=== PATIENT | female | born 1960 | race Caucasian/White ===

== ENCOUNTER → 2025-07-26 | Outpatient (CLI) | payer OTHER, SELFPAY ==
[2025-07-26 16:46] LABS: PTHIN 145 pg/mL (11-61)
[2025-07-26 17:03] LABS: Calcium 10.3 mg/dL (7.6-11.0); Vitamin D,25 Hydroxy 19.1 ng/mL (30-100)
== END | disposition home or self-care (01) ==
LOC: LAB 15:34
PROVIDERS: PCP Family Medicine; Referring Provider Surgery; Visit Provider Surgery
DX: D35.1 Benign neoplasm of parathyroid gland (principal); R79.89 Other specified abnormal findings of blood chemistry; E83.52 Hypercalcemia
CPT/HCPCS: 36415; 82306; 82310; 83970

== ENCOUNTER → 2025-08-02 | Outpatient (CLI) | payer OTHER, SELFPAY ==
[2025-08-02 12:29] LABS: (24 HR) Urine Calcium 390.4 mg/24 HR (100.0-300.0); Calcium Urine pH Range 2
== END | disposition home or self-care (01) ==
LOC: LABSPEC 09:56
PROVIDERS: PCP Family Medicine; Referring Provider Surgery; Visit Provider Surgery
DX: D35.1 Benign neoplasm of parathyroid gland (principal); R79.89 Other specified abnormal findings of blood chemistry; E83.52 Hypercalcemia
CPT/HCPCS: 81050; 82340

== ENCOUNTER → 2025-09-12 | Outpatient (CLI) | payer OTHER, SELFPAY ==
[2025-09-12 17:07] LABS: PTHIN 114 pg/mL (11-61)
[2025-09-12 17:30] LABS: Calcium 11.0 mg/dL (7.6-11.0); Vitamin D,25 Hydroxy 36.7 ng/mL (30-100)
== END | disposition home or self-care (01) ==
LOC: LAB 15:27
PROVIDERS: PCP Family Medicine; Referring Provider Surgery; Visit Provider Surgery
DX: D35.1 Benign neoplasm of parathyroid gland (principal)
CPT/HCPCS: 36415; 82306; 82310; 83970

== ENCOUNTER 2025-10-14 05:51 | Day surgery (SDC) | payer OTHER, SELFPAY ==
--- NOTE | 2025-10-01 10:48 | EKG12_ITS ---
Test Reason : PREOP Blood Pressure : */* mmHG Vent. Rate : 68 BPM Atrial Rate : 68 BPM P-R Int : 162 ms QRS Dur : 80 ms QT Int : 376 ms P-R-T Axes : 62 68 0 degrees QTcB Int : 399 ms Normal sinus rhythm Low voltage QRS Nonspecific ST and T wave abnormality Abnormal ECG Confirmed by Krishna Diaz ([id number]), assignment editor KAMINI WEBER ([id number]) on 10/02/2025 7:16:35 AM Referred By: Krishna Caraballo Confirmed By: Krishna Diaz
[2025-10-01 13:21] LABS: Anion Gap 8 (5-15); BUN 12 mg/dL (4-19); BUN/Creat Ratio 13.8 RATIO (10-20); Calcium,Total 10.5 mg/dL (7.6-11.0); Carbon Dioxide 26.5 mmol/L (21.0-32.0); Chloride 105 mmol/L (98-108); Glucose 212 mg/dL (70-99); Potassium 4.2 mmol/L (3.3-5.1)
--- NOTE | 2025-10-02 10:17 | PAT.ANE_ITS ---
Pre-Assessment Diagnosis/Proposed Procedure Planned Operative Procedure(s): (N/A) Parathyroidectomy w/IONM Anesthesia History Anesthesia History - nurse sane: Anesthesia History - nurse sane Hx Hospitalization No 09/30/25 11:04 Any Problems With Anesthesia Yes 09/30/25 11:04 Cholinesterase deficiency No 09/30/25 11:04 You/Your Family Experience No 09/30/25 11:04 fever (hyperthermia) with Relationship Recent Exposure to Contagious Disease Does patient have nerve No 09/30/25 11:04 stimulator Patient instructed to have device shut off --Does patient have Pacemaker or ICD? When Was Last Pacemaker Check QUESTION #4 FULL TEXT: You/Your Family Experience fever (hyperthermia) with Anesthesia Last Oral Intake Last Oral intake: Last Oral Intake NPO since Meds taken in AM with sips of water? Meds patient instructed to take am of surgery PONV PONV - nurse sane: PONV - nurse sane Female Yes 09/30/25 11:04 HX of Motion Sickness Yes 09/30/25 11:04 HX of N/V After Surgery Yes 09/30/25 11:04 Non-Smoker Yes 09/30/25 11:04 Duration of Surgery greater Yes 09/30/25 11:04 than 60 minutes Number of Risk Factors 5 09/30/25 11:04 PONV Score Severe Risk 09/30/25 11:04 Height & Weight Height & Weight: Anesthesia: Height & Weight Height 5 ft 4 in 09/12/25 14:25 Respiratory Assessment Respiratory Assessment - nurse sane: Respiratory Tract Infection Hx - nurse sane Hx Respiratory Tract Infection No 09/30/25 11:04 STOP Sleep Apnea STOP Sleep Apnea - nurse sane: STOP Sleep Apnea - nurse sane Hx Hypertension Yes: controlled with med 09/30/25 11:04 Hx Sleep Apnea No 09/30/25 11:04 CPAP BIPAP Do you snore loudly (louder Yes 09/30/25 11:04 than talking or can be heard Do you often feel tired/ No 09/30/25 11:04 fatigued/ sleepy during daytime? Has anyone observed you stop No 09/30/25 11:04 breathing during sleep? STOP Results Positive 09/30/25 11:04 QUESTION #5 FULL TEXT : Do you snore loudly (louder than talking or can be heard through closed doors)? Tobacco Use History Tobacco Use History - nurse sane: Tobacco Use History - nurse sane Tobacco Use Smoking Status Never smoker 09/30/25 11:04 Hx Tobacco Use No 09/30/25 11:04 Years Smoking Packs Smoked per Day Smoking Cessation Date was within the last 15 years Hx Smoking Cessation Date Hx Smoking Cessation Counseling Hematologic Medial History Hematologic Hx - nurse sane: Hematologic Medical Hx - psychiatric lpn Hx of Blood Transfusion No 09/30/25 11:04 Hx of Transfusion in last 3 No 09/30/25 11:04 Months Date of Last Transfusion (if within last 3 months) Ever experience any problems No 09/30/25 11:04 with transfusion(s)? Specify any problems Hx of Preganancy in last 3 N/A 09/30/25 11:04 Months Nurse Filling Out Transfusion NBUCHER 09/30/25 11:04 & Questions: Date: 09/30/25 09/30/25 11:04 Time: 11:06 09/30/25 11:04 Patient unable to answer at this time (ie. confused, unrespo /Reproduction History /Reproductive History - nurse sane: /Reproductive Hx- nurse sane Hx Now No 09/30/25 11:04 Gestational Age (in weeks): EDC: Hx Hx Para Hx Section SAB No 09/30/25 11:04 [facility] Medical History (Updated 09/30/25 @ 11:17 by Sharmin Doe) Wears glasses Cancer High cholesterol PONV (postoperative nausea and vomiting) History of IBS Non-smoker Leg cramps Parathyroid adenoma Low vitamin D level Serum calcium elevated Elevated parathyroid hormone Fatigue Acid reflux HTN (hypertension) Diabetes Breast cancer Home Medications Medication Instructions Recorded Last Taken Type atorvastatin 40 mg tablet (Lipitor) 40 mg PO QDAY 06/29 08/22 Unknown History famotidine 20 mg tablet 20 mg PO BID 07/26/25 Unknow n History lisinopril 10 mg tablet 10 mg PO QDAY 07/26/25 Unkno wn History metformin 500 mg tablet,extended 500 mg PO BID 5 Unknown History release 24 hr cetirizine 10 mg tablet (24Hour 10 mg PO DAILY PRN all ergy symptoms 09/30/25 Unknown History Allergy) cholecalciferol (vitamin D3) 1,250 1,250 mcg PO QWEEK 09/30/25 Unknown History mcg (50,000 unit) capsule Allergy/AdvReac Type Severity Reaction Status Date / Time Penicillins (PCN) Allergy Mild Hives Verified 09/30/25 11:02 Surgical History S/P lumpectomy, right breast S/P tubal ligation Hx of exploratory laparotomy S/P D&C (status post dilation and curettage) S/P section S/P laparoscopic cholecystectomy S/P appendectomy Social History Smoking Status: Never smoker alcohol intake: never Audit: Pertinent Findings Pertinent Findings EKG Perinent findings: 09/2025: Normal sinus rhythm Low voltage QRS Nonspecific ST and T wave abnormality Recommendation Anesthesia Recommendation Anesthesia recommendation: OPTIMIZED for anesthesia
[2025-10-14] VITALS (11 sets, daily range): BP systolic 139–170; BP diastolic 85–98; PULSE 79–116; RESP 16–18; TEMP 36.1–37.2; O2SAT 93–100; BMI 34.8
--- OUTSIDE RECORDS SUMMARY | 2025-10-14 05:56 | XMS RPT_ITS | CCD ---
Author Organization [facility] Inform ion [facility] Care Team Providers Care Aerospace Project Engineer Name Role Phone KarloJair tavaresvadim Ulloa Unavailable Unavailable KarlojasJair bossvadim Ulloa Unavailable Unavailable Hawk Zavala Unavailable Unavailable Amirneni, Kartikee Vlad Primary Care Provider Braden Gee Admitting Unavailable Respiratory Medicine PhysicianBraden bennett Attending Unavailable Amirneni, Vamsee K. Admitting Unavailable Amirneni, Vamsee K. Attending Unavailable Amirneni, Vamsee K. Admitting Unavailable Amirneni, Vamsee K. Attending Unavailable Izabella Lopez Unavailable Unavailable Amirneni, Dereje Jcishna Primary Care Provider Izabella Lopez Unavailable Unavailable Amirneni, Luciaaktano JcVlad Primary Care Provider Amirnadya, Vamsee Vlad Unavailable Amirnadya, Vamsee Vlad Unavailable Maya MORALES, Luciaaktano Chu Primary Care Provide r Izabella Lopez RN Unavailable Unavailab Dereje Gomez MD Unavailable Lucia Trejo MDaktano Chu Primary Care Provide r Maya MORALES, Dereje Chu Unavailable LYN JAMISON Admitting Unavail able LYN JAMISON Attending Unavail able DEREJE TREJO Primary Care Unavail able [facility] John BROWNLEE, Izabella S Unavailable Unavailab mohsen Trejo [facility] Maya MORALES, [facility] Provider Maya MORALES, [facility] Provide r John BROWNLEE, Izabella S Unavailable Unavailab mohsen Trejo MD, [facility] Unavailable Maya MORALES, [facility] Provide r Maya MORALES, [facility] Unavailable Maya MORALES, [facility] Provide r John BROWNLEE, Izabella S Unavailable Unavailab mohsen Trejo MD, [facility] Un[facility] Maya MORALES, [facility] Primary [facility] Provide r John BROWNLEE, Izabella S Unavailable Unavailab mohsen Trejo MD, [facility] Unavailable Maya [facility]ORALES, [facility] Un[facility] DAMON COE Attending Unava ilable MAYA, [facility] Primary Care Unavail able SEBAS LEE Attending Unavailabl e SALINARNADYA, [facility] Primary Care Unavail able Melvi MORALES, Elo Camejo Primary Care Pro vider John BROWNLEE, Izabella S Unavailable Unavailab mohsen Trejo MD, [facility] Un[facility] Melvi MORALES, Elo Camejo Primary Care Pro vider Meliv MORALES, Elo Camejo Unavailable Maya MORALES, [facility] Primary [facility] Provider SELF, SELF Referring Un[facility] Unavailable OH PRICE Attending Unavailable Melvi, Elo Primary Care Provider [phone] [employer] BEAUTY SALES ADVISOR, Shannan L Unavailable BAN, SHANNAN Attending Unavailable MELVI, ELO Primary Care Unavailable BAN, SHANNAN Attending Unavailable MELVI, ELO Primary Care Unavailable BAN, SHANNAN Attending Unavailable MELVI, ELO Primary Care Unavailable HANSA, ROBBIE N. Referring Unavailable HANSA, ROBBIE N. Attending Unavailable MELVI, ELO ROLANDO MOUNIR Primary Care Blanca vailable HANSA, ROBBIE N. Attending Unavailable MELVI, ELO ROLANDO MOUNIR Primary Care Blanca vailable HANSA, ROBBIE N. Referring Unavailable HANSA, ROBBIE N. Attending Unavailable MELVI, ELO ROLANDO MOUNIR Primary Care Blanca vailable HANSA, ROBBIE N. Referring Unavailable ELO OGDEN MD Primary Care Provider ELO OGDEN MD Referring Provider Dr. Krishna Caraballo MD Attending Provider Dr. Krishna Caraballo MD Referring Provider [phone] [employer] BEAUTY SALES ADVISOR, Shannan L Unavailable HANSA, ROBBIE N. Attending Unavailable HANSA, ROBBIE N. Referring Unavailable MELVI, ELO ROLANDO MOUNIR Primary Care Blanca vailable MELVI, ELO ROLANDO MOUNIR Primary Care Blanca vailable MELVI, ELO ROLANDO MOUNIR Attending Blanca vailable MELVI, ELO ROLANDO MOUNIR Referring Blanca vailable ZHENG, SHANNAN L Attending Unavailable ZHENG, SHANNAN L Referring Unavailable MELVI, ELO ROLANDO MOUNIR Primary Care Blanca vailable ZHENG, SHANNAN L Referring Unavailable STEPHEN SOLOMON Attending Unavailable MELVI, ELO ROLANDO MOUNIR Primary Care Blanca vailable ZHENG, SHANNAN L Admitting Unavailable HANSA, ROBBIE N. Admitting Unavailable HANSA, ROBBIE N. Attending Unavailable MELVI, ELO ROLANDO MOUNIR Primary Care Blanca vailable ELO OGDEN MD Primary Care Physician Dr. Krishna Caraballo MD Attending Physician SHANNAN CALZADA Attending Unavailable MELVI, ELO ROLANDO MOUNIR Primary Care Blanca vailable MELVI, ELO ROLANDO MOUNIR Primary Care Blanca vailable MELVI, ELO ROLANDO MOUNIR Attending Blanca vailable MELVI, ELO ROLANDO MOUNIR Primary Care Blanca vailable MELVI, ELO ROLANDO MOUNIR Attending Blanca vailable MELVI, ELO ROLANDO MOUNIR Referring Blanca vailable MELVI, ELO ROLANDO MOUNIR Admitting Blanca vailable MELVI, ELO ROLANDO MOUNIR Primary Care Blanca vailable SEBAS LEE Attending Unavailab GWEN Wilson Attending Unavail able MELVI, ELO ROLANDO MOUNIR Primary Care Blanca vailable SEBAS LEE Referring Unavailab SHANNAN Victor Attending Unavailable MELVI, ELO ROLANDO MOUNIR Primary Care Blanca vailable MELVI, ELO ROLANDO MOUNIR Primary Care Blanca vailable MELVI, ELO ROLANDO MOUNIR Attending Blanca vailable MELVI, ELO ROLANDO MOUNIR Referring Blanca vailable MELVI, ELO ROLANDO MOUNIR Admitting Blanca vailable ROBBIE SANTO Attending Unavailable MELVI, ELO ROLANDO MOUNIR Primary Care Blanca vailable ROBBIE SANTO Attending Unavailable MELVI, ELO ROLANDO MOUNIR Primary Care Blanca vailable MELVI, ELO ROLANDO MOUNIR Primary Care Blanca vailable MELVI, ELO ROLANDO MOUNIR Attending Blanca vailable MELVI, ELO ROLANDO MOUNIR Primary Care Blanca vailable MELVI, ELO ROLANDO MOUNIR Attending Blanca vailable Krishna Caraballo Attending Unavailable MELVI, ELO Primary Care Unavailable MELVI, ELO Referring Unavailable MELVI, ELO Primary Care Unavailable MELVI, ELO Referring Unavailable Krishna Caraballo Attending Unavailable Krishna Caraballo Attending Unavailable [employer] Unavailable MELVI, ELO Primary Care Unavailable Krishna Caraballo Referring Unavailable Krishna Caraballo Referring Unavailable ELO OGDEN Primary Care Unavailable Krishna Caraballo Attending Unavailable Krishna Caraballo Referring Unavailable ELO OGDEN Primary Care Unavailable Krishna Caraballo Attending Unavailable Krishna Caraballo Referring Unavailable ELO OGDEN Primary Care Unavailable Krishna Caraballo Attending Unavailable Allergies Allergy Classification Reported Allergen(s) Allergy Type Date of Onset Reaction(s) Facility NSAIDs (1 source) NSAIDs Drug Allergy 7 [facility] Work Phone: Penicillins (antibiotic) (9 sources) Penicillins; 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: [PENICILLINS] Drug Allergy 7 Swelling [facility] (20 sources) Penicillins; 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: [penicillins] Propensity to adverse reactions to drug (disorder) 7 Swelling [facility] Repository Comment on above: swelling (20 sources) NSAIDs Propensity to adverse reactions to drug 7 [facility] Medications Current Medications Medication Drug Class(es) Dates Sig (Normalized) Sig (Original) anastrozole 1 mg oral tablet (18 sources) Aromatase Inhibitor Start: 06-19-2019 End: 09-10-2020 take 1 tablet by mouth once daily anastrozole (ARIMIDEX) 1 mg tablet Indications: Invasive ductal carcinoma of breast, female, right (HCC) Take 1 (one) tablet (1 mg total) by mouth daily . 30 tablet 5 03/14/2020 09/10/2020 Active atorvastatin 40 mg oral tablet (20 sources) HMG-CoA Reductase Inhibitor Start: 07-26-2025 take 1 tablet by mouth once daily Start: 05-19-2018 End: 10-24-2024 take 1 tablet by mouth once daily atorvastatin (LIPITOR) 40 MG tablet Indications: Type 2 diabetes mellitus without complication, without long-term current use of insulin (HCC) Take 1 (one) tablet (40 mg total) by mouth daily . 100 tablet 3 10/24/2024 Active azithromycin 250 mg oral tablet (8 sources) Macrolide Antimicrobial Start: 08-18-2023 End: 08-23-2023 Azithromycin (Zithromax Z-Davin) 250 MG tablet Indications: Acute non-recurrent sinusitis, unspecified location Take 2 tablets (500 mg) on Day 1, then 1 tablet (250 mg) daily on Days 2-5 6 tablet 0 08/18/2023 08/23/2023 Active Start: 04-12-2021 End: 06-25-2021 azithromycin (Zithromax Z-Pa k) 250 MG tablet Take 2 tabs today, then one tab daily x 4 days . 6 tablet 0 04/12/2021 06/25/2021 Discontinued Start: 01-12-2020 azithromycin ( Zithromax Z-Davin) 250 MG tablet Indications: Bilateral otitis media, unspecified otitis media type Take 2 tablets on day one and 1 tablet on days 2 through 5. . 6 tablet 0 01/12/2020 Active benzonatate 200 mg oral capsule (5 sources) Non-narcotic Antitussive Start: 08-18-2023 take 1 capsule by mouth three times daily as needed for cough benzonatate 200 MG capsule Indications: Acute cough Take 1 capsule by mouth 3 times daily as needed for Cough. 21 capsule 0 08/18/2023 Active Start: 01-12-2020 benzonatate (T essalon Perles) 100 MG capsule Indications: Upper respiratory tract infection, unspecified type Take one or two capsules every 8 hours as needed for cough. Do not chew. . 60 capsule 1 01/12/2020 Active calcium carbonate 1500 mg / cholecalciferol 0.01 mg oral tablet (20 sources) Vitamin D End: 06-25-2021 calcium carbonate-vitamin D 600mg-400units 600-400 MG-UNIT tablet Take by mouth Twice daily. 0 Active calcium carbonat e-vitamin D 600mg-400units 600-400 MG-UNIT tablet Take by mouth Twice daily. 0 Active cefdinir 300 mg oral capsule (1 source) Cephalosporin Antibacterial Start: 06-08-2022 End: 06-18-2022 take 1 capsule by mouth twice daily cefdinir (OMNICEF) 300 MG capsule Take 1 (one) capsule (300 mg total) by mouth 2 (two) times a day for 10 days . 20 capsule 0 06/08/2022 06/18/2022 Active cetirizine hydrochloride 10 mg oral tablet (11 sources) Histamine-1 Receptor Antagonist take 1 tablet by mouth once daily cetirizine (ZYRTEC) 10 MG tablet Take 1 (one) tablet (10 mg total) by mouth daily . Active dextromethorphan hydrobromide 15 mg / guaiFENesin 400 mg / pseudoephedrine hydrochloride 60 mg oral tablet (2 sources) alpha-Adrenergic Agonist, Uncompetitive H-ipxcgn-B-asparta te Receptor Antagonist, Sigma-1 Agonist Start: 07-26-2021 End: 08-05-2021 take 1 tablet by mouth twice daily as needed pseudoephedrine-DM- guaiFENesin (Capmist DM) 60-15-400 mg Tab Indications: Exposure to 2019 novel coronavirus Take 1 (one) tablet by mouth 2 (two) times a day as needed . 20 tablet 0 07/26/2021 08/05/2021 Active docusate sodium 100 mg oral capsule (2 sources) Start: 08-12-2022 End: 09-11-2022 take 1 capsule by mouth twice daily docusate sodium (COLACE) 100 MG capsule Take 1 (one) capsule (100 mg total) by mouth 2 (two) times a day . 60 capsule 0 08/12/2022 09/11/2022 Active ergocalciferol 1.25 mg oral capsule (20 sources) Provitamin D2 Compound Start: 06-25-2021 take 1 capsule by mouth once ergocalciferol (ERGOCALCIFEROL) 1,250 mcg (50,000 unit) capsule Take 1 (one) capsule (50,000 Units total) by mouth every 14 (fourteen) days . 6 capsule 3 06/25/2021 Active Start: 03-05-2021 End: 06-25-2021 take 1 capsule by mouth every week ergocalciferol (ERGOCALCIFEROL) 1,250 mcg (50,000 unit) capsule Take 1 (one) capsule (50,000 Units total) by mouth once a week . 4 capsule 3 03/05/2021 06/25/2021 Discontinued (Reorder) exemestane 25 mg oral tablet (20 sources) Aromatase Inhibitor Start: 09-02-2020 End: 10-24-2024 exemestane (Aromasin) 25 MG tablet famotidine 20 mg oral tablet (20 sources) Histamine-2 Receptor Antagonist Start: 12-21-2022 End: 10-24-2025 take 1 tablet by mouth twice daily fexofenadine hydrochloride 180 mg oral tablet (20 sources) Histamine-1 Receptor Antagonist Start: 02-15-2018 End: 02-17-2021 take 1 tablet by mouth once daily fexofenadine (LAVERNE ALLERGY) 180 MG Tab tablet Take 1 tablet by mouth daily. 0 02/15/2018 Active fluticasone propionate 0.05 mg/actuat metered dose nasal spray (9 sources) Corticosteroid Start: 06-08-2022 End: 06-08-2023 take 2 spray(s) nasal route once daily fluticasone propionate (FLONASE) 50 mcg/actuation nasal spray Instill 2 (two) sprays into each nostril daily . 16 g 12 06/08/2022 06/08/2023 Active Start: 01-12-2020 End: 02-11-2020 take 2 spray(s) nasal route once daily fluticasone propionate (FLONASE) 50 mcg/actuation nasal spray Indications: Bilateral otitis media, unspecified otitis media type Instill 2 (two) sprays into each nostril daily . 16 g 0 01/12/2020 Active 12 hr guaiFENesin 600 mg extended release oral tablet (1 source) Start: 04-12-2021 End: 04-22-2021 take 1 tablet by mouth twice daily guaiFENesin (Mucinex) 600 mg 12 hr tablet Take 1 (one) tablet (600 mg total) by mouth 2 (two) times a day for 10 days . 20 tablet 0 04/12/2021 04/22/2021 Active imiquimod 50 mg/ml topical cream (1 source) Start: 05-03-2024 imiquimod (Ald timothy) 5 % cream Indications: Superficial basal cell carcinoma Apply to both sites on left lower leg once daily for 6 weeks 24 packet 1 05/03/2024 Active lisinopril 10 mg oral tablet (20 sources) Angiotensin Converting Enzyme Inhibitor Start: 07-26-2025 take 1 tablet by mouth once daily Start: 09-24-2022 End: 12-13-2024 take 1 tablet by mouth at bedtime lisinopriL (PRINIVIL,ZESTRIL) 10 MG tablet Indications: Essential hypertension Take 1 (one) tablet (10 mg total) by mouth at bedtime . 100 tablet 3 10/24/2024 Active Start: 09-24-2022 End: 09-24-2022 take 2 tablets by mouth at bedtime lisinopriL (PRINIVIL,ZESTRIL) 5 MG tablet Indications: Essential hypertension Take 2 (two) tablets (10 mg total) by mouth at bedtime . 180 tablet 2 09/24/2022 09/24/2022 Discontinued Start: 04-27-2022 End: 09-24-2022 take 1 tablet by mouth once daily lisinopriL (PRINIVIL,ZESTRIL) 5 MG tablet Take 1 (one) tablet (5 mg total) by mouth daily . 90 tablet 1 04/27/2022 09/24/2022 Discontinued (Reorder) Start: 04-04-2019 End: 04-25-2022 take 1 tablet by mouth once daily lisinopriL (PRINIVIL,ZESTRIL) 5 MG tablet Take 1 (one) tablet (5 mg total) by mouth daily . 90 tablet 1 11/02/2021 04/25/2022 Discontinued (Reorder) Start: 05-19-2018 End: 04-04-2019 take 1 tablet by mouth once daily lisinopril 2.5 MG Tab tablet Take 1 tablet by mouth daily. 30 tablet 2 05/19/2018 Active meloxicam 15 mg oral tablet (18 sources) Nonsteroidal Anti-inflammatory Drug Start: 10-03-2023 End: 10-02-2024 meloxicam (Mobic) 15 MG tablet 10/03/2023 Active Start: 03-24-2023 End: 04-23-2023 take 1 tablet by mouth once daily meloxicam (MOBIC) 7.5 MG tablet Indications: Right elbow pain Take 1 (one) tablet (7.5 mg total) by mouth daily . 30 tablet 0 03/24/2023 04/23/2023 24 hr metFORMIN hydrochlorid e 500 mg extended release oral tablet (20 sources) Biguanide Start: 07-26-2025 take 1 tablet by charlotte th twice daily Start: 12-19-2023 End: 10-24-2024 take 1 tablet by mouth twice daily at breakfast metFORMIN (Glucophage XR) 500 MG 24 hr tablet Indications: Type 2 diabetes mellitus without complication, without long-term current use of insulin (HCC) Take 1 (one) tablet (500 mg total) by mouth 2 (two) times a day with breakfast and lunch . 180 tablet 3 10/24/2024 Active Start: 03-24-2023 take 1 tablet by charlotte th every twenty-four hours metFORMIN XR (Glucophage-XR) 500 MG 24 hr tablet Take 500 mg by mouth. 03/24/2023 Active Start: 09-24-2022 End: 12-17-2023 take 1 tablet by mouth twice daily at breakfast metFORMIN (Glucophage XR) 500 MG 24 hr tablet Indications: Type 2 diabetes mellitus without complication, without long-term current use of insulin (HCC) Take 1 (one) tablet (500 mg total) by mouth 2 (two) times a day with breakfast and lunch . 90 tablet 1 03/24/2023 12/17/2023 Discontinued (Reorder (Suppress CancelRx Message to Pharmacy)) Start: 05-19-2018 End: 09-24-2022 take 1 tablet by mouth once daily at breakfast metFORMIN (Glucophage XR) 500 MG 24 hr tablet Take 1 (one) tablet (500 mg total) by mouth daily with breakfast . 90 tablet 1 02/03/2022 09/24/2022 Discontinued (Reorder) metoclopramide 5 mg oral tablet (4 sources) Dopamine-2 Receptor Antagonist Start: 07-19-2022 take 1 tablet by mouth every eight hours as needed metoclopramide (REGLAN) 5 MG tablet Take 1 (one) tablet (5 mg total) by mouth every 8 (eight) hours as needed (for nausea/vomiting) . 30 tablet 0 07/19/2022 Active Start: 07-12-2022 End: 07-19-2022 take 1 tablet by mouth four times daily at mealtime metoclopramide (REGLAN) 5 MG tablet Take 1 (one) tablet (5 mg total) by mouth 4 (four) times a day with meals and nightly for 5 days . 20 tablet 0 07/12/2022 07/19/2022 Discontinued (Reorder) 24 hr oxybutynin chloride 5 mg extended release oral tablet (4 sources) Cholinergic Muscarinic Antagonist Start: 06-27-2020 End: 06-27-2021 take 1 tablet by mouth once daily oxybutynin (DITROPAN-XL) 5 MG 24 hr tablet Take 1 (one) tablet (5 mg total) by mouth daily . 30 tablet 5 06/27/2020 06/27/2021 Active predniSONE 20 mg oral tablet (5 sources) Start: 04-12-2021 End: 04-15-2021 predniSONE (DELTASONE) 20 MG tablet Take 2 tablets once daily x 3 days with food . 6 tablet 0 04/12/2021 04/15/2021 Active Start: 01-12-2020 predniSONE (DE LTASONE) 20 MG tablet Indications: Upper respiratory tract infection, unspecified type Take 2 tablets daily for 5 days. . 10 tablet 0 01/12/2020 Active Completed/Discontinued Medications Medication Drug Class(es) Dates Sig (Normalized) Sig (Original) acetaminophen 325 mg oral tablet (11 sources) Start: 07-26-2021 End: 11-02-2021 take 1 tablet by mouth every six hours as needed for headache and fever and fever acetaminophen (TYLENOL) tablet 650 mg acetaminophen 325 mg / HYDROcodone bitartrate 5 mg oral tablet (3 sources) Opioid Agonist Start: 06-04-2021 End: 08-18-2023 take 1-2 tablets by mouth every four hours as needed hydroCODone-acetami nophen 5-325 MG tablet Indications: Post-op pain Take 1-2 tablets by mouth every 4 hours as needed for up to 7 days. 25 tablet 0 06/04/2021 08/18/2023 Discontinued acetaminophen 325 mg / oxyCODONE hydrochloride 5 mg oral tablet (8 sources) Opioid Agonist Start: 02-27-2019 End: 04-04-2019 take 1 tablet by mouth every six hours as needed for pain, then take 3 tablets by mouth as needed for pain oxyCODONE-acetamino phen (PERCOCET) 5-325 mg per tablet Indications: Postoperative pain , Malignant neoplasm of right female breast, unspecified estrogen receptor status, unspecified site of breast (HCC) , Invasive ductal carcinoma of breast, female, right (HCC) Take 1 (one) tablet by mouth every 6 (six) hours as needed for pain (Days supply per fill: 3) . 12 tablet 0 02/27/2019 04/04/2019 Discontinued aspirin 81 mg delayed release oral tablet (11 sources) Platelet Aggregation Inhibitor, Nonsteroidal Anti-inflammatory Drug Start: 08-09-2018 End: 08-09-2019 take 1 tablet by mouth once daily aspirin 81 MG EC tablet Take 1 (one) tablet (81 mg total) by mouth daily. 30 tablet 11 08/09/2018 02/27/2019 Discontinued B cmplx 4/vit D3/C/folic/zinc (VITAL-D RX ORAL) (6 sources) End: 11-02-2021 take 15300 [IU] by mouth every other week B cmplx 4/vit D3/C/folic/zinc (VITAL-D RX ORAL) Take 50,000 Units by mouth Every two weeks . 0 11/02/2021 Discontinued take 01653 [IU] by m outh every other week B cmplx 4/vit D3/C/folic/zinc (VITAL-D R X ORAL) Take 50,000 Units by mouth Every two weeks . 0 Active 5 ml bupivacaine hydrochloride 5 mg/ml injection (1 source) Amide Local Anesthetic Start: 06-04-2021 End: 06-04-2021 bupivacaine (PF) (MARCAINE) 0.5 % injection Calcium Carbonate (1 source) End: 07-09-2019 take 1 tablet by mouth twice daily calcium carbonate (CALCIUM 500 ORAL) Take 1 tablet by mouth 2 (two) times a day . 0 07/09/2019 Discontinued cholecalciferol 1.25 mg oral capsule (20 sources) Vitamin D Start: 07-31-2025 End: 08-28-2025 take 1 capsule by mouth every week Cholecalciferol (Vitamin D3) 1,250 mcg (50,000 unit) capsule Discontinued 1250 ug PO EVERY WEEK 4 0 July 31, 2025 12:00am August 27, 2025 12:00am August 28, 2025 12:11am take one capsule by mouth once weekly Start: 07-31-2025 End: 08-28-2025 take 1 capsule by mouth once daily Cholecalciferol (Vitamin D3) 50 mcg (2,000 unit) capsule Discontinued 50 ug PO daily 28 0 July 31, 2025 12:00am August 27, 2025 12:00am August 28, 2025 12:11am take one capsule by mouth daily Start: 07-26-2025 End: 07-31-2025 take 1 capsule by mouth once daily Cholecalciferol (Vitamin D3) 25 mcg (1,000 unit) capsule Discontinued 25 ug PO daily July 26, 2025 12:00am July 31, 2025 6:58am Start: 11-30-2017 End: 08-18-2023 take 3 capsules by mouth once daily Cholecalciferol (VITAMIN D) 2000 units Cap Take 3 capsules by mouth daily. 0 11/30/2017 08/18/2023 Discontinued Start: 11-30-2017 End: 04-04-2019 cholecalciferol, vitamin D3, 2,000 unit cap Take 6,000 Units by mouth . 0 11/30/2017 04/04/2019 Discontinued take 1 tablet by charlotte th once daily cholecalciferol, vitamin D3, (cholecalciferol) 1,000 unit tablet Take 1 (one) tablet (1,000 Units total) by mouth daily . Active 1 ml denosumab 60 mg/ml prefilled syringe (13 sources) RANK Ligand Inhibitor Start: 09-07-2023 End: 09-07-2023 denosumab (PROLIA) injection 60 mg Start: 03-09-2023 End: 03-09-2023 denosumab (PROLIA) injection 60 mg Start: 03-10-2022 End: 03-10-2022 denosumab (PROLIA) injection 60 mg denosumab (Proli a) 60 MG/ML solution prefilled syringe Inject 60 mg under the skin. Active inject 1 mL by subcu taneous injection once denosumab (PROLIA) 60 MG/ML SOSY injection Inject 1 mL under the skin once. 0 Active ergocalciferol, vitamin D2, (VITAMIN D2 ORAL) (1 source) End: 07-09-2019 take 1 tablet by mouth twice daily ergocalciferol, vitamin D2, (VITAMIN D2 ORAL) Take 1 tablet by mouth 2 (two) times a day . 0 07/09/2019 Discontinued gentamicin (GARAMYCIN) 80 mg in sodium chloride 0.9 % 500 mL irrigation solution (1 source) Start: 06-04-2021 End: 06-04-2021 gentamicin (GARAMYCIN) 80 mg in sodium chloride 0.9 % 500 mL irrigation solution ibuprofen 100 mg oral tablet (2 sources) Nonsteroidal Anti-inflammatory Drug Start: 04-02-2019 End: 04-01-2020 take 8 tablets by mouth every six hours as needed for pain ibuprofen (ADVIL,MOTRIN) 100 MG tablet Indications: Post-operative pain Take 8 (eight) tablets (800 mg total) by mouth every 6 (six) hours as needed for pain . 30 tablet 0 04/02/2019 04/04/2019 Discontinued 10 ml lidocaine hydrochloride 10 mg/ml injection (1 source) Antiarrhythmic, Amide Local Anesthetic Start: 06-04-2021 End: 06-04-2021 lidocaine (XYLOCAINE) 10 mg/mL injection omeprazole 40 mg delayed release oral capsule (20 sources) Proton Pump Inhibitor Start: 02-03-2022 End: 07-19-2022 take 1 capsule by mouth every other day omeprazole (PRILOSEC) 20 MG capsule Take 1 (one) capsule (20 mg total) by mouth every other day . 45 capsule 1 02/03/2022 07/19/2022 Discontinued Start: 05-19-2018 End: 08-18-2023 take 1 capsule by mouth once daily before breakfast omeprazole (PRILOSEC) 40 MG capsule Take 1 (one) capsule (40 mg total) by mouth every morning before breakfast . 90 capsule 0 07/19/2022 12/21/2022 Discontinued 0.25 mg, 0.5 mg dose 1.5 ml semaglutide 1.34 mg/ml pen injector (8 sources) Start: 12-21-2022 End: 12-21-2022 semaglutide (Ozempic) 0.25 m g or 0.5 mg(2 mg/1.5 mL) Pen Indications: Type 2 diabetes mellitus without complication, without long-term current use of insulin (HCC) Inject 0.25 (one-quarter) mg under the skin every 7 days . 2.25 mL 0 12/21/2022 12/21/2022 Discontinued Start: 09-24-2022 End: 02-28-2023 semaglutide (Ozempic) 0.25 m g or 0.5 mg(2 mg/1.5 mL) Pen Indications: Type 2 diabetes mellitus without complication, without long-term current use of insulin (HCC) Inject 0.5 (one-half) mg under the skin every 7 days . 4.5 mL 0 11/30/2022 12/21/2022 Discontinued 1000 ml sodium chloride 9 mg/ml injection (1 source) Start: 06-04-2021 End: 06-04-2021 sodium chloride 0.9% IV solution technetium (Tc-99m) tilmanocept (TC LYMPHOSEEK) injection 0.44-0.66 millicurie (1 source) Start: 02-27-2019 End: 02-27-2019 technetium (Tc-99m) tilmanocept (TC LYMPHOSEEK) injection 0.44-0.66 millicurie 1 ml triamcinolone acetonide 40 mg/ml injection (2 sources) Corticosteroid Start: 03-24-2021 End: 03-24-2021 triamcinolone acetonide (KENALOG-40) injection 40 mg Start: 04-17-2020 End: 04-17-2020 triamcinolone acetonide (LAITH ALOG-40) injection 40 mg vitamin b12 1 mg oral tablet (20 sources) Vitamin B12 Start: 10-31-2017 End: 08-18-2023 take 1 tablet by mouth once daily cyanocobalamin 1000 MCG Tab Take 1 tablet by mouth daily. 0 10/31/2017 08/18/2023 Discontinued End: 04-04-2019 take 1 tablet by mouth once daily cyanocobalamin (vitamin B-12) 500 MCG tablet Take 500 mcg by mouth daily . 0 04/04/2019 Discontinued Problems Active Problems Problem Classification Problem Date Documented Date Episodic/Chronic Administrative/social admission (6 sources) Patient encounter status; 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: [Persons encountering health services in other specified circumstances] Onset: 05-01-2024 05-01-2024 Episodic Anxiety disorders (4 sources) Mixed anxiety and depressive disorder; 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: [Anxiety disorder, unspecified] Onset: 10-31-2017 10-31-2017 Chronic Cancer of breast (20 sources) Malignant neoplasm of unspecified site of right female breast; 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: [Malignant neoplasm of female breast] Onset: 02-05-2019 02-15-2019 Chronic Cancer of breast (20 sources) 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; 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: [Invasive ductal carcinoma of breast, female, right (HCC)] Onset: 02-15-2019 02-15-2019 Chronic kidney disease (4 sources) Chronic kidney disease stage 2; 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: [Chronic kidney disease, stage 2 (mild)] Onset: 11-04-2017 11-04-2017 Chronic Diabetes mellitus with complications (4 sources) Type 2 diabetes mellitus; 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: [Type 2 diabetes mellitus with diabetic chronic kidney disease] Onset: 11-30-2017 11-30-2017 Chronic Diabetes mellitus without complication (20 sources) Type 2 diabetes mellitus without complication; 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: [Type 2 diabetes mellitus] Onset: 11-04-2017 Resolved: 11-30-2017 08-09-2018 Chronic Diabetes mellitus without complication (2 sources) Diabetes mellitus without complication Onset: 08-12-2025 Disorders of lipid metabolism (20 sources) Mixed hyperlipidemia; 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: [Hypertriglyceridemia ] Onset: 10-31-2017 Resolved: 11-04-2017 08-09-2018 Chronic Esophageal disorders (20 sources) Gastro-esophageal reflux disease without esophagitis; 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: [Gastroesophageal reflux disease without esophagitis] Onset: 10-31-2017 08-09-2018 Chronic Essential hypertension (20 sources) Essential hypertension; 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: [Essential (primary) hypertension] Onset: 04-04-2019 04-04-2019 Chronic Fever of unknown origin (2 sources) Fever; 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: [Fever, unspecified] Episodic Glaucoma (4 sources) Ocular hypertension; 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: [Ocular hypertension, bilateral] Onset: 05-15-2018 05-15-2018 Chronic Gout and other crystal arthropathies (4 sources) Chronic gouty arthritis; 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: [Idiopathic chronic gout, unspecified site, without tophus (tophi)] Onset: 11-04-2017 11-04-2017 Chronic Headache; including migraine (4 sources) Tension-type headache; 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: [Tension-type headache, unspecified, not intractable] Onset: 10-31-2017 10-31-2017 Chronic Immunizations and screening for infectious disease (4 sources) Suspected disease caused by 2019-nCoV; 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: [Suspected COVID-19 virus infection] Episodic Nutritional deficiencies (20 sources) Vitamin D deficiency; 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: [Vitamin D deficiency, unspecified] Onset: 10-31-2017 08-09-2018 Chronic Osteoarthritis (4 sources) Osteoarthritis of joint of bilateral hands; 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: [Primary osteoarthritis, right hand] Onset: 10-31-2017 10-31-2017 Chronic Other aftercare (1 source) Prophylactic aromatase inhibitors given; 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] 05-20-2025 Episodic Other and unspecified benign neoplasm (2 sources) Multiple benign melanocytic nevi ; 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: [Melanocytic nevi, unspecified] 10-27-2023 Episodic Other and unspecified benign neoplasm (1 source) Hemangioma of skin; 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: [Hemangioma of skin and subcutaneous tissue] 05-01-2024 Episodic Other and unspecified benign neoplasm (1 source) Dermatofibroma; 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: [Other benign neoplasm of skin, unspecified] 05-01-2024 Episodic Other and unspecified benign neoplasm (2 sources) Melanocytic nevi of right upper limb, including shoulder; 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: [Melanocytic nevi of right upper limb, including shoulder] Onset: 05-01-2024 Episodic Other and unspecified benign neoplasm (2 sources) Melanocytic nevi of trunk; 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: [Melanocytic nevi of trunk] Onset: 05-01-2024 Episodic Other and unspecified benign neoplasm (2 sources) Melanocytic nevi of left upper limb, including shoulder; 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: [Melanocytic nevi of left upper limb, including shoulder] Onset: 05-01-2024 Episodic Other and unspecified benign neoplasm (2 sources) Melanocytic nevi of right lower limb, including hip; 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: [Melanocytic nevi of right lower limb, including hip] Onset: 05-01-2024 Episodic Other and unspecified benign neoplasm (2 sources) Melanocytic nevi of left lower limb, including hip; 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: [Melanocytic nevi of left lower limb, including hip] Onset: 05-01-2024 Episodic Other and unspecified benign neoplasm (2 sources) Hemangioma of skin and subcutaneous tissue; 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: [Hemangioma of skin and subcutaneous tissue] Onset: 05-01-2024 Episodic Other and unspecified benign neoplasm (2 sources) Other benign neoplasm of skin, unspecified; 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: [Other benign neoplasm of skin, unspecified] Onset: 05-01-2024 Episodic Other and unspecified benign neoplasm (4 sources) Parathyroid adenoma; 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: [Benign neoplasm of parathyroid gland] 07-26-2025 Episodic Other and unspecified benign neoplasm (1 source) Benign neoplasm of parathyroid gland; 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: [Benign neoplasm of parathyroid gland] Onset: 09-20-2025 Episodic Other connective tissue disease (1 source) Trigger thumb of left hand; 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: [Trigger thumb, left thumb] Episodic Other connective tissue disease (1 source) Pain in right thumb; 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: [Pain in right finger(s)] Episodic Other connective tissue disease (1 source) Trigger thumb of right hand; 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: [Trigger thumb of right hand] Other connective tissue disease (1 source) Trigger thumb of left hand; 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: [Trigger finger of left thumb] Other connective tissue disease (13 sources) Trigger finger; 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: [Trigger finger] Onset: 08-19-2020 08-19-2020 Other ear and sense organ disorders (2 sources) Sensorineural hearing loss, bilateral; 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: [Sensorineural hearing loss, bilateral] Onset: 12-05-2024 12-05-2024 Chronic Other ear and sense organ disorders (1 source) Asymmetrical sensorineural hearing loss; 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: [Sensorineural hearing loss, bilateral] 12-05-2024 Chronic Other ear and sense organ disorders (1 source) Sensorineural hearing loss, bilateral; 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: [Sensorineural hearing loss, bilateral] Onset: 12-05-2024 Chronic Other ear and sense organ disorders (5 sources) Tinnitus of right ear; 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: [Tinnitus, right ear] 10-24-2024 Episodic Other ear and sense organ disorders (1 source) Bilateral tinnitus; 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: [Tinnitus, bilateral] 12-05-2024 Episodic Other ear and sense organ disorders (1 source) Excessive cerumen in ear canal ; 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: [Impacted cerumen, right ear] 12-05-2024 Episodic Other endocrine disorders (20 sources) Polycystic ovaries; 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: [Polycystic ovarian syndrome] Onset: 08-09-2018 08-09-2018 Chronic Other endocrine disorders (20 sources) Polycystic ovarian syndrome; 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: [PCOS (polycystic ovarian syndrome)] Onset: 10-31-2017 08-09-2018 Chronic Other endocrine disorders (20 sources) Polycystic ovary; 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: [Polycystic ovarian syndrome] Onset: 10-31-2017 08-19-2020 Chronic Other endocrine disorders (10 sources) Hyperparathyroidism; 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: [Hyperparathyroidism, unspecified] Onset: 07-01-2025 05-29-2025 Chronic Other endocrine disorders (6 sources) Hyperparathyroidism, unspecified; 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: [Hyperparathyroidism, unspecified] Onset: 05-27-2025 Chronic Other eye disorders (4 sources) Vitreous degeneration of right eye; 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: [Vitreous degeneration, right eye] Onset: 05-15-2018 05-15-2018 Chronic Other liver diseases (20 sources) Non-alcoholic fatty liver; 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: [Fatty (change of) liver, not elsewhere classified] Onset: 11-30-2017 01-02-2019 Chronic Other liver diseases (20 sources) Steatosis of liver; 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: [Fatty (change of) liver, not elsewhere classified] Onset: 11-30-2017 08-19-2020 Chronic Other liver diseases (20 sources) Fatty (change of) liver, not elsewhere classified; 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: [Other chronic nonalcoholic liver disease] Onset: 11-30-2017 06-25-2021 Chronic Other lower respiratory disease (2 sources) Cough; 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: [Cough] Episodic Other nervous system disorders (2 sources) Postoperative pain ; 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: [Other acute postprocedural pain] Episodic Other non-epithelial cancer of skin (17 sources) Basal cell carcinoma of cheek; 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: [Basal cell carcinoma of skin of other parts of face] Onset: 10-31-2017 Resolved: 02-15-2018 02-15-2018 Episodic Other non-traumatic joint disorders (1 source) Joint pain; 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: [Pain in unspecified joint] Episodic Other nutritional; endocrine; and metabolic disorders (20 sources) Hypercalcemia; 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: [Hypercalcemia] Onset: 06-25-2021 Chronic Other nutritional; endocrine; and metabolic disorders (4 sources) Body mass index 30+ - obesity; 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: [Obesity, unspecified] Onset: 10-31-2017 10-31-2017 Chronic Other nutritional; endocrine; and metabolic disorders (4 sources) Cholesterol level - finding; 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: [Lipoprotein deficiency] Onset: 11-10-2017 11-10-2017 Chronic Other nutritional; endocrine; and metabolic disorders (20 sources) Obese class I; 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: [Obesity, unspecified] Onset: 08-09-2022 08-09-2022 Chronic Other skin disorders (2 sources) Neck swelling; 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: [Neck swelling] Episodic Other skin disorders (1 source) Multiple actinic keratoses; 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: [Actinic keratosis] 10-27-2023 Episodic Other skin disorders (2 sources) Solar lentigo; 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: [Other melanin hyperpigmentation] 10-27-2023 Episodic Other skin disorders (2 sources) Seborrheic keratosis; 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: [Other seborrheic keratosis] 10-27-2023 Episodic Other upper respiratory disease (20 sources) Seasonal allergy; 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: [Other seasonal allergic rhinitis] Onset: 08-09-2018 08-09-2018 Chronic Other upper respiratory disease (8 sources) Allergic rhinitis; 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: [Allergic rhinitis, unspecified] Onset: 10-31-2017 Resolved: 05-15-2018 05-15-2018 Chronic Other upper respiratory infections (4 sources) Chronic sinusitis; 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: [Chronic sinusitis, unspecified] Onset: 10-31-2017 10-31-2017 Chronic Other upper respiratory infections (7 sources) Upper respiratory infection; 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: [Acute upper respiratory infection, unspecified] Onset: 08-18-2023 Episodic Otitis media and related conditions (1 source) Acute suppurative otitis media without spontaneous rupture of ear drum; 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: [Acute suppurative otitis media without spontaneous rupture of ear drum, left ear] Episodic Otitis media and related conditions (1 source) Otitis media of bilateral ears; 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: [Bilateral otitis media, unspecified otitis media type] Residual codes; unclassified (1 source) Influenza-like symptoms; 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: [Flu-like symptoms] Episodic Residual codes; unclassified (1 source) Reduced libido; 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: [Low libido] Episodic Residual codes; unclassified (3 sources) Family history of malignant neoplasm of pancreas; 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: [Family history of malignant neoplasm of digestive organs] 05-20-2025 Episodic Residual codes; unclassified (2 sources) Menopause present; 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: [Asymptomatic menopausal state] 05-20-2025 Episodic Residual codes; unclassified (2 sources) Family history of malignant neoplasm of digestive organs; 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: [Family history of malignant neoplasm of digestive organs] Onset: 08-28-2025 Episodic Spondylosis; intervertebral disc disorders; other back problems (4 sources) Lumbar spondylosis; 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: [Spondylosis without myelopathy or radiculopathy, lumbar region] Onset: 11-30-2017 11-30-2017 Chronic Substance-related disorders (8 sources) Caffeine-related disorder; 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: [Other stimulant abuse, uncomplicated] Onset: 10-31-2017 Resolved: 05-19-2018 05-19-2018 Chronic Thyroid disorders (5 sources) Hypothyroidism; 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: [Hypothyroidism, unspecified] Onset: 05-21-2025 05-22-2025 Chronic Unclassified (2 sources) Finding of axilla; 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: [Axillary fullness] Unclassified (1 source) Acute cough; 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: [Acute cough] Onset: 08-18-2023 Unclassified (3 sources) Invasive ductal carcinoma of breast, female, right (HCC) 05-20-2025 Unclassified (1 source) Prophylactic aromatase inhibitors given 05-20-2025 Viral infection (1 source) COVID-19; 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: [Other specified viral infection] Episodic Past or Other Problems Problem Classification Problem Date Documented Date Episodic/Chronic Abdominal hernia (4 sources) Umbilical hernia; 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: [Umbilical hernia without obstruction or gangrene] Onset: 8 11-30-2017 Episodic Biliary tract disease (20 sources) Cholelithiasis without obstruction; 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: [Calculus of gallbladder without cholecystitis without obstruction] Onset: 2 Episodic Blindness and vision defects (12 sources) Bilateral myopia of eyes; 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: [Myopia, bilateral] Onset: 8 05-15-2018 Episodic Cancer of breast (6 sources) History of malignant neoplasm of breast; 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: [Personal history of malignant neoplasm of breast] Onset: 5 05-20-2025 Episodic Malaise and fatigue (7 sources) Fatigue; 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: [Other fatigue] Onset: 5 05-20-2025 Episodic Mood disorders (20 sources) Mood disorders Onset: 2 Resolved: 5 08-10-2022 Nausea and vomiting (20 sources) Nausea and vomiting; 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: [Nausea with vomiting, unspecified] Onset: 2 Episodic Neoplasms of unspecified nature or uncertain behavior (4 sources) Neoplasm of uncertain behavior of skin; 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: [Neoplasm of uncertain behavior of skin] Onset: 3 10-28-2023 Episodic Noninfectious gastroenteritis (1 source) Gastroenteritis; 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: [Noninfective gastroenteritis and colitis, unspecified] Episodic Nonmalignant breast conditions (5 sources) Red breast; 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: [Lump in left breast] Onset: 8 12-13-2017 Episodic Nutritional deficiencies (20 sources) Cobalamin deficiency; 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: [Deficiency of other specified B group vitamins] Onset: 7 08-09-2018 Episodic Other aftercare (4 sources) 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; 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: [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] Onset: 5 Episodic Other and unspecified benign neoplasm (4 sources) Hemangioma of liver; 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: [Hemangioma of intra-abdominal structures] Onset: 8 11-30-2017 Episodic Other and unspecified benign neoplasm (2 sources) Melanocytic nevi, unspecified; 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: [Melanocytic nevi, unspecified] Onset: 3 Episodic Other circulatory disease (20 sources) Elevated blood-pressure reading without diagnosis of hypertension; 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: [Elevated blood-pressure reading, without diagnosis of hypertension] Onset: 9 Resolved: 9 01-02-2019 Episodic Other circulatory disease (5 sources) Elevated blood pressure; 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: [Elevated blood-pressure reading, without diagnosis of hypertension] Onset: 7 Resolved: 8 11-30-2017 Episodic Other connective tissue disease (20 sources) Trigger thumb of right hand; 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: [Trigger thumb, right thumb] Onset: 1 Resolved: 1 Episodic Other connective tissue disease (4 sources) Trigger finger; 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: [Trigger finger, unspecified finger] Onset: 0 08-19-2020 Episodic Other connective tissue disease (4 sources) Pain in both feet; 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: [Pain in right foot] Onset: 7 Resolved: 8 11-30-2017 Episodic Other connective tissue disease (20 sources) Plantar fasciitis; 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: [Plantar fascial fibromatosis] Onset: 3 10-03-2023 Episodic Other ear and sense organ disorders (2 sources) Tinnitus, bilateral; 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: [Tinnitus, bilateral] Onset: 5 Episodic Other ear and sense organ disorders (2 sources) Tinnitus, right ear; 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: [Tinnitus, right ear] Onset: 5 Episodic Other gastrointestinal disorders (20 sources) Diarrhea; 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: [Diarrhea, unspecified] Onset: 2 Episodic Other infections; including parasitic (4 sources) History of herpes zoster; 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: [Personal history of other infectious and parasitic diseases] Onset: 7 10-31-2017 Episodic Other liver diseases (4 sources) Liver mass; 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: [Hepatomegaly, not elsewhere classified] Onset: 7 11-22-2017 Episodic Other lower respiratory disease (2 sources) Rib pain; 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: [Pleurodynia] Episodic Other lower respiratory disease (4 sources) Snoring; 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: [Snoring] Onset: 7 10-31-2017 Episodic Other lower respiratory disease (12 sources) Nodule of lung; 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: [Solitary pulmonary nodule] Onset: 8 Resolved: 8 11-30-2017 Episodic Other non-traumatic joint disorders (20 sources) Pain in elbow; 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: [Pain in right elbow] Onset: 3 03-24-2023 Episodic Other screening for suspected conditions (not mental disorders or infectious disease) (20 sources) Viral screening status; 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: [Mammography abnormal] Onset: 7 11-04-2017 Episodic Comment on above: Patient is 65-year-o ld female who is referred for second opinion related to concern for primary hyperparathyroidism. She has had extensive workup and was even pending parathyroidectomy with another surgeon when she sought second opinion. In my review of her history and workup I have several concerns related to her diagnosis as it presently stands. Unfortunately her vitamin D has been chronically low and this was the case when her calcium and parathyroid hormone were drawn. I shared with her that diagnosis of primary hyperparathyroidism is made at the biochemical level and relies on and interpretation of her PTH and calcium only once the vitamin D level is confirmed as normal. Thus I discussed my interested in repeating her laboratories now that she has been supplemented on vitamin D, but remain concerned she may still be low and require further supplementation. I then went on to describe the NIH guidelines for asymptomatic hyperparathyroidism and shared that she does not meet this criteria based on her workup to date, but I would like to revisit her bone densitometry as she suggests there may have been some indication of demineralization and believe she should be assessed for hypercalciuria with a 24-hour urine study. I stated it was my preference to understand whether or not she meets criteria for surgical parathyroidectomy based on these answers. I also shared my belief that she may still stand to derive some benefit from parathyroidectomy even if she falls out from these criteria particularly with her reporting fatigue and her history of hypertension with the risk for hastened atherosclerosis with hyperparathyroidism. I stated that there would be no way to prognosticate preoperatively and this must be counterbalanced with the risks of surgery. Patient and her confirmed understanding of the conversation and expressed their appreciation. They will present now for updated lab testing and we will await the results of her DEXA scan planned for just over a month from now. I will plan to follow-up with her to review all of these results at a subsequent visit. Status post retestin g with persistently low level. Patient has undergone supplementation. Will retest to determine if her vitamin D level is now repleted. Stressed that this needs to be normal before proceeding with surgical intervention. Patient is 65-year-o ld female who is referred for second opinion related to concern for primary hyperparathyroidism. She has had extensive workup and was even pending parathyroidectomy with another surgeon when she sought second opinion. In my review of her history and workup I have several concerns related to her diagnosis as it presently stands. Unfortunately her vitamin D has been chronically low and this was the case when her calcium and parathyroid hormone were drawn. I shared with her that diagnosis of primary hyperparathyroidism is made at the biochemical level and relies on and interpretation of her PTH and calcium only once the vitamin D level is confirmed as normal. Thus I discussed my interested in repeating her laboratories now that she has been supplemented on vitamin D, but remain concerned she may still be low and require further supplementation. I then went on to describe the NIH guidelines for asymptomatic hyperparathyroidism and shared that she does not meet this criteria based on her workup to date, but I would like to revisit her bone densitometry as she suggests there may have been some indication of demineralization and believe she should be assessed for hypercalciuria with a 24-hour urine study. I stated it was my preference to understand whether or not she meets criteria for surgical parathyroidectomy based on these answers. I also shared my belief that she may still stand to derive some benefit from parathyroidectomy even if she falls out from these criteria particularly with her reporting fatigue and her history of hypertension with the risk for hastened atherosclerosis with hyperparathyroidism. I stated that there would be no way to prognosticate preoperatively and this must be counterbalanced with the risks of surgery. Patient and her confirmed understanding of the conversation and expressed their appreciation. They will present now for updated lab testing and we will await the results of her DEXA scan planned for just over a month from now. I will plan to follow-up with her to review all of these results at a subsequent visit.Update 09/12/2025:Reviewed results with patient today in clinic. Repeat laboratory testing showed persistent vitamin D deficiency but she has supplemented as directed and is pending a recheck. I stressed that vitamin D levels would need to be within normal range before proceeding with any operation. Additionally, I discussed her DEXA imaging which showed normal bone mineral density and her 24-hour urine calcium which was abnormal and high at 390.4 mg per 24 hours. I explained that with these results we technically did not reach threshold for surgical indications and therefore offered continued surveillance of the disease process versus proceeding with the information we now have. She shares that her leaning is to proceed with surgery. I suggested that a preemptive approach may be prudent and more reasonable given her co localization with ultrasound and sestamibi. I explained that this co localization and her laboratory values should reflect a probable single adenoma as the causative agent for her primary hyperparathyroidism. I also explained how this means it is reasonable to proceed with a minimally invasive parathyroidectomy with intraoperative PTH monitoring. Hand-drawn schematic's were then used to explain the details of the operation including PTH monitoring with intraoperative draws from the ipsilateral internal jugular vein. I explained the risks of the procedure to include hypoparathyroidism and recurrent laryngeal nerve injury. I expounded upon these risks in light of patient's minimal symptoms/indications to share that I would have a hard time recommending proceeding all the way to a subtotal parathyroidectomy if that is what our intraoperative findings dictated given the risk for hypoparathyroidism as I do not believe the risk for hypoparathyroidism would be justified by the absence of these indications. Patient confirmed understanding. She wishes to proceed with the operation as outlined but understands the importance of normalizing her vitamin D level before proceeding. Lastly I did use bedside ultrasound to localize the hypoechoic lesion in her right neck and believe this could be used to have the operation for incision planning. Other skin disorders (2 sources) Actinic keratosis; 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: [Actinic keratosis] Onset: 3 05-01-2024 Episodic Other skin disorders (1 source) Actinic keratosis; 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: [Actinic keratosis] Onset: 3 Episodic Other skin disorders (2 sources) Other melanin hyperpigmentation; 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: [Other melanin hyperpigmentation] Onset: 3 Episodic Other skin disorders (2 sources) Other seborrheic keratosis; 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: [Other seborrheic keratosis] Onset: 3 Episodic Residual codes; unclassified (4 sources) FH: Cardiovascular disease; 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: [Family history of ischemic heart disease and other diseases of the circulatory system] Onset: 7 10-31-2017 Episodic Residual codes; unclassified (8 sources) Family history of aneurysm of abdominal aorta; 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: [Family history of ischemic heart disease and other diseases of the circulatory system] Onset: 7 Resolved: 7 10-31-2017 Episodic Residual codes; unclassified (4 sources) Insomnia; 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: [Insomnia, unspecified] Onset: 7 Resolved: 8 05-19-2018 Episodic Residual codes; unclassified (4 sources) Family history of cardiac disorder; 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: [Family history of ischemic heart disease and other diseases of the circulatory system] Onset: 7 Resolved: 7 10-31-2017 Episodic Residual codes; unclassified (4 sources) Peripheral edema; 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: [Edema, unspecified] Onset: 8 Resolved: 8 02-15-2018 Episodic Residual codes; unclassified (4 sources) Asymptomatic menopausal state; 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: [Asymptomatic menopausal state] Onset: 5 Episodic Unclassified (7 sources) Patient encounter status; 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: [Breast cancer screening] Onset: 9 09-21-2019 Unclassified (1 source) Acute cough; 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: [Acute cough] Onset: 3 Results Test Name Value Interpretation Reference Range Facility MR/Inocencio 10-02-2025 MR/AMOL [facility] Medical Records Department [address] [place] [address] PAT - Anesthesia 10/02/25 1017 MR#: [id number] Acct: [id number] Name: LYN HARRY Rep #: [id number] : 1960 65 From: Gaudencio Sheridan MD PCP: ELO OGDEN MD Status:PRE [facility] Y Race: C [place] [facility] Pre-Assessment Diagnosis/Proposed Procedure Planned Operative Procedure(s): (N/A) Parathyroidectomy w/IONM Anesthesia History 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 When Was Last Pacemaker Check QUESTION #4 FULL TEXT: You/Your Family Experience fever (hyperthermia) with Anesthesia Last Oral Intake Last Oral intake: Last Oral Intake NPO since Meds taken in AM with sips of water? Meds patient instructed to take am of surgery PONV PONV - double bottom driver: PONV - double bottom driver Female Yes 09/30/25 11:04 HX of Motion Sickness Yes 09/30/25 11:04 HX of N/V After Surgery Yes 09/30/25 11:04 Non-Smoker Yes 09/30/25 11:04 Duration of Surgery greater Yes 09/30/25 11:04 than 60 minutes Number of Risk Factors 5 09/30/25 11:04 PONV Score Severe Risk 09/30/25 11:04 Height Weight Height Weight: Anesthesia: Height Weight Height 5 ft 4 in 09/12/25 14:25 Respiratory Assessment Respiratory Assessment - double bottom driver: Respiratory Tract Infection Hx - double bottom driver Hx Respiratory Tract Infection No 09/30/25 11:04 STOP Sleep Apnea STOP Sleep Apnea - double bottom driver: STOP Sleep Apnea - double bottom driver Hx Hypertension Yes: controlled with med 09/30/25 11:04 Hx Sleep Apnea No 09/30/25 11:04 CPAP BIPAP Do you snore loudly (louder Yes 09/30/25 11:04 than talking or can be heard Do you often feel tired/ No 09/30/25 11:04 fatigued/ sleepy during daytime? Has anyone observed you stop No 09/30/25 11:04 breathing during sleep? STOP Results Positive 09/30/25 11:04 QUESTION #5 FULL TEXT : Do you snore loudly (louder than talking or can be heard through closed doors)? 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 Specify any problems Hx of Preganancy in last 3 N/A 09/30/25 11:04 Months Nurse Filling Out Transfusion NBUCHER 09/30/25 11:04 Questions: Date: 09/30/25 09/30/25 11:04 Time: 11:09/30/25 11:04 Patient unable to answer at this time (ie. confused, unrespo /Reproduction History /Reproductive History - double bottom driver: /Reproductive Hx- double bottom driver Hx Now No 09/30/25 11:04 Gestational Age (in weeks): EDC: Hx Hx Para Hx Section SAB No 09/30/25 11:04 [facility] Medical History (Updated 09/30/25 @ 11:17 by Sharmin Doe) Wears glasses Cancer High cholesterol PONV (postoperative nausea and vomiting) History of IBS Non-smoker Leg cramps Parathyroid adenoma Low vitamin D level Serum calcium elevated Elevated parathyroid hormone Fatigue Acid reflux HTN (hypertension) Diabetes Breast cancer Home Medications ???Medication ???Instructions ???Recorded ???Last Taken ???Type atorvastatin 40 mg tablet (Lipitor) 40 mg PO QDAY 07/26/25 Unknown History famotidine 20 mg tablet 20 mg PO BID 07/26/25 Unknown Hist ory lisinopril 10 mg tablet 10 mg PO QDAY 07/26/25 Unknown His tory metformin 500 mg tablet,extended 500 mg PO BID 07/26/25 Unknown His tory release 24 hr cetirizine 10 mg tablet (24Hour 10 mg PO DAILY PRN allergy symptom s 09/30/25 Unknown History Allergy) cholecalciferol (vitamin D3) 1,250 1,250 mcg PO QWEEK 09/30/25 Unkn own History mcg (50,000 un (more content not included)... Normal [facility] 12 Lead EKGon 10-01-2025 12 Lead EKG [facility] Cardiovascular Services [address] [place] [address] 12 Lead EKG 10/01/25 1051 MR#: [id number] Acct: [id number] Name: LYN HARRY Rep #: [id number] : 1960 65 From: Krishna Diaz MD Attending Dr: Dr. Krishna Caraballo MD Status: PRE [facility] [place] Ordering Dr: Krishna Caraballo MD Date: 10/01/25 Location: [facility] Sex: F C Admitted: Test Reason : PREOP Blood Pressure : */* mmHG Vent. Rate : 68 BPM Atrial Rate : 68 BPM P-R Int : 162 ms QRS Dur : 80 ms QT Int : 376 ms P-R-T Axes : 62 68 0 degrees QTcB Int : 399 ms Normal sinus rhythm Low voltage QRS Nonspecific ST and T wave abnormality Abnormal ECG Confirmed by Krishna Diaz ([id number]), staff editor KAMINI WEBER ([id number]) on 10/02/2025 7:16:35 AM Referred By: Krishna Caraballo Confirmed By: Krishna Diaz 10/02/25 0716 Date Krishna Diaz MD CC: ELO OGDEN MD; Dr. Krishna Caraballo MD Signed Normal [facility] Basic Metabolic Profile (BMP )on 10-01-2025 BUN/CRE 13.8 RATIO Normal 10-20 [facility] Comment on above: Performed By: #### L 500.2500, L575.9932 #### [facility] [address] [place], [address] Calcium [Mass/Vol] 10.5 mg/dL Normal 7.6-11.0 [facility] Comment on above: Performed By: #### L 500.2500, L501.9985 #### [facility] [address] [place], [address] Chloride [Moles/Vol] 105 mmol/L Normal 98-108 [facility] Comment on above: Performed By: #### L 500.2500, L501.9985 #### [facility] [address] [place], [address] CO2 [Moles/Vol] 26.5 mmol/L Normal 21.0-32.0 [facility] Comment on above: Performed By: #### L 500.2500, L501.9985 #### [facility] [address] [place], [address] Creatinine [Mass/Vol] 0.85 mg/dL Normal 0.70-1.20 [facility] Comment on above: Performed By: #### L 500.2500, L501.9985 #### [facility] [address] [place], [address] GAP 8 Normal 5-15 [facility] Comment on above: Performed By: #### L 500.2500, L501.9985 #### [facility] [address] [place], [address] GFR/1.73 sq M.predicted among non-blacks MDRD (S/P/Bld) [Vol rate/Area] 77 mL/min/{1.73_m2} Normal >60 [facility] Comment on above: Result Comment: mL/m in/1.73m2 CKD-EPI Creatinine Equation (2020) Performed By: #### L 500.2500, L501.9985 #### [facility] [address] [place], [address] Glucose [Mass/Vol] 212 mg/dL High 70-99 [facility] Comment on above: Performed By: #### L 500.2500, L501.9985 #### [facility] [address] [place], [address] Potassium [Moles/Vol] 4.2 mmol/L Normal 3.3-5.1 [facility] Comment on above: Performed By: #### L 500.2500, L501.9985 #### [facility] [address] [place], [address] Sodium [Moles/Vol] 139 mmol/L Normal 133-145 [facility] Comment on above: Performed By: #### L 500.2500, L501.9985 #### [facility] [address] [place], [address] Urea nitrogen [Mass/Vol] 12 mg/dL Normal 4-19 [facility] Comment on above: Performed By: #### L 500.2500, L501.9985 #### [facility] [address] [place], [address] Hemoglobin A1con 10-01-2025 HbA1c (Bld) [Mass fraction] 7.4 % High <=5.6 [facility] Comment on above: Result Comment: Norm al < 5.7 % Prediabetic 5.7 - 6.4 % Diabetic >or= 6.5 % Please note range changes. Performed By: #### L 500.2500, L501.9985 #### [facility] [address] [place], [address] L501.0895on 09-12-2025 Calcium [Mass/Vol] 11.0 mg/dL Normal 7.6-11.0 [facility] Comment on above: Performed By: #### L 509.1000, L501.0895, L506.1001 #### [facility] [address] [place], [address] PTHINon 09-12-2025 PTH 114 pg/mL High 11-61 [facility] Comment on above: Performed By: #### L 509.1000, L501.0895, L506.1001 #### [facility] [address] [place], [address] Serum or plasma calcium lala urement (mass/volume)Ordered By: Krishna Caraballo on 09-12-2025 Calcium [Mass/Vol] 11.0 mg/dL 7.6-11.0 [facility] Surgery Visit Reporton 09-12 Surgery Visit Report [facility] [address] [place] [address] OFFICE VISIT Date of Service: 09/12/25 MR#: [id number] Acct: [id number] Name: LYN HARRY Rep #: [id number] : 1960 Provider: Dr. Krishna marx MD Age/Sex: 65/F Location: [facility] Status: Signed Intake Vital Signs 07/26/25 14:41 09/12/25 14:25 Height 5 ft 4 in 5 ft 4 in Weight: 206 lb 206 lb BMI 35.3 35.3 BP 124/80 H 161/90 H Blood Pressure Location Rt brachial Rt brachial Position Sitting Sitting Respiration 16 16 Intake Visit Reasons: LAB RESULTS, DISCUSS FURTHER STEPS Chief Complaint: Discuss testing Coating Manager Required: No Is patient in pain?: No Allergies Penicillins (PCN) Allergy (Mild, Verified 09/12/25 14:26) Hives Medications ???Medication ???Instructions ???Recorded ???Confirmed ???Type atorvastatin 40 mg tablet (Lipitor) 40 mg PO QDAY 07/26/25 09/12/25 History famotidine 20 mg tablet 20 mg PO BID 07/26/25 09/12/25 His tory lisinopril 10 mg tablet 10 mg PO QDAY 07/26/25 09/12/25 Hi story metformin 500 mg tablet,extended 500 mg PO BID 07/26/25 09/12/25 Hi story release 24 hr Have you fallen in the past year?: No PFSH Medical History Parathyroid adenoma Low vitamin D level Serum calcium elevated Elevated parathyroid hormone Fatigue Acid reflux HTN (hypertension) Diabetes Breast cancer Surgical History S/P lumpectomy, right breast S/P tubal ligation Hx of exploratory laparotomy S/P D C (status post dilation and curettage) S/P section S/P laparoscopic cholecystectomy S/P appendectomy Social History Smoking Status: Never smoker alcohol intake: never HPI HPI HPI: Patient is a 65-year old female who presents for a second opinion related to a diagnosis of hyperparathyroidism. They are referred from Dr. Hinton. This represents her second visit after initial consultation visit 07/26/2025. In the interim she completed 24-hour urine calcium assay as well as repeat DEXA imaging. Labs were also repeated and she was found to be vitamin D deficient so she was started on more aggressive supplementation. Outside of the above she denies any significant health changes. Below is recapitulated from patient's initial consultation visit for ease review: Patient is a 65-year old female who presents for a second opinion related to a diagnosis of hyperparathyroidism. They are referred from Dr. Hinton. Patient states she presented to a survivorship clinic after a diagnosis of breast cancer earlier this summer and answered that she was feeling some fatigue. It was then her laboratories were tested and she was found to have some hypercalcemia and some vitamin D deficiency. Parathyroid hormone also was tested and found to be elevated. Since that time she completed parathyroid ultrasound, sestamibi imaging and even met with a surgeon. She shares that she was scheduled for surgery yesterday, however, was unconvinced of her need for the operation and did not completely mesh with the surgeon she met with. Patient has a history of 2 prior bone density tests. She shares the first test showed some bone loss and between the this result and her use of Arimidex for her breast cancer she was placed on Prolia. She notes that the second DEXA scan obtained 2 years ago showed some improvement in this bone loss but she has since been discontinued of a Prolia and is pending a follow-up DEXA scan in August. Unfortunately none of these results are immediately available. Patient has no history of pathologic fractures or bony fractures otherwise. Patient has no history of kidney stones, but does relate an experience over period of about a week where she felt self-limited flank pain on bilateral flanks. Patient has no history of frequent dental caries or chipped teeth. Patient has no history of brittle fingernails. Patient does have a history of GERD for which she takes famotidine, but notes it has been somewhat worse of late despite rather consistent dietary modification. Patient also has a history of hypertension, but her blood pressure control has been stable/adequate. Additional symptoms include: Pertinent positives: Fatigue (as noted above), pertinent negatives: Denial of difficulty concentrating, denial of depression. Patient has a history of prior radiation exposure. Patient has no family history of other endocrinopathies Patient [does/does not] have a diet high in dairy. Patient's current labs are calcium: 10.3 mg/dL 05/20/2025 (range of 8.4-10.2), Vitamin D: 16 ng/mL 05/20/2025 , Ionized calcium: [Value]mg/dL [date], PTH: 125 pg/mL 05/20/2025 (range 12-65) (more content not included)... Normal [facility] Vitamin D,25 Hydroxyon 09-12 Vitamin D 25-OH 36.7 ng/mL Normal 30-100 [facility] Comment on above: Result Comment: Gin min D Status Deficiency: <20 ng/mL (50nmol/L) Insufficiency: 20-30 ng/mL (50-75 nmol/L) Sufficiency: 30-100 ng/mL (75-250 nmol/L) Toxicity: >100 ng/mL (>250 nmol/L) Performed By: #### L 509.1000, L501.0895, L506.1001 #### [facility] [address] [place], [address] Oncology Geneticson 09-04-20 25 NEGATIVE: Genetic testing for hereditary cancer risk did not identify any pathogenic or likely pathogenic variants that are associated with a hereditary increased risk for cancer. [facility] XR BONE DENSITY DXAon 2024 XR BONE DENSITY DXA EXAMINATION: XR BONE DENSITY DXA 09/03/2025 11:49 am HISTORY: ORDERING SYSTEM PROVIDED HISTORY: Asymptomatic menopause, TECHNOLOGIST PROVIDED HISTORY: Illness/Other Reason for exam: osteoporosis Encounter Type: Unknown Additional signs and symptoms: postmenopausal ORDERING SYSTEM PROVIDED DIAGNOSIS CODES: Z78.0 Asymptomatic menopause Z79.811 Aromatase inhibitor use Z85.3 History of breast cancer COMPARISON: 09/01/2023. TECHNIQUE: Standard DEXA scanning was performed of the lumbar spine, left forearm and the left hip. Classification based on WHO criteria. FINDINGS: The bone mineral density of the lumbar spine from L1 to L4 is 1.006 g/cm2 corresponding to a T-score of -0.4. This represents normal bone mineral density. This suggests a decrease in density compared to prior. The bone mineral density of the femoral neck is 0.768 g/cm2 corresponding to a T-score of -0.7. This represents normal bone mineral density. The bone mineral density of the total hip is 1.121 g/cm2 corresponding to a T-score of 1.5. This represents normal bone mineral density. This suggests an increase in density compared to prior. The bone mineral density of the one-third forearm is 0.755 g/cm2 corresponding to a T-score of 1.0. This represents normal bone mineral density. This suggests no significant change from prior. IMPRESSION: Normal bone mineral density. Pharmacologic treatment recommendations: No uniform recommendation applies to all patients. Management plans must be individualized. Consider initiating pharmacologic treatment in postmenopausal women and men > or equal to 50 years of age who have the following: Primary fracture prevention: - T-score < or equal to - 2.5 at the femoral neck, total hip, lumbar spine, 33% radius (some uncertainty with existing data) by DXA. - low bone mass (osteopenia: T-score between - 1.0 and - 2.5) at the femoral neck or total hip by DXA with a 10-year hip fracture risk > or equal to 3% or a 10-year major osteoporosis-related fracture risk > or equal to 20% (i.e., clinical vertebral, hip, forearm, or proximal humerus) based on the US-adapted FRAX?? model. Secondary fracture prevention: - fracture of the hip or vertebra regardless of BMD. - fracture of proximal humerus, pelvis, or distal forearm in persons with low bone mass (osteopenia: T-score between - 1.0 and - 2.5). The decision to treat should be individualized in persons with a fracture of the proximal humerus, pelvis, or distal forearm who do not have osteopenia or low BMD. Jeremiah Malone, Ricky Humphrey, Maikel Nunez. et al. The clinician's guide to prevention and treatment of osteoporosis. Osteoporos Int 33, 6806-2274 (2021). Erratum in: Osteoporos Int 33, 5133 (2021) [facility] Workstation ID: [id number] Dictated by: JAYLIN PLUNKETT on TueSep 04, 2025 7:54:39 AM EDT Transcribed by: ELIZABETH RODRIGEZ on TueSep 04, 2025 8:10:11 AM EDT Finalized by: JAYLIN PLUNKETT on Wed Sep 04, 2025 9:01:55 AM EDT Normal [facility] Comment on above: Order Comment: Injur y/Trauma or Illness?:Illness/Other How long have you had these symptoms (acute/chronic)?:Unknown Reason for exam?:osteoporosis Type of Exam?:Unknown Additional signs and symptoms?:postmenapausal 24 hour urine calcium measur ement (mass/time)Ordered By: Krishna Caraballo on 08-02-2025 Calcium (24H U) [Mass/Time] 390.4 mg/24 HR High 100.0-300.0 [facility] Calcium, Urine 24HRon 2024 24HR UR Calcium 390.4 mg/24 HR High 100.0-300.0 [facility] Comment on above: Performed By: #### L 500.7000 #### [facility] [address] [place], [place], [address] Calcium UR pH 2 Normal [facility] Comment on above: Performed By: #### L 500.7000 #### [facility] [address] [place], [place], [address] RANDOM UR TV 1600.0 ML Normal [facility] Comment on above: Performed By: #### L 500.7000 #### [facility] [address] [facility] [place], [place], [address] Laboratory - Chemistry and C hemistry - challengeOrdered By: Krishna Caraballo on 08-02-2025 pH (U) 2 [pH] [facility] Total urine volume measureme ntOrdered By: Krishna Caraballo on 08-02-2025 Specimen volume (U) 1600.0 ML [facility] Urine calcium measurement (m ass/volume)Ordered By: Krishna Caraballo on 08-02-2025 Calcium (U) [Mass/Vol] 24.4 mg/dL Not Estab. [facility] L501.0895on 07-26-2025 Calcium [Mass/Vol] 10.3 mg/dL Normal 7.6-11.0 [facility] Comment on above: Performed By: #### L 501.0895, L509.1000, L506.1001 ####[facility] [address] [place], [address] PTHINon 07-26-2025 PTH 145 pg/mL High 11-61 [facility] Comment on above: Performed By: #### L 501.0895, L509.1000, L506.1001 #### [facility] [address] [place], [address] Serum or plasma calcium lala urement (mass/volume)Ordered By: Krishna Caraballo on 07-26-2025 Calcium [Mass/Vol] 10.3 mg/dL 7.6-11.0 [facility] Surgery Visit Reporton 07-26 Surgery Visit Report [facility] [address] [place] [address] OFFICE VISIT Date of Service: 07/26/25 MR#: [id number] Acct: [id number] Name: LYN HARRY Rep #: [id number] : 1960 Provider: Dr. Krishna marx MD Age/Sex: 65/F Location: [facility] Status: Signed Intake Vital Signs 07/26/25 14:41 Height 5 ft 4 in Weight: 206 lb BMI 35.3 BP 124/80 H Blood Pressure Location Rt brachial Position Sitting Respiration 16 Intake Visit Reasons: PARATHYROID 2ND OPINION Chief Complaint: parathyroid Coating Manager Required: No Is patient in pain?: No Allergies Penicillins (PCN) Allergy (Mild, Verified 07/26/25 14:42) Hives Medications ???Medication ???Instructions ???Recorded ???Confirmed ???Type atorvastatin 40 mg tablet (Lipitor) 40 mg PO QDAY 07/26/25 07/26/25 History cholecalciferol (vitamin D3) 25 25 mcg PO QDAY 07/26/25 07/26/25 H istory mcg (1,000 unit) capsule famotidine 20 mg tablet 20 mg PO BID 07/26/25 07/26/25 His tory lisinopril 10 mg tablet 10 mg PO QDAY 07/26/25 07/26/25 Hi story metformin 500 mg tablet,extended 500 mg PO BID 07/26/25 07/26/25 Hi story release 24 hr PFSH Medical History (Updated 07/26/25 @ 15:[address] Krishna Caraballo MD) Parathyroid adenoma Low vitamin D level Serum calcium elevated Elevated parathyroid hormone Fatigue Acid reflux HTN (hypertension) Diabetes Breast cancer Surgical History (Updated 07/26/25 @ 15:17 by Valery Bello) S/P lumpectomy, right breast S/P tubal ligation Hx of exploratory laparotomy S/P D C (status post dilation and curettage) S/P section S/P laparoscopic cholecystectomy S/P appendectomy Social History (Updated 07/26/25 @ 14:41 by Valery Bello) Smoking Status: Never smoker alcohol intake: never HPI HPI HPI: Patient is a 65-year old female who presents for a second opinion related to a diagnosis of hyperparathyroidism. They are referred from Dr. Hinton. Patient states she presented to a [facility] after a diagnosis of breast cancer earlier this summer and answered that she was feeling some fatigue. It was then her laboratories were tested and she was found to have some hypercalcemia and some vitamin D deficiency. Parathyroid hormone also was tested and found to be elevated. Since that time she completed parathyroid ultrasound, sestamibi imaging and even met with a surgeon. She shares that she was scheduled for surgery yesterday, however, was unconvinced of her need for the operation and did not completely mesh with the surgeon she met with. Patient has a history of 2 prior bone density tests. She shares the first test showed some bone loss and between the this result and her use of Arimidex for her breast cancer she was placed on Prolia. She notes that the second DEXA scan obtained 2 years ago showed some improvement in this bone loss but she has since been discontinued of a Prolia and is pending a follow-up DEXA scan in August. Unfortunately none of these results are immediately available. Patient has no history of pathologic fractures or bony fractures otherwise. Patient has no history of kidney stones, but does relate an experience over period of about a week where she felt self-limited flank pain on bilateral flanks. Patient has no history of frequent dental caries or chipped teeth. Patient has no history of brittle fingernails. Patient does have a history of GERD for which she takes famotidine, but notes it has been somewhat worse of late despite rather consistent dietary modification. Patient also has a history of hypertension, but her blood pressure control has been stable/adequate. Additional symptoms include: Pertinent positives: Fatigue (as noted above), pertinent negatives: Denial of difficulty concentrating, denial of depression. Patient has a history of prior radiation exposure. Patient has no family history of other endocrinopathies Patient [does/does not] have a diet high in dairy. Patient's current labs are calcium: 10.3 mg/dL 05/20/2025 (range of 8.4-10.2), Vitamin D: 16 ng/mL 05/20/2025 , Ionized calcium: [Value]mg/dL [date], PTH: 125 pg/mL 05/20/2025 (range 12-65) Current medications include: Vitamin D3 25 mcg daily. Imaging has been done parathyroid ultrasound on 05/30/2025 and showed a "1.7 cm hypoechoic nodule identified in the right parathyroid bed, suspicious for parathyroid adenoma". Additionally sestamibi scan was performed with SPECT-CT showing parathyroid adenoma in the right thyroid bed posterior to the mid right thyroid lobe where a nodule is present measuring 7.4 mm" Patient has had DEXA imaging (as above 2 years ago and is pending repeat study 09/03/2025). Patient has not had renal imaging. ROS General General: Yes fatigue and br (more content not included)... Normal [facility] Vitamin D,25 Hydroxyon 07-26 Vitamin D 25-OH 19.1 ng/mL Low 30-100 [facility] Comment on above: Result Comment: Gin min D Status Deficiency: <20 ng/mL (50nmol/L) Insufficiency: 20-30 ng/mL (50-75 nmol/L) Sufficiency: 30-100 ng/mL (75-250 nmol/L) Toxicity: >100 ng/mL (>250 nmol/L) Performed By: #### L 501.0895, L509.1000, L506.1001 ####[facility] [id number] [place], [address] NM PARATHYROID PLANAR SPECT CTon 06-06-2025 NM PAR[address]ROID PLANAR SPECT CT EXAMINATION: NUCLEAR MEDICINE PARATHYROID SCINTIGRAPHY WITH SPECT/CT. 06/06/2025 TECHNIQUE: After 19 Tc99m sestamibi was administered intravenously, immediate planar images are obtained of the neck. Delayed images of the neck are obtained in the same positions at 90 mins. SPECT images are obtained following the immediate images. SPECT/CT images of the neck were obtained following the delayed images. CT images were obtained for attenuation and localization purposes only. Multiplanar reformatted fused images were used for interpretation. COMPARISION: None. HISTORY: ORDERING SYSTEM PROVIDED HISTORY: E21.3; Hyperparathyroidism (HCC); I10; TECHNOLOGIST PROVIDED HISTORY: Illness/Other Acuity: Unknown Reason for Exam: Hyperparathyroidism, Hyperparathyroidism Type of Encounter: Subsequent/Follow-up Additional signs and symptoms: N ORDERING SYSTEM PROVIDED DIAGNOSIS CODES: E21.3 Hyperparathyroidism (HCC) FINDINGS: Immediate images: Decreased radiotracer uptake is seen in the upper pole the left thyroid lobe with homogeneous radiotracer uptake in the remainder of the thyroid gland. Delayed images: Radiotracer retention is seen in the region of the right mid thyroid bed with significant partial washout of the remainder of the thyroid gland. Physiologic activity is present in the salivary glands and heart. SPECT/CT: Focal area of radiotracer uptake is seen in nodule posterior to the mid right thyroid lobe seen on the axial slice [address] images and corroborated on the SPECT CT study. INCIDENTAL CT FINDINGS: No abnormal radiotracer uptake is seen in the mediastinum. IMPRESSION: Parathyroid adenoma in the right thyroid bed posterior to the mid right thyroid lobe where a nodule is present measuring 7.4 mm.. Workstation ID: [id number] Dictated by: MARGIE RUSS on TueJun 07, 2025 10:45:57 AM EDT Transcribed by: MARGIE RUSS on TueJun 07, 2025 10:45:57 AM EDT Finalized by: MARGIE RUSS on TueJun 07, 2025 10:45:57 AM EDT [facility] Comment on above: Order Comment: Injur y/Trauma or Illness?:Illness/Other How long have you had these symptoms (acute/chronic)?:Unknown Reason for exam?:Hyperparathyroidism, Hyperparathyroidism Type of Exam?:Subsequent/Follow-up Additional signs and symptoms?:N US PARATHYROID ONLYon 2024 US PARATHYROID ONLY EXAMINATION: US PARATHYROID ONLY HISTORY: ORDERING SYSTEM PROVIDED HISTORY: Hyperparathyroidism, TECHNOLOGIST PROVIDED HISTORY: Illness/Other Reason for exam: Hyperparathyroid nd hypercalcemia Cancer History: rt breast Surgery, RadiationHistory: surgery on rt breast Encounter Type: Initial Additional signs and symptoms: None ORDERING SYSTEM PROVIDED DIAGNOSIS CODES: E21.3 Hyperparathyroidism (HCC) COMPARISON: None. FINDINGS: Targeted ultrasound of the parathyroid bed. 1.7 x 0.9 x 1.5 cm hypoechoic nodule identified in the right mid parathyroid bed. Increased vascularity noted on color Doppler interrogation. No additional lesions identified in the parathyroid bed. Visualized thyroid gland appears homogeneous. IMPRESSION: 1.7 cm hypoechoic nodule identified in the right parathyroid bed, suspicious for parathyroid adenoma. HistoryFile Workstation ID: [id number] Dictated by: SHARRON LOVING on TueMay 30, 2025 4:21:57 PM EDT Transcribed by: LLOYD SARMIENTO on TueMay 30, 2025 4:58:40 PM EDT Finalized by: SHARRON LOVING on TueMay 30, 2025 9:18:19 PM EDT [facility] Comment on above: Order Comment: Injur y/Trauma or Illness?:Illness/Other How long have you had these symptoms (acute/chronic)?:Acute Reason for exam?:Hyperparathyroid nd hypercalcemia History of cancer?:rt breast Surgeries, chemotherapy, or radiation?:surgery on rt breast Type of Exam?:Initial Additional signs and symptoms?:None Parathyrin.intact and Calciu m panelon 05-21-2025 Calcium [Mass/Vol] 10.3 mg/dL High 8.4 - 10. 2 mg/dL [facility] Interpretation and review of laboratory results Abnormal [facility] Parathyrin.intact [Mass/Vol] 125 pg/mL High 12.0 - 65.0 pg/mL [facility] B12/FOLATEon 05-20-2025 Cobalamin (Vitamin B12) [Mass/Vol] 353 pg/mL Normal 232-1245 [facility] Comment on above: Performed By: #### 4 [id number] #### LAB [address] [place], [place] [address] Rolan Parisi M.D. [id number] FOLATE 9.7 ng/mL Normal 3.1-17.5 [facility] Comment on above: Result Comment: Defi cient <2.2 Borderline 2.2 - 3.0 Excessive >17.5 Performed By: #### 4 [id number] #### LAB [address] [place] [address] Rolan Parisi M.D. [id number] B12/Folateon 05-20-2025 Cobalamin (Vitamin B12) [Mass/Vol] 353 pg/mL 232 - 1245 pg/mL [facility] Folate [Mass/Vol] 9.7 ng/mL 3.1 - 17.5 ng/mL [facility] Comment on above: Deficient <2.2 Borderline 2.2 - 3.0 Excessive >17.5 Interpretation and review of laboratory results Normal [facility] CBC WITH AUTO DIFFERENTIALon 05-20-2025 AUTO NRBC 0.0 % Normal [facility] Comment on above: Performed By: #### L [id number] #### LAB [address] [place] [address] Rolan Parisi M.D. [id number] AUTO NRBC ABS COUNT 0.00 K/mcL Normal 0.00-0.00 [facility] Comment on above: Performed By: #### L [id number] #### LAB [address] [place] [address] Rolan Parisi M.D. [id number] BASOPHILS ABSOLUTE COUNT 0.04 K/mcL Normal 0.00-0.30 [facility] Comment on above: Performed By: #### L [id number] #### LAB [address] [place] [address] Rolan Parisi M.D. [id number] Basophils/100 WBC (Bld) 0.8 % Normal [facility] Comment on above: Performed By: #### L [id number] #### LAB [address] [place] [address] Rolan Parisi M.D. [id number] Eosinophils (Bld) [#/Vol] 0.17 10*3/uL Normal 0.00-0.50 [facility] Comment on above: Performed By: #### L [id number] #### LAB [address] [place] [address] Rolan Parisi M.D. [id number] Eosinophils/100 WBC (Bld) 3.5 % Normal [facility] Comment on above: Performed By: #### L [id number] #### LAB [address] [place] [address] Rolan Parisi M.D. [id number] Erythrocyte distribution width (RBC) [Ratio] 12.7 % Normal 11.6-14.8 [facility] Comment on above: Performed By: #### L [id number] #### LAB [address] [place] [address] Rolan Parisi M.D. [id number] Hematocrit (Bld) [Volume fraction] 41.2 % Normal 36.0-46.0 [facility] Comment on above: Performed By: #### L [id number] #### LAB [address] [place] [address] Rolan Parisi M.D. [id number] Hemoglobin (Bld) [Mass/Vol] 14.0 g/dL Normal 12.0-16.0 [facility] Comment on above: Performed By: #### L [id number] #### LAB [address] [place] [address] Rolan Parisi M.D. [id number] IG ABSOLUTE 0.01 K/mcL Normal 0.00-0.30 [facility] Comment on above: Performed By: #### L [id number] #### LAB [address] [place] [address] Rolan Parisi M.D. [id number] IG PERCENT 0.20 % Normal [facility] Comment on above: Result Comment: The IG parameter is the percentage of metamyelocytes, myelocytes and promyelocytes. An immature granulocyte count (IG) of 1% or more suggests the possibility of infection, an IG count of 3% is very likely related to an infection. Performed By: #### L [id number] #### LAB [address] [place] [address] Rolan Parisi M.D. [id number] Lymphocytes (Bld) [#/Vol] 1.60 10*3/uL Normal 0.90-4.00 [facility] Comment on above: Performed By: #### L [id number] #### LAB [address] [place] [address] Rolan Parisi M.D. [id number] Lymphocytes/100 WBC (Bld) 33.1 % Normal [facility] Comment on above: Performed By: #### L [id number] #### LAB [address] [place] [address] Rolan Parisi M.D. [id number] MCH (RBC) [Entitic mass] 31.1 pg Normal 26.0-34.0 [facility] Comment on above: Performed By: #### L [id number] #### LAB [address] [place] [address] Rolan Parisi M.D. [id number] MCV (RBC) [Entitic vol] 91.6 fL Normal 80.0-100.0 [facility] Comment on above: Performed By: #### L [id number] #### LAB [address] [place] [address] Rolan Parisi M.D. [id number] MEAN CORPUSCULAR HEMOGLOBIN CONC 34.0 g/dL Normal 31.0-37.0 [facility] Comment on above: Performed By: #### L [id number] #### LAB [address] [place] [address] Rolan Parisi M.D. [id number] Monocytes (Bld) [#/Vol] 0.41 10*3/uL Normal 0.30-0.90 [facility] Comment on above: Performed By: #### L [id number] #### LAB [address] [place] [address] Rolan Parisi M.D. [id number] Monocytes/100 WBC (Bld) 8.5 % Normal [facility] Comment on above: Performed By: #### L [id number] #### LAB [address] [place] [address] Rolan Parisi M.D. [id number] NEUTROPHILS ABSOLUTE COUNT 2.61 K/mcL Normal 1.70-7.00 [facility] Comment on above: Performed By: #### L [id number] #### LAB [address] [place] [address] Rolan Parisi M.D. [id number] Neutrophils/100 WBC (Bld) 53.9 % Normal [facility] Comment on above: Performed By: #### L [id number] #### LAB [address] [place] [address] Rolan Parisi M.D. [id number] Platelet mean volume (Bld) [Entitic vol] 11.3 fL Normal 9.4-12.4 [facility] Comment on above: Performed By: #### L [id number] #### [facility] [address] [place] [address] Rolan Parisi M.D. [id number] Platelets (Bld) [#/Vol] 190 10*3/uL Normal 150-400 [facility] Comment on above: Performed By: #### L [id number] #### LAB [address] [place] [address] Rolan Parisi M.D. [id number] RBC (Bld) [#/Vol] 4.50 10*6/uL Normal 4.00-5.20 [facility] Comment on above: Performed By: #### L [id number] #### [facility] LAB [address] [place] [address] Rolan Praisi M.D. [id number] WBC (Bld) [#/Vol] 4.84 10*3/uL Normal 4.50-11.00 [facility] Comment on above: Performed By: #### L [id number] #### LAB [address] [place] [address] Rolan Parisi M.D. [id number] COMPREHENSIVE METABOLIC PANE Patrick 05-20-2025 Albumin [Mass/Vol] 4.4 g/dL Normal 3.2-5.2 [facility] Comment on above: Order Comment: [facility] has implemented the eGFR calculation approach that does not have a coefficient for race that conforms to the NKF-ASN Task Force Recommendations. Performed By: #### 4 [id number] #### LAB [address] [place] [address] Rolan Parisi M.D. [id number] ALP [Catalytic activity/Vol] 98 U/L Normal 40-150 [facility] Comment on above: Order Comment: [facility] has implemented the eGFR calculation approach that does not have a coefficient for race that conforms to the NKF-ASN Task Force Recommendations. Performed By: #### 4 [id number] #### LAB [address] [place] [address] Rolan Parisi M.D. [id number] ALT [Catalytic activity/Vol] 37 U/L High 0-35 U/L [facility] Comment on above: Order Comment: [facility] has implemented the eGFR calculation approach that does not have a coefficient for race that conforms to the NKF-ASN Task Force Recommendations. Performed By: #### 4 [id number] #### LAB [address] [place] [address] Rolan Parisi M.D. [id number] Anion gap [Moles/Vol] 13 mmol/L Normal 10-20 [facility] Comment on above: Order Comment: [facility] has implemented the eGFR calculation approach that does not have a coefficient for race that conforms to the NKF-ASN Task Force Recommendations. Performed By: #### 4 [id number] #### LAB [address] [place] [address] Rolan Parisi M.D. [id number] AST [Catalytic activity/Vol] 26 U/L Normal 0-35 U/L [facility] Comment on above: Order Comment: [facility] has implemented the eGFR calculation approach that does not have a coefficient for race that conforms to the NKF-ASN Task Force Recommendations. Performed By: #### 4 [id number] #### LAB [address] [place] [address] Rolan Parisi M.D. [id number] Bilirubin [Mass/Vol] 0.6 mg/dL Normal 0.0-1.3 [facility] Comment on above: Order Comment: [facility] has implemented the eGFR calculation approach that does not have a coefficient for race that conforms to the NKF-ASN Task Force Recommendations. Performed By: #### 4 [id number] #### LAB [address] [place] [address] Rolan Parisi M.D. [id number] Calcium [Mass/Vol] 10.3 mg/dL High 8.4-10.2 [facility] Comment on above: Order Comment: [facility] has implemented the eGFR calculation approach that does not have a coefficient for race that conforms to the NKF-ASN Task Force Recommendations. Performed By: #### 4 [id number] #### LAB [address] [place] [address] Rolan Parisi M.D. [id number] Performed By: #### 4 6413 #### LAB [address] [place] [address] Rolan Parisi M.D. [id number] Chloride [Moles/Vol] 106 mmol/L Normal 98-108 [facility] Comment on above: Order Comment: [facility] has implemented the eGFR calculation approach that does not have a coefficient for race that conforms to the NKF-ASN Task Force Recommendations. Performed By: #### 4 6126 #### LAB [address] [place] [address] Rolan Parisi M.D. [id number] Creatinine [Mass/Vol] 0.91 mg/dL Normal 0.60-1.20 [facility] Comment on above: Order Comment: [facility] has implemented the eGFR calculation approach that does not have a coefficient for race that conforms to the NKF-ASN Task Force Recommendations. Performed By: #### 4 [id number] #### LAB [address] [place] [address] Rolan Parisi M.D. [id number] EGFR 71 mL/min/1.73 m2 Normal >=60 [facility] Comment on above: Order Comment: [facility] has implemented the eGFR calculation approach that does not have a coefficient for race that conforms to the NKF-ASN Task Force Recommendations. Result Comment: Erika mated GFR was calculated using the 2020 CKD-EPI creatinine equation. Performed By: #### 4 6126 #### LAB [address] [place] [address] Rolan Parisi M.D. [id number] Glucose [Mass/Vol] 156 mg/dL High 65-99 [facility] Comment on above: Order Comment: [facility] has implemented the eGFR calculation approach that does not have a coefficient for race that conforms to the NKF-ASN Task Force Recommendations. Performed By: #### 4 6126 #### LAB [address] [place] [address] Rolan Parisi M.D. [id number] HCO3 (Bld) [Moles/Vol] 27 mmol/L Normal 21-32 [facility] Comment on above: Order Comment: [facility] has implemented the eGFR calculation approach that does not have a coefficient for race that conforms to the NKF-ASN Task Force Recommendations. Performed By: #### 4 6126 #### LAB [address] [place] [address] Rolan Parisi M.D. [id number] Potassium [Moles/Vol] 4.6 mmol/L Normal 3.5-5.1 [facility] Comment on above: Order Comment: [facility] has implemented the eGFR calculation approach that does not have a coefficient for race that conforms to the NKF-ASN Task Force Recommendations. Performed By: #### 4 6126 #### LAB [address] [place] [address] Rolan Parisi M.D. [id number] Protein [Mass/Vol] 6.6 g/dL Normal 6.0-8.0 [facility] Comment on above: Order Comment: [facility] has implemented the eGFR calculation approach that does not have a coefficient for race that conforms to the NKF-ASN Task Force Recommendations. Performed By: #### 4 6126 #### LAB [address] [place] [address] Rolan Parisi M.D. [id number] Sodium [Moles/Vol] 141 mmol/L Normal 135-145 [facility] Comment on above: Order Comment: [facility] has implemented the eGFR calculation approach that does not have a coefficient for race that conforms to the NKF-ASN Task Force Recommendations. Performed By: #### 4 6126 #### LAB [address] [place] [address] Rolan Parisi M.D. [id number] Urea nitrogen [Mass/Vol] 9 mg/dL Normal 8-25 [facility] Comment on above: Order Comment: [facility] has implemented the eGFR calculation approach that does not have a coefficient for race that conforms to the NKF-ASN Task Force Recommendations. Performed By: #### 4 6126 #### LAB [address] [place], [place] [address] Rolan Parisi M.D. [id number] Urea nitrogen/Creatinine [Mass ratio] 9.9 mg/mg Low 10.0-20.0 [facility] Comment on above: Order Comment: [facility] has implemented the eGFR calculation approach that does not have a coefficient for race that conforms to the NKF-ASN Task Force Recommendations. Performed By: #### 4 6126 #### LAB [address] [place], [place] [address] Rolan Parisi M.D. [id number] Comprehensive metabolic 2000 panelon 05-20-2025 Albumin [Mass/Vol] 4.4 g/dL 3.2 - 5.2 g/dL [facility] ALP [Catalytic activity/Vol] 98 U/L 40 - 150 U/L [facility] ALT [Catalytic activity/Vol] 37 U/L High 0 - 35 U/L [facility] Anion gap [Moles/Vol] 13 mmol/L 10 - 2 0 mmol/L [facility] AST [Catalytic activity/Vol] 26 U/L 0 - 35 U/L [facility] Bilirubin [Mass/Vol] 0.6 mg/dL 0.0 - 1 .3 mg/dL [facility] Calcium [Mass/Vol] 10.3 mg/dL High 8.4 - 10. 2 mg/dL [facility] Chloride [Moles/Vol] 106 mmol/L 98 - 10 8 mmol/L [facility] Creatinine [Mass/Vol] 0.91 mg/dL 0.60 - 1.20 mg/dL [facility] GFR/1.73 sq M.predicted CKD-EPI (S/P/Bld) [Vol rate/Area] 71 - PINF [facility] Comment on above: Estimated GFR was ca lculated using the 2020 CKD-EPI creatinine equation. Glucose [Mass/Vol] 156 mg/dL High 65 - 99 mg/dL [facility] HCO3 [Moles/Vol] 27 mmol/L 21 - 32 mmol/L [facility] Interpretation and review of laboratory results Abnormal [facility] Potassium [Moles/Vol] 4.6 mmol/L 3.5 - 5.1 mmol/L [facility] Protein [Mass/Vol] 6.6 g/dL 6.0 - 8.0 g/dL [facility] Sodium [Moles/Vol] 141 mmol/L 135 - 145 mmol/L [facility] Urea nitrogen [Mass/Vol] 9 mg/dL 8 - 25 mg/dL [facility] Urea nitrogen/Creatinine [Mass ratio] 9.9 mg/mg Low 10.0 - 20.0 [facility] has implemented the eGFR calculation approach that does not have a coefficient for race that conforms to the NKF-ASN Task Force Recommendations. [facility] No Panel Informationon 05-20 [facility] PTH INTACT (PROCESSED AT [facility] )on 05-20-2025 PTH INTACT 125.0 pg/mL High 12.0-65.0 [facility] Comment on above: Performed By: #### 4 [id number] #### [facility] [address] [place], [place] [address] Rolan Parisi M.D. [id number] TSH DL <= 0.005 mIU/L Qnon 0 05-20-2025 Interpretation and review of laboratory results Normal [facility] TSH Qn 1.34 m[IU]/L [facility] TSH WITH REFLEX FREE T4on TSH Qn 1.34 m[IU]/L Normal 0.27-4.20 [facility] Comment on above: Performed By: #### 4 6612 #### [facility] [address] [place], [place] [address] Rolan Parisi M.D. [id number] VITAMIN D, TOTAL, 25-OHon VITAMIN D 25-HYDROXY 16 ng/mL Low 20-100 [facility] Comment on above: Order Comment: Vitam in D Expected Values Deficiency: 0-10 Insufficiency: 10-20 Sufficient: 20-100 Toxicity: >100 Performed By: #### 4 [id number] #### [facility] [address] [place], [place] [address] Rolan Parisi M.D. [id number] Vitamin D, Total, 25-OHOrder ed By: Norma Bowden on 05-20-2025 25-hydroxyvitamin D [Mass/Vol] 16 ng/mL Low 20 - 100 ng/mL [facility] Interpretation and review of laboratory results Abnormal [facility] Vitamin D Expected Values Deficiency: 0-10 Insufficiency: 10-20 Sufficient: 20-100 Toxicity: >100 [facility] MM SCREENING GEOVANNY BILATERALo n 02-25-2025 MM SCREENING GEOVANNY BILATERAL EXAMINATION: MM SCREENING GEOVANNY BILATERAL CLINICAL INFORMATION: Encounter for screening mammogram for malignant neoplasm of breast. COMPARISON: 01/31/2024. 01/27/2023. 01/17/2022. TECHNIQUE: CC and MLO views of the left and right breast were obtained using tomosynthesis. Computer-aided detection was utilized in the interpretation of this exam. FINDINGS: There are scattered areas of fibroglandular density. Postsurgical/post treatment findings are noted in the right breast, similar to prior. Additional scattered benign-appearing calcifications are present. No dominant mass, suspicious microcalcifications or unexpected architectural distortion. IMPRESSION: Benign findings. BIRADS: BIRADS - CATEGORY 2 Benign, no evidence of malignancy. Normal interval follow-up is recommended in 12 months. OVERALL ASSESSMENT - BENIGN A letter of notification will be sent to the patient regarding the results. [facility], along with the [employer] and the [employer] recommend annual screening mammograms for women age 40 and older. CADEN/nick Workstation ID: [id number] Dictated by: JAYLIN PLUNKETT on TueFeb 25, 2025 10:54:41 AM EDT Transcribed by: TSEVE MARTIN on TueFeb 25, 2025 11:16:42 AM EDT Finalized by: JAYLIN PLUNKETT on TueFeb 25, 2025 12:52:56 PM EDT Normal [facility] ALBUMIN, RANDOM URINE W/CREA [place]lower 10-16-2024 ALBUMIN, URINE 0.4 mg/dL Normal See Note: [facility] Comment on above: Order Comment: FASTI NG:YES FASTING: YES Result Comment: Joe moe Range: Reference Range Not established Performed By: #### 6 [id number] #### [facility] [address], [address] [place] [address] Parts Processor: Rob Byers MD ALBUMIN/CREATININE RATIO, RANDOM URINE 3 mg/g creat Normal <30 [facility] Comment on above: Order Comment: FASTI NG:YES FASTING: YES Result Comment: The ADA defines abnormalities in albumin excretion as follows: Albuminuria Category Result (mg/g creatinine) Normal to Mildly increased <30 Moderately increased 30-299 Severely increased > OR = 300 The ADA recommends that at least two of three specimens collected within a 3-6 month period be abnormal before considering a patient to be within a diagnostic category. Performed By: #### 6 517 #### [facility] [place] [address] Parts Processor: Rob Byers MD Creatinine (U) [Mass/Vol] 122 mg/dL Normal 20-275 [facility] Comment on above: Order Comment: FASTI NG:YES FASTING: YES Performed By: #### 6 517 #### [facility] [place] [address] Parts Processor: Rob Byers MD COMPREHENSIVE METABOLIC BANNERE [facility] 10-16-2024 Albumin [Mass/Vol] 4.6 g/dL Normal 3.6-5.1 [facility] Comment on above: Order Comment: FASTI NG:YES FASTING: YES Performed By: #### 1 0231 #### [facility] [place] [address] Parts Processor: Rob Byers MD Albumin/Globulin [Mass ratio] 2.1 {ratio} Normal 1.0-2.5 [facility] Comment on above: Order Comment: FASTI NG:YES FASTING: YES Performed By: #### 1 0231 #### [facility] [address], [address] [place] [address] Parts Processor: Rob Byers MD ALP [Catalytic activity/Vol] 93 U/L Normal 37-153 [facility] Comment on above: Order Comment: FASTI NG:YES FASTING: YES Performed By: #### 1 0231 #### [facility] [address], [address] [place] [address] Parts Processor: Rob Byers MD ALT [Catalytic activity/Vol] 24 U/L Normal 6-29 [facility] Comment on above: Order Comment: FASTI NG:YES FASTING: YES Performed By: #### 1 0231 #### [facility] [address], [address] [place] [address] Parts Processor: Rob Byers MD AST [Catalytic activity/Vol] 21 U/L Normal 10-35 [facility] Comment on above: Order Comment: FASTI NG:YES FASTING: YES Performed By: #### 1 0231 #### [facility] [address], [address] [place] [address] Parts Processor: Rob Byers MD Bilirubin [Mass/Vol] 1.1 mg/dL Normal 0.2-1.2 [facility] Comment on above: Order Comment: FASTI NG:YES FASTING: YES Performed By: #### 1 0231 #### [facility] [place] [address] Parts Processor: Rob Byers MD BUN/CREATININE RATIO SEE NOTE: Normal 6-22 [facility] Comment on above: Order Comment: FASTI NG:YES FASTING: YES Result Comment: Not Reported: BUN and Creatinine are within reference range. Performed By: #### 1 0231 #### [facility] [address], [address] [place] [address] Parts Processor: Rob Byers MD Calcium [Mass/Vol] 10.3 mg/dL Normal 8.6-10.4 [facility] Comment on above: Order Comment: FASTI NG:YES FASTING: YES Performed By: #### 1 0231 #### [facility] [place] [address] Parts Processor: Rob Byers MD Chloride [Moles/Vol] 105 mmol/L Normal 98-110 [facility] Comment on above: Order Comment: FASTI NG:YES FASTING: YES Performed By: #### 1 0231 #### [facility] [place] [address] Parts Processor: Rob Byers MD CO2 [Moles/Vol] 26 mmol/L Normal 20-32 [facility] Comment on above: Order Comment: FASTI NG:YES FASTING: YES Performed By: #### 1 0231 #### [facility] [place] [address] Parts Processor: Rob Byers MD Creatinine [Mass/Vol] 0.88 mg/dL Normal 0.50-1.[address] [facility] Comment on above: Order Comment: FASTI NG:YES FASTING: YES Performed By: #### 1 0231 #### [facility] [place] [address] Parts Processor: Rob Byers MD GFR/1.73 sq M.predicted among non-blacks MDRD (S/P/Bld) [Vol rate/Area] 74 mL/min/{1.73_m2} Normal > OR = 60 [facility] Comment on above: Order Comment: FASTI NG:YES FASTING: YES Performed By: #### 1 0231 #### [facility] [place] [address] Parts Processor: Rob Byers MD Globulin (S) [Mass/Vol] 2.2 g/dL Normal 1.9-3.7 [facility] Comment on above: Order Comment: FASTI NG:YES FASTING: YES Performed By: #### 1 0231 #### [facility] [place] [address] Parts Processor: Rob Byers MD Glucose [Mass/Vol] 136 mg/dL High 65-99 [facility] Comment on above: Order Comment: FASTI NG:YES FASTING: YES Result Comment: Fasting reference interval For someone without known diabetes, a glucose value >125 mg/dL indicates that they may have diabetes and this should be confirmed with a follow-up test. Performed By: #### 1 0231 #### [facility] [address], [address] [place] [address] Parts Processor: Rob Byers MD Potassium [Moles/Vol] 4.2 mmol/L Normal 3.5-5.[address] [facility] Comment on above: Order Comment: FASTI NG:YES FASTING: YES Performed By: #### 1 0231 #### [facility] [place] [address] Parts Processor: Rob Byers MD Protein [Mass/Vol] 6.8 g/dL Normal 6.1-8.1 [facility] Comment on above: Order Comment: FASTI NG:YES FASTING: YES Performed By: #### 1 0231 #### [facility] [address], [address] [place] [address] Parts Processor: Rob Byers MD Sodium [Moles/Vol] 140 mmol/L Normal 135-146 [facility] Comment on above: Order Comment: FASTI NG:YES FASTING: YES Performed By: #### 1 0231 #### [facility] [place] [address] Parts Processor: Rob Byers MD Urea nitrogen [Mass/Vol] 12 mg/dL Normal 7-25 [facility] Comment on above: Order Comment: FASTI NG:YES FASTING: YES Performed By: #### 1 0231 #### [facility] [place] [address] Parts Processor: Rob Byers MD HEMOGLOBIN A1con 10-16-2024 HEMOGLOBIN A1c 6.9 % of total Hgb High <5.7 [facility] Comment on above: Order Comment: FASTI NG:YES FASTING: YES Result Comment: For someone without known diabetes, a hemoglobin A1c value of 6.5% or greater indicates that they may have diabetes and this should be confirmed with a follow-up test. For someone with known diabetes, a value <7% indicates that their diabetes is well controlled and a value greater than or equal to 7% indicates suboptimal control. A1c targets should be individualized based on duration of diabetes, age, comorbid conditions, and other considerations. Currently, no consensus exists regarding use of hemoglobin A1c for diagnosis of diabetes for children. Performed By: #### 4 96 #### [facility] [address], [address] [place] [address] Parts Processor: Rob Byers MD LIPID PANEL, [facility] - Cholesterol [Mass/Vol] 153 mg/dL Normal <200 [facility] Comment on above: Order Comment: FASTI NG:YES FASTING: YES Performed By: #### 7 600 #### [facility] [address], [address] [place] [address] Parts Processor: Rob Byers MD Cholesterol in HDL [Mass/Vol] 43 mg/dL Low > OR = 50 [facility] Comment on above: Order Comment: FASTI NG:YES FASTING: YES Performed By: #### 7 600 #### [facility] [address], [address] [place] [address] Parts Processor: Rob Byers MD Cholesterol in LDL [Mass/Vol] 81 mg/dL Normal [facility] Comment on above: Order Comment: FASTI NG:YES FASTING: YES Result Comment: Refe rence range: <100 Desirable range <100 mg/dL for primary prevention; <70 mg/dL for patients with CHD or diabetic patients with > or = 2 CHD risk factors. LDL-C is now calculated using the Stefan-Alin calculation, which is a validated novel method providing better accuracy than the Friedewald equation in the estimation of LDL-C. Stefan SS et al. GIL. 2013;310(19): 5012-2954 (http://education.Beezag.ScaleArc/faq/OPN517) Performed By: #### 7 600 #### [facility] [address], [address] [place] [address] Parts Processor: Rob Byers MD Cholesterol.total/Chol esterol in HDL [Mass ratio] 3.6 {ratio} Normal <5.0 [facility] Comment on above: Order Comment: FASTI NG:YES FASTING: YES Performed By: #### 7 600 #### [facility] [address], [address] [place] [address] Parts Processor: Rob Byers MD NON HDL CHOLESTEROL 110 mg/dL (calc) Normal <130 [facility] Comment on above: Order Comment: FASTI NG:YES FASTING: YES Result Comment: For patients with diabetes plus 1 major ASCVD risk factor, treating to a non-HDL-C goal of <100 mg/dL (LDL-C of <70 mg/dL) is considered a therapeutic option. Performed By: #### 7 600 #### [facility] [address], [address] [place] [address] Parts Processor: Rob Byers MD Triglyceride [Mass/Vol] 194 mg/dL High <150 [facility] Comment on above: Order Comment: FASTI NG:YES FASTING: YES Performed By: #### 7 600 #### [facility] [address], [address] [place] [address] Parts Processor: Rob Byers MD TSH W/REFLEX TO FT4on 2023 TSH W/REFLEX TO FT4 1.06 mIU/L Normal 0.40-4.50 [facility] Comment on above: Order Comment: FASTI NG:YES FASTING: YES Performed By: #### 3 6127 #### [facility] [address], [address] [place] [address] Parts Processor: Rob Byers MD Office Visiton 06-14-2024 Follow-up visit [id number] Dahiana Harry 1960 F Date Provider Department Center 06/14/2024 58-SHANNAN CEVALLOS [facility] None No family history on file Level of Service:05345 AL OFFICE/OUTPATIENT ESTABLISHED SF MDM 10 MIN Reason for Visit and Comments: Basal Cell Carcinoma [[id number]] - FERN 05/01/2024 with Shannan Cevallos PA-C (). Normal [facility] Progress Noteon 06-14-2024 Progress Note DATE OF SERVICE: 06/14/2024 PATIENT NAME: Dahiana Harry : 1960 AGE: 64 y.o. CLINIC NUMBER: [id number] Visit type: Established patient Chief Complaint Patient presents with Basal Cell Carcinoma FERN 05/01/2024 with Shannan Cevallos PA-C (BT). Subjective HISTORY OF PRESENT ILLNESS: This is a 64 y.o. female who presents for evaluation of Basal cell carcinoma; last seen 05/01/2024. A. Skin, left ayala: 05/01/2024 Basal cell carcinoma, superficial type. B. Skin, left lower lateral leg: Basal cell carcinoma, superficial type. F/u- superficial basal cell located on the lower left lateral leg, and left ayala; last seen 05/01/2024. At this visit patient was treated with Imiquimod 5% cream once a day for 6 weeks will do 5-6 days in a row then take a break patient has been using it since 05/04/2024. Admits redness, roughness, flaking, itching, bleeding, and tenderness. Patient does believe that the areas have resolved. History of pacemaker/ defibrillator? No History of HIV/ Hep C? No Allergies to Lidocaine, Epinephrine, Latex or Adhesive? No Review of Systems There were no vitals filed for this visit. PHYSICAL EXAM GENERAL APPEARANCE:?Alert & oriented x3, pleasant. Well developed, well nourished. PSYCH: appropriate mood and affect DERMATOLOGY: (all measurements are in cm, unless otherwise noted) 1. Basal cell carcinoma (BCC) of skin of left lower extremity including hip (2) Left Lower Leg - Anterior Annular erythematous healing nodule with central scaling Left Lower Leg - Anterior Increased erythema, tender around edge [x]Chronic []Acute/New []Stable [x]Flaring/Exacerbatio n []Uncertain Prognosis []OTC Management [x]Prescription Management Educated and reassured. Treatment options, risks, benefits, and expectations reviewed. Continue: -Imiquimod 5% cream apply topically once a day for 2 more weeks. Follow up in about 4 months (around 10/15/2024). Shannan Cevallos PA-C 06/14/24 11:07 AM REFERRING MD: [facility] 36on 06-06-2024 36 Patient aware imiquimod cream prescription was sent in and she verbalized understanding of instructions how to use medication. No further questions at this time expressed. Result Communication Resulted Orders Tissue exam Result Value Ref Range Case Report Surgical Pathology Case: [id number] Authorizing Provider: Shannan Cevallos PA-C Collected: 05/01/2024 0937 Ordering Location: [facility] Received: 05/02/2024 1049 Dermatology Pathologist: Brinda Payton MD Specimens: A) - DERM, Skin, Left Ayala B) - DERM, Skin, Left Lower Lateral Leg Final Diagnosis A. Skin, left ayala: Basal cell carcinoma, superficial type. B. Skin, left lower lateral leg: Basal cell carcinoma, superficial type. Clinical Information A. Neoplasm of uncertain behavior of skin left ayala; rule out BCC, D48.5. B. Neoplasm of uncertain behavior of skin left lower lateral leg; rule out BCC, D48.5. Gross Description A. Received in formalin labeled "left ayala" is a skin shave biopsy specimen that measures 0.8 x 0.8 cm. The specimen is trisected and entirely submitted in one cassette. B. Received in formalin labeled "left lower lateral leg" is a skin shave biopsy specimen that measures 1 x 0.9 cm. The skin surface is lightly pigmented and remarkable for a focal hyperpigmented areas throughout the entire skin specimen. The specimen is trisected and entirely submitted in one cassette. Disclaimer Disclaimer: The following statement applies to all immunohistochemistry, in situ hybridization, molecular studies, and immunofluorescence testing, if performed on this case. The use of one or more reagents in the above tests is regulated as an analyte specific reagent (ASR). These tests were developed and their performance characteristics determined by the clinical laboratories of [facility]. They have not been cleared by the US Food and Drug Administration (FDA). The FDA has determined that such clearance or approval is not necessary. All immunostains were performed on paraffin embedded tissue. Appropriate positive and negative controls (where applicable) were run in parallel with the patient's specimen; these controls showed expected staining pattern, with acceptable intensity of staining. Immunohistochemical assays have not been validated on decalcified tissues. Results should be interpreted with caution given the raised possibility of false negativity on decalcified specimens. Pathologist Interpretation Location [facility], [address] [place] [id number], CLIA: [id number]; Joint Commission: [id number]; CAP: [id number] 4:57 PM Results were successfully communicated with the patient and they acknowledged their understanding. [facility] 36 ----- Message from Shannan Cevallos PA-C sent at 05/03/2024 4:42 PM EDT ----- Please call patient and let her know that both areas of the left leg came back as superficial type basal cell carcinoma. Because they are superficial they can be treated with a topical chemotherapy cream called imiquimod 5% cream. It will need to be applied once daily for 6 weeks. The areas will react by getting red, inflamed and sometimes feel sore or tender but this is "peeling" out the abnormal cells. Would like to see her to check on the progress in about 4-6 weeks. Please send in prescription for imiquimod 5% cream 24 packets apply to both sites of left lower leg once daily for 6 weeks 1 refill [facility] Cryotherapy, skin lesionon 0 05-01-2024 [facility] Lesion biopsyon 05-01-2024 Type of biopsy: tangential Informed consent: discussed and consent obtained Timeout: patient name, date of , surgical site, and procedure verified Procedure prep: Patient was prepped and draped in usual sterile fashion Prep type: Isopropyl alcohol Anesthesia: the lesion was anesthetized in a standard fashion Anesthetic: 1% lidocaine w/ epinephrine 1-100,000 buffered w/ 8.4% NaHCO3 Instrument used: DermaBlade Hemostasis achieved with: electrodesiccation Outcome: patient tolerated procedure well Post-procedure details: sterile dressing applied and wound care instructions given Dressing type: pressure dressing and bandage [facility] Type of biopsy: tangential Informed consent: discussed and consent obtained Timeout: patient name, date of , surgical site, and procedure verified Procedure prep: Patient was prepped and draped in usual sterile fashion Prep type: Isopropyl alcohol Anesthesia: the lesion was anesthetized in a standard fashion Anesthetic: 1% lidocaine w/ epinephrine 1-100,000 buffered w/ 8.4% NaHCO3 Instrument used: DermaBlade Hemostasis achieved with: electrodesiccation Outcome: patient tolerated procedure well Post-procedure details: sterile dressing applied and wound care instructions given Dressing type: pressure dressing and bandage [facility] Office Visiton 05-01-2024 Follow-up visit [id number] Dahiana Harry 1960 F Date Provider Department Center 05/01/2024 58-SHANNAN CEVALLOS [facility] None No family history on file Level of Service:75042 AL OFFICE/OUTPATIENT ESTABLISHED MOD MDM 30 MIN (25) Reason for Visit and Comments: Annual Exam [83] - FERN 10/27/2023 (KB) Normal [facility] PATINSon 05-01-2024 PATINS Protecting Your Skin from the Sun The sun?s rays contain ultraviolet (UV) radiation that can damage our skin. There is no ?safe? ultraviolet ray. Even on cloudy days, UV radiation reaches the earth and can cause skin damage. Ultraviolet A (UVA) is primarily responsible for premature aging, wrinkles, and tanning, while ultraviolet B (UVB) causes sunburns. Both types can severely damage the skin and cause skin cancer. Sun exposure is the most preventable risk factor for all skin cancers, including melanoma. You can still have fun in the sun and decrease your risk for skin cancer. Apply water-resistant sunscreen generously with a Sun Protection Factor (SPF) of at least 30 that provides broad-spectrum protection from both ultraviolet A (UVA) and ultraviolet B (UVB) rays to all exposed skin. Re-apply every two hours, even on cloudy days, and after sweating or swimming. Sunscreens are not perfect because some ultraviolet light may still get through sunscreens, so they should not be used as a way of prolonging sun exposure. Seek shade when appropriate, remembering that the sun?s rays are the strongest between 10 AM and 4 PM. Wear sun protective clothing such as a long-sleeved shirt, pants, a wide-brimmed hat, and sunglasses, when possible. Some sunlight will get through your clothing. You can wear sunscreen underneath, or you can buy clothing that has been treated to give additional sun protection. Such clothing will have a UPF rating on the label. (e.g., www.Wir3sr.ScaleArc, www.DreamsCloud.opinions.h om) Protect children from sun exposure by having them play in the shade, dressing them in protective clothing, and applying sunscreen. Use extra precaution when near water, snow, and sand. These surfaces reflect the damaging rays of the sun and can increase your chance of sunburn. Get vitamin D safely through a healthy diet that may include vitamin supplements. Don?t seek the sun for vitamin D. Avoid tanning beds. Ultraviolet light from the sun and tanning beds can cause wrinkling and skin cancer. If you want to look like you?ve been in the sun, consider using a sunless self-tanning product, but continue to use sunscreen with it. Perform a regular self skin exam. If you notice anything changing, growing, or bleeding on your skin, see a service now developer. Skin cancer is very treatable when caught early. Examples of good broad-spectrum sunscreens: Blue Lizard Coppertone Spectra 3 Clinique [place] Block Neutrogena Ultra Sheer Dry Touch Vanzina [facility] Total Block/Keesha Calixto MD What the active ingredients do: UVB blockers: padimate O homosalate, octyl methoxycinnamate, benzophenone octyl salicylate, phenylbenzimadazole sulfonic acid, octocrylene UVA blockers: oxybenzone, avobenzone (Parsol 1789) Physical blockers: titanium dioxide, zinc oxide (These are chemical-free sunscreens that reflect both UVA and UVB. These may be safest if you are allergic to some sunscreens. These may also be better for sensitive skin.) [facility] Progress Noteon 05-01-2024 Progress Note DATE OF SERVICE: 05/01/2024 PATIENT NAME: Dahiana Harry : 1960 AGE: 64 y.o. CLINIC NUMBER: [id number] Visit type: Established patient Chief Complaint Patient presents with Annual Exam FERN 10/27/2023 (KB) Subjective HISTORY OF PRESENT ILLNESS: Dahiana Harry is a 64 y.o. who presents to the office for a check up. Patient has not had a full skin exam done in office. Patient has a history of BCC treated with MOhs in 2022. C/o-skin lesion located on the left lower leg x 6 months. Denies itching, bleeding, pain. Admits changes in size, shape, color. Denies previous treatment. Patient has no?h/o of ATN. Patient has no?h/o of AKs. ? Patient has?personal h/o skin cancer. BCC L cheek, BCC R lower leg Patient has no?family h/o melanoma. History of pacemaker/ defibrillator? No History of HIV/ Hep C? No Allergies to Lidocaine, Epinephrine, Latex or Adhesive? No Social History: Born/raised in [place]. Excessive sun exposure: Yes Used tanning beds: Yes Patient does wear SPF. Patient does use additional sun protection measures. Review of Systems Dermatology: as per HPI, otherwise negative There were no vitals filed for this visit. PHYSICAL EXAM: GENERAL APPEARANCE:?alert and oriented x3, well developed and well nourished. PSYCH: appropriate mood and affect DERMATOLOGY: Please see diagram of patient examination (all noted lesions were examined dermoscopically; all measured lesions are pigmented macules with benign nevus patterns, unless otherwise noted) 1. Encounter for skin care (2) Generalized, Left Abdomen (side) - Lower SKIN TYPE: III Educated on signs of skin cancer, skin cancer causes, prevention, and risk of developing skin cancers in the future. Sun protection measures reviewed, recommended monthly self skin exams and annual full skin exam. 2. History of nonmelanoma skin cancer (3) Generalized, Left Buccal Cheek, Right Lower Leg - Anterior No evidence of recurrence on exam today. Educated on signs of skin cancer, skin cancer causes, prevention, and risk of developing skin cancers in the future. Sun protection measures reviewed, recommended monthly self skin exams and annual full skin exam. 3. Solar lentigo (2) Generalized, Right Forearm - Anterior Light brown well-circumscribed macule(s) Educated and reassured, benign finding secondary to sun exposure. Patient educated on the proper use of sunscreen, SPF, and how often to reapply. Recommend use of OTC mineral sun block, like Neutrogena or La-Tiff Posay. Patient advised to look for zinc or titanium as the active ingredient(s). 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 Patient advised to perform self-skin checks and call for follow up appointment if any new or concerning lesions detected. 4. Seborrheic keratosis (2) Generalized, Right Lower Back Ruiz-brown waxy papule(s) and plaque(s) Reassured that this is a benign lesion and does not require any treatment. Educated that if the lesion changes color, becomes larger, bleeds, becomes bothersome or painful then it should be reevaluated. Patient expresses understanding and is agreeable to plan. 5. Multiple benign melanocytic nevi of both upper extremities, both lower extremities, and trunk (2) Chest - Medial (Center), Generalized Scattered uniform ruiz/brown nevoid macules and papules; showing normal patterns with dermoscopy Reassured that this is a benign lesion and does not require any treatment. Educated that if the lesion changes color, becomes larger, bleeds, becomes bothersome or painful then it should be reevaluated. Patient expresses understanding and is agreeable to plan. 6. Hemangioma of skin (2) Generalized, Right Flank Bright red vascular papule(s) Reassured and educated, benign finding. 7. Dermatofibroma (2) Generalized, Right Lower Leg - Anterior Firm hyperpigmented papule(s) This is a benign growth that may occur secondary to trauma or insect bite, although the exact cause or manner of development is unknown. 8. Neoplasm of uncertain behavior of skin (2) Left Ayala 6 mm pink macule Lesion biopsy Type of biopsy: tangential Informed consent: discussed and consent obtained Timeout: patient name, date of , surgical site, and procedure verified Procedure prep: Patient was prepped and draped in usual sterile fashion Prep type: Isopropyl alcohol Anesthesia: the lesion was anesthetized in a standard fashion Anesthetic: 1% lidocaine w/ epinephrine 1-100,000 buffered w/ 8.4% NaHCO3 Instrument used: DermaBlade Hemostasis achieved with: electrodesiccation Outcome: patient tolerated procedure well Post-procedure details: sterile dressing applied and wound care instructions given Dressing type: pressure dressing and bandage Specimen A - Tissue exam Differential Diagnosis: Rule out BCC Check Margins: No Left Lower Lateral Leg 8 mm pink brown macule Lesion biopsy Type of biopsy: benjamin (more content not included)... Normal [facility] 36on 11-10-2023 36 ----- Message from Shannan Cevallos PA-C sent at 11/09/2023 4:48 PM EST ----- Please call patient and notify her that the skin biopsy on her chest is benign and no further treatment is needed but the biopsy done on the right lower leg is a treatable type of skin cancer called basal cell carcinoma. Her daughter Quita is in [employer] school and did a rotation with us last month. Please let her know that this area on her right lower leg does need additional treatment. This is a tricky area because theres it takes much longer to heal. This is just because we're on our feet and gravity pulls fluid causing swelling and delayed healing. There are a couple treatment options that she can choose from and are listed as follows: -Imiquimod, topical chemotherapy cream that is applied to the area every night for 4-6 weeks. Then follow up for evaluation. This option will minimize scarring. She has a full skin exam on the 21 of December so we could check it at that visit. -surgical excision-we would send a referral to Dr. Flores-this is likely to leave a biger scar but excised tissue is sent to pathology to be sure margins are clear. Can take quite a bit of time to heal and will leave a larger scar. Let her know these options then let me know which she decides. [facility] 36 Pt returning call fo r results and to schedule removal [place] [id number] ----- Message from Shannan Cevallos PA-C sent at 11/09/2023 4:48 PM EST ----- Please call patient and notify her that the skin biopsy on her chest is benign and no further treatment is needed but the biopsy done on the right lower leg is a treatable type of skin cancer called basal cell carcinoma. Her daughter Quita is in [employer] school and did a rotation with us last month. Please let her know that this area on her right lower leg does need additional treatment. This is a tricky area because theres it takes much longer to heal. This is just because we're on our feet and gravity pulls fluid causing swelling and delayed healing. There are a couple treatment options that she can choose from and are listed as follows: -Imiquimod, topical chemotherapy cream that is applied to the area every night for 4-6 weeks. Then follow up for evaluation. This option will minimize scarring. She has a full skin exam on the 21 of December so we could check it at that visit. -surgical excision-we would send a referral to Dr. Flores-this is likely to leave a biger scar but excised tissue is sent to pathology to be sure margins are clear. Can take quite a bit of time to heal and will leave a larger scar. Let her know these options then let me know which she decides. [facility] 36 Called patient back, left message on machine. [facility] 36 LMOVM returning call for biopsy results. Normal [facility] 36 ----- Message from Shannan Cevallos PA-C sent at 11/09/2023 4:48 PM EST ----- Please call patient and notify her that the skin biopsy on her chest is benign and no further treatment is needed but the biopsy done on the right lower leg is a treatable type of skin cancer called basal cell carcinoma. Her daughter Quita is in [employer] school and did a rotation with us last month. Please let her know that this area on her right lower leg does need additional treatment. This is a tricky area because theres it takes much longer to heal. This is just because we're on our feet and gravity pulls fluid causing swelling and delayed healing. There are a couple treatment options that she can choose from and are listed as follows: -Imiquimod, topical chemotherapy cream that is applied to the area every night for 4-6 weeks. Then follow up for evaluation. This option will minimize scarring. She has a full skin exam on the 21 of December so we could check it at that visit. -surgical excision-we would send a referral to Dr. Flores-this is likely to leave a biger scar but excised tissue is sent to pathology to be sure margins are clear. Can take quite a bit of time to heal and will leave a larger scar. Let her know these options then let me know which she decides. 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 If a dressing is in place, please leave it for 24 hours unless given other instructions. 2. After that time, remove the initial bandage, and cleanse the area with a mild, fragrance free soap such as Dove, Cetaphil, or CeraVe. 3. Apply Vaseline to the area and cover with a new bandage. Please do not use Neosporin, Polysporin, or Bacitracin, as these may cause unwanted allergic reactions in some patients, and are not necessary for good healing. 4. Repeat the above steps every day for 7 days unless otherwise directed by physician or nurse. 5. If any bleeding occurs, use a clean cotton or gauze, apply firm, direct pressure to the area for 10 to 15 minutes. If the bleeding does not stop, call our office at [phone]. 6. The wound should improve daily. If you notice any increased redness, swelling, drainage, warmth, or pain in the area, please notify our office. Please be advised that it can take up to 2 weeks for these sites to heal. In some patients it may take even longer depending on location (lower legs / feet) and / or if the patient has history of diabetes. Our office will notify you of the results in about 2 weeks. [facility] Progress Noteon 10-27-2023 Progress Note DATE OF SERVICE: 10/27/2023 PATIENT NAME: Dahiana Harry : 1960 AGE: 63 y.o. 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 female who presents for evaluation of spots of concern. Pt has been to Derm in the past. Pt h/o Breast cancer. Pt h/o BCC L cheek x 5 plus yrs. No f/h Melanoma. Spot under L eye x 2 yrs. Blakely in color and dry at times. Not itchy, tender or bothersome. Spot on R presybeterian x yrs. Pt states she was told this was an age spot but it is itchy at times. Spot on the chest x 1 year. Pt states the lesion is darker. No change in size or color. Not itchy, tender or bothersome. Spot on L forearm x couple yrs. Blakely in color and dry at times. Not itchy, tender or bothersome. Spots on R leg x over 5 yrs. No change in size or color. Not itchy, tender or bothersome. History of pacemaker/ defibrillator? No History of HIV/ Hep C? No Allergies to Lidocaine, Epinephrine, Latex or Adhesive? No Social History: Born/raised in [place]. Excessive sun exposure: Yes Used tanning beds: Yes Patient does wear SPF. Patient does use additional sun protection measures. REVIEW OF SYSTEMS: General/Constitutional Feels well; denies h/o fatigue, weight change, night sweats, fevers or chills. Lymphatic Denies swollen lymph nodes. Dermatologic As per HPI; otherwise negative There were no vitals filed for this visit. GENERAL APPEARANCE:?Alert & oriented x3, pleasant. Well developed, well nourished. PSYCH: appropriate mood and affect DERMATOLOGY: 1. Neoplasm of uncertain behavior of skin (2) Chest - Medial (Center) Skin Biopsy Type of biopsy: tangential Informed consent: discussed and consent obtained Timeout: patient name, date of , surgical site, and procedure verified Anesthesia: the lesion was anesthetized in a standard fashion Anesthetic: 1% lidocaine w/ epinephrine 1-100,000 buffered w/ 8.4% NaHCO3 Instrument used: DermaBlade Hemostasis achieved with: electrodesiccation Outcome: patient tolerated procedure well Post-procedure details: wound care instructions given Specimen A - Tissue exam Differential Diagnosis: SK vs ATN Check Margins: No Right Lower Leg - Anterior Skin Biopsy Type of biopsy: tangential Informed consent: discussed and consent obtained Timeout: patient name, date of , surgical site, and procedure verified Anesthesia: the lesion was anesthetized in a standard fashion Anesthetic: 1% lidocaine w/ epinephrine 1-100,000 buffered w/ 8.4% NaHCO3 Instrument used: DermaBlade Hemostasis achieved with: electrodesiccation Outcome: patient tolerated procedure well Post-procedure details: wound care instructions given Specimen B - Tissue exam Differential Diagnosis: Pigmented BCC vs MM Check Margins: No Biopsy recommended. Patient expresses understanding and is in agreement with the plan. Biopsy (x2) obtained today. Patient educated that we will call with the biopsy results within 2 weeks. Care instructions reviewed and written instructions provided to patient. 2. Actinic keratoses (2) Left Forearm - Posterior, Left Malar Cheek Blakely scaly macule(s) Patient educated on actinic keratosis and the possibility of transformation into SCC. Treatment options are discussed with risks and benefits reviewed. Cryotherapy is agreed upon and performed. Reassured that redness, swelling and the formation of a blister at the site of cryotherapy are possible reactions. After care instructions are given and reviewed. Patient to apply Vaseline to treated sites while healing. Patient to monitor for resolution. If unresolved after 2-3 months, patient to return for further evaluation and management Cryotherapy Actinic Keratosis: Medical Necessity: It was explained to the patient that actinic keratoses are precancerous. Consent: The patient understood all the risks and benefits prior to treatment. The risks explained included scarring, hyper and/or hypopigmentation. Although this treatment is highly effective, recurrences do occur and this was explained to the patient. The patient further understood that these lesions are precancerous and may develop into a malignancy. Method: Liquid nitrogen was used to treat the lesion(s) with two freeze-thaw cycles. Site: 2=L forearm-Posterior x1, L malar cheek x1 Post-op: The patient was instructed to clean the site normally twice a day. Signs of infection were reviewed and patient was instructed to call if he/ she develops increasing pain, purulent drainage, or beefy redness. The patient was informed that a blister may occur at the cryo site and that this is an expected event. Sun protection was reviewed and patient advised to use sunscreen with SPF 30 or greater on exposed skin when outdoors. Post-op instructions were given orally and in writing. Cryotherapy, skin lesion - Left Fore (more content not included)... Normal [facility] Skin Biopsyon 10-27-2023 Type of biopsy: tangential Informed consent: discussed and consent obtained Timeout: patient name, date of , surgical site, and procedure verified Anesthesia: the lesion was anesthetized in a standard fashion Anesthetic: 1% lidocaine w/ epinephrine 1-100,000 buffered w/ 8.4% NaHCO3 Instrument used: DermaBlade Hemostasis achieved with: electrodesiccation Outcome: patient tolerated procedure well Post-procedure details: wound care instructions given [facility] Type of biopsy: tangential Informed consent: discussed and consent obtained Timeout: patient name, date of , surgical site, and procedure verified Anesthesia: the lesion was anesthetized in a standard fashion Anesthetic: 1% lidocaine w/ epinephrine 1-100,000 buffered w/ 8.4% NaHCO3 Instrument used: DermaBlade Hemostasis achieved with: electrodesiccation Outcome: patient tolerated procedure well Post-procedure details: wound care instructions given [facility] Vitamin D, Total, 25-OHon 25-hydroxyvitamin D [Mass/Vol] 30 ng/mL 30 - 100 ng/mL [facility] Comment on above: Vitamin D status: Deficiency: <20 ng/mL Insufficiency: 20-30 ng/mL Sufficiency: 30-100 ng/mL Toxicity: >100 ng/mL Please note that Fluorescein which is used in angiography has been shown to falsely elevate the results of Vitamin D with our current assay. Evidence suggests that patients undergoing fluorescein dye angiography can retain small amounts of fluorescein in the body for up to 48 to 72 hours post-treatment. In the cases of patients with renal insufficiency, retention could be much longer. Samples should be resubmitted post fluorescein clearance to ensure there is no interference with the Vitamin D test result. Interpretation and review of laboratory results Normal [facility] Assay performed florinda Sánchez's chemiluminescence methodology. [facility] COVID-19, MOLECULARon 2020 SARS-CoV-2 (COVID-19) RNA LORENA+probe Ql (Unsp spec) Detected Abnormal Not Detected [facility] Comment on above: Result Comment: This test was performed under the FDA's Emergency Use Authorization (EUA). Testing was performed using the TaqPath? RT-PCR COVID-19 Assay. This test has not been approved for use in asymptomatic patients and its performance in this patient population has not been evaluated. Negative results do not rule out the presence of SARS-CoV-2/COVID-19. Fact sheets for this EUA can be found at the following links: For Healthcare Providers: https://www.fda.gov/media/267458/download For Patients: https://www.fda.gov/media/614338/download Performed By: #### L [id number] #### [facility] [address] [place] [address] Fahad Flores M.D. [id number] GLUCOSE (POC DEVICE)Ordered By: Chiquis Vargas on 06-04-2021 GLUCOSE, POINT OF CARE [address] [facility] Interpretation and review of laboratory results Abnormal [facility] Operator [id number] [facility] COVID-19, MolecularOrdered B y: Deborah Stokes on 05-16-2021 SARS-CoV-2 (COVID-19) RdRp gene LORENA+probe Ql (Resp) Not detected Not Detected [facility] Comment on above: This test was perfor med under the FDA's Emergency Use Authorization (EUA). Testing was performed using the [employer] ID NOW COVID-19 assay on the ID NOW platform. This test has not been approved for use in asymptomatic patients and its performance in this patient population has not been evaluated. Negative results do not rule out the presence of SARS-CoV-2/COVID-19. Fact sheets for the EUA can be found at the following links: For Healthcare Providers: https://www.fda.gov/media/956869/download For Patients: https://www.fda.gov/media/418724/download SARS-CoV-2 (COVID-19) RdRp g richardson LORENA+probe Ql (Resp)Ordered By: Deborah Stokes on 04-12-2021 Interpretation and review of laboratory results Normal [facility] Tendon Sheath Injection: Fle xor Tendon SheathOrdered By: Ronit Sinha on 03-24-2021 Ronit Sinha CNP 03/24/2021 2:19 PM Tendon Sheath Injection: Flexor Tendon Sheath Performed by: Ronit Sinha CNP Authorized by: Ronit Sinha CNP Consent given by: Patient Time out: Immediately prior to the procedure a time out was called Timeout performed at: 03/24/2021 2:18 PM Physician or proceduralist has discussed critical or nonroutine steps, procedure duration and anticipated blood loss: Yes Indications: Pain Location: Thumb Laterality: Left Prep: patient was prepped and draped in usual sterile fashion Needle size: 22 G Approach: Volar Medications: 40 mg triamcinolone acetonide 40 mg/mL Anesthetic used: Ethyl Chloride Patient tolerance: Patient tolerated the procedure well with no immediate complications [facility] Axilla Only Right (Breast Related)on 08-26-2020 Lymphocytes (Bld) [#/Vol] No axillary lymphadenopathy. BIRADS - CATEGORY 2 Benign, no evidence of malignancy. OVERALL ASSESSMENT - BENIGN A letter of notification will be sent to the patient regarding the results. [facility], along with the National Comprehensive Cancer Network, the [employer], and [facility], recommend annual screening mammograms for women age 40 and older. Workstation ID: [id number] [facility] EXAMINATION: US AXIL LA ONLY RIGHT (BREAST RELATED) HISTORY: ORDERING SYSTEM PROVIDED HISTORY: h/o right breast cancer, now with fullness in axilla, TECHNOLOGIST PROVIDED HISTORY: Illness/Other Reason for exam: Right axilla fullness/hx right breast ca/hx right lymphadenectomy Encounter Type: Ongoing Additional signs and symptoms: no ORDERING SYSTEM PROVIDED DIAGNOSIS CODES: R22.2 Axillary fullness COMPARISON: 01/24/2019 TECHNIQUE: Ultrasound of the right axilla FINDINGS: Patient is status post mastectomy. No suspicious mass or architectural distortion identified in the right axilla. No axillary lymphadenopathy. [facility] Interface, Rad In Fu ji Speechq - 08/26/2020 2:02 PM EDT EXAMINATION: US AXILLA ONLY RIGHT (BREAST RELATED) HISTORY: ORDERING SYSTEM PROVIDED HISTORY: h/o right breast cancer, now with fullness in axilla, TECHNOLOGIST PROVIDED HISTORY: Illness/Other Reason for exam: Right axilla fullness/hx right breast ca/hx right lymphadenectomy Encounter Type: Ongoing Additional signs and symptoms: no ORDERING SYSTEM PROVIDED DIAGNOSIS CODES: R22.2 Axillary fullness COMPARISON: 01/24/2019 TECHNIQUE: Ultrasound of the right axilla FINDINGS: Patient is status post mastectomy. No suspicious mass or architectural distortion identified in the right axilla. No axillary lymphadenopathy. IMPRESSION: No axillary lymphadenopathy. BIRADS - CATEGORY 2 Benign, no evidence of malignancy. OVERALL ASSESSMENT - BENIGN A letter of notification will be sent to the patient regarding the results. [facility], along with the National Comprehensive Cancer [facility], the [employer], and [facility], recommend annual screening mammograms for women age 40 and older. Workstation ID: [id number] [facility] Tendon Sheath Injection: Fle xor Tendon Sheathon 04-17-2020 Ronit Sinha CNP 04/17/2020 9:46 AM Tendon Sheath Injection: Flexor Tendon Sheath Performed by: Ronit Sinha CNP Authorized by: Ronit Sinha CNP Consent given by: Patient Time out: Immediately prior to the procedure a time out was called Timeout performed at: 04/17/2020 9:45 AM Physician or proceduralist has discussed critical or nonroutine steps, procedure duration and anticipated blood loss: Yes Indications: Pain Location: Thumb Laterality: Right Prep: patient was prepped and draped in usual sterile fashion Needle size: 22 G Approach: Volar Medications: 40 mg triamcinolone acetonide 40 mg/mL Anesthetic used: Ethyl Chloride Patient tolerance: Patient tolerated the procedure well with no immediate complications [facility] Mammography Diagnostic Geovanny Bilateralon 01-22-2020 No mammographic or sonographic evidence of malignancy. BIRADS: BIRADS - CATEGORY 2 Benign, no evidence of malignancy. Normal interval follow-up is recommended in 12 months. OVERALL ASSESSMENT - BENIGN A letter of notification will be sent to the patient regarding the results. [facility], along with the National Comprehensive Cancer Network, the [employer], and [facility], recommend annual screening mammograms for women age 40 and older. Workstation ID: [id number] [facility] EXAMINATION: MM DIAGNOSTIC GEOVANNY BILATERAL INDICATION: ORDERING SYSTEM PROVIDED HISTORY: h/o right breast cancer with lumpectomy. 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 Computer-aided detection was utilized in the interpretation of this exam. FINDINGS: MAMMOGRAPHY: The breast tissue density is heterogenously dense. There are postsurgical changes of the right breast. No suspicious masses, asymmetries or calcifications identified within the right or left breast. There are benign calcifications within the left breast. [facility] Comprehensive Metabolic Pane patrick 09-25-2019 Albumin [Mass/Vol] 4.1 g/dL 3.2 - 5.2 g/dL [facility] ALP [Catalytic activity/Vol] 67 U/L 40 - 150 U/L [facility] ALT [Catalytic activity/Vol] 36 U/L 14 - 65 U/L [facility] Anion gap [Moles/Vol] 7 mmol/L Low 10 - 2 0 mmol/L [facility] AST [Catalytic activity/Vol] 23 U/L 0 - 45 U/L [facility] Bilirubin [Mass/Vol] 0.8 mg/dL 0 - 1.3 mg/dL [facility] Calcium [Mass/Vol] 9.9 mg/dL 8.4 - 10. 2 mg/dL [facility] Chloride [Moles/Vol] 107 mmol/L 98 - 10 8 mmol/L [facility] Creatinine [Mass/Vol] 1.02 mg/dL 0.4 - 1.1 mg/dL [facility] GFR/1.73 sq M predicted among non-blacks MDRD (S/P/Bld) [Vol rate/Area] The eGFR should be used for monitoring renal function only and not for medication dosing. [facility] GFR/1.73 sq M.predicted CKD-EPI (S/P/Bld) [Vol rate/Area] 61 >=60 mL/min/1.73 m2 [facility] Glucose [Mass/Vol] 119 mg/dL High 65 - 99 mg/dL [facility] HCO3 [Moles/Vol] 30 mmol/L 21 - 32 mmol/L [facility] Interpretation and review of laboratory results Abnormal [facility] Potassium [Moles/Vol] 3.8 mmol/L 3.5 - 5.1 mmol/L [facility] Protein [Mass/Vol] 7.2 g/dL 6 - 8 g/dL [facility] Sodium [Moles/Vol] 140 mmol/L 135 - 145 mmol/L [facility] Urea nitrogen [Mass/Vol] 12 mg/dL 8 - 25 mg/dL [facility] Urea nitrogen/Creatinine [Mass ratio] 11.8 mg/mg [facility] Otheron 06-05-2019 Session Dosage Given (cGy) 200 [facility] Total Dose to Date (cGy) 1000 [facility] RADIATION THERAPY - UNVERIFI [facility] Course End Date 06/05/2019 11:42 AM [facility] Course ID C1 April 2019 [facility] Course Intent Curative [facility] Course Start Date [id number] [facility] Elapsed Days 29 [facility] First Treatment Date 05/07/2019 9:21 AM [facility] Fractions Treated to Date 5 [facility] Fractions Treated to Date 16 [facility] Last Treatment Date 06/05/2019 8:15 AM [facility] Plan ID RBRST [id number] [facility] Plan ID R BRST_FiF [facility] Plan Name RBRST [id number] [facility] Plan Name R BRST_FiF [facility] Plan Primary Reference Point RBRST_ BST [facility] Plan Primary Reference Point Rt Breast [facility] Prescribed Dose per Fraction (cGy) 200 [facility] Prescribed Dose per Fraction (cGy) 266 [facility] Prescription Dose (cGy) 1000 [facility] Prescription Dose (cGy) 4256 [facility] Reference Point cp [facility]BRST_BST [facility] Reference Point RBRST_ BST [facility] h Reference Point cp R BRST [facility] h Reference Point Rt Breast [facility] Total Dose to Date (cGy) 4343 [facility] Total Dose to Date (cGy) 4256 [facility] Total Fractions Prescribed 5 [facility] Total Fractions Prescribed 16 [facility] Otheron 02-27-2019 Successful needle/wi re localization of the right breast. Workstation ID: [id number] [facility] EXAMINATION: BREAST NEEDLE/WIRE LOCALIZATION INDICATION: ORDERING SYSTEM PROVIDED HISTORY: right breast cancer, TECHNOLOGIST PROVIDED HISTORY: ORDERING SYSTEM PROVIDED DIAGNOSIS CODES: C50.911 Malignant neoplasm of right female breast, unspecified estrogen receptor status, unspecified site of breast (HCC) COMPARISON: Ultrasound-guided right breast biopsy dated 01/31/2019, right breast mammogram dated 01/31/2019. TECHNIQUE AND FINDINGS: Risks and benefits were explained to the patient. Written informed consent was obtained. Pause and confirm was performed. A wire localization using mammographic guidance was performed for the right breast mass at 12 o'clock 5 cm from the nipple. The skin was prepped in the usual manner. Local anesthetic was administered to the access site. A 7 cm needle and wire was inserted into the targeted area under mammographic guidance, using an CC approach. The patient tolerated the procedure well. No complications. The patient was sent to surgery, and the surgical specimen was imaged. The specimen contains the localization wire, biopsy marking clip and the mass. [facility], Rad In Fu ji Speechq - 02/27/2019 1:41 PM EDT EXAMINATION: BREAST NEEDLE/WIRE LOCALIZATION INDICATION: ORDERING SYSTEM PROVIDED HISTORY: right breast cancer, TECHNOLOGIST PROVIDED HISTORY: ORDERING SYSTEM PROVIDED DIAGNOSIS CODES: C50.911 Malignant neoplasm of right female breast, unspecified estrogen receptor status, unspecified site of breast (HCC) COMPARISON: Ultrasound-guided right breast biopsy dated 01/31/2019, right breast mammogram dated 01/31/2019. TECHNIQUE AND FINDINGS: Risks and benefits were explained to the patient. Written informed consent was obtained. Pause and confirm was performed. A wire localization using mammographic guidance was performed for the right breast mass at 12 o'clock 5 cm from the nipple. The skin was prepped in the usual manner. Local anesthetic was administered to the access site. A 7 cm needle and wire was inserted into the targeted area under mammographic guidance, using an CC approach. The patient tolerated the procedure well. No complications. The patient was sent to surgery, and the surgical specimen was imaged. The specimen contains the localization wire, biopsy marking clip and the mass. IMPRESSION: Successful needle/wire localization of the right breast. Workstation ID: [id number] [facility] Radionuclide sentine l node injection as detailed above. Workstation ID: [id number] [facility] EXAMINATION: NM LYMPHOSCINTIGRAM INDICATION: ORDERING SYSTEM PROVIDED HISTORY: right breast cancer, TECHNOLOGIST PROVIDED HISTORY: Reason for exam: RT Breast CA, [place] Node Location Illness/Other Encounter Type: Ongoing Additional signs and symptoms: N/A ORDERING SYSTEM PROVIDED DIAGNOSIS CODES: C50.911 Malignant neoplasm of right female breast, unspecified estrogen receptor status, unspecified site of breast (HCC) COMPARISON: Right breast needle localization dated 02/27/2019. TECHNIQUE AND FINDINGS: After obtaining informed verbal and written consent followed by pause and confirm, the patient's skin was prepped using Betadine. The site of injection was the upper-outer quadrant at the skin - areolar junction. A dose of 541 uCi of LYMPHOSEEK was injected in a subcutaneous location using a 27-gauge needle without difficulty. Radionuclide imaging demonstrates a sentinel lymph node within the right axilla. The patient tolerated the procedure well, suffering no immediate complications, and was sent to the operative suite in good condition. [facility], [place] [facility] ji Speechq - 02/27/2019 10:07 AM EDT EXAMINATION: NM LYMPHOSCINTIGRAM INDICATION: ORDERING SYSTEM PROVIDED HISTORY: right breast cancer, TECHNOLOGIST PROVIDED HISTORY: Reason for exam: RT Breast CA, [place] Node Location Illness/Other Encounter Type: Ongoing Additional signs and symptoms: N/A ORDERING SYSTEM PROVIDED DIAGNOSIS CODES: C50.911 Malignant neoplasm of right female breast, unspecified estrogen receptor status, unspecified site of breast (HCC) COMPARISON: Right breast needle localization dated 02/27/2019. TECHNIQUE AND FINDINGS: After obtaining informed verbal and written consent followed by pause and confirm, the patient's skin was prepped using Betadine. The site of injection was the upper-outer quadrant at the skin - areolar junction. A dose of 541 uCi of LYMPHOSEEK was injected in a subcutaneous location using a 27-gauge needle without difficulty. Radionuclide imaging demonstrates a sentinel lymph node within the right axilla. The patient tolerated the procedure well, suffering no immediate complications, and was sent to the operative suite in good condition. IMPRESSION: Radionuclide sentinel node injection as detailed above. Workstation ID: [id number] [facility] Basic metabolic panelon 01-27 Anion gap molar conc 11 mmol/L 10 - 20 mmol/L [facility] Calcium mass conc 9.5 mg/dL 8.4 - 10.2 mg/dL [facility] Chloride molar conc 104 mmol/L 98 - 108 mmol/L [facility] Creatinine mass conc 0.95 mg/dL 0.4 - 1 .1 mg/dL [facility] GFR/1.73 sq M predicted among non-blacks MDRD vol rate/area (S/P/Bld) The eGFR should be used for monitoring renal function only and not for medication dosing. [facility] GFR/1.73 sq M.predicted CKD-EPI vol rate/area (S/P/Bld) 67 >=60 mL/min/1.73 m2 [facility] Glucose mass conc 163 mg/dL High 65 - 99 mg/dL [facility] HCO3 molar conc 29 mmol/L 21 - 32 mmol/L [facility] Interpretation and review of laboratory results Abnormal [facility] Potassium molar conc 4.2 mmol/L 3.5 - 5 .1 mmol/L [facility] Sodium molar conc 140 mmol/L 135 - 145 mmol/L [facility] Urea nitrogen mass conc 13 mg/dL 8 - 25 mg/dL [facility] Urea nitrogen/Creatinine mass ratio 13.7 mg/mg [facility] CBC WITH AUTO DIFFERENTIALon 02-21-2019 Basophils #/vol (Bld) 0.03 10*3/uL [facility] Basophils/100 WBC (Bld) 0.7 % [facility] Eosinophils #/vol (Bld) 0.08 10*3/uL [facility] Eosinophils/100 WBC (Bld) 1.8 % [facility] Erythrocyte distribution width Entitic volume (RBC) 12.8 % 11.6 - 14.8 % [facility] Hematocrit Volume Fraction (Bld) 38.9 % 36 - 46 % [facility] Hemoglobin mass conc (Bld) 13.6 g/dL 12 - 16 g/dL [facility] Immature granulocytes #/vol (Bld) 0.02 10*3/uL [facility] Immature granulocytes/100 WBC (Bld) 0.40 % [facility] Comment on above: The IG parameter is the percentage of metamyelocytes, myelocytes, and promyelocytes. Interpretation and review of laboratory results Abnormal [facility] Lymphocytes #/vol (Bld) 1.81 10*3/uL [facility] Lymphocytes/100 WBC (Bld) 40.4 % [facility] MCH Entitic mass (RBC) 31.0 pg 26 - 34 pg [facility] MCHC mass conc (RBC) 35.0 g/dL 31 - 37 g/dL [facility] MCV Entitic volume (RBC) 88.6 fL 80 - 100 fL [facility] Monocytes #/vol (Bld) 0.31 10*3/uL [facility] Monocytes/100 WBC (Bld) 6.9 % [facility] Neutrophils #/vol (Bld) 2.23 10*3/uL [facility] Neutrophils/100 WBC (Bld) 49.8 % [facility] Nucleated RBC #/vol (Bld) 0.00 10*3/uL [facility] Nucleated RBC/100 WBC Ratio (Bld) 0.0 % [facility] Platelet mean volume Entitic volume (Bld) 10.5 fL 9 - 15.5 fL [facility] Platelets #/vol (Bld) 159 10*3/uL [facility] RBC #/vol (Bld) 4.39 10*6/uL [facility] WBC #/vol (Bld) 4.48 10*3/uL Low [facility] PT/INRon 02-21-2019 INR Coag RelTime (PPP) 1.0 {INR} [facility] Interpretation and review of laboratory results Normal [facility] Prothrombin time (PT) Coag time (PPP) 12.4 s [facility] During the induction phase of oral anticoagulation, the INR may not reflect the anticoagulation status of the patient. Therapeutic ranges for INR's are: Most clinical situations: INR 2.0-3.0 Mechanical Prosthetic Valve: INR 2.5-3.5 Critical: INR >5.0 [facility] MAMMOGRAM UNILAT DIAG, DIGIT Leonard 01-31-2019 MAMMOGRAM UNILAT DIAG, DIGITAL Final Report Accession No. [id number] Performed: Jan 31 2019 11:38AM Examination: RIGHT MAMMOGRAM UNILAT DIAG, DIGITAL EXAM: MAMMOGRAM UNILAT DIAG, DIGITAL RIGHT CLINICAL STATEMENT: Diagnostic postbiopsy mammogram for clip placement.. COMPARISON: Ultrasound guided right breast biopsy dated 01/31/2019, ultrasound of the right breast dated 01/24/2019, mammograms dated 01/24/2019 and 01/19/2019. TECHNIQUE: Digital craniocaudad and mediolateral oblique views of the right breast. FINDINGS: A biopsy marking clip is noted in the right breast at 12:00 middle depth. This biopsy marking clip is at the biopsy site. IMPRESSION: Successful postbiopsy marker clip placement. TECHNOLOGIST: Lacy Metzger Interpreting Radiologist: LIO BARDALES D.O. Trans: n/a : cc: Normal [facility] SURGon 01-31-2019 SURG .1 Patient Name: LYN HARRY Reason for Corrected Report [id number]: Results of ER/AL/HER2 02/05/2019 Source Breast biopsy, Right 12:00 Clinical History Right breast nodule, radial location-12:00, zone-5 cm FN, mass, birads-4 and size- 0.7 cm Diagnosis Invasive ductal carcinoma. COMMENT: The tumor cells are show diffusely membranous expression of E-cadherin, supportive of the diagnosis. ER/AL/HER2 studies performed by image analysis show the following results: ER: Positive (100 percent, intensity 3) AL: Positive (100 percent, intensity 3) HER2: Negative (0). Gross Description Received in formalin are multiple gylihw-nuvgg-gto cores measuring in aggregate 1.9 x 0.8 x 0.4 cm. ET 1 block. Date/Time of fresh tissue collected: 01/31/2019 @ 11:05 a.m. Date/Time tissue placed in formalin: 01/31/2019 @ 11:05 a.m. Date/Time removed from formalin: 01/31/2019 @ 6:45 p.m. CS:lat (ICT/lt) Electronically Signed By Kirby Olvera MD , Pathologist (Case signed 02/05/2019) [facility] US GDE BREAST BIOP CLIP MASS INCon 01-31-2019 GDE BREAST BIOP CLIP MASS INC A D D E N D U M Final Report Accession No: [id number] Performed: Jan 31 2019 11:36AM Examination: RIGHT US GDE BREAST BIOP CLIP MASS INC Begin Addendum #1 Pathology: Prelim: MALIGNANT invasive mammary carcinoma. Pathology results are concordant with imaging findings. Recommendation: Surgical consult. Original Report EXAM: ULTRASOUND-GUIDED BIOPSY BREAST EXAM DATE AND TIME:01/31/2019 11:36 AM EST COMPARISON STUDIES:Right breast ultrasound dated 01/24/2019, mammograms dated 01/24/2019 and 01/19/2019. INDICATION: Irregular right breast mass. DESCRIPTION: The risks and benefits of the procedure were explained to the patient. Written informed consent was obtained. Pause and confirm was performed. SITE 1: The right breast mass at 12:00 5 cm from the nipple was targeted. The skin was cleansed. Local anesthetic was administered. A small skin le was made in the breast. Under ultrasound guidance, a biopsy needle was inserted into the appropriate position through an introducer device. Then, multiple core specimens were obtained. A biopsy marking clip was placed at the biopsy site. Postprocedure mammogram demonstrates the clip in appropriate position. The patient tolerated the procedure well, without any immediate complications. IMPRESSION: Successful ultrasound-guided right breast biopsy. Pathology pending. An addendum will be placed when the pathology results are available. cc: Normal [facility] MAMMOGRAM BILAT DIAGNOS, DIG ITALon 01-24-2019 MAMMOGRAM BILAT DIAGNOS, DIGITAL Final Report Accession No. [id number] Performed: Jan 24 2019 3:01PM Examination: MAMMOGRAM BILAT DIAGNOS, DIGITAL EXAM: MAMMOGRAM BILAT DIAGNOS, DIGITAL, US BREAST, UNILATERAL LIMITED RIGHT, US BREAST, UNILATERAL LIMITED LEFT CLINICAL STATEMENT: Abnormality seen on screening mammogram. COMPARISONS: Mammogram dated 01/19/2019 TECHNIQUE: CC and MLO spot compression views and ML view of the right and left breast. Targeted bilateral breast ultrasound. DENSITY: There are scattered fibroglandular densities. FINDINGS MAMMOGRAM: The previously described architectural distortion identified within the right breast central to the nipple posterior depth seen on the CC view only persists on the spot compression CC view. The architectural distortion is not appreciated on the lateral views of the right breast. The previously described round asymmetry within the medial aspect of the left breast on the CC view only is again identified on the additional mammographic images and is located at 9-10 o'clock. FINDINGS ULTRASOUND: Targeted right breast ultrasound was performed at 12:00. An irregular hypoechoic mass is identified at 12:00 5 cm from the nipple measuring 0.3 x 0.7 x 0.5 cm. No vascularity identified. This mass corresponds with mammography. The right axilla is normal. Targeted left breast ultrasound was performed at 10:00. A complicated appearing cyst is identified at 10:00 4 cm from the nipple measuring 0.9 x 0.3 x 0.9 cm. No vascularity identified. The left axilla is normal. IMPRESSION: 1. Suspicious mass within the right breast at 12:00 5 cm from the nipple. 2. Benign complicated appearing cyst within the left breast at 10:00 4 cm from the nipple. OVERALL BIRADS: 4C-HIGH SUSPICION FOR MALIGNANCY-BIOPSY IS RECOMMENDED. RECOMMENDATION: 1: Ultrasound-guided biopsy of the right breast is recommended. . TECHNOLOGIST: Yessica Price Interpreting Radiologist: LIO BARDALES D.O. Trans: n/a : cc: Normal [facility] US BREAST, UNILATERAL LIMITE Don 01-24-2019 US BREAST, UNILATERAL LIMITED Final Report Accession No: [id number] Performed: Jan 24 2019 4:15PM Examination: LEFT US BREAST, UNILATERAL LIMITED EXAM: MAMMOGRAM BILAT DIAGNOS, DIGITAL, US BREAST, UNILATERAL LIMITED RIGHT, US BREAST, UNILATERAL LIMITED LEFT CLINICAL STATEMENT: Abnormality seen on screening mammogram. COMPARISONS: Mammogram dated 01/19/2019 TECHNIQUE: CC and MLO spot compression views and ML view of the right and left breast. Targeted bilateral breast ultrasound. DENSITY: There are scattered fibroglandular densities. FINDINGS MAMMOGRAM: The previously described architectural distortion identified within the right breast central to the nipple posterior depth seen on the CC view only persists on the spot compression CC view. The architectural distortion is not appreciated on the lateral views of the right breast. The previously described round asymmetry within the medial aspect of the left breast on the CC view only is again identified on the additional mammographic images and is located at 9-10 o'clock. FINDINGS ULTRASOUND: Targeted right breast ultrasound was performed at 12:00. An irregular hypoechoic mass is identified at 12:00 5 cm from the nipple measuring 0.3 x 0.7 x 0.5 cm. No vascularity identified. This mass corresponds with mammography. The right axilla is normal. Targeted left breast ultrasound was performed at 10:00. A complicated appearing cyst is identified at 10:00 4 cm from the nipple measuring 0.9 x 0.3 x 0.9 cm. No vascularity identified. The left axilla is normal. IMPRESSION: 1. Suspicious mass within the right breast at 12:00 5 cm from the nipple. 2. Benign complicated appearing cyst within the left breast at 10:00 4 cm from the nipple. OVERALL BIRADS: 4C-HIGH SUSPICION FOR MALIGNANCY-BIOPSY IS RECOMMENDED. RECOMMENDATION: 1: Ultrasound-guided biopsy of the right breast is recommended. . Interpreting Physician: LIO BARDALES D.O. Trans: n/a : cc: Normal [facility] US BREAST, UNILATERAL LIMITED Final Report Accession No: [id number] Performed: Jan 24 2019 4:15PM Examination: RIGHT US BREAST, UNILATERAL LIMITED EXAM: MAMMOGRAM BILAT DIAGNOS, DIGITAL, US BREAST, UNILATERAL LIMITED RIGHT, US BREAST, UNILATERAL LIMITED LEFT CLINICAL STATEMENT: Abnormality seen on screening mammogram. COMPARISONS: Mammogram dated 01/19/2019 TECHNIQUE: CC and MLO spot compression views and ML view of the right and left breast. Targeted bilateral breast ultrasound. DENSITY: There are scattered fibroglandular densities. FINDINGS MAMMOGRAM: The previously described architectural distortion identified within the right breast central to the nipple posterior depth seen on the CC view only persists on the spot compression CC view. The architectural distortion is not appreciated on the lateral views of the right breast. The previously described round asymmetry within the medial aspect of the left breast on the CC view only is again identified on the additional mammographic images and is located at 9-10 o'clock. FINDINGS ULTRASOUND: Targeted right breast ultrasound was performed at 12:00. An irregular hypoechoic mass is identified at 12:00 5 cm from the nipple measuring 0.3 x 0.7 x 0.5 cm. No vascularity identified. This mass corresponds with mammography. The right axilla is normal. Targeted left breast ultrasound was performed at 10:00. A complicated appearing cyst is identified at 10:00 4 cm from the nipple measuring 0.9 x 0.3 x 0.9 cm. No vascularity identified. The left axilla is normal. IMPRESSION: 1. Suspicious mass within the right breast at 12:00 5 cm from the nipple. 2. Benign complicated appearing cyst within the left breast at 10:00 4 cm from the nipple. OVERALL BIRADS: 4C-HIGH SUSPICION FOR MALIGNANCY-BIOPSY IS RECOMMENDED. RECOMMENDATION: 1: Ultrasound-guided biopsy of the right breast is recommended. . Interpreting Physician: LIO BARDALES D.O. Trans: n/a : cc: Normal [facility] MAMMOGRAM BILAT SCREEN, AC Delatorre 01-19-2019 MAMMOGRAM BILAT SCREEN, DIGITAL Final Report Accession No. [id number] Performed: Jan 19 2019 3:42PM Examination: MAMMOGRAM BILAT SCREEN, DIGITAL EXAM: MAMMOGRAM BILAT SCREEN, DIGITAL CLINICAL STATEMENT: Screening mammogram. COMPARISON: Mammograms dated 12/08/2017 and 07/03/2013. TECHNIQUE: Digital bilateral screening mammography with computer-aided detection. Craniocaudal and mediolateral oblique images obtained of both breasts. TISSUE DENSITY: There are scattered fibroglandular densities. FINDINGS: An area of architectural distortion is identified within the right breast central to the nipple posterior depth seen on the CC view only. A round asymmetry is seen within the medial aspect of the left breast middle depth seen on the CC view only. No additional suspicious masses, asymmetries or clustered microcalcifications identified. There are benign calcifications bilaterally. IMPRESSION: Indeterminate architectural distortion within the right breast. Indeterminate asymmetry within the left breast. BIRADS: 0-ADDITIONAL IMAGING REQUIRED NOTE: A negative x ray report should not delay biopsy if a dominant or clinically suspicious mass is present. A small percentage of cancers cannot be identified by mammography. RECOMMENDATION: 1: Spot compression views and ML view bilaterally. Possible bilateral breast ultrasound. A letter of notification will be sent to the patient regarding the results. TECHNOLOGIST: Alice Sheppard Interpreting Radiologist: LIO BARDALES D.O. Trans: n/a : cc: Normal [facility] Vital Signs Date Time Vital Sign Value Performing Clinician Facility 09-12-2025 14:25-0400 Body height 162.56 cm ELO OGDEN MD Work Phone: [facility] 09-12-2025 14:25-0400 Body mass index (BMI) [Ratio] 35.3 kg/m2 ELO OGDEN MD Work Phone: [facility] 09-12-2025 14:25-0400 Body weight 93.44 kg ELO OGDEN MD Work Phone: 8(012)930-524057 [place] [address] 09-12-2025 14:25-0400 Diastolic blood pressure 90 mm[Hg] ELO OGDEN MD Work Phone: 3(095)698-119857 [place] [address] 09-12-2025 14:25-0400 Respiratory rate 16 /min ELO OGDEN MD Work Phone: 7([phone])185-683357 [place] [address] 09-12-2025 14:25-0400 Systolic blood pressure 161 mm[Hg] ELO OGDEN MD Work Phone: 4([phone] [place] [address] 07-26-2025 14:41-0400 Body height 162.56 cm ELO OGDEN MD Work Phone: 5([phone])103-876757 [place] [address] 07-26-2025 14:41-0400 Body mass index (BMI) [Ratio] 35.3 kg/m2 ELO OGDEN MD Work Phone: 1(024)874-082426 [address] 07-26-2025 14:41-0400 Body weight 93.44 kg ELO OGDEN MD Work Phone: 6(920)933-053226 [address] 07-26-2025 14:41-0400 Diastolic blood pressure 80 mm[Hg] ELO OGDEN MD Work Phone: 8(237)879-791657 [place] [address] 07-26-2025 14:41-0400 Respiratory rate 16 /min ELO OGDEN MD Work Phone: 4(238)735-981026 [address] 07-26-2025 14:41-0400 Systolic blood pressure 124 mm[Hg] ELO OGDEN MD Work Phone: 8(264)080-239526 [address] 07-01-2025 11:07-0400 Body mass index (BMI) [Ratio] 35.19 kg/m2 Robbie Santo MD Work Phone: [facility] 07-01-2025 11:07-0400 Body weight 92.99 kg Robbie Santo MD Work Phone: [facility] 07-01-2025 11:07-0400 Diastolic blood pressure 88 mm[Hg] Robbie Santo MD Work Phone: [facility] 07-01-2025 11:07-0400 Heart rate 68 /min Robbie Santo MD Work Phone: [facility] 07-01-2025 11:07-0400 Systolic blood pressure 154 mm[Hg] Robbie Santo MD Work Phone: [facility] 05-27-2025 11:13-0400 Body height 162.6 cm Robbie Santo MD Work Phone: [facility] 05-27-2025 11:13-0400 Body mass index (BMI) [Ratio] 35.36 kg/m2 Robbie Santo MD Work Phone: [facility] 05-27-2025 11:13-0400 Body weight 93.44 kg Robbie Santo MD Work Phone: [facility] 05-27-2025 11:13-0400 Diastolic blood pressure 87 mm[Hg] Robbie Santo MD Work Phone: [facility] 05-27-2025 11:13-0400 Heart rate 75 /min Robbie Santo MD Work Phone: [facility] 05-27-2025 11:13-0400 Respiratory rate 16 /min Robbie Santo MD Work Phone: [facility] 05-27-2025 11:13-0400 SaO2% (BldA) [Mass fraction] 95 % Robbie Santo MD Work Phone: [facility] 05-27-2025 11:13-0400 Systolic blood pressure 144 mm[Hg] Robbie Santo MD Work Phone: [facility] 05-20-2025 10:00-0400 Body height 165.1 cm Shannan Calzada [facility] Work Phone: [facility] 05-20-2025 10:00-0400 Body mass index (BMI) [Ratio] 34.31 kg/m2 Shannan Calzada CNP Work Phone: [facility] 05-20-2025 10:00-0400 Body temperature 98.1 [degF] Shannan Calzada CNP Work Phone: [facility] 05-20-2025 10:00-0400 Body weight 93.53 kg Shannan Calzada CNP Work Phone: [facility] 05-20-2025 10:00-0400 Diastolic blood pressure 88 mm[Hg] Shannan Calzada CNP Work Phone: [facility] 05-20-2025 10:00-0400 Heart rate 76 /min Shannan Calzada CNP Work Phone: [facility] 05-20-2025 10:00-0400 SaO2% (BldA) [Mass fraction] 95 % Shannan Calzada CNP Work Phone: [facility] 05-20-2025 10:00-0400 Systolic blood pressure 148 mm[Hg] Shannan Calzada CNP Work Phone: [facility] 12-05-2024 08:38-0500 Body mass index (BMI) [Ratio] 33.6 kg/m2 Sebas Lee CNP Work Phone: [facility] 12-05-2024 08:38-0500 Body weight 91.58 kg Sebas Lee CNP Work Phone: [facility] 12-05-2024 08:38-0500 Diastolic blood pressure 89 mm[Hg] Sebas Lee CNP Work Phone: [facility] 12-05-2024 08:38-0500 Heart rate 66 /min Sebas Lee CNP Work Phone: [facility] 12-05-2024 08:38-0500 Respiratory rate 18 /min Sebas Lee CNP Work Phone: [facility] 12-05-2024 08:38-0500 SaO2% (BldA) [Mass fraction] 96 % Sebas Lee CNP Work Phone: [facility] 12-05-2024 08:38-0500 Systolic blood pressure 140 mm[Hg] Sebas Lee [employer] Work Phone: [facility] 10-24-2024 08:22-0500 Body height 165.1 cm Elo Ogden MD Work Phone: [facility] 10-24-2024 08:22-0500 Body mass index (BMI) [Ratio] 33.12 kg/m2 Elo gOden MD Work Phone: [facility] 10-24-2024 08:22-0500 Body temperature 98.01 [degF] Elo Ogden MD Work Phone: [facility] 10-24-2024 08:22-0500 Body weight 90.27 kg Elo Ogden MD Work Phone: [facility] 10-24-2024 08:22-0500 Diastolic blood pressure 83 mm[Hg] Elo Ogden MD Work Phone: [facility] 10-24-2024 08:22-0500 Heart rate 71 /min Elo Ogden MD Work Phone: [facility] 10-24-2024 08:22-0500 Respiratory rate 16 /min Elo Ogden MD Work Phone: [facility] 10-24-2024 08:22-0500 SaO2% (BldA) [Mass fraction] 96 % Elo Ogden MD Work Phone: [facility] 10-24-2024 08:22-0500 Systolic blood pressure 130 mm[Hg] Elo Ogden MD Work Phone: [facility] 05-14-2024 15:08-0400 Body height 165.1 cm Shannan Edmondfield BEAUTY SALES ADVISOR Work Phone: [facility] 05-14-2024 15:08-0400 Body mass index (BMI) [Ratio] 32.77 kg/m2 Shannan Calzada BEAUTY SALES ADVISOR Work Phone: [facility] 05-14-2024 15:08-0400 Body temperature 98.29 [degF] Shannan Zheng BEAUTY SALES ADVISOR Work Phone: [facility] 05-14-2024 15:08-0400 Body weight 89.31 kg Shannan Calzada BEAUTY SALES ADVISOR Work Phone: [facility] 05-14-2024 15:08-0400 Diastolic blood pressure 78 mm[Hg] Shannan Berkshire BEAUTY SALES ADVISOR Work Phone: [facility] 05-14-2024 15:08-0400 Heart rate 80 /min Shannan Calzada BEAUTY SALES ADVISOR Work Phone: [facility] 05-14-2024 15:08-0400 SaO2% (BldA) [Mass fraction] 90 % Shannan Zheng BEAUTY SALES ADVISOR Work Phone: [facility] 05-14-2024 15:08-0400 Systolic blood pressure 122 mm[Hg] Shannan Berkshire BEAUTY SALES ADVISOR Work Phone: [facility] 11-14-2023 15:04-0500 Body mass index (BMI) [Ratio] 31.55 kg/m2 Shannan Calzada BEAUTY SALES ADVISOR Work Phone: [facility] 11-14-2023 15:04-0500 Body temperature 98.29 [degF] Shannan Berkshire BEAUTY SALES ADVISOR Work Phone: [facility] 11-14-2023 15:04-0500 Body weight 86 kg Shannan Calzada BEAUTY SALES ADVISOR Work Phone: [facility] 11-14-2023 15:04-0500 Diastolic blood pressure 81 mm[Hg] Shannan Berkshire BEAUTY SALES ADVISOR Work Phone: [facility] 11-14-2023 15:04-0500 Heart rate 70 /min Shannan Calzada BEAUTY SALES ADVISOR Work Phone: [facility] 11-14-2023 15:04-0500 SaO2% (BldA) [Mass fraction] 97 % Shannan Calzada BEAUTY SALES ADVISOR Work Phone: [facility] 11-14-2023 15:04-0500 Systolic blood pressure 125 mm[Hg] Shannan Berkshire BEAUTY SALES ADVISOR Work Phone: [facility] 10-03-2023 14:35-0500 Body height 165.1 cm Elo Ogden MD Work Phone: [facility] 10-03-2023 14:35-0500 Body mass index (BMI) [Ratio] 31.28 kg/m2 Elo Ogden MD Work Phone: [facility] 10-03-2023 14:35-0500 Body temperature 98.71 [degF] Elo Ogden MD Work Phone: [facility] 10-03-2023 14:35-0500 Body weight 85.28 kg Elo Ogden MD Work Phone: [facility] 10-03-2023 14:35-0500 Diastolic blood pressure 79 mm[Hg] Elo Ogden MD Work Phone: [facility] 10-03-2023 14:35-0500 Heart rate 75 /min Elo Ogden MD Work Phone: [facility] 10-03-2023 14:35-0500 Respiratory rate 16 /min Elo Ogden MD Work Phone: [facility] 10-03-2023 14:35-0500 SaO2% (BldA) [Mass fraction] 97 % Elo Ogden MD Work Phone: [facility] 10-03-2023 14:35-0500 Systolic blood pressure 119 mm[Hg] Elo Ogden MD Work Phone: [facility] 08-18-2023 17:37-0400 Body height 165.1 cm Oh Price APRN-BEAUTY SALES ADVISOR Work Phone: [facility] 08-18-2023 17:37-0400 Body mass index (BMI) [Ratio] 31.62 kg/m2 Oh Price APRN-BEAUTY SALES ADVISOR Work Phone: [facility] 08-18-2023 17:37-0400 Body temperature 98.8 [degF] Oh Price APRN-BEAUTY SALES ADVISOR Work Phone: [facility] 08-18-2023 17:37-0400 Body weight 86.18 kg Oh Price INTERCHANGE AGENT-BEAUTY SALES ADVISOR Work Phone: [facility] 08-18-2023 17:37-0400 Diastolic blood pressure 76 mm[Hg] Oh Price INTERCHANGE AGENT-BEAUTY SALES ADVISOR Work Phone: [facility] 08-18-2023 17:37-0400 Heart rate 69 /min Oh Price INTERCHANGE AGENT-BEAUTY SALES ADVISOR Work Phone: [facility] 08-18-2023 17:37-0400 Respiratory rate 16 /min Oh Price INTERCHANGE AGENT-BEAUTY SALES ADVISOR Work Phone: [facility] 08-18-2023 17:37-0400 SaO2% (BldA) [Mass fraction] 98 % Oh Price INTERCHANGE AGENT-BEAUTY SALES ADVISOR Work Phone: [facility] 08-18-2023 17:37-0400 Systolic blood pressure 131 mm[Hg] Oh Price INTERCHANGE AGENT-BEAUTY SALES ADVISOR Work Phone: [facility] 03-24-2023 14:59-0400 Body height 165.1 cm Elo Ogden MD Work Phone: [facility] 03-24-2023 14:59-0400 Body mass index (BMI) [Ratio] 31.65 kg/m2 Elo Ogden MD Work Phone: [facility] 03-24-2023 14:59-0400 Body temperature 98.4 [degF] Elo Ogden MD Work Phone: [facility] 03-24-2023 14:59-0400 Body weight 86.27 kg Elo Ogden MD Work Phone: [facility] 03-24-2023 14:59-0400 Diastolic blood pressure 74 mm[Hg] Elo Ogden MD Work Phone: [facility] 03-24-2023 14:59-0400 Heart rate 83 /min Elo Ogden MD Work Phone: [facility] 03-24-2023 14:59-0400 Respiratory rate 16 /min Elo Ogden MD Work Phone: [facility] 03-24-2023 14:59-0400 SaO2% (BldA) [Mass fraction] 96 % Elo Ogden MD Work Phone: [facility] 03-24-2023 14:59-0400 Systolic blood pressure 118 mm[Hg] Elo Ogden MD Work Phone: [facility] 12-21-2022 14:40-0500 Body height 165.1 cm Elo Ogden MD Work Phone: [facility] 12-21-2022 14:40-0500 Body mass index (BMI) [Ratio] 31.78 kg/m2 Elo Ogden MD Work Phone: [facility] 12-21-2022 14:40-0500 Body temperature 97 [degF] Elo Ogden MD Work Phone: [facility] 12-21-2022 14:40-0500 Body weight 86.64 kg Elo Ogden MD Work Phone: [facility] 12-21-2022 14:40-0500 Diastolic blood pressure 80 mm[Hg] Elo Ogden MD Work Phone: [facility] 12-21-2022 14:40-0500 Heart rate 76 /min Elo Ogden MD Work Phone: [facility] 12-21-2022 14:40-0500 Respiratory rate 16 /min Elo Ogden MD Work Phone: [facility] 12-21-2022 14:40-0500 SaO2% (BldA) [Mass fraction] 96 % Elo Ogden MD Work Phone: [facility] 12-21-2022 14:40-0500 Systolic blood pressure 127 mm[Hg] Elo Ogden MD Work Phone: [facility] 11-15-2022 15:04-0500 Body height 165.1 cm Marion Garrett MD Work Phone: [facility] 11-15-2022 15:04-0500 Body mass index (BMI) [Ratio] 31.73 kg/m2 Marion Garrett MD Work Phone: [facility] 11-15-2022 15:04-0500 Body temperature 98.2 [degF] Marion Garrett MD Work Phone: [facility] 11-15-2022 15:04-0500 Body weight 86.5 kg Marion Garrett MD Work Phone: [facility] 11-15-2022 15:04-0500 Diastolic blood pressure 86 mm[Hg] Marion Garrett MD Work Phone: [facility] 11-15-2022 15:04-0500 Heart rate 86 /min Marion Garrett MD Work Phone: [facility] 11-15-2022 15:04-0500 SaO2% (BldA) [Mass fraction] 96 % Marion Garrett MD Work Phone: [facility] 11-15-2022 15:04-0500 Systolic blood pressure 138 mm[Hg] Marion Garrett MD Work Phone: [facility] 09-24-2022 07:39-0400 Diastolic blood pressure 85 mm[Hg] Elo Ogden MD Work Phone: [facility] 09-24-2022 07:39-0400 Heart rate 75 /min Elo Ogden MD Work Phone: [facility] 09-24-2022 07:39-0400 Systolic blood pressure 143 mm[Hg] Elo Ogden MD Work Phone: [facility] 09-24-2022 07:38-0400 Body height 165.1 cm Elo Ogden MD Work Phone: [facility] 09-24-2022 07:38-0400 Body mass index (BMI) [Ratio] 33.61 kg/m2 Elo Ogden MD Work Phone: [facility] 09-24-2022 07:38-0400 Body temperature 98.01 [degF] Elo Ogden MD Work Phone: [facility] 09-24-2022 07:38-0400 Body weight 91.63 kg Elo Ogden MD Work Phone: [facility] 09-24-2022 07:38-0400 Respiratory rate 16 /min Elo Ogden MD Work Phone: [facility] 09-24-2022 07:38-0400 SaO2% (BldA) [Mass fraction] 97 % Elo Ogden MD Work Phone: [facility] 08-26-2022 10:27-0400 Body mass index (BMI) [Ratio] 33.78 kg/m2 Braden Gee MD Work Phone: [facility] 08-26-2022 10:27-0400 Body weight 92.08 kg Braden Gee MD Work Phone: [facility] 08-26-2022 10:27-0400 Diastolic blood pressure 84 mm[Hg] Braden Gee MD Work Phone: [facility] 08-26-2022 10:27-0400 Heart rate 84 /min Braden Gee MD Work Phone: [facility] 08-26-2022 10:27-0400 Systolic blood pressure 159 mm[Hg] Braden Gee MD Work Phone: [facility] 08-10-2022 14:17-0400 Body height 165.1 cm Elo Ogden MD Work Phone: [facility] 08-10-2022 14:17-0400 Body mass index (BMI) [Ratio] 33.61 kg/m2 Elo Ogden MD Work Phone: [facility] 08-10-2022 14:17-0400 Body temperature 98.2 [degF] Elo Ogden MD Work Phone: [facility] 08-10-2022 14:17-0400 Body weight 91.63 kg Elo Ogden MD Work Phone: [facility] 08-10-2022 14:17-0400 Diastolic blood pressure 87 mm[Hg] Elo Ogden MD Work Phone: [facility] 08-10-2022 14:17-0400 Heart rate 74 /min Elo Ogden MD Work Phone: [facility] 08-10-2022 14:17-0400 Respiratory rate 16 /min Elo Ogden MD Work Phone: [facility] 08-10-2022 14:17-0400 SaO2% (BldA) [Mass fraction] 97 % Elo Ogden MD Work Phone: [facility] 08-10-2022 14:17-0400 Systolic blood pressure 134 mm[Hg] Elo Ogden MD Work Phone: [facility] 07-30-2022 14:24-0400 Body height 165.1 cm Braden Gee MD Work Phone: [facility] 07-30-2022 14:24-0400 Body mass index (BMI) [Ratio] 33.76 kg/m2 Braden Gee MD Work Phone: [facility] 07-30-2022 14:24-0400 Body weight 92.03 kg Braden Gee MD Work Phone: [facility] 07-30-2022 14:24-0400 Diastolic blood pressure 81 mm[Hg] Braden Gee MD Work Phone: [facility] 07-30-2022 14:24-0400 Heart rate 83 /min Braden Gee MD Work Phone: [facility] 07-30-2022 14:24-0400 SaO2% (BldA) [Mass fraction] 96 % Braden Gee MD Work Phone: [facility] 07-30-2022 14:24-0400 Systolic blood pressure 127 mm[Hg] Braden Gee MD Work Phone: [facility] 07-19-2022 14:36-0400 Body height 165.1 cm Dereje Trejo MD Work Phone: [facility] 07-19-2022 14:36-0400 Body mass index (BMI) [Ratio] 33.81 kg/m2 Dereje Trejo MD Work Phone: [facility] 07-19-2022 14:36-0400 Body temperature 98.6 [degF] Dereje Trejo MD Work Phone: [facility] 07-19-2022 14:36-0400 Body weight 92.17 kg Dereje Trejo MD Work Phone: [facility] 07-19-2022 14:36-0400 Diastolic blood pressure 76 mm[Hg] Dereje Trejo MD Work Phone: [facility] 07-19-2022 14:36-0400 Heart rate 81 /min Dereje Trejo MD Work Phone: [facility] 07-19-2022 14:36-0400 Respiratory rate 14 /min Dereje Trejo MD Work Phone: [facility] 07-19-2022 14:36-0400 SaO2% (BldA) [Mass fraction] 95 % Dereje Trejo MD Work Phone: [facility] 07-19-2022 14:36-0400 Systolic blood pressure 124 mm[Hg] Dereje Trejo MD Work Phone: [facility] 06-08-2022 19:07-0400 Diastolic blood pressure 84 mm[Hg] Sebas Lee BEAUTY SALES ADVISOR Work Phone: [facility] Comment on above: .....recheck als 06-08-2022 19:07-0400 Systolic blood pressure 147 mm[Hg] Sebas Lee BEAUTY SALES ADVISOR Work Phone: [facility] Comment on above: .....recheck als 06-08-2022 19:04-0400 Body mass index (BMI) [Ratio] 33.95 kg/m2 Sebas Lee CNP Work Phone: [facility] 06-08-2022 19:04-0400 Body temperature 98.6 [degF] Sebas Lee CNP Work Phone: [facility] 06-08-2022 19:04-0400 Body weight 92.53 kg Sebas Lee CNP Work Phone: [facility] 06-08-2022 19:04-0400 Heart rate 87 /min Sebas Lee CNP Work Phone: [facility] 06-08-2022 19:04-0400 Respiratory rate 14 /min Sebas Lee CNP Work Phone: [facility] 06-08-2022 19:04-0400 SaO2% (BldA) [Mass fraction] 96 % Sebas Lee CNP Work Phone: [facility] 02-22-2022 15:10-0400 Body height 165.1 cm Marion Garrett MD Work Phone: [facility] 02-22-2022 15:10-0400 Body mass index (BMI) [Ratio] 34.06 kg/m2 Marion Garrett MD Work Phone: [facility] 02-22-2022 15:10-0400 Body temperature 98.2 [degF] Marion Garrett MD Work Phone: [facility] 02-22-2022 15:10-0400 Body weight 92.85 kg Marion Garrett MD Work Phone: [facility] 02-22-2022 15:10-0400 Diastolic blood pressure 80 mm[Hg] Marion Garrett MD Work Phone: [facility] 02-22-2022 15:10-0400 Heart rate 90 /min Marion Garrett MD Work Phone: [facility] 02-22-2022 15:10-0400 SaO2% (BldA) [Mass fraction] 97 % Marion Garrett MD Work Phone: [facility] 02-22-2022 15:10-0400 Systolic blood pressure 148 mm[Hg] Marion Garrett MD Work Phone: [facility] 02-03-2022 15:56-0500 Body height 165.1 cm Dereje Trejo MD Work Phone: [facility] 02-03-2022 15:56-0500 Body mass index (BMI) [Ratio] 34.11 kg/m2 Dereje Trejo MD Work Phone: [facility] 02-03-2022 15:56-0500 Body temperature 98.4 [degF] Dereje Trejo MD Work Phone: [facility] 02-03-2022 15:56-0500 Body weight 92.99 kg Dereje Trejo MD Work Phone: [facility] 02-03-2022 15:56-0500 Diastolic blood pressure 77 mm[Hg] Dereje Trejo MD Work Phone: [facility] 02-03-2022 15:56-0500 Heart rate 69 /min Dereje Trejo MD Work Phone: [facility] 02-03-2022 15:56-0500 Respiratory rate 14 /min Dereje Trejo MD Work Phone: [facility] 02-03-2022 15:56-0500 SaO2% (BldA) [Mass fraction] 95 % Dereje Trejo MD Work Phone: [facility] 02-03-2022 15:56-0500 Systolic blood pressure 123 mm[Hg] Dereje Trejo MD Work Phone: [facility] 11-02-2021 15:22-0500 Diastolic blood pressure 96 mm[Hg] Dereje Trejo MD Work Phone: [facility] 11-02-2021 15:22-0500 Systolic blood pressure 138 mm[Hg] Dereje Trejo MD Work Phone: [facility] 11-02-2021 15:12-0500 Body height 165.1 cm Dereje Trejo MD Work Phone: [facility] 11-02-2021 15:12-0500 Body mass index (BMI) [Ratio] 34.45 kg/m2 Dereje Trejo MD Work Phone: [facility] 11-02-2021 15:12-0500 Body temperature 98.2 [degF] Dereje Trejo MD Work Phone: [facility] 11-02-2021 15:12-0500 Body weight 93.89 kg Dereje Trejo MD Work Phone: [facility] 11-02-2021 15:12-0500 Heart rate 83 /min Dereje Trejo MD Work Phone: [facility] 11-02-2021 15:12-0500 Respiratory rate 14 /min Dereje Trejo MD Work Phone: [facility] 11-02-2021 15:12-0500 SaO2% (BldA) [Mass fraction] 97 % Dereje Trejo MD Work Phone: [facility] 08-26-2021 14:54-0400 Body height 165.1 cm Pratik Riley MD Work Phone: [facility] 08-26-2021 14:54-0400 Body mass index (BMI) [Ratio] 34.05 kg/m2 Pratik Riley MD Work Phone: [facility] 08-26-2021 14:54-0400 Body temperature 98.4 [degF] Pratik Riley MD Work Phone: [facility] 08-26-2021 14:54-0400 Body weight 92.81 kg Pratik Riley MD Work Phone: [facility] 08-26-2021 14:54-0400 Diastolic blood pressure 87 mm[Hg] Pratik Riley MD Work Phone: [facility] 08-26-2021 14:54-0400 Heart rate 89 /min Pratik Riley MD Work Phone: [facility] 08-26-2021 14:54-0400 SaO2% (BldA) [Mass fraction] 95 % Pratik Riley MD Work Phone: [facility] 08-26-2021 14:54-0400 Systolic blood pressure 137 mm[Hg] Pratik Riley MD Work Phone: [facility] 07-26-2021 18:31-0400 Diastolic blood pressure 84 mm[Hg] Tabbitha Gerald BEAUTY SALES ADVISOR Work Phone: [facility] 07-26-2021 18:31-0400 Systolic blood pressure 143 mm[Hg] Tabbitha Gerald BEAUTY SALES ADVISOR Work Phone: [facility] 07-26-2021 17:48-0400 Body height 165.1 cm Tabbitha Gerald BEAUTY SALES ADVISOR Work Phone: [facility] 07-26-2021 17:48-0400 Body mass index (BMI) [Ratio] 33.28 kg/m2 Tabbitha Gerald BEAUTY SALES ADVISOR Work Phone: [facility] 07-26-2021 17:48-0400 Body temperature 100.99 [degF] Tabbitha Gerald BEAUTY SALES ADVISOR Work Phone: [facility] 07-26-2021 17:48-0400 Body weight 90.72 kg Tabbitha Gerald BEAUTY SALES ADVISOR Work Phone: [facility] 07-26-2021 17:48-0400 Heart rate 116 /min Tabbitha Gerald BEAUTY SALES ADVISOR Work Phone: [facility] 07-26-2021 17:48-0400 Respiratory rate 16 /min Tabbitha Gerald BEAUTY SALES ADVISOR Work Phone: [facility] 07-26-2021 17:48-0400 SaO2% (BldA) [Mass fraction] 94 % Tabbitha Gerald BEAUTY SALES ADVISOR Work Phone: [facility] 06-25-2021 11:32-0400 Body height 165.1 cm Dereje Trejo MD Work Phone: [facility] 06-25-2021 11:32-0400 Body mass index (BMI) [Ratio] 33.68 kg/m2 Dereje Trejo MD Work Phone: [facility] 06-25-2021 11:32-0400 Body temperature 98.01 [degF] Dereje Trejo MD Work Phone: [facility] 06-25-2021 11:32-0400 Body weight 91.81 kg Dereje Trejo MD Work Phone: [facility] 06-25-2021 11:32-0400 Diastolic blood pressure 76 mm[Hg] Dereje Trejo MD Work Phone: [facility] 06-25-2021 11:32-0400 Heart rate 76 /min Dereje Trejo MD Work Phone: [facility] 06-25-2021 11:32-0400 Respiratory rate 14 /min Dereje Trejo MD Work Phone: [facility] 06-25-2021 11:32-0400 SaO2% (BldA) [Mass fraction] 94 % Dereje Trejo MD Work Phone: [facility] 06-25-2021 11:32-0400 Systolic blood pressure 115 mm[Hg] Dereje Trejo MD Work Phone: [facility] 06-18-2021 10:48-0400 Body height 165.1 cm Marlyn Nelson PA-C Work Phone: [facility] 06-18-2021 10:48-0400 Body mass index (BMI) [Ratio] 34.11 kg/m2 Marlyn Nelson PA-C Work Phone: [facility] 06-18-2021 10:48-0400 Body temperature 97.59 [degF] Marlyn Nelson PA-C Work Phone: [facility] 06-18-2021 10:48-0400 Body weight 92.99 kg Marlyn Nelson PA-C Work Phone: [facility] 06-04-2021 11:30-0400 Diastolic blood pressure 87 mm[Hg] Chiquis Vargas MD Work Phone: [facility] 06-04-2021 11:30-0400 Heart rate 97 /min Chiquis Vargas MD Work Phone: [facility] 06-04-2021 11:30-0400 Respiratory rate 20 /min Chiquis Vargas MD Work Phone: [facility] 06-04-2021 11:30-0400 SaO2% (BldA) [Mass fraction] 97 % Chiquis Vargas MD Work Phone: [facility] 06-04-2021 11:30-0400 Systolic blood pressure 152 mm[Hg] Chiquis Vargas MD Work Phone: [facility] 06-04-2021 10:59-0400 Body temperature 98.2 [degF] Chiquis Vargas MD Work Phone: [facility] 06-04-2021 10:02-0400 Body height 165.1 cm Chiquis Vargas MD Work Phone: [facility] 06-04-2021 10:02-0400 Body mass index (BMI) [Ratio] 34.12 kg/m2 Chiquis Vargas MD Work Phone: [facility] 06-04-2021 10:02-0400 Body weight 93 kg Chiquis Vargas MD Work Phone: [facility] 05-26-2021 13:02-0400 Body height 165.1 cm Chiquis Vargas MD Work Phone: [facility] 05-26-2021 13:02-0400 Body mass index (BMI) [Ratio] 35.62 kg/m2 Chiquis Vargas MD Work Phone: [facility] 05-26-2021 13:02-0400 Body temperature 98.1 [degF] Chiquis Vargas MD Work Phone: [facility] 05-26-2021 13:02-0400 Body weight 97.1 kg Chiquis Vargas MD Work Phone: [facility] 04-12-2021 11:42-0400 Diastolic blood pressure 95 mm[Hg] Deborah Lamport PA-C Work Phone: [facility] Comment on above: recheck tea/rt 04-12-2021 11:42-0400 Systolic blood pressure 153 mm[Hg] Deborah Lamport PA-C Work Phone: [facility] Comment on above: recheck tea/rt 04-12-2021 11:39-0400 Body height 165.1 cm Deborah Lamport PA-C Work Phone: [facility] 04-12-2021 11:39-0400 Body mass index (BMI) [Ratio] 33.28 kg/m2 Deborah Lamport PA-C Work Phone: [facility] 04-12-2021 11:39-0400 Body temperature 98.01 [degF] Deborah Lamport PA-C Work Phone: [facility] 04-12-2021 11:39-0400 Body weight 90.72 kg Deborah Lamport PA-C Work Phone: [facility] 04-12-2021 11:39-0400 Heart rate 77 /min Deborah Lamport PA-C Work Phone: [facility] 04-12-2021 11:39-0400 Respiratory rate 14 /min Deborah Lamport PA-C Work Phone: [facility] 04-12-2021 11:39-0400 SaO2% (BldA) [Mass fraction] 96 % Deborah Lamport PA-C Work Phone: [facility] 03-03-2021 16:32-0400 BMI (Body Mass Index) 34.08 kg/m2 Dereje Lucianopeggyalberto [facility] 03-03-2021 16:32-0400 Body Temperature 97.3 [degF] [place] [facility] Hogankanu [facility] 03-03-2021 16:32-0400 Body weight 92.9 kg [facility]-03-[facility]21 16:32-0400 BP Diastolic 81 mm[Hg] [facility] 03-03-2021 16:32-0400 BP Systolic 125 mm[Hg] [facility] 16:32-0400 Height 165.1 cm [facility] 03-03-2021 16:32-0400 Pulse (Heart Rate) 80 /min [facility] 03-03-2021 16:32-0400 Pulse Oximetry 96 % [facility] 03-03-2021 16:32-0400 Respiratory Rate 18 /min [facility] 02-17-2021 14:39-0400 BMI (Body Mass Index) 33.78 [facility] 14:39-0400 Body Temperature 97.3 [degF] [facility]-17-[facility]21 14:39-0400 Body weight 92.08 kg [facility] 02-17-2021 14:39-0400 BP Diastolic 84 mm[Hg] [facility] 02-17-2021 14:39-0400 BP Systolic 165 mm[Hg] [facility] 02-17-2021 14:39-0400 Height 165.1 cm [facility] 02-17-2021 14:39-0400 Pulse (Heart Rate) 89 /min [facility] 02-17-2021 14:39-0400 Pulse Oximetry 97 % [facility] [employer] [facility] 08-19-2020 14:47-0400 BMI (Body Mass Index) 33.8 kg/m2 Marion [employer] [facility] 08-19-2020 14:47-0400 Body Temperature 98.49 [degF] Marion [employer] [facility] 08-19-2020 14:47-0400 Body weight 92.13 kg Marion [employer] [facility] 08-19-2020 14:47-0400 BP Diastolic 85 mm[Hg] Marion [employer] [facility] 08-19-2020 14:47-0400 BP Systolic 137 mm[Hg] Marion [employer] [facility] 08-19-2020 14:47-0400 Height 165.1 cm Marion [employer] [facility] 08-19-2020 14:47-0400 Pulse (Heart Rate) 91 /min Marion [employer] [facility] 08-19-2020 14:47-0400 Pulse Oximetry 97 % [facility] [employer] [facility] 08-19-2020 14:33-0400 BMI (Body Mass Index) 33.78 kg/m2 Braden Chaseer [facility] 08-19-2020 14:33-0400 Body Temperature 98.49 [degF] [facility]-19-2020 14:33-0400 Body weight 92.08 kg [facility] [facility] 14:33-0400 BP Diastolic 85 mm[Hg] Elliotnamarie [facility] 08-19-2020 14:33-0400 BP Systolic 137 mm[Hg] [facility] 08-19-2020 14:33-0400 Height 165.1 cm [facility] 08-19-2020 14:33-0400 Pulse (Heart Rate) 91 /min [facility] 08-19-2020 14:33-0400 Pulse Oximetry 97 % [facility] 08-19-2020 14:33-0400 Respiratory Rate 16 /min Braden [facility] 07-22-2020 15:22-0400 BMI (Body Mass Index) 34.51 kg/m2 [facility] Lucianonealberto [facility] 07-22-2020 15:22-0400 Body Temperature 97.9 [degF] [facility] Mustaphamdalberto [facility] 07-22-2020 15:22-0400 Body weight 92.63 kg [facility] Salinarnealberto [facility] 07-22-2020 15:22-0400 BP Diastolic 75 mm[Hg] [facility] Amirnealberto [facility] 07-22-2020 15:22-0400 BP Systolic 111 mm[Hg] [facility] Salinarnealberto [facility] 07-22-2020 15:22-0400 Height 163.8 cm [facility] 07-22-2020 15:22-0400 Pulse (Heart Rate) 86 /min [facility] 07-22-2020 15:22-0400 Pulse Oximetry 96 % Dereje Trejo [facility] 07-22-2020 15:22-0400 Respiratory Rate 15 /min Dereje Trejo [facility] 06-10-2020 08:59-0400 BMI (Body Mass Index) 34.31 kg/m2 Ronit Sinha [facility] 06-10-2020 08:59-0400 Body weight 92.08 kg Ronit Sinha [facility] 06-10-2020 08:59-0400 Height 163.8 cm Ronit [facility] 06-10-2020 08:59-0400 Pulse (Heart Rate) 99 /min [facility] 04-17-2020 09:20-0400 BMI (Body Mass Index) 34.31 kg/m2 Ronit [facility] 04-17-2020 09:20-0400 Body weight 92.08 kg Ronit [facility] 04-17-2020 09:20-0400 Height 163.8 cm Ronit [facility] 01-28-2020 14:05-0500 BMI (Body Mass Index) 34.43 kg/m2 Marion Garrett [facility] 01-28-2020 14:05-0500 Body Temperature 98.8 [degF] Marion Tami [facility] 01-28-2020 14:05-0500 [facility] 01-28-[facility] 14:05-0500 BP Diastolic 83 mm[Hg] Marion Tami [facility] 01-28-2020 14:05-0500 BP Systolic 129 mm[Hg] Marion Tami [facility] 01-28-2020 14:05-0500 [facility] 01-28-2020 14:05-0500 Pulse (Heart Rate) 92 /min Marion Tami [facility] 01-28-2020 14:05-0500 Pulse Oximetry 95 % Marion Garrett [facility] 01-25-2020 13:56-0500 BMI (Body Mass Index) 33.97 kg/m2 [facility] 01-25-2020 13:56-0500 Body Temperature 98.49 [degF] Braden [facility] 01-25-2020 13:56-0500 Body weight 91.17 kg [facility] 01-25-2020 13:56-0500 BP Diastolic 77 mm[Hg] Braden [facility] 01-25-2020 13:56-0500 BP Systolic 122 mm[Hg] Braden [facility] 01-25-2020 13:56-0500 Height 163.8 cm Braden [facility] 01-25-2020 13:56-0500 Pulse (Heart Rate) 99 /[facility] 01-25-2020 13:56-0500 Respiratory Rate 16 /min [facility] 01-12-2020 11:31-0500 BP Diastolic 90 mm[Hg] [facility] Comment on above: [facility] 01-12-2020 11:31-0500 BP Systolic 130 mm[Hg] Shayna [facility] Comment on above: [facility] 01-12-2020 11:06-0500 BMI (Body Mass Index) 33.12 kg/m2 Shayna [facility] 01-12-2020 11:06-0500 Body Temperature 98.4 [degF] Shayna [facility] 01-12-2020 11:06-0500 Body weight 90.27 kg Shayna [facility] 01-12-2020 11:06-0500 Height 165.1 cm Shayna [facility] 01-12-2020 11:06-0500 Pulse (Heart Rate) 84 /min Shayna [facility] 01-12-2020 11:06-0500 Pulse Oximetry 97 % Shayna [facility] 01-12-2020 11:06-0500 Respiratory Rate 16 /min Shayna [facility] 10-12-2019 14:40-0500 BMI (Body Mass Index) 33.61 kg/m2 [place] [facility] Trejo [facility] 10-12-2019 14:40-0500 Body Temperature 98.71 [degF] Luciaaktano Lucianomdalberto [facility] 10-12-2019 14:40-0500 Body weight 91.63 kg [place] [facility] Trejo [facility] 10-12-2019 14:40-0500 BP Diastolic 82 mm[Hg] [facility] Mustaphamdalberto [facility] 10-12-2019 14:40-0500 BP Systolic 123 mm[Hg] [facility] 10-12-2019 14:40-0500 Height 165.1 cm [facility] 10-12-2019 14:40-0500 Pulse (Heart Rate) 73 /min [facility] 10-12-2019 14:40-0500 Pulse Oximetry 95 % [facility] 10-12-2019 14:40-0500 Respiratory Rate 16 /min [facility] 09-25-2019 13:26-0400 Body Temperature 98.8 [degF] [facility] 09-25-2019 13:26-0400 BP Diastolic 88 mm[Hg] [facility] 09-25-2019 13:26-0400 BP Systolic 149 mm[Hg] [facility] 09-25-2019 13:26-0400 Pulse (Heart Rate) 86 /min [facility] 09-25-2019 13:26-0400 Pulse Oximetry 94 % [facility] 09-25-2019 13:24-0400 BMI (Body Mass Index) 33.41 kg/m2 [facility] 09-25-2019 13:24-0400 Body weight 91.08 kg [facility] 09-25-2019 13:24-0400 Height 165.1 cm [facility] 09-20-2019 14:58-0400 BMI (Body Mass Index) 33.48 kg/m2 [facility] 09-20-2019 14:58-0400 Body Temperature 98.8 [degF] [facility] 09-20-2019 14:58-0400 Body weight 91.26 kg [facility] 09-20-2019 14:58-0400 BP Diastolic 84 mm[Hg] [facility] 09-20-2019 14:58-0400 BP Systolic 134 mm[Hg] [facility] 09-20-2019 14:58-0400 Height 165.1 cm [facility] 09-20-2019 14:58-0400 Pulse (Heart Rate) 83 /min [facility] 09-20-2019 14:58-0400 Pulse Oximetry 94 % [facility] 07-09-2019 13:260400 BMI (Body Mass Index) 33.78 kg/m2 [facility] Mustaphamdalberto [facility] 07-09-2019 13:26-0400 Body Temperature 98.6 [degF] [facility] 07-09-2019 13:0400 Body weight 92.08 kg [facility] 07-09-2019 13:26-0400 BP Diastolic 82 mm[Hg] [facility] 07-09-2019 13:26-0400 BP Systolic 117 mm[Hg] [facility] 07-09-2019 13:26-0400 Pulse (Heart Rate) 67 /min [facility] 07-09-2019 13:0400 Pulse Oximetry 95 % [facility] 07-09-2019 13:0400 Respiratory Rate 14 /min [facility] 07-05-2019 10:-0400 BMI (Body Mass Index) 34.11 kg/m2 [facility] 07-05-2019 10:-0400 Body weight 92.99 kg [facility] 07-05-2019 10:01-0400 BP Diastolic 98 mm[Hg] [facility] 07-05-2019 10:01-0400 BP Systolic 159 mm[Hg] [facility] 07-05-2019 10:01-0400 Pulse (Heart Rate) 74 /min [facility] 06-19-2019 13:09-0400 Body Temperature 98.71 [degF] Marion Exten [facility] 06-19-2019 13:09-0400 BP Diastolic 83 mm[Hg] Marion Exten [facility] 06-19-2019 13:09-0400 BP Systolic 133 mm[Hg] Marion Exten [facility] 06-19-2019 13:09-0400 Pulse (Heart Rate) 73 /min Marion Exten [facility] 06-19-2019 13:09-0400 Pulse Oximetry 94 % Marion Exten [facility] 06-19-2019 13:08-0400 BMI (Body Mass Index) 34.01 kg/m2 Marion Exten [facility] 06-19-2019 13:08-0400 Body weight 92.72 kg Marion Garrett [facility] 06-19-2019 13:08-0400 Height 165.1 cm Marion Garrett [facility] 06-11-2019 09:29-0400 BMI (Body Mass Index) 33.61 kg/m2 Braden Gee [facility] 06-11-2019 09:29-0400 Body Temperature 98.6 [degF] Braden Gee [facility] 06-11-2019 09:29-0400 Body weight 91.63 kg Braden Gee [facility] 06-11-2019 09:29-0400 BP Diastolic 94 mm[Hg] [facility] 06-11-2019 09:29-0400 BP Systolic 163 mm[Hg] [facility] 06-11-2019 09:29-0400 Pulse (Heart Rate) 86 /min [facility] 06-11-2019 09:29-0400 Pulse Oximetry 96 % [facility] 06-05-2019 08:22-0400 BMI (Body Mass Index) 34.21 kg/m2 [facility] 06-05-2019 08:22-0400 Body weight 93.26 kg [facility] 06-05-2019 08:22-0400 BP Diastolic 95 mm[Hg] [facility] 06-05-2019 08:22-0400 BP Systolic 154 mm[Hg] [facility] 06-05-2019 08:22-0400 Pulse (Heart Rate) 73 /min [facility] 05-29-2019 08:34-0400 BMI (Body Mass Index) 33.85 kg/m2 [facility] 05-29-2019 08:34-0400 Body weight 92.26 kg [facility] 05-29-2019 08:34-0400 BP Diastolic 98 mm[Hg] [facility] 05-29-2019 08:34-0400 BP Systolic 155 mm[Hg] [facility] 05-29-2019 08:34-0400 Pulse (Heart Rate) 79 /min [facility] 05-16-2019 08:34-0400 BP Diastolic 92 mm[Hg] [facility] 05-16-2019 08:34-0400 BP Systolic 150 mm[Hg] [facility] 05-16-2019 08:34-0400 Pulse (Heart Rate) 67 /min [facility] 05-16-2019 08:31-0400 BMI (Body Mass Index) 34.11 kg/m2 [facility] 05-16-2019 08:31-0400 Weight 92.99 kg [facility] 05-08-2019 08:22-0400 BMI (Body Mass Index) 34.25 kg/m2 [facility] 05-08-2019 08:22-0400 BP Diastolic 101 mm[Hg] [facility] 05-08-2019 08:22-0400 BP Systolic 165 mm[Hg] [facility] 05-08-2019 08:22-0400 Pulse (Heart Rate) 76 /min [facility] 05-08-2019 08:22-0400 Weight 93.35 kg [facility] 04-25-2019 13:19-0400 BMI (Body Mass Index) 33.95 kg/m2 [facility] 04-25-2019 13:19-0400 BP Diastolic 87 mm[Hg] [facility] 04-25-2019 13:19-0400 BP Systolic 147 mm[Hg] [facility] 04-25-2019 13:19-0400 Pulse (Heart Rate) 87 /min [facility] 04-25-2019 13:19-0400 Weight 92.53 kg [facility] 04-17-2019 13:20-0400 BMI (Body Mass Index) 34.23 kg/m2 Marion Exten [facility] 04-17-2019 13:20-0400 Body Temperature 98.6 [degF] Marion Exten [facility] 04-17-2019 13:20-0400 BP Diastolic 85 mm[Hg] Marion Exten [facility] 04-17-2019 13:20-0400 BP Systolic 134 mm[Hg] Marion Exten [facility] 04-17-2019 13:20-0400 Height 165.1 cm Marion Exten [facility] 04-17-2019 13:20-0400 Pulse (Heart Rate) 88 /min Marion Exten [facility] 04-17-2019 13:20-0400 Pulse Oximetry 96 % Marion Exten [facility] 04-17-2019 13:20-0400 Weight 93.31 kg Marion Exten [facility] 04-02-2019 14:47-0400 BMI (Body Mass Index) 34.61 kg/m2 Braden [facility] 04-02-2019 14:47-0400 Body Temperature 99.3 [degF] Joearie [facility] 04-02-2019 14:47-0400 Body weight 94.35 kg Braden [facility] 04-02-2019 14:47-0400 BP Diastolic 85 mm[Hg] [facility] 04-02-2019 14:47-0400 BP Systolic 141 mm[Hg] [facility] 04-02-2019 14:47-0400 Pulse (Heart Rate) 88 /min [facility] 03-16-2019 10:03-0400 BMI (Body Mass Index) 35.33 kg/m2 [facility] 03-16-2019 10:03-0400 Body Temperature 98.2 [degF] Michellee [facility] 03-16-2019 10:03-0400 BP Diastolic 103 mm[Hg] [facility] 03-16-2019 10:03-0400 BP Systolic 158 mm[Hg] [facility] 03-16-2019 10:03-0400 Height 165.1 cm [facility] 03-16-2019 10:03-0400 Pulse (Heart Rate) 71 /min [facility] 03-16-2019 10:03-0400 Pulse Oximetry 96 % [facility] 03-16-2019 10:03-0400 Weight 96.3 kg [facility] 03-14-2019 10:16-0400 BMI (Body Mass Index) 35.43 kg/m2 Marion Garrett [facility] 03-14-2019 10:16-0400 Body Temperature 98.91 [degF] Marion Garrett [facility] 03-14-2019 10:16-0400 BP Diastolic 95 mm[Hg] Marion Garrett [facility] 03-14-2019 10:16-0400 BP Systolic 154 mm[Hg] Marion Garrett [facility] 03-14-2019 10:16-0400 Height 165.1 cm Marion Garrett [facility] 03-14-2019 10:16-0400 Pulse (Heart Rate) 94 /min Marion Garrett [facility] 03-14-2019 10:16-0400 Pulse Oximetry 95 % Marion Garrett [facility] 03-14-2019 10:16-0400 Weight 96.57 kg Marion Garrett [facility] 03-08-2019 15:26-0400 BMI (Body Mass Index) 35.3 kg/m2 [facility] 03-08-2019 15:26-0400 Body Temperature 99 [degF] Braden [facility] 03-08-2019 15:26-0400 Body [facility] 96.21 [facility] 03-08-2019 15:26-0400 BP Diastolic 85 mm[Hg] [facility] 03-08-2019 15:26-0400 BP Systolic 142 mm[Hg] [facility] 03-08-2019 15:26-0400 Height 165.1 cm [facility] 03-08-2019 15:26-0400 Pulse (Heart Rate) 92 /min [facility] 03-08-2019 15:26-0400 Pulse Oximetry 94 % [facility] 02-21-2019 13:50-0400 BMI (Body Mass Index) 36.96 kg/m2 [facility] 02-21-2019 13:50-0400 BP Diastolic 81 mm[Hg] [facility] 02-21-2019 13:50-0400 BP Systolic 128 mm[Hg] [facility] 02-21-2019 13:50-0400 Height 163.8 cm [facility] 02-21-2019 13:50-0400 Pulse (Heart Rate) 83 /min [facility] 02-21-2019 13:50-0400 Pulse Oximetry 99 % [facility] 02-21-2019 13:50-0400 Weight 99.2 kg [facility] 02-15-2019 14:10-0400 BMI (Body Mass Index) 36.33 kg/m2 [facility] 02-15-2019 14:10-0400 Body Temperature 98.4 [degF] [facility] 02-15-2019 14:10-0400 BP Diastolic 83 mm[Hg] [facility] 02-15-2019 14:10-0400 BP Systolic 141 mm[Hg] [facility] 02-15-2019 14:10-0400 Pulse (Heart Rate) 98 /min [facility] 02-15-2019 14:10-0400 Weight 97.52 kg [facility] 02-05-2019 13:44-0400 BMI (Body Mass Index) 36.84 kg/m2 [facility] 02-05-2019 13:44-0400 Body Temperature 98.4 [degF] [facility] 02-05-2019 13:44-0400 Body weight 98.88 kg [facility] 02-05-2019 13:44-0400 BP Diastolic 92 mm[Hg] [facility] 02-05-2019 13:44-0400 BP Systolic 142 mm[Hg] [facility] 02-05-2019 13:44-0400 Pulse (Heart Rate) 101 /min [facility] 01-30-2019 13:32-0500 BMI (Body Mass Index) 37.18 kg/m2 [facility] 01-30-2019 13:32-0500 Body Temperature 98.6 [degF] [facility] 01-30-2019 13:32-0500 BP Diastolic 84 mm[Hg] [facility] 01-30-2019 13:32-0500 BP Systolic 160 mm[Hg] [facility] 01-30-2019 13:32-0500 Height 163.8 cm [facility] 03-05-2019 13:32-0500 Pulse (Heart Rate) 101 /min Braden Gee [facility] 01-30-2019 13:32-0500 Respiratory Rate 16 /min Braden Gee [facility] 01-30-2019 13:32-0500 Weight 99.79 kg Braden Gee [facility] 01-02-2019 16:43-0500 BP Diastolic 98 mm[Hg] [place] [facility] Trejo [facility] 01-02-2019 16:43-0500 BP Systolic 146 mm[Hg] [facility] 01-02-2019 16:18-0500 BMI (Body Mass Index) 36.86 kg/m2 [facility] 01-02-2019 16:18-0500 Body Temperature 98.49 [degF] [facility] 01-02-2019 16:18-0500 Height 164.5 cm [facility] 01-02-2019 16:18-0500 Pulse (Heart Rate) 72 /min [facility] 01-02-2019 16:18-0500 Pulse Oximetry 96 % [facility] 01-02-2019 16:18-0500 Respiratory Rate 16 /min [place] [facility] Lucianomdalberto [facility] 01-02-2019 16:18-0500 Weight 99.7 kg [facility] Encounters Encounter Date Encounter Type Care Provider Facility Start: 10-14-2025 ambulatory Krishna Caraballo Facility: [facility] Start: 10-01-2025 Encounter for other preprocedural examination Krishna Caraballo [facility] Start: 09-12-2025 End: 09-12-[address] Krishna Caraballo MD -Laboratory Work Phone: Start: 09-12-2025 End: 09-12-[address] Krishna Caraballo MD -[facility] Work Phone: Start: 09-12-2025 End: 09-12-2025 ambulatory ELO OGDEN MD Work Phone: -[facility] Start: 09-12-2025 End: 09-12-2025 ambulatory Krihsna Caraballo Facility:[facility] Start: 09-05-2025 End: 09-05-2025 Documentation procedure Stephen Solomon MS, [facility] Comment on above: Results (Genetic Victorina t Results) Start: 09-04-2025 End: 09-04-2025 Follow-up encounter Shannan Calzada [employer] Work Phone: [facility] Comment on above: XR Bone Density DXA Start: 09-03-2025 End: 09-03-2025 ambulatory [facility] Start: 08-30-2025 ambulatory [facility] Start: 08-28-2025 End: 09-01-2025 Clinical Support Shannan Calzada [employer] Work Phone: [facility] Comment on above: Invasive ductal carc inoma of breast, female, right (HCC) (Primary Dx); Family history of pancreatic cancer; Encounter for nonprocreative genetic counseling Start: 08-12-20[facility] Start: 08-02-2025 End: 08-02-2025 ambulatory ELO OGDEN MD Work Phone: -Laboratory Specimen Start: 08-02-2025 End: 08-02-[address] Krishna Caraballo MD -Laboratory Specimen Work Phone: Start: 08-02-2025 End: 08-02-2025 ambulatory Krishna Caraballo Facility:[facility] Start: 07-31-2025 [facility] Start: 07-26-2025 End: 07-26-2025 ambulatory ELO OGDEN MD Work Phone: -Laboratory Start: 07-26-2025 End: 07-26-[address] Krishna Caraballo MD -Laboratory Work Phone: Start: 07-26-2025 End: 07-26-[address] Krishna Caraballo MD -[facility] Work Phone: Start: 07-26-2025 End: 07-26-2025 ambulatory LEO OGDEN MD Work Phone: -[facility] Start: 07-26-2025 End: 07-26-2025 ambulatory Krishna Caraballo Facility:[facility] Start: 07-01-2025 End: 07-01-2025 Office outpatient visit 40 minutes Robbie Santo MD Work Phone: [facility] Comment on above: Hyperparathyroidism (HCC) (Primary Dx) Start: 07-01-2025 End: 07-01-2025 ambulatory [facility] Ambulatory Start: 07-01-2025 ambulatory [facility] Start: 06-06-2025 End: 06-06-2025 ambulatory [facility] Start: 05-30-2025 End: 05-30-2025 ambulatory [facility] Start: 05-27-2025 End: 05-27-2025 Office outpatient visit 25 minutes Elo Ogden MD Work Phone: [facility] Comment on above: Hyperparathyroidism (HCC) (Primary Dx); Hypothyroidism, unspecified type Start: 05-27-2025 End: 05-27-2025 ambulatory ELO OGDEN [facility] Ambulatory Start: 05-21-2025 End: 05-21-2025 Phys/qhp telephone evaluation 11-20 min Elo Ogden MD Work Phone: [facility] Comment on above: Hypothyroidism, unsp ecified type (Primary Dx) Start: 05-21-2025 End: 05-25-2025 Orders Only Shannan Edmondfield WEINSTEIN Work Phone: [facility] Comment on above: Hypercalcemia (Prima ry Dx) Invasive ductal carc inoma of breast, female, right (HCC) (Primary Dx) Start: 05-20-2025 End: 05-21-2025 Follow-up encounter Elo Ogden MD Work Phone: [facility] Comment on above: Comprehensive Met[employer] lic Panel, B12/Folate, Vitamin D, Total, 25-OH, Additional followed-up results: 2 Start: 05-20-2025 End: 05-20-2025 Office outpatient visit 40 minutes hSannan Calzada [facility] Work Phone: [facility] Comment on above: Fatigue, unspecified type (Primary Dx); Asymptomatic menopause; Aromatase inhibitor use; History of breast cancer; Invasive ductal carcinoma of breast, female, right (HCC); Family history of pancreatic cancer; Screening mammogram for breast cancer Start: 05-20-2025 End: 05-20-2025 ambulatory SHANNAN CALZADA [facility] Ambulatory Start: 02-25-2025 End: 04-27-2025 Follow-up encounter Elo Ogden MD Work Phone: [facility] Comment on above: Mammography Screenin g Geovanny Bilateral Start: 02-25-2025 End: 02-25-2025 ambulatory ELOMISSY CAMEJO [facility] Start: 12-05-2024 End: 12-09-2024 Clinical Support Gwen Chang Work Phone: [facility] Comment on above: Sensorineural hearin g loss, bilateral (Primary Dx); Ear ringing, right Start: 12-05-2024 End: 12-05-2024 Office outpatient new 45 minutes Elo Ogden MD Work Phone: [facility] Comment on above: Tinnitus of both ear s (Primary Dx); SNHL (sensory-neural hearing loss), asymmetrical; Ear ringing, right; Excessive cerumen in right ear canal Start: 12-05-2024 End: 12-05-2024 [facility] Start: 10-24-2024 End: 10-24-2024 Periodic preventive med est patient 40-64yrs Elo Ogden MD Work Phone: [facility] Comment on above: Type 2 diabetes gopi itus without complication, without long- term current use of insulin (HCC) (Primary Dx); Essential hypertension; Gastroesophageal reflux disease without esophagitis; Encounter for screening mammogram for malignant neoplasm of breast; Ear ringing, right Start: 10-24-2024 End: 10-24-2024 ambulatory ELO OGDEN [facility] Ambulatory Start: 09-12-2024 End: 09-12-2024 Orders Only Camelia Rao RN [facility] Start: 06-14-2024 End: 06-14-2024 Office outpatient visit 10 minutes Shannan Cevallos PA-C Work Phone: [facility] Comment on above: Basal cell carcinoma (BCC) of skin of left lower extremity including hip Start: 06-14-2024 End: 06-14-2024 ambulatory [facility] Start: 05-25-2024 End: 05-25-2024 Refill Elo Ogden MD Work Phone: [facility] Comment on above: Type 2 diabetes gopi itus without complication, without long- term current use of insulin (HCC) Start: 05-14-2024 End: 05-14-2024 Office outpatient visit 25 minutes Shannan Calzada [facility] Work Phone: [facility] Comment on above: Invasive ductal carc inoma of breast, female, right (HCC) (Primary Dx); Type 2 diabetes mellitus without complication, without long-term current use of insulin (HCC); Essential hypertension Start: 05-01-2024 End: 05-01-2024 Office outpatient visit 25 minutes Shannan Cevallos PA-C Work Phone: [facility] Comment on above: Encounter for skin c are (Primary Dx); History of nonmelanoma skin cancer; Solar lentigo; Seborrheic keratosis; Multiple benign melanocytic nevi of both upper extremities, both lower extremities, and trunk; Hemangioma of skin; Dermatofibroma; Neoplasm of uncertain behavior of skin; Actinic keratosis Start: 05-01-2024 End: 05-01-2024 ambulatory [facility] Start: 12-17-2023 Refill Elo Ogden MD Work Phone: [facility] Comment on above: Type 2 diabetes gopi itus without complication, without long- term current use of insulin (HCC); Gastroesophageal reflux disease without esophagitis; Essential hypertension Start: 11-14-2023 End: 11-14-2023 Office outpatient visit 25 minutes Shannan Calzada JS Work Phone: [facility] Comment on above: Invasive ductal carc inoma of breast, female, right (HCC) (Primary Dx); Essential hypertension; Type 2 diabetes mellitus without complication, without long-term current use of insulin (HCC) Start: 11-10-2023 Telephone encounter Luna Gustafson MA [facility] Start: 10-27-2023 End: 10-27-2023 Office outpatient new 30 minutes Shannan Cevallos PA-C Work Phone: [facility] Comment on above: Neoplasm of uncertai n behavior of skin (Primary Dx); Actinic keratoses; Multiple benign nevi; Solar lentigo; Seborrheic keratosis; History of nonmelanoma skin cancer Start: 10-27-2023 End: 10-27-2023 ambulatory SHANNAN BAN [facility] Start: 10-03-2023 End: 10-03-2023 Patient encounter status Elo Ogden MD Work Phone: [facility] Start: 10-03-2023 End: 10-03-2023 Periodic preventive med est patient 40-64yrs Elo Ogden MD Work Phone: [facility] Comment on above: Type 2 diabetes gopi itus without complication, without long- term current use of insulin (HCC) (Primary Dx); Plantar fasciitis; Pap smear for cervical cancer screening; Invasive ductal carcinoma of breast, female, right (HCC); Healthcare maintenance Start: 09-07-2023 End: 09-07-2023 ambulatory Chair 1 Oncology Infusion [facility] Start: 09-07-2023 End: 09-07-2023 Patient encounter procedure Pratik Riley MD Work Phone: [facility] Comment on above: Invasive ductal carc inoma of breast, female, right (HCC) (Primary Dx) Start: 08-31-2023 Orders Only Marion estevez MD Work Phone: [facility] Comment on above: Encounter for screen ing for osteoporosis (Primary Dx); Invasive ductal carcinoma of breast, female, right (HCC) Start: 08-18-2023 ambulatory SELF SELF [facility] Start: 08-18-2023 End: 08-18-2023 Office outpatient new 30 minutes Oh Price INTERCHANGE AGENT-BEAUTY SALES ADVISOR Work Phone: [facility] Comment on above: Acute non-recurrent sinusitis, unspecified location (Primary Dx); Acute cough Start: 04-06-2023 Documentation procedure Alden Escobar LPN [facility] Start: 03-24-2023 End: 03-24-2023 Office outpatient visit 25 minutes Elo Ogden MD Work Phone: [facility] Comment on above: Type 2 diabetes gopi itus without complication, without long- term current use of insulin (HCC) (Primary Dx); Right elbow pain; Mixed hyperlipidemia; Gastroesophageal reflux disease without esophagitis; Essential hypertension; Encounter for immunization Start: 03-09-2023 End: 03-09-2023 ambulatory Chair 1 Oncology Infusion [facility] Start: 03-09-2023 End: 03-09-2023 Patient encounter procedure Pratik Riley MD Work Phone: [facility] Comment on above: Invasive ductal carc inoma of breast, female, right (HCC) (Primary Dx) Start: 03-03-2023 Refill Marion estevez MD Work Phone: [facility] Comment on above: Invasive ductal carc inoma of breast, female, right (HCC) Start: 01-24-2023 Refill Elo Ogden MD Work Phone: [facility] Comment on above: Type 2 diabetes gopi itus without complication, without long- term current use of insulin (HCC) Start: 12-21-2022 End: 12-21-2022 Office outpatient visit 25 minutes Elo Ogden MD Work Phone: [facility] Comment on above: Type 2 diabetes gopi itus without complication, without long- term current use of insulin (HCC) (Primary Dx); Gastroesophageal reflux disease without esophagitis Start: 11-30-2022 Orders Only Sung Vaca MD Work Phone: [facility] Comment on above: Type 2 diabetes gopi itus without complication, without long- term current use of insulin (HCC) Start: 11-15-2022 End: 11-15-2022 Office outpatient visit 25 minutes Marion Garrett MD Work Phone: [facility] Comment on above: Invasive ductal carc inoma of breast, female, right (HCC) (Primary Dx); Essential hypertension; Arthralgia, unspecified joint Start: 09-24-2022 Documentation procedure Alden Escobar LPN [facility] Start: 09-24-2022 End: 09-24-2022 Patient encounter status Elo Ogden MD Work Phone: [facility] Start: 09-24-2022 End: 09-24-2022 Periodic preventive med est patient 40-64yrs Elo Ogden MD Work Phone: [facility] Comment on above: Type 2 diabetes gopi itus without complication, without long- term current use of insulin (HCC) (Primary Dx); Essential hypertension; Healthcare maintenance; Invasive ductal carcinoma of breast, female, right (HCC) Start: 09-07-2022 Orders Only Marion estevez MD Work Phone: [facility] Start: 08-26-2022 End: 08-26-2022 Postop follow up visit related to original px Braden Gee MD Work Phone: [facility] Comment on above: S/P laparoscopic cho lecystectomy (Primary Dx) Start: 08-10-2022 End: 08-10-2022 Office outpatient new 45 minutes Elo Ogden MD Work Phone: [facility] Comment on above: Type 2 diabetes gopi itus without complication, without long- term current use of insulin (HCC) (Primary Dx); Essential hypertension; PCO (polycystic ovaries); Invasive ductal carcinoma of breast, female, right (HCC); Calculus of gallbladder without cholecystitis without obstruction Start: 08-09-2022 Preprocedural examin ation done Elo Ogden MD Work Phone: [facility] Start: 07-30-2022 End: 07-30-2022 Office outpatient visit 15 minutes Dereje Trejo MD Work Phone: [facility] Comment on above: Nausea and vomiting, unspecified vomiting type; Diarrhea, unspecified type; Calculus of gallbladder without cholecystitis without obstruction Start: 07-19-2022 End: 07-19-2022 Office outpatient visit 25 minutes Dereje Trejo MD Work Phone: [facility] Comment on above: Nausea and vomiting, unspecified vomiting type (Primary Dx); Diarrhea, unspecified type; Calculus of gallbladder without cholecystitis without obstruction Start: 06-08-2022 End: 06-08-2022 ambulatory [facility] Start: 06-08-2022 End: 06-08-2022 Office outpatient visit 15 minutes [facility] Work Phone: [facility] Comment on above: Non-recurrent acute suppurative otitis media of left ear without spontaneous rupture of tympanic membrane (Primary Dx); Elevated blood pressure reading with diagnosis of hypertension Start: 05-03-2022 Refill Dereje Trejo MD Work Phone: [facility] Start: 04-25-2022 Refill Dereje Trejo MD Work Phone: [facility] Start: 03-10-2022 End: 03-10-2022 ambulatory Chair 1 Oncology Infusion [facility] Start: 03-10-2022 End: 03-10-2022 Patient encounter procedure Pratik Riley MD Work Phone: [facility] Comment on above: Invasive ductal carc inoma of breast, female, right (HCC) (Primary Dx) Start: 02-24-2022 Selenaill Marion estevez MD Work Phone: [facility] Comment on above: Invasive ductal carc inoma of breast, female, right (HCC) Start: 02-22-2022 End: 02-22-2022 Office outpatient visit 25 minutes Marion Garrett MD Work Phone: [facility] Comment on above: Invasive ductal carc inoma of breast, female, right (HCC) (Primary Dx); Type 2 diabetes mellitus without complication, without long-term current use of insulin (HCC); Essential hypertension Start: 02-03-2022 End: 02-03-2022 Office outpatient visit 25 minutes Dereje Trejo MD Work Phone: [facility] Comment on above: Type 2 diabetes gopi itus without complication, without long- term current use of insulin (HCC) (Primary Dx); Essential hypertension; Gastroesophageal reflux disease without esophagitis; Vitamin D deficiency Start: 11-02-2021 End: 11-02-2021 Office outpatient visit 25 minutes Dereje Trejo MD Work Phone: [facility] Comment on above: Type 2 diabetes gopi itus without complication, without long- term current use of insulin (HCC) (Primary Dx); Mixed hyperlipidemia; Essential hypertension Start: 09-03-2021 Coordination of care plan Becca armas RN [facility] Start: 09-01-2021 Orders Only Tiago Pool RPh,PharmD [facility] Start: 08-26-2021 End: 08-26-2021 Office outpatient visit 40 minutes Pratik Riley MD Work Phone: [facility] Comment on above: Invasive ductal carc inoma of breast, female, right (HCC) (Primary Dx) Start: 07-29-2021 Orders Only Mikki Sarmiento BEAUTY SALES ADVISOR Work Phone: [facility] Comment on above: Lab test positive fo r detection of COVID-19 virus (Primary Dx) Start: 07-26-2021 End: 07-26-2021 ambulatory [facility] PRABHAKAR [facility] Start: 07-26-2021 End: 07-26-2021 Office outpatient visit 15 minutes [facility] Prabhakar [facility] BEAUTY SALES ADVISOR Work Phone: [facility] Comment on above: Exposure to 2018 el coronavirus (Primary Dx); Fever, unspecified fever cause Start: 06-25-2021 End: 06-25-2021 Office outpatient visit 25 minutes Dereje Trejo MD Work Phone: [facility] Comment on above: Type 2 diabetes gopi itus without complication, without long- term current use of insulin (HCC) (Primary Dx); Essential hypertension; Vitamin D deficiency; Hypercalcemia Start: 06-19-2021 End: 06-19-2021 Orders Only Dereje Trejo MD Work Phone: [facility] Comment on above: Vitamin D deficiency (Primary Dx); Type 2 diabetes mellitus without complication, without long-term current use of insulin (HCC) Start: 06-18-2021 End: 06-18-2021 Postop follow up visit related to original px Marlyn Nelson PA-C Work Phone: [facility] Comment on above: S/P trigger finger r elease- Rt thumb (Primary Dx) Start: 06-04-2021 End: 06-04-2021 Subsequent hospital visit by physician Chiquis Vargas MD Work Phone: [facility] Comment on above: Trigger thumb of rig ht hand Start: 05-26-2021 End: 05-26-2021 Office outpatient visit 25 minutes Chiquis Vargas MD Work Phone: [facility] Comment on above: Thumb pain, right (P rimary Dx) Start: 04-12-2021 End: 04-12-2021 Office outpatient new 30 minutes Deborah Stokes PA-C Work Phone: [facility] Comment on above: Suspected COVID-19 v irus infection (Primary Dx); Upper respiratory tract infection, unspecified type; Cough; Acute non-recurrent maxillary sinusitis; Sore throat Start: 04-06-2021 ambulatory LYN [facility] Start: 04-06-2021 End: 04-06-2021 Office outpatient visit 10 minutes Lyn Jamison MD Work Phone: [facility] Comment on above: Trigger finger of ri ght thumb (Primary Dx) Start: 03-24-2021 End: 03-24-2021 Office outpatient visit 10 minutes Ronit Sinha CNP Work Phone: [facility] Comment on above: Trigger finger of le ft thumb (Primary Dx); Trigger thumb, right thumb Start: 03-05-2021 End: 03-05-2021 Orders Only Dereje Trejo Work Phone: [facility] Start: 03-03-2021 End: 03-03-2021 Office outpatient visit 25 minutes Dereje Trejo Work Phone: [facility] Comment on above: Type 2 diabetes gopi itus without complication, without long- term current use of insulin (HCC) (Primary Dx); Mixed hyperlipidemia; Hypercalcemia; Vitamin D deficiency Start: 02-26-2021 End: 02-26-2021 Refill Dereje Trejo Work Phone: [facility] Start: 02-23-2021 End: 02-23-2021 Subsequent hospital visit by physician Marion Garrett Work Phone: [facility] Comment on above: Arrived Start: 02-17-2021 End: 02-17-2021 Office outpatient visit 15 minutes Braden Gee Work Phone: [facility] Comment on above: Invasive ductal carc inoma of breast, female, right (HCC) (Primary Dx) Start: 02-17-2021 End: 02-17-2021 Office outpatient visit 25 minutes Marion Garrett Work Phone: [facility] Comment on above: Invasive ductal carc inoma of breast, female, right (HCC) (Primary Dx); Erythema of breast; Neck swelling Start: 02-04-2021 End: 02-04-2021 Orders Only Caryn Salascheli Work Phone: [facility] [place] Start: 01-22-2021 End: 01-22-2021 Subsequent hospital visit by physician Marion Garrett Work Phone: [facility] Comment on above: Invasive ductal carc inoma of breast, female, right (HCC) Start: 12-09-2020 End: 12-09-2020 Refill Viri Foreman [facility] Comment on above: Invasive ductal carc inoma of breast, female, right (HCC) Start: 08-26-2020 End: 08-26-2020 Subsequent hospital visit by physician Braden Gee Work Phone: [facility] Comment on above: Axillary fullness Start: 08-19-2020 End: 08-19-2020 Office outpatient visit 25 minutes Marion Garrett Work Phone: [facility] Comment on above: Invasive ductal carc inoma of breast, female, right (HCC) (Primary Dx); Trigger finger, unspecified finger, unspecified laterality; Type 2 diabetes mellitus without complication, without long-term current use of insulin (HCC) Start: 08-19-2020 End: 08-19-2020 Office outpatient visit 15 minutes ElliotKuldatmirna Gee Work Phone: [facility] Comment on above: Axillary fullness (P rimary Dx); Invasive ductal carcinoma of breast, female, right (HCC) Start: 07-22-2020 End: 07-22-2020 Office outpatient visit 25 minutes Dereje Trejo Work Phone: [facility] Comment on above: Type 2 diabetes gopi itus without complication, without long- term current use of insulin (HCC) (Primary Dx); Mixed hyperlipidemia; NAFL (nonalcoholic fatty liver); GERD without esophagitis Start: 06-10-2020 End: 06-10-2020 Office outpatient visit 10 minutes Ronit Santana Bharath Work Phone: [facility] Comment on above: Trigger finger of le ft thumb (Primary Dx) Start: 04-17-2020 End: 04-17-2020 Office outpatient new 20 minutes Ronit Dunnvadim EdwardsBharath Work Phone: [facility] Comment on above: Trigger thumb of rig ht hand (Primary Dx) Start: 01-28-2020 End: 01-28-2020 Office outpatient visit 25 minutes Marion Garrett Work Phone: [facility] Comment on above: Invasive ductal carc inoma of breast, female, right (HCC) (Primary Dx); Low libido; Type 2 diabetes mellitus without complication, without long-term current use of insulin ([facility]) Start: 01-25-2020 End: 01-25-2020 Office outpatient visit 15 minutes Braden Gee Work Phone: [facility] Comment on above: Invasive ductal carc inoma of breast, female, right (HCC) (Primary Dx) Start: 01-22-2020 End: 01-22-2020 Subsequent hospital visit by physician Braden Gee Work Phone: [facility] Comment on above: Invasive ductal carc inoma of breast, female, right (HCC) Start: 01-12-2020 End: 01-12-2020 Office outpatient visit 15 minutes Shayna Alcazar Work Phone: [facility] Comment on above: Bilateral otitis med ia, unspecified otitis media type (Primary Dx); Upper respiratory tract infection, unspecified type; Flu-like symptoms; Elevated blood pressure reading in office with diagnosis of hypertension Start: 10-12-2019 End: 10-12-2019 Office outpatient visit 25 minutes Dereje Trejo Work Phone: [facility] Comment on above: Type 2 diabetes gopi itus without complication, without long- term current use of insulin (HCC) (Primary Dx); Essential hypertension; Invasive ductal carcinoma of breast, female, right (HCC); Vitamin D deficiency Start: 10-10-2019 End: 10-10-2019 Coordination of care plan Camelia Domínguez [facility] Start: 09-25-2019 End: 09-25-2019 Office outpatient visit 25 minutes Marion Garrett Work Phone: [facility] Comment on above: Invasive ductal carc inoma of breast, female, right (HCC) (Primary Dx); Essential hypertension Start: 09-20-2019 End: 09-20-2019 Office outpatient visit 40 minutes Shannan Calzada Work Phone: [facility] Comment on above: Invasive ductal carc inoma of breast, female, right (HCC) (Primary Dx); Counseling on health promotion and disease prevention Start: 08-16-2019 End: 08-16-2019 Subsequent hospital visit by physician Marion Garrett Work Phone: [facility] Comment on above: Invasive ductal carc inoma of breast, female, right (HCC) Start: 07-09-2019 End: 07-09-2019 Office outpatient visit 25 minutes Dereje Trejo Work Phone: [facility] Comment on above: Essential hypertensi on (Primary Dx); Mixed hyperlipidemia; GERD without esophagitis Start: 07-05-2019 End: 07-05-2019 Patient encounter procedure Leroy Ayala Work Phone: [facility] Comment on above: Arrived Start: 06-19-2019 End: 06-19-2019 Office outpatient visit 25 minutes Marion Garrett Work Phone: [facility] Comment on above: Invasive ductal carc inoma of breast, female, right (HCC) (Primary Dx) Start: 06-11-2019 End: 06-11-2019 Office outpatient visit 15 minutes Braden Gee Work Phone: [facility] Comment on above: Invasive ductal carc inoma of breast, female, right (HCC) (Primary Dx) Start: 06-05-2019 End: 06-05-2019 Coordination of care plan Izabella Lopez Patient Naviga tor Start: 06-05-2019 End: 06-05-2019 Patient encounter procedure Leno Pelletier Work Phone: [facility] Start: 05-29-2019 End: 05-29-2019 Patient encounter procedure Leno Pelletier Work Phone: [facility] Comment on above: Invasive ductal carc inoma of breast, female, right (HCC) (Primary Dx) Start: 05-16-2019 End: 05-16-2019 Patient encounter procedure Leno Pelletier Work Phone: [facility] Start: 05-08-2019 End: 05-08-2019 Patient encounter procedure Dereje Trejo Work Phone: [facility] Start: 04-25-2019 End: 04-25-2019 Patient encounter procedure Marion Garrett Work Phone: [facility] Comment on above: Invasive ductal carc inoma of breast, female, right (HCC) Start: 04-17-2019 End: 04-17-2019 Office outpatient visit 25 minutes Marion Garrett Work Phone: [facility] Comment on above: Invasive ductal carc inoma of breast, female, right (HCC) (Primary Dx); Type 2 diabetes mellitus without complication, without long-term current use of insulin (HCC); Essential hypertension Start: 04-10-2019 End: 04-10-2019 Coordination of care plan Izabella Lopez Patient Anitaa tor Start: 04-09-2019 End: 04-09-2019 Subsequent hospital visit by physician Dereje Trejo Work Phone: [facility] Comment on above: Rib pain on right si de Start: 04-06-2019 End: 04-06-2019 Office outpatient visit 25 minutes Dereje Trejo MD Work Phone: [facility] Comment on above: Gastroenteritis (Regina edgar Dx); Rib pain on right side Start: 04-04-2019 End: 04-04-2019 Office outpatient visit 25 minutes Dereje Trejo Work Phone: [facility] Comment on above: Type 2 diabetes gopi itus without complication, without long- term current use of insulin (HCC) (Primary Dx); Essential hypertension; GERD without esophagitis; Invasive ductal carcinoma of breast, female, right (HCC) Start: 04-02-2019 End: 04-02-2019 Postop follow up visit related to original px Braden Gee Work Phone: [facility] Comment on above: Post-operative pain (Primary Dx) Start: 03-27-2019 End: 03-27-2019 Coordination of care plan Izabella Lopez Patient Naviga tor Start: 03-16-2019 End: 03-16-2019 Postop follow up visit related to original px Michellee Respiratory Medicine Physician Work Phone: [facility] Comment on above: Invasive ductal carc inoma of breast, female, right (HCC) (Primary Dx) Start: 03-14-2019 End: 03-14-2019 Coordination of care plan Izabella Lopez Patient Naviga tor Start: 03-14-2019 End: 03-14-2019 Office consultation new/estab patient 60 min Marion Garrett Work Phone: [facility] Comment on above: Invasive ductal carc inoma of breast, female, right (HCC) (Primary Dx); Mixed hyperlipidemia; Elevated blood-pressure reading, without diagnosis of hypertension Start: 03-08-2019 End: 03-08-2019 Postop follow up visit related to original px Braden Gee Work Phone: [facility] Comment on above: Invasive ductal carc inoma of breast, female, right (HCC) (Primary Dx) Start: 02-27-2019 End: 02-27-2019 Patient encounter procedure Braden Respiratory Medicine Physician Work Phone: [facility] Comment on above: Malignant neoplasm o f right female breast, unspecified estrogen receptor status, unspecified site of breast (HCC) Start: 02-27-2019 End: 02-27-2019 Subsequent hospital visit by physician Braden Gee Work Phone: [facility] Comment on above: Malignant neoplasm o f right female breast, unspecified estrogen receptor status, unspecified site of breast (HCC); Breast cancer (HCC) Start: 02-21-2019 End: 02-21-2019 Coordination of care plan Izabella Lopez Patient Navigramses jones Start: 02-21-2019 End: 02-21-2019 Patient encounter procedure Braden Gee Work Phone: [facility] Comment on above: Malignant neoplasm o f right female breast, unspecified estrogen receptor status, unspecified site of breast (HCC) Start: 02-15-2019 End: 02-15-2019 Office outpatient visit 25 minutes Braden Respiratory Medicine Physician Work Phone: [facility] Comment on above: Invasive ductal carc inoma of breast, female, right (HCC) (Primary Dx) Start: 02-05-2019 End: 02-05-2019 Office outpatient visit 25 minutes Braden Respiratory Medicine Physician Work Phone: [facility] Comment on above: Malignant neoplasm o f right female breast, unspecified estrogen receptor status, unspecified site of breast (HCC) (Primary Dx) Start: 01-31-2019 Patient encounter procedure Keyon Gee Facility:[facility] Start: 01-31-2019 End: 01-31-2019 Patient encounter procedure Braden Gee Work Phone: [facility] Start: 01-30-2019 End: 01-30-2019 Office outpatient new 30 minutes Braden Respiratory Medicine Physician Work Phone: [facility] Comment on above: Abnormal mammogram o f right breast (Primary Dx) Start: 01-24-2019 Patient encounter procedure Dereje Trejo [facility] Start: 01-24-2019 End: 01-24-2019 Subsequent hospital visit by physician Dereje Trejo Work Phone: [facility] Start: 01-19-2019 Patient encounter procedure Dereje Trejo [facility] Start: 01-19-2019 End: 01-19-2019 Patient encounter procedure Dereje Trejo Work Phone: [facility] Start: 01-02-2019 End: 01-02-2019 Office outpatient visit 25 minutes Luciabasil Vlad Trejo Work Phone: [facility] Comment on above: Type 2 diabetes gopi itus without complication, without long- term current use of insulin (HCC) (Primary Dx); Mixed hyperlipidemia; NAFL (nonalcoholic fatty liver); Elevated blood-pressure reading, without diagnosis of hypertension; Need for hepatitis C screening test; Breast cancer screening Start: 05-05-2018 End: 05-06-2018 Ambulatory Adin Ulloa [facility] Facility:[facility] Start: 11-30-2017 Patient encounter status Fredi Vargas MD Work Phone: [facility] Procedures Date Procedure Procedure Detail Performing Clinician Start: 09-12-2025 Parathyroid hormone measurement ELO OGDEN MD Work Phone: Start: 09-12-2025 Vitamin D, 25-hydrox y measurement ELO OGDEN MD Work Phone: Comment on above: Vitamin D StatusDefi ciency: <20 ng/mL (50nmol/L)Insufficiency: 20-30 ng/mL (50-75 nmol/L)Sufficiency: 30-100 ng/mL (75-250 nmol/L)Toxicity: >100 ng/mL (>250 nmol/L) Start: 08-28-2025 EXT ONCOLOGY GENETICS J ray Solomon MS, [facility] Start: 07-26-2025 Parathyroid hormone measurement ELO OGDEN MD Work Phone: Start: 07-26-2025 Vitamin D, 25-hydrox y measurement ELO OGDEN MD Work Phone: Comment on above: Vitamin D StatusDefi ciency: <20 ng/mL (50nmol/L)Insufficiency: 20-30 ng/mL (50-75 nmol/L)Sufficiency: 30-100 ng/mL (75-250 nmol/L)Toxicity: >100 ng/mL (>250 nmol/L) Start: 02-25-2025 Mammography Elo nevarez MD Work Phone: Start: 10-15-2024 Lipid 1996 panel - S kevin or Plasma Elo Ogden MD Work Phone: Start: 05-01-2024 CRYOTHERAPY SKIN LESION Shannan Currie Ban PA-C Work Phone: Start: 05-01-2024 End: 05-01-2024 SKIN / NAIL BIOPSY Shannan Currie Ban PA-C Work Phone: Start: 01-31-2024 Mammography Shannan Bello ield [employer] Work Phone: Start: 10-27-2023 CRYOTHERAPY SKIN LESION Shannan Currie Ban PA-C Work Phone: Start: 10-27-2023 End: 10-27-2023 SKIN BIOPSY Shannan Currie Ban PA-C Work Phone: Start: 10-03-2023 3 comp foot exam completed Elo Ogden MD Work Phone: Start: 10-03-2023 Microscopic observat ion [Identifier] in Cervix by Cyto stain Shannan Ban PA-C Work Phone: Start: 09-27-2023 Lipid 1996 panel - S kevin or Plasma Elo Ogden MD Work Phone: Start: 09-27-2023 Microalbumin [Mass/volume] in Urine by Test strip Elo Ogden MD Work Phone: Start: 03-22-2023 Lipid 1996 panel - S kevin or Plasma Elo Ogden MD Work Phone: Start: 03-22-2023 Microalbumin [Mass/volume] in Urine by Test strip Elo Ogden MD Work Phone: Start: 01-27-2023 Mammography Marion Garrett MD Work Phone: Start: 09-24-2022 3 comp foot exam completed Elo Ogden MD Work Phone: Start: 08-26-2022 History of cholecystectomy S/P laparoscopic cholecystectomy Braden Gee MD Work Phone: Start: 08-10-2022 Adult depression screening assessment Elo Ogden MD Work Phone: Start: 06-24-2022 Ophthalmic examinati on and evaluation Dereje Trejo MD Work Phone: Start: 01-27-2022 Lipid 1995 panel - S kevin or Plasma Dereje Trejo MD Work Phone: Start: 01-25-2022 Mammography Dereje bobby MD Work Phone: Start: 09-30-2021 Adult depression screening assessment Dereje Trejo MD Work Phone: Start: 07-06-2021 Ophthalmic examinati on and evaluation Damon Coe CNP Work Phone: Start: 06-24-2021 Ophthalmic examinati on and evaluation Dereje Trejo MD Work Phone: Start: 06-23-2021 Lipid 1996 panel - S kevin or Plasma Dereje Trejo MD Work Phone: Start: 06-04-2021 Gluc bld gluc mntr d ev cleared fda spec home use Chiquis Vargas MD Work Phone: Start: 04-12-2021 COVID-19/INFLUENZA O RDER ALGORITHM Deborah Stokes PA-C Work Phone: Start: 04-12-2021 Sars-cov-2 detection by dna/rna Deborah Stokes PA-C Work Phone: Start: 03-24-2021 Injection 1 tendon sheath/ligament aponeurosis Ronit Sinha [employer] Work Phone: Start: 03-04-2021 Lipid 1996 panel - S kevin or Plasma Dereje Trejo Start: 03-04-2021 Microalbumin [Mass/volume] in Urine by Test strip Dereje Trejo Start: 02-10-2021 Lipid 1996 panel - S kevin or Plasma Dereje Trejo Start: 01-22-2021 Mammography Caryn ruffin Start: 09-26-2020 Microscopic observat ion [Identifier] in Cervix by Cyto stain Viri Foreman Start: 08-26-2020 Us lmtd joint/oth no nvasc xtr strux r-t w/img Donnamarie Respiratory Medicine Physician Work Phone: Start: 07-07-2020 Lipid 1996 panel - S kevin or Plasma Dereje Trejo Start: 06-27-2020 Adult depression screening assessment Dereje Trejo Start: 06-27-2020 Microscopic observat ion [Identifier] in Cervix by Cyto stain Dereje Trejo Start: 05-28-2020 Ophthalmic examinati on and evaluation Dereje Trejo Start: 04-17-2020 Injection 1 tendon sheath/ligament aponeurosis Ronit Sinha Work Phone: Start: 02-06-2020 Lipid 1996 panel - S kevin or Plasma Ronit Sinha Start: 01-22-2020 MG Breast - bilatera l diagnostic Donnamarie Respiratory Medicine Physician Work Phone: Start: 01-22-2020 Mammography Donnamarie Respiratory Medicine Physician Start: 10-12-2019 3 comp foot exam completed Dereje Trejo Start: 06-29-2019 Lipid 1996 panel - S kevin or Plasma Leroy Ayala Start: 06-05-2019 RADIATION THERAPY - UNVERIFIED DATA IMPORTED FROM [facility] Treatment Results Radiation Oncology Start: 05-04-2019 Ophthalmic examinati on and evaluation Leno Pelletier Start: 03-28-2019 Microalbumin [Mass/volume] in Urine by Test strip Dereje Trejo Start: 02-27-2019 Lymphatics & lymph n odes imaging Donnamarie Respiratory Medicine Physician Work Phone: Start: 02-27-2019 Perq device placemen t breast loc 1st les w/gdnce Donnamarie Respiratory Medicine Physician Work Phone: Start: 02-27-2019 Specimen mammography Do nnamarie Respiratory Medicine Physician Work Phone: Start: 02-27-2019 Mammography Donnamarie Respiratory Medicine Physician Start: 02-21-2019 Basic metabolic 2000 panel - Serum or Plasma DonKuldatarie Respiratory Medicine Physician Work Phone: Start: 02-21-2019 Complete blood count with white cell differential, automated [facility]Med[facility]ense Respiratory Medicine Physician Work Phone: Start: 02-21-2019 Complete blood count with white cell differential, manual [facility] Respiratory Medicine Physician Work Phone: Start: 02-21-2019 INR in Platelet poor plasma by Coagulation assay [employer] Work Phone: Start: 02-06-2019 Mammography Donnamarie Respiratory Medicine Physician Start: 01-31-2019 Mammography Donnamarie Respiratory Medicine Physician Start: 01-19-2019 Mammography Donnamarie Respiratory Medicine Physician Start: 12-25-2018 Lipid 1996 panel - S kevin or Plasma Dereje Trejo Start: 01-11-2018 Microscopic observat ion [Identifier] in Cervix by Cyto stain Chiquis Vargas MD Work Phone: Start: 12-14-2017 Microscopic observat ion [Identifier] in Cervix by Cyto stain Dereje Trejo Start: 12-08-2017 Mammography Dereje bobby Start: 05-19-2017 Colonoscopy Dereje Hogan rneni H/O: surgery S/P trigger fing er release- Rt thumb Marlyn Nelson PA-C Work Phone: Plan of Treatment Date Care Activity Detail Author Start: 10-03-2028 Screening for malignant neoplasm of cervix [facility] Start: 10-31-2027 DTaP/Tdap/Td Vaccines (3 - Td or Tdap) DTaP/Tdap/Td Vaccines (3 - Td or Tdap) [facility] Start: 10-31-2027 Tetanus vaccination [facility] Start: 05-19-2027 Colonoscopy COLONOSCOPY [facility] Start: 05-19-2027 Protein mass conc COLONOSCOPY [facility] Start: 05-19-2027 Screening for malignant neoplasm of colon [facility] Start: 10-03-2026 Screening for malignant neoplasm of cervix [facility] Start: 08-08-2026 Glaucoma screening Diabetic Eye Exam [facility] Start: 06-02-2026 End: 06-02-2026 Patient encounter procedure 06/02/2026 10:00 AM EDT Office Visit [facility] [address] [place] [address] Shannan Calzada CNP [address] [place] [address] [facility] Start: 05-20-2026 Depression screening using PHQ-9 (Patient Health Questionnaire 9) score Depression Screening/Follow-Up (PHQ-2/9) [facility] Start: 05-20-2026 eGFR Diabetes eGFR Diabetes [facility] Start: 02-26-2026 End: 07-20-2026 MG Breast - bilateral Screening Mammography Screening Geovanny Bilateral Imaging Routine Invasive ductal carcinoma of breast, female, right (HCC) Screening mammogram for breast cancer Expected: 02/26/2026, Expires: 07/20/2026 [facility] Comment on above: Expected: 02/26/2026, Expires: Start: 02-26-2026 End: 02-26-2026 Patient encounter procedure 02/26/2026 10:30 AM EDT Appointment [facility] [address] [place] [address] [facility] Start: 02-25-2026 Screening for malignant neoplasm of breast Mammogram [facility] Start: 12-09-2025 End: 12-09-2025 Patient encounter procedure 12/09/2025 8:30 AM EST Office Visit [facility] [address] [facility] [place] [address] Sebas Lee CNP [address] [address] [facility] Start: 11-01-2025 End: 11-01-2025 Patient encounter procedure 11/01/2025 9:40 AM EST Office Visit [facility] [place] [address] Elo Ogden MD [address] [address] [facility] Start: 10-24-2025 Diabetic foot examination Diabetic Foot Exam [facility] Start: 10-24-2025 History and physical examination, annual for health maintenance Wellness Visit [facility] Start: 10-15-2025 eGFR Diabetes eGFR Diabetes [facility] Start: 10-15-2025 Lipid panel Lipid Panel [facility] Start: 10-15-2025 Urine screening for protein [facility] Start: 09-03-2025 End: 09-03-2025 Patient encounter procedure 09/03/2025 12:00 PM EDT Appointment [facility] [address] [place] [phone] Shannan Calzada, [employer] [address] [place] [address] [facility] Start: 09-02-2025 End: 05-20-2026 DXA Skeletal system.axial Views for bone density XR Bone Density DEXA Axial Imaging Routine Asymptomatic menopause Aromatase inhibitor use History of breast cancer Expected: 09/02/2025, Expires: 05/20/2026 [facility] Work Phone: Comment on above: Expected: 09/02/2025, Expires: Start: 08-28-2025 End: 08-28-2025 Clinical Support 08/28/2025 10:00 AM EDT Clinical Support [facility] [address] [address] Shannan Calzada, [employer]OR [address] [place] [address] Stephen Solomon, , [facility] Discharge Disposition: Home [facility] Start: 07-29-2025 COVID-19 Vaccine ( season) COVID-19 Vaccine ( season) [facility] Start: 07-29-2025 Influenza vaccination Influenza Vaccine (#1) [facility] Start: 07-25-2025 End: 07-25-2025 Admission to same day surgery center 07/25/2025 8:50 AM EDT - 07/25/2025 11:49 AM EDT Surgery [facility] [address] [place] [phone] Robbie Santo MD [address] [address] PARATHYROIDECTOMY [facility] Comment on above: PARATHYROIDECTOMY Start: 07-25-2025 End: 07-25-2025 Parathyroidectomy/explora tion parathyroids PARATHYROIDECTOMY Hyperparathyroidism (HCC) 07/25/2025 8:50 AM EDT [facility] Start: 07-25-2025 Subsequent hospital visit by physician 07/25/2025 8:50 AM EDT Hospital Encounter [facility] [address] [place] [address] Robbie Santo MD [address] [address] [facility] Start: 07-18-2025 Glaucoma screening Diabetic Eye Exam [facility] Start: 07-15-2025 End: 07-15-2025 Patient encounter procedure 07/15/2025 8:00 AM EDT Office Visit [facility] Preadmission Testing [address] [place] [phone] Discharge Disposition: Home [facility] Start: 07-01-2025 End: 07-01-2025 Patient encounter procedure 07/01/2025 11:15 AM EDT Office Visit [facility] [address] [facility] Building, 5th [place] [address] Robbie Santo MD [address] [address] [facility] Start: 06-06-2025 End: 06-06-2025 Patient encounter procedure 06/06/2025 2:15 PM EDT Appointment [facility] [address] [place] [address] Robbie Santo MD [address] [facility] [address] [place] [address] [facility] Start: 06-06-2025 End: 06-06-2025 Patient encounter procedure [facility] Start: 05-30-2025 End: 05-30-2025 Patient encounter procedure 05/30/2025 2:30 PM EDT Appointment [facility] [address] [place] [address] Robbie Santo MD [address] [facility] [address] [place] [address] [facility] Start: 05-27-2025 End: 05-27-2025 Patient encounter procedure 05/27/2025 11:15 AM EDT Office Visit [facility] [address] Medical Office Building[address] [place] [address] Elo Ogden MD [facility] [address] [address] Robbie Santo MD [address] [address] [facility] Start: 05-24-2025 End: 05-24-2025 Patient encounter procedure 05/24/2025 2:30 PM EDT Office Visit [facility] [address] Medical Office Building, [address] [place] [phone] Elo Ogden MD [address] [address] Braden Gee MD [address] [address] [facility] Start: 05-13-2025 End: 05-13-2025 Patient encounter procedure 05/13/2025 2:30 PM EDT Office Visit [facility] [address] [address] Shannan Calzada, [employer]OR [address] [place] [address] [facility] Start: 05-13-2025 End: 05-13-2025 Patient encounter procedure [facility] Start: 05-01-2025 End: 05-01-2025 Patient encounter procedure 05/01/2025 1:00 PM EDT Office Visit [facility] [address] [facility] [address] [place] [phone] Shannan Cevallos PA-C [address] [place], [place] [id number] [facility] Start: 04-14-2025 Hemoglobin A1c measurement A1C [facility] Start: 02-21-2025 End: 12-24-2025 MG Breast - bilateral Screening Mammography Screening Geovanny Bilateral Imaging Routine Encounter for screening mammogram for malignant neoplasm of breast Expected: 02/21/2025, Expires: 12/24/2025 [facility] Work Phone: Comment on above: Expected: 02/21/2025, Expires: Start: 01-30-2025 Screening for malignant neoplasm of breast Mammogram [facility] Start: 10-24-2024 End: 10-24-2024 Patient encounter procedure 10/24/2024 8:20 AM EST Office Visit [facility] [place] [address] Elo Ogden MD [address] [address] [facility] Start: 10-16-2024 End: 10-16-2024 Patient encounter procedure 10/16/2024 11:20 AM EST Office Visit [facility] [address] [facility] [address] [place] [address] Shannan Cevallos PA-C [address] [facility] [facility] [address] [place] [address] [facility] Start: 10-04-2024 End: 10-04-2024 Patient encounter procedure 10/04/2024 11:00 AM EST Office Visit [facility] [address] [place] [phone] Elo Ogden MD [address] [address] [facility] Start: 10-03-2024 Diabetic foot examination [facility] Start: 10-03-2024 History and physical examination, annual for health maintenance Wellness Visit [facility] Start: 09-27-2024 Lipid panel Lipid Panel [facility] Start: 09-27-2024 Urine screening for protein [facility] Start: 07-29-2024 COVID-19 Vaccine ( season) COVID-19 Vaccine ( season) [facility] Start: 07-29-2024 COVID-19 Vaccine ( season) COVID-19 Vaccine ( season) [facility] Start: 07-29-2024 Influenza vaccination Influenza Vaccine (#1) [facility] Start: 06-23-2024 Glaucoma screening Diabetic Eye Exam [facility] Start: 05-14-2024 End: 05-14-2024 Patient encounter procedure 05/14/2024 3:00 PM EDT Office Visit [facility] [address] [place] [address] Shannan Calzada, [employer]OR [address] [place] [address] [facility] Start: 03-27-2024 Hemoglobin A1c measurement A1C [facility] Start: 03-22-2024 Lipid panel Lipid Panel [facility] Start: 03-22-2024 Urine screening for protein Urine Microalbumin [facility] Start: 03-07-2024 End: 03-07-2024 Patient encounter procedure 03/07/2024 2:30 PM EDT Infusion/Injection [facility] [address] [place] [phone] Pratik Riley MD [address] [place] [address] Discharge Disposition: Home [facility] Start: 01-31-2024 End: 01-31-2024 Patient encounter procedure 01/31/2024 3:30 PM EST Appointment [facility] [address] [place] [phone] [facility] Start: 01-28-2024 Screening for malignant neoplasm of breast Mammogram [facility] Start: 12-21-2023 End: 12-21-2023 Patient encounter procedure 12/21/2023 1:00 PM EST Office Visit [facility] [address] [place] [phone] Shannan Cevallos PA-C [address] [facility] [address] [place] [address] [facility] Start: 11-14-2023 End: 11-14-2023 Patient encounter procedure [facility] Start: 10-03-2023 End: 10-03-2023 Patient encounter procedure 10/03/2023 2:40 PM EST Office Visit [facility] [address] [place] [address] Elo Ogden MD [address] [address] [facility] Start: 09-27-2023 End: 09-27-2023 Patient encounter procedure 09/27/2023 8:00 AM EDT Office Visit [facility] [address] [place] [address] Elo Ogden MD [address] [address] [facility] Start: 09-26-2023 Screening for malignant neoplasm of cervix Pap Smear [facility] Start: 09-24-2023 Diabetic foot examination Foot Exam [facility] Start: 09-24-2023 History and physical examination, annual for health maintenance Wellness Visit [facility] Start: 09-21-2023 Hemoglobin A1c measurement A1C [facility] Start: 09-07-2023 End: 09-07-2023 Patient encounter procedure 09/07/2023 2:30 PM EDT Infusion/Injection [facility] [address] [place] [phone] Pratik Riley MD [address] [place] [address] Discharge Disposition: Home [facility] Start: 09-01-2023 End: 09-01-2023 Patient encounter procedure 09/01/2023 2:30 PM EDT Appointment [facility] [address] [place] [phone] Marion Garrett MD [address] [place] [address] [facility] Start: 09-01-2023 End: 08-31-2024 XR Bone Density DEXA Axial and Appendicular XR Bone Density DEXA Axial and Appendicular Imaging Routine Encounter for screening for osteoporosis Invasive ductal carcinoma of breast, female, right (HCC) Expected: 09/01/2023, Expires: 08/31/2024 [facility] Work Phone: Comment on above: Expected: 09/01/2023, Expires: Start: 08-10-2023 Depression screening using PHQ-9 (Patient Health Questionnaire 9) score [facility] Start: 07-29-2023 COVID-19 Vaccine () COVID-19 Vaccine () [facility] Start: 07-29-2023 Influenza vaccination [facility] Start: 06-27-2023 Screening for malignant neoplasm of cervix Pap Smear [facility] Start: 06-24-2023 Glaucoma screening [facility] Start: 03-24-2023 End: 03-24-2023 Patient encounter procedure [facility] Start: 03-09-2023 End: 03-09-2023 ambulatory 03/09/2023 Infusion/Injection Infusion Therapy Pratik Riley MD [address] [place] [address] [facility] Start: 03-09-2023 End: 03-09-2023 Patient encounter procedure 03/09/2023 2:30 PM EDT Infusion/Injection [facility] [address] [place] [phone] Pratik Riley MD [address] [place] [address] Discharge Disposition: Home [facility] Start: 02-07-2023 Hemoglobin A1c measurement A1C [facility] Start: 01-27-2023 End: 01-27-2023 Patient encounter procedure 01/27/2023 Appointment Radiology [facility] Start: 01-27-2023 Lipid panel Lipid Panel [facility] Start: 01-26-2023 End: 01-26-2023 Patient encounter procedure 01/26/2023 Appointment Radiology [facility] Start: 01-26-2023 End: 04-24-2023 MG Breast - bilateral Screening Mammography Screening Geovanny Bilateral Imaging Routine Invasive ductal carcinoma of breast, female, right (HCC) Expected: 01/26/2023 (Approximate), Expires: 04/24/2023 [facility] Work Phone: Comment on above: Expected: 01/26/2023 (Approximate), Expi res: 04/24/2023 Start: 01-26-2023 End: 01-26-2023 Patient encounter procedure 01/26/2023 Appointment Radiology Marion Garrett MD [address] [place] [address] [facility] Start: 01-25-2023 Screening for malignant neoplasm of breast Mammogram [facility] Start: 12-21-2022 End: 12-21-2022 Patient encounter procedure 12/21/2022 Office Visit Primary Care Elo Ogden MD [address] [address] [facility] Start: 11-30-2022 Pneumococcal Vaccine: Ped or At-Risk (2 of 4 - PPSV23) Pneumococcal Vaccine: Ped or At-Risk (2 of 4 - PPSV23) [facility] Start: 11-15-2022 End: 11-15-2022 Patient encounter procedure 11/15/2022 Office Visit Oncology Marion Garrett MD [address] [place] [address] [facility] Start: 09-30-2022 Depression screening using PHQ-9 (Patient Health Questionnaire 9) score Depression Screening (PHQ-2/9) [facility] Start: 09-30-2022 History and physical examination, annual for health maintenance Wellness Visit [facility] Start: 09-24-2022 End: 09-24-2022 Patient encounter procedure 09/24/2022 Office Visit Primary Care Elo Ogden MD [address] [address] [facility] Start: 09-08-2022 End: 09-08-2022 ambulatory [facility] Start: 08-12-2022 End: 08-12-2022 Admission to same day surgery center 08/12/2022 Surgery Braden Gee MD [address] [place] [address] CHOLECYSTECTOMY ROBOTIC XI [facility] Comment on above: CHOLECYSTECTOMY ROBOTIC XI Start: 08-12-2022 End: 08-12-2022 CHOLECYSTECTOMY ROBOTIC XI CHOLECYSTECTOMY ROBOTIC XI Nausea and vomiting, unspecified vomiting type Diarrhea, unspecified type Calculus of gallbladder without cholecystitis without obstruction 08/12/2022 1:35 PM EDT [facility] [place] Start: 08-12-2022 Subsequent hospital visit by physician 08/12/2022 Hospital Encounter Braden Gee MD [address] [place] [id number] [facility] Start: 08-12-2022 End: 08-12-2022 Admission to same day surgery center 08/12/2022 Surgery Braden Gee MD [address] [place] [id number] CHOLECYSTECTOMY ROBOTIC XI [facility] Comment on above: CHOLECYSTECTOMY ROBOTIC XI Start: 08-12-2022 End: 08-12-2022 CHOLECYSTECTOMY ROBOTIC XI CHOLECYSTECTOMY ROBOTIC XI Nausea and vomiting, unspecified vomiting type Diarrhea, unspecified type Calculus of gallbladder without cholecystitis without obstruction 08/12/2022 11:50 AM EDT [facility] [place] Start: 08-12-2022 Subsequent hospital visit by physician 08/12/2022 Hospital Encounter Braden Gee MD [address] [address] [facility] Start: 08-10-2022 End: 08-10-2022 Admission to [facility] 08/10/2022 Clinical Support Pre-Admission Testing [facility] Preadmission Testing Start: 08-10-2022 End: 08-10-2022 Patient encounter procedure 08/10/2022 Office Visit Primary Care Elo Ogden MD [address] [id number] [facility] Start: 07-30-2022 Hemoglobin A1c measurement A1C [facility] Start: 07-29-2022 Influenza vaccination Sequential Influenza Vaccine (#1) [facility] Start: 07-20-2022 End: 07-19-2023 Gastrointestinal pathogens DNA and RNA panel - Stool by LORENA with non-probe detection Stool/GI PCR Panel Microbiology Routine Diarrhea, unspecified type Expected: 07/20/2022, Expires: 07/19/2023 [facility] Work Phone: Comment on above: Expected: 07/20/2022, Expires: 3 Start: 07-06-2022 Ophthalmic examination and evaluation Ophthalmology Exam [facility] Start: 06-24-2022 Ophthalmic examination and evaluation Ophthalmology Exam [facility] Start: 06-23-2022 Lipid panel Lipid Panel [facility] Start: 06-02-2022 End: 06-02-2022 Patient encounter procedure 06/02/2022 Office Visit Primary Care Dereje Trejo MD [address] [place], [place] [id number] [facility] Start: 05-06-2022 End: 02-03-2023 Hemoglobin A1c/Hemoglobin.total in Blood Hemoglobin A1c Lab Routine Type 2 diabetes mellitus without complication, without long-term current use of insulin (HCC) Expected: 05/06/2022, Expires: 02/03/2023 [facility] Comment on above: Expected: 05/06/2022, Expires: 3 Start: 05-06-2022 End: 02-03-2023 Microalbumin measurement, urine, quantitative Microalbumin/Creatinine Ratio, UR Random Lab Routine Type 2 diabetes mellitus without complication, without long-term current use of insulin (HCC) Expected: 05/06/2022, Expires: 02/03/2023 [facility] Work Phone: Comment on above: Expected: 05/06/2022, Expires: 3 Start: 05-06-2022 End: 02-03-2023 Vitamin D, 25-hydroxy measurement Vitamin D, Total, 25-OH Lab Routine Vitamin D deficiency Expected: 05/06/2022, Expires: 02/03/2023 [facility] Comment on above: Expected: 05/06/2022, Expires: 3 Start: 04-27-2022 COVID-19 Vaccine (4 - Booster) COVID-19 Vaccine (4 - Booster) [facility] Start: 04-20-2022 Hemoglobin A1c measurement A1C [facility] Start: 2022 Hepatitis B Vaccines (1 of 3 - Risk 3-dose series) Hepatitis B Vaccines (1 of 3 - Risk 3-dose series) [facility] Start: 2022 Respiratory Syncytial Virus Immunization: Risk, 60-74 Risk, or 75+ (1 - Risk 60-74 years 1-dose series) Respiratory Syncytial Virus Immunization: Risk, 60-74 Risk, or 75+ (1 - Risk 60-74 years 1-dose series) [facility] Start: 2022 RSV Immunization aged 60 or older (1 - 1-dose 60+ series) RSV Immunization aged 60 or older (1 - 1-dose 60+ series) [facility] Start: 03-10-2022 End: 03-10-2022 ambulatory [facility] Start: 03-04-2022 Albumin DL <= 20 mg/L (U) [Mass/Vol] Urine Microalbumin [facility] Start: 03-04-2022 Fasting lipid profile Lipid Panel [facility] Start: 03-04-2022 Lipid panel Lipid Panel [facility] Start: 03-04-2022 Microalbumin measurement, urine, quantitative Urine Microalbumin [facility] Start: 03-04-2022 Urine screening for protein Urine Microalbumin [facility] Start: 02-25-2022 COVID-19 Vaccine (4 - Booster) COVID-19 Vaccine (4 - Booster) [facility] Start: 02-19-2022 COVID-19 Vaccine (4 - Booster) COVID-19 Vaccine (4 - Booster) [facility] Start: 02-17-2022 End: 02-17-2022 Patient encounter procedure 02/17/2022 Office Visit Oncology Exten, Marion Ramirez MD [address] [place] [id number] [facility] Start: 02-10-2022 Fasting lipid profile Lipid Panel [facility] Start: 02-03-2022 End: 02-03-2022 Patient encounter procedure 02/03/2022 Office Visit Primary Care Dereje Trejo MD [address] [phone] [facility] Start: 01-31-2022 End: 11-02-2022 Complete blood count with white cell differential, manual CBC and Differential Lab Routine Type 2 diabetes mellitus without complication, without long-term current use of insulin (HCC) Expected: 01/31/2022, Expires: 11/02/2022 [facility] Work Phone: Comment on above: Expected: 01/31/2022, Expires: 2 Start: 01-31-2022 End: 11-02-2022 Comprehensive metabolic 2000 panel - Serum or Plasma Comprehensive Metabolic Panel Lab Routine Type 2 diabetes mellitus without complication, without long-term current use of insulin (HCC) Expected: 01/31/2022, Expires: 11/02/2022 [facility] Comment on above: Expected: 01/31/2022, Expires: 2 Start: 01-31-2022 End: 11-02-2022 Hemoglobin A1c/Hemoglobin.total in Blood Hemoglobin A1c Lab Routine Type 2 diabetes mellitus without complication, without long-term current use of insulin (HCC) Expected: 01/31/2022, Expires: 11/02/2022 [facility] Comment on above: Expected: 01/31/2022, Expires: 2 Start: 01-31-2022 End: 11-02-2022 Lipid 1996 panel - Serum or Plasma Lipid Panel Lab Routine Type 2 diabetes mellitus without complication, without long-term current use of insulin (HCC) Expected: 01/31/2022, Expires: 11/02/2022 [facility] Comment on above: Expected: 01/31/2022, Expires: 2 Start: 01-31-2022 End: 11-02-2022 Thyrotropin [Units/volume] in Serum or Plasma TSH with Reflex Free T4 Lab Routine Mixed hyperlipidemia Expected: 01/31/2022, Expires: 11/02/2022 [facility] Comment on above: Expected: 01/31/2022, Expires: 2 Start: 01-25-2022 End: 01-25-2022 [facility] Start: 01-23-2022 End: 04-19-2022 MG Breast - bilateral screening Mammography Screening Ge[facility] Bilateral Imaging Routine Invasive ductal carcinoma of breast, female, right (HCC) Expected: 01/23/2022 (Approximate), Expires: 04/19/2022 [facility] Comment on above: Expected: 01/23/2022 (Approximate), Expi res: 04/19/2022 Start: 01-22-2022 COVID-19 Vaccine (4 - Booster) COVID-19 Vaccine (4 - Booster) [facility] Start: 01-22-2022 COVID-19 Vaccine (4 - Mixed Product risk series) COVID-19 Vaccine (4 - Mixed Product risk series) [facility] Start: 01-22-2022 Screening for malignant neoplasm of breast Mammogram [facility] Start: 01-22-2022 Screening mammography Mammogram [facility] Start: 12-24-2021 Hemoglobin A1c measurement A1C [facility] Start: 10-26-2021 End: 10-26-2021 Patient encounter procedure [facility] Start: 09-30-2021 End: 09-30-2021 Patient encounter procedure 09/30/2021 Office Visit Obstetrics and Gynecology Pebbles Wetzel, BEAUTY SALES ADVISOR [address] [place] [address] [facility] Start: 09-25-2021 End: 06-25-2022 Comprehensive metabolic 2000 panel - Serum or Plasma Comprehensive Metabolic Panel Lab Routine Type 2 diabetes mellitus without complication, without long-term current use of insulin (HCC) Expected: 09/25/2021, Expires: 06/25/2022 [facility] Comment on above: Expected: 09/25/2021, Expires: Start: 09-25-2021 End: 06-25-2022 Hemoglobin A1c/Hemoglobin.total in Blood Hemoglobin A1c Lab Routine Type 2 diabetes mellitus without complication, without long-term current use of insulin (HCC) Expected: 09/25/2021, Expires: 06/25/2022 [facility] Comment on above: Expected: 09/25/2021, Expires: 2 Start: 09-25-2021 End: 06-25-2022 Vitamin D, 25-hydroxy measurement Vitamin D, Total, 25-OH Lab Routine Vitamin D deficiency Expected: 09/25/2021, Expires: 06/25/2022 [facility] Comment on above: Expected: 09/25/2021, Expires: 2 Start: 09-09-2021 End: 09-09-2021 ambulatory 09/09/2021 Infusion/Injection Infusion Therapy Pratik Riley MD [facility] [place] [address] [facility] Start: 09-03-2021 Hemoglobin A1c measurement A1C [facility] Start: 08-24-2021 End: 08-24-2021 Office Visit [facility] Start: 08-18-2021 End: 08-18-2021 Appointment [facility] Start: 08-13-2021 HbA1c (Bld) [Mass fraction] A1C [facility] Start: 07-29-2021 Influenza vaccination [facility] Start: 07-29-2021 End: 02-17-2022 XR Bone Density DEXA Axial and Appendicular XR Bone Density DEXA Axial and Appendicular Imaging Routine Invasive ductal carcinoma of breast, female, right (HCC) Expected: 07/29/2021 (Approximate), Expires: 02/17/2022 [facility] Comment on above: Expected: 07/29/2021 (Approximate), Expi res: 02/17/2022 Start: 07-16-2021 End: 07-16-2021 Patient encounter procedure 07/16/2021 Office Visit Orthopaedics Marlyn Nelson PA-C [address] [place] [address] [phone] [facility] Start: 07-07-2021 Fasting lipid profile Lipid Panel [facility] Start: 06-27-2021 Adolescent depression screening assessment Depression Screening (PHQ9) [facility] Start: 06-27-2021 Depression screening using PHQ-9 (Patient Health Questionnaire 9) score Depression Screening (PHQ9) [facility] Start: 06-27-2021 History and physical examination, annual for health maintenance Wellness Visit [facility] Start: 06-25-2021 End: 06-25-2021 Patient encounter procedure 06/25/2021 Office Visit Primary Care Dereje Trejo MD [address] [place] [address] [phone] [facility] Start: 06-20-2021 End: 06-19-2022 Complete blood count with white cell differential, manual CBC and Differential Lab Routine Type 2 diabetes mellitus without complication, without long-term current use of insulin (HCC) Expected: 06/20/2021, Expires: 06/19/2022 [facility] Comment on above: Expected: 06/20/2021, Expires: Start: 06-20-2021 End: 06-19-2022 Comprehensive metabolic 2000 panel - Serum or Plasma Comprehensive Metabolic Panel Lab Routine Type 2 diabetes mellitus without complication, without long-term current use of insulin (HCC) Expected: 06/20/2021, Expires: 06/19/2022 [facility] Comment on above: Expected: 06/20/2021, Expires: Start: 06-20-2021 End: 06-19-2022 Hemoglobin A1c/Hemoglobin.total in Blood Hemoglobin A1c Lab Routine Type 2 diabetes mellitus without complication, without long-term current use of insulin (HCC) Expected: 06/20/2021, Expires: 06/19/2022 [facility] Comment on above: Expected: 06/20/2021, Expires: 2 Start: 06-20-2021 End: 06-19-2022 Lipid 1996 panel - Serum or Plasma Lipid Panel Lab Routine Type 2 diabetes mellitus without complication, without long-term current use of insulin (HCC) Expected: 06/20/2021, Expires: 06/19/2022 [facility] Comment on above: Expected: 06/20/2021, Expires: 2 Start: 06-20-2021 End: 06-19-2022 Vitamin D, 25-hydroxy measurement Vitamin D, Total, 25-OH Lab Routine Vitamin D deficiency Expected: 06/20/2021, Expires: 06/19/2022 [facility] Comment on above: Expected: 06/20/2021, Expires: Start: 06-18-2021 End: 06-18-2021 Patient encounter procedure 06/18/2021 Office Visit Orthopaedics Marlyn Nelson PA-C [address] [place] [address] [phone] [facility] Start: 06-04-2021 End: 06-04-2021 Office Visit [facility] Comment on above: Trigger thumb of right hand A-1 SANTANA RELEASE - THUMB - RIGHT Start: 05-28-2021 Ophthalmic examination and evaluation Ophthalmology Exam [facility] Start: 05-28-2021 End: 05-28-2021 ambulatory 05/28/2021 Pre-Operative Nurse Assessment Internal Medicine Chiquis Vargas MD [address] [place] [address] [phone] Preop testing (Primary Dx) [facility] Pre Admission Comment on above: Preop testing (Primary Dx) Start: 05-21-2021 End: 06-18-2021 Thumb X-ray XR THUMB RIGHT Imaging Routine Thumb pain, right Expected: 05/21/2021, Expires: 06/18/2021 [facility] Comment on above: Expected: 05/21/2021, Expires: Start: 05-12-2021 End: 05-12-2021 Clinical Support 05/12/2021 Clinical Support Sports Medicine Ronit Sinha, JS [address] [facility] 2 [place] [address] [phone] [facility] Start: 05-05-2021 End: 05-05-2021 Admission to same day surgery center 05/05/2021 Surgery Lyn Jamison MD 24 [facility] [place] [facility] [address] [place] [address] [phone] RELEASE TRIGGER FINGER - RIGHT [facility] Comment on above: RELEASE TRIGGER FINGER - RIGHT Start: 05-05-2021 Subsequent hospital visit by physician 05/05/2021 Hospital Encounter Lyn Jamison MD [address] [place], [place] [phone] [facility] Start: 04-06-2021 End: 04-06-2021 Patient encounter procedure 04/06/2021 Office Visit Sports Medicine Lyn Jamison MD 24 [facility] [place] [facility] [address] [place], [place] [phone] [facility] Start: 03-06-2021 COVID-19 Vaccine (3 - Pfizer risk 3-dose series) COVID-19 Vaccine (3 - Pfizer risk 3-dose series) [facility] Start: 03-06-2021 COVID-19 Vaccine (3 - Pfizer risk 4-dose series) COVID-19 Vaccine (3 - Pfizer risk 4-dose series) [facility] Start: 03-04-2021 End: 03-03-2022 Comprehensive metabolic 2000 panel Comprehensive Metabolic Panel Lab Routine Hypercalcemia Expected: 03/04/2021, Expires: 03/03/2022 [facility] Comment on above: Expected: 03/04/2021, Expires: 2 Start: 03-04-2021 End: 03-03-2022 Microalbumin measurement, urine, quantitative Microalbumin/Creatinine Ratio, UR Random Lab Routine Type 2 diabetes mellitus without complication, without long-term current use of insulin (HCC) Expected: 03/04/2021, Expires: 03/03/2022 [facility] Comment on above: Expected: 03/04/2021, Expires: 2 Start: 03-04-2021 End: 03-03-2022 Vitamin D, 25-hydroxy measurement Vitamin D, Total, 25-OH Lab Routine Vitamin D deficiency Expected: 03/04/2021, Expires: 03/03/2022 [facility] Comment on above: Expected: 03/04/2021, Expires: 2 Start: 03-03-2021 End: 03-03-2021 Office Visit 03/03/2021 Office Visit Primary Care Dereje Trejo MD [address] [address] [phone] [facility] Start: 02-17-2021 End: 02-17-2021 Office Visit [facility] Start: 02-17-2021 End: 02-17-2022 US Soft Tissue Neck and Thyroid US Soft Tissue Neck and Thyroid Imaging Routine Neck swelling Expected: 02/17/2021 (Approximate), Expires: 02/17/2022 [facility] Comment on above: Expected: 02/17/2021 (Approximate), Expi res: 02/17/2022 Start: 02-05-2021 Fasting lipid profile Lipid Panel [facility] Start: 01-22-2021 End: 01-22-2021 Appointment 01/22/2021 Appointment Radiology Exten, Marion Ramirez MD [address] [place], [place] [id number] [phone] [facility] Start: 01-22-2021 End: 10-19-2021 MG Breast - bilateral screening [facility] Comment on above: Expected: 01/22/2021 (Approximate), Expi res: 10/19/2021 Once for 1 Occurrenc es starting 01/22/2021 until 01/22/2021 Start: 01-22-2021 Screening mammography Mammogram [facility] Start: 01-11-2021 Microscopic observation [Identifier] in Cervix by Cyto stain PAP SMEAR [facility] Start: 01-11-2021 Screening for malignant neoplasm of cervix PAP SMEAR [facility] Start: 01-07-2021 HbA1c (Bld) [Mass fraction] A1C [facility] Start: 12-14-2020 Screening for malignant neoplasm of cervix PAP SMEAR [facility] Start: 10-22-2020 End: 07-22-2021 Comprehensive metabolic 2000 panel Comprehensive Metabolic Panel Lab Routine Type 2 diabetes mellitus without complication, without long-term current use of insulin (HCC) Expected: 10/22/2020, Expires: 07/22/2021 [facility] Comment on above: Expected: 10/22/2020, Expires: Start: 10-22-2020 End: 07-22-2021 HbA1c (Bld) [Mass fraction] Hemoglobin A1c Lab Routine Type 2 diabetes mellitus without complication, without long-term current use of insulin (HCC) Expected: 10/22/2020, Expires: 07/22/2021 [facility] Comment on above: Expected: 10/22/2020, Expires: 1 Start: 10-22-2020 End: 07-22-2021 Lipid 1996 panel Lipid Panel Lab Routine Type 2 diabetes mellitus without complication, without long-term current use of insulin (HCC) Expected: 10/22/2020, Expires: 07/22/2021 [facility] Comment on above: Expected: 10/22/2020, Expires: 1 Start: 10-22-2020 End: 07-22-2021 Microalbumin measurement, urine, quantitative Microalbumin/Creatinine Ratio, UR Random Lab Routine Type 2 diabetes mellitus without complication, without long-term current use of insulin (HCC) Expected: 10/22/2020, Expires: 07/22/2021 [facility] Comment on above: Expected: 10/22/2020, Expires: 1 Start: 10-12-2020 Diabetic foot examination FOOT EXAM [facility] Start: 09-26-2020 End: 09-26-2020 Office Visit 09/26/2020 Office Visit Obstetrics and Gynecology Pebbles Wetzel, BEAUTY SALES ADVISOR [address] [address] [phone] [facility] Start: 08-26-2020 End: 08-26-2020 Appointment 08/26/2020 Appointment Radiology Braden Gee MD 335 [facility] [address] [address] [phone] [facility] Start: 08-19-2020 End: 08-19-2020 Office Visit [facility] Start: 08-08-2020 HbA1c (Bld) [Mass fraction] A1C [facility] Start: 07-29-2020 Influenza vaccination given Sequential Influenza Vaccine (#1) [facility] Start: 07-14-2020 End: 07-14-2020 Office Visit 07/14/2020 Office Visit Primary Care Dereje Trejo MD [address] [place] [address] [phone] [facility] Start: 06-29-2020 Fasting lipid profile Lipid Panel [facility] Start: 05-04-2020 Ophthalmic examination and evaluation Ophthalmology Exam [facility] Start: 03-28-2020 Albumin DL <= 20 mg/L mass conc (U) URINE MICROALBUMIN [facility] Start: 03-28-2020 Microalbumin measurement, urine, quantitative URINE MICROALBUMIN [facility] Start: 02-28-2020 Protein mass conc Mammogram [facility] Start: 02-28-2020 Screening mammography Mammogram [facility] Start: 02-12-2020 End: 02-12-2020 Office Visit 02/12/2020 Office Visit Primary Care Dereje Trejo MD [address] [place] [address] [phone] [facility] Start: 02-07-2020 Protein mass conc Mammogram [facility] Start: 02-07-2020 Screening mammography Mammogram [facility] Start: 02-01-2020 Screening mammography Mammogram [facility] Start: 01-28-2020 End: 01-28-2020 Office Visit [facility] Start: 01-25-2020 End: 01-25-2020 Office Visit 01/25/2020 Office Visit General Surgery Braden Gee MD 335 [facility] [address] [address] [phone] [facility] Start: 01-22-2020 End: 01-22-2020 Appointment 01/22/2020 Appointment Radiology Braden Gee MD [address] [place] [address] [phone] [facility] Start: 01-19-2020 Protein mass conc Mammogram [facility] Start: 01-12-2020 End: 10-12-2020 Comprehensive metabolic 2000 panel Comprehensive Metabolic Panel Lab Routine Type 2 diabetes mellitus without complication, without long-term current use of insulin (HCC) Expected: 01/12/2020, Expires: 10/12/2020 [facility] Comment on above: Expected: 01/12/2020, Expires: 0 Start: 01-12-2020 End: 10-12-2020 HbA1c (Bld) [Mass fraction] Hemoglobin A1c Lab Routine Type 2 diabetes mellitus without complication, without long-term current use of insulin (HCC) Expected: 01/12/2020, Expires: 10/12/2020 [facility] Comment on above: Expected: 01/12/2020, Expires: 0 Start: 01-12-2020 End: 10-12-2020 Lipid 1996 panel Lipid Panel Lab Routine Type 2 diabetes mellitus without complication, without long-term current use of insulin (HCC) Expected: 01/12/2020, Expires: 10/12/2020 [facility] Comment on above: Expected: 01/12/2020, Expires: 0 Start: 01-12-2020 End: 10-12-2020 Vitamin D, 25-hydroxy measurement Vitamin D, Total, 25-OH Lab Routine Vitamin D deficiency Expected: 01/12/2020, Expires: 10/12/2020 [facility] Comment on above: Expected: 01/12/2020, Expires: 0 Start: 12-30-2019 HbA1c (Bld) [Mass fraction] A1C [facility] Start: 12-25-2019 Fasting lipid profile Lipid Panel [facility] Start: 12-25-2019 Lipid panel Lipid Panel [facility] Start: 10-12-2019 End: 10-12-2019 Office Visit [facility] Start: 09-28-2019 Hemoglobin A1c measurement A1C [facility] Start: 09-28-2019 Hemoglobin A1c/Hemoglobin.total mass fraction (Bld) A1C [facility] Start: 09-25-2019 End: 09-25-2019 Office Visit 09/25/2019 Office Visit Oncology Marion Garrett MD [address] [place] [address] [facility] Start: 09-18-2019 End: 09-18-2019 Office Visit 09/18/2019 Office Visit Oncology Marion Garrett MD [address] [place] [address] [phone] (Fax) [facility] Start: 08-16-2019 End: 08-16-2019 Appointment 08/16/2019 Appointment Radiology Marion Garrett MD [address] [facility] [place] [address] [facility] Start: 07-29-2019 Influenza vaccination given SEQUENTIAL INFLUENZA VACCINE (#1) [facility] Start: 07-09-2019 End: 07-09-2019 Office Visit 07/09/2019 Office Visit Primary Care Dereje Trejo MD [address] [place] [address] [phone] [facility] Start: 07-05-2019 End: 04-04-2020 Comprehensive metabolic 2000 panel Comprehensive Metabolic Panel Routine Type 2 diabetes mellitus without complication, without long-term current use of insulin (HCC) Expected: 07/05/2019, Expires: 04/04/2020 [facility] Comment on above: Expected: 07/05/2019, Expires: 0 Start: 07-05-2019 End: 04-04-2020 Hemoglobin A1c/Hemoglobin.total mass fraction (Bld) Hemoglobin A1c Routine Type 2 diabetes mellitus without complication, without long-term current use of insulin (HCC) Expected: 07/05/2019, Expires: 04/04/2020 [facility] Comment on above: Expected: 07/05/2019, Expires: 0 Start: 07-05-2019 End: 04-04-2020 Lipid 1996 panel Lipid Panel Routine Type 2 diabetes mellitus without complication, without long-term current use of insulin (HCC) Expected: 07/05/2019, Expires: 04/04/2020 [facility] Comment on above: Expected: 07/05/2019, Expires: 0 Start: 07-05-2019 End: 07-05-2019 Radiation Oncology [facility] Start: 06-25-2019 End: 06-25-2019 Radiation Oncology 06/25/2019 Radiation Oncology Radiation Oncology Leno Pelletier MD [address] [place] [phone] [facility] Start: 06-24-2019 Fasting lipid profile LIPID PANEL [facility] Start: 06-24-2019 Hemoglobin A1c/Hemoglobin.total mass fraction (Bld) [facility] Start: 06-19-2019 End: 06-19-2019 Office Visit [facility] Start: 06-11-2019 End: 06-11-2019 Office Visit 06/11/2019 Office Visit General Surgery Braden Gee MD [address] [place] [address] [address] [facility] Start: 06-05-2019 End: 06-05-2019 Radiation Oncology 06/05/2019 Radiation Oncology Radiation Oncology Leno Pelletier MD [address] [place] [address] [phone] [facility] Start: 06-04-2019 End: 06-04-2019 Radiation Oncology 06/04/2019 Radiation Oncology Radiation Oncology Leno Pelletier MD [address] [place] [address] [phone] [facility] Start: 06-01-2019 End: 06-01-2019 Radiation Oncology 06/01/2019 Radiation Oncology Radiation Oncology Leno Pelletier MD [address] [place] [address] [phone] [facility] Start: 05-30-2019 End: 05-30-2019 Radiation Oncology 05/30/2019 Radiation Oncology Radiation Oncology Leno Pelletier MD [address] [place] [address] [phone] [facility] Start: 05-28-2019 End: 05-28-2019 Radiation Oncology 05/28/2019 Radiation Oncology Radiation Oncology Leno Pelletier MD [address] [place] [address] [phone] [facility] Start: 05-25-2019 End: 05-25-2019 Radiation Oncology 05/25/2019 Radiation Oncology Radiation Oncology Leno Pelletier MD [address] [place] [address] [phone] [facility] Start: 05-24-2019 End: 05-24-2019 Radiation Oncology 05/24/2019 Radiation Oncology Radiation Oncology Leno Pelletier MD [address] [place] [address] [phone] [facility] Start: 05-23-2019 End: 05-23-2019 Radiation Oncology 05/23/2019 Radiation Oncology Radiation Oncology Leno Pelletier MD [address] [place] [address] [phone] [facility] Start: 05-22-2019 End: 05-22-2019 Radiation Oncology [facility] Start: 05-21-2019 End: 05-21-2019 Radiation Oncology 05/21/2019 Radiation Oncology Radiation Oncology Dereje Trejo MD [address] [place] [phone] [facility] Start: 05-18-2019 End: 05-18-2019 Radiation Oncology 05/18/2019 Radiation Oncology Radiation Oncology Dereje Trejo MD [address] [place] [phone] [facility] Start: 05-17-2019 End: 05-17-2019 Radiation Oncology 05/17/2019 Radiation Oncology Radiation Oncology Dereje Trjeo MD [address] [place] [phone] [facility] Start: 05-16-2019 End: 05-16-2019 Radiation Oncology 05/16/2019 Radiation Oncology Radiation Oncology Dereje Trejo MD [address] [place] [phone] [facility] Start: 05-15-2019 End: 05-15-2019 Radiation Oncology [facility] Start: 05-14-2019 End: 05-14-2019 Radiation Oncology 05/14/2019 Radiation Oncology Radiation Oncology Dereje Trejo MD [address] [place] [phone] [facility] Start: 05-11-2019 End: 05-11-2019 Radiation Oncology 05/11/2019 Radiation Oncology Radiation Oncology Dereje Trejo MD [address] [place] [address] [phone] [facility] Start: 05-10-2019 End: 05-10-2019 Radiation Oncology 05/10/2019 Radiation Oncology Radiation Oncology Dereje Trejo MD [address] [place] [address] [phone] [facility] Start: 05-09-2019 End: 05-09-2019 Radiation Oncology 05/09/2019 Radiation Oncology Radiation Oncology Dereje Trejo MD [address] [place] [address] [phone] [facility] Start: 05-03-2019 End: 05-03-2019 Office Visit 05/03/2019 Office Visit General Surgery Braden Gee MD [address] [place] [address] [phone] [facility] Start: 04-26-2019 End: 04-26-2019 Radiation Oncology 04/26/2019 Radiation Oncology Radiation Oncology Leno Pelletier MD [address] [place] [address] [phone] [facility] Start: 04-20-2019 End: 04-20-2019 Office Visit 04/20/2019 Office Visit General Surgery Braden Gee MD [address] [place] [address] [phone] [facility] Start: 04-17-2019 End: 04-17-2019 Office Visit 04/17/2019 Office Visit Oncology Marion Garrett MD [address] [place] [address] [phone] [facility] Start: 04-06-2019 End: 04-06-2020 XR Ribs Right 3+ Views (Standard) XR Ribs Right 3+ Views (Standard) Routine Rib pain on right side Expected: 04/06/2019, Expires: 04/06/2020 [facility] Comment on above: Expected: 04/06/2019, Expires: 0 Start: 04-04-2019 End: 04-04-2019 Office Visit 04/04/2019 Office Visit Primary Care Dereje Trejo MD [address] [place] [address] [phone] [facility] Start: 04-02-2019 End: 04-02-2019 Office Visit [facility] Start: 04-01-2019 End: 01-02-2020 Comprehensive metabolic 2000 panel Comprehensive Metabolic Panel Routine Type 2 diabetes mellitus without complication, without long-term current use of insulin (HCC) Expected: 04/01/2019, Expires: 01/02/2020 [facility] Comment on above: Expected: 04/01/2019, Expires: 0 Start: 04-01-2019 End: 01-02-2020 Hemoglobin A1c/Hemoglobin.total mass fraction (Bld) Hemoglobin A1c Routine Type 2 diabetes mellitus without complication, without long-term current use of insulin (HCC) Expected: 04/01/2019, Expires: 01/02/2020 [facility] Comment on above: Expected: 04/01/2019, Expires: 0 Start: 04-01-2019 End: 01-02-2020 Hepatitis C antibody measurement Hepatitis C Antibody Routine Need for hepatitis C screening test Expected: 04/01/2019, Expires: 01/02/2020 [facility] Comment on above: Expected: 04/01/2019, Expires: 0 Start: 04-01-2019 End: 01-02-2020 Microalbumin measurement, urine, quantitative Microalbumin, Urine, Random Routine Type 2 diabetes mellitus without complication, without long-term current use of insulin (HCC) Expected: 04/01/2019, Expires: 01/02/2020 [facility] Comment on above: Expected: 04/01/2019, Expires: 0 Start: 03-16-2019 End: 03-16-2019 Office Visit 03/16/2019 Office Visit General Surgery Braden Gee MD [address] [place] [address] [phone] [facility] Start: 02-27-2019 End: 02-27-2019 Appointment [facility] Comment on above: BREAST LUMPECTOMY WITH SENTINEL NODE BIO PSY WITH NEEDLE LOCALIZATION AND POSSIBLE AXILLARY DISSECTION Start: 02-21-2019 End: 02-21-2019 Office Visit 02/21/2019 Office Visit Pre-Admission Testing [facility] Preadmission Testing Start: 02-15-2019 End: 02-15-2019 Office Visit 02/15/2019 Office Visit General Surgery Braden Gee MD [address] [facility] [address] [place] [address] [phone] [facility] Start: 02-15-2019 Diabetic foot [facility] Start: 02-15-2019 Diabetic retinal eye exam [facility] Start: 02-15-2019 Glaucoma screening EYE EXAM [facility] [employer] [facility] Start: 02-15-2019 Microalbumin measurement, urine, quantitative URINE MICROALBUMIN TEST [facility] Start: 02-15-2019 Urine screening for protein URINE MICROALBUMIN TEST [facility] Start: 02-10-2019 Lipid panel LIPIDS [facility] Start: 02-10-2019 LIPIDS LIPIDS [facility] Start: 02-02-2019 End: 02-02-2019 Office Visit 02/02/2019 Office Visit General Surgery Braden Gee MD [address] [facility] [address] [place] [address] [phone] [facility] Start: 01-31-2019 Hospital Encounter 01/31/2019 Hospital Encounter Braden Gee MD [address] [facility] [address] [place] [address] [phone] [facility] Start: 01-30-2019 End: 01-30-2019 Office Visit 01/30/2019 Office Visit General Surgery Braden Gee MD [address] [facility] [address] [place] [address] [phone] [facility] Start: 01-09-2019 End: 03-02-2020 MG Breast - bilateral screening Mammography Screening Bilateral Routine Breast cancer screening Expected: 01/09/2019, Expires: 03/02/2020 [facility] Comment on above: Expected: 01/09/2019, Expires: 0 Start: 12-08-2018 Mammography MAMMOGRAM [facility] Start: 12-08-2018 Protein mass conc MAMMOGRAM [facility] Start: 12-08-2018 Screening mammography Mammogram [facility] Start: 11-30-2018 Pneumococcal Vaccine: Ped or At-Risk (2 - PCV) Pneumococcal Vaccine: Ped or At-Risk (2 - PCV) [facility] Start: 11-30-2018 Pneumococcal Vaccine: Ped or At-Risk (2 of 4 - PCV13) Pneumococcal Vaccine: Ped or At-Risk (2 of 4 - PCV13) [facility] Start: 11-30-2018 Pneumococcal Vaccine: Pediatrics (0 to 5 Years) and At-Risk Patients (6 to 64 Years) (2 of 2 - PCV) Pneumococcal Vaccine: Pediatrics (0 to 5 Years) and At-Risk Patients (6 to 64 Years) (2 of 2 - PCV) [facility] Start: 08-13-2018 Hemoglobin A1c measurement HBA1C TEST [facility] Start: 07-20-2018 Administration of herpes zoster vaccine Zoster Vaccines (2 of 2) [facility] Start: 2012 Screening for malignant neoplasm of colon [facility] Start: 2012 Zoster vaccine hzv live for subcutaneous use ZOSTER (SHINGLES) VACCINE (1 of 2) [facility] Start: 2002 Screening for malignant neoplasm of breast Mammogram [facility] Start: 1992 Screening for malignant neoplasm of cervix HPV/Cotest [facility] Start: 1981 Hepatitis A Vaccines (1 of 2 - Risk 2-dose series) Hepatitis A Vaccines (1 of 2 - Risk 2-dose series) [facility] Start: 1980 Diabetes: Estimated Glomerular Filtration Rate for Kidney Health Diabetes: Estimated Glomerular Filtration Rate for Kidney Health [facility] Start: 1980 Diabetes: Urine Albumin-Creatinine Ratio for Kidney Health Diabetes: Urine Albumin-Creatinine Ratio for Kidney Health [facility] Start: 1980 Hepatitis C screening Hepatitis C Screening [facility] Start: 1978 COVID-19 Vaccine (1 of 2) COVID-19 Vaccine (1 of 2) [facility] Start: 1978 COVID-19 Vaccine (1) COVID-19 Vaccine (1) [facility] Start: 1977 HIV screening HIV Screening [facility] Start: 1974 COVID-19 Vaccine (1) COVID-19 Vaccine (1) [facility] Start: 1974 Depression Screening Depression Screening [facility] Start: 1972 Albumin DL <= 20 mg/L mass conc (U) URINE MICROALBUMIN [facility] Start: 1972 Diabetic foot examination [facility] Start: 1972 Glaucoma screening Diabetes: Retinopathy Screening [facility] Start: 1972 Ophthalmic examination and evaluation OPHTHALMOLOGY EXAM [facility] Start: 1972 Preventive dental service Diabetes: Dental Exam [facility] Start: 1968 Pneumococcal Vaccine: Pediatrics (0 to 5 Years) and At-Risk Patients (6 to 64 Years) (1 of 4 - PCV13) Pneumococcal Vaccine: Pediatrics (0 to 5 Years) and At-Risk Patients (6 to 64 Years) (1 of 4 - PCV13) [facility] Start: 1965 History and physical examination, annual for health maintenance Wellness Visit [facility] Start: 1963 MMR Vaccines (1 of 1 - Standard series) MMR Vaccines (1 of 1 - Standard series) [facility] Start: 1962 COVID-19 VACCINE (#1) COVID-19 VACCINE (#1) [facility] Start: 1962 Examination of skin Derm Melanoma Skin Check [facility] Start: 1962 Depression screening using PHQ-9 (Patient Health Questionnaire 9) score DEPRESSION SCREENING (PHQ9) [facility] Start: 1962 Hemoglobin A1c measurement Diabetes: Hemoglobin A1C [facility] Start: 1962 Hepatitis C antibody, confirmatory test HEPATITIS C SCREENING [facility] Start: 1962 HIV screening HIV Screening [facility] Start: 1962 Lipid panel Lipid Panel [facility] Start: 1962 Screening for malignant neoplasm of colon [facility] End: 07-30-2023 12 lead ECG ECG 12 Lead ECG Routine Nausea and vomiting, unspecified vomiting type Diarrhea, unspecified type Calculus of gallbladder without cholecystitis without obstruction 1 Occurrences starting 07/30/2022 until 07/30/2023 [facility] Comment on above: 1 Occurrences starting 07/30/2022 until 07/30/2023 24 hour urine calciu m output measurement [facility] End: 02-06-2020 Basic metabolic 2000 panel Basic metabolic panel Routine Malignant neoplasm of right female breast, unspecified estrogen receptor status, unspecified site of breast (HCC) 1 Occurrences starting 02/05/2019 until 02/06/2020 [facility] Comment on above: 1 Occurrences starting 02/05/2019 until 02/06/2020 End: 07-01-2026 Basic metabolic 2000 panel - Serum or Plasma Basic metabolic panel Lab Routine Hyperparathyroidism (HCC) 1 Occurrences starting 07/01/2025 until 07/01/2026 [facility] Work Phone: Comment on above: 1 Occurrences starting 07/01/2025 until 07/01/2026 End: 07-30-2023 CBC panel - Blood by Automated count CBC Lab Routine Nausea and vomiting, unspecified vomiting type Diarrhea, unspecified type Calculus of gallbladder without cholecystitis without obstruction 1 Occurrences starting 07/30/2022 until 07/30/2023 [facility] Work Phone: Comment on above: 1 Occurrences starting 07/30/2022 until 07/30/2023 End: 07-01-2026 CBC panel - Blood by Automated count CBC Lab Routine Hyperparathyroidism (HCC) 1 Occurrences starting 07/01/2025 until 07/01/2026 [facility] Comment on above: 1 Occurrences starting 07/01/2025 until 07/01/2026 End: 02-06-2020 Complete blood count with white cell differential, manual CBC and differential Routine Malignant neoplasm of right female breast, unspecified estrogen receptor status, unspecified site of breast (HCC) 1 Occurrences starting 02/05/2019 until 02/06/2020 [facility] Comment on above: 1 Occurrences starting 02/05/2019 until 02/06/2020 End: 07-30-2023 Comprehensive metabolic 2000 panel - Serum or Plasma Comprehensive Metabolic Panel Lab Routine Nausea and vomiting, unspecified vomiting type Diarrhea, unspecified type Calculus of gallbladder without cholecystitis without obstruction 1 Occurrences starting 07/30/2022 until 07/30/2023 [facility] Comment on above: 1 Occurrences starting 07/30/2022 until 07/30/2023 End: 12-21-2023 Comprehensive metabolic 2000 panel - Serum or Plasma Comprehensive Metabolic Panel Lab Routine Type 2 diabetes mellitus without complication, without long-term current use of insulin (HCC) 1 Occurrences starting 12/21/2022 until 12/21/2023 [facility] Comment on above: 1 Occurrences starting 12/21/2022 until 12/21/2023 End: 03-24-2024 Comprehensive metabolic 2000 panel - Serum or Plasma Comprehensive Metabolic Panel Lab Routine Type 2 diabetes mellitus without complication, without long-term current use of insulin (HCC) 1 Occurrences starting 03/24/2023 until 03/24/2024 [facility] Comment on above: 1 Occurrences starting 03/24/2023 until 03/24/2024 End: 10-03-2024 Comprehensive metabolic 2000 panel - Serum or Plasma Comprehensive Metabolic Panel Lab Routine Type 2 diabetes mellitus without complication, without long-term current use of insulin (HCC) 1 Occurrences starting 10/03/2023 until 10/03/2024 [facility] Comment on above: 1 Occurrences starting 10/03/2023 until 10/03/2024 End: 10-24-2025 Comprehensive metabolic 2000 panel - Serum or Plasma Comprehensive Metabolic Panel Lab Routine Type 2 diabetes mellitus without complication, without long-term current use of insulin (HCC) 1 Occurrences starting 10/24/2024 until 10/24/2025 [facility] Comment on above: 1 Occurrences starting 10/24/2024 until 10/24/2025 End: 08-10-2023 Hemoglobin A1c/Hemoglobin.total in Blood Hemoglobin A1c Lab Routine Type 2 diabetes mellitus without complication, without long-term current use of insulin ([facility]) 1 Occurrences starting 08/10/2022 until 08/10/2023 [facility] Work Phone: Comment on above: 1 Occurrences starting 08/10/2022 until 08/10/2023 Hemoglobin A1c/Hemoglobin.total in Blood Hemoglobin A1c Lab Routine Type 2 diabetes mellitus without complication, without long-term current use of insulin (HCC) 08/10/2022 3:29 PM EDT [facility] End: 12-21-2023 Hemoglobin A1c/Hemoglobin.total in Blood Hemoglobin A1c Lab Routine Type 2 diabetes mellitus without complication, without long-term current use of insulin ([facility]) 1 Occurrences starting 12/21/2022 until 12/21/2023 [facility] Comment on above: 1 Occurrences starting 12/21/2022 until 12/21/2023 End: 03-24-2024 Hemoglobin A1c/Hemoglobin.total in Blood Hemoglobin A1c Lab Routine Essential hypertension 1 Occurrences starting 03/24/2023 until 03/24/2024 [facility] Comment on above: 1 Occurrences starting 03/24/2023 until 03/24/2024 End: 10-03-2024 Hemoglobin A1c/Hemoglobin.total in Blood Hemoglobin A1c Lab Routine Type 2 diabetes mellitus without complication, without long-term current use of insulin (HCC) 1 Occurrences starting 10/03/2023 until 10/03/2024 [facility] Comment on above: 1 Occurrences starting 10/03/2023 until 10/03/2024 End: 10-24-2025 Hemoglobin A1c/Hemoglobin.total in Blood Hemoglobin A1c Lab Routine Type 2 diabetes mellitus without complication, without long-term current use of insulin (HCC) 1 Occurrences starting 10/24/2024 until 10/24/2025 [facility] Comment on above: 1 Occurrences starting 10/24/2024 until 10/24/2025 End: 02-06-2020 Injection of sentinel lymph node using ultrasound guidance [place] Nodes Injection Only Routine Malignant neoplasm of right female breast, unspecified estrogen receptor status, unspecified site of breast (HCC) 1 Occurrences starting 02/05/2019 until 02/06/2020 [facility] Comment on above: 1 Occurrences starting 02/05/2019 until 02/06/2020 End: 02-06-2020 INR Coag (PPP) [Relative time] PT/INR Routine Malignant neoplasm of right female breast, unspecified estrogen receptor status, unspecified site of breast (HCC) 1 Occurrences starting 02/05/2019 until 02/06/2020 [facility] Comment on above: 1 Occurrences starting 02/05/2019 until 02/06/2020 End: 12-21-2023 Lipid 1996 panel - Serum or Plasma Lipid Panel Lab Routine Type 2 diabetes mellitus without complication, without long-term current use of insulin (HCC) 1 Occurrences starting 12/21/2022 until 12/21/2023 [facility] Comment on above: 1 Occurrences starting 12/21/2022 until 12/21/2023 End: 03-24-2024 Lipid 1996 panel - Serum or Plasma Lipid Panel Lab Routine Type 2 diabetes mellitus without complication, without long-term current use of insulin (HCC) 1 Occurrences starting 03/24/2023 until 03/24/2024 [facility] Comment on above: 1 Occurrences starting 03/24/2023 until 03/24/2024 End: 10-03-2024 Lipid 1996 panel - Serum or Plasma Lipid Panel Lab Routine Type 2 diabetes mellitus without complication, without long-term current use of insulin (HCC) 1 Occurrences starting 10/03/2023 until 10/03/2024 [facility] Comment on above: 1 Occurrences starting 10/03/2023 until 10/03/2024 End: 10-24-2025 Lipid 1996 panel - Serum or Plasma Lipid Panel Lab Routine Type 2 diabetes mellitus without complication, without long-term current use of insulin (HCC) 1 Occurrences starting 10/24/2024 until 10/24/2025 [facility] Comment on above: 1 Occurrences starting 10/24/2024 until 10/24/2025 End: 04-07-2020 Mammography Needle Localization Right Mammography Needle Localization Right Routine Malignant neoplasm of right female breast, unspecified estrogen receptor status, unspecified site of breast (HCC) 1 Occurrences starting 02/05/2019 until 04/07/2020 [facility] Comment on above: 1 Occurrences starting 02/05/2019 until 04/07/2020 MG Breast - bilatera l screening Mammography Screening [facility] Bilateral Imaging Routine Invasive ductal carcinoma of breast, female, right (HCC) 01/22/2021 3:16 PM EST [facility] End: 06-11-2020 MG Breast - left screening Mammography Screening Left Imaging Routine Invasive ductal carcinoma of breast, female, right (HCC) 1 Occurrences starting 06/11/2019 until 06/11/2020 [facility] Comment on above: 1 Occurrences starting 06/11/2019 until 06/11/2020 End: 06-11-2020 MG Breast - right diagnostic Mammography Diagnostic Right Imaging Routine Invasive ductal carcinoma of breast, female, right (HCC) 1 Occurrences starting 06/11/2019 until 06/11/2020 [facility] Comment on above: 1 Occurrences starting 06/11/2019 until 06/11/2020 End: 12-21-2023 Microalbumin measurement, urine, quantitative Microalbumin/Creatinine Ratio, UR Random Lab Routine Type 2 diabetes mellitus without complication, without long-term current use of insulin (HCC) 1 Occurrences starting 12/21/2022 until 12/21/2023 [facility] Comment on above: 1 Occurrences starting 12/21/2022 until 12/21/2023 End: 03-24-2024 Microalbumin measurement, urine, quantitative Microalbumin/Creatinine Ratio, UR Random Lab Routine Type 2 diabetes mellitus without complication, without long-term current use of insulin ([facility]) 1 Occurrences starting 03/24/2023 until 03/24/2024 [facility] Comment on above: 1 Occurrences starting 03/24/2023 until 03/24/2024 End: 10-03-2024 Microalbumin measurement, urine, quantitative Microalbumin/Creatinine Ratio, UR Random Lab Routine Type 2 diabetes mellitus without complication, without long-term current use of insulin ([facility]) 1 Occurrences starting 10/03/2023 until 10/03/2024 [facility] Comment on above: 1 Occurrences starting 10/03/2023 until 10/03/2024 End: 10-24-2025 Microalbumin measurement, urine, quantitative Microalbumin/Creatinine Ratio, UR Random Lab Routine Type 2 diabetes mellitus without complication, without long-term current use of insulin ([facility]) 1 Occurrences starting 10/24/2024 until 10/24/2025 [facility] Comment on above: 1 Occurrences starting 10/24/2024 until 10/24/2025 Microscopic examinat ion of vaginal Papanicolaou smear Thinprep Pap Smear Pathology and Cytology Routine Pap smear for cervical cancer screening Ordered: 10/03/2023 [facility] Work Phone: Comment on above: Ordered: 10/03/2023 SARS-CoV-2 (COVID-19 ) RdRp gene [Presence] in Respiratory specimen by LORENA with probe detection COVID-19, Molecular Microbiology Routine Exposure to 2019 novel coronavirus Ordered: 07/26/2021 [facility] Work Phone: Comment on above: Ordered: 07/26/2021 End: 05-27-2026 SPECT+CT Parathyroid gland NM Parathyroid Planar SPECT CT Imaging Routine Hyperparathyroidism ([facility]) 1 Occurrences starting 05/27/2025 until 05/27/2026 [facility] Work Phone: Comment on above: 1 Occurrences starting 05/27/2025 until 05/27/2026 End: 12-21-2023 Thyrotropin [Units/volume] in Serum or Plasma TSH with Reflex Free T4 Lab Routine Type 2 diabetes mellitus without complication, without long-term current use of insulin ([facility]) 1 Occurrences starting 12/21/2022 until 12/21/2023 [facility] Work Phone: Comment on above: 1 Occurrences starting 12/21/2022 until 12/21/2023 End: 03-24-2024 Thyrotropin [Units/volume] in Serum or Plasma TSH with Reflex Free T4 Lab Routine Type 2 diabetes mellitus without complication, without long-term current use of insulin ([facility]) 1 Occurrences starting 03/24/2023 until 03/24/2024 [facility] Work Phone: Comment on above: 1 Occurrences starting 03/24/2023 until 03/24/2024 End: 10-03-2024 Thyrotropin [Units/volume] in Serum or Plasma TSH with Reflex Free T4 Lab Routine Type 2 diabetes mellitus without complication, without long-term current use of insulin (HCC) 1 Occurrences starting 10/03/2023 until 10/03/2024 [facility] Comment on above: 1 Occurrences starting 10/03/2023 until 10/03/2024 End: 10-24-2025 Thyrotropin [Units/volume] in Serum or Plasma TSH with Reflex Free T4 Lab Routine Type 2 diabetes mellitus without complication, without long-term current use of insulin ([facility]) 1 Occurrences starting 10/24/2024 until 10/24/2025 [facility] Comment on above: 1 Occurrences starting 10/24/2024 until 10/24/2025 Tissue exam [facility] [employer] [facility] Work Phone: Comment on above: Release Upon Ordering for 1 Occurrences starting 10/27/2023 Tissue exam Tissue exam Path ology and Cytology Timed Neoplasm of uncertain behavior of skin Release Upon Ordering for 1 Occurrences starting 05/01/2024 [facility] Work Phone: Comment on above: Release Upon Ordering for 1 Occurrences starting 05/01/2024 End: 01-31-2020 Ultrasonography guided biopsy of right breast US Breast Biopsy Right Routine Abnormal mammogram of right breast 1 Occurrences starting 01/30/2019 until 01/31/2020 [facility] Comment on above: 1 Occurrences starting 01/30/2019 until 01/31/2020 End: 08-19-2021 US Axilla Only Right (Breast Related) US Axilla Only Right (Breast Related) Imaging Routine Axillary fullness 1 Occurrences starting 08/19/2020 until 08/19/2021 [facility] Comment on above: 1 Occurrences starting 08/19/2020 until 08/19/2021 End: 05-27-2026 US Head and neck soft tissue US Soft Tissue Neck Imaging Routine Hyperparathyroidism (HCC) 1 Occurrences starting 05/27/2025 until 05/27/2026 [facility] Comment on above: 1 Occurrences starting 05/27/2025 until 05/27/2026 End: 02-23-2021 US Soft Tissue Neck and Thyroid US Soft Tissue Neck and Thyroid Imaging Routine Neck swelling Once for 1 Occurrences starting 02/23/2021 until 02/23/2021 [facility] Comment on above: Once for 1 Occurrences starting 02/24/20 until 02/23/2021 US Soft Tissue Neck and Thyroid US Soft Tissue Neck and Thyroid Imaging Routine Neck swelling 02/23/2021 1:00 PM EDT [facility] End: 06-19-2020 XR Bone Density DEXA Axial and Appendicular XR Bone Density DEXA Axial and Appendicular Imaging Routine Invasive ductal carcinoma of breast, female, right (HCC) 1 Occurrences starting 06/19/2019 until 06/19/2020 [facility] Comment on above: 1 Occurrences starting 06/19/2019 until 06/19/2020 End: 08-16-2019 XR Bone Density DEXA Axial and Appendicular XR Bone Density DEXA Axial and Appendicular Imaging Routine Invasive ductal carcinoma of breast, female, right (HCC) Once for 1 Occurrences starting 08/16/2019 until 08/16/2019 [facility] Comment on above: Once for 1 Occurrences starting 08/16/20 until 08/16/2019 XR Bone Density DEXA Axial and Appendicular XR Bone Density DEXA Axial and Appendicular Imaging Routine Invasive ductal carcinoma of breast, female, right (HCC) 08/16/2019 12:43 PM EDT [facility] End: 04-09-2019 XR Ribs Right 3+ Views (Standard) XR Ribs Right 3+ Views (Standard) Routine Rib pain on right side Once for 1 Occurrences starting 04/09/2019 until 04/09/2019 [facility] Comment on above: Once for 1 Occurrences starting 04/09/20 until 04/09/2019 XR Ribs Right 3+ Vie ws (Standard) XR Ribs Right 3+ Views (Standard) Routine Rib pain on right side 04/09/2019 2:43 PM EDT [facility] Immunizations Immunization Date Immunization Notes Care Provider Fa john 09-12-2024 influenza virus vacc ine, unspecified formulation Robbie Santo MD Work Phone: [facility] 09-16-2023 influenza virus vacc ine, unspecified formulation Shannan Cevallos PA-C Work Phone: [facility] 03-24-2023 Pneumococcal Conjuga te 20-Valent (Prevnar 20) Elo Ogden MD Work Phone: [facility] 03-24-2023 pneumococcal conj. 20-valent (PREVNAR 20) 0.5 mL vaccine Elo Ogden MD Work Phone: [facility] 08-31-2022 influenza virus vacc ine, unspecified formulation Oh JOHANSEN Work Phone: [facility] 09-22-2021 influenza, injectabl e, quadrivalent, preservative free Dereje Trejo MD Work Phone: [facility] 02-06-2021 Pfizer SARS-CoV-2 Vaccination Dereje Trejo MD Work Phone: [facility] 01-16-2021 Pfizer SARS-CoV-2 Vaccination Dereje Trejo MD Work Phone: [facility] 08-22-2020 influenza, injectabl e, quadrivalent, preservative free Dereje Trejo MD Work Phone: [facility] 08-23-2019 Influenza, injectabl e, Madin Krystyna Canine Kidney, quadrivalent with preservative Dereje Trejo [facility] 12-25-2018 HEMOGLOBIN A1C Dereje Trejo [facility] 08-15-2018 influenza, injectabl e, quadrivalent, preservative free Dereje Trejo [facility] 08-15-2018 zoster vaccine recombinant Dereje Trejo MD Work Phone: [facility] 05-25-2018 zoster vaccine recombinant Dereje Trejo [facility] 11-30-2017 pneumococcal polysaccharide vaccine, 23 valent Dereje Trejo [facility] 10-31-2017 tetanus toxoid, redu sreekanth diphtheria toxoid, and acellular pertussis vaccine, adsorbed [facility] 10-31-2017 influenza virus vacc ine, unspecified formulation Chiquis Vargas MD Work Phone: [facility] 08-12-2017 influenza, live, intranasal, quadrivalent Chiquis Vargas MD Work Phone: [facility] 08-17-2012 influenza virus vacc ine, whole virus [facility] 09-21-2011 influenza virus vacc ine, whole virus [facility] Amirmdni [facility] 10-06-2010 influenza virus vacc ine, whole virus [facility] 07-17-2008 tetanus toxoid, redu sreekanth diphtheria toxoid, and acellular pertussis vaccine, adsorbed [facility] 05-29-1998 TD(adult) unspecifie d formulation [facility] Payers Date Payer Category Payer Self-pay 2024 Miscellaneous or Other FIDEL LAINEZ HMO [id number] 2021 Unknown [id number] 2016 [facility] FIDEL FERGUSON UE/PREF/HMO/PPO [id number] 2016 Unknown 2016 Unknown ANTHEM ANTHEM BLUE/PREF/HMO/PPO xxxxxxxxxxxx 2016-Present [id number] 2016 Unknown [id number] [id number] .[id number] 2016 Blue Cross Blue [facility] [id number] 2016 Unknown [id number] 1960 Unknown [id number] 2.16840.1.145893.3.579.2 .903 1960 Unknown [id number] 2.16.840.1.457433.3.579.2 .903 1962 Unknown [id number] 2.16.840.1.015906.3.579.2 .903 1962 Unknown [id number] 2.16.840.1.019975.3.579.2 .983 1962 Unknown [id number] 2.16.840.1.972234.3.579.2 .902 1962 Unknown [id number] 2.16.840.1.576875.3.579.2 .902 1962 Unknown [id number] 2.16.840.1.676362.3.579.2 .902 1962 Unknown [id number] 2.16.840.1.031872.3.579.2 .903 1962 Unknown [id number] 2.16.840.1.346948.3.579.2 .1962 Unknown [id number] 2.16.840.1.668138.3.579.2 .1962 Unknown [id number] 2.16.840.1.831608.3.579.2 .1962 Unknown [id number] 2.16.840.1.928523.3.579.2 .1962 Unknown [id number] 2..840.1.718761.3.579.2 .1960 Unknown [id number] 2..840.1.042437.3.579.2 1962 Unknown [id number] 2.840.1.371105.3.579.2 1962 Unknown [id number] 2.840.1.793452.3.579.2 1962 Unknown [id number] 2..840.1.488602.3.579.2 1962 Unknown [id number] 2.16.840.1.228830.3.579.2 .1960 Unknown [id number] 2.840.1.447036.3.579.2 1962 Unknown [id number] 2.16.840.1.418087.3.579.2 .1960 Unknown [id number] 2.16.840.1.624938.3.579.2 .1960 Unknown [id number] 2.16.840.1.457171.3.579.2 .1960 Unknown [id number] 2.16.840.1.065876.3.579.2 Unknown [id number] 2.16.840.1.512187.3.579.2 .462 Unknown [id number] 2.16.840.1.025157.3.579.2 .462 Unknown [id number] 2.16.840.1.798983.3.579.2 .462 Unknown [id number] 2.16.840.1.979982.3.579.2 .462 Unknown [id number] 2.840.1.749147.3.579.2 .462 Unknown [id number] 2.16.840.1.658166.3.579.2 .462 Social History Date Type Detail Facility Start: 01-02-2019 End: 07-26-2025 Tobacco smoking status NHIS Never smoker [facility] Start: 08-09-2018 Alcohol Comment SOCIALLY [facility] Start: 1960 Sex Assigned At Not on file [facility] Start: 09-20-2019 End: 09-03-2025 Alcohol intake Ex-drinker (finding) [facility] Start: 01-24-2022 End: 03-24-2023 Exposure to SARS-CoV-2 (event) Not sure [facility] Start: 08-19-2020 End: 06-08-2022 Tobacco use and exposure Never used [facility] Start: 05-26-2021 End: 08-18-2023 Alcohol intake Current drinker of alcohol (finding) [facility] Start: 05-26-2021 End: 09-23-2022 Alcohol intake [facility] Start: 05-28-2021 Alcohol Comment occasional [facility] Start: 07-19-2022 End: 09-23-2022 History SDOH Financial 5 [facility] Start: 07-19-2022 End: 09-23-2022 History SDOH Food Worry 1 [facility] Start: 07-19-2022 End: 09-23-2022 History SDOH Transport Med 2 [facility] Start: 08-05-2022 Alcohol Comment rarely [facility] Start: 09-23-2022 History SDOH Alcohol Std Drinks 0 [facility] Start: 09-23-2022 History SDOH Social Connections Phone 4 [facility] Start: 09-23-2022 History SDOH Social Connections Rastafarian 3 [facility] Start: 09-23-2022 End: 05-20-2025 Humiliation, Afraid, Rape, and Kick questionnaire [HARK] [facility] Within the last year , have you been afraid of your partner or ex-partner? No [facility] Are you now , , , , never or living with a partner? [facility] How often to you hav e a drink containing alcohol? Monthly or less [facility] How many standard dr inks containing alcohol do you have on a typical day? Patient does not drink [facility] How often do you hav e 6 or more drinks on 1 occasion? Never [facility] Do you feel stress - tense, restless, nervous, or anxious, or unable to sleep at night because your mind is troubled all the time - these days [OSQ] Only a little [facility] (I/We) worried wheth er (my/our) food would run out before (I/we) got money to buy more. Never true [facility] Start: 10-07-2017 Gender identity Identifies as female gender (finding) [facility] Start: 03-08-2019 Sexual orientation Heterosexual (finding) [facility] Start: 10-27-2023 [facility] Tobacco smoking consumption unknown [facility] Start: 1960 Sex Assigned At Female [facility] Medical Equipment Procedure Code Equipment Code Equipment Origin al Text Equipment Identifier Dates Hemostat 1gm César sta - [id number] FDA Start: 02-27-2019 Hemostat 4 X 4in Surgicel Snow Sterl - Sna [id number] 21)[id number], [id number] FDA Start: 08-12-2022 Goals Date Patient Goal Desired Activity /State Personal health goal Comment on above: Formatting of this n ote might be different from the original. Get 1200 mg Calcium/ 1000 IU Vit D daily for bone health Comment on above: Get 1200 mg Calcium/ 1000 IU Vit D daily for bone health Formatting of this n ote might be different from the original. Get 1200 mg Calcium/ 1000 IU Vit D daily for bone health Clinical Notes 04-06-2019 to 09-12-2025 Note Date & Type Note Facility 09-12-[address] [facility] 09-12-2025 Progress note Note Date/Time September 12, 2025 3:42pm [facility] [address] [place] [address] OFFICE VISIT Date of Service: 09/12/25 MR#: [id number] Acct: [id number] Name: LYN HARRY Rep #: [id number] : 1960 Provider: Dr. Alejandro Caraballo MD Age/Sex: 65/F Location: [facility] Status: Signed Intake Vital Signs 07/26/25 14:41 09/12/25 14:25 Height 5 ft 4 in 5 ft 4 in Weight: 206 lb 206 lb BMI 35.3 35.3 BP 124/80 H 161/90 H Blood Pressure Location Rt brachial Rt brachial Position Sitting Sitting Respiration 16 16 Intake Visit Reasons: LAB RESULTS, DISCUSS FURTHER STEPS Chief Complaint: Discuss testing Coating Manager Required: No Is patient in pain?: No Allergies Penicillins (PCN) Allergy (Mild, Verified 09/12/25 14:26) Hives Medications ?Medication ?Instructions ?Recorded ?Confirmed ?Type atorvastatin 40 mg tablet (Lipitor) 40 mg PO QDAY 06/2909/12/25 History famotidine 20 mg tablet 20 mg PO BID 07/26/25 History lisinopril 10 mg tablet 10 mg PO QDAY 07/26/2509/12 History metformin 500 mg tablet,extended 500 mg PO BID 5 09/12/25 History release 24 hr Have you fallen in the past year?: No PFSH Medical History Parathyroid adenoma Low vitamin D level Serum calcium elevated Elevated parathyroid hormone Fatigue Acid reflux HTN (hypertension) Diabetes Breast cancer Surgical History S/P lumpectomy, right breast S/P tubal ligation Hx of exploratory laparotomy S/P D&C (status post dilation and curettage) S/P section S/P laparoscopic cholecystectomy S/P appendectomy Social History (Reviewed 10/16/25 @ 14:25 by Valery Garsia Smoking Status: Never smoker alcohol intake: never HPI HPI HPI: Patient is a 65-year old female who presents for a second opinion related to a diagnosis of hyperparathyroidism. They are referred from Dr. Hinton. This represents her second visit after initial consultation visit 07/26/2025. In the interim she completed 24-hour urine calcium assay as well as repeat DEXA imaging. Labs were also repeated and she was found to be vitamin D deficient soshe was started on more aggressive supplementation. Outside of the above she denies any significant health changes. Below is recapitulated from patient's initial consultation visit for ease review: Patient is a 65-year old female who presents for a second opinion related to a diagnosis of hyperparathyroidism. They are referred from Dr. Hinton. Patient states she presented to a survivorship clinic after a diagnosis of breast cancerearlier this summer and answered that she was feeling some fatigue. It was thenher laboratories were tested and she was found to have some hypercalcemia and some vitamin D deficiency. Parathyroid hormone also was tested and found to be elevated. Since that time she completed parathyroid ultrasound, sestamibi imaging and even met with a surgeon. She shares that she was scheduled for surgery yesterday, however, was unconvinced of her need for the operation and did not completely mesh with the surgeon she met with. Patient has a history of 2 prior bone density tests. She shares the first test showed some bone loss and between the this result and her use of Arimidex for her breast cancer she was placed on Prolia. She notes that the second DEXA scanobtained 2 years ago showed some improvement in this bone loss but she has sincebeen discontinued of a Prolia and is pending a follow-up DEXA scan in August. Unfortunately none of these results are immediately available. Patient has no history of pathologic fractures or bony fractures otherwise. Patient has no history of kidney stones, but does relate an experience over period of about a week where she felt self-limited flank pain on bilateral flanks. Patient has nohistory of frequent dental caries or chipped teeth. Patient has no history of brittle fingernails. Patient does have a history of GERD for which she takes famotidine, but notes it has been somewhat worse of late despite rather consistent dietary modification. Patient also has a history of hypertension, but her blood pressure control has been stable/adequate. Additional symptoms include: Pertinent positives: Fatigue (as noted above), pertinent negatives: Denial of difficulty concentrating, denial of depression. Patient has a history of prior radiation exposure. Patient has no family history of other endocrinopathies Patient [does/does not] have a diet high in dairy. Patient's current labs are calcium: 10.3 mg/dL 05/20/2025 (range of 8.4-10.2), Vitamin D: 16 ng/mL 05/20/2025 , Ionized calcium: [Value]mg/dL [date], PTH: 125 pg/mL 05/20/2025 (range 12-65) Current medications include: Vitamin D3 25 mcg daily. Imaging has been done parathyroid ultrasound on 05/30/2025 and showed a "1.7 cm hypoechoic nodule identified in the right parathyroid bed, suspicious for parathyroid adenoma". Additionally sestamibi scan was performed with SPECT-CT showing "parathyroid adenoma in the right thyroid bed posterior to the mid right thyroid lobe where a nodule is present measuring 7.4 mm" Patient has had DEXA imaging (as above 2 years ago and is pending repeat study 09/03/2025). Patient has not had renal imaging. ROS General General: Yes fatigue and breast cancer; No weight change, appetite, colon cancer or weakness HEENT HEENT: No difficulty swallowing, eye injury, eye surgery, swollen glands or hoarseness Endo Endocrine: Yes diabetes mellitus; No thyroid disease, thyroid cancer, Hair loss, heat intolerance or cold intolerance Skin Skin: No rash or changing moles Breast Breast: No left breast lump, right breast lump, nipple discharge, breast pain, abnormal mammogram, abnormal US or breast enlargement Musc Musculoskeletal: No back problems, arthritis, rheumatoid arthritis, gout or joint pain Cardio Cardiovascular: Yes high blood pressure; No murmur, pacemaker, heart disease, atrial fibrillation, heart attack, heart stent, palpitations, shortness of breath with exertion or chest pain Psych Psychiatric: No depression, anxiety or hearing voices Resp Respiratory: No shortness of breath, No sleep apnea, No cough, No COPD, No asthma, No emphysema and No wheezing Gastro Gastrointestinal: No abdominal pain, No nausea or vomiting, No diarrhea, No constipation, No blood in stool, Yes acid reflux, No hemorrhoids, No ulcers, No gallbladder problem and No black,tarry stools Wiliam Hematologic: No blood thinners, No blood disorders, No bleeding, No anemia and No blood clots Neuro Neurologic: No system reviewed and no additional complaints, except as documented, No as per HPI, No abnormal gait, No abnormal hearing, No abnormal movements, No abnormal speech, No behavioral changes, No burning sensations, No confusion, No convulsions, No disequilibrium, No dizziness, No localized weakness, No frequent falls, No headache(s), No lack of coordination, No loss of vision, No memory loss, No numbness, No other visual disturbances, No radicular pain, No restless legs, No sensory deficit, No syncope, No tingling, No tremor(s), No weakness and No other Exam Const General: cooperative and comfortable Orientation: alert, awake and oriented x3 Neck Other: Faint contusion to right side of neck right above clavicular head. Under ultrasound exam identify a hypoechoic lesion that is void of Doppler signal in the right mid polar position posterior to the thyroid gland measuring 1.5 x 0.5 cm Assessment and Plan Assessment and Plan (1) Elevated parathyroid hormone: Status: Acute Comment: Patient is 65-year-old female who is referred for second opinion related to concern for primary hyperparathyroidism. She has had extensive workup and was even pending parathyroidectomy with another surgeon when she sought second opinion. In my review of her history and workup I have several concerns related to her diagnosis as it presently stands. Unfortunately her vitamin D has been chronically low and this was the case when her calcium and parathyroid hormone were drawn. I shared with her that diagnosis of primary hyperparathyroidism is made at the biochemical level and relies on and interpretation of her PTH and calcium only once the vitamin D level is confirmed as normal. Thus I discussed my interested in repeating her laboratories now that she has been supplemented on vitamin D, but remain concerned she may still be low and require further supplementation. I then went on to describe the NIH guidelines for asymptomatic hyperparathyroidism and shared that she does not meet this criteria based on her workup to date, but I would like to revisit her bone densitometry as she suggests there may have been some indication of demineralization and believe she should be assessed for hypercalciuria with a 24-hour urine study. I stated it was my preference to understand whether or not she meets criteria for surgical parathyroidectomy based on these answers. I also shared my belief that she may still stand to derive some benefit from parathyroidectomy even if she falls out from these criteria?particularly with her reporting fatigue and her history of hypertension with the risk for hastened atherosclerosis with hyperparathyroidism. I stated that there would be no way to prognosticate preoperatively and this must be counterbalanced with the risks of surgery. Patient and her confirmed understanding of the conversation and expressed their appreciation. They will present now for updated lab testing and we will await the results of her DEXA scan planned for just over a month from now. I will plan to follow-up with her to review all of these results at a subsequent visit. Update 09/12/2025: Reviewed results with patient today in clinic. Repeat laboratory testing showed persistent vitamin D deficiency but she has supplemented as directed and is pending a recheck. I stressed that vitamin D levels would need to be within normal range before proceeding with any operation. Additionally, I discussed her DEXA imaging which showed normal bone mineral density and her 24-hour urine calcium which was abnormal and high at 390.4 mg per 24 hours. I explained that with these results we technically did not reach threshold for surgical indications and therefore offered continued surveillance of the disease process versus proceeding with the information we now have. She shares that her leaning is to proceed with surgery. I suggested that a preemptive approach may be prudent and more reasonable given her co localization with ultrasound and sestamibi. I explained that this co localization and her laboratory values should reflect a probable single adenoma as the causative agent for her primary hyperparathyroidism. I also explained how this means it is reasonable to proceed with a minimally invasive parathyroidectomy with intraoperative PTH monitoring. Hand-drawn schematic's were then used to explain the details of the operation including PTH monitoring with intraoperative draws from the ipsilateral internal jugular vein. I explained the risks of the procedure to include hypoparathyroidism and recurrent laryngeal nerve injury. I expounded upon these risks in light of patient's minimal symptoms/indications to share that I would have a hard time recommending proceeding all the way to a subtotal parathyroidectomy if that is what our intraoperative findings dictated given the risk for hypoparathyroidism as I do not believe the risk for hypoparathyroidism would be justified by the absence of these indications. Patient confirmed understanding. She wishes to proceed with the operation as outlined but understands the importance of normalizing her vitamin D level before proceeding. Lastly I did use bedside ultrasound to localize the hypoechoic lesion in her right neck and believe this could be used to have the operation for incision planning. Plan: ? Repeat vitamin D hydroxy, PTH, and serum calcium today ? Tentatively plan for minimally invasive parathyroidectomy with intraoperative PTH monitoring pending review of the above labs (2) Serum calcium elevated: Status: Acute (3) Low vitamin D level: Status: Acute Comment: Status post retesting with persistently low level. Patient has undergone supplementation. Will retest to determine if her vitamin D level is now repleted. Stressed that this needs to be normal before proceeding with surgical intervention. Plan: ? Follow-up vitamin D 25-hydroxy Orders: Orders PTHIN Today D35.1 - Benign neoplasm of parathyroid gland Calcium,Total Today D35.1 - Benign neoplasm of parathyroid gland Vitamin D,25 Hydroxy Today D35.1 - Benign neoplasm of parathyroid gland Coding Level of Care Code Off vis,est,level 3 Diagnoses Elevated parathyroid hormone R79.89 Serum calcium elevated E83.52 Low vitamin D level R79.89 Clinical Quality Measures Falls Risk Screening/Assistive Devices Have you fallen in the past year?: No 09/12/25 4605 <Electronically signed by Krishna Caraballo MD> Date _ Krishna Caraballo MD Cosigner Signature: Date (if applicable) CC: ELO OGDEN MD ~ [place] [employer] Work Phone: 1(474) 953-967110-09-2025 History of Present illness Narrative* Stephen Solomon MS, [facility] - 09/05/2025 10:52 AM EDT Images from the original note were not included. [facility] [address] [address] STEPHEN SOLOMON MS, [facility] Visit Type: Documentation Only Location: N/A Patient Name: Lyn Harry Date of : 1960 Date: 09/05/2025 Lyn was seen for genetic counseling on 08/28/2025 Genetic test results disclosed via [employer] Results CancerNext-Expanded + RNAinsight Panel at [facility]: NEGATIVE (NO MUTATIONS DETECTED) The genes analyzed in this panel include (77): AIP, ALK, APC, MECHELLE, AXIN2, BAP1, BARD1, BMPR1A, BRCA1, BRCA2, BRIP1, CDC73, CDH1, CDK4, CDKN1B, CDKN2A, CEBPA, CHEK2, CTNNA1, DDX41, DICER1, EGFR, EPCAM, ETV6, FH, FLCN, GATA2, GREM1, HOXB13, KIT, LZTR1, MAX, MBD4, MEN1, MET, MITF, MLH1, MSH2, MSH3, MSH6, MUTYH, NF1, NF2, NTHL1, PALB2, PDGFRA, PHOX2B, PMS2, POLD1, POLE, POT1, ZYFFT0Z, PTCH1, PTEN, RAD51C, RAD51D, RB1, RET, RPS20, RUNX1, SDHA, SDHAF2, SDHB, SDHC, SDHD, SMAD4, SMARCA4, SMARCB1, SMARCE1, STK11, SUFU, DFUZ918, TP53, TSC1, TSC2, VHL, WT1. A copy of the complete genetic test report from [facility] is viewable in the medical record and has been sent to Lyn directly via [employer]. Interpretation Lyn's genetic testing was negative for any clinically significant identifiable mutations in the genes analyzed above. Lyn's test result does not completely eliminate the chance for a hereditary predisposition. It is possible she has a mutation in a gene that our technology cannot detect or has a mutation in a gene that was not tested or has yet to be discovered. Therefore, we encouraged Lyn to contact us in the future to determine if any new genetic testing or research options are available. Recommendations Due to her history of breast cancer, Lyn should continue cancer screening and surveillance asdirected by her physicians. Lyn should consider screening as directed by national guidelines based on her personal and family history, and discuss these with her healthcare providers. Based on the family history of pancreatic cancer, we encourage Lyn to engage in risk-reducingbehaviors, such as avoiding tobacco and heavy alcohol use, maintaining a healthy body weight, and minimizing risk factors for diabetes to help reduce her risk for pancreatic cancer. There are currently no consensus guidelines to support pancreatic cancer screening based on the reported family history. Information for Relatives We discussed cancer risk and management options for family members based on the family history. The National Comprehensive Cancer Network (NCCN) guidelines recommend breast cancer screening for females based on their family history and personal risk factors. Therefore, we encourage Viviennes female relatives to consult with their providers to determine appropriate breast cancer screening with consideration of all relevant risk factors (i.e., per the Katie and/or Tyrer- Cuzick model). Based on the family history of pancreatic cancer, we encourage Lyn's siblings, mother, other maternal relatives, and other paternal relatives to engage in risk-reducing behaviors, such as avoiding tobacco and heavy alcohol use, maintaining a healthy body weight, and minimizing risk factors for diabetes to help reduce their risk for pancreatic cancer. There are currently no consensus guidelines to support pancreatic cancer screening based on the reported family history. Lyn's other relatives should consult with their healthcare providers to discuss their complete personal risk factors, family histories of cancer, and genetic testing status to determine appropriate cancer screening recommendations. Based on Lyn's genetic test results, her children would not be at risk to inherit any disease-causing mutations in the genes analyzed from her. However, they may benefit from genetic testing iftheir personal medical history or the cancer history on the opposite side of the family is suggestive of a hereditary predisposition syndrome. Based on the reported family history, Lyn's mother, other maternal relatives, and paternal aunt may consider genetic counseling and testing. Relatives can locate a genetic counselor at [email or web address] or, if they are local to [place] and wish to be seen by the [facility], they can contact [phone] to schedule an appointment Summary & Plan Lyn's genetic testing was negative for any clinically significant identifiable mutations in the genes analyzed above. Lyn should recontact us if her personal or family history changes, as this may alter our assessment and/or recommendations. The [facility] would be glad to offer our assistance should you have anyquestions or concerns about this information. Please feel free to contact us at [phone]. STEPHEN SOLOMON MS, [facility] Licensed, Certified Genetic Counselor CC: Lyn Estrada Piero Elo Ogden MD [place], Tammy L, [employer] Encl: Pedigree documented in this [id number] History of Present illness Narrative* Stephen Solomon MS, [facility] - 08/28/2025 11:18 AM EDT [facility]: Hereditary Cancer Risk Assessment [facility] [address] [place] [address] STEPHEN SOLOMON MS, [facility] Visit Type: In-Person Location: [facility] Patient Name: Lyn Harry Date of : 1960 Visit Date: 08/28/2025 Start Time: 10:01 AM End Time: 10:59 AM Accompanied by: N/A Reason for Referral Personal history of breast cancer Family history of pancreatic cancer Relevant Personal History Cancer: R) Breast cancer diagnosed at 59 (Invasive Ductal Carcinoma, ER+/AL+/HER2-) Colorectal polyps: 2017 colonoscopy was negative. This was her first and only colonoscopy. Hereditary Genetic Testing History Self: None Relatives: None Relevant Family History Relationship Diagnosis Age at Diagnosis Maternal Uncle Pancreatic cancer 77 Paternal Grandmother Pancreatic cancer 87 All information in this table is per patient report unless otherwise specified. Assessment & Discussion Lyn meets current National Comprehensive Cancer Network (NCCN) guidelines for genetic testing. Level of suspicion for an inherited condition was reviewed with Lyn based on reported relevant history. Risks, benefits, and limitations of genetic testing were discussed, including the possible results and implications of these results on Lyn and her relatives. Provided Lyn with information about the Genetic Information Non- Discrimination Act (SUSAN), genetic testing costs, and insurance coverage. Reviewed options for payment for genetic testing including self-pay and insurance billing. Providedlab-specific financial assistance program information. Plan Genetic testing was recommended and Lyn chose to proceed with the 77-gene CancerNext-Expanded+ RNAinsight Panel from [facility]. Consent for testing was reviewed and verbal informed consent was obtained. A blood sample was drawn following Lyn's appointment and shipped to the laboratory for analysis. We will send results and recommendations to her via [employer] if the results are normal or do not require more detailed discussion. If the results are abnormal or do require a more detailed discussion with Lyn, we will call her with the results when available and these results will also be added to the medical record immediately and released to her via [employer]. Lyn did not provide consent to share her genetic test results and other relevant records, such as family history/pedigree, with any relatives. We spent 58 minutes in discussion [id number] with more than 50% of time spent educating and counseling. Lyn expressed an understanding of the information we discussed, and all of her questions were answered. She was provided with educational materials and resources and was encouraged to contact us with any additional questions. The [facility] would be glad to offer our assistance should you have anyquestions or concerns about this information. Please feel free to contact us at [phone]. STEPHEN SOLOMON MS, [facility] Licensed, Certified Genetic Counselor CC: Lyn Estrada Piero Elo Ogden MD [place], Tammy L, [employer] SAL[employer] ADVISOR documented in this [id number] Evaluation note* Diagnosis Onset Date Resolution Status Admit Date Elevated parathyroid hormone acute July 26, 2025 2:05pm Low vitamin D level acute Augus t 2024 2:05pm Serum calcium elevated acute Au jannette 2024 2:05pm [facility] Work Phone: 1(691) 351-127508-29-2025 Evaluation note* Diagnosis Onset Date Resolution Status Admit Date Elevated parathyroid hormone acute July 26, 2025 2:05pm Low vitamin D level acute Augus t 2024 2:05pm Serum calcium elevated acute Au jannette 2024 2:05pm Elevated parathyroid hormone acute September 12, 2025 2:14pm Low vitamin D level acute Octob er 2024 2:14pm Serum calcium elevated acute Oc tober 2024 2:14pm [facility] Work Phone: [phone]) 486-925308-04-2025 NotePATIENT: Lyn Harry : 1960 AGE: 65 y.o. SEX: female RACE: [1] PCP: Elo Ogden MD REFERRAL: No ref. provider found Note template [employer] PLACE OF SERVICE [x] OFFICE REVIEWED Chart Yes HISTORIAN Source Patient Quality Good Accompanied by Her CC What did my tests show. HPI Patient was initially seen on 05/27/2025: Patient was diagnosed with hypercalcemia and hyperparathyroidism. HYPERPARATHYROIDISM ANALYSIS H/o Kidney stones / failure No Abdominal moans (ie. constipation, etc.) No Psychiatric overtones No Bone pain No PO Calcium or Vit D supplements Was taking Ca but then found to have hypercalcemia, now on Vit D. Thiazide diuretic or Nectar use No XRT to head / neck No Calcium and PTH levels 05/20/2025 iPTH 125 Ca 10.3 U/S or CT neck U/S neck: parathyroid adenoma R mid retrothyroid. Sestamibi / SPECT scan SPECT scan: parathyroid adenoma R mid retrothyroid 7 mm diameter Today she presents to discuss U/S neck and SPECT scan results. She has no new symptoms. ROS Questionnaire Reviewed: Today [x] Pertinent positives listed below [] No pertinent positives [] Unable to obtain CONST GI NEURO [] fevers [] nausea [] seizures [] chills [] vomiting [] syncope [] Fatigue [] constipation [] stroke [] recent weight loss [] diarrhea [] weakness EYES [] blood in stools PSYCH [] double vision [] abdominal pain [] depression [] cataracts [] appetite changes [] anxiety ENT/MOUTH ENDO [] difficulty swallowing [] blood in urine [] high or low blood sugar [] bloody noses [] painful urination [] thyroid problems CV [] frequent urination HEM / LYMPH [x] high blood pressure [] urine infections [] anemia [] chest pain or angina [] urinary incontinence [] lymph node enlargement [] heart rhythm problem MS [] bleeding problems [] dyspnea on exertion [] arthritis BREAST [] blood clots [] gout [] breast pain [] leg swelling SKIN [] nipple discharge RESP [] rashes [] breast mass [] shortness of breath [] skin cancer [] asthma [] cough [] sleep apnea Other Comments: PMH / PSH Past Medical History: Diagnosis Date Breast cancer (HCC) 01/31/2019 Right-Invasive mammary carcinoma, s/p L+SLNB+XRT Diabetes mellitus, type 2 (HCC) GERD (gastroesophageal reflux disease) Hormone replacement therapy (postmenopausal) Hyperlipidemia Hyperparathyroidism (HCC) Hypertension Motion sickness PONV (postoperative nausea and vomiting) Seasonal allergies Trigger finger of right thumb 04/06/2021 Past Surgical History: Procedure Laterality Date APPENDECTOMY BREAST LUMPECTOMY W/ SENTINEL NODE, NEEDLE LOC, POSS AX DIS Right 02/27/2019 Surgeon: Braden Gee MD SECTION, CLASSIC 1996 CHOLECYSTECTOMY ROBOTIC XI N/A 08/12/2022 Surgeon: Braden Gee MD COLONOSCOPY 05/19/2017 Normal....Dr. Blackmon D & C WITH LEEP 1994 EXPLORATORY LAPAROTOMY for infertility MM WIRE NEEDLE LOCALIZATION RIGHT Right 02/27/2019 RADIATION Right 04/2019 trigger finger surg Right 05/2021 at [facility] US BREAST BIOPSY RIGHT Right 01/31/2019 invasive mammary carcinoma US BREAST BIOPSY RIGHT Right 02/06/2019 OB History 6 Para 4 Term 1 3 AB 2 Living 3 SAB 2 IAB Ectopic Multiple 3 Live Births Obstetric Comments A set of triplets that at , then gave to triplets FAM HX Family History Problem Relation Age of Onset No Known Problems Mother COPD Father Pancreatic cancer Paternal Grandmother Heart attack Paternal Grandfather Pancreatic cancer Maternal Uncle Lung cancer Paternal Aunt Breast cancer Neg Hx SOC HX Social History Occupational History 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, 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[employer], 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 [employer] Tobacco Use Smoking status: Never Smokeless tobacco: Never Vaping Use Vaping status: Never Used Substance and Sexual Activity Alcohol use: Not Currently Comment: rarely Drug use: No Sexual activity: Yes Partners: Male control/protection: Post-menopausal MEDICATIONS Current Outpatient Medications Medication Instructions atorvastatin (LIPITOR) 40 mg, Oral, Daily cetirizine (ZYRTEC) 10 mg, Daily cholecalciferol (vitamin D3) (CHOLECALCIFEROL) 1,000 Units, Daily famotidine (PEPCID) 20 mg, Oral, 2 times daily lisinopriL (PRINIVIL,ZESTRIL) 10 mg, Oral, At bedtime metFORMIN (GLUCOPHAGE XR) 500 mg, Oral, 2 times daily with meals ALLERGIES Allergies[1] EXAM Vitals BP (!) 154/88 Pulse 68 Wt 93 kg (205 lb) BMI 35.19 kg/m Obesity Yes Const Alert, oriented, cooperative, pleasant, NAD HEENT AT/NC, Perr Neck no thyromegaly, no masses, no bruits Cor RRR, no murmurs Lungs clear to auscultation, no wheezes or rales Abd soft, NT, ND, no masses, no HSM, no peritoneal signs Hernia no abdominal wall hernias Musc / Back no (more content not included)...[facility]08-04-2025 History of Present illness Narrative* Robbie Santo MD - 07/01/2025 11:27 AM EDT PATIENT: Lyn Harry : 1960 AGE: 65 y.o. SEX: female RACE: [1] PCP: Elo Ogden MD REFERRAL: No ref. provider found Note template [employer] PLACE OF SERVICE [x] OFFICE REVIEWED Chart Yes HISTORIAN Source Patient Quality Good Accompanied by Her CC What did my tests show. HPI Patient was initially seen on 05/27/2025: Patient was diagnosed with hypercalcemia and hyperparathyroidism. HYPERPARATHYROIDISM ANALYSIS H/o Kidney stones / failure No Abdominal moans (ie. constipation, etc.) No Psychiatric overtones No Bone pain No PO Calcium or Vit D supplements Was taking Ca but then found to have hypercalcemia, now on Vit D. Thiazide diuretic or Nectar use No XRT to head / neck No Calcium and PTH levels 05/20/2025 iPTH 125 Ca 10.3 U/S or CT neck U/S neck: parathyroid adenoma R mid retrothyroid. Sestamibi / SPECT scan SPECT scan: parathyroid adenoma R mid retrothyroid 7 mm diameter Today she presents to discuss U/S neck and SPECT scan results. She has no new symptoms. ROS Questionnaire Reviewed: Today [x] Pertinent positives listed below [] No pertinent positives [] Unable to obtain CONST GI NEURO [] fevers [] nausea [] seizures [] chills [] vomiting [] syncope [] Fatigue [] constipation [] stroke [] recent weight loss [] diarrhea [] weakness EYES [] blood in stools PSYCH [] double vision [] abdominal pain [] depression [] cataracts [] appetite changes [] anxiety ENT/MOUTH ENDO [] difficulty swallowing [] blood in urine [] high or low blood sugar [] bloody noses [] painful urination [] thyroid problems CV [] frequent urination HEM / LYMPH [x] high blood pressure [] urine infections [] anemia [] chest pain or angina [] urinary incontinence [] lymph node enlargement [] heart rhythm problem MS [] bleeding problems [] dyspnea on exertion [] arthritis BREAST [] blood clots [] gout [] breast pain [] leg swelling SKIN [] nipple discharge RESP [] rashes [] breast mass [] shortness of breath [] skin cancer [] asthma [] cough [] sleep apnea Other Comments: PMH / PSH Past Medical History: Diagnosis Date Breast cancer (HCC) 01/31/2019 Right-Invasive mammary carcinoma, s/p L+SLNB+XRT Diabetes mellitus, type 2 (HCC) GERD (gastroesophageal reflux disease) Hormone replacement therapy (postmenopausal) Hyperlipidemia Hyperparathyroidism (HCC) Hypertension Motion sickness PONV (postoperative nausea and vomiting) Seasonal allergies Trigger finger of right thumb 04/06/2021 Past Surgical History: Procedure Laterality Date APPENDECTOMY BREAST LUMPECTOMY W/ SENTINEL NODE, NEEDLE LOC, POSS AX DIS Right 02/27/2019 Surgeon: Braden Gee MD SECTION, CLASSIC 1996 CHOLECYSTECTOMY ROBOTIC XI N/A 08/12/2022 Surgeon: Braden Gee MD COLONOSCOPY 05/19/2017 Normal....Dr. Blackmon D & C WITH LEERonan 1994 EXPLORATORY LAPAROTOMY for infertility MM WIRE NEEDLE LOCALIZATION RIGHT Right 02/27/2019 RADIATION Right 04/2019 trigger finger surg Right 05/2021 at [facility] BREAST BIOPSY RIGHT Right 01/31/2019 invasive mammary carcinoma US BREAST BIOPSY RIGHT Right 02/06/2019 OB History 6 Para 4 Term 1 3 AB 2 Living 3 SAB 2 IAB Ectopic Multiple 3 Live Births Obstetric Comments A set of triplets that at , then gave to triplets FAM HX Family History Problem Relation Age of Onset No Known Problems Mother COPD Father Pancreatic cancer Paternal Grandmother Heart attack Paternal Grandfather Pancreatic cancer Maternal Uncle Lung cancer Paternal Aunt Breast cancer Neg Hx SOC HX Social History Occupational History 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, 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[employer], 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 [employer] Tobacco Use Smoking status: Never Smokeless tobacco: Never Vaping Use Vaping status: Never Used Substance and Sexual Activity Alcohol use: Not Currently Comment: rarely Drug use: No Sexual activity: Yes Partners: Male control/protection: Post-menopausal MEDICATIONS Current Outpatient Medications Medication Instructions atorvastatin (LIPITOR) 40 mg, Oral, Daily cetirizine (ZYRTEC) 10 mg, Daily cholecalciferol (vitamin D3) (CHOLECALCIFEROL) 1,000 Units, Daily famotidine (PEPCID) 20 mg, Oral, 2 times daily lisinopriL (PRINIVIL,ZESTRIL) 10 mg, Oral, At bedtime metFORMIN (GLUCOPHAGE XR) 500 mg, Oral, 2 times daily with meals ALLERGIES Allergies[1] EXAM Vitals BP (!) 154/88 Pulse 68 Wt 93 kg (205 lb) BMI 35.19 kg/m Obesity Yes Const Alert, oriented, cooperative, pleasant, NAD HEENT AT/NC, Perr Neck no thyromegaly, no masses, no bruits Cor RRR, no murmurs Lungs clear to auscultation, no wheezes or rales Abd soft, NT, ND, no masses, no HSM, no peritoneal signs Hernia no abdominal wall hernias Musc / Back no CVA tenderness Ext no LE edema, no UE or LE deformities, normal pulses B LE's Neuro no gross deficits Psych normal affect Lymph no neck LA Skin / Other No obvious rashes LABS / RADIOLOGY Date: 05/20/2025 Wbc 4.84 Hgb 14 Hematocrit 41.2 Plt 190 Na 141 K 4.6 BUN 9 Cr 0.91 Glu 156 AST 26 ALT 37 Alk Phos 98 T. Bili 0.6 Lipase Lactate PTH Calcium [] Images / tracings reviewed personally for the following tests / X-rays: (my interpretation is documented below; Pertinent positives and negatives are listed and have been taken into consideration for the differential diagnosis, medical decision making, and subsequent plan) Other: as per HPI. 05/20/2025: TSH 1.34 ASSESSMENT / PLAN Hypercalcemia and hyperparathyroidism from suspected parathyroid adenoma R mid retrothyroid. Recommend parathyroid exploration and parathyroidectomy. Diff Dx As above. Patient Risks [x] Age [] SH [] Anticoagulation: [x] PMH: DM, GERD, HTN [] Previous procedure same surgical field / organ [] Other: Procedural Risks Bleeding, Infection, Risks of anesthesia, injury to nerves (RLN). Anticipated Anesthesia General Consent [x] Risks / Rationale / Benefits / Alternatives discussed [x] Informed consent obtained Questions Answered [x] Location [x] [facility] OR ORDERS / F/U Schedule OR MDM CODING DOCUMENTATION PROBLEMS ADDRESSED & THEIR COMPLEXITY Hyperparathyroidism Acute / Chronic that poses threat to life / bodily function (OP 5_IP 3_ER/C 5). RISK OF MANAGEMENT / TREATMENT Parathyroidectomy Shared MDM - Major Elective Sx (+) pt / proc risk factors (OP 5_IP 3_ER/C 5) (see above note for patient specific risks). [1] Allergies Allergen Reactions Penicillins Swelling Strong family history of penicillin allergy. documented in this [id number] NotePATIENT: Lyn Harry : 1960 AGE: 65 y.o. SEX: female RACE: [1] PCP: Elo Ogden MD REFERRAL: Elo Ogden* Note template CODING [facility], [facility] PL[facility] OF SERVICE [x] OFFICE REVIEWED Chart Yes HISTORIAN Source Patient Quality Good Accompanied by Her CC I have high calcium HPI Patient was diagnosed with hypercalcemia and hyperparathyroidism. HYPERPARATHYROIDISM ANALYSIS H/o Kidney stones / failure No Abdominal moans (ie. constipation, etc.) No Psychiatric overtones No Bone pain No PO Calcium or Vit D supplements Was taking Ca but then found to have hypercalcemia, now on Vit D. Thiazide diuretic or Nectar use No XRT to head / neck No Calcium and PTH levels 05/20/2025 iPTH 125 Ca 10.3 U/S or CT neck Sestamibi / SPECT scan ROS Questionnaire Reviewed: Today [x] Pertinent positives listed below [] No pertinent positives [] Unable to obtain CONST GI NEURO [] fevers [] nausea [] seizures [] chills [] vomiting [] syncope [x] Fatigue -? [] constipation [] stroke [] recent weight loss [] diarrhea [] weakness EYES [] blood in stools PSYCH [] double vision [] abdominal pain [] depression [] cataracts [] appetite changes [] anxiety ENT/MOUTH ENDO [] difficulty swallowing [] blood in urine [] high or low blood sugar [] bloody noses [] painful urination [x] thyroid problems - ? CV [] frequent urination HEM / LYMPH [x] high blood pressure [] urine infections [] anemia [] chest pain or angina [] urinary incontinence [] lymph node enlargement [] heart rhythm problem MS [] bleeding problems [] dyspnea on exertion [] arthritis BREAST [] blood clots [] gout [] breast pain [] leg swelling SKIN [] nipple discharge RESP [] rashes [] breast mass [] shortness of breath [] skin cancer [] asthma [] cough [] sleep apnea Other Comments: PMH / PSH Past Medical History: Diagnosis Date Breast cancer (HCC) 01/31/2019 Right-Invasive mammary carcinoma, s/p L+SLNB+XRT Diabetes mellitus, type 2 (HCC) GERD (gastroesophageal reflux disease) Hormone replacement therapy (postmenopausal) Hyperlipidemia Hyperparathyroidism (HCC) Hypertension Motion sickness PONV (postoperative nausea and vomiting) Seasonal allergies Trigger finger of right thumb 04/06/2021 Past Surgical History: Procedure Laterality Date APPENDECTOMY BREAST LUMPECTOMY W/ SENTINEL NODE, NEEDLE LOC, POSS AX DIS Right 02/27/2019 Surgeon: Braden Gee MD SECTION, CLASSIC 1996 CHOLECYSTECTOMY ROBOTIC XI N/A 08/12/2022 Surgeon: Braden Gee MD COLONOSCOPY 05/19/2017 Normal....Dr. Blackmon D & C WITH [place] 1994 EXPLORATORY LAPAROTOMY for infertility MM WIRE NEEDLE LOCALIZATION RIGHT Right 02/27/2019 RADIATION Right 04/2019 trigger finger surg Right 05/2021 at [facility] BREAST BIOPSY RIGHT Right 01/31/2019 invasive mammary carcinoma US BREAST BIOPSY RIGHT Right 02/06/2019 OB History 6 Para 4 Term 1 3 AB 2 Living 3 SAB 2 IAB Ectopic Multiple 3 Live Births Obstetric Comments A set of triplets that at , then gave to triplets FAM HX Family History Problem Relation Age of Onset No Known Problems Mother COPD Father Pancreatic cancer Paternal Grandmother Heart attack Paternal Grandfather Pancreatic cancer Maternal Uncle Lung cancer Paternal Aunt Breast cancer Neg Hx SOC HX Social History Occupational History 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, 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[employer], 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 [employer] Tobacco Use Smoking status: Never Smokeless tobacco: Never Vaping Use Vaping status: Never Used Substance and Sexual Activity Alcohol use: Not Currently Comment: rarely Drug use: No Sexual activity: Yes Partners: Male control/protection: Post-menopausal MEDICATIONS Current Outpatient Medications Medication Instructions atorvastatin (LIPITOR) 40 mg, Oral, Daily cetirizine (ZYRTEC) 10 mg, Daily famotidine (PEPCID) 20 mg, Oral, 2 times daily lisinopriL (PRINIVIL,ZESTRIL) 10 mg, Oral, At bedtime metFORMIN (GLUCOPHAGE XR) 500 mg, Oral, 2 times daily with meals ALLERGIES Allergies[1] EXAM Vitals BP (!) 144/87 Pulse 75 Resp 16 Ht 5' 4" Wt 93.4 kg (206 lb) SpO2 95% BMI 35.36 kg/m Obesity Yes Const Alert, oriented, cooperative, pleasant, NAD HEENT AT/NC, Perr Neck no thyromegaly, no masses, no bruits Cor RRR, no murmurs Lungs clear to auscultation, no wheezes or rales Abd soft, NT, ND, no masses, no HSM, no peritoneal signs Hernia no abdominal wall hernias Musc / Back no CVA tenderness Ext no LE edema, no UE or LE deformities, normal pulses B LE's Neuro no gross deficits Psych normal affect Lymph no neck LA Skin / Other No obvious rashes LABS / RADIOLOGY Date: 05/20/2025 Wbc 4.84 Hgb 14 Hematocrit 41.2 Plt 190 Na 141 K 4.6 BU (more content not included)...[facility]06-30-2025 History of Present illness Narrative* Robbie Santo MD - 05/27/2025 11:25 AM EDT PATIENT: Lyn Harry : 1960 AGE: 65 y.o. SEX: female RACE: [1] PCP: Elo Ogden MD REFERRAL: Elo Ogden* Note template CODING Forrst, Dreamise PLACE OF SERVICE [x] OFFICE REVIEWED Chart Yes HISTORIAN Source Patient Quality Good Accompanied by Her CC I have high calcium HPI Patient was diagnosed with hypercalcemia and hyperparathyroidism. HYPERPARATHYROIDISM ANALYSIS H/o Kidney stones / failure No Abdominal moans (ie. constipation, etc.) No Psychiatric overtones No Bone pain No PO Calcium or Vit D supplements Was taking Ca but then found to have hypercalcemia, now on Vit D. Thiazide diuretic or Nectar use No XRT to head / neck No Calcium and PTH levels 05/20/2025 iPTH 125 Ca 10.3 U/S or CT neck Sestamibi / SPECT scan ROS Questionnaire Reviewed: Today [x] Pertinent positives listed below [] No pertinent positives [] Unable to obtain CONST GI NEURO [] fevers [] nausea [] seizures [] chills [] vomiting [] syncope [x] Fatigue -? [] constipation [] stroke [] recent weight loss [] diarrhea [] weakness EYES [] blood in stools PSYCH [] double vision [] abdominal pain [] depression [] cataracts [] appetite changes [] anxiety ENT/MOUTH ENDO [] difficulty swallowing [] blood in urine [] high or low blood sugar [] bloody noses [] painful urination [x] thyroid problems - ? CV [] frequent urination HEM / LYMPH [x] high blood pressure [] urine infections [] anemia [] chest pain or angina [] urinary incontinence [] lymph node enlargement [] heart rhythm problem MS [] bleeding problems [] dyspnea on exertion [] arthritis BREAST [] blood clots [] gout [] breast pain [] leg swelling SKIN [] nipple discharge RESP [] rashes [] breast mass [] shortness of breath [] skin cancer [] asthma [] cough [] sleep apnea Other Comments: PMH / PSH Past Medical History: Diagnosis Date Breast cancer (HCC) 01/31/2019 Right-Invasive mammary carcinoma, s/p L+SLNB+XRT Diabetes mellitus, type 2 (HCC) GERD (gastroesophageal reflux disease) Hormone replacement therapy (postmenopausal) Hyperlipidemia Hyperparathyroidism (HCC) Hypertension Motion sickness PONV (postoperative nausea and vomiting) Seasonal allergies Trigger finger of right thumb 04/06/2021 Past Surgical History: Procedure Laterality Date APPENDECTOMY BREAST LUMPECTOMY W/ SENTINEL NODE, NEEDLE LOC, POSS AX DIS Right 02/27/2019 Surgeon: Braden Gee MD SECTION, CLASSIC 1996 CHOLECYSTECTOMY ROBOTIC XI N/A 08/12/2022 Surgeon: Braden Gee MD COLONOSCOPY 05/19/2017 Normal....Dr. Blackmon D & C WITH [place] 1994 EXPLORATORY LAPAROTOMY for infertility MM WIRE NEEDLE LOCALIZATION RIGHT Right 02/27/2019 RADIATION Right 04/2019 trigger finger surg Right 05/2021 at [facility] US BREAST BIOPSY RIGHT Right 01/31/2019 invasive mammary carcinoma US BREAST BIOPSY RIGHT Right 02/06/2019 OB History 6 Para 4 Term 1 3 AB 2 Living 3 SAB 2 IAB Ectopic Multiple 3 Live Births Obstetric Comments A set of triplets that at , then gave to triplets FAM HX Family History Problem Relation Age of Onset No Known Problems Mother COPD Father Pancreatic cancer Paternal Grandmother Heart attack Paternal Grandfather Pancreatic cancer Maternal Uncle Lung cancer Paternal Aunt Breast cancer Neg Hx SOC HX Social History Occupational History 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, 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[employer], 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 [employer] Tobacco Use Smoking status: Never Smokeless tobacco: Never Vaping Use Vaping status: Never Used Substance and Sexual Activity Alcohol use: Not Currently Comment: rarely Drug use: No Sexual activity: Yes Partners: Male control/protection: Post-menopausal MEDICATIONS Current Outpatient Medications Medication Instructions atorvastatin (LIPITOR) 40 mg, Oral, Daily cetirizine (ZYRTEC) 10 mg, Daily famotidine (PEPCID) 20 mg, Oral, 2 times daily lisinopriL (PRINIVIL,ZESTRIL) 10 mg, Oral, At bedtime metFORMIN (GLUCOPHAGE XR) 500 mg, Oral, 2 times daily with meals ALLERGIES Allergies[1] EXAM Vitals BP (!) 144/87 Pulse 75 Resp 16 Ht 5' 4" Wt 93.4 kg (206 lb) SpO2 95% BMI 35.36 kg/m Obesity Yes Const Alert, oriented, cooperative, pleasant, NAD HEENT AT/NC, Perr Neck no thyromegaly, no masses, no bruits Cor RRR, no murmurs Lungs clear to auscultation, no wheezes or rales Abd soft, NT, ND, no masses, no HSM, no peritoneal signs Hernia no abdominal wall hernias Musc / Back no CVA tenderness Ext no LE edema, no UE or LE deformities, normal pulses B LE's Neuro no gross deficits Psych normal affect Lymph no neck LA Skin / Other No obvious rashes LABS / RADIOLOGY Date: 05/20/2025 Wbc 4.84 Hgb 14 Hematocrit 41.2 Plt 190 Na 141 K 4.6 BUN 9 Cr 0.91 Glu 156 AST 26 ALT 37 Alk Phos 98 T. Bili 0.6 Lipase Lactate PTH Calcium [] Images / tracings reviewed personally for the following tests / X-rays: (my interpretation is documented below; Pertinent positives and negatives are listed and have been taken into consideration for the differential diagnosis, medical decision making, and subsequent plan) Other: as per HPI. 05/20/2025: TSH 1.34 ASSESSMENT / PLAN Hypercalcemia and hyperparathyroidism. Recommend U/S neck and PTH scan, then decide on CT neck or surgical exploration. Diff Dx As above. Patient Risks [x] Age [] SH [] Anticoagulation: [x] PMH: DM, GERD, HTN [] Previous procedure same surgical field / organ [] Other: Procedural Risks Anticipated Anesthesia Consent [] Risks / Rationale / Benefits / Alternatives discussed [] Informed consent obtained Questions Answered [x] Location [] [facility] OR ORDERS / F/U F/u after imaging. PROBLEMS ADDRESSED & THEIR COMPLEXITY Acute / Chronic that poses threat to life / bodily function (OP 5_IP 3_ER/C 5). *For select categories, select higher level if >=2 problems addressed Documentation: Hyperparathyroidism and hypercalcemia DATA REVIEWED & ANALYZED *3 Points from Notes reviewed from each unique source, Each unique test ordered, Each unique test reviewed, Assessment req an independent historian (OP 4,5_IP 2,3_ER/C 4,5). *For select categories, select higher level if 2 of 3 categories satisfied Documentation: Reviewed labs above [1] Allergies Allergen Reactions Penicillins Swelling Strong family history of penicillin allergy. documented in this [id number] History of Present illness Narrative* Elo Ogden MD - 05/21/2025 11:20 AM EDT Telephone Visit Via Phone Call [facility] [address] [facility] [phone] Telephone Visit [facility] 05/21/2025 Elo Ogden MD Provider Location: [address] [place] [address] Patient Location Turn Down Attendant: None Patient Location: Patient's Home Patient: Lyn Harry Date of : 1960 (65 y.o. female) PCP: Elo Ogden MD I discussed risks, benefits and alternatives of a telephone visit telemedicine consultation with the patient (and any accompanying persons) including the risks that the patient's personal health details and medical records will be discussed over real-time, synchronous, interactive audio technology,the visit will not be recorded without the express consent of both the provider and the patient, and that there are inherent diagnostic limitations compared to [id number] evaluations. We elected toproceed with the telephone visit telemedicine consultation. HPI Lyn Harry is a 65 y.o. female presenting today to discuss lab results. Patient was following up with hematology with lab tests showing persistent high calcium, low vit D and high PTH The following portions of the patient's history were reviewed and updated as appropriate: allergies, current medications, past family history, past medical history, past social history, past surgicalhistory, and problem list. Review of Systems Patient's Medications New Prescriptions No medications on file Previous Medications ATORVASTATIN (LIPITOR) 40 MG TABLET Take 1 (one) tablet (40 mg total) by mouth daily . CETIRIZINE (ZYRTEC) 10 MG TABLET Take 1 (one) tablet (10 mg total) by mouth daily . FAMOTIDINE (PEPCID) 20 MG TABLET Take 1 (one) tablet (20 mg total) by mouth 2 (two) times a day . LISINOPRIL (PRINIVIL,ZESTRIL) 10 MG TABLET Take 1 (one) tablet (10 mg total) by mouth at bedtime . METFORMIN (GLUCOPHAGE XR) 500 MG 24 HR TABLET Take 1 (one) tablet (500 mg total) by mouth 2 (two) times a day with breakfast and lunch . Modified Medications No medications on file Discontinued Medications No medications on file Assessment/Plan: Problem List Items Addressed This Visit None Visit Diagnoses Hypothyroidism, unspecified type - Primary Relevant Orders Ambulatory referral to General Surgery Concern for hyperparathyroidism was explained at length to patient and its effects usp on bonehealth Consultation with surgery is warranted and patient was agreeable Referral placed. My ongoing relationship with Lyn Harry requires continued responsibility and cognitive effort of being the focal point for all services related to chronic condition(s). I have spent 15 minutes with the patient reviewing the HPI and Plan of Care. 05/20/2025 3:00 PM PHQ-9 Review Feeling down, depressed, or hopeless 0 PHQ-2 Total Score 0 documented in this [id number] NoteTelephone Visit Via Phone Call [facility] [address] [facility] [address] [facility] [phone] Telephone Visit [facility] 05/21/2025 Elo Ogden MD Provider Location: [address] [place] [address] Patient Location Turn Down Attendant: None Patient Location: Patient's Home Patient: Lyn Harry Date of : 1960 (65 y.o. female) PCP: Elo Ogden MD I discussed risks, benefits and alternatives of a telephone visit telemedicine consultation with the patient (and any accompanying persons) including the risks that the patient's personal health details and medical records will be discussed over real-time, synchronous, interactive audio technology, the visit will not be recorded without the express consent of both the provider and the patient, and that there are inherent diagnostic limitations compared to [id number] evaluations. We elected to proceed with the telephone visit telemedicine consultation. RICCO Harry is a 65 y.o. female presenting today to discuss lab results. Patient was following up with hematology with lab tests showing persistent high calcium, low vit D and high PTH The following portions of the patient's history were reviewed and updated as appropriate: allergies, current medications, past family history, past medical history, past social history, past surgical history, and problem list. Review of Systems Patient's Medications New Prescriptions No medications on file Previous Medications ATORVASTATIN (LIPITOR) 40 MG TABLET Take 1 (one) tablet (40 mg total) by mouth daily . CETIRIZINE (ZYRTEC) 10 MG TABLET Take 1 (one) tablet (10 mg total) by mouth daily . FAMOTIDINE (PEPCID) 20 MG TABLET Take 1 (one) tablet (20 mg total) by mouth 2 (two) times a day . LISINOPRIL (PRINIVIL,ZESTRIL) 10 MG TABLET Take 1 (one) tablet (10 mg total) by mouth at bedtime . METFORMIN (GLUCOPHAGE XR) 500 MG 24 HR TABLET Take 1 (one) tablet (500 mg total) by mouth 2 (two) times a day with breakfast and lunch . Modified Medications No medications on file Discontinued Medications No medications on file Assessment/Plan: Problem List Items Addressed This Visit None Visit Diagnoses Hypothyroidism, unspecified type - Primary Relevant Orders Ambulatory referral to General Surgery Concern for hyperparathyroidism was explained at length to patient and its effects usp on bone health Consultation with surgery is warranted and patient was agreeable Referral placed. My ongoing relationship with Lyn Harry requires continued responsibility and cognitive effort of being the focal point for all services related to chronic condition(s). I have spent 15 minutes with the patient reviewing the HPI and Plan of Care. 05/20/2025 3:00 PM PHQ-9 Review Feeling down, depressed, or hopeless 0 PHQ-2 Total Score 0 AUTHENTICATED BY ELO OGDEN, ON 05/22/2025 11:49:27[facility]06-23-2025 Instructions* Patient Instructions* Shannan Calzada CNP - 05/20/2025 10:46 AM EDT Please stop at the laboratory on the 2nd floor of this building (located to the left as you step off the elevator). Tell the lab staff you have labs ordered in the system from Shannan Calzada CNP. I will call you with results If labs are normal, will send Dr. Ogden a note regarding need for sleep study given your snoring and sleep not restful. I have ordered your bone density for August 2025 I will order your mammogram for February 26, 2026 Referral to Cancer Wellness Program Referral to Genetics due to family history of pancreatic cancer Reviewed importance of monthly self-breast awareness exam. Reviewed signs and symptoms that should be reported to her breast health provider, including: a new lump in the breast a new area of the breast that seems unnaturally firm redness or swelling of the skin in or around the breast area flattening or other changes to the nipple bumps on or under the skin of the chest wall new pulling of skin or swelling at the lumpectomy site a new thickening on or near the mastectomy scar bone pain, chest pain, shortness of breath, abdominal pain, or persistent headaches. documented in this [id number] History of Present illness Narrative* Shannan Calzada CNP - 05/20/2025 10:00 AM EDT Breast Cancer Survivorship Clinic Visit Patient Name: Lyn Harry 65 y.o. Reason for visit: Breast cancer survivorship visit, symptom management, and surveillance Diagnosis: Right breast invasive ductal carcinoma, ER/AL +, HER2/marily negative AJCC stage: pT1c pN0 Mx, Stage IA Date of diagnosis: 01/31/19 Primary Care Provider: Elo Ogden MD Surgeon: Braden Gee MD Medical Oncologist: Rin Garrett MD Radiation Oncologist: Leno Pelletier Treatment History: Right breast lumpectomy with SLND 02/27/2019 Adjuvant radiation from 05/07/2019 to 06/05/2019. Completed 5 years of hormone therapy in May 2024 Interval History: Ms. Harry is her for her initial survivorship visit. She does complain of some fatigue and difficulty sleeping. She retried in March of 2024. She denies any new breast lumps or axillary lymphadenopathy.She denies any hospitalizations or new medications. Survivorship Assessment and Recommendations Assessment: Lyn is a 65 y.o. female who presented for evaluation in the Survivorship Clinic for diagnosisof breast Cancer Recommendations: Right breast invasive ductal carcinoma, ER/AL positive, HER-2/marily negative, pT1c pN0 Mx, Stage IA: The patient presented for her diagnosis of right breast invasive ductal carcinoma, ER AL positive, HER-2/marily negative. This was found on a routine screening mammogram and she did not have any symptoms prior to this. She had a right breast lumpectomy on 02/27/[address] Gee. The final pathology is as above overall stage I a, hormone positive, HER-2/marily negative. -I sent an Oncotype DX test on her tumor specimen and this returned with a score of 17 which is low. Based on this her absolute benefit of adjuvant chemotherapy would be less than 1%. Also, her risk of recurrence at 9 years with either an AI or tamoxifen is 5%. -Given her low Oncotype DX score, I would not recommend adjuvant chemotherapy in addition to adjuvant endocrine therapy. -She received adjuvant radiation from 05/07/2019 to 06/05/2019. -She was then started on Arimidex 1 mg daily in May 2019. She was initially tolerating this well but in fall 2019 she had increased stiffness in the fingers and pain in her collarbone. -She stopped Arimidex at that time and switched to exemestane. She is tolerating this better with no arthralgias. She denies any significant hot flashes. -She should continue endocrine therapy for at least 5 years, through 05/2024. -Her last bone density scan was from 08/18/2021 and noted normal bone density however she had significant bone density loss compared to her prior scan. She was previously on calcium and vitamin D however this resulted in hypercalcemia and she was instructed to stop. -She elected to proceed with Prolia and started this on 09/09/2021 and tolerated it well. Repeat bone density scan in August 2023., which was normal/improved . The patient canceled her Prolia in February, due to financial constraints with out of pocket of $3000. She will complete her aromatase inhibitor therapy in May. We will re-evaluate following her next Dexa Scan in 2024. - She completed 5 years of hormone therapy in May 2024. -Her last mammogram was on 02/25/25 and was normal, she is due for follow-up in 1 year. Ordered today - She completed 5 years of hormone therapy in May 2024. - We will see the patient in one year for survivorship visit. Diabetes: Per patient history. She will continue to follow with her PCP for this. Last HbA1c was 6.9. She is on metformin for this. Hypertension: Per patient history. She will continue follow-up with her PCP for this. Her blood pressure today is BP: (!) 148/88 She did take her medications. Fatigue: patient does note increased fatigue. She is not sleeping well, and her states she does snore. -05/20/25 PHQ-9 with score of 3 indicating minimal depression. Results scanned under media tab in epic - Will check CBC, CMP, TSH, vitamin D level, B-12/folate .Will call patient with results, and if work up negative, will defer sleep study to her PCP. - Referral to Cancer wellness program Family history of pancreatic cancer: Based on her family history of pancreatic cancer genetic counseling/testing is recommended for her. A referral was placed today for genetic counseling. Surveillance Surveillance History of Present Illness: Lyn is a 65 y.o. female who presents for initial evaluation in the Survivorship Clinic for diagnosis of breast cancer and has a past medical history of Breast cancer (HCC) (01/31/2019), Diabetes mellitus, type 2 (HCC), GERD (gastroesophageal reflux disease), Hormone replacement therapy (postme nopausal), Hyperlipidemia, Hypertension, Motion sickness, PONV (postoperative nausea and vomiting),Seasonal allergies, and Trigger finger of right thumb (04/06/2021). Ms. Harry was a 58 year old lady with a history of diabetes, GERD, HLD, PCOS, and seasonal allergieswho was being seen by oncology in February 2019 for a new diagnosis of stage IA right breast invasive ductal carcinoma, ER/AL +, HER2/marily negative. The patient states that she was not having any issues prior to the diagnosis. This was found on a routine screening mammogram. She says she had a mammogram last year that was normal. She had a mammogram at the end of December which noted a right breast lesion that was concerning for malignancy. Given this they proceeded with a biopsy which confirmed right breast invasive ductal carcinoma, ER AL positive, HER-2/marily negative. She was then referred to see Dr. Gee. They discussed surgical options and the patient elected to proceed with a right breast lumpectomy and sentinel lymph node dissection. She tolerated surgery well and is healing well fromher surgery. This was performed in early February. Her final pathology shows a tumor measuring up to 1.9 cm. The sentinel lymph node were negative for malignancy. It was overall grade 1. Her final pathology shows a pT1c pN0 Mx stage I a invasive ductal carcinoma of the right breast, ER/AL positive, HER-2/marily negative. She is healing well from the surgery and she is here today to discuss next steps in her therapy. She denies any family history of breast cancer. No family history of ovarian cancer or endometrial cancer. Reproductive risk factors: Age of menarche at 17 years Age of menopause at 56 years. 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 control pills: yes. Hormone replacement therapy: yes. Caffeine intake yes History of prior breast biopsy no History of prior breast cancer no Family History : Breast cancer no Ovarian Cancer no Endometrial cancer no Family History of breast disease no Past Medical History: Diagnosis Date Breast cancer (HCC) 01/31/2019 Right-Invasive mammary carcinoma Diabetes mellitus, type 2 (HCC) GERD (gastroesophageal reflux disease) Hormone replacement therapy (postmenopausal) Hyperlipidemia Hypertension Motion sickness PONV (postoperative nausea and vomiting) Seasonal allergies Trigger finger of right thumb 04/06/2021 Past Surgical History: Procedure Laterality Date APPENDECTOMY BREAST BIOPSY Right 2019 BREAST LUMPECTOMY Right 02/27/2019 BREAST LUMPECTOMY W/ SENTINEL NODE, NEEDLE LOC, POSS AX DIS Right 02/27/2019 Procedure: RIGHT BREAST LUMPECTOMY WITH SENTINEL NODE BIOPSY WITH NEEDLE LOCALIZATION AND POSSIBLE AXILLARY DISSECTION; Surgeon: Braden Gee MD; Location: Main OR; Service: General Surgery SECTION, CLASSIC 1996 CHOLECYSTECTOMY ROBOTIC XI N/A 08/12/2022 Procedure: CHOLECYSTECTOMY ROBOTIC XI; Surgeon: Braden Gee MD; Location: Main OR; Service: Gen-Robotics COLONOSCOPY 05/19/2017 Normal....Dr. Blackmon D & C WITH [place] 1994 EXPLORATORY LAPAROTOMY for infertility MM WIRE NEEDLE LOCALIZATION RIGHT Right 02/27/2019 MM NEEDLE LOCALIZATION RIGHT 02/27/2019 MAMMOGRAPHY RADIATION Right 04/2019 trigger finger surg Right 05/2021 at [facility] BREAST BIOPSY RIGHT Right 01/31/2019 US BREAST BIOPSY RIGHT 01/31/2019, invasive mammary carcinoma US BREAST BIOPSY RIGHT Right 02/06/2019 US BREAST BIOPSY RIGHT Family History Problem Relation Age of Onset No Known Problems Mother COPD Father Lung cancer Paternal Aunt Pancreatic cancer Paternal Grandmother Heart attack Paternal Grandfather Pancreatic cancer Maternal Uncle Breast cancer Neg Hx Current Medications[1] Allergies: Penicillins Review of Systems General- Denies weakness, fever/chills, weight gain/loss, fatigue, change in appetite, or cold and flu symptoms, sleep disturbance HEENT: Denies hearing changes or tinnitus, vision changes, sinus pain/tenderness, nasal congestion,epistaxis, gingival bleed, sore throat, or mouth sores Cardiac; Denies CP, palpitations, dizziness, claudication, or QUINN Pulmonary- Denies SOB, wheezing, PND, or cough GI- Denies nausea and vomiting, dysphagia, heartburn, abdominal pain, diarrhea or constipation - Denies urgency, frequency, hematuria or incontinence, complains of burning when urinating Endo- Denies excessive sweating, polyuria, or polydypsia MS - Denies joint stiffness swelling, or decreased ROM, Neuro- Denies loss of consciousness, numbness or tingling Skin- Denies jaundice, rashes, or open lesions Heme- Denies night sweats, signs and symptoms of infection, easily bleeding or bruising Psych- Denies signs and symptoms of depression or suicidal thoughts Physical Exam PACU Vitals 05/20/25 1000 BP: (!) 148/88 Pulse: 76 Temp: 98.1 F (36.7 C) SpO2: 95% PainSc: 0-No pain General Appearance: Alert, well developed, and in no acute distress. HEENT: Head - Normocephalic, atraumatic. No temporal wasting . Eyes - JULIA bilaterally and EOMI, anicteric sclerae. Ears - normal external appearance, hearing intact. Nose - normal, no erythema. Throat - mucous membranes moist, pharynx without lesions. Neck: Supple, trachea midline. Cardiovascular: S1, S2 normal. No murmurs, rubs, clicks or gallops appreciated. No pedal edema. Respiratory: Lungs clear to auscultation, no wheezes, rales or rhonchi heard. Lymphatics: No palpable peripheral lymphadenopathy Abdomen: Soft, non-tender, normal bowel sounds, non-distended, no hepatosplenomegaly Neurological: Grossly normal motor and sensory exam. No focal deficits. Musculoskeletal: No joint tenderness, deformity. Skin: Normal coloration and turgor. No rashes. Psych: Alert, oriented x 3. Normal mood and affect. Breast: Right breast with 3 cm horizontal incision that is located about 2 cm above the nipple, well-healed. No masses palpated in right breast. No axillary adenopathy appreciated. Right axilla with what appears to be adipose tissue noted. Left breast with no masses palpated or skin changes or nipple discharge. No axillary adenopathy. Labs: reviewed in EMR Radiology: Screening mammogram 01/31/24 Postsurgical/post treatment findings are noted in the right breast. Additional benign-appearing calcification noted. No developing mass, suspicious microcalcifications or unexpected architectural distortion. IMPRESSION:Benign findings. BIRADS - CATEGORY 2 Benign, no evidence of malignancy. Normal interval follow-up is recommended in 12 months. OVERALL ASSESSMENT - BENIGN DEXA Scan 09/01/2023 Normal bone density Screening mammogram 01/27/2023 Heterogeneously dense fibroglandular tissue is present. There are no suspicious dominant masses or suspicious-appearing clusters of calcification. A linear scar marker is placed on the superior rightbreast. Surgical and/or radiation therapy changes persist here without suspicious change. IMPRESSION: Unchanged mammogram with no radiographic evidence of malignancy. BI-RADS:BIRADS - CATEGORY 2 Benign, no evidence of malignancy. Normal interval follow-up is recommended in 12 months. OVERALL ASSESSMENT - BENIGN DEXA Scan 08/18/2021 Normal bone density. Interval bone loss compared to 2019. Screening mammogram 01/22/2021: Expected post-treatment changes in the right breast. No mammographic evidence for malignancy in either breast. BIRADS: Category 2 - Benign, no evidence of malignancy. Normal interval follow-up is recommended in 12 months. OVERALL ASSESSMENT - BENIGN Mammogram 01/22/20: No mammographic or sonographic evidence of malignancy. BIRADS - CATEGORY 2 Benign, no evidence of malignancy. Normal interval follow-up is recommended in 12 months. DEXA 08/17/19: Normal Mammogram 01/24/19: 1. Suspicious mass within the right breast at 12:00 5 cm from the nipple. 2. Benign complicated appearing cyst within the left breast at 10:00 4 cm from the nipple. OVERALL BIRADS: 4C-HIGH SUSPICION FOR MALIGNANCY-BIOPSY IS RECOMMENDED. RECOMMENDATION: 1: Ultrasound-guided biopsy of the right breast is recommended. Pathology: Right breast Lumpectomy 02/27/19: Histologic type: Invasive ductal carcinoma, not otherwise specified Histologic ([place]) grade: Glandular/Tubular differentiation: Score 3 Nuclear pleomorphism: Score 1 Mitotic rate: Score 1 Overall grade: Grade 1 (scores of 3, 4, or 5) Margins: Invasive carcinoma margins: Uninvolved by invasive carcinoma Distance from closest margin: Inferior margin, 2 mm DCIS margins: Uninvolved by DCIS Distance from closest margin: Inferior margin, 6 mm Pathologic Stage (AJCC 8th Ed.): pT1c pN0(sn) Procedure: Partial mastectomy Specimen laterality: Right Tumor site: 12 o'clock Tumor size: 1.9 cm Tumor focality: Single focus of invasive carcinoma Ductal carcinoma in-situ (DCIS): Present Tumor extension: Skin: Skin is not present Nipple: Nipple is not present Skeletal muscle: No skeletal muscle is present Regional lymph nodes: Uninvolved by tumor cells Number of lymph nodes examined: 4 Number of sentinel lymph nodes examined: 4 Treatment effect: No known presurgical therapy Lymphovascular invasion: Not identified Dermal lymphovascular invasion: No skin present Additional pathologic findings: None Ancillary studies: (performed on prior biopsy [id number]) ER: Positive ( 100%, 3+ intensity, resulted by image analysis) AL: Positive ( 100%, 3+ intensity, resulted by image analysis) HER2: Negative (0, resulted by image analysis) A. Lymph node(s), Axillary, [place], Right, lymphadenectomy: One lymph node, negative for malignancy (0/1). B. Lymph node(s), Axillary, [place], Right, lymphadenectomy: One lymph node, negative for malignancy (0/1). C. Breast, Right, lumpectomy: 1. Invasive ductal carcinoma. See synoptic report. 2. The margins of excision are uninvolved by tumor. D. Lymph node(s), Axillary, [place], Right, lymphadenectomy: Two lymph nodes, negative for malignancy (0/2). Monitoring for Early and Late Effects of Treatment Monitoring for late effects Assess for Cardiac Risk - Left sided radiation no - History of cardiovascular disease no -Hypertension yes -Hyperlipidemia yes -Diabetes yes -Tobacco use no The 10-year ASCVD risk score (Wilmer DK, et al., 2019) is: 14.4% Assess for cognitive dysfunction - Patient denies problems with memory other than age related memory loss. Fatigue assessment: Discussed women recovering from breast cancer experience other things that can add together to increase fatigue, such as surgery, stress and worry, changes in activity level, and changes in blood counts, electrolytes, and hormone levels. Normalized her experience. Education provided that fatigue is due to cancer and its treatment can last for weeks, months, and often continuesafter treatment ends. Advise physical activity, healthy diet and support and coping with multiple life changes related to breast cancer diagnosis and treatment. Bone Health:Her last bone density scan was from 08/18/2021 and noted normal bone density however shehad significant bone density loss compared to her prior scan. She was previously on calcium and vitamin D however this resulted in hypercalcemia and she was instructed to stop. -She elected to proceed with Prolia and started this on 09/09/2021 and tolerated it well. Repeat bone density scan in August 2023., which was normal/improved . The patient canceled her Prolia in February, due to financial constraints with out of pocket of $3000. She will complete her aromatase inhibitor therapy in May. We will re-evaluate following her next Dexa Scan in 2024. Risk Reduction Risk Reduction and Counseling Lifestyle Risk assessment Weight:Weight: 93.5 kg (206 lb 3.2 oz) Height:.Height: 5' 5" (165.1 cm) BMI Body mass index is 34.31 kg/m . Nutrition: Patient declined to meet with direct support staff member Endocrine therapy:She was then started on Arimidex 1 mg daily in May 2019. She was initially tolerating this well but in fall 2019 she had increased stiffness in the fingers and pain in her collarbone. -She stopped Arimidex at that time and switched to exemestane -She completed endocrine therapy 05/2024 Genetics: Lyn has not previously completed genetic counseling/testing. Based on her family history of pancreatic cancer genetic counseling/testing is recommended for her. A referral was placed today for genetic counseling. Exercise: Encouraged patient to continue to engage in dedicated and routine exercise. Evidence supports that exercising 150 minutes/week can decrease the risk of recurrent breast disease and reduce the risk of dying prematurely from other diseases. Referral to Cancer wellness program. Tobacco/Alcohol: Never smoker, rare alcohol use. 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 Reviewed importance of monthly self-breast awareness exam. Reviewed signs and symptoms that should be reported to her breast health provider, including: a new lump in the breast a new area of the breast that seems unnaturally firm redness or swelling of the skin in or around the breast area flattening or other changes to the nipple bumps on or under the skin of the chest wall new pulling of skin or swelling at the lumpectomy site a new thickening on or near the mastectomy scar bone pain, chest pain, shortness of breath, abdominal pain, or persistent headaches. 2. No evidence of recurrence or metastatic disease on exam today. Psychosocial Functioning Distress Screening; She noted distress scale screening of 3 out of 10, indicating may be fatigue. Anxiety/Fear of recurrence: Patient declined to meet with social services analyst. A total of 55 minutes were spent [id number] with the patient during this encounter with greater than 50% spent on counseling and coordination of care.This includes chart review, patient assessment and review of HPI, collaboration with ancillary team members (social work and direct support staff member if applicable). We discussed in depth her diagnosis, surveillance for risk of cancer recurrence or new cancer aswell as recommended screenings and healthy lifestyle for risk reduction and wellness. Shannan Calzada, [facility] [1] Current Outpatient Medications: atorvastatin (LIPITOR) 40 MG tablet, Take 1 (one) tablet (40 mg total) by mouth daily ., Disp: 100 tablet, Rfl: 3 cetirizine (ZYRTEC) 10 MG tablet, Take 1 (one) tablet (10 mg total) by mouth daily ., Disp: , Rfl: famotidine (PEPCID) 20 MG tablet, Take 1 (one) tablet (20 mg total) by mouth 2 (two) times a day .,Disp: 180 tablet, Rfl: 3 lisinopriL (PRINIVIL,ZESTRIL) 10 MG tablet, Take 1 (one) tablet (10 mg total) by mouth at bedtime ., Disp: 100 tablet, Rfl: 3 metFORMIN (Glucophage XR) 500 MG 24 hr tablet, Take 1 (one) tablet (500 mg total) by mouth 2 (two) times a day with breakfast and lunch ., Disp: 180 tablet, Rfl: 3 documented in this [id number] NoteBreast Cancer Survivorship Clinic Visit Patient Name: Lyn Harry 65 y.o. Reason for visit: Breast cancer survivorship visit, symptom management, and surveillance Diagnosis: Right breast invasive ductal carcinoma, ER/AL +, HER2/marily negative AJCC stage: pT1c pN0 Mx, Stage IA Date of diagnosis: 01/31/19 Primary Care Provider: Elo Ogden MD Surgeon: Braden Gee MD Medical Oncologist: Rin Garrett MD Radiation Oncologist: Leno Pelletier Treatment History: Right breast lumpectomy with SLND 02/27/2019 Adjuvant radiation from 05/07/2019 to 06/05/2019. Completed 5 years of hormone therapy in May 2024 Interval History: Ms. Harry is her for her initial survivorship visit. She does complain of some fatigue and difficulty sleeping. She retried in March of 2024. She denies any new breast lumps or axillary lymphadenopathy. She denies any hospitalizations or new medications. Survivorship Assessment and Recommendations Assessment: Lyn is a 65 y.o. female who presented for evaluation in the Survivorship Clinic for diagnosis of breast Cancer Recommendations: Right breast invasive ductal carcinoma, ER/AL positive, HER-2/marily negative, pT1c pN0 Mx, Stage IA: The patient presented for her diagnosis of right breast invasive ductal carcinoma, ER AL positive, HER-2/marily negative. This was found on a routine screening mammogram and she did not have any symptoms prior to this. She had a right breast lumpectomy on 02/27/[address] Gee. The final pathology is as above overall stage I a, hormone positive, HER-2/marily negative. -I sent an Oncotype DX test on her tumor specimen and this returned with a score of 17 which is low. Based on this her absolute benefit of adjuvant chemotherapy would be less than 1%. Also, her risk of recurrence at 9 years with either an AI or tamoxifen is 5%. -Given her low Oncotype DX score, I would not recommend adjuvant chemotherapy in addition to adjuvant endocrine therapy. -She received adjuvant radiation from 05/07/2019 to 06/05/2019. -She was then started on Arimidex 1 mg daily in May 2019. She was initially tolerating this well but in fall 2019 she had increased stiffness in the fingers and pain in her collarbone. -She stopped Arimidex at that time and switched to exemestane. She is tolerating this better with no arthralgias. She denies any significant hot flashes. -She should continue endocrine therapy for at least 5 years, through 05/2024. -Her last bone density scan was from 08/18/2021 and noted normal bone density however she had significant bone density loss compared to her prior scan. She was previously on calcium and vitamin D however this resulted in hypercalcemia and she was instructed to stop. -She elected to proceed with Prolia and started this on 09/09/2021 and tolerated it well. Repeat bone density scan in August 2023., which was normal/improved . The patient canceled her Prolia in February, due to financial constraints with out of pocket of $3000. She will complete her aromatase inhibitor therapy in May. We will re-evaluate following her next Dexa Scan in 2024. - She completed 5 years of hormone therapy in May 2024. -Her last mammogram was on 02/25/25 and was normal, she is due for follow-up in 1 year. Ordered today - She completed 5 years of hormone therapy in May 2024. - We will see the patient in one year for survivorship visit. Diabetes: Per patient history. She will continue to follow with her PCP for this. Last HbA1c was 6.9. She is on metformin for this. Hypertension: Per patient history. She will continue follow-up with her PCP for this. Her blood pressure today is BP: (!) 148/88 She did take her medications. Fatigue: patient does note increased fatigue. She is not sleeping well, and her states she does snore. -05/20/25 PHQ-9 with score of 3 indicating minimal depression. Results scanned under media tab in [facility] - Will check CBC, CMP, TSH, vitamin D level, B-12/folate .Will call patient with results, and if work up negative, will defer sleep study to her PCP. - Referral to Cancer wellness program Family history of pancreatic cancer: Based on her family history of pancreatic cancer genetic counseling/testing is recommended for her. A referral was placed today for genetic counseling. Surveillance Surveillance History of Present Illness: Lyn is a 65 y.o. female who presents for initial evaluation in the Survivorship Clinic for diagnosis of breast cancer and has a past medical history of Breast cancer (HCC) (01/31/2019), Diabetes mellitus, type 2 (HCC), GERD (gastroesophageal reflux disease), Hormone replacement therapy (postmenopausal), Hyperlipidemia, Hypertension, Motion sickness, PONV (postoperative nausea and vomiting), Seasonal allergies, and Trigger finger of right thumb (04/06/2021). Ms. Harry was a 58 year old lady with a history of diabetes, GERD, HLD, PCOS, and season (more content not included)...[facility]01-08-2025 History of Present illness Narrative* Gwen Michele, Bernardo - 12/05/2024 9:24 AM EST Images from the original note were not included. [facility] [address] [place] [address] Name: Lyn Harry : 1960 Date: 12/05/24 History & Purpose of Evaluation: Ms. Harry was seen today for audiologic evaluation at the kind request of James Lee CNP. She reports having tinnitus for years and some concerns about hearing loss. She reports tinnitus is always there but sometimes louder volume, is mostly non-bothersome, and she uses a fan to help with sleep. She reports she hears the same in both ears but is having trouble localizing sound for a while. 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 Please see below for other pertinent case history information as reported by Ms. Harry. 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 Skills Ear Surgery R L Vertigo [] [x] Appropriate [x] [] PE Tubes [] [] Dizziness [] [x] In Therapy [] [x] Mastoidectomy [] [] Imbalance [] [x] Social Acoustic Neuroma [] [] Vestibular Rehab [] [x] Depression [] [x] Tympanoplasty [] [] Other: Results: Otoscopy: Performed by ENT prior to testing. Pure[employer] Air & Bone Conduction Audiometry: Right: Normal hearing through 1kHz sloping to moderately-severe notch at 3kHz rising to moderate sensorineural hearing loss. Left: Borderline normal hearing through 1500Hz sloping to moderate sensorineural hearing loss. Speech Audiometry: Speech recognition threshold is in good agreement with puretone thresholds, bilaterally. Right: Word recognition is good (88%) when assessed at a normal conversational loudness level. Left: Word recognition is excellent (96%) when assessed at a normal conversational loudness level. Immittance Audiometry: Right: Tympanometry revealed reduced tympanic membrane mobility and normal middle ear pressure, Type As. Left: Tympanometry revealed immobile tympanic membrane and normal ear canal volume, Type B. Tympanograms repeated bilaterally. Distortion Product Otoacoustic Emissions (DPOAE; 1500-6k Hz): Did not assess. Impression: Today's results reveal significant, slightly asymmetrical, high frequency sensorineural hearing loss, bilaterally. Middle ear testing is consistent with a stiffened middle ear system, bilaterally. Ms. Castellons hearing loss is expected to interfere with speech understanding in background noise and soft speech. She is an ideal hearing aid candidate bilaterally, however she is not interested at this time. Encouraged her to continue use of hearing protection and tinnitus management and to monitor herhearing. Provided a copy of today's results for patient's records. Recommendations: Follow up with ENT. Further testing at ENT's discretion and pt to return per ENT discretion. Otologic clearance for hearing aids at ENT's discretion. Re- evaluate hearing in one year, or sooner, to monitor hearing and r/o progressive hearing loss. Use of hearing protection is recommended. The above was explained to the patient and/or their guardian and they expressed understanding. Electronically Signed by: Bernardo Zheng, [facility] 12/05/24 9:24 AM documented in this [id number] History of Present illness Narrative* Sebas Lee, BEAUTY SALES ADVISOR - 12/05/2024 8:30 AM EST ENT New Patient Visit Patient Name: Lyn Harry MR #: [id number] : 1960 Physicians: Elo Ogden MD (Family); Elo Ogden* (Referring) Chief Complaint/Reason for Visit: Ear ringing right History of Present Illness: Lyn Harry is a 64 y.o. y/o female presenting from Dr. Melvi MD with c/o Ear ringing right. Patient reports she has been experiencing tinnitus, or ringing in her ears, for the past several years that has worsened over the past 6 to 8 months, which she describes as a fuzzy sound. She has noticed a decrease in her hearing & asks people to repeat themselves. 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 She denies history of frequentear infections, ever having ear tubes, or trauma to the ears. She has history of seasonal allergies& uses laverne, Spring through fall. She denies any recent fevers or known infections. History: Past Medical History: Diagnosis Date Breast cancer (HCC) 01/31/2019 Right-Invasive mammary carcinoma Diabetes mellitus, type 2 (HCC) GERD (gastroesophageal reflux disease) Hormone replacement therapy (postmenopausal) Hyperlipidemia Hypertension Motion sickness PONV (postoperative nausea and vomiting) Seasonal allergies Trigger finger of right thumb 04/06/2021 Past Surgical History: Procedure Laterality Date APPENDECTOMY BREAST BIOPSY Right 2019 BREAST LUMPECTOMY Right 02/27/2019 BREAST LUMPECTOMY W/ SENTINEL NODE, NEEDLE LOC, POSS AX DIS Right 02/27/2019 Procedure: RIGHT BREAST LUMPECTOMY WITH SENTINEL NODE BIOPSY WITH NEEDLE LOCALIZATION AND POSSIBLE AXILLARY DISSECTION; Surgeon: Braden Gee MD; Location: Main OR; Service: General Surgery SECTION, CLASSIC 1996 CHOLECYSTECTOMY ROBOTIC XI N/A 08/12/2022 Procedure: CHOLECYSTECTOMY ROBOTIC XI; Surgeon: Braden Gee MD; Location: Main OR; Service: Gen-Robotics COLONOSCOPY 05/19/2017 Normal....Dr. Blackmon D & C WITH LEEP 1994 EXPLORATORY LAPAROTOMY for infertility MM WIRE NEEDLE LOCALIZATION RIGHT Right 02/27/2019 MM NEEDLE LOCALIZATION RIGHT 02/27/2019 MAMMOGRAPHY RADIATION Right 04/2019 trigger finger surg Right 05/2021 at [facility] US BREAST BIOPSY RIGHT Right 01/31/2019 US BREAST BIOPSY RIGHT 01/31/2019, invasive mammary carcinoma US BREAST BIOPSY RIGHT Right 02/06/2019 US BREAST BIOPSY RIGHT Family History Problem Relation Age of Onset No Known Problems Mother COPD Father Lung cancer Paternal Aunt Pancreatic cancer Paternal Grandmother Heart attack Paternal Grandfather Pancreatic cancer Maternal Uncle Breast cancer Neg Hx Social History Socioeconomic History Marital status: Tobacco Use Smoking status: Never Smokeless tobacco: Never Vaping Use Vaping status: Never Used Substance and Sexual Activity Alcohol use: Not Currently Comment: rarely Drug use: No Sexual activity: Yes Partners: Male control/protection: Post-menopausal Social Drivers of Health Financial Resource Strain: Low Risk (09/23/2022) Overall Financial Resource Strain (CARDIA) Difficulty of Paying Living Expenses: Not hard at all Food Insecurity: No Food Insecurity (09/23/2022) Hunger Vital Sign Worried About Running Out of Food in the Last Year: Never true Ran Out of Food in the Last Year: Never true Transportation Needs: No Transportation Needs (09/23/2022) PRAPARE - Transportation Lack of Transportation (Medical): No Lack of Transportation (Non-Medical): No Physical Activity: Insufficiently Active (09/23/2022) Exercise Vital Sign Days of Exercise per Week: 4 days Minutes of Exercise per Session: 20 min Stress: No Stress Concern Present (09/23/2022) [employer] - Occupational Stress Questionnaire Feeling of Stress : Only a little Social Connections: Socially Integrated (09/23/2022) Social Connection and Isolation Panel [NHANES] Frequency of Communication with Friends and Family: Three times a week Frequency of Social Gatherings with Friends and Family: Three times a week Attends Confucianist Services: More than 4 times per year Active Member of Clubs or Organizations: No Attends Club or Organization Meetings: 1 to 4 times per year Marital Status: Housing Stability: Unknown (09/23/2022) Housing Stability Vital Sign Unable to Pay for Housing in the Last Year: No Unstable Housing in the Last Year: No Allergy Information: I have reviewed the patient's allergies. Penicillins Home Medications: Outpatient Medications as of 12/05/2024 Order #: [id number]: Normal Order #: [id number]: Normal Order #: [id number]: Normal Order #: [id number]: Normal ROS: Review of Systems Constitutional: Negative for chills, fever and malaise/fatigue. HENT: Positive for hearing loss and tinnitus. Negative for congestion, ear discharge, ear pain, nosebleeds and sore throat. Eyes: Negative for discharge, pain, photophobia and redness. Cardiovascular: Negative for chest pain, leg swelling, near-syncope and syncope. Respiratory: Negative for cough, shortness of breath, sleep disturbances due to breathing and snoring. Endocrine: Negative for cold intolerance and heat intolerance. Hematologic/Lymphatic: Negative for adenopathy and bleeding problem. Does not bruise/bleed easily. Skin: Negative for color change, dry skin, itching and rash. Musculoskeletal: Negative for falls, joint swelling, muscle cramps and muscle weakness. Gastrointestinal: Negative for nausea and vomiting. Neurological: Negative for dizziness, headaches, light-headedness, loss of balance, numbness, seizures, tremors, vertigo and weakness. Psychiatric/Behavioral: Negative for altered mental status and substance abuse. The patient is not nervous/anxious. Allergic/Immunologic: Positive for environmental allergies (seasonal, uses Laverne Spring through Fall). Negative for persistent infections. Physical Examination: Vital Signs: BP (!) 140/89 Pulse 66 Resp 18 Wt 91.6 kg (201 lb 14.4 oz) SpO2 96% BMI 33.60 kg/m Physical Exam Constitutional: General: She is not in acute distress. Appearance: Normal appearance. She is well-groomed. She is not diaphoretic. HENT: Head: Normocephalic and atraumatic. Right Ear: Ear canal and external ear normal. Decreased hearing noted. No drainage, swelling or tenderness. No middle ear effusion. There is impacted cerumen (excessive brown cerumen partially blocking ear canal removed with loop & forceps). No foreign body. No mastoid tenderness. Tympanic membrane has decreased mobility. Left Ear: Ear canal and external ear normal. Decreased hearing noted. No drainage, swelling or tenderness. No middle ear effusion. No foreign body. No mastoid tenderness. Tympanic membrane is scarred(tympanosclerosis). Tympanic membrane has decreased mobility. Nose: Nose normal. No nasal deformity, septal deviation, laceration, mucosal edema, congestion or rhinorrhea. Right Sinus: No maxillary sinus tenderness or frontal sinus tenderness. Left Sinus: No maxillary sinus tenderness or frontal sinus tenderness. Mouth/Throat: Lips: Blakely. Mouth: Mucous membranes are moist. Pharynx: Oropharynx is clear. Uvula midline. No pharyngeal swelling, oropharyngeal exudate, posterior oropharyngeal erythema or postnasal drip. Eyes: General: Right eye: No discharge. Left eye: No discharge. Lymphadenopathy: Head: Right side of head: No submental or submandibular adenopathy. Left side of head: No submental or submandibular adenopathy. Cervical: No cervical adenopathy. Skin: General: Skin is warm and dry. Neurological: Mental Status: She is alert. Psychiatric: Mood and Affect: Affect normal. Cognition and Memory: Memory normal. Judgment: Judgment normal. Procedure: With the patient in a sitting position utilizing the microscope excessive cerumen was found partially blocking the right canal causing symptoms noted in physical exam. Excessive cerumen was removed from both ear canals using loop & forceps. The canals and tympanic membranes were then visualizedand found to have scarring & decreased movement to both tympanic membranes consistent with tympa nosclerosis, no signs of acute/chronic pathology. Audiometry: WNL until 1000 hertz then sloping to moderated to severe notched hearing at 3k hertz that rises back to moderate sensory hearing loss in the high frequencies on the right side Mild until 1500 hertz sloping to moderate to to severe notched hearing loss on the left side (suspected noise induced bilaterally) Tympanometry: Right: Type As Left: Type B Laboratory and Additional Data Reviewed: Transcriptions 12/05/24 11:51 AM PCP referral & relevant notes in regards to her tinnitus Assessment and Plan: Lyn Harry is a 64 y.o. y/o female presenting with Ear ringing right. Upon physical exam excessive cerumen was found partially blocking the right canal causing symptoms noted in physical exam. Excessive cerumen was removed from both ear canals using loop & forceps.The canals and tympanic membranes were then visualized and found to have scarring & decreased movement to both tympanic membranes consistent with tympanosclerosis, no signs of acute/chronic pathology. Audiometry was performed which revealed WNL until 1000 hertz then sloping to moderated to severe notched hearing at 3k hertz that rises back to moderate sensory hearing loss in the high frequencies on the right side & Mild until 1500 hertz sloping to moderate to to severe notched hearing loss on the left side (suspected noise induced bilaterally). Asymmetrical SNHL with noise induced notches. She is a hearing aid candidate but she does not feel she is ready for hearing aids at this time. She would like to wait. I suggested repeat hearing evaluation in 1 year or sooner for any sudden change in hearing. She was educated about tinnitus & coping mechanisms since there is no cure. Seasonal allergies continue Laverne seasonally. She may use otc nasal saline spray as needed to help with nasal dryness. Follow up in 1 year for repeat hearing evaluation. Follow up sooner for any related or non related problems or concerns. Patient verbalized understanding & is in agreement with the plan of care. Diagnoses and all orders for this visit: Tinnitus of both ears SNHL (sensory-neural hearing loss), asymmetrical Ear ringing, right - Ambulatory referral to ENT - Ambulatory referral to Audiology; Future Excessive cerumen right ear Sebas Lee CNP documented in this [id number] NoteENT New Patient Visit Patient Name: Lyn Harry MR #: [id number] : 1960 Physicians: Elo Ogden MD (Family); Elo Ogden (Referring) Chief Complaint/Reason for Visit: Ear ringing right History of Present Illness: Lyn Harry is a 64 y.o. y/o female presenting from Dr. Melvi MD with c/o Ear ringing right. Patient reports she has been experiencing tinnitus, or ringing in her ears, for the past several years that has worsened over the past 6 to 8 months, which she describes as a fuzzy sound. She has noticed a decrease in her hearing & asks people to repeat themselves. 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 She denies history of frequent ear infections, ever having ear tubes, or trauma to the ears. She has history of seasonal allergies & uses laverne, Spring through fall. She denies any recent fevers or known infections. History: Past Medical History: Diagnosis Date Breast cancer (HCC) 01/31/2019 Right-Invasive mammary carcinoma Diabetes mellitus, type 2 (HCC) GERD (gastroesophageal reflux disease) Hormone replacement therapy (postmenopausal) Hyperlipidemia Hypertension Motion sickness PONV (postoperative nausea and vomiting) Seasonal allergies Trigger finger of right thumb 04/06/2021 Past Surgical History: Procedure Laterality Date APPENDECTOMY BREAST BIOPSY Right 2019 BREAST LUMPECTOMY Right 02/27/2019 BREAST LUMPECTOMY W/ SENTINEL NODE, NEEDLE LOC, POSS AX DIS Right 02/27/2019 Procedure: RIGHT BREAST LUMPECTOMY WITH SENTINEL NODE BIOPSY WITH NEEDLE LOCALIZATION AND POSSIBLE AXILLARY DISSECTION; Surgeon: Braden Gee MD; Location: [facility]; Service: General Surgery SECTION, CLASSIC 1996 CHOLECYSTECTOMY ROBOTIC XI N/A 08/12/2022 Procedure: CHOLECYSTECTOMY ROBOTIC XI; Surgeon: Braden Gee MD; Location: [facility]; Service: Gen-Robotics COLONOSCOPY 05/19/2017 Normal....Dr. Blackmon D & C WITH LEEP 1994 EXPLORATORY LAPAROTOMY for infertility MM WIRE NEEDLE LOCALIZATION RIGHT Right 02/27/2019 MM NEEDLE LOCALIZATION RIGHT 02/27/2019 MAMMOGRAPHY RADIATION Right 04/2019 trigger finger surg Right 05/2021 at [facility] US BREAST BIOPSY RIGHT Right 01/31/2019 US BREAST BIOPSY RIGHT 01/31/2019, invasive mammary carcinoma US BREAST BIOPSY RIGHT Right 02/06/2019 US BREAST BIOPSY RIGHT Family History Problem Relation Age of Onset No Known Problems Mother COPD Father Lung cancer Paternal Aunt Pancreatic cancer Paternal Grandmother Heart attack Paternal Grandfather Pancreatic cancer Maternal Uncle Breast cancer Neg Hx Social History Socioeconomic History Marital status: Tobacco Use Smoking status: Never Smokeless tobacco: Never Vaping Use Vaping status: Never Used Substance and Sexual Activity Alcohol use: Not Currently Comment: rarely Drug use: No Sexual activity: Yes Partners: Male control/protection: Post-menopausal Social Drivers of Health Financial Resource Strain: Low Risk (09/23/2022) Overall Financial Resource Strain (CARDIA) Difficulty of Paying Living Expenses: Not hard at all Food Insecurity: No Food Insecurity (09/23/2022) Hunger Vital Sign Worried About Running Out of Food in the Last Year: Never true Ran Out of Food in the Last Year: Never true Transportation Needs: No Transportation Needs (09/23/2022) PRAPARE - Transportation Lack of Transportation (Medical): No Lack of Transportation (Non-Medical): No Physical Activity: Insufficiently Active (09/23/2022) Exercise Vital Sign Days of Exercise per Week: 4 days Minutes of Exercise per Session: 20 min Stress: No Stress Concern Present (09/23/2022) [employer] - Occupational Stress Questionnaire Feeling of Stress : Only a little Social Connections: Socially Integrated (09/23/2022) Social Connection and Isolation Panel [NHANES] Frequency of Communication with Friends and Family: Three times a week Frequency of Social Gatherings with Friends and Family: Three times a week Attends Confucianist Services: More than 4 times per year Active Member of Clubs or Organizations: No Attends Club or Organization Meetings: 1 to 4 times per year Marital Status: Housing Stability: Unknown (09/23/2022) Housing Stability Vital Sign Unable to Pay for Housing in the Last Year: No Unstable Housing in the Last Year: No Allergy Information: I have reviewed the patient's allergies. Penicillins Home Medications: Outpatient Medications as of 12/05/2024 Order #: [id number]: Normal Order #: [id number]: Normal Order #: [id number]: Normal Order #: [id number]: Normal ROS: Review of Systems Constitutional: Negative for chills, fever and malaise/fatigue. HENT: Positive for hearing loss and tinnitus. Negative for congestion, ear discharge, ea (more content not included)...[id number] NoteChief Complaint Patient presents with Annual Exam Already got flu shot-No pap HPI: Lyn Harry is a 64 y.o. lady with a history of diabetes, GERD, HLD, PCOS, and seasonal allergies and right breast carcinoma. Former patient of . Hypertension: 11 yrs chronic, has not been checking her blood pressure recently at home. Has lisinopril 5 mg that she takes at bedtime. Denies any headaches, blurry vision, tingling/numbness in extremities Has been recently dealing with plantar fasciitis in her right ankle which has been bothering her and following up with chiropractor and fearing she needs to take a steroid shot . Has not tried meloxicam. DM: 10 yrs or so, she has been cutting back on the pop drinks. Compliant on metformin 500 mg BID , took Ozempic and gave her a lot of nausea and vomiting, was stopped for previous history of choledocholithiasis. Has been trying to lose weight to help with her diabetes control and hopefully taken off metformin. History of Present Illness The patient presents for evaluation of multiple medical concerns. She has reviewed her recent blood work results and reports no specific concerns. She is curious about the impact of statins on cholesterol levels. She has been prescribed metformin, which she takes twice daily, and believes it aids in weight management. She maintains an active lifestyle, walking 3 to 4 times a week, and plans to incorporate treadmill exercises. She requests a refill of her metformin prescription. She also takes lisinopril in the morning, although the instructions suggest taking it before bed. She occasionally experiences loose stools and has noticed what appears to be a pill in her stool. She has a history of irritable bowel syndrome. Breast cancer: She has discontinued Prolia due to its high cost, with her last injection administered in February 2023. She plans to discuss this with her oncologist in the summer. She has also stopped taking exemestane after a 5-year course. She was informed that Prolia is also available in pill form, which may be more affordable. Her next DEXA scan is scheduled for fall 2024. She has not been taking vitamin D and calcium supplements due to past instances of elevated levels. She has no history of kidney stones. She is considering Fosamax as a potential treatment option. She underwent a Pap smear in 2022 and is unsure if she needs another one. Tinnitus: She has been experiencing tinnitus, or ringing in her ears, for the past 6 to 8 months, which she describes as a fuzzy sound. She has noticed a decrease in her hearing ability. She reports no exposure to loud noises or vibrations. She recently had an eye exam. She has found relief from foot pain through chiropractic massage therapy and has switched to different footwear. She is currently retired and spends less time on her feet. Past Medical History: Diagnosis Date Breast cancer (HCC) 01/31/2019 Right-Invasive mammary carcinoma Diabetes mellitus, type 2 (HCC) GERD (gastroesophageal reflux disease) Hormone replacement therapy (postmenopausal) Hyperlipidemia Hypertension Motion sickness PONV (postoperative nausea and vomiting) Seasonal allergies Trigger finger of right thumb 04/06/2021 Past Surgical History: Procedure Laterality Date APPENDECTOMY BREAST BIOPSY Right 2019 BREAST LUMPECTOMY Right 02/27/2019 BREAST LUMPECTOMY W/ SENTINEL NODE, NEEDLE LOC, POSS AX DIS Right 02/27/2019 Procedure: RIGHT BREAST LUMPECTOMY WITH SENTINEL NODE BIOPSY WITH NEEDLE LOCALIZATION AND POSSIBLE AXILLARY DISSECTION; Surgeon: Braden Gee MD; Location: [facility]; Service: General Surgery SECTION, CLASSIC 1996 CHOLECYSTECTOMY ROBOTIC XI N/A 08/12/2022 Procedure: CHOLECYSTECTOMY ROBOTIC XI; Surgeon: Braden Gee MD; Location: [facility]; Service: Gen-Robotics COLONOSCOPY 05/19/2017 Normal....Dr. Blackmon D & C WITH LEEP 1994 EXPLORATORY LAPAROTOMY for infertility MM WIRE NEEDLE LOCALIZATION RIGHT Right 02/27/2019 MM NEEDLE LOCALIZATION RIGHT 02/27/2019 MAMMOGRAPHY RADIATION Right 04/2019 trigger finger surg Right 05/2021 at [facility] US BREAST BIOPSY RIGHT Right 01/31/2019 US BREAST BIOPSY RIGHT 01/31/2019, invasive mammary carcinoma US BREAST BIOPSY RIGHT Right 02/06/2019 US BREAST BIOPSY RIGHT Family History Problem Relation Age of Onset No Known Problems Mother COPD Father Lung cancer Paternal Aunt Pancreatic cancer Paternal Grandmother Heart attack Paternal Grandfather Pancreatic cancer Maternal Uncle Breast cancer Neg Hx Social History Tobacco Use Smoking status: Never Smokeless tobacco: Never Vaping Use Vaping status: Never Used Substance Use Topics Alcohol use: Not Currently Comment: rarely Drug use: No Review of Systems Vitals: 10/24/24 0822 BP: 130/83 BP Location: Right arm Patient Position: Sitting BP Cuff Size: Adult Pulse: 71 Resp: 16 (more content not included)...[facility]11-27-2024 History of Present illness Narrative* Elo Ogden MD - 10/24/2024 9:09 AM EST Chief Complaint Patient presents with Annual Exam Already got flu shot-No pap HPI: Lyn Harry is a 64 y.o. lady with a history of diabetes, GERD, HLD, PCOS, and seasonal allergies and right breast carcinoma. Former patient of . Hypertension: 11 yrs chronic, has not been checking her blood pressure recently at home. Has lisinopril 5 mg thatshe takes at bedtime. Denies any headaches, blurry vision, tingling/numbness in extremities Has been recently dealing with plantar fasciitis in her right ankle which has been bothering her and following up with chiropractor and fearing she needs to take a steroid shot . Has not tried meloxicam. DM: 10 yrs or so, she has been cutting back on the pop drinks. Compliant on metformin 500 mg BID , tookOzempic and gave her a lot of nausea and vomiting, was stopped for previous history of choledocholithiasis. Has been trying to lose weight to help with her diabetes control and hopefully taken off metformin. History of Present Illness The patient presents for evaluation of multiple medical concerns. She has reviewed her recent blood work results and reports no specific concerns. She is curious about the impact of statins on cholesterol levels. She has been prescribed metformin, which she takes twice daily, and believes it aids in weight management. She maintains an active lifestyle, walking 3 to 4 times a week, and plans to incorporate treadmill exercises. She requests a refill of her metformin prescription. She also takes lisinopril in the morning, although the instructions suggest taking it before bed. She occasionally experiences loose stools and has noticed what appears to be a pill in her stool. She has a history of irritable bowel syndrome. Breast cancer: She has discontinued Prolia due to its high cost, with her last injection administered in February 2023. She plans to discuss this with her oncologist in the summer. She has also stopped taking exemestane after a 5-year course. She was informed that Prolia is also available in pill form, which may be more affordable. Her next DEXA scan is scheduled for fall 2024. She has not been taking vitamin D and calcium supplements due to past instances of elevated levels. She has no history of kidney stones.She is considering Fosamax as a potential treatment option. She underwent a Pap smear in 2022 and is unsure if she needs another one. Tinnitus: She has been experiencing tinnitus, or ringing in her ears, for the past 6 to 8 months, which she describes as a fuzzy sound. She has noticed a decrease in her hearing ability. She reports no exposure to loud noises or vibrations. She recently had an eye exam. She has found relief from foot pain through chiropractic massage therapy and has switched to different footwear. She is currently retired and spends less time on her feet. Past Medical History: Diagnosis Date Breast cancer (HCC) 01/31/2019 Right-Invasive mammary carcinoma Diabetes mellitus, type 2 (HCC) GERD (gastroesophageal reflux disease) Hormone replacement therapy (postmenopausal) Hyperlipidemia Hypertension Motion sickness PONV (postoperative nausea and vomiting) Seasonal allergies Trigger finger of right thumb 04/06/2021 Past Surgical History: Procedure Laterality Date APPENDECTOMY BREAST BIOPSY Right 2019 BREAST LUMPECTOMY Right 02/27/2019 BREAST LUMPECTOMY W/ SENTINEL NODE, NEEDLE LOC, POSS AX DIS Right 02/27/2019 Procedure: RIGHT BREAST LUMPECTOMY WITH SENTINEL NODE BIOPSY WITH NEEDLE LOCALIZATION AND POSSIBLE AXILLARY DISSECTION; Surgeon: Braden Gee MD; Location: [facility]; Service: General Surgery SECTION, CLASSIC 1996 CHOLECYSTECTOMY ROBOTIC XI N/A 08/12/2022 Procedure: CHOLECYSTECTOMY ROBOTIC XI; Surgeon: Braden Gee MD; Location: [facility]; Service: Gen-Robotics COLONOSCOPY 05/19/2017 Normal....Dr. Blackmon D & C WITH LEEP 1994 EXPLORATORY LAPAROTOMY for infertility MM WIRE NEEDLE LOCALIZATION RIGHT Right 02/27/2019 MM NEEDLE LOCALIZATION RIGHT 02/27/2019 MAMMOGRAPHY RADIATION Right 04/2019 trigger finger surg Right 05/2021 at [facility] US BREAST BIOPSY RIGHT Right 01/31/2019 US BREAST BIOPSY RIGHT 01/31/2019, invasive mammary carcinoma US BREAST BIOPSY RIGHT Right 02/06/2019 US BREAST BIOPSY RIGHT Family History Problem Relation Age of Onset No Known Problems Mother COPD Father Lung cancer Paternal Aunt Pancreatic cancer Paternal Grandmother Heart attack Paternal Grandfather Pancreatic cancer Maternal Uncle Breast cancer Neg Hx Social History Tobacco Use Smoking status: Never Smokeless tobacco: Never Vaping Use Vaping status: Never Used Substance Use Topics Alcohol use: Not Currently Comment: rarely Drug use: No Review of Systems Vitals: 10/24/24 0822 BP: 130/83 BP Location: Right arm Patient Position: Sitting BP Cuff Size: Adult Pulse: 71 Resp: 16 Temp: 98 F (36.7 C) TempSrc: Temporal SpO2: 96% Weight: 90.3 kg (199 lb) Height: 5' 5" Estimated body mass index is 33.12 kg/m as calculated from the following: Height as of this encounter: 5' 5". Weight as of this encounter: 90.3 kg (199 lb). Physical Exam Constitutional: General: She is not in acute distress. Appearance: She is not ill-appearing. HENT: Head: Normocephalic and atraumatic. Right Ear: Tympanic membrane, ear canal and external ear normal. Left Ear: Tympanic membrane, ear canal and external ear normal. Nose: Nose normal. Mouth/Throat: Mouth: Mucous membranes are moist. Pharynx: Oropharynx is clear. No oropharyngeal exudate or posterior oropharyngeal erythema. Eyes: Extraocular Movements: Extraocular movements intact. Conjunctiva/sclera: Conjunctivae normal. Pupils: Pupils are equal, round, and reactive to light. Cardiovascular: Rate and Rhythm: Normal rate and regular rhythm. Pulses: Normal pulses. Heart sounds: Normal heart sounds. No murmur heard. No gallop. Pulmonary: Effort: Pulmonary effort is normal. Breath sounds: Normal breath sounds. No wheezing, rhonchi or rales. Chest: Chest wall: No tenderness. Abdominal: General: Abdomen is flat. Bowel sounds are normal. There is no distension. Palpations: Abdomen is soft. There is no mass. Tenderness: There is no abdominal tenderness. There is no right CVA tenderness, left CVA tenderness, guarding or rebound. Musculoskeletal: General: No tenderness. Normal range of motion. Cervical back: Normal range of motion and neck supple. No rigidity. No muscular tenderness. Right lower leg: No edema. Left lower leg: No edema. Lymphadenopathy: Cervical: No cervical adenopathy. Skin: General: Skin is warm. Findings: No erythema or rash. Comments: No swelling/edema bilaterally, no abnormal discoloration/erythema or varicosities appreciated. Normal pedal pulses 2/2 bilaterally. Monofilament testing normal bilaterally. Neurological: General: No focal deficit present. Mental Status: She is alert and oriented to person, place, and time. Sensory: No sensory deficit. Motor: No weakness. Gait: Gait normal. Psychiatric: Mood and Affect: Mood normal. Behavior: Behavior normal. Thought Content: Thought content normal. Judgment: Judgment normal. OARRS/NARxCHECK Report Received and Assessed: Date controlled substance agreement signed: No data found Date of last drug screen: @Exam@ PHQ9: FREDY-7 Tobacco Counseling: Counseling given: Not Answered Patient's Medications New Prescriptions No medications on file Previous Medications No medications on file Modified Medications Modified Medication Previous Medication ATORVASTATIN (LIPITOR) 40 MG TABLET atorvastatin (LIPITOR) 40 MG tablet Take 1 (one) tablet (40 mg total) by mouth daily . Take 1 (one) tablet (40 mg total) by mouth daily. FAMOTIDINE (PEPCID) 20 MG TABLET famotidine (PEPCID) 20 MG tablet Take 1 (one) tablet (20 mg total) by mouth 2 (two) times a day . Take 1 (one) tablet (20 mg total) by mouth 2 (two) times a day . LISINOPRIL (PRINIVIL,ZESTRIL) 10 MG TABLET lisinopriL (PRINIVIL,ZESTRIL) 10 MG tablet Take 1 (one) tablet (10 mg total) by mouth at bedtime . Take 1 (one) tablet (10 mg total) by mouth at bedtime . METFORMIN (GLUCOPHAGE XR) 500 MG 24 HR TABLET metFORMIN (Glucophage XR) 500 MG 24 hr tablet Take 1 (one) tablet (500 mg total) by mouth 2 (two) times a day with breakfast and lunch . Take 1 (one) tablet (500 mg total) by mouth 2 (two) times a day with breakfast and lunch . Discontinued Medications EXEMESTANE (AROMASIN) 25 MG TABLET Take 1 (one) tablet (25 mg total) by mouth every morning . Health Maintenance Due Topic Date Due Respiratory Syncytial Virus Immunization: Risk, 60-74 Risk, or 75+ (1 - Risk 60-74 years 1-dose series) Never done Depression Screening/Follow-Up (PHQ-2/9) 08/10/2023 COVID-19 Vaccine ( season) 2024 Assessment & Plan Problem List Items Addressed This Visit Digestive Gastroesophageal reflux disease without esophagitis Relevant Medications famotidine (PEPCID) 20 MG tablet Endocrine Type 2 diabetes mellitus without complication, without long-term current use of insulin (HCC) - Primary Relevant Medications atorvastatin (LIPITOR) 40 MG tablet metFORMIN (Glucophage XR) 500 MG 24 hr tablet Other Relevant Orders TSH with Reflex Free T4 Microalbumin/Creatinine Ratio, UR Random Hemoglobin A1c Lipid Panel Comprehensive Metabolic Panel HM DIABETES FOOT EXAM (Completed) Cardiovascular and Mediastinum Essential hypertension Relevant Medications lisinopriL (PRINIVIL,ZESTRIL) 10 MG tablet Other Visit Diagnoses Encounter for screening mammogram for malignant neoplasm of breast Relevant Orders Mammography Screening Geovanny Bilateral Assessment & Plan 1. Diabetes Mellitus. Her liver and kidney functions, as well as electrolytes, are within normal limits. However, there is a slight increase in her A1c levels from 6.1 to 6.9. She is advised to continue her metformin regimen, taking it twice daily with meals. A prescription for metformin will be provided. Her Lipitor prescription will be refilled until 02/2025, and her lisinopril prescription will be refilled for the year. Lab work will be ordered for 2024. If her A1c levels do not improve, a switch to immediate release metformin may be considered. 2. Hyperlipidemia. Her total cholesterol is within normal limits, but her triglycerides have increased to nearly 200, and her HDL has slightly decreased. She is advised to pay more attention to her diet. Exercise is recommended to help increase HDL levels. 3. Osteoporosis. Discontinuation of Prolia could potentially lead to rebound bone resorption. However, her risk of bone-related issues is reduced as she is no longer on exemestane. A DEXA scan will be ordered for 08/2025. She is advised to take vitamin D and calcium supplements. Fosamax and Reclast were discussed as potential treatment options. 4. Tinnitus. She reports increased ringing in her ears over the past 6-8 months, primarily in one ear. A referral to ENT will be made for further evaluation, including a hearing test with audiology. 5. Medication Management. Refills for metformin, Lipitor, and lisinopril will be sent to [facility]'s pharmacy on [facility]. 6. Health Maintenance. Her mammogram is up to date, and her Pap smear was negative for HPV. A mammogram will be ordered for 01/2025. A foot exam will be conducted today. After discussing the use of ambient listening and audio recording in generating medical documentation, the patient verbally consented to use of this technology for today's visit. Return in about 1 year (around 10/24/2025) for Annual Exam. Blood work prior to next visit ELO OGDEN MD [facility] [address] [facility] [address] [facility] [id number] Dept: [phone] 08/10/2022 2:29 PM Depression Screening Little interest or pleasure in doing things 0 Feeling down, depressed, or hopeless 0 PHQ-2 Total Score 0 Trouble falling or staying asleep, or sleeping too much 1 Feeling tired or having little energy 1 Poor appetite or overeating 1 Feeling bad about yourself - or that you are a failure or have let yourself or your family down 0 Trouble concentrating on things, such as reading the newspaper or watching television 0 Moving or speaking so slowly that other people could have noticed. Or the opposite - being so fidgety or restless that you have been moving around a lot more than usual 0 Thoughts that you would be better off , or of hurting yourself in some way 0 PHQ-9 Total Score 3 If you checked off any problems, how difficult have these problems made it for you to do your work,take care of things at home, or get along with other people? Not difficult at all documented in this [id number] History of Present illness Narrative* Shannan Cevallos PA-C - 06/14/2024 11:20 AM EDT DATE OF SERVICE: 06/14/2024 PATIENT NAME: Dahiana Harry : 1960 AGE: 64 y.o. CLINIC NUMBER: [id number] Visit type: Established patient Chief Complaint Patient presents with Basal Cell Carcinoma FERN 05/01/2024 with Shannan Cevallos PA-C (BT). Subjective HISTORY OF PRESENT ILLNESS: This is a 64 y.o. female who presents for evaluation of Basal cell carcinoma; last seen 05/01/2024. A. Skin, left ayala: 05/01/2024 Basal cell carcinoma, superficial type. B. Skin, left lower lateral leg: Basal cell carcinoma, superficial type. F/u- superficial basal cell located on the lower left lateral leg, and left ayala; last seen 05/01/2024. At this visit patient was treated with Imiquimod 5% cream once a day for 6 weeks will do 5-6 days in a row then take a break patient has been using it since 05/04/2024. Admits redness, roughness, flaking, itching, bleeding, and tenderness. Patient does believe that the areas have resolved. History of pacemaker/ defibrillator? No History of HIV/ Hep C? No Allergies to Lidocaine, Epinephrine, Latex or Adhesive? No Review of Systems There were no vitals filed for this visit. PHYSICAL EXAM GENERAL APPEARANCE:?Alert & oriented x3, pleasant. Well developed, well nourished. PSYCH: appropriate mood and affect DERMATOLOGY: (all measurements are in cm, unless otherwise noted) 1. Basal cell carcinoma (BCC) of skin of left lower extremity including hip (2) Left Lower Leg - Anterior Annular erythematous healing nodule with central scaling Left Lower Leg - Anterior Increased erythema, tender around edge [x]Chronic []Acute/New []Stable [x]Flaring/Exacerbation []Uncertain Prognosis []OTC Management [x]Prescription Management Educated and reassured. Treatment options, risks, benefits, and expectations reviewed. Continue: -Imiquimod 5% cream apply topically once a day for 2 more weeks. Follow up in about 4 months (around 10/15/2024). Shannan Cevallos PA-C 06/14/24 11:07 AM REFERRING MD: documented in this [facility]06-28-2024 Telephone encounter Note* Telephone Encounter - Cassandra Dye LPN - 05/25/2024 4:32 PM EDT Last OV 10/03/23. Next OV 10/04/24. [id number] Miscellaneous Notes* Telephone Encounter - Cassandra Dye LPN - 05/25/2024 4:32 PM EDT Last OV 10/03/23. Next OV 10/04/24. documented in this [id number] Instructions* Patient Instructions* Shannan Calzada CNP - 05/14/2024 3:28 PM EDT Stop Exemestane in May, Follow up in one year documented in this [id number] History of Present illness Narrative* Shannan Calzada CNP - 05/14/2024 3:00 PM EDT Breast Cancer Clinic Note Breast Cancer Clinic Note Date of service: 05/14/2024 Referring Physician: Braden Gee MD PCP: Dereje Treoj MD Diagnosis/chief Complaint: Right breast invasive ductal carcinoma, ER/AL +, HER2/marily negative AJCC stage: pT1c pN0 Mx, Stage IA Date of diagnosis: 01/31/19 Goal of treatment: curative Treatment delivered: Right breast lumpectomy with SLND Reason for visit: R breast invasive ductal carcinoma Interval History: Ms. Harry is here to follow-up while on adjuvant endocrine therapy with exemestane. She seems to be tolerating this well. She denies any new issues. No new medications. She last received Prolia on 09/07/23 and canceled her February appointment due to financial constraints (she owed $3000 out of pocket). HPI: Ms. Harry is a 58 year old lady with a history of diabetes, GERD, HLD, PCOS, and seasonal allergies who is being seen by oncology for a new diagnosis of stage IA right breast invasive ductal carcinoma, ER/AL +, HER2/marily negative. The patient states that she was not having any issues prior to the diagnosis. This was found on a routine screening mammogram. She says she had a mammogram last year thatwas normal. She had a mammogram at the end of December which noted a right breast lesion that was concerning for malignancy. Given this they proceeded with a biopsy which confirmed right breast invasive ductal carcinoma, ER AL positive, HER-2/marily negative. She was then referred to see Dr. Gee. They discussed surgical options and the patient elected to proceed with a right breast lumpectomy andsentinel lymph node dissection. She tolerated surgery well and is healing well from her surgery. This was performed in early February. Her final pathology shows a tumor measuring up to 1.9 cm. The sentinel lymph node were negative for malignancy. It was overall grade 1. Her final pathology shows a pT1c pN0 Mx stage I a invasive ductal carcinoma of the right breast, ER/AL positive, HER-2/marily negative. She is healing well from the surgery and she is here today to discuss next steps in her therapy. She denies any family history of breast cancer. No family history of ovarian cancer or endometrial cancer. Reproductive risk factors: Age of menarche at 17 years Age of menopause at 56 years. 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 control pills: yes. Hormone replacement therapy: yes. Caffeine intake yes History of prior breast biopsy no History of prior breast cancer no Family History : Breast cancer no Ovarian Cancer no Endometrial cancer no Family History of breast disease no ROS: General- Denies weakness, fever/chills, weight gain/loss, fatigue, change in appetite, or cold and flu symptoms HEENT: Denies hearing changes or tinnitus, vision changes, sinus pain/tenderness, nasal congestion,epistaxis, gingival bleed, sore throat, or mouth sores Cardiac; Denies CP, palpitations, dizziness, claudication, or QUINN Pulmonary- Denies SOB, wheezing, PND, or cough GI- Denies nausea and vomiting, dysphagia, heartburn, abdominal pain, diarrhea or constipation - Denies urgency, frequency, hematuria or incontinence, complains of burning when urinating Endo- Denies excessive sweating, polyuria, or polydypsia MS - Denies joint stiffness swelling, or decreased ROM, Neuro- Denies loss of consciousness, numbness or tingling Skin- Denies jaundice, rashes, or open lesions Heme- Denies night sweats, signs and symptoms of infection, easily bleeding or bruising Psych- Denies signs and symptoms of depression or suicidal thoughts Past Medical History: Diagnosis Date Breast cancer (HCC) 01/31/2019 Right-Invasive mammary carcinoma Diabetes mellitus, type 2 (HCC) GERD (gastroesophageal reflux disease) Hormone replacement therapy (postmenopausal) Hyperlipidemia Hypertension Motion sickness PONV (postoperative nausea and vomiting) Seasonal allergies Trigger finger of right thumb 04/06/2021 Past Surgical History: Procedure Laterality Date APPENDECTOMY BREAST BIOPSY Right 2019 BREAST LUMPECTOMY Right 02/27/2019 BREAST LUMPECTOMY W/ SENTINEL NODE, NEEDLE LOC, POSS AX DIS Right 02/27/2019 Procedure: RIGHT BREAST LUMPECTOMY WITH SENTINEL NODE BIOPSY WITH NEEDLE LOCALIZATION AND POSSIBLE AXILLARY DISSECTION; Surgeon: Braden Gee MD; Location: Main OR; Service: General Surgery SECTION, CLASSIC 1996 CHOLECYSTECTOMY ROBOTIC XI N/A 08/12/2022 Procedure: CHOLECYSTECTOMY ROBOTIC XI; Surgeon: Braden Gee MD; Location: Main OR; Service: Gen-Robotics COLONOSCOPY 05/19/2017 Normal....Dr. Blackmon D & C WITH LEEP 1994 EXPLORATORY LAPAROTOMY for infertility MM WIRE NEEDLE LOCALIZATION RIGHT Right 02/27/2019 MM NEEDLE LOCALIZATION RIGHT 02/27/2019 MAMMOGRAPHY RADIATION Right 04/2019 trigger finger surg Right 05/2021 at [facility] BREAST BIOPSY RIGHT Right 01/31/2019 US BREAST BIOPSY RIGHT 01/31/2019, invasive mammary carcinoma US BREAST BIOPSY RIGHT Right 02/06/2019 US BREAST BIOPSY RIGHT Family History Problem Relation Age of Onset No Known Problems Mother COPD Father Lung cancer Paternal Aunt Pancreatic cancer Paternal Grandmother Heart attack Paternal Grandfather Pancreatic cancer Maternal Uncle Breast cancer Neg Hx Social History Socioeconomic History Marital status: Tobacco Use Smoking status: Never Smokeless tobacco: Never Vaping Use Vaping Use: Never used Substance and Sexual Activity Alcohol use: Not Currently Comment: rarely Drug use: No Sexual activity: Yes Partners: Male control/protection: Post-menopausal Social Determinants of Health Financial Resource Strain: Low Risk (09/23/2022) Overall Financial Resource Strain (CARDIA) Difficulty of Paying Living Expenses: Not hard at all Food Insecurity: No Food Insecurity (09/23/2022) Hunger Vital Sign Worried About Running Out of Food in the Last Year: Never true Ran Out of Food in the Last Year: Never true Transportation Needs: No Transportation Needs (09/23/2022) PRAPARE - Transportation Lack of Transportation (Medical): No Lack of Transportation (Non-Medical): No Physical Activity: Insufficiently Active (09/23/2022) Exercise Vital Sign Days of Exercise per Week: 4 days Minutes of Exercise per Session: 20 min Stress: No Stress Concern Present (09/23/2022) [employer] - Occupational Stress Questionnaire Feeling of Stress : Only a little Social Connections: Socially Integrated (09/23/2022) Social Connection and Isolation Panel [NHANES] Frequency of Communication with Friends and Family: Three times a week Frequency of Social Gatherings with Friends and Family: Three times a week Attends Confucianist Services: More than 4 times per year Active Member of Clubs or Organizations: No Attends Club or Organization Meetings: 1 to 4 times per year Marital Status: Housing Stability: Unknown (09/23/2022) Housing Stability Vital Sign Unable to Pay for Housing in the Last Year: No Unstable Housing in the Last Year: No Allergies Allergen Reactions Penicillins Swelling Strong family history of penicillin allergy. Current Outpatient Medications: atorvastatin (LIPITOR) 40 MG tablet, Take 1 (one) tablet (40 mg total) by mouth daily ., Disp: 90 tablet, Rfl: 3 exemestane (AROMASIN) 25 mg tablet, Take 1 (one) tablet (25 mg total) by mouth every morning ., Disp: 90 tablet, Rfl: 3 famotidine (PEPCID) 20 MG tablet, Take 1 (one) tablet (20 mg total) by mouth 2 (two) times a day .,Disp: 180 tablet, Rfl: 3 lisinopriL (PRINIVIL,ZESTRIL) 10 MG tablet, Take 1 (one) tablet (10 mg total) by mouth at bedtime ., Disp: 90 tablet, Rfl: 3 metFORMIN (Glucophage XR) 500 MG 24 hr tablet, Take 1 (one) tablet (500 mg total) by mouth 2 (two) times a day with breakfast and lunch ., Disp: 90 tablet, Rfl: 1 Physical exam: ECOG PS: 0 PACU Vitals 05/14/24 1508 BP: 122/78 Pulse: 80 Temp: 98.3 F (36.8 C) SpO2: 90% General: well-appearing, no acute distress HEENT: NCAT, sclera anicteric, moist mm, o/p clear , no oral mucosal lesions Neck: supple, no supraclavicular adenopathy Lymph: no cervical, supraclavicular, or axillary LAD Chest: CTAB, no w/r/r, no respiratory distress CV: RRR, no S3 S4 gallops or murmurs Abd: soft, NT/ND, no HSM or masses, + BS Extrem: wwp, no c/c/e Skin: Slight yellow discoloration of the right breast no rashes or lesions Neuro: alert, oriented, CN intact, speech fluent, strength full and symmetric Breast: Right breast with 3 cm horizontal incision that is located about 2 cm above the nipple, well-healed, no erythema or drainage. No masses palpated in right breast. No axillary adenopathy appreciated. Right axilla with what appears to be adipose tissue noted. Left breast with no masses palpated or skin changes or nipple discharge. No axillary adenopathy. Psych: Mood normal, Affect normal Labs: Lab Results Component Value Date WBC 4.32 (L) 08/05/2022 HGB 13.6 08/05/2022 HCT 37.8 08/05/2022 MCV 90.0 08/05/2022 PLT 160 08/05/2022 RBC 4.20 08/05/2022 Lab Results Component Value Date GLUCOSE 140 (H) 09/27/2023 CALCIUM 9.3 09/27/2023 NA 140 09/27/2023 K 4.3 09/27/2023 CL 110 (H) 09/27/2023 BUN 12 09/27/2023 CREATININE 0.88 09/27/2023 Lab Results Component Value Date ALT 30 09/27/2023 AST 18 09/27/2023 ALKPHOS 51 09/27/2023 BILITOT 0.8 09/27/2023 Imaging: Screening mammogram 01/31/24 Postsurgical/post treatment findings are noted in the right breast. Additional benign-appearing calcification noted. No developing mass, suspicious microcalcifications or unexpected architectural distortion. IMPRESSION:Benign findings. BIRADS - CATEGORY 2 Benign, no evidence of malignancy. Normal interval follow-up is recommended in 12 months. OVERALL ASSESSMENT - BENIGN DEXA Scan 09/01/2023 Normal bone density Screening mammogram 01/27/2023 Heterogeneously dense fibroglandular tissue is present. There are no suspicious dominant masses or suspicious-appearing clusters of calcification. A linear scar marker is placed on the superior rightbreast. Surgical and/or radiation therapy changes persist here without suspicious change. IMPRESSION: Unchanged mammogram with no radiographic evidence of malignancy. BI-RADS:BIRADS - CATEGORY 2 Benign, no evidence of malignancy. Normal interval follow-up is recommended in 12 months. OVERALL ASSESSMENT - BENIGN DEXA Scan 08/18/2021 Normal bone density. Interval bone loss compared to 2019. Screening mammogram 01/22/2021: Expected post-treatment changes in the right breast. No mammographic evidence for malignancy in either breast. BIRADS: Category 2 - Benign, no evidence of malignancy. Normal interval follow-up is recommended in 12 months. OVERALL ASSESSMENT - BENIGN Mammogram 01/22/20: No mammographic or sonographic evidence of malignancy. BIRADS - CATEGORY 2 Benign, no evidence of malignancy. Normal interval follow-up is recommended in 12 months. DEXA 08/17/19: Normal Mammogram 01/24/19: 1. Suspicious mass within the right breast at 12:00 5 cm from the nipple. 2. Benign complicated appearing cyst within the left breast at 10:00 4 cm from the nipple. OVERALL BIRADS: 4C-HIGH SUSPICION FOR MALIGNANCY-BIOPSY IS RECOMMENDED. RECOMMENDATION: 1: Ultrasound-guided biopsy of the right breast is recommended. Pathology: Right breast Lumpectomy 02/27/19: Histologic type: Invasive ductal carcinoma, not otherwise specified Histologic ([place]) grade: Glandular/Tubular differentiation: Score 3 Nuclear pleomorphism: Score 1 Mitotic rate: Score 1 Overall grade: Grade 1 (scores of 3, 4, or 5) Margins: Invasive carcinoma margins: Uninvolved by invasive carcinoma Distance from closest margin: Inferior margin, 2 mm DCIS margins: Uninvolved by DCIS Distance from closest margin: Inferior margin, 6 mm Pathologic Stage (AJCC 8th Ed.): pT1c pN0(sn) Procedure: Partial mastectomy Specimen laterality: Right Tumor site: 12 o'clock Tumor size: 1.9 cm Tumor focality: Single focus of invasive carcinoma Ductal carcinoma in-situ (DCIS): Present Tumor extension: Skin: Skin is not present Nipple: Nipple is not present Skeletal muscle: No skeletal muscle is present Regional lymph nodes: Uninvolved by tumor cells Number of lymph nodes examined: 4 Number of sentinel lymph nodes examined: 4 Treatment effect: No known presurgical therapy Lymphovascular invasion: Not identified Dermal lymphovascular invasion: No skin present Additional pathologic findings: None Ancillary studies: (performed on prior biopsy [id number]) ER: Positive ( 100%, 3+ intensity, resulted by image analysis) AL: Positive ( 100%, 3+ intensity, resulted by image analysis) HER2: Negative (0, resulted by image analysis) A. Lymph node(s), Axillary, [place], Right, lymphadenectomy: One lymph node, negative for malignancy (0/1). B. Lymph node(s), Axillary, [place], Right, lymphadenectomy: One lymph node, negative for malignancy (0/1). C. Breast, Right, lumpectomy: 1. Invasive ductal carcinoma. See synoptic report. 2. The margins of excision are uninvolved by tumor. D. Lymph node(s), Axillary, [place], Right, lymphadenectomy: Two lymph nodes, negative for malignancy (0/2). Assessment and Recommendation Assessment / plan: Ms. Harry is a 64 y.o. lady with a history of diabetes, GERD, HLD, PCOS, and seasonal allergies who is being seen by oncology for a new diagnosis of stage IA right breast invasive ductal carcinoma, ER/AL +, HER2/marily negative. Right breast invasive ductal carcinoma, ER/AL positive, HER-2/marily negative, pT1c pN0 Mx, Stage IA: The patient presented for her diagnosis of right breast invasive ductal carcinoma, ER AL positive, HER-2/marily negative. This was found on a routine screening mammogram and she did not have any symptoms prior to this. She had a right breast lumpectomy on 02/27/[address] Gee. The final pathology is as above overall stage I a, hormone positive, HER-2/marily negative. -I sent an Oncotype DX test on her tumor specimen and this returned with a score of 17 which is low. Based on this her absolute benefit of adjuvant chemotherapy would be less than 1%. Also, her risk of recurrence at 9 years with either an AI or tamoxifen is 5%. -Given her low Oncotype DX score, I would not recommend adjuvant chemotherapy in addition to adjuvant endocrine therapy. -She received adjuvant radiation from 05/07/2019 to 06/05/2019. -She was then started on Arimidex 1 mg daily in May 2019. She was initially tolerating this well but in fall 2019 she had increased stiffness in the fingers and pain in her collarbone. -She stopped Arimidex at that time and switched to exemestane. She is tolerating this better with no arthralgias. She denies any significant hot flashes. -She should continue endocrine therapy for at least 5 years, through 05/2024. -Her last bone density scan was from 08/18/2021 and noted normal bone density however she had significant bone density loss compared to her prior scan. She was previously on calcium and vitamin D however this resulted in hypercalcemia and she was instructed to stop. -She elected to proceed with Prolia and started this on 09/09/2021 and tolerated it well. Repeat bone density scan in August 2023., which was normal/improved . The patient canceled her Prolia in February, due to financial constraints with out of pocket of $3000. She will complete her aromatase inhibitor therapy in May. We will re-evaluate following her next Dexa Scan in 2024. -Her last mammogram was on 01/31/2024 and was normal, she is due for follow-up in 1 year. We will follow-up. - She does note some "extra tissue" in her right axilla. This appears to be adipose tissue. I have offered an ultrasound of her axilla now, or in 2 months if this persists. The patient states this has resolved - She will complete her 5 years of hormone therapy in May 2024. We will see the patient in one year for survivorship visit. Joint stiffness: Likely due to Arimidex. She continues on exemestane at this point and is tolerating this well. Will monitor. Diabetes: Per patient history. She will continue to follow with her PCP for this. Last HbA1c was 6.0. She is on metformin for this. Hypertension: Per patient history. She will continue follow-up with her PCP for this. Her blood pressure today is BP: 122/78 She did take her medications. RTC 1 year Education Provided Education/Instructions given to: (x) Patient (_) Spouse (_) Parent (_) Other Barriers to Learning: (x) None (_) Yes (identify):_ Content: (x) Refer to note above (_)Other (identify):_ Evaluation/Outcome: (x) Verbalized understanding (_) Demonstrated understanding NCCN Guidelines Consulted: (x ) Yes ( ) No Recommendations Concordant with Guidelines: ( x ) Yes ( ) No Reason for Non-Concordance: n/a ALEXANDRE Young-ARMANDO documented in this [id number] History of Present illness Narrative* Shannan Cevallos PA-C - 05/01/2024 9:00 AM EDT Images from the original note were not included. DATE OF SERVICE: 05/01/2024 PATIENT NAME: Dahiana Harry : 1960 AGE: 64 y.o. CLINIC NUMBER: [id number] Visit type: Established patient Chief Complaint Patient presents with Annual Exam FERN 10/27/2023 (KB) Subjective HISTORY OF PRESENT ILLNESS: Dahiana Harry is a 64 y.o. who presents to the office for a check up. Patient has not had a full skin exam done in office. Patient has a history of BCC treated with MOhs in 2022. C/o-skin lesion located on the left lower leg x 6 months. Denies itching, bleeding, pain. Admits changes in size, shape, color. Denies previous treatment. Patient has no?h/o of ATN. Patient has no?h/o of AKs. ? Patient has?personal h/o skin cancer. BCC L cheek, BCC R lower leg Patient has no?family h/o melanoma. History of pacemaker/ defibrillator? No History of HIV/ Hep C? No Allergies to Lidocaine, Epinephrine, Latex or Adhesive? No Social History: Born/raised in [place]. Excessive sun exposure: Yes Used tanning beds: Yes Patient does wear SPF. Patient does use additional sun protection measures. Review of Systems Dermatology: as per HPI, otherwise negative There were no vitals filed for this visit. PHYSICAL EXAM: GENERAL APPEARANCE:?alert and oriented x3, well developed and well nourished. PSYCH: appropriate mood and affect DERMATOLOGY: Please see diagram of patient examination (all noted lesions were examined dermoscopically; all measured lesions are pigmented macules with benign nevus patterns, unless otherwise noted) 1. Encounter for skin care (2) Generalized, Left Abdomen (side) - Lower SKIN TYPE: III Educated on signs of skin cancer, skin cancer causes, prevention, and risk of developing skin cancers in the future. Sun protection measures reviewed, recommended monthly self skin exams and annual full skin exam. 2. History of nonmelanoma skin cancer (3) Generalized, Left Buccal Cheek, Right Lower Leg - Anterior No evidence of recurrence on exam today. Educated on signs of skin cancer, skin cancer causes, prevention, and risk of developing skin cancers in the future. Sun protection measures reviewed, recommended monthly self skin exams and annual full skin exam. 3. Solar lentigo (2) Generalized, Right Forearm - Anterior Light brown well-circumscribed macule(s) Educated and reassured, benign finding secondary to sun exposure. Patient educated on the proper use of sunscreen, SPF, and how often to reapply. Recommend use of OTC mineral sun block, like Neutrogena or La-Tiff Posay. Patient advised to look for zinc or titanium as the active ingredient(s). 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 Patient advised to perform self-skin checks and call for follow up appointment if any new or concerning lesions detected. 4. Seborrheic keratosis (2) Generalized, Right Lower Back Ruiz-brown waxy papule(s) and plaque(s) Reassured that this is a benign lesion and does not require any treatment. Educated that if the lesion changes color, becomes larger, bleeds, becomes bothersome or painful then it should be reevaluated. Patient expresses understanding and is agreeable to plan. 5. Multiple benign melanocytic nevi of both upper extremities, both lower extremities, and trunk (2) Chest - Medial (Center), Generalized Scattered uniform ruiz/brown nevoid macules and papules; showing normal patterns with dermoscopy Reassured that this is a benign lesion and does not require any treatment. Educated that if the lesion changes color, becomes larger, bleeds, becomes bothersome or painful then it should be reevaluated. Patient expresses understanding and is agreeable to plan. 6. Hemangioma of skin (2) Generalized, Right Flank Bright red vascular papule(s) Reassured and educated, benign finding. 7. Dermatofibroma (2) Generalized, Right Lower Leg - Anterior Firm hyperpigmented papule(s) This is a benign growth that may occur secondary to trauma or insect bite, although the exact causeor manner of development is unknown. 8. Neoplasm of uncertain behavior of skin (2) Left Ayala 6 mm pink macule Lesion biopsy Type of biopsy: tangential Informed consent: discussed and consent obtained Timeout: patient name, date of , surgical site, and procedure verified Procedure prep: Patient was prepped and draped in usual sterile fashion Prep type: Isopropyl alcohol Anesthesia: the lesion was anesthetized in a standard fashion Anesthetic: 1% lidocaine w/ epinephrine 1-100,000 buffered w/ 8.4% NaHCO3 Instrument used: DermaBlade Hemostasis achieved with: electrodesiccation Outcome: patient tolerated procedure well Post-procedure details: sterile dressing applied and wound care instructions given Dressing type: pressure dressing and bandage Specimen A - Tissue exam Differential Diagnosis: Rule out BCC Check Margins: No Left Lower Lateral Leg 8 mm pink brown macule Lesion biopsy Type of biopsy: tangential Informed consent: discussed and consent obtained Timeout: patient name, date of , surgical site, and procedure verified Procedure prep: Patient was prepped and draped in usual sterile fashion Prep type: Isopropyl alcohol Anesthesia: the lesion was anesthetized in a standard fashion Anesthetic: 1% lidocaine w/ epinephrine 1-100,000 buffered w/ 8.4% NaHCO3 Instrument used: DermaBlade Hemostasis achieved with: electrodesiccation Outcome: patient tolerated procedure well Post-procedure details: sterile dressing applied and wound care instructions given Dressing type: pressure dressing and bandage Specimen B - Tissue exam Differential Diagnosis: Rule out BCC Check Margins: No Biopsy recommended. Patient expresses understanding and is in agreement with the plan. Biopsy (x2) obtained today. Patient educated that we will call with the biopsy results within 2 weeks. Care instructions reviewed and written instructions provided to patient. 9. Actinic keratosis Left Forearm - Posterior Blakely scaly macule(s) Patient educated on actinic keratosis and the possibility of transformation into SCC. Treatment options are discussed with risks and benefits reviewed. Cryotherapy is agreed upon and performed. Reassured that redness, swelling and the formation of a blister at the site of cryotherapy are possible reactions. After care instructions are given and reviewed. Patient to apply Vaseline to treated siteswhile healing. Patient to monitor for resolution. If unresolved after 2-3 months, patient to returnfor further evaluation and management Cryotherapy Actinic Keratosis: Medical Necessity: It was explained to the patient that actinic keratoses are precancerous. Consent: The patient understood all the risks and benefits prior to treatment. The risks explained included scarring, hyper and/or hypopigmentation. Although this treatment is highly effective, recurrences do occur and this was explained to the patient. The patient further understood that these lesions are precancerous and may develop into a malignancy. Method: Liquid nitrogen was used to treat the lesion(s) with two freeze-thaw cycles. Post-op: The patient was instructed to clean the site normally twice a day. Signs of infection werereviewed and patient was instructed to call if he/ she develops increasing pain, purulent drainage,or beefy redness. The patient was informed that a blister may occur at the cryo site and that this is an expected event. Sun protection was reviewed and patient advised to use sunscreen with SPF 30 or greater on exposed skin when outdoors. Post-op instructions were given orally and in writing. Cryotherapy, skin lesion - Left Forearm - Posterior On this date, I have spent 30 minutes reviewing previous notes, test results and face to face with the patient discussing the diagnosis and importance of compliance with the treatment plan as well asdocumenting on the day of the visit. I spent a total of 30 minutes on the day of the visit. [x]Preparing to see the patient [x]Obtaining/reviewing separately obtained history [x]Performing exam/evaluation [x]Counseling patient/family/caregiver [x]Ordering medication/tests/procedures []Referring and communicating with other health professionals [x]Documenting clinical information in the EMR []Independently interpreting results and communicating results to patient/family/caregiver []Care coordination Follow up in about 1 year (around 05/01/2025) for Full Skin Exam. Shannan Cevallos PA-C 05/01/24 8:59 AM REFERRING MD: No referring provider defined for this encounter. documented in this [facility]06-04-2024 Instructions* Patient Instructions* Charu Bacon LPN - 05/01/2024 9:00 AM EDT Protecting Your Skin from the Sun The sun s rays contain ultraviolet (UV) radiation that can damage our skin. There is no safe ultraviolet ray. Even on cloudy days, UV radiation reaches the earth and can cause skin damage. Ultraviolet A (UVA) is primarily responsible for premature aging, wrinkles, and tanning, while ultraviolet B (UVB) causes sunburns. Both types can severely damage the skin and cause skin cancer. Sun exposure is the most preventable risk factor for all skin cancers, including melanoma. You can still have fun in the sun and decrease your risk for skin cancer. Apply water-resistant sunscreen generously with a Sun Protection Factor (SPF) of at least 30 that provides broad-spectrum protection from both ultraviolet A (UVA) and ultraviolet B (UVB) rays to all exposed skin. Re-apply every two hours, even on cloudy days, and after sweating or swimming. Sunscreens are not perfect because some ultraviolet light may still get through sunscreens, so they should not be used as a way of prolonging sun exposure. Seek shade when appropriate, remembering that the sun s rays are the strongest between 10 AM and 4 PM. Wear sun protective clothing such as a long-sleeved shirt, pants, a wide-brimmed hat, and sunglasses, when possible. Some sunlight will get through your clothing. You can wear sunscreen underneath, or you can buy clothing that has been treated to give additional sun protection. Such clothing will have a UPF rating on the label. (e.g., www.Webyog, www.DreamsCloud.ScaleArc) Protect children from sun exposure by having them play in the shade, dressing them in protective clothing, and applying sunscreen. Use extra precaution when near water, snow, and sand. These surfaces reflect the damaging rays of the sun and can increase your chance of sunburn. Get vitamin D safely through a healthy diet that may include vitamin supplements. Don t seek the sun for vitamin D. Avoid tanning beds. Ultraviolet light from the sun and tanning beds can cause wrinkling and skin cancer. If you want to look like you ve been in the sun, consider using a sunless self-tanning product, but continue to use sunscreen with it. Perform a regular self skin exam. If you notice anything changing, growing, or bleeding on your skin, see a service now developer. Skin cancer is very treatable when caught early. Examples of good broad-spectrum sunscreens: Blue Lizard Coppertone Spectra 3 [employer] [place] Block Neutrogena Ultra Sheer Dry Touch [facility] Total Block/Keesha Calixto MD What the active ingredients do: UVB blockers: padimate O homosalate, octyl methoxycinnamate, benzophenone octyl salicylate, phenylbenzimadazole sulfonic acid, octocrylene UVA blockers: oxybenzone, avobenzone (Parsol 1789) Physical blockers: titanium dioxide, zinc oxide (These are chemical-free sunscreens that reflect both UVA and UVB. These may be safest if you are allergic to some sunscreens. These may also be betterfor sensitive skin.) * Attachments The following attachments cannot be sent through Care Everywhere. * Skin Biopsy (Macedonian) documented in this encounterSAdams County [id number] Instructions* Patient Instructions* Shannan Calzada CNP - 11/14/2023 3:34 PM EST Continue Exemestane daily Mammogram 01/31/24 Follow up in 6 months documented in this [id number] History of Present illness Narrative* Shannan Calzada CNP - 11/14/2023 2:56 PM EST Breast Cancer Clinic Note Breast Cancer Clinic Note Date of service: 11/14/2023 Referring Physician: Braden Gee MD PCP: Dereje Trejo MD Diagnosis/chief Complaint: Right breast invasive ductal carcinoma, ER/AL +, HER2/marily negative AJCC stage: pT1c pN0 Mx, Stage IA Date of diagnosis: 01/31/19 Goal of treatment: curative Treatment delivered: Right breast lumpectomy with SLND Reason for visit: R breast invasive ductal carcinoma Interval History: Ms. Harry is here to follow-up while on adjuvant endocrine therapy with exemestane. She seems to be tolerating this well. She denies any new issues. No new medications. She last received Prolia on 09/07/23. As far as complaints, she is having problems with plantar fasciitis. She also feels some "extra tissue" in her right axilla. HPI: Ms. Harry is a 58 year old lady with a history of diabetes, GERD, HLD, PCOS, and seasonal allergies who is being seen by oncology for a new diagnosis of stage IA right breast invasive ductal carcinoma, ER/AL +, HER2/marily negative. The patient states that she was not having any issues prior to the diagnosis. This was found on a routine screening mammogram. She says she had a mammogram last year thatwas normal. She had a mammogram at the end of December which noted a right breast lesion that was concerning for malignancy. Given this they proceeded with a biopsy which confirmed right breast invasive ductal carcinoma, ER AL positive, HER-2/marily negative. She was then referred to see Dr. Gee. They discussed surgical options and the patient elected to proceed with a right breast lumpectomy andsentinel lymph node dissection. She tolerated surgery well and is healing well from her surgery. This was performed in early February. Her final pathology shows a tumor measuring up to 1.9 cm. The sentinel lymph node were negative for malignancy. It was overall grade 1. Her final pathology shows a pT1c pN0 Mx stage I a invasive ductal carcinoma of the right breast, ER/AL positive, HER-2/marily negative. She is healing well from the surgery and she is here today to discuss next steps in her therapy. She denies any family history of breast cancer. No family history of ovarian cancer or endometrial cancer. Reproductive risk factors: Age of menarche at 17 years Age of menopause at 56 years. 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 control pills: yes. Hormone replacement therapy: yes. Caffeine intake yes History of prior breast biopsy no History of prior breast cancer no Family History : Breast cancer no Ovarian Cancer no Endometrial cancer no Family History of breast disease no ROS: General- Denies weakness, fever/chills, weight gain/loss, fatigue, change in appetite, or cold and flu symptoms HEENT: Denies hearing changes or tinnitus, vision changes, sinus pain/tenderness, nasal congestion,epistaxis, gingival bleed, sore throat, or mouth sores Cardiac; Denies CP, palpitations, dizziness, claudication, or QUINN Pulmonary- Denies SOB, wheezing, PND, or cough GI- Denies nausea and vomiting, dysphagia, heartburn, abdominal pain, diarrhea or constipation - Denies urgency, frequency, hematuria or incontinence, complains of burning when urinating Endo- Denies excessive sweating, polyuria, or polydypsia MS - Denies joint stiffness swelling, or decreased ROM, + plantar fasciitis pain, right elbow pain Neuro- Denies loss of consciousness, numbness or tingling Skin- Denies jaundice, rashes, or open lesions Heme- Denies night sweats, signs and symptoms of infection, easily bleeding or bruising Psych- Denies signs and symptoms of depression or suicidal thoughts Past Medical History: Diagnosis Date Breast cancer (HCC) 01/31/2019 Right-Invasive mammary carcinoma Diabetes mellitus (HCC) Diabetes mellitus, type 2 (HCC) GERD (gastroesophageal reflux disease) Hyperlipidemia Hypertension Motion sickness PONV (postoperative nausea and vomiting) Seasonal allergies Trigger finger of right thumb 04/06/2021 Past Surgical History: Procedure Laterality Date APPENDECTOMY BREAST BIOPSY Right 2019 BREAST LUMPECTOMY Right 02/27/2019 BREAST LUMPECTOMY W/ SENTINEL NODE, NEEDLE LOC, POSS AX DIS Right 02/27/2019 Procedure: RIGHT BREAST LUMPECTOMY WITH SENTINEL NODE BIOPSY WITH NEEDLE LOCALIZATION AND POSSIBLE AXILLARY DISSECTION; Surgeon: Braden Gee MD; Location: Main OR; Service: General Surgery SECTION, CLASSIC 1996 CHOLECYSTECTOMY ROBOTIC XI N/A 08/12/2022 Procedure: CHOLECYSTECTOMY ROBOTIC XI; Surgeon: Braden Gee MD; Location: Main OR; Service: Gen-Robotics COLONOSCOPY 05/19/2017 Normal....Dr. Blackmon D & C WITH LEE 1994 EXPLORATORY LAPAROTOMY for infertility MM WIRE NEEDLE LOCALIZATION RIGHT Right 02/27/2019 MM NEEDLE LOCALIZATION RIGHT 02/27/2019 MAMMOGRAPHY RADIATION Right 04/2019 trigger finger surg Right 05/2021 at [facility] US BREAST BIOPSY RIGHT Right 01/31/2019 US BREAST BIOPSY RIGHT 01/31/2019, invasive mammary carcinoma US BREAST BIOPSY RIGHT Right 02/06/2019 US BREAST BIOPSY RIGHT Family History Problem Relation Age of Onset COPD Father Pancreatic cancer Paternal Grandmother Heart attack Paternal Grandfather Pancreatic cancer Maternal Uncle Lung cancer Paternal Aunt Social History Socioeconomic History Marital status: Tobacco Use Smoking status: Never Smokeless tobacco: Never Vaping Use Vaping Use: Never used Substance and Sexual Activity Alcohol use: Not Currently Comment: rarely Drug use: No Sexual activity: Yes Partners: Male control/protection: Post-menopausal Social Determinants of Health Financial Resource Strain: Low Risk (09/23/2022) Overall Financial Resource Strain (CARDIA) Difficulty of Paying Living Expenses: Not hard at all Food Insecurity: No Food Insecurity (09/23/2022) Hunger Vital Sign Worried About Running Out of Food in the Last Year: Never true Ran Out of Food in the Last Year: Never true Transportation Needs: No Transportation Needs (09/23/2022) PRAPARE - Transportation Lack of Transportation (Medical): No Lack of Transportation (Non-Medical): No Physical Activity: Insufficiently Active (09/23/2022) Exercise Vital Sign Days of Exercise per Week: 4 days Minutes of Exercise per Session: 20 min Stress: No Stress Concern Present (09/23/2022) [place] [employer] - Occupational Stress Questionnaire Feeling of Stress : Only a little Social Connections: Socially Integrated (09/23/2022) Social Connection and Isolation Panel [NHANES] Frequency of Communication with Friends and Family: Three times a week Frequency of Social Gatherings with Friends and Family: Three times a week Attends Confucianist Services: More than 4 times per year Active Member of Clubs or Organizations: No Attends Club or Organization Meetings: 1 to 4 times per year Marital Status: Housing Stability: Unknown (09/23/2022) Housing Stability Vital Sign Unable to Pay for Housing in the Last Year: No Unstable Housing in the Last Year: No Allergies Allergen Reactions Penicillins Swelling Strong family history of penicillin allergy. Current Outpatient Medications: atorvastatin (LIPITOR) 40 MG tablet, Take 1 (one) tablet (40 mg total) by mouth daily ., Disp: 90 tablet, Rfl: 3 exemestane (AROMASIN) 25 mg tablet, Take 1 (one) tablet (25 mg total) by mouth every morning ., Disp: 90 tablet, Rfl: 3 famotidine (PEPCID) 20 MG tablet, Take 1 (one) tablet (20 mg total) by mouth 2 (two) times a day .,Disp: 180 tablet, Rfl: 3 lisinopriL (PRINIVIL,ZESTRIL) 10 MG tablet, Take 1 (one) tablet (10 mg total) by mouth at bedtime ., Disp: 90 tablet, Rfl: 3 metFORMIN (Glucophage XR) 500 MG 24 hr tablet, Take 1 (one) tablet (500 mg total) by mouth 2 (two) times a day with breakfast and lunch . (Patient taking differently: Take 1 (one) tablet (500 mg total) by mouth daily with breakfast .), Disp: 90 tablet, Rfl: 1 meloxicam (MOBIC) 15 MG tablet, Take 1 (one) tablet (15 mg total) by mouth daily . (Patient not taking: Reported on 11/14/2023 .), Disp: 30 tablet, Rfl: 1 Physical exam: ECOG PS: 0 PACU Vitals 11/14/23 1504 BP: 125/81 Pulse: 70 Temp: 98.3 F (36.8 C) SpO2: 97% General: well-appearing, no acute distress HEENT: NCAT, sclera anicteric, moist mm, o/p clear , no oral mucosal lesions Neck: supple, no supraclavicular adenopathy Lymph: no cervical, supraclavicular, or axillary LAD Chest: CTAB, no w/r/r, no respiratory distress CV: RRR, no S3 S4 gallops or murmurs Abd: soft, NT/ND, no HSM or masses, + BS Extrem: wwp, no c/c/e Skin: Slight yellow discoloration of the right breast no rashes or lesions Neuro: alert, oriented, CN intact, speech fluent, strength full and symmetric Breast: Right breast with 3 cm horizontal incision that is located about 2 cm above the nipple, well-healed, no erythema or drainage. No masses palpated in right breast. No axillary adenopathy appreciated. Right axilla with what appears to be adipose tissue noted. Left breast with no masses palpated or skin changes or nipple discharge. No axillary adenopathy. Psych: Mood normal, Affect normal Labs: Lab Results Component Value Date WBC 4.32 (L) 08/05/2022 HGB 13.6 08/05/2022 HCT 37.8 08/05/2022 MCV 90.0 08/05/2022 PLT 160 08/05/2022 RBC 4.20 08/05/2022 Lab Results Component Value Date GLUCOSE 140 (H) 09/27/2023 CALCIUM 9.3 09/27/2023 NA 140 09/27/2023 K 4.3 09/27/2023 CL 110 (H) 09/27/2023 BUN 12 09/27/2023 CREATININE 0.88 09/27/2023 Lab Results Component Value Date ALT 30 09/27/2023 AST 18 09/27/2023 ALKPHOS 51 09/27/2023 BILITOT 0.8 09/27/2023 Imaging: DEXA Scan 09/01/2023 Normal bone density Screening mammogram 01/27/2023 Heterogeneously dense fibroglandular tissue is present. There are no suspicious dominant masses or suspicious-appearing clusters of calcification. A linear scar marker is placed on the superior rightbreast. Surgical and/or radiation therapy changes persist here without suspicious change. IMPRESSION: Unchanged mammogram with no radiographic evidence of malignancy. BI-RADS:BIRADS - CATEGORY 2 Benign, no evidence of malignancy. Normal interval follow-up is recommended in 12 months. OVERALL ASSESSMENT - BENIGN DEXA Scan 08/18/2021 Normal bone density. Interval bone loss compared to 2019. Screening mammogram 01/22/2021: Expected post-treatment changes in the right breast. No mammographic evidence for malignancy in either breast. BIRADS: Category 2 - Benign, no evidence of malignancy. Normal interval follow-up is recommended in 12 months. OVERALL ASSESSMENT - BENIGN Mammogram 01/22/20: No mammographic or sonographic evidence of malignancy. BIRADS - CATEGORY 2 Benign, no evidence of malignancy. Normal interval follow-up is recommended in 12 months. DEXA 08/17/19: Normal Mammogram 01/24/19: 1. Suspicious mass within the right breast at 12:00 5 cm from the nipple. 2. Benign complicated appearing cyst within the left breast at 10:00 4 cm from the nipple. OVERALL BIRADS: 4C-HIGH SUSPICION FOR MALIGNANCY-BIOPSY IS RECOMMENDED. RECOMMENDATION: 1: Ultrasound-guided biopsy of the right breast is recommended. Pathology: Right breast Lumpectomy 02/27/19: Histologic type: Invasive ductal carcinoma, not otherwise specified Histologic ([place]) grade: Glandular/Tubular differentiation: Score 3 Nuclear pleomorphism: Score 1 Mitotic rate: Score 1 Overall grade: Grade 1 (scores of 3, 4, or 5) Margins: Invasive carcinoma margins: Uninvolved by invasive carcinoma Distance from closest margin: Inferior margin, 2 mm DCIS margins: Uninvolved by DCIS Distance from closest margin: Inferior margin, 6 mm Pathologic Stage (AJCC 8th Ed.): pT1c pN0(sn) Procedure: Partial mastectomy Specimen laterality: Right Tumor site: 12 o'clock Tumor size: 1.9 cm Tumor focality: Single focus of invasive carcinoma Ductal carcinoma in-situ (DCIS): Present Tumor extension: Skin: Skin is not present Nipple: Nipple is not present Skeletal muscle: No skeletal muscle is present Regional lymph nodes: Uninvolved by tumor cells Number of lymph nodes examined: 4 Number of sentinel lymph nodes examined: 4 Treatment effect: No known presurgical therapy Lymphovascular invasion: Not identified Dermal lymphovascular invasion: No skin present Additional pathologic findings: None Ancillary studies: (performed on prior biopsy [id number]) ER: Positive ( 100%, 3+ intensity, resulted by image analysis) AL: Positive ( 100%, 3+ intensity, resulted by image analysis) HER2: Negative (0, resulted by image analysis) A. Lymph node(s), Axillary, [place], Right, lymphadenectomy: One lymph node, negative for malignancy (0/1). B. Lymph node(s), Axillary, [place], Right, lymphadenectomy: One lymph node, negative for malignancy (0/1). C. Breast, Right, lumpectomy: 1. Invasive ductal carcinoma. See synoptic report. 2. The margins of excision are uninvolved by tumor. D. Lymph node(s), Axillary, [place], Right, lymphadenectomy: Two lymph nodes, negative for malignancy (0/2). Assessment and Recommendation Assessment / plan: Ms. Harry is a 63 y.o. lady with a history of diabetes, GERD, HLD, PCOS, and seasonal allergies who is being seen by oncology for a new diagnosis of stage IA right breast invasive ductal carcinoma, ER/AL +, HER2/marily negative. Right breast invasive ductal carcinoma, ER/AL positive, HER-2/marily negative, pT1c pN0 Mx, Stage IA: The patient presented for her diagnosis of right breast invasive ductal carcinoma, ER AL positive, HER-2/marily negative. This was found on a routine screening mammogram and she did not have any symptoms prior to this. She had a right breast lumpectomy on 02/27/[address] Gee. The final pathology is as above overall stage I a, hormone positive, HER-2/marily negative. -I sent an Oncotype DX test on her tumor specimen and this returned with a score of 17 which is low. Based on this her absolute benefit of adjuvant chemotherapy would be less than 1%. Also, her risk of recurrence at 9 years with either an AI or tamoxifen is 5%. -Given her low Oncotype DX score, I would not recommend adjuvant chemotherapy in addition to adjuvant endocrine therapy. -She received adjuvant radiation from 05/07/2019 to 06/05/2019. -She was then started on Arimidex 1 mg daily in May 2019. She was initially tolerating this well but in fall 2019 she had increased stiffness in the fingers and pain in her collarbone. -She stopped Arimidex at that time and switched to exemestane. She is tolerating this better with no arthralgias. She denies any significant hot flashes. -She should continue endocrine therapy for at least 5 years, through 05/2024. -Her last bone density scan was from 08/18/2021 and noted normal bone density however she had significant bone density loss compared to her prior scan. She was previously on calcium and vitamin D however this resulted in hypercalcemia and she was instructed to stop. -She elected to proceed with Prolia and started this on 09/09/2021 and tolerated it well. Repeat bone density scan in August 2023., which was normal/improved -Her last mammogram was on 01/27/2023 and was normal, she is due for follow-up in 1 year, and this isscheduled for 01/31/2024. We will follow-up. - She does note some "extra tissue" in her right axilla. This appears to be adipose tissue. I have offered an ultrasound of her axilla now, or in 2 months if this persists. - Follow up in 6 months. She will complete her 5 years of hormone therapy in May 2024 Joint stiffness: Likely due to Arimidex. She continues on exemestane at this point and is tolerating this well. Will monitor. Diabetes: Per patient history. She will continue to follow with her PCP for this. Last HbA1c was 6.0. She is on metformin for this. Hypertension: Per patient history. She will continue follow-up with her PCP for this. Her blood pressure today is 125/81. She did take her medications. RTC 1 year Education Provided Education/Instructions given to: (x) Patient (_) Spouse (_) Parent (_) Other Barriers to Learning: (x) None (_) Yes (identify):_ Content: (x) Refer to note above (_)Other (identify):_ Evaluation/Outcome: (x) Verbalized understanding (_) Demonstrated understanding NCCN Guidelines Consulted: (x ) Yes ( ) No Recommendations Concordant with Guidelines: ( x ) Yes ( ) No Reason for Non-Concordance: n/a ALEXANDRE Young- documented in this [id number] NoteReferral, lab report and office notes rt faxed to Talbot at [facility] 11-14-2023 Telephone encounter Note* Telephone Encounter - Shaquille Marie LPN - 11/14/2023 10:58 AM EST Referral, lab report and office notes [id number] Miscellaneous Notes* Telephone Encounter - Shaquille Marie LPN - 11/14/2023 10:58 AM EST Referral, lab report and office notes rt faxed to Talbot at * Telephone Encounter - Luna Gustafson MA - 11/10/2023 2:17 PM EST Patient returned call and wants referred to Dr. Flores. Placed Referral and will fax it to the office. * Telephone Encounter - Luna Gustafson MA - 11/10/2023 2:17 PM EST ----- Message from Shannan Cevallos PA-C sent at 11/09/2023 4:48 PM EST ----- Please call patient and notify her that the skin biopsy on her chest is benign and no further treatment is needed but the biopsy done on the right lower leg is a treatable type of skin cancer called basal cell carcinoma. Her daughter Quita is in [employer] school and did a rotation with us last month. Please let her know that this area on her right lower leg does need additional treatment. This is a tricky area because theres it takes much longer to heal. This is just because we're on our feet and gravity pulls fluid causing swelling and delayed healing. There are a couple treatment options that she can choose from and are listed as follows: -Imiquimod, topical chemotherapy cream that is applied to the area every night for 4-6 weeks. Then follow up for evaluation. This option will minimize scarring. She has a full skin exam on the 21 of December so we could check it at that visit. -surgical excision-we would send a referral to Dr. Flores-this is likely to leave a biger scar but excised tissue is sent to pathology to be sure margins are clear. Can take quite a bit of time to heal and will leave a larger scar. Let her know these options then let me know which she decides. documented in this [facility]12-14-2023 NotePatient returned call and wants referred to Dr. Flores. Placed Referral and will fax it to the office.[facility]12-14-2023 Telephone encounter Note* Telephone Encounter - Luna Gustafson MA - 11/10/2023 2:17 PM EST Patient returned call and wants referred to Dr. Flores. Placed Referral and will fax it to the office. [id number] Telephone encounter Note* Telephone Encounter - Luna Gustafson MA - 11/10/2023 2:17 PM EST ----- Message from Shannan Cevallos PA-C sent at 11/09/2023 4:48 PM EST ----- Please call patient and notify her that the skin biopsy on her chest is benign and no further treatment is needed but the biopsy done on the right lower leg is a treatable type of skin cancer called basal cell carcinoma. Her daughter Quita is in [place] school and did a rotation with us last month. Please let her know that this area on her right lower leg does need additional treatment. This is a tricky area because theres it takes much longer to heal. This is just because we're on our feet and gravity pulls fluid causing swelling and delayed healing. There are a couple treatment options that she can choose from and are listed as follows: -Imiquimod, topical chemotherapy cream that is applied to the area every night for 4-6 weeks. Then follow up for evaluation. This option will minimize scarring. She has a full skin exam on the 21 of December so we could check it at that visit. -surgical excision-we would send a referral to Dr. Flores-this is likely to leave a biger scar but excised tissue is sent to pathology to be sure margins are clear. Can take quite a bit of time to heal and will leave a larger scar. Let her know these options then let me know which she decides. [facility] [id number] NoteSending Referral to [facility] 11-10-2023 Telephone encounter Note* Telephone Encounter - Luna Gustafson MA - 11/10/2023 2:16 PM EST [id number] Miscellaneous Notes* Telephone Encounter - Luna Gustafson MA - 11/10/2023 2:16 PM EST Sending Referral to Sandra * Telephone Encounter - Milly White - 11/10/2023 2:12 PM EST Pt returning call for results and to schedule removal * Telephone Encounter - Luna Gustafson MA - 11/10/2023 8:51 AM EST Called patient back, left message on machine. * Telephone Encounter - Milly White - 11/10/2023 8:47 AM EST LMOVM returning call for biopsy results. * Telephone Encounter - Luna Gustafson MA - 11/10/2023 7:29 AM EST ----- Message from Shannan Cevallos PA-C sent at 11/09/2023 4:48 PM EST ----- Please call patient and notify her that the skin biopsy on her chest is benign and no further treatment is needed but the biopsy done on the right lower leg is a treatable type of skin cancer called basal cell carcinoma. Her daughter Quita is in [place] school and did a rotation with us last month. Please let her know that this area on her right lower leg does need additional treatment. This is a tricky area because theres it takes much longer to heal. This is just because we're on our feet and gravity pulls fluid causing swelling and delayed healing. There are a couple treatment options that she can choose from and are listed as follows: -Imiquimod, topical chemotherapy cream that is applied to the area every night for 4-6 weeks. Then follow up for evaluation. This option will minimize scarring. She has a full skin exam on the 21 of December so we could check it at that visit. -surgical excision-we would send a referral to Dr. Flores-this is likely to leave a biger scar but excised tissue is sent to pathology to be sure margins are clear. Can take quite a bit of time to heal and will leave a larger scar. Let her know these options then let me know which she decides. documented in this encounterSAd[facility] [id number] Telephone encounter Note* Telephone Encounter - Milly White - 11/10/2023 2:12 PM EST Pt returning call for results and to schedule removal [facility] [id number] NoteResult Communication Resulted Orders Tissue exam Result Value Ref Range Case Report Surgical Pathology Case: [id number] Authorizing Provider: Shannan Cevallos PA-C Collected: 10/27/2023 1100 Ordering Location: [facility] Received: 10/28/2023 1047 Dermatology Pathologist: Pankaj Newton MD Specimens: A) - DERM, Skin, Chest - Medial (Center) B) - DERM, Skin, Right Lower Leg - Anterior Final Diagnosis A. Skin, chest medial (center): Seborrheic keratosis B. Skin, right lower leg-anterior: Focally pigmented superficial basal cell carcinoma Clinical Information Neoplasm of uncertain behavior of skin - D48.5 [ICD-10-CM] A) SK vs ATN B) Pigmented BCC vs MM Gross Description A. Received in formalin labeled "chest medial (center)" is a skin shave biopsy specimen which measures 0.6 x 0.4 cm. The skin surface is lightly pigmented and remarkable for a 0.2 x 0.2 cm hyperpigmented area. The specimen is bisected and entirely submitted in one cassette. B. Received in formalin labeled "right lower leg - anterior" is a skin shave biopsy specimen which measures 1 x 1 cm. The skin surface is lightly pigmented and remarkable for a variegated area of hypopigmentation and hyperpigmentation which measures 0.6 x 0.6 cm. The specimen is sectioned and entirely submitted in one cassette. Disclaimer Disclaimer: The following statement applies to all immunohistochemistry, in situ hybridization, molecular studies, and immunofluorescence testing, if performed on this case. The use of one or more reagents in the above tests is regulated as an analyte specific reagent (ASR). These tests were developed and their performance characteristics determined by the clinical laboratories of [facility]. They have not been cleared by the US Food and Drug Administration (FDA). The FDA has determined that such clearance or approval is not necessary. All immunostains were performed on paraffin embedded tissue. Appropriate positive and negative controls (where applicable) were run in parallel with the patient's specimen; these controls showed expected staining pattern, with acceptable intensity of staining. Immunohistochemical assays have not been validated on decalcified tissues. Results should be interpreted with caution given the raised possibility of false negativity on decalcified specimens. 9:01 AM Results were successfully communicated with the patient and they acknowledged their understanding. Patient states she is going to talk to her daughter and call us back with what she would like to do.[facility]12-14-2023 Telephone encounter Note * Telephone Encounter - Luna Gustafson MA - 11/10/2023 8:51 AM EST Called patient back, left message on machine. [facility] [id number] Telephone encounter Note* Telephone Encounter - Milly White - 11/10/2023 8:47 AM EST LMOVM returning call for biopsy results. [facility] [id number] Telephone encounter Note* Telephone Encounter - Luna Gustafson MA - 11/10/2023 7:29 AM EST ----- Message from Shannan Cevallos PA-C sent at 11/09/2023 4:48 PM EST ----- Please call patient and notify her that the skin biopsy on her chest is benign and no further treatment is needed but the biopsy done on the right lower leg is a treatable type of skin cancer called basal cell carcinoma. Her daughter Quita is in [employer] school and did a rotation with us last month. Please let her know that this area on her right lower leg does need additional treatment. This is a tricky area because theres it takes much longer to heal. This is just because we're on our feet and gravity pulls fluid causing swelling and delayed healing. There are a couple treatment options that she can choose from and are listed as follows: -Imiquimod, topical chemotherapy cream that is applied to the area every night for 4-6 weeks. Then follow up for evaluation. This option will minimize scarring. She has a full skin exam on the 21 of December so we could check it at that visit. -surgical excision-we would send a referral to Dr. Flores-this is likely to leave a biger scar but excised tissue is sent to pathology to be sure margins are clear. Can take quite a bit of time to heal and will leave a larger scar. Let her know these options then let me know which she decides. [facility] [id number] History of Present illness Narrative* SHERIDAN Hall - 10/27/2023 10:40 AM EST Images from the original note were not included. DATE OF SERVICE: 10/27/2023 PATIENT NAME: Dahiana Harry : 1960 AGE: 63 y.o. 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 female who presents for evaluation of spots of concern. Pt has been to Derm in the past. Pt h/o Breast cancer. Pt h/o BCC L cheek x 5 plus yrs. No f/h Melanoma. Spot under L eye x 2 yrs. Blakely in color and dry at times. Not itchy, tender or bothersome. Spot on R presybeterian x yrs. Pt states she was told this was an age spot but it is itchy at times. Spot on the chest x 1 year. Pt states the lesion is darker. No change in size or color. Not itchy, tender or bothersome. Spot on L forearm x couple yrs. Blakely in color and dry at times. Not itchy, tender or bothersome. Spots on R leg x over 5 yrs. No change in size or color. Not itchy, tender or bothersome. History of pacemaker/ defibrillator? No History of HIV/ Hep C? No Allergies to Lidocaine, Epinephrine, Latex or Adhesive? No Social History: Born/raised in [place]. Excessive sun exposure: Yes Used tanning beds: Yes Patient does wear SPF. Patient does use additional sun protection measures. REVIEW OF SYSTEMS: General/Constitutional Feels well; denies h/o fatigue, weight change, night sweats, fevers or chills. Lymphatic Denies swollen lymph nodes. Dermatologic As per HPI; otherwise negative There were no vitals filed for this visit. GENERAL APPEARANCE:?Alert & oriented x3, pleasant. Well developed, well nourished. PSYCH: appropriate mood and affect DERMATOLOGY: 1. Neoplasm of uncertain behavior of skin (2) Chest - Medial (Center) Skin Biopsy Type of biopsy: tangential Informed consent: discussed and consent obtained Timeout: patient name, date of , surgical site, and procedure verified Anesthesia: the lesion was anesthetized in a standard fashion Anesthetic: 1% lidocaine w/ epinephrine 1-100,000 buffered w/ 8.4% NaHCO3 Instrument used: DermaBlade Hemostasis achieved with: electrodesiccation Outcome: patient tolerated procedure well Post-procedure details: wound care instructions given Specimen A - Tissue exam Differential Diagnosis: SK vs ATN Check Margins: No Right Lower Leg - Anterior Skin Biopsy Type of biopsy: tangential Informed consent: discussed and consent obtained Timeout: patient name, date of , surgical site, and procedure verified Anesthesia: the lesion was anesthetized in a standard fashion Anesthetic: 1% lidocaine w/ epinephrine 1-100,000 buffered w/ 8.4% NaHCO3 Instrument used: DermaBlade Hemostasis achieved with: electrodesiccation Outcome: patient tolerated procedure well Post-procedure details: wound care instructions given Specimen B - Tissue exam Differential Diagnosis: Pigmented BCC vs MM Check Margins: No Biopsy recommended. Patient expresses understanding and is in agreement with the plan. Biopsy (x2) obtained today. Patient educated that we will call with the biopsy results within 2 weeks. Care instructions reviewed and written instructions provided to patient. 2. Actinic keratoses (2) Left Forearm - Posterior, Left Malar Cheek Blakely scaly macule(s) Patient educated on actinic keratosis and the possibility of transformation into SCC. Treatment options are discussed with risks and benefits reviewed. Cryotherapy is agreed upon and performed. Reassured that redness, swelling and the formation of a blister at the site of cryotherapy are possible reactions. After care instructions are given and reviewed. Patient to apply Vaseline to treated siteswhile healing. Patient to monitor for resolution. If unresolved after 2-3 months, patient to returnfor further evaluation and management Cryotherapy Actinic Keratosis: Medical Necessity: It was explained to the patient that actinic keratoses are precancerous. Consent: The patient understood all the risks and benefits prior to treatment. The risks explained included scarring, hyper and/or hypopigmentation. Although this treatment is highly effective, recurrences do occur and this was explained to the patient. The patient further understood that these lesions are precancerous and may develop into a malignancy. Method: Liquid nitrogen was used to treat the lesion(s) with two freeze-thaw cycles. Site: 2=L forearm-Posterior x1, L malar cheek x1 Post-op: The patient was instructed to clean the site normally twice a day. Signs of infection werereviewed and patient was instructed to call if he/ she develops increasing pain, purulent drainage,or beefy redness. The patient was informed that a blister may occur at the cryo site and that this is an expected event. Sun protection was reviewed and patient advised to use sunscreen with SPF 30 or greater on exposed skin when outdoors. Post-op instructions were given orally and in writing. Cryotherapy, skin lesion - Left Forearm - Posterior, Left Malar Cheek 3. Multiple benign nevi Scattered uniform brown macules No treatment is needed for the benign appearing and asymptomatic lesions described above. The ABCDE(Asymmetry, Border, Color, Diameter, Evolution/Change) criteria used to evaluate pigmented lesions were reviewed with the patient. Patient educated on the proper use of sunscreen, SPF 30 or greater, and how often to reapply. 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 Patient advised to perform self-skin checks and call for follow up appointment if any new or concerning lesions detected. 4. Solar lentigo Light brown well-circumscribed macule(s) Educated and reassured, benign finding secondary to sun exposure. Patient educated on the proper use of sunscreen, SPF, and how often to reapply. Recommend use of OTC mineral sun block, like Neutrogena or La-Tiff Posay. Patient advised to look for zinc or titanium as the active ingredient(s). 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 Patient advised to perform self-skin checks and call for follow up appointment if any new or concerning lesions detected. 5. Seborrheic keratosis (2) Generalized, Right Temporal Scalp Ruiz-brown waxy papule(s) and plaque(s) Reassured that this is a benign lesion and does not require any treatment. Educated that if the lesion changes color, becomes larger, bleeds, becomes bothersome or painful then it should be reevaluated. Patient expresses understanding and is agreeable to plan. 6. History of nonmelanoma skin cancer Left Malar Cheek No evidence of recurrence on exam today. Educated on signs of skin cancer, skin cancer causes, prevention, and risk of developing skin cancers in the future. Sun protection measures reviewed, recommended monthly self skin exams and annual full skin exam. On this date, I have spent 30 minutes reviewing previous notes, test results and face to face with the patient discussing the diagnosis and importance of compliance with the treatment plan as well asdocumenting on the day of the visit. I spent a total of 30 minutes on the day of the visit. [x]Preparing to see the patient [x]Obtaining/reviewing separately obtained history [x]Performing exam/evaluation [x]Counseling patient/family/caregiver [x]Ordering medication/tests/procedures []Referring and communicating with other health professionals [x]Documenting clinical information in the EMR []Independently interpreting results and communicating results to patient/family/caregiver []Care coordination Follow up for FSE w/PA. Shannan Cevallos PA-C 10/28/23 10:31 AM REFERRING MD: documented in this [facility]11-30-2023 Instructions* Patient Instructions* Sarina Askew MA - 10/27/2023 10:40 AM EST BIOPSY / SURGICAL AFTERCARE 1. If a dressing is in place, please leave it for 24 hours unless given other instructions. 2. After that time, remove the initial bandage, and cleanse the area with a mild, fragrance free soap such as Dove, Cetaphil, or CeraVe. 3. Apply Vaseline to the area and cover with a new bandage. Please do not use Neosporin, Polysporin, or Bacitracin, as these may cause unwanted allergic reactions in some patients, and are not necessary for good healing. 4. Repeat the above steps every day for 7 days unless otherwise directed by physician or nurse. 5. If any bleeding occurs, use a clean cotton or gauze, apply firm, direct pressure to the area for10 to 15 minutes. If the bleeding does not stop, call our office at [phone]. 6. The wound should improve daily. If you notice any increased redness, swelling, drainage, warmth,or pain in the area, please notify our office. Please be advised that it can take up to 2 weeks for these sites to heal. In some patients it may take even longer depending on location (lower legs / feet) and / or if the patient has history of diabetes. Our office will notify you of the results in about 2 weeks. documented in this [facility]11-06-2023 Evaluation + Plan note* Assessment & Plan Note - Elo Ogden MD - 10/03/2023 3:17 PM ESTAssociated Problem(s): Plantar fasciitis Worsening slightly , encouraged to try NSAID with meloxicam before looking into steroid shots in that area Following up with her chiropractor [id number] Miscellaneous Notes* Assessment & Plan Note - Elo Ogden MD - 10/03/2023 3:17 PM ESTAssociated Problem(s): Plantar fasciitis Worsening slightly , encouraged to try NSAID with meloxicam before looking into steroid shots in that area Following up with her chiropractor * Assessment & Plan Note - Elo Ogden MD - 10/03/2023 3:16 PM ESTAssociated Problem(s): Healthcare maintenance Patient is up-to-date on mammogram screening as well as Pap smear both done this year. Diabetes care: Has had her eye exam updated with [facility] this year as well as foot exam done today. Up-to-date on immunizations, encouraged to take her biValent booster COVID- vaccine wants to stay with Moderna we will check with her local pharmacy. Pap smear : normal in 2019 , repeat today * Assessment & Plan Note - Elo Ogden MD - 10/03/2023 3:15 PM ESTAssociated Problem(s): Invasive ductal carcinoma of breast, female, right (HCC) Diagnosed in 2018, stage IA right breast invasive ductal carcinoma, ER/AL +, HER2/marily negative. right breast lumpectomy and sentinel lymph node dissection. Exemestane and Prolia for suspicion of decreased bone density on current hormonal therapy on exemestane. dexa scan 2022 normal and responding to current therapy Encouraged to talk to about Prolia potential SE of body aches happening on the second month of the injection * Assessment & Plan Note - Elo Ogden MD - 10/03/2023 2:54 PM ESTAssociated Problem(s): Type 2 diabetes mellitus without complication, without long-term current useof insulin (HCC) Last A1c was 6.0% on 09/26/2023 Compliant on metformin 500 mg daily. With vacation time consider taking Metformin twice daily. Discontinued Ozempic with concerns of choledocholithiasis and no increased weight loss. Encouraged her to take Lipitor 40 mg every night instead of every other day, reassured patient about long-term effects of statins. Labs discussed -Foot exam done September 18 and normal. -Ophthalmology check this year normal. No retinopathy concerns. PCV 20 given today mg, LDL at goal documented in this [id number] Evaluation + Plan note* Assessment & Plan Note - Elo Ogden MD - 10/03/2023 3:16 PM ESTAssociated Problem(s): Healthcare maintenance Patient is up-to-date on mammogram screening as well as Pap smear both done this year. Diabetes care: Has had her eye exam updated with [facility] this year as well as foot exam done today. Up-to-date on immunizations, encouraged to take her biValent booster COVID- vaccine wants to stay with Moderna we will check with her local pharmacy. Pap smear : normal in 2019 , repeat today [id number] Evaluation + Plan note* Assessment & Plan Note - Elo Ogden MD - 10/03/2023 3:15 PM ESTAssociated Problem(s): Invasive ductal carcinoma of breast, female, right (HCC) Diagnosed in 2019, stage IA right breast invasive ductal carcinoma, ER/AL +, HER2/marily negative. right breast lumpectomy and sentinel lymph node dissection. Exemestane and Prolia for suspicion of decreased bone density on current hormonal therapy on exemestane. dexa scan 2022 normal and responding to current therapy Encouraged to talk to about Prolia potential SE of body aches happening on the second month of the injection [id number] Evaluation + Plan note* Assessment & Plan Note - Elo Ogden MD - 10/03/2023 2:54 PM ESTAssociated Problem(s): Type 2 diabetes mellitus without complication, without long-term current useof insulin (HCC) Last A1c was 6.0% on 09/26/2023 Compliant on metformin 500 mg daily. With vacation time consider taking Metformin twice daily. Discontinued Ozempic with concerns of choledocholithiasis and no increased weight loss. Encouraged her to take Lipitor 40 mg every night instead of every other day, reassured patient about long-term effects of statins. Labs discussed -Foot exam done September 18 and normal. -Ophthalmology check this year normal. No retinopathy concerns. PCV 20 given today mg, LDL at goal [id number] History of Present illness Narrative* Elo Ogden MD - 10/03/2023 2:46 PM EST Chief Complaint Patient presents with Annual Exam Pap HPI: Lyn Harry is a 63 y.o. lady with a history of diabetes, GERD, HLD, PCOS, and seasonal allergies and right breast carcinoma. Former patient of . Hypertension: 11 yrs chronic, has not been checking her blood pressure recently at home. Has lisinopril 5 mg thatshe takes at bedtime. Denies any headaches, blurry vision, tingling/numbness in extremities Has been recently dealing with plantar fasciitis in her right ankle which has been bothering her and following up with chiropractor and fearing she needs to take a steroid shot . Has not tried meloxicam. DM: 10 yrs or so, she has been cutting back on the pop drinks. Compliant on metformin 500 mg BID , tookOzempic and gave her a lot of nausea and vomiting, was stopped for previous history of choledocholithiasis. Has been trying to lose weight to help with her diabetes control and hopefully taken off metformin. 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 Certain movements and weights bother her more. Past Medical History: Diagnosis Date Breast cancer ([facility]) 01/31/2019 Right-Invasive mammary carcinoma Diabetes mellitus (HCC) Diabetes mellitus, type 2 (HCC) GERD (gastroesophageal reflux disease) Hyperlipidemia Hypertension Motion sickness PONV (postoperative nausea and vomiting) Seasonal allergies Trigger finger of right thumb 04/06/2021 Past Surgical History: Procedure Laterality Date APPENDECTOMY BREAST BIOPSY Right 2019 BREAST LUMPECTOMY Right 02/27/2019 BREAST LUMPECTOMY W/ SENTINEL NODE, NEEDLE LOC, POSS AX DIS Right 02/27/2019 Procedure: RIGHT BREAST LUMPECTOMY WITH SENTINEL NODE BIOPSY WITH NEEDLE LOCALIZATION AND POSSIBLE AXILLARY DISSECTION; Surgeon: Braden Gee MD; Location: Main OR; Service: General Surgery SECTION, CLASSIC 1996 CHOLECYSTECTOMY ROBOTIC XI N/A 08/12/2022 Procedure: CHOLECYSTECTOMY ROBOTIC XI; Surgeon: Braden Gee MD; Location: Main OR; Service: Gen-Robotics COLONOSCOPY 05/19/2017 Normal....Dr. Blackmon D & C WITH [place] 1994 EXPLORATORY LAPAROTOMY for infertility MM WIRE NEEDLE LOCALIZATION RIGHT Right 02/27/2019 MM NEEDLE LOCALIZATION RIGHT 02/27/2019 MAMMOGRAPHY RADIATION Right 04/2019 trigger finger surg Right 05/2021 at [facility] BREAST BIOPSY RIGHT Right 01/31/2019 US BREAST BIOPSY RIGHT 01/31/2019, invasive mammary carcinoma US BREAST BIOPSY RIGHT Right 02/06/2019 US BREAST BIOPSY RIGHT Family History Problem Relation Age of Onset COPD Father Pancreatic cancer Paternal Grandmother Heart attack Paternal Grandfather Pancreatic cancer Maternal Uncle Lung cancer Paternal Aunt Social History Tobacco Use Smoking status: Never Smokeless tobacco: Never Vaping Use Vaping Use: Never used Substance Use Topics Alcohol use: Not Currently Comment: rarely Drug use: No Review of Systems Vitals: 10/03/23 1435 BP: 119/79 BP Location: Right arm Patient Position: Sitting BP Cuff Size: X-large Adult Pulse: 75 Resp: 16 Temp: 98.7 F (37.1 C) TempSrc: Temporal SpO2: 97% Weight: 85.3 kg (188 lb) Height: 5' 5" Estimated body mass index is 31.28 kg/m as calculated from the following: Height as of this encounter: 5' 5". Weight as of this encounter: 85.3 kg (188 lb). Physical Exam Constitutional: General: She is not in acute distress. Appearance: She is not ill-appearing. HENT: Head: Normocephalic and atraumatic. Nose: Nose normal. Mouth/Throat: Mouth: Mucous membranes are moist. Pharynx: Oropharynx is clear. Eyes: Extraocular Movements: Extraocular movements intact. Conjunctiva/sclera: Conjunctivae normal. Pupils: Pupils are equal, round, and reactive to light. Cardiovascular: Rate and Rhythm: Normal rate and regular rhythm. Pulses: Normal pulses. Heart sounds: Normal heart sounds. No murmur heard. No gallop. Pulmonary: Effort: Pulmonary effort is normal. Breath sounds: Normal breath sounds. No wheezing, rhonchi or rales. Chest: Chest wall: No tenderness. Abdominal: General: Abdomen is flat. Bowel sounds are normal. There is no distension. Palpations: Abdomen is soft. There is no mass. Tenderness: There is no abdominal tenderness. There is no right CVA tenderness, left CVA tenderness, guarding or rebound. Musculoskeletal: General: No tenderness. Normal range of motion. Cervical back: Normal range of motion and neck supple. No rigidity. No muscular tenderness. Right lower leg: No edema. Left lower leg: No edema. Lymphadenopathy: Cervical: No cervical adenopathy. Skin: General: Skin is warm. Findings: No erythema or rash. Comments: No swelling/edema bilaterally, no abnormal discoloration/erythema or varicosities appreciated. Normal pedal pulses 2/2 bilaterally. Monofilament testing normal bilaterally. Neurological: General: No focal deficit present. Mental Status: She is alert and oriented to person, place, and time. Sensory: No sensory deficit. Motor: No weakness. Gait: Gait normal. Psychiatric: Mood and Affect: Mood normal. Behavior: Behavior normal. Thought Content: Thought content normal. Judgment: Judgment normal. OARRS/NARxCHECK Report Received and Assessed: No data found Date controlled substance agreement signed: No data found Date of last drug screen: No data found Functional Assessment: No data found @Exam@ PHQ9: FREDY-7 Tobacco Counseling: Counseling given: Not Answered Patient's Medications New Prescriptions MELOXICAM (MOBIC) 15 MG TABLET Take 1 (one) tablet (15 mg total) by mouth daily . Previous Medications ATORVASTATIN (LIPITOR) 40 MG TABLET Take 1 (one) tablet (40 mg total) by mouth daily . EXEMESTANE (AROMASIN) 25 MG TABLET Take 1 (one) tablet (25 mg total) by mouth every morning . FAMOTIDINE (PEPCID) 20 MG TABLET Take 1 (one) tablet (20 mg total) by mouth 2 (two) times a day . LISINOPRIL (PRINIVIL,ZESTRIL) 10 MG TABLET Take 1 (one) tablet (10 mg total) by mouth at bedtime . METFORMIN (GLUCOPHAGE XR) 500 MG 24 HR TABLET Take 1 (one) tablet (500 mg total) by mouth 2 (two) times a day with breakfast and lunch . Modified Medications No medications on file Discontinued Medications No medications on file Health Maintenance Due Topic Date Due COVID-19 Vaccine ( season) 2023 Depression Screening (PHQ-2/9) 08/10/2023 Pap Smear 09/26/2023 Assessment & Plan Problem List Items Addressed This Visit Endocrine Type 2 diabetes mellitus without complication, without long-term current use of insulin ([facility]) - Primary Last A1c was 6.0% on 09/26/2023 Compliant on metformin 500 mg daily. With vacation time consider taking Metformin twice daily. Discontinued Ozempic with concerns of choledocholithiasis and no increased weight loss. Encouraged her to take Lipitor 40 mg every night instead of every other day, reassured patient about long-term effects of statins. Labs discussed -Foot exam done September 18 and normal. -Ophthalmology check this year normal. No retinopathy concerns. PCV 20 given today mg, LDL at goal Relevant Orders DIABETES FOOT EXAM (Completed) TSH with Reflex Free T4 Microalbumin/Creatinine Ratio, UR Random Hemoglobin A1c Lipid Panel Comprehensive Metabolic Panel Musculoskeletal and Integument Plantar fasciitis Worsening slightly , encouraged to try NSAID with meloxicam before looking into steroid shots in that area Following up with her chiropractor Relevant Medications meloxicam (MOBIC) 15 MG tablet Other Invasive ductal carcinoma of breast, female, right (HCC) Diagnosed in 2019, stage IA right breast invasive ductal carcinoma, ER/AL +, HER2/marily negative. right breast lumpectomy and sentinel lymph node dissection. Exemestane and Prolia for suspicion of decreased bone density on current hormonal therapy on exemestane. dexa scan 2022 normal and responding to current therapy Encouraged to talk to about Prolia potential SE of body aches happening on the second month of the injection Healthcare maintenance Patient is up-to-date on mammogram screening as well as Pap smear both done this year. Diabetes care: Has had her eye exam updated with [facility] this year as well as foot exam done today. Up-to-date on immunizations, encouraged to take her biValent booster COVID- vaccine wants to stay with Moderna we will check with her local pharmacy. Pap smear : normal in 2019 , repeat today Other Visit Diagnoses Pap smear for cervical cancer screening Relevant Orders Thinprep Pap Smear Return in about 1 year (around 10/03/2024) for Annual Exam. Blood work prior to next visit ELO OGDEN MD [facility] [address] [facility] [address] [facility] [id number] Dept: [phone] 08/10/2022 2:29 PM Depression Screening Little interest or pleasure in doing things 0 Feeling down, depressed, or hopeless 0 PHQ-2 Total Score 0 Trouble falling or staying asleep, or sleeping too much 1 Feeling tired or having little energy 1 Poor appetite or overeating 1 Feeling bad about yourself - or that you are a failure or have let yourself or your family down 0 Trouble concentrating on things, such as reading the newspaper or watching television 0 Moving or speaking so slowly that other people could have noticed. Or the opposite - being so fidgety or restless that you have been moving around a lot more than usual 0 Thoughts that you would be better off , or of hurting yourself in some way 0 PHQ-9 Total Score 3 If you checked off any problems, how difficult have these problems made it for you to do your work,take care of things at home, or get along with other people? Not difficult at all documented in this [id number] History of Present illness Narrative* Oh Price, [employer] - 08/18/2023 5:25 PM EDT HPI Dahiana Harry female 1960 presents to the [facility] with Chief Complaint Patient presents with Sinus Congestion Cough Presents with cough and sinus congestion for over 2 weeks. States other family members had similar symptoms but improved. Patient states her symptoms seem to be worsening. She tried oydh-vqf-maofwpg medications. No recorded fevers. History Allergies Allergen Reactions Penicillins Strong family history of penicillin allergy. Current Outpatient Medications Medication Sig denosumab (PROLIA) 60 MG/ML SOSY injection Inject 1 mL under the skin once. exemestane 25 MG tablet Take 1 tablet by mouth. metformin-XR 500 MG Tab SR 24 HR Take 1 tablet by mouth every morning before breakfast. atorvastatin (LIPITOR) 40 MG Tab tablet Take 1 tablet by mouth daily. Azithromycin (Zithromax Z-Davin) 250 MG tablet Take 2 tablets (500 mg) on Day 1, then 1 tablet (250 mg) daily on Days 2-5 benzonatate 200 MG capsule Take 1 capsule by mouth 3 times daily as needed for Cough. calcium carbonate-vitamin D 600mg-400units 600-400 MG-UNIT tablet Take by mouth Twice daily. exemestane 25 MG tablet fexofenadine (LAVERNE ALLERGY) 180 MG Tab tablet Take 1 tablet by mouth daily. Lisinopril 10 MG tablet lisinopril 2.5 MG Tab tablet Take 1 tablet by mouth daily. Family History Problem Relation Age of Onset No known problems Mother Aneurysm Father Peripheral Vascular Disease Father Past Medical History: Diagnosis Date Arthritis Diabetes mellitus Essential hypertension, benign GERD (gastroesophageal reflux disease) Hyperlipidemia Insomnia Migraine Obesity (BMI 30-39.9) Snoring Past Surgical History: Procedure Laterality Date INCISION TENDON SHEATH FINGER HAND Right 06/04/2021 Laterality: Right; Surgeon: Chiquis Vargas MD; Location: [facility] BREAST LUMPECTOMY Right 2019 TUBAL LIGATION 1996 D&C DIAGNOSTIC/THERAPEUTIC NONOBSTETRICAL 1993 APPENDECTOMY OPEN 1976 SECTION 1977 SKIN BIOPSY Left BCC left cheek excision Social History Socioeconomic History Marital status: Spouse name: Not on file Number of children: Not on file Years of education: Not on file Highest education level: Not on file Occupational History Not on file Tobacco Use Smoking status: Never Smokeless tobacco: Never Substance and Sexual Activity Alcohol use: Yes Alcohol/week: 1.0 standard drink of alcohol Types: 1 Glasses of wine per week Comment: occasional Drug use: No Sexual activity: Not on file Other Topics Concern Not on file Social History Narrative Not on file Social Determinants of Health Financial Resource Strain: Not on file Food Insecurity: Not on file Transportation Needs: Not on file Physical Activity: Not on file Stress: Not on file Social Connections: Not on file Intimate Partner Violence: Not on file Housing Stability: Not on file ROS Review of Systems 8 systems reviewed with patient, negative unless specifically mentioned in history of present illness PHYSICAL EXAM Visit Vitals BP 131/76 Pulse 69 Temp 98.8 F (37.1 C) (Temporal) Resp 16 Ht 1.651 m (5' 5") Wt 86.2 kg (190 lb) SpO2 98% BMI 31.62 kg/m Physical Exam Vitals and nursing note reviewed. Constitutional: General: She is not in acute distress. Appearance: Normal appearance. She is well-developed. She is not ill-appearing or diaphoretic. HENT: Head: Normocephalic. Right Ear: Tympanic membrane normal. Left Ear: Tympanic membrane normal. Nose: Congestion present. Mouth/Throat: Mouth: Mucous membranes are moist. Pharynx: Oropharynx is clear. Eyes: Pupils: Pupils are equal, round, and reactive to light. Cardiovascular: Rate and Rhythm: Normal rate and regular rhythm. Heart sounds: Normal heart sounds. Pulmonary: Effort: Pulmonary effort is normal. No respiratory distress. Breath sounds: Normal breath sounds. Abdominal: General: There is no distension. Musculoskeletal: Cervical back: Neck supple. Lymphadenopathy: Cervical: No cervical adenopathy. Skin: General: Skin is warm and dry. Capillary Refill: Capillary refill takes less than 2 seconds. Neurological: General: No focal deficit present. Mental Status: She is alert and oriented to person, place, and time. Psychiatric: Mood and Affect: Mood normal. Behavior: Behavior normal. RESULTS No results found for this or any previous visit (from the past 1 hour(s)). ASSESSMENT/PLAN 1. Acute non-recurrent sinusitis, unspecified location 2. Acute cough Orders Placed This Encounter Azithromycin (Zithromax Z-Davin) 250 MG tablet benzonatate 200 MG capsule Acute sinusitis, upper respiratory infection treated with azithromycin and Tessalon Perles. Work note provided. If symptoms worsen patient was advised to follow up in our office, primary care provider or the Emergency Dept. Benefits, Risks, Contraindications, and Complications of recommended treatments were explained. The patient understands and agrees to proceed with plan. ELENO Graham 08/18/2023 [facility] History of Present illness Narrative* Cassandra Dye LPN - 08/05/2023 12:21 PM EDT DTU CORPt message sent to pt to reminder her to have labs drawn before appointment. * Alden Escobar LPN - 04/06/2023 8:49 AM EDT Reviewed labs ordered. Prior labs just completed 03/22/23 and pt had an OV on 03/24/23 where labs were then ordered and noted: Blood work prior to next visit Next OV scheduled for 09/27/23. documented in this [id number] History of Present illness Narrative* Alden Escobar LPN - 04/06/2023 8:49 AM EDT Reviewed labs ordered. Prior labs just completed 03/22/23 and pt had an OV on 03/24/23 where labs were then ordered and noted: Blood work prior to next visit Next OV scheduled for 09/27/23. documented in this [id number] History of Present illness Narrative* Alden Escobar LPN - 04/06/2023 8:49 AM EDT Reviewed labs ordered. Prior labs just completed 03/22/23 and pt had an OV on 03/24/23 where labs were then ordered and noted: Blood work prior to next visit Next OV scheduled for 09/27/23. documented in this [id number] Evaluation + Plan note* Assessment & Plan Note - Elo Ogden MD - 03/24/2023 4:08 PM EDTAssociated Problem(s): Essential hypertension Significantly improved on lisinopril 10 mg. Continue to monitor with salt restriction. [id number] Miscellaneous Notes* Assessment & Plan Note - Elo Ogden MD - 03/24/2023 4:08 PM EDTAssociated Problem(s): Essential hypertension Significantly improved on lisinopril 10 mg. Continue to monitor with salt restriction. * Assessment & Plan Note - Elo Ogden MD - 03/24/2023 4:06 PM EDTAssociated Problem(s): Type 2 diabetes mellitus without complication, without long-term current useof insulin (HCC) Last A1c was 6.1% on 03/09/2023, up from 5.8 Compliant on metformin 500 mg twice daily. Discontinued Ozempic with concerns of choledocholithiasis and no increased weight loss. We had a discussion about retrying on it but we also discussed that since she was taking it did nothave any weight changes on the low-dose. Encouraged her to take Lipitor 40 mg every night instead of every other day, reassured patient about long-term effects of statins. Labs discussed -Foot exam done September 18 and normal. -Ophthalmology check this year normal. No retinopathy concerns. PCV 20 given today mg, LDL at goal * Assessment & Plan Note - Elo Ogden MD - 03/24/2023 3:22 PM EDTAssociated Problem(s): Right elbow pain Chronic , worsening medial epicondylitis Off work over summer time meloxicam daily for 1-2 weeks If not getting better will pursue imaging and possible steroid injection documented in this [id number] Evaluation + Plan note* Assessment & Plan Note - Elo Ogden MD - 03/24/2023 4:06 PM EDTAssociated Problem(s): Type 2 diabetes mellitus without complication, without long-term current useof insulin (HCC) Last A1c was 6.1% on 03/09/2023, up from 5.8 Compliant on metformin 500 mg twice daily. Discontinued Ozempic with concerns of choledocholithiasis and no increased weight loss. We had a discussion about retrying on it but we also discussed that since she was taking it did nothave any weight changes on the low-dose. Encouraged her to take Lipitor 40 mg every night instead of every other day, reassured patient about long-term effects of statins. Labs discussed -Foot exam done September 18 and normal. -Ophthalmology check this year normal. No retinopathy concerns. PCV 20 given today mg, LDL at goal [id number] Evaluation + Plan note* Assessment & Plan Note - Elo Ogden MD - 03/24/2023 3:22 PM EDTAssociated Problem(s): Right elbow pain Chronic , worsening medial epicondylitis Off work over summer time meloxicam daily for 1-2 weeks If not getting better will pursue imaging and possible steroid injection [id number] History of Present illness Narrative* Elo Ogden MD - 03/24/2023 3:16 PM EDT Chief Complaint Patient presents with Follow-up 3 month f/u and discuss recent lab work. Gap Closure (Health Maintenance) Pneumococcal Vaccine: Ped or At-Risk(2 - PCV) due on 11/30/2018 COVID-19 Vaccine(4 - Booster) due on 01/22/2022 HPI: Lyn Harry is a 63 y.o. lady with a history of diabetes, GERD, HLD, PCOS, and seasonal allergies and right breast carcinoma. Former patient of . Hypertension: 11 yrs chronic, has not been checking her blood pressure recently at home. Has lisinopril 5 mg thatshe takes at bedtime. Denies any headaches, blurry vision, tingling/numbness in extremities DM: 10 yrs or so, she has been cutting back on the pop drinks. Compliant on metformin 500 mg BID , tookOzempic and gave her a lot of nausea and vomiting, was stopped for previous history of choledocholithiasis. Has been trying to lose weight to help with her diabetes control and hopefully taken off metformin. 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 Certain movements and weights bother her more. Past Medical History: Diagnosis Date Breast cancer (HCC) 01/31/2019 Right-Invasive mammary carcinoma Diabetes mellitus (HCC) Diabetes mellitus, type 2 (HCC) GERD (gastroesophageal reflux disease) Hyperlipidemia Hypertension Motion sickness PONV (postoperative nausea and vomiting) Seasonal allergies Trigger finger of right thumb 04/06/2021 Past Surgical History: Procedure Laterality Date APPENDECTOMY BREAST BIOPSY Right 2019 BREAST LUMPECTOMY Right 02/27/2019 BREAST LUMPECTOMY W/ SENTINEL NODE, NEEDLE LOC, POSS AX DIS Right 02/27/2019 Procedure: RIGHT BREAST LUMPECTOMY WITH SENTINEL NODE BIOPSY WITH NEEDLE LOCALIZATION AND POSSIBLE AXILLARY DISSECTION; Surgeon: Braden Gee MD; Location: Main OR; Service: General Surgery SECTION, CLASSIC 1996 CHOLECYSTECTOMY ROBOTIC XI N/A 08/12/2022 Procedure: CHOLECYSTECTOMY ROBOTIC XI; Surgeon: Braden Gee MD; Location: Main OR; Service: Gen-Robotics COLONOSCOPY 05/19/2017 Normal....Dr. Blackmon D & C WITH [place] 1994 EXPLORATORY LAPAROTOMY for infertility MM WIRE NEEDLE LOCALIZATION RIGHT Right 02/27/2019 MM NEEDLE LOCALIZATION RIGHT 02/27/2019 MAMMOGRAPHY RADIATION Right 04/2019 trigger finger surg Right 05/2021 at [facility] US BREAST BIOPSY RIGHT Right 01/31/2019 US BREAST BIOPSY RIGHT 01/31/2019, invasive mammary carcinoma US BREAST BIOPSY RIGHT Right 02/06/2019 US BREAST BIOPSY RIGHT Family History Problem Relation Age of Onset COPD Father Pancreatic cancer Paternal Grandmother Heart attack Paternal Grandfather Pancreatic cancer Maternal Uncle Lung cancer Paternal Aunt Social History Tobacco Use Smoking status: Never Smokeless tobacco: Never Vaping Use Vaping status: Never Used Substance Use Topics Alcohol use: Not Currently Comment: rarely Drug use: No Review of Systems Vitals: 03/24/23 1459 BP: 118/74 BP Location: Right arm Patient Position: Sitting BP Cuff Size: X-large Adult Pulse: 83 Resp: 16 Temp: 98.4 F (36.9 C) TempSrc: Infrared SpO2: 96% Weight: 86.3 kg (190 lb 3.2 oz) Height: 5' 5" Estimated body mass index is 31.65 kg/m as calculated from the following: Height as of this encounter: 5' 5". Weight as of this encounter: 86.3 kg (190 lb 3.2 oz). Physical Exam Constitutional: General: She is not in acute distress. Appearance: She is not ill-appearing. HENT: Head: Normocephalic and atraumatic. Nose: Nose normal. Mouth/Throat: Mouth: Mucous membranes are moist. Pharynx: Oropharynx is clear. Eyes: Extraocular Movements: Extraocular movements intact. Conjunctiva/sclera: Conjunctivae normal. Pupils: Pupils are equal, round, and reactive to light. Cardiovascular: Rate and Rhythm: Normal rate and regular rhythm. Pulses: Normal pulses. Heart sounds: Normal heart sounds. No murmur heard. No gallop. Pulmonary: Effort: Pulmonary effort is normal. Breath sounds: Normal breath sounds. No wheezing, rhonchi or rales. Chest: Chest wall: No tenderness. Abdominal: General: Abdomen is flat. Bowel sounds are normal. There is no distension. Palpations: Abdomen is soft. There is no mass. Tenderness: There is no abdominal tenderness. There is no right CVA tenderness, left CVA tenderness, guarding or rebound. Musculoskeletal: General: Tenderness (Medial epicondyle of the right elbow) present. Normal range of motion. Cervical back: Normal range of motion and neck supple. No rigidity. No muscular tenderness. Right lower leg: No edema. Left lower leg: No edema. Lymphadenopathy: Cervical: No cervical adenopathy. Skin: General: Skin is warm. Findings: No erythema or rash. Neurological: General: No focal deficit present. Mental Status: She is alert and oriented to person, place, and time. Sensory: No sensory deficit. Motor: No weakness. Gait: Gait normal. Psychiatric: Mood and Affect: Mood normal. Behavior: Behavior normal. Thought Content: Thought content normal. Judgment: Judgment normal. OARRS/NARxCHECK Report Received and Assessed: No data found Date controlled substance agreement signed: No data found Date of last drug screen: No data found Functional Assessment: No data found @Exam@ PHQ9: FREDY-7 Tobacco Counseling: Counseling given: Not Answered Patient's Medications New Prescriptions MELOXICAM (MOBIC) 7.5 MG TABLET Take 1 (one) tablet (7.5 mg total) by mouth daily . Previous Medications EXEMESTANE (AROMASIN) 25 MG TABLET Take 1 (one) tablet (25 mg total) by mouth every morning . PNEUMOCOCCAL CONJ. 20-VALENT (PREVNAR 20) 0.5 ML VACCINE Inject 0.5 mL into the shoulder, thigh, orbuttocks Sign this order in conjunction with the immunization order to satisfy [place] Board of PharmacyPositive ID requirements for immunization orders . Modified Medications Modified Medication Previous Medication ATORVASTATIN (LIPITOR) 40 MG TABLET atorvastatin (LIPITOR) 40 MG tablet Take 1 (one) tablet (40 mg total) by mouth daily . Take 1 (one) tablet (40 mg total) by mouth daily. FAMOTIDINE (PEPCID) 20 MG TABLET famotidine (PEPCID) 20 MG tablet Take 1 (one) tablet (20 mg total) by mouth 2 (two) times a day . Take 1 (one) tablet (20 mg total) by mouth 2 (two) times a day . LISINOPRIL (PRINIVIL,ZESTRIL) 10 MG TABLET lisinopriL (PRINIVIL,ZESTRIL) 10 MG tablet Take 1 (one) tablet (10 mg total) by mouth at bedtime . Take 1 (one) tablet (10 mg total) by mouth at bedtime . METFORMIN (GLUCOPHAGE XR) 500 MG 24 HR TABLET metFORMIN (Glucophage XR) 500 MG 24 hr tablet Take 1 (one) tablet (500 mg total) by mouth 2 (two) times a day with breakfast and lunch . Take 1 (one) tablet (500 mg total) by mouth 2 (two) times a day with breakfast and lunch . Discontinued Medications No medications on file Health Maintenance Due Topic Date Due COVID-19 Vaccine (4 - Booster) 01/22/2022 Assessment & Plan Problem List Items Addressed This Visit Digestive Gastroesophageal reflux disease without esophagitis Relevant Medications famotidine (PEPCID) 20 MG tablet Endocrine Type 2 diabetes mellitus without complication, without long-term current use of insulin ([facility]) - Primary Last A1c was 6.1% on 03/09/2023, up from 5.8 Compliant on metformin 500 mg twice daily. Discontinued Ozempic with concerns of choledocholithiasis and no increased weight loss. We had a discussion about retrying on it but we also discussed that since she was taking it did nothave any weight changes on the low-dose. Encouraged her to take Lipitor 40 mg every night instead of every other day, reassured patient about long-term effects of statins. Labs discussed -Foot exam done September 18 and normal. -Ophthalmology check this year normal. No retinopathy concerns. PCV 20 given today mg, LDL at goal Relevant Medications atorvastatin (LIPITOR) 40 MG tablet metFORMIN (Glucophage XR) 500 MG 24 hr tablet Other Relevant Orders TSH with Reflex Free T4 Microalbumin/Creatinine Ratio, UR Random Lipid Panel Comprehensive Metabolic Panel Cardiovascular and Mediastinum Essential hypertension Significantly improved on lisinopril 10 mg. Continue to monitor with salt restriction. Relevant Medications lisinopriL (PRINIVIL,ZESTRIL) 10 MG tablet Other Relevant Orders Hemoglobin A1c Other Mixed hyperlipidemia Relevant Medications atorvastatin (LIPITOR) 40 MG tablet Right elbow pain Chronic , worsening medial epicondylitis Off work over summer time meloxicam daily for 1-2 weeks If not getting better will pursue imaging and possible steroid injection Relevant Medications meloxicam (MOBIC) 7.5 MG tablet Other Visit Diagnoses Encounter for immunization Relevant Medications pneumococcal conj. 20-valent (PREVNAR 20) 0.5 mL vaccine Other Relevant Orders Pneumococcal conjugate vaccine 20-valent (Completed) Return in about 6 months (around 09/23/2023) for Annual Exam. Blood work prior to next visit ELO OGDEN MD [facility] [address] [facility] [address] [facility] [address] Dept: [phone] Depression Screening 08/10/2022 Little interest or pleasure in doing things 0 Feeling down, depressed, or hopeless 0 PHQ-2 Total Score 0 Trouble falling or staying asleep, or sleeping too much 1 Feeling tired or having little energy 1 Poor appetite or overeating 1 Feeling bad about yourself - or that you are a failure or have let yourself or your family down 0 Trouble concentrating on things, such as reading the newspaper or watching television 0 Moving or speaking so slowly that other people could have noticed. Or the opposite - being so fidgety or restless that you have been moving around a lot more than usual 0 Thoughts that you would be better off , or of hurting yourself in some way 0 PHQ-9 Total Score 3 If you checked off any problems, how difficult have these problems made it for you to do your work,take care of things at home, or get along with other people? Not difficult at all documented in this [id number] History of Present illness Narrative* Efren Silva RN - 03/09/2023 2:27 PM EDT Denies any jaw pain and teeth issues at this time documented in this [id number] Telephone encounter Note* Telephone Encounter - Samia Merino MA - 01/24/2023 9:49 AM EST REQUESTING REFILL ON QUEUED MEDICATION(S). LAST OV:12/21/2022 NEXT OV:03/24/2023 [id number] Miscellaneous Notes* Telephone Encounter - Samia Merino MA - 01/24/2023 9:49 AM EST REQUESTING REFILL ON QUEUED MEDICATION(S). LAST OV:12/21/2022 NEXT OV:03/24/2023 documented in this [id number] Instructions* Patient Instructions* Elo Ogden MD - 12/21/2022 3:08 PM EST Problem List Items Addressed This Visit Digestive Gastroesophageal reflux disease without esophagitis Relevant Medications famotidine (PEPCID) 20 MG tablet Endocrine Type 2 diabetes mellitus without complication, without long-term current use of insulin ([facility]) - Primary Last A1c was 7.2 in July 2022, down to 5.8 Compliant on metformin 500 mg , trying to lose weight Increasing metformin today to 500 mg twice daily along with adding Ozempic, intolerant will take a break from it for 3 months. Labs discussed -Foot exam done September 18 and normal. -Ophthalmology check this year normal. No retinopathy concerns. Patient is on Lipitor 40 mg, LDL at goal Relevant Orders TSH with Reflex Free T4 Microalbumin/Creatinine Ratio, UR Random Hemoglobin A1c Lipid Panel Comprehensive Metabolic Panel If any referrals were placed at the time of your visit please allow 2 weeks for processing. If you haven't heard from anyone within 2 weeks please contact my office so we can look into the status of your referral. If you were given any labs today please ensure they are completed according to the directions given. Once labs are completed please allow 1-2 weeks for us to receive the results, review them, and letyou know what steps, if any, are needed next. If you haven't heard from us after that please call to inquire. If labs were ordered to be done PRIOR to your next visit we will discuss the results at the time ofyour office visit. If any procedures or imaging studies were ordered that must be prior authorized please give us 2 weeks to get them approved. Once approved someone should call you to schedule them or give you a date and time that they were scheduled for. If you haven't heard anything within 2 weeks of the office visit please call the office so we can look into their status. Customer Service/Billing Questions: [phone] [place] Assistance: [phone] or [phone] Financial Assistance: [phone] or [phone] As of December 03, 2019 my schedule will be changing: Tuesday 7 am to 5 pm Tuesday 7 am to 5 pm Tuesday closed Thursday 7 am to 5 pm Tuesday 7 am to 1 pm documented in this [id number] Evaluation + Plan note* Assessment & Plan Note - Elo Ogden MD - 12/21/2022 3:06 PM ESTAssociated Problem(s): Type 2 diabetes mellitus without complication, without long-term current useof insulin (HCC) Last A1c was 7.2 in July 2022, down to 5.8 Compliant on metformin 500 mg , trying to lose weight Increasing metformin today to 500 mg twice daily along with adding Ozempic, intolerant will take a break from it for 3 months uziel in the setting of previous choledocholithiasis. Labs discussed -Foot exam done September 18 and normal. -Ophthalmology check this year normal. No retinopathy concerns. Patient is on Lipitor 40 mg, LDL at goal [id number] Miscellaneous Notes* Assessment & Plan Note - Elo Ogden MD - 12/21/2022 3:06 PM ESTAssociated Problem(s): Type 2 diabetes mellitus without complication, without long-term current useof insulin (HCC) Last A1c was 7.2 in July 2022, down to 5.8 Compliant on metformin 500 mg , trying to lose weight Increasing metformin today to 500 mg twice daily along with adding Ozempic, intolerant will take a break from it for 3 months uziel in the setting of previous choledocholithiasis. Labs discussed -Foot exam done September 18 and normal. -Ophthalmology check this year normal. No retinopathy concerns. Patient is on Lipitor 40 mg, LDL at goal documented in this [id number] History of Present illness Narrative* Elo Ogden MD - 12/21/2022 2:51 PM EST Chief Complaint Patient presents with Follow-up 3 month f/u Gap Closure (Health Maintenance) Urine Microalbumin due on 03/04/2022 HPI: Lyn Harry is a 62 y.o. lady with a history of diabetes, GERD, HLD, PCOS, and seasonal allergies and right breast carcinoma. Former patient of . Hypertension: 10 yrs chronic, has not been checking her blood pressure recently at home. Has lisinopril 5 mg thatshe takes at bedtime. Denies any headaches, blurry vision, tingling/numbness in extremities DM: 10 yrs or so, her latest hemoglobin A1c was at 7.2 on 08/10/22, she has been cutting back on the popdrinks. Compliant on metformin 500 mg BID , took Ozempic and gave her a lot of nausea and vomiting.Has been trying to lose weight to help with her diabetes control and hopefully taken off metformin. Past Medical History: Diagnosis Date Breast cancer (HCC) 01/31/2019 Right-Invasive mammary carcinoma Diabetes mellitus (HCC) Diabetes mellitus, type 2 (HCC) GERD (gastroesophageal reflux disease) Hyperlipidemia Hypertension Motion sickness PONV (postoperative nausea and vomiting) Seasonal allergies Trigger finger of right thumb 04/06/2021 Past Surgical History: Procedure Laterality Date APPENDECTOMY BREAST BIOPSY Right 2019 BREAST LUMPECTOMY Right 02/27/2019 BREAST LUMPECTOMY W/ SENTINEL NODE, NEEDLE LOC, POSS AX DIS Right 02/27/2019 Procedure: RIGHT BREAST LUMPECTOMY WITH SENTINEL NODE BIOPSY WITH NEEDLE LOCALIZATION AND POSSIBLE AXILLARY DISSECTION; Surgeon: Braden Gee MD; Location: Main OR; Service: General Surgery SECTION, CLASSIC 1996 CHOLECYSTECTOMY ROBOTIC XI N/A 08/12/2022 Procedure: CHOLECYSTECTOMY ROBOTIC XI; Surgeon: Braden Gee MD; Location: Main OR; Service: Gen-Robotics COLONOSCOPY 05/19/2017 Normal....Dr. Blackmon D & C WITH [place] 1994 EXPLORATORY LAPAROTOMY for infertility MM WIRE NEEDLE LOCALIZATION RIGHT Right 02/27/2019 MM NEEDLE LOCALIZATION RIGHT 02/27/2019 MAMMOGRAPHY RADIATION Right 04/2019 trigger finger surg Right 05/2021 at [facility] BREAST BIOPSY RIGHT Right 01/31/2019 US BREAST BIOPSY RIGHT 01/31/2019, invasive mammary carcinoma US BREAST BIOPSY RIGHT Right 02/06/2019 US BREAST BIOPSY RIGHT Family History Problem Relation Age of Onset COPD Father Pancreatic cancer Paternal Grandmother Heart attack Paternal Grandfather Pancreatic cancer Maternal Uncle Lung cancer Paternal Aunt Social History Tobacco Use Smoking status: Never Smokeless tobacco: Never Vaping Use Vaping Use: Never used Substance Use Topics Alcohol use: Not Currently Comment: rarely Drug use: No Review of Systems Vitals: 12/21/22 1440 BP: 127/80 BP Location: Right arm Patient Position: Sitting BP Cuff Size: X-large Adult Pulse: 76 Resp: 16 Temp: 97 F (36.1 C) TempSrc: Temporal SpO2: 96% Weight: 86.6 kg (191 lb) Height: 5' 5" Estimated body mass index is 31.78 kg/m as calculated from the following: Height as of this encounter: 5' 5". Weight as of this encounter: 86.6 kg (191 lb). Physical Exam Constitutional: General: She is not in acute distress. Appearance: She is not ill-appearing. HENT: Head: Normocephalic and atraumatic. Right Ear: Tympanic membrane, ear canal and external ear normal. Left Ear: Tympanic membrane, ear canal and external ear normal. Nose: Nose normal. Mouth/Throat: Mouth: Mucous membranes are moist. Pharynx: Oropharynx is clear. No oropharyngeal exudate or posterior oropharyngeal erythema. Eyes: Extraocular Movements: Extraocular movements intact. Conjunctiva/sclera: Conjunctivae normal. Pupils: Pupils are equal, round, and reactive to light. Cardiovascular: Rate and Rhythm: Normal rate and regular rhythm. Pulses: Normal pulses. Heart sounds: Normal heart sounds. No murmur heard. No gallop. Pulmonary: Effort: Pulmonary effort is normal. Breath sounds: Normal breath sounds. No wheezing, rhonchi or rales. Chest: Chest wall: No tenderness. Abdominal: General: Abdomen is flat. Bowel sounds are normal. There is no distension. Palpations: Abdomen is soft. There is no mass. Tenderness: There is no abdominal tenderness. There is no right CVA tenderness, left CVA tenderness, guarding or rebound. Musculoskeletal: General: No tenderness. Normal range of motion. Cervical back: Normal range of motion and neck supple. No rigidity. No muscular tenderness. Right lower leg: No edema. Left lower leg: No edema. Lymphadenopathy: Cervical: No cervical adenopathy. Skin: General: Skin is warm. Findings: No erythema or rash. Neurological: General: No focal deficit present. Mental Status: She is alert and oriented to person, place, and time. Sensory: No sensory deficit. Motor: No weakness. Gait: Gait normal. Psychiatric: Mood and Affect: Mood normal. Behavior: Behavior normal. Thought Content: Thought content normal. Judgment: Judgment normal. OARRS/NARxCHECK Report Received and Assessed: No data found Date controlled substance agreement signed: No data found Date of last drug screen: No data found Functional Assessment: No data found @Exam@ PHQ9: FREDY-7 Tobacco Counseling: Counseling given: Not Answered Patient's Medications New Prescriptions FAMOTIDINE (PEPCID) 20 MG TABLET Take 1 (one) tablet (20 mg total) by mouth 2 (two) times a day . Previous Medications ATORVASTATIN (LIPITOR) 40 MG TABLET Take 1 (one) tablet (40 mg total) by mouth daily . EXEMESTANE (AROMASIN) 25 MG TABLET Take 1 (one) tablet (25 mg total) by mouth daily . LISINOPRIL (PRINIVIL,ZESTRIL) 10 MG TABLET Take 1 (one) tablet (10 mg total) by mouth at bedtime . METFORMIN (GLUCOPHAGE XR) 500 MG 24 HR TABLET Take 1 (one) tablet (500 mg total) by mouth 2 (two) times a day with breakfast and lunch . Modified Medications No medications on file Discontinued Medications OMEPRAZOLE (PRILOSEC) 40 MG CAPSULE Take 1 (one) capsule (40 mg total) by mouth every morning before breakfast . SEMAGLUTIDE (OZEMPIC) 0.25 MG OR 0.5 MG(2 MG/1.5 ML) PEN Inject 0.5 (one-half) mg under the skin every 7 days . Health Maintenance Due Topic Date Due Pneumococcal Vaccine: Ped or At-Risk (2 - PCV) 11/30/2018 COVID-19 Vaccine (4 - Booster) 01/22/2022 Urine Microalbumin 03/04/2022 Assessment & Plan Problem List Items Addressed This Visit Digestive Gastroesophageal reflux disease without esophagitis Relevant Medications famotidine (PEPCID) 20 MG tablet Endocrine Type 2 diabetes mellitus without complication, without long-term current use of insulin ([facility]) - Primary Last A1c was 7.2 in July 2022, down to 5.8 Compliant on metformin 500 mg , trying to lose weight Increasing metformin today to 500 mg twice daily along with adding Ozempic, intolerant will take a break from it for 3 months uziel in the setting of previous choledocholithiasis. Labs discussed -Foot exam done September 18 and normal. -Ophthalmology check this year normal. No retinopathy concerns. Patient is on Lipitor 40 mg, LDL at goal Relevant Orders TSH with Reflex Free T4 Microalbumin/Creatinine Ratio, UR Random Hemoglobin A1c Lipid Panel Comprehensive Metabolic Panel Return in about 3 months (around 03/21/2023) for Follow Up, A1c after 03/21. ELO OGDEN MD [facility] [address] [facility] [address] [facility] [id number] Dept: [phone] Depression Screening 08/10/2022 Little interest or pleasure in doing things 0 Feeling down, depressed, or hopeless 0 PHQ-2 Total Score 0 Trouble falling or staying asleep, or sleeping too much 1 Feeling tired or having little energy 1 Poor appetite or overeating 1 Feeling bad about yourself - or that you are a failure or have let yourself or your family down 0 Trouble concentrating on things, such as reading the newspaper or watching television 0 Moving or speaking so slowly that other people could have noticed. Or the opposite - being so fidgety or restless that you have been moving around a lot more than usual 0 Thoughts that you would be better off , or of hurting yourself in some way 0 PHQ-9 Total Score 3 If you checked off any problems, how difficult have these problems made it for you to do your work,take care of things at home, or get along with other people? Not difficult at all documented in this [id number] History of Present illness Narrative* Marion Garrett MD - 11/15/2022 3:00 PM EST [facility] Note Date of service: 11/15/2022 Referring Physician: Braden Gee MD PCP: Dereje Trejo MD Diagnosis/chief Complaint: Right breast invasive ductal carcinoma, ER/AL +, HER2/marily negative AJCC stage: pT1c pN0 Mx, Stage IA Date of diagnosis: 01/31/19 Goal of treatment: curative Treatment delivered: Right breast lumpectomy with SLND Reason for visit: R breast invasive ductal carcinoma Interval History: Ms. Harry is here to follow-up while on adjuvant endocrine therapy with exemestane. She seems to be tolerating this well. She denies any new issues. No new medications. She last received Prolia on 09/08/2022. She recently started ozempic and has lost 10 lbs. HPI: Ms. Harry is a 58 year old lady with a history of diabetes, GERD, HLD, PCOS, and seasonal allergies who is being seen by oncology for a new diagnosis of stage IA right breast invasive ductal carcinoma, ER/AL +, HER2/marily negative. The patient states that she was not having any issues prior to the diagnosis. This was found on a routine screening mammogram. She says she had a mammogram last year thatwas normal. She had a mammogram at the end of December which noted a right breast lesion that was concerning for malignancy. Given this they proceeded with a biopsy which confirmed right breast invasive ductal carcinoma, ER AL positive, HER-2/marily negative. She was then referred to see Dr. Gee. They discussed surgical options and the patient elected to proceed with a right breast lumpectomy andsentinel lymph node dissection. She tolerated surgery well and is healing well from her surgery. This was performed in early February. Her final pathology shows a tumor measuring up to 1.9 cm. The sentinel lymph node were negative for malignancy. It was overall grade 1. Her final pathology shows a pT1c pN0 Mx stage I a invasive ductal carcinoma of the right breast, ER/AL positive, HER-2/marily negative. She is healing well from the surgery and she is here today to discuss next steps in her therapy. She denies any family history of breast cancer. No family history of ovarian cancer or endometrial cancer. Reproductive risk factors: Age of menarche at 17 years Age of menopause at 56 years. 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 control pills: yes. Hormone replacement therapy: yes. Caffeine intake yes History of prior breast biopsy no History of prior breast cancer no Family History : Breast cancer no Ovarian Cancer no Endometrial cancer no Family History of breast disease no ROS: General- Denies weakness, fever/chills, weight gain/loss, fatigue, change in appetite, or cold and flu symptoms HEENT: Denies hearing changes or tinnitus, vision changes, sinus pain/tenderness, nasal congestion,epistaxis, gingival bleed, sore throat, or mouth sores Cardiac; Denies CP, palpitations, dizziness, claudication, or QUINN Pulmonary- Denies SOB, wheezing, PND, or cough GI- Denies nausea and vomiting, dysphagia, heartburn, abdominal pain, diarrhea or constipation - Denies urgency, frequency, hematuria or incontinence, complains of burning when urinating Endo- Denies excessive sweating, polyuria, or polydypsia MS - Denies joint stiffness swelling, or decreased ROM, Neuro- Denies loss of consciousness, numbness or tingling Skin- Denies jaundice, rashes, or open lesions Heme- Denies night sweats, signs and symptoms of infection, easily bleeding or bruising Psych- Denies signs and symptoms of depression or suicidal thoughts Past Medical History: Diagnosis Date Breast cancer (HCC) 01/31/2019 Right-Invasive mammary carcinoma Diabetes mellitus (HCC) Diabetes mellitus, type 2 (HCC) GERD (gastroesophageal reflux disease) Hyperlipidemia Hypertension Motion sickness PONV (postoperative nausea and vomiting) Seasonal allergies Trigger finger of right thumb 04/06/2021 Past Surgical History: Procedure Laterality Date APPENDECTOMY BREAST BIOPSY Right 2019 BREAST LUMPECTOMY Right 02/27/2019 BREAST LUMPECTOMY W/ SENTINEL NODE, NEEDLE LOC, POSS AX DIS Right 02/27/2019 Procedure: RIGHT BREAST LUMPECTOMY WITH SENTINEL NODE BIOPSY WITH NEEDLE LOCALIZATION AND POSSIBLE AXILLARY DISSECTION; Surgeon: Braden Gee MD; Location: Main OR; Service: General Surgery SECTION, CLASSIC 1996 CHOLECYSTECTOMY ROBOTIC XI N/A 08/12/2022 Procedure: CHOLECYSTECTOMY ROBOTIC XI; Surgeon: Braden Gee MD; Location: Main OR; Service: Gen-Robotics COLONOSCOPY 05/19/2017 Normal....Dr. Blackmon D & C WITH [facility] 1994 EXPLORATORY LAPAROTOMY for infertility MM WIRE NEEDLE LOCALIZATION RIGHT Right 02/27/2019 MM NEEDLE LOCALIZATION RIGHT 02/27/2019 MAMMOGRAPHY RADIATION Right 04/2019 trigger finger surg Right 05/2021 at [facility] BREAST BIOPSY RIGHT Right 01/31/2019 US BREAST BIOPSY RIGHT 01/31/2019, invasive mammary carcinoma US BREAST BIOPSY RIGHT Right 02/06/2019 US BREAST BIOPSY RIGHT Family History Problem Relation Age of Onset COPD Father Pancreatic cancer Paternal Grandmother Heart attack Paternal Grandfather Pancreatic cancer Maternal Uncle Lung cancer Paternal Aunt Social History Socioeconomic History Marital status: Tobacco Use Smoking status: Never Smokeless tobacco: Never Vaping Use Vaping Use: Never used Substance and Sexual Activity Alcohol use: Not Currently Comment: rarely Drug use: No Sexual activity: Yes Partners: Male control/protection: Post-menopausal Social Determinants of Health Financial Resource Strain: Low Risk Difficulty of Paying Living Expenses: Not hard at all Food Insecurity: No Food Insecurity Worried About Running Out of Food in the Last Year: Never true Ran Out of Food in the Last Year: Never true Transportation Needs: No Transportation Needs Lack of Transportation (Medical): No Lack of Transportation (Non-Medical): No Physical Activity: Insufficiently Active Days of Exercise per Week: 4 days Minutes of Exercise per Session: 20 min Stress: No Stress Concern Present Feeling of Stress : Only a little Social Connections: Socially Integrated Frequency of Communication with Friends and Family: Three times a week Frequency of Social Gatherings with Friends and Family: Three times a week Attends Confucianist Services: More than 4 times per year Active Member of Clubs or Organizations: No Attends Club or Organization Meetings: 1 to 4 times per year Marital Status: Housing Stability: Unknown Unable to Pay for Housing in the Last Year: No Unstable Housing in the Last Year: No Allergies Allergen Reactions Penicillins Swelling Strong family history of penicillin allergy. Current Outpatient Medications: atorvastatin (LIPITOR) 40 MG tablet, Take 1 (one) tablet (40 mg total) by mouth daily ., Disp: 90 tablet, Rfl: 1 exemestane (AROMASIN) 25 mg tablet, Take 1 (one) tablet (25 mg total) by mouth daily . (Patient taking differently: Take 1 (one) tablet (25 mg total) by mouth every morning .), Disp: 30 tablet, Rfl: 11 lisinopriL (PRINIVIL,ZESTRIL) 10 MG tablet, Take 1 (one) tablet (10 mg total) by mouth at bedtime ., Disp: 180 tablet, Rfl: 2 metFORMIN (Glucophage XR) 500 MG 24 hr tablet, Take 1 (one) tablet (500 mg total) by mouth 2 (two) times a day with breakfast and lunch ., Disp: 90 tablet, Rfl: 1 omeprazole (PRILOSEC) 40 MG capsule, Take 1 (one) capsule (40 mg total) by mouth every morning before breakfast ., Disp: 90 capsule, Rfl: 0 semaglutide (Ozempic) 0.25 mg or 0.5 mg(2 mg/1.5 mL) Pen, Inject 0.5 (one-half) mg under the skin every 7 days ., Disp: 1.5 mL, Rfl: 2 Physical exam: ECOG PS: 0 PACU Vitals 11/15/22 1504 BP: 138/86 Pulse: 86 Temp: 98.2 F (36.8 C) SpO2: 96% General: well-appearing, no acute distress HEENT: NCAT, sclera anicteric, moist mm, o/p clear , no oral mucosal lesions Neck: supple, no supraclavicular adenopathy Lymph: no cervical, supraclavicular, or axillary LAD Chest: CTAB, no w/r/r, no respiratory distress CV: RRR, no S3 S4 gallops or murmurs Abd: soft, NT/ND, no HSM or masses, + BS Extrem: wwp, no c/c/e Skin: Slight yellow discoloration of the right breast no rashes or lesions Neuro: alert, oriented, CN intact, speech fluent, strength full and symmetric Breast: Right breast with 3 cm horizontal incision that is located about 2 cm above the nipple, well-healed, no erythema or drainage. Slight yellow discoloration of the skin of the right breast. No masses palpated in right breast. No axillary adenopathy appreciated. Left breast with no masses palpated or skin changes or nipple discharge. No axillary adenopathy. Psych: Mood normal, Affect normal Labs: Lab Results Component Value Date WBC 4.32 (L) 08/05/2022 HGB 13.6 08/05/2022 HCT 37.8 08/05/2022 MCV 90.0 08/05/2022 PLT 160 08/05/2022 RBC 4.20 08/05/2022 Lab Results Component Value Date GLUCOSE 118 (H) 08/05/2022 CALCIUM 10.4 (H) 08/05/2022 NA 140 08/05/2022 K 4.4 08/05/2022 CL 108 08/05/2022 BUN 9 08/05/2022 CREATININE 0.80 08/05/2022 Lab Results Component Value Date ALT 39 08/05/2022 AST 22 08/05/2022 ALKPHOS 53 08/05/2022 BILITOT 0.8 08/05/2022 Imaging: Screening mammogram 01/22/2021: Expected post-treatment changes in the right breast. No mammographic evidence for malignancy in either breast. BIRADS: Category 2 - Benign, no evidence of malignancy. Normal interval follow-up is recommended in 12 months. OVERALL ASSESSMENT - BENIGN Mammogram 01/22/20: No mammographic or sonographic evidence of malignancy. BIRADS - CATEGORY 2 Benign, no evidence of malignancy. Normal interval follow-up is recommended in 12 months. DEXA 08/17/19: Normal Mammogram 01/24/19: 1. Suspicious mass within the right breast at 12:00 5 cm from the nipple. 2. Benign complicated appearing cyst within the left breast at 10:00 4 cm from the nipple. OVERALL BIRADS: 4C-HIGH SUSPICION FOR MALIGNANCY-BIOPSY IS RECOMMENDED. RECOMMENDATION: 1: Ultrasound-guided biopsy of the right breast is recommended. Pathology: Right breast Lumpectomy 02/27/19: Histologic type: Invasive ductal carcinoma, not otherwise specified Histologic ([place]) grade: Glandular/Tubular differentiation: Score 3 Nuclear pleomorphism: Score 1 Mitotic rate: Score 1 Overall grade: Grade 1 (scores of 3, 4, or 5) Margins: Invasive carcinoma margins: Uninvolved by invasive carcinoma Distance from closest margin: Inferior margin, 2 mm DCIS margins: Uninvolved by DCIS Distance from closest margin: Inferior margin, 6 mm Pathologic Stage (AJCC 8th Ed.): pT1c pN0(sn) Procedure: Partial mastectomy Specimen laterality: Right Tumor site: 12 o'clock Tumor size: 1.9 cm Tumor focality: Single focus of invasive carcinoma Ductal carcinoma in-situ (DCIS): Present Tumor extension: Skin: Skin is not present Nipple: Nipple is not present Skeletal muscle: No skeletal muscle is present Regional lymph nodes: Uninvolved by tumor cells Number of lymph nodes examined: 4 Number of sentinel lymph nodes examined: 4 Treatment effect: No known presurgical therapy Lymphovascular invasion: Not identified Dermal lymphovascular invasion: No skin present Additional pathologic findings: None Ancillary studies: (performed on prior biopsy [id number]) ER: Positive ( 100%, 3+ intensity, resulted by image analysis) AL: Positive ( 100%, 3+ intensity, resulted by image analysis) HER2: Negative (0, resulted by image analysis) A. Lymph node(s), Axillary, [place], Right, lymphadenectomy: One lymph node, negative for malignancy (0/1). B. Lymph node(s), Axillary, [place], Right, lymphadenectomy: One lymph node, negative for malignancy (0/1). C. Breast, Right, lumpectomy: 1. Invasive ductal carcinoma. See synoptic report. 2. The margins of excision are uninvolved by tumor. D. Lymph node(s), Axillary, [place], Right, lymphadenectomy: Two lymph nodes, negative for malignancy (0/2). Assessment / plan: Ms. Harry is a 62 y.o. lady with a history of diabetes, GERD, HLD, PCOS, and seasonal allergies who is being seen by oncology for a new diagnosis of stage IA right breast invasive ductal carcinoma, ER/AL +, HER2/marily negative. Right breast invasive ductal carcinoma, ER/AL positive, HER-2/marily negative, pT1c pN0 Mx, Stage IA: The patient presented for her diagnosis of right breast invasive ductal carcinoma, ER AL positive, HER-2/marily negative. This was found on a routine screening mammogram and she did not have any symptoms prior to this. She had a right breast lumpectomy on 02/27/[address] Gee. The final pathology is as above overall stage I a, hormone positive, HER-2/marily negative. -I sent an Oncotype DX test on her tumor specimen and this returned with a score of 17 which is low. Based on this her absolute benefit of adjuvant chemotherapy would be less than 1%. Also, her risk of recurrence at 9 years with either an AI or tamoxifen is 5%. -Given her low Oncotype DX score, I would not recommend adjuvant chemotherapy in addition to adjuvant endocrine therapy. -She received adjuvant radiation from 05/07/2019 to 06/05/2019. -She was then started on Arimidex 1 mg daily in May 2019. She was initially tolerating this well but in fall 2019 she had increased stiffness in the fingers and pain in her collarbone. -She stopped Arimidex at that time and switched to exemestane. She is tolerating this better with no arthralgias. She denies any significant hot flashes. -She should continue endocrine therapy for at least 5 years, through 05/2024. -Her last bone density scan was from 08/18/2021 and noted normal bone density however she had significant bone density loss compared to her prior scan. She was previously on calcium and vitamin D however this resulted in hypercalcemia and she was instructed to stop. -She elected to proceed with Prolia and started this on 09/09/2021 and tolerated it well. We will plan to continue with repeat bone density scan in July 2023. Will hold off on this for now givenher upcoming insurance change. -Her last mammogram was on 01/25/2022 and was normal, she is due for follow-up in 1 year, and this is scheduled for 01/26/2023. We will follow-up. Joint stiffness: Likely due to Arimidex. She continues on exemestane at this point and is tolerating this well. Will monitor. Diabetes: Per patient history. She will continue to follow with her PCP for this. Last HbA1c was 7.2. She is on metformin for this. Hypertension: Per patient history. She will continue follow-up with her PCP for this. Her blood pressure today is 138/86. She did take her medications. RTC 1 year Education Provided Education/Instructions given to: (x) Patient (_) Spouse (_) Parent (_) Other Barriers to Learning: (x) None (_) Yes (identify):_ Content: (x) Refer to note above (_)Other (identify):_ Evaluation/Outcome: (x) Verbalized understanding (_) Demonstrated understanding NCCN Guidelines Consulted: (x ) Yes ( ) No Recommendations Concordant with Guidelines: ( x ) Yes ( ) No Reason for Non-Concordance: n/a documented in this [id number] History of Present illness Narrative* Alden Escobar LPN - 09/24/2022 11:15 AM EDT Attempted to call pt. No answer. VM left with office and contact information and requested a call back. * Alden Escobar LPN - 09/24/2022 10:33 AM EDT Received a request from the pharmacy to complete a PA on pt lisinopril prescription sent today. Called and spoke with pharmacy to verify as pt has been on this medication however this was a dose increase from 5mg to 10mg. Pharmacy states insurance is only wanting to cover 1 tablet daily. Can a new script for 10mg be sent? documented in this [id number] Note* Addendum Note - Elo Ogden MD - 09/24/2022 10:46 AM EDTAddended by: ELO OGDEN on: 09/24/2022 10:46 AM Modules accepted: Orders [id number] Miscellaneous Notes* Addendum Note - Elo Ogden MD - 09/24/2022 10:46 AM EDTAddended by: ELO OGDEN on: 09/24/2022 10:46 AM Modules accepted: Orders * Assessment & Plan Note - Elo Ogden MD - 09/24/2022 8:36 AM EDTAssociated Problem(s): Invasive ductal carcinoma of breast, female, right (HCC) Diagnosed in 2019, stage IA right breast invasive ductal carcinoma, ER/AL +, HER2/marily negative. right breast lumpectomy and sentinel lymph node dissection. Exemestane and Prolia for suspicion of decreased bone density on current hormonal therapy on exemestane. dexa scan 2020 improving on current therapy * Assessment & Plan Note - Elo Ogden MD - 09/24/2022 8:35 AM EDTAssociated Problem(s): Healthcare maintenance Patient is up-to-date on mammogram screening as well as Pap smear both done this year. Diabetes care: Has had her eye exam updated with [facility] this year as well as foot exam done today. Up-to-date on immunizations, encouraged to take her biValent booster COVID- vaccine wants to stay with Moderna we will check with her local pharmacy. * Assessment & Plan Note - Elo Ogden MD - 09/24/2022 8:34 AM EDTAssociated Problem(s): Type 2 diabetes mellitus without complication, without long-term current useof insulin (HCC) Last A1c was 7.2 in July 2022 Compliant on metformin 500 mg , trying to lose weight Increasing metformin today to 500 mg twice daily along with adding Ozempic. Labs discussed -Foot exam done today and normal. -Ophthalmology check this year normal. No retinopathy concerns. Patient is on Lipitor 40 mg, LDL at goal * Assessment & Plan Note - Elo Ogden MD - 09/24/2022 8:20 AM EDTAssociated Problem(s): Essential hypertension Borderline high, increasing lisinopril to 10 mg today Continue to check it at home, goal should be less than 130/80. Salt restriction counseling was discussed today. documented in this [id number] Evaluation + Plan note* Assessment & Plan Note - Elo Ogden MD - 09/24/2022 8:36 AM EDTAssociated Problem(s): Invasive ductal carcinoma of breast, female, right (HCC) Diagnosed in 2018, stage IA right breast invasive ductal carcinoma, ER/AL +, HER2/marily negative. right breast lumpectomy and sentinel lymph node dissection. Exemestane and Prolia for suspicion of decreased bone density on current hormonal therapy on exemestane. dexa scan 2020 improving on current therapy [id number] Evaluation + Plan note* Assessment & Plan Note - Elo Ogden MD - 09/24/2022 8:35 AM EDTAssociated Problem(s): Healthcare maintenance Patient is up-to-date on mammogram screening as well as Pap smear both done this year. Diabetes care: Has had her eye exam updated with [facility] this year as well as foot exam done today. Up-to-date on immunizations, encouraged to take her biValent booster COVID- vaccine wants to stay with Moderna we will check with her local pharmacy. [id number] Evaluation + Plan note* Assessment & Plan Note - Elo Ogden MD - 09/24/2022 8:34 AM EDTAssociated Problem(s): Type 2 diabetes mellitus without complication, without long-term current useof insulin (HCC) Last A1c was 7.2 in July 2022 Compliant on metformin 500 mg , trying to lose weight Increasing metformin today to 500 mg twice daily along with adding Ozempic. Labs discussed -Foot exam done today and normal. -Ophthalmology check this year normal. No retinopathy concerns. Patient is on Lipitor 40 mg, LDL at goal [id number] Evaluation + Plan note* Assessment & Plan Note - Elo Ogdne MD - 09/24/2022 8:20 AM EDTAssociated Problem(s): Essential hypertension Borderline high, increasing lisinopril to 10 mg today Continue to check it at home, goal should be less than 130/80. Salt restriction counseling was discussed today. [id number] History of Present illness Narrative* Elo Ogden MD - 09/24/2022 7:40 AM EDT Chief Complaint Patient presents with Annual Exam Gap Closure (Health Maintenance) Foot Exam due on 10/12/2020 Urine Microalbumin due on 03/04/2022 HPI: Lyn Harry is a 58 year old lady with a history of diabetes, GERD, HLD, PCOS, and seasonal allergies and right breast carcinoma. Former patient of . Hypertension: 10 yrs chronic, has not been checking her blood pressure recently at home. Has lisinopril 5 mg thatshe takes at bedtime. Denies any headaches, blurry vision, tingling/numbness in extremities DM: 10 yrs or so, her latest hemoglobin A1c was at 7.2 on 08/10/22, she has been cutting back on the popdrinks. Compliant on metformin 500 mg. Has been trying to lose weight to help with her diabetes control and hopefully taken off metformin. Breast cancer: Diagnosed in 2019, stage IA right breast invasive ductal carcinoma, ER/AL +, HER2/marily negative. right breast lumpectomy and sentinel lymph node dissection. Exemestane and Prolia for suspicion of decreased bone density on current hormonal therapy on exemestane. Healthcare maintenance: Patient is up-to-date on mammogram screening as well as Pap smear both done this year. Diabetes care: Has had her eye exam updated with [facility] this year as well as foot exam done today. Up-to-date on immunizations, encouraged to take her biValent booster COVID- vaccine wants to stay with Moderna we will check with her local pharmacy. Past Medical History: Diagnosis Date Breast cancer (HCC) 01/31/2019 Right-Invasive mammary carcinoma Diabetes mellitus (HCC) Diabetes mellitus, type 2 (HCC) GERD (gastroesophageal reflux disease) Hyperlipidemia Hypertension Motion sickness PONV (postoperative nausea and vomiting) Seasonal allergies Trigger finger of right thumb 04/06/2021 Past Surgical History: Procedure Laterality Date APPENDECTOMY BREAST BIOPSY Right 2019 BREAST LUMPECTOMY Right 02/27/2019 BREAST LUMPECTOMY W/ SENTINEL NODE, NEEDLE LOC, POSS AX DIS Right 02/27/2019 Procedure: RIGHT BREAST LUMPECTOMY WITH SENTINEL NODE BIOPSY WITH NEEDLE LOCALIZATION AND POSSIBLE AXILLARY DISSECTION; Surgeon: Braden Gee MD; Location: Main OR; Service: General Surgery SECTION, CLASSIC 1996 CHOLECYSTECTOMY ROBOTIC XI N/A 08/12/2022 Procedure: CHOLECYSTECTOMY ROBOTIC XI; Surgeon: Braden Gee MD; Location: Main OR; Service: Gen-Robotics COLONOSCOPY 05/19/2017 Normal....Dr. Blackmon D & C WITH [facility] 1994 EXPLORATORY LAPAROTOMY for infertility MM WIRE NEEDLE LOCALIZATION RIGHT Right 02/27/2019 MM NEEDLE LOCALIZATION RIGHT 02/27/2019 MAMMOGRAPHY RADIATION Right 04/2019 trigger finger surg Right 05/2021 at [facility] BREAST BIOPSY RIGHT Right 01/31/2019 US BREAST BIOPSY RIGHT 01/31/2019, invasive mammary carcinoma US BREAST BIOPSY RIGHT Right 02/06/2019 US BREAST BIOPSY RIGHT Family History Problem Relation Age of Onset COPD Father Pancreatic cancer Paternal Grandmother Heart attack Paternal Grandfather Pancreatic cancer Maternal Uncle Lung cancer Paternal Aunt Social History Tobacco Use Smoking status: Never Smokeless tobacco: Never Vaping Use Vaping Use: Never used Substance Use Topics Alcohol use: Not Currently Comment: rarely Drug use: No Review of Systems Vitals: 09/24/22 0738 09/24/22 0739 BP: (!) 160/89 (!) 143/85 BP Location: Right arm Right arm Patient Position: Sitting Sitting BP Cuff Size: X-large Adult X-large Adult Pulse: 83 75 Resp: 16 Temp: 98 F (36.7 C) TempSrc: Temporal SpO2: 97% Weight: 91.6 kg (202 lb) Height: 5' 5" Estimated body mass index is 33.61 kg/m as calculated from the following: Height as of this encounter: 5' 5". Weight as of this encounter: 91.6 kg (202 lb). Physical Exam Constitutional: General: She is not in acute distress. Appearance: She is not ill-appearing. HENT: Head: Normocephalic and atraumatic. Right Ear: Tympanic membrane, ear canal and external ear normal. Left Ear: Tympanic membrane, ear canal and external ear normal. Nose: Nose normal. Mouth/Throat: Mouth: Mucous membranes are moist. Pharynx: Oropharynx is clear. No oropharyngeal exudate or posterior oropharyngeal erythema. Eyes: Extraocular Movements: Extraocular movements intact. Conjunctiva/sclera: Conjunctivae normal. Pupils: Pupils are equal, round, and reactive to light. Cardiovascular: Rate and Rhythm: Normal rate and regular rhythm. Pulses: Normal pulses. Heart sounds: Normal heart sounds. No murmur heard. No gallop. Pulmonary: Effort: Pulmonary effort is normal. Breath sounds: Normal breath sounds. No wheezing, rhonchi or rales. Chest: Chest wall: No tenderness. Abdominal: General: Abdomen is flat. Bowel sounds are normal. There is no distension. Palpations: Abdomen is soft. There is no mass. Tenderness: There is no abdominal tenderness. There is no right CVA tenderness, left CVA tenderness, guarding or rebound. Musculoskeletal: General: No tenderness. Normal range of motion. Cervical back: Normal range of motion and neck supple. No rigidity. No muscular tenderness. Right lower leg: No edema. Left lower leg: No edema. Lymphadenopathy: Cervical: No cervical adenopathy. Skin: General: Skin is warm. Findings: No erythema or rash. Comments: Regular foot exam with normal blood flow, strong pedal pulses 2/2. No skin changes or swelling. Monofilament testing normal bilaterally. Neurological: General: No focal deficit present. Mental Status: She is alert and oriented to person, place, and time. Sensory: No sensory deficit. Motor: No weakness. Gait: Gait normal. Psychiatric: Mood and Affect: Mood normal. Behavior: Behavior normal. Thought Content: Thought content normal. Judgment: Judgment normal. OARRS/NARxCHECK Report Received and Assessed: No data found Date controlled substance agreement signed: No data found Date of last drug screen: No data found Functional Assessment: No data found @Exam@ PHQ9: FREDY-7 Tobacco Counseling: Counseling given: Not Answered Patient's Medications New Prescriptions SEMAGLUTIDE (OZEMPIC) 0.25 MG OR 0.5 MG(2 MG/1.5 ML) PEN Inject 0.5 (one-half) mg under the skin every 7 days . Previous Medications EXEMESTANE (AROMASIN) 25 MG TABLET Take 1 (one) tablet (25 mg total) by mouth daily . OMEPRAZOLE (PRILOSEC) 40 MG CAPSULE Take 1 (one) capsule (40 mg total) by mouth every morning before breakfast . Modified Medications Modified Medication Previous Medication ATORVASTATIN (LIPITOR) 40 MG TABLET atorvastatin (LIPITOR) 40 MG tablet Take 1 (one) tablet (40 mg total) by mouth daily . Take 1 (one) tablet (40 mg total) by mouth daily. LISINOPRIL (PRINIVIL,ZESTRIL) 5 MG TABLET lisinopriL (PRINIVIL,ZESTRIL) 5 MG tablet Take 2 (two) tablets (10 mg total) by mouth at bedtime . Take 1 (one) tablet (5 mg total) by mouth daily . METFORMIN (GLUCOPHAGE XR) 500 MG 24 HR TABLET metFORMIN (Glucophage XR) 500 MG 24 hr tablet Take 1 (one) tablet (500 mg total) by mouth 2 (two) times a day with breakfast and lunch . Take 1 (one) tablet (500 mg total) by mouth daily with breakfast . Discontinued Medications No medications on file Health Maintenance Due Topic Date Due Pneumococcal Vaccine: Ped or At-Risk (2 - PCV) 11/30/2018 COVID-19 Vaccine (4 - Booster) 01/22/2022 Urine Microalbumin 03/04/2022 Wellness Visit 09/30/2022 Assessment & Plan Problem List Items Addressed This Visit Endocrine Type 2 diabetes mellitus without complication, without long-term current use of insulin ([facility]) - Primary Last A1c was 7.2 in July 2022 Compliant on metformin 500 mg , trying to lose weight Increasing metformin today to 500 mg twice daily along with adding Ozempic. Labs discussed -Foot exam done today and normal. -Ophthalmology check this year normal. No retinopathy concerns. Patient is on Lipitor 40 mg, LDL at goal Relevant Medications metFORMIN (Glucophage XR) 500 MG 24 hr tablet semaglutide (Ozempic) 0.25 mg or 0.5 mg(2 mg/1.5 mL) Pen atorvastatin (LIPITOR) 40 MG tablet Other Relevant Orders DIABETES FOOT EXAM (Completed) Cardiovascular and Mediastinum Essential hypertension Borderline high, increasing lisinopril to 10 mg today Continue to check it at home, goal should be less than 130/80. Salt restriction counseling was discussed today. Relevant Medications lisinopriL (PRINIVIL,ZESTRIL) 5 MG tablet Other Invasive ductal carcinoma of breast, female, right (HCC) Diagnosed in 2019, stage IA right breast invasive ductal carcinoma, ER/AL +, HER2/marily negative. right breast lumpectomy and sentinel lymph node dissection. Exemestane and Prolia for suspicion of decreased bone density on current hormonal therapy on exemestane. dexa scan 2020 improving on current therapy Healthcare maintenance Patient is up-to-date on mammogram screening as well as Pap smear both done this year. Diabetes care: Has had her eye exam updated with [facility] this year as well as foot exam done today. Up-to-date on immunizations, encouraged to take her biValent booster COVID- vaccine wants to stay with Moderna we will check with her local pharmacy. Return in about 3 months (around 12/25/2022) for Follow Up with A1c check. ELO OGDEN MD [facility] [address] [facility] [address] [facility] [id number] Dept: [phone] Depression Screening 08/10/2022 Little interest or pleasure in doing things 0 Feeling down, depressed, or hopeless 0 PHQ-2 Total Score 0 Trouble falling or staying asleep, or sleeping too much 1 Feeling tired or having little energy 1 Poor appetite or overeating 1 Feeling bad about yourself - or that you are a failure or have let yourself or your family down 0 Trouble concentrating on things, such as reading the newspaper or watching television 0 Moving or speaking so slowly that other people could have noticed. Or the opposite - being so fidgety or restless that you have been moving around a lot more than usual 0 Thoughts that you would be better off , or of hurting yourself in some way 0 PHQ-9 Total Score 3 If you checked off any problems, how difficult have these problems made it for you to do your work,take care of things at home, or get along with other people? Not difficult at all documented in this [id number] History of Present illness Narrative* Braden Gee MD - 08/26/2022 10:36 AM EDT [facility] PATIENT: Lyn Harry DATE / TIME: 08/26/22 10:36 AM POS: Office AGE: 62 y.o. : 1960 RACE: [1] SEX: female PCP: Elo Ogden MD REFERRAL: No ref. provider found TOS: SUBJECTIVE: 62 y.o. status post robotic assisted laparoscopic cholecystectomy on 08/12/2022. Returns today for follow-up. Denies any significant abdominal pain, nausea or vomiting. OBJECTIVE: BP (!) 159/84 Pulse 84 Wt 92.1 kg (203 lb) BMI 33.78 kg/m PE Constitutional: Well-developed and well-nourished. HENT: AT / NC, EOM normal, no icterus, pupils equal Neck: Normal range of motion. Neck supple. No thyromegaly present. Cardiovascular: Normal rate and regular rhythm. Pulmonary/Chest: Effort normal. No respiratory distress. No wheezes, rales or rhonchi. Abdominal: Soft. No distension. No tenderness. Incisions are intact with glue, no significant erythema fluctuance or drainage Musculoskeletal: Normal range of motion. No deformity. No edema. Neurological: Alert and oriented to person, place, and time. No cranial nerve deficit. Skin: Skin is warm and dry. Psychiatric: Normal mood and affect. Behavior is normal. Lab Results Component Value Date WBC 4.32 (L) 08/05/2022 RBC 4.20 08/05/2022 HGB 13.6 08/05/2022 HCT 37.8 08/05/2022 PLT 160 08/05/2022 No results found for: AMYLASE No results found for: LIPASE IMAGING: PATHOLOGY: Final Diagnosis A. Gallbladder, cholecystectomy: Mild chronic cholecystitis and cholelithiasis. ASSESSMENT: PLAN: Patient Active Problem List Diagnosis Gastroesophageal reflux disease without esophagitis Seasonal allergies Vitamin D deficiency PCO (polycystic ovaries) Non-alcoholic fatty liver disease Invasive ductal carcinoma of breast, female, right (HCC) Essential hypertension Type 2 diabetes mellitus without complication, without long-term current use of insulin (HCC) Mixed hyperlipidemia Hypercalcemia Calculus of gallbladder without cholecystitis without obstruction Diarrhea Nausea and vomiting Obesity (BMI 30.0-34.9) Pre-op examination Pathology reviewed with the patient No evidence of surgical site infection Encouraged her lifting restriction of 20 pounds for total of 3 weeks Patient can return to the office if any problems or documented in this [id number] Evaluation + Plan note* Assessment & Plan Note - Elo Ogden MD - 08/10/2022 10:51 PM EDTAssociated Problem(s): Invasive ductal carcinoma of breast, female, right (HCC) Diagnosed in 2019, stage IA right breast invasive ductal carcinoma, ER/AL +, HER2/marily negative. right breast lumpectomy and sentinel lymph node dissection. Exemestane and Prolia for suspicion of decreased bone density on current hormonal therapy on exemestane. dexa scan 2020 improving on current therapy [id number] Miscellaneous Notes* Assessment & Plan Note - Elo Ogden MD - 08/10/2022 10:51 PM EDTAssociated Problem(s): Invasive ductal carcinoma of breast, female, right (HCC) Diagnosed in 2019, stage IA right breast invasive ductal carcinoma, ER/AL +, HER2/marily negative. right breast lumpectomy and sentinel lymph node dissection. Exemestane and Prolia for suspicion of decreased bone density on current hormonal therapy on exemestane. dexa scan 2020 improving on current therapy * Assessment & Plan Note - Elo Ogden MD - 08/10/2022 10:50 PM EDTAssociated Problem(s): Essential hypertension Controlled on lisinopril 5 mg Continue to monitor Follow up in one month, salt restriction discussed * Assessment & Plan Note - Elo Ogden MD - 08/10/2022 10:48 PM EDTAssociated Problem(s): Type 2 diabetes mellitus without complication, without long-term current useof insulin (HCC) Last A1c was 7.0 Compliant on metformin 500 mg , trying to lose weight Considering direct support staff member consult Discussed possibility of adding Ozempic pending surgery recovery and any recurrent biliary concerns Labs discussed * Assessment & Plan Note - Elo Ogden MD - 08/10/2022 10:46 PM EDTAssociated Problem(s): Calculus of gallbladder without cholecystitis without obstruction Cholelithiasis calcified stone near te neck of GB, agreeable to cholecystectomy scheduled on 08/12. Patient had preop eval ready for the surgery with . documented in this [id number] Evaluation + Plan note* Assessment & Plan Note - Elo Ogden MD - 08/10/2022 10:50 PM EDTAssociated Problem(s): Essential hypertension Controlled on lisinopril 5 mg Continue to monitor Follow up in one month, salt restriction discussed [id number] Evaluation + Plan note* Assessment & Plan Note - Elo Ogden MD - 08/10/2022 10:48 PM EDTAssociated Problem(s): Type 2 diabetes mellitus without complication, without long-term current useof insulin (HCC) Last A1c was 7.0 Compliant on metformin 500 mg , trying to lose weight Considering direct support staff member consult Discussed possibility of adding Ozempic pending surgery recovery and any recurrent biliary concerns Labs discussed [id number] Evaluation + Plan note* Assessment & Plan Note - Elo Ogden MD - 08/10/2022 10:46 PM EDTAssociated Problem(s): Calculus of gallbladder without cholecystitis without obstruction Cholelithiasis calcified stone near te neck of GB, agreeable to cholecystectomy scheduled on 08/12. Patient had preop eval ready for the surgery with . [id number] History of Present illness Narrative* Elo Ogden MD - 08/10/2022 2:41 PM EDT Chief Complaint Patient presents with Establish Care Labs HPI: Lyn Harry is a 58 year old lady with a history of diabetes, GERD, HLD, PCOS, and seasonal allergies and right breast carcinoma. Former patient of Maya Mendez. Hypertension: 10 yrs chronic, home BP readings mostly in the range of 130-140. DM: 10 yrs or so, her latest hemoglobin A1c was at 7.0 last check with . she has been cutting back on the pop drinks. Compliant on metformin 500 mg Symptomatic cholelithiasis: Presented to the ER with acute abdominal pain, CT abdomen and pelvis Showing Cholelithiasis without acute cholecystitis calcified stone near te neck of GB, agreeable tocholecystectomy scheduled on 08/12. Breast cancer: Diagnosed in 2019, stage IA right breast invasive ductal carcinoma, ER/AL +, HER2/marily negative. right breast lumpectomy and sentinel lymph node dissection. Exemestane and Prolia for suspicion of decreased bone density on current hormonal therapy on exemestane. Past Medical History: Diagnosis Date Breast cancer (HCC) 01/31/2019 Right-Invasive mammary carcinoma Diabetes mellitus (HCC) Diabetes mellitus, type 2 (HCC) GERD (gastroesophageal reflux disease) Hyperlipidemia Hypertension Motion sickness PONV (postoperative nausea and vomiting) Seasonal allergies Trigger finger of right thumb 04/06/2021 Past Surgical History: Procedure Laterality Date APPENDECTOMY BREAST BIOPSY Right 2019 BREAST LUMPECTOMY Right 02/27/2019 BREAST LUMPECTOMY W/ SENTINEL NODE, NEEDLE LOC, POSS AX DIS Right 02/27/2019 Procedure: RIGHT BREAST LUMPECTOMY WITH SENTINEL NODE BIOPSY WITH NEEDLE LOCALIZATION AND POSSIBLE AXILLARY DISSECTION; Surgeon: Braden Gee MD; Location: Main OR; Service: General Surgery SECTION, CLASSIC 1996 COLONOSCOPY 05/19/2017 Normal....Dr. Blackmon D & C [place] 1994 EXPLORATORY LAPAROTOMY for infertility MM WIRE NEEDLE LOCALIZATION RIGHT Right 02/27/2019 MM NEEDLE LOCALIZATION RIGHT 02/27/2019 MAMMOGRAPHY RADIATION Right 04/2019 trigger finger surg Right 05/2021 at [facility] BREAST BIOPSY RIGHT Right 01/31/2019 US BREAST BIOPSY RIGHT 01/31/2019, invasive mammary carcinoma US BREAST BIOPSY RIGHT Right 02/06/2019 US BREAST BIOPSY RIGHT Family History Problem Relation Age of Onset COPD Father Pancreatic cancer Paternal Grandmother Heart attack Paternal Grandfather Pancreatic cancer Maternal Uncle Lung cancer Paternal Aunt Social History Tobacco Use Smoking status: Never Smokeless tobacco: Never Vaping Use Vaping Use: Never used Substance Use Topics Alcohol use: Not Currently Comment: rarely Drug use: No Review of Systems Vitals: 08/10/22 1417 BP: 134/87 BP Location: Left arm Patient Position: Sitting BP Cuff Size: Adult Pulse: 74 Resp: 16 Temp: 98.2 F (36.8 C) TempSrc: Temporal SpO2: 97% Weight: 91.6 kg (202 lb) Height: 5' 5" Estimated body mass index is 33.61 kg/m as calculated from the following: Height as of this encounter: 5' 5". Weight as of this encounter: 91.6 kg (202 lb). Physical Exam Constitutional: General: She is not in acute distress. Appearance: She is not ill-appearing. HENT: Head: Normocephalic and atraumatic. Eyes: Extraocular Movements: Extraocular movements intact. Conjunctiva/sclera: Conjunctivae normal. Pupils: Pupils are equal, round, and reactive to light. Cardiovascular: Rate and Rhythm: Normal rate and regular rhythm. Pulses: Normal pulses. Heart sounds: Normal heart sounds. No murmur heard. No gallop. Pulmonary: Effort: Pulmonary effort is normal. Breath sounds: Normal breath sounds. No wheezing, rhonchi or rales. Chest: Chest wall: No tenderness. Abdominal: General: Abdomen is flat. Bowel sounds are normal. There is no distension. Palpations: Abdomen is soft. There is no mass. Tenderness: There is no abdominal tenderness. There is no right CVA tenderness, left CVA tenderness, guarding or rebound. Musculoskeletal: General: No tenderness. Normal range of motion. Cervical back: Normal range of motion and neck supple. No rigidity. No muscular tenderness. Right lower leg: No edema. Left lower leg: No edema. Lymphadenopathy: Cervical: No cervical adenopathy. Skin: General: Skin is warm. Findings: No erythema or rash. Neurological: General: No focal deficit present. Mental Status: She is alert and oriented to person, place, and time. Sensory: No sensory deficit. Motor: No weakness. Gait: Gait normal. Psychiatric: Mood and Affect: Mood normal. Behavior: Behavior normal. Thought Content: Thought content normal. Judgment: Judgment normal. OARRS/NARxCHECK Report Received and Assessed: No data found Date controlled substance agreement signed: No data found Date of last drug screen: No data found Functional Assessment: No data found @Exam@ PHQ9: Over the last 2 weeks, how often have you been bothered by any of the following problems? Little interest or pleasure in doing things: Not at all Feeling down, depressed, or hopeless: Not at all PHQ-2 Total Score: 0 Trouble falling or staying asleep, or sleeping too much: Several days Feeling tired or having little energy: Several days Poor appetite or overeating: Several days Feeling bad about yourself - or that you are a failure or have let yourself or your family down: Not at all Trouble concentrating on things, such as reading the newspaper or watching television: Not at all Moving or speaking so slowly that other people could have noticed. Or the opposite - being so fidgety or restless that you have been moving around a lot more than usual: Not at all Thoughts that you would be better off , or of hurting yourself in some way: Not at all PHQ-9 Total Score: 3 If you checked off any problems, how difficult have these problems made it for you to do your work,take care of things at home, or get along with other people?: Not difficult at all FREDY-7 Over the last 2 weeks, how often have you been bothered by the following problems? Feeling nervous, anxious or on edge: Not at all Not being able to stop or control worrying: Not at all Worrying too much about different things: Not at all Trouble relaxing: Not at all Being so restless that it is hard to sit still: Not at all Becoming easily annoyed or irritable: Not at all Feeling afraid as if something awful might happen: Not at all FREDY-7 Score: 0 Tobacco Counseling: Counseling given: Not Answered Patient's Medications New Prescriptions No medications on file Previous Medications ATORVASTATIN (LIPITOR) 40 MG TABLET Take 1 (one) tablet (40 mg total) by mouth daily . EXEMESTANE (AROMASIN) 25 MG TABLET Take 1 (one) tablet (25 mg total) by mouth daily . LISINOPRIL (PRINIVIL,ZESTRIL) 5 MG TABLET Take 1 (one) tablet (5 mg total) by mouth daily . METFORMIN (GLUCOPHAGE XR) 500 MG 24 HR TABLET Take 1 (one) tablet (500 mg total) by mouth daily with breakfast . METOCLOPRAMIDE (REGLAN) 5 MG TABLET Take 1 (one) tablet (5 mg total) by mouth every 8 (eight) hoursas needed (for nausea/vomiting) . OMEPRAZOLE (PRILOSEC) 40 MG CAPSULE Take 1 (one) capsule (40 mg total) by mouth every morning before breakfast . Modified Medications No medications on file Discontinued Medications No medications on file Health Maintenance Due Topic Date Due Pneumococcal Vaccine: Ped or At-Risk (2 - PCV) 11/30/2018 Foot Exam 10/12/2020 COVID-19 Vaccine (4 - Booster) 02/19/2022 Urine Microalbumin 03/04/2022 Sequential Influenza Vaccine (1) 07/29/2022 A1C 07/30/2022 Assessment & Plan Problem List Items Addressed This Visit Digestive Calculus of gallbladder without cholecystitis without obstruction Cholelithiasis calcified stone near te neck of GB, agreeable to cholecystectomy scheduled on 08/12. Patient had preop eval ready for the surgery with . Endocrine PCO (polycystic ovaries) Type 2 diabetes mellitus without complication, without long-term current use of insulin (HCC) - Primary Last A1c was 7.0 Compliant on metformin 500 mg , trying to lose weight Considering direct support staff member consult Discussed possibility of adding Ozempic pending surgery recovery and any recurrent biliary concerns Labs discussed Relevant Orders Hemoglobin A1c Cardiovascular and Mediastinum Essential hypertension Controlled on lisinopril 5 mg Continue to monitor Follow up in one month, salt restriction discussed Other Invasive ductal carcinoma of breast, female, right (HCC) Diagnosed in 2019, stage IA right breast invasive ductal carcinoma, ER/AL +, HER2/marily negative. right breast lumpectomy and sentinel lymph node dissection. Exemestane and Prolia for suspicion of decreased bone density on current hormonal therapy on exemestane. dexa scan 2020 improving on current therapy Relevant Orders Vitamin D, Total, 25-OH (Completed) Return in about 4 weeks (around 09/07/2022) for Annual Exam. ELO OGDEN MD [facility] [address] [facility] [address] [facility] [id number] Dept: [phone] Depression Screening 08/10/2022 Little interest or pleasure in doing things 0 Feeling down, depressed, or hopeless 0 PHQ-2 Total Score 0 Trouble falling or staying asleep, or sleeping too much 1 Feeling tired or having little energy 1 Poor appetite or overeating 1 Feeling bad about yourself - or that you are a failure or have let yourself or your family down 0 Trouble concentrating on things, such as reading the newspaper or watching television 0 Moving or speaking so slowly that other people could have noticed. Or the opposite - being so fidgety or restless that you have been moving around a lot more than usual 0 Thoughts that you would be better off , or of hurting yourself in some way 0 PHQ-9 Total Score 3 If you checked off any problems, how difficult have these problems made it for you to do your work,take care of things at home, or get along with other people? Not difficult at all documented in this [id number] History of Present illness Narrative* Braden Gee MD - 07/30/2022 2:29 PM EDT [facility] PATIENT: Lyn Harry DATE / TIME: 07/30/22 2:29 PM POS: Office AGE: 62 y.o. : 1960 RACE: [1] SEX: female PCP: Dereje Trejo MD REFERRAL: Dereje Trejo* HISTORY OF PRESENT ILLNESS CC / Reason for Consult: Epigastric and right upper quadrant pain, nausea and vomiting HPI: 62-year-old female with history of breast cancer diabetes hyperlipidemia hypertension referredto my office after recent ER visit with complaints of epigastric/right upper quadrant pain associated with nausea and vomiting. Patient reports that for the last few months she has been having these episodes that wake her up in the middle of the night. Associated with nausea and emesis. Was seen inthe emergency room where a CT abdomen pelvis was performed that showed a calcified stone near the neck of the gallbladder. PAST MEDICAL / SURGICAL HISTORY Past Medical History: Diagnosis Date Breast cancer (HCC) 01/31/2019 Right-Invasive mammary carcinoma Diabetes mellitus (HCC) GERD (gastroesophageal reflux disease) Hyperlipidemia Hypertension Seasonal allergies Trigger finger of right thumb 04/06/2021 Past Surgical History: Procedure Laterality Date APPENDECTOMY BREAST BIOPSY Right 2019 BREAST LUMPECTOMY Right 02/27/2019 BREAST LUMPECTOMY W/ SENTINEL NODE, NEEDLE LOC, POSS AX DIS Right 02/27/2019 Procedure: RIGHT BREAST LUMPECTOMY WITH SENTINEL NODE BIOPSY WITH NEEDLE LOCALIZATION AND POSSIBLE AXILLARY DISSECTION; Surgeon: Braden Gee MD; Location: Main OR; Service: General Surgery SECTION, CLASSIC 1996 COLONOSCOPY 05/19/2017 Normal....Dr. Blackmon D & C WITH [place] 1994 EXPLORATORY LAPAROTOMY for infertility MM WIRE NEEDLE LOCALIZATION RIGHT Right 02/27/2019 MM NEEDLE LOCALIZATION RIGHT 02/27/2019 MAMMOGRAPHY RADIATION Right 04/2019 trigger finger surg Right 05/2021 at [facility] US BREAST BIOPSY RIGHT Right 01/31/2019 US BREAST BIOPSY RIGHT 01/31/2019, invasive mammary carcinoma US BREAST BIOPSY RIGHT Right 02/06/2019 US BREAST BIOPSY RIGHT FAMILY HISTORY Family History Problem Relation Age of Onset Heart attack Paternal Grandfather Pancreatic cancer Paternal Grandmother Lung cancer Paternal Aunt Pancreatic cancer Maternal Uncle SOCIAL HISTORY Data Unavailable Social History Tobacco Use Smoking Status Never Smokeless Tobacco Never Social History Substance and Sexual Activity Alcohol Use Not Currently Comment: SOCIALLY Social History Substance and Sexual Activity Drug Use No MEDICATIONS: Patient has a current medication list which includes the following prescription(s): atorvastatin, ergocalciferol, exemestane, fluticasone propionate, lisinopril, metformin, metoclopramide, and omeprazole. ALLERGIES: Allergies Allergen Reactions Penicillins Swelling Strong family history of penicillin allergy. REVIEW OF SYSTEMS Pertinent positives and negatives are listed in HPI, PMSH, SH, ALL above and in "Details" below. The following systems were reviewed: [] Const (fevers, chills, wt. loss, fatigue) [] CV (HTN, CP, QUINN, edema, DVT) [] Resp (SOB, pleurisy, asthma, apnea) [] GI (N, V, D, C, M, abd pain, appetite) [] Musc (back pain, joint stiffness, gout) [] Neuro (seizures, syncope, paralysis) [] Psych (depression, anxiety) [] Endo (hot/cold intol, polyuria[DM]) [] Hem/Lymph (Anemia, LA, bleeding) [] Allerg/Immun (seasonal, immuniz) [] Eyes (diplopia, cataracts) [] ENT/mouth (dysphagia, epistaxis) [] (dysuria, hematuria) [] Skin/Breast (moles, rash, lumps, nipple changes) Details: PHYSICAL EXAM BP 127/81 (BP Location: Left arm, Patient Position: Sitting, BP Cuff Size: X- large Adult) Pulse 83 Ht 5' 5" Wt 92 kg (202 lb 14.4 oz) SpO2 96% BMI 33.76 kg/m Details: Physical Exam Constitutional: Appearance: Normal appearance. HENT: Head: Normocephalic. Nose: Nose normal. Eyes: Pupils: Pupils are equal, round, and reactive to light. Cardiovascular: Rate and Rhythm: Normal rate. Pulmonary: Effort: Pulmonary effort is normal. Abdominal: General: There is no distension. Palpations: Abdomen is soft. There is no mass. Musculoskeletal: General: Normal range of motion. Cervical back: Normal range of motion. Skin: General: Skin is warm. Neurological: General: No focal deficit present. Mental Status: She is alert. Psychiatric: Mood and Affect: Mood normal. Thought Content: Thought content normal. Judgment: Judgment normal. LABS / X-RAYS Details: Laboratory Lab Results Component Value Date WBC 9.87 07/12/2022 RBC 4.57 07/12/2022 HGB 14.5 07/12/2022 HCT 40.7 07/12/2022 PLT 169 07/12/2022 No results found for: AMYLASE No results found for: LIPASE ASSESSMENT AND PLAN: 62-year-old female history of diabetes, breast cancer, hyperlipidemia and hypertension referred forsymptomatic cholelithiasis Risk and possible complications of robotic assisted laparoscopic cholecystectomy were discussed Consent was signed 1. Nausea and vomiting, unspecified vomiting type Ambulatory referral to General Surgery Case Request Operating Room: CHOLECYSTECTOMY ROBOTIC XI Vital signs CBC Comprehensive Metabolic Panel ECG 12 Lead Height and weight Vital signs Surgical site prep Skin; Chlorhexidine Gluconate Insert peripheral IV lactated Ringers infusion Intermittent pneumatic compression device Bilat LE clindamycin (CLEOCIN) 900 mg in sodium chloride 0.9 % (NS) 50 mL IVPB 2. Diarrhea, unspecified type Ambulatory referral to General Surgery Case Request Operating Room: CHOLECYSTECTOMY ROBOTIC XI Vital signs CBC Comprehensive Metabolic Panel ECG 12 Lead Height and weight Vital signs Surgical site prep Skin; Chlorhexidine Gluconate Insert peripheral IV lactated Ringers infusion Intermittent pneumatic compression device Bilat LE clindamycin (CLEOCIN) 900 mg in sodium chloride 0.9 % (NS) 50 mL IVPB 3. Calculus of gallbladder without cholecystitis without obstruction Ambulatory referral to GeneralSurgery Case Request Operating Room: CHOLECYSTECTOMY ROBOTIC XI Vital signs CBC Comprehensive Metabolic Panel ECG 12 Lead Height and weight Vital signs Surgical site prep Skin; Chlorhexidine Gluconate Insert peripheral IV lactated Ringers infusion Intermittent pneumatic compression device Bilat LE clindamycin (CLEOCIN) 900 mg in sodium chloride 0.9 % (NS) 50 mL IVPB Total time 20 minutes greater than 50% spent [id number] with the patient obtaining a history, performing exam explaining the procedure obtaining consent coordinating care Anticip Anesthesia: Follow-up: ICD: No primary diagnosis found. [] Thank you for the privilege of allowing me to participate in the care of Lyn Harry. documented in this [id number] History of Present illness Narrative* Dereje Trejo MD - 07/19/2022 5:57 PM EDT Images from the original note were not included. Lyn Harry 1960 [id number] HPI: Patient was here today for an acute visit as a follow-up from her recent ER visit complaining of epigastric pain. Patient states today that she has been experiencing intermittent episodic symptoms of moderate epigastric abdominal pain associated with nausea and vomiting and also has intermittent symptoms of diarrhea with liquid stools. No known specific triggering or aggravating factors. Patient has had multiple episodes of abdominal pain with nausea and vomiting in the past few weeks and hence she went to the hospital ER approximately a week ago, has undergone lab tests and also a CT of the abdomen and pelvis which was reported as: Mild background diffuse hepatic steatosis. 2. Small hepatic hemangiomas involving the lateral segment of the left hepatic lobe and posterior segment right hepatic lobe. Lobulated exophytic hemangioma off the medial segment of the left hepaticlobe, overall mildly decreased in size. 3. Cholelithiasis without acute cholecystitis 4. Mild constipation. Mild colonic diverticular disease is noted. The appendix appears to be surgically absent. No acute intraabdominal process otherwise noted. 5. Mild circumferential thickened appearance of the urinary bladder wall presumably from partial distention. Cystitis cannot be excluded. Correlate with urinalysis if indicated. 6. Small umbilical and left inguinal hernias contain fat without bowel. Patient was advised that her symptoms could possibly be secondary to gallstones and was to follow-up here. Patient has not had any further episodic symptoms since after the ER discharge. She states today that she also has been experiencing intermittent symptoms of significant diarrhea with liquid stools in the past couple of months. But patient also states today that she has a known remote history of irritable bowel syndrome and used to have a lot of symptoms in the past but has been quite asymptomatic for the past several years. Patient Active Problem List Diagnosis Gastroesophageal reflux disease without esophagitis Seasonal allergies Vitamin D deficiency PCO (polycystic ovaries) Non-alcoholic fatty liver disease Invasive ductal carcinoma of breast, female, right (HCC) Essential hypertension Type 2 diabetes mellitus without complication, without long-term current use of insulin (HCC) Mixed hyperlipidemia Hypercalcemia Calculus of gallbladder without cholecystitis without obstruction Diarrhea Nausea and vomiting Past Medical History: Diagnosis Date Breast cancer (HCC) 01/31/2019 Right-Invasive mammary carcinoma Diabetes mellitus (HCC) GERD (gastroesophageal reflux disease) Hyperlipidemia Hypertension Seasonal allergies Trigger finger of right thumb 04/06/2021 Past Surgical History: Procedure Laterality Date APPENDECTOMY BREAST BIOPSY Right 2019 BREAST LUMPECTOMY Right 02/27/2019 BREAST LUMPECTOMY W/ SENTINEL NODE, NEEDLE LOC, POSS AX DIS Right 02/27/2019 Procedure: RIGHT BREAST LUMPECTOMY WITH SENTINEL NODE BIOPSY WITH NEEDLE LOCALIZATION AND POSSIBLE AXILLARY DISSECTION; Surgeon: Braden Gee MD; Location: [facility]; Service: General Surgery SECTION, CLASSIC 1996 COLONOSCOPY 05/19/2017 Normal....Dr. Blackmon D & C WITH LEEP 1994 EXPLORATORY LAPAROTOMY for infertility MM WIRE NEEDLE LOCALIZATION RIGHT Right 02/27/2019 MM NEEDLE LOCALIZATION RIGHT 02/27/2019 MAMMOGRAPHY RADIATION Right 04/2019 trigger finger surg Right 05/2021 at [facility] US BREAST BIOPSY RIGHT Right 01/31/2019 US BREAST BIOPSY RIGHT 01/31/2019, invasive mammary carcinoma US BREAST BIOPSY RIGHT Right 02/06/2019 US BREAST BIOPSY RIGHT Social History Socioeconomic History Marital status: Tobacco Use Smoking status: Never Smokeless tobacco: Never Vaping Use Vaping Use: Never used Substance and Sexual Activity Alcohol use: Not Currently Comment: SOCIALLY Drug use: No Sexual activity: Yes Partners: Male control/protection: Post-menopausal Social Determinants of Health Financial Resource Strain: Low Risk Difficulty of Paying Living Expenses: Not hard at all Food Insecurity: No Food Insecurity Worried About Running Out of Food in the Last Year: Never true Ran Out of Food in the Last Year: Never true Transportation Needs: No Transportation Needs Lack of Transportation (Medical): No Lack of Transportation (Non-Medical): No Family History Problem Relation Age of Onset Heart attack Paternal Grandfather Pancreatic cancer Paternal Grandmother Lung cancer Paternal Aunt Pancreatic cancer Maternal Uncle Review of Systems Constitutional: Negative for chills, diaphoresis, fatigue, fever and unexpected weight change. Respiratory: Negative for cough, shortness of breath and wheezing. Cardiovascular: Negative for chest pain, palpitations and leg swelling. Gastrointestinal: Negative for abdominal distention, blood in stool and constipation. Neurological: Negative for dizziness and headaches. Physical Exam: Vitals: 07/19/22 1436 BP: 124/76 BP Location: Right arm Patient Position: Sitting BP Cuff Size: Adult Pulse: 81 Resp: 14 Temp: 98.6 F (37 C) TempSrc: Infrared SpO2: 95% Weight: 92.2 kg (203 lb 3.2 oz) Height: 5' 5" Physical Exam Constitutional: General: She is not in acute distress. Cardiovascular: Rate and Rhythm: Normal rate and regular rhythm. Pulmonary: Effort: Pulmonary effort is normal. No respiratory distress. Breath sounds: Normal breath sounds. No wheezing or rales. Abdominal: General: Bowel sounds are normal. There is no distension. Palpations: Abdomen is soft. Tenderness: There is no abdominal tenderness. Assessment & Plan: 1. Nausea and vomiting, unspecified vomiting type Ambulatory referral to General Surgery 2. Diarrhea, unspecified type Ambulatory referral to General Surgery Stool/GI PCR Panel 3. Calculus of gallbladder without cholecystitis without obstruction Ambulatory referral to [facility] Epigastric abdominal pain, nausea/vomiting and diarrhea: Patient seems to have persistent intermittent symptoms of epigastric abdominal pain, nausea with vomiting and also intermittent diarrhea. She does seem to have some gallbladder stones on her recent CT scan but I am not sure if this is what iscontributing to her symptoms. She possibly may have irritable bowel syndrome causing intermittent diarrhea. Her nausea/vomiting could be secondary to suboptimally controlled GERD as well. I have advised her that she may need further evaluation with possibly an EGD and colonoscopy and may also need a cholecystectomy. She was referred to general surgery today. I have also increased the dose of Prilo sec to 40 mg daily and new prescription was given today. Ordered stool test to rule out any infectious pathology. Patient states today that she will be switching her primary care to another [facility] provider [facility], nearer to her home. She already has a scheduled appointment with Dr. Ogden on August 10. I have advised her to follow-up with her new primary care provider as scheduled and discuss withher about response to the treatment and further evaluation etc. I wished her good luck with her health and advised that she may continue to reach out to us for any other healthcare issues until she establishes with a new PCP. Return if symptoms worsen or fail to improve. Patient education & instructions given for: Advised patient about possible common adverse-effects from the medications, but also recommended to review the medication information package inserts for complete list of adverse effects/contraindications, drug interactions etc., before starting any new medication. Patient was also advised to immediately discontinue the medication and notify us or go to a nearby ER if experiencing any severe adverse affects from the medications. All the addressed problems were discussed with the patient and advice given to call with any concerns or return to theoffice or go to a nearby ER if the symptoms do not improve or worsen or new symptoms develop. If any referrals were placed or tests ordered at today's visit, the patient was instructed to call the office if they are not notified about the scheduling of referral or tests, within 2 weeks of today's visit. Health maintenance/preventive screening reviewed / ordered: Offered age- appropriate preventive services and screening. Please note: Portions of this chart may have been created with [employer] voice recognition software. Occasional wrong-word or "sound-like" substitutions may have occurred due to inherent limitations of the voice recognition software. Please read the chart carefully and recognize, using context, where the substitutions have occurred. documented in this [id number] History of Present illness Narrative* Sebas Lee CNP - 06/08/2022 7:19 PM EDT Images from the original note were not included. Patient Name: [facility] Location: Lyn Harry [address] [place] [id number] Date Of : Date Of Visit: 1960 06/08/2022 MRN# Provider: [id number] Sebas Lee CNP Chief Complaint Patient presents with Sore Throat Pt with c/o SORE THROAT, Left ear fullness/pain x 1 week Assessment & Plan 1. Non-recurrent acute suppurative otitis media of left ear without spontaneous rupture of tympanicmembrane 2. Elevated blood pressure reading with diagnosis of hypertension No follow-ups on file. Medical Decision Making Do not recommend decongestants as her BP is already elevated. We discussed taking Laverne which sheis on and ading Flonase. We reviewed her allergies and she is aware of cross over sensitivity with Omnicef. She state that her allergy to PCN was from childhood Additional Clinical Comments Discussed over the counter medications for symptomatic management and side effects of medications. Recommended taking all medications with food and to stop medications if they develop any signs of anallergic reaction. Educated patient and/or guardian about signs and symptoms that would warrant further immediate evaluation. Recommended that they should return to urgent care, make an appointment with their family physician, or go to the emergency room if symptoms persist or get acutely worse. Recommended follow upwithin the next week with their PCP or to get established with a PCP soon in order to follow up appropriately. Subjective 62 y.o. female presents with Sore Throat (Pt with c/o SORE THROAT, Left ear fullness/pain x 1 week) Patient is here for sore throat and left ear pain for the past few days. No documented fevers or chills. She has no rashes. She does voice that she is taking laverne. Has nasal congestion and a lot of mucous. Sore Throat Review Of Systems Review of Systems HENT: Positive for sore throat. Medical History Past Medical History: Diagnosis Date Breast cancer (HCC) 01/31/2019 Right-Invasive mammary carcinoma Diabetes mellitus (HCC) GERD (gastroesophageal reflux disease) Hyperlipidemia Hypertension Seasonal allergies Trigger finger of right thumb 04/06/2021 Past Surgical History: Procedure Laterality Date APPENDECTOMY BREAST BIOPSY Right 2019 BREAST LUMPECTOMY Right 02/27/2019 BREAST LUMPECTOMY W/ SENTINEL NODE, NEEDLE LOC, POSS AX DIS Right 02/27/2019 Procedure: RIGHT BREAST LUMPECTOMY WITH SENTINEL NODE BIOPSY WITH NEEDLE LOCALIZATION AND POSSIBLE AXILLARY DISSECTION; Surgeon: Braden Gee MD; Location: [facility] OR; Service: General Surgery SECTION, CLASSIC 1996 COLONOSCOPY 05/19/2017 Normal....Dr. Blackmon D & C WITH [facility] 1994 EXPLORATORY LAPAROTOMY for infertility MM WIRE NEEDLE LOCALIZATION RIGHT Right 02/27/2019 MM NEEDLE LOCALIZATION RIGHT 02/27/2019 MAMMOGRAPHY RADIATION Right 04/2019 trigger finger surg Right 05/2021 at [facility] BREAST BIOPSY RIGHT Right 01/31/2019 US BREAST BIOPSY RIGHT 01/31/2019, invasive mammary carcinoma US BREAST BIOPSY RIGHT Right 02/06/2019 US BREAST BIOPSY RIGHT Patient Active Problem List Diagnosis Gastroesophageal reflux disease without esophagitis Seasonal allergies Vitamin D deficiency PCO (polycystic ovaries) Non-alcoholic fatty liver disease Invasive ductal carcinoma of breast, female, right (HCC) Essential hypertension Type 2 diabetes mellitus without complication, without long-term current use of insulin (HCC) Mixed hyperlipidemia Hypercalcemia Social History Social History Tobacco Use Smoking status: Never Smokeless tobacco: Never Vaping Use Vaping Use: Never used Substance Use Topics Alcohol use: Not Currently Comment: SOCIALLY Drug use: No Family History Family History Problem Relation Age of Onset Heart attack Paternal Grandfather Pancreatic cancer Paternal Grandmother Lung cancer Paternal Aunt Pancreatic cancer Maternal Uncle Objective Physical Exam BP (!) 147/84 Comment: .....recheck als Pulse 87 Temp 98.6 F (37 C) (Infrared) Resp 14 Wt 92.5 kg (204 lb) SpO2 96% BMI 33.95 kg/m Vision/Hearing Exam:No results found. Physical Exam Vitals and nursing note reviewed. Constitutional: Appearance: Normal appearance. HENT: Head: Normocephalic. Right Ear: Tympanic membrane, ear canal and external ear normal. Left Ear: A middle ear effusion is present. Tympanic membrane is erythematous. Nose: Nose normal. Mouth/Throat: Lips: Blakely. Mouth: Mucous membranes are moist. Tongue: No lesions. Tongue does not deviate from midline. Palate: No mass and lesions. Pharynx: Oropharynx is clear. Uvula midline. No pharyngeal swelling, oropharyngeal exudate, posterior oropharyngeal erythema or uvula swelling. Tonsils: No tonsillar exudate or tonsillar abscesses. Cardiovascular: Rate and Rhythm: Normal rate and regular rhythm. Heart sounds: Normal heart sounds, S1 normal and S2 normal. Musculoskeletal: Cervical back: Full passive range of motion without pain and normal range of motion. Lymphadenopathy: Cervical: No cervical adenopathy. Neurological: Mental Status: She is alert. Procedure Notes Procedures Results No results found for this or any previous visit (from the past 168 hour(s)). No orders to display Orders Placed This Visit No orders of the defined types were placed in this encounter. Medication List At End Of Visit Current Outpatient Medications Medication Sig Dispense Refill atorvastatin (LIPITOR) 40 MG tablet Take 1 (one) tablet (40 mg total) by mouth daily . 90 tablet 1 ergocalciferol (ERGOCALCIFEROL) 1,250 mcg (50,000 unit) capsule Take 1 (one) capsule (50,000 Units total) by mouth every 14 (fourteen) days . 6 capsule 3 exemestane (AROMASIN) 25 mg tablet Take 1 (one) tablet (25 mg total) by mouth daily . 30 tablet 11 lisinopriL (PRINIVIL,ZESTRIL) 5 MG tablet Take 1 (one) tablet (5 mg total) by mouth daily . 90 tablet 1 metFORMIN (Glucophage XR) 500 MG 24 hr tablet Take 1 (one) tablet (500 mg total) by mouth daily with breakfast . 90 tablet 1 omeprazole (PRILOSEC) 20 MG capsule Take 1 (one) capsule (20 mg total) by mouth every other day . 45 capsule 1 cefdinir (OMNICEF) 300 MG capsule Take 1 (one) capsule (300 mg total) by mouth 2 (two) times a day for 10 days . 20 capsule 0 fluticasone propionate (FLONASE) 50 mcg/actuation nasal spray Instill 2 (two) sprays into each nostril daily . 16 g 12 No current facility-administered medications for this visit. There are no Patient Instructions on file for this visit. documented in this [id number] History of Present illness Narrative* Daisha Dong RN - 03/10/2022 12:58 PM EDT Patient denies recent dental work and jaw pain. Meets parameters for prolia injection today. documented in this [id number] History of Present illness Narrative* Marion Garrett MD - 02/22/2022 3:00 PM EDT [facility] Note Date of service: 02/22/2022 Referring Physician: Braden Gee MD PCP: Dereje Trejo MD Diagnosis/chief Complaint: Right breast invasive ductal carcinoma, ER/AL +, HER2/marily negative AJCC stage: pT1c pN0 Mx, Stage IA Date of diagnosis: 01/31/19 Goal of treatment: curative Treatment delivered: Right breast lumpectomy with SLND Reason for visit: R breast invasive ductal carcinoma Interval History: Ms. Harry is here to follow-up while on adjuvant endocrine therapy with exemestane. She initially started on therapy with Arimidex in May 2019 but switched to exemestane in 08/2020 given stiffness inher fingers as well as trigger finger issues. She has tolerated this well since starting this. She d enies any new issues. Prolia went well. HPI: Ms. Harry is a 58 year old lady with a history of diabetes, GERD, HLD, PCOS, and seasonal allergies who is being seen by oncology for a new diagnosis of stage IA right breast invasive ductal carcinoma, ER/AL +, HER2/marily negative. The patient states that she was not having any issues prior to the diagnosis. This was found on a routine screening mammogram. She says she had a mammogram last year thatwas normal. She had a mammogram at the end of December which noted a right breast lesion that was concerning for malignancy. Given this they proceeded with a biopsy which confirmed right breast invasive ductal carcinoma, ER AL positive, HER-2/marily negative. She was then referred to see Dr. Gee. They discussed surgical options and the patient elected to proceed with a right breast lumpectomy andsentinel lymph node dissection. She tolerated surgery well and is healing well from her surgery. This was performed in early February. Her final pathology shows a tumor measuring up to 1.9 cm. The sentinel lymph node were negative for malignancy. It was overall grade 1. Her final pathology shows a pT1c pN0 Mx stage I a invasive ductal carcinoma of the right breast, ER/AL positive, HER-2/marily negative. She is healing well from the surgery and she is here today to discuss next steps in her therapy. She denies any family history of breast cancer. No family history of ovarian cancer or endometrial cancer. Reproductive risk factors: Age of menarche at 17 years Age of menopause at 56 years. 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 control pills: yes. Hormone replacement therapy: yes. Caffeine intake yes History of prior breast biopsy no History of prior breast cancer no Family History : Breast cancer no Ovarian Cancer no Endometrial cancer no Family History of breast disease no ROS: General- Denies weakness, fever/chills, weight gain/loss, fatigue, change in appetite, or cold and flu symptoms HEENT: Denies hearing changes or tinnitus, vision changes, sinus pain/tenderness, nasal congestion,epistaxis, gingival bleed, sore throat, or mouth sores Cardiac; Denies CP, palpitations, dizziness, claudication, or QUINN Pulmonary- Denies SOB, wheezing, PND, or cough GI- Denies nausea and vomiting, dysphagia, heartburn, abdominal pain, diarrhea or constipation - Denies urgency, frequency, hematuria or incontinence, complains of burning when urinating Endo- Denies excessive sweating, polyuria, or polydypsia MS - Denies joint stiffness swelling, or decreased ROM, Neuro- Denies loss of consciousness, numbness or tingling Skin- Denies jaundice, rashes, or open lesions Heme- Denies night sweats, signs and symptoms of infection, easily bleeding or bruising Psych- Denies signs and symptoms of depression or suicidal thoughts Past Medical History: Diagnosis Date Breast cancer (HCC) 01/31/2019 Right-Invasive mammary carcinoma Diabetes mellitus (HCC) GERD (gastroesophageal reflux disease) Hyperlipidemia Hypertension Seasonal allergies Trigger finger of right thumb 04/06/2021 Past Surgical History: Procedure Laterality Date APPENDECTOMY BREAST BIOPSY Right 2019 BREAST LUMPECTOMY Right 02/27/2019 BREAST LUMPECTOMY W/ SENTINEL NODE, NEEDLE LOC, POSS AX DIS Right 02/27/2019 Procedure: RIGHT BREAST LUMPECTOMY WITH SENTINEL NODE BIOPSY WITH NEEDLE LOCALIZATION AND POSSIBLE AXILLARY DISSECTION; Surgeon: Braden Gee MD; [place] [facility] [place]; Service: General Surgery SECTION, CLASSIC 1996 COLONOSCOPY 05/19/2017 Normal....Dr. Blackmon D & C WITH [facility] 1994 EXPLORATORY LAPAROTOMY for infertility MM WIRE NEEDLE LOCALIZATION RIGHT Right 02/27/2019 MM NEEDLE LOCALIZATION RIGHT 02/27/2019 MAMMOGRAPHY RADIATION Right 04/2019 trigger finger surg Right 05/2021 at [facility] US BREAST BIOPSY RIGHT Right 01/31/2019 US BREAST BIOPSY RIGHT 01/31/2019, invasive mammary carcinoma US BREAST BIOPSY RIGHT Right 02/06/2019 US BREAST BIOPSY RIGHT Family History Problem Relation Age of Onset Heart attack Paternal Grandfather Pancreatic cancer Paternal Grandmother Lung cancer Paternal Aunt Pancreatic cancer Maternal Uncle Social History Socioeconomic History Marital status: Tobacco Use Smoking status: Never Smoker Smokeless tobacco: Never Used Vaping Use Vaping Use: Never used Substance and Sexual Activity Alcohol use: Not Currently Comment: SOCIALLY Drug use: No Sexual activity: Yes Partners: Male control/protection: Post-menopausal Allergies Allergen Reactions Penicillins Swelling Strong family history of penicillin allergy. Current Outpatient Medications: lisinopriL (PRINIVIL,ZESTRIL) 5 MG tablet, Take 1 (one) tablet (5 mg total) by mouth daily ., Disp:90 tablet, Rfl: 1 metFORMIN (Glucophage XR) 500 MG 24 hr tablet, Take 1 (one) tablet (500 mg total) by mouth daily with breakfast ., Disp: 90 tablet, Rfl: 1 omeprazole (PRILOSEC) 20 MG capsule, Take 1 (one) capsule (20 mg total) by mouth every other day .,Disp: 45 capsule, Rfl: 1 atorvastatin (LIPITOR) 40 MG tablet, Take 1 (one) tablet (40 mg total) by mouth daily ., Disp: 90 tablet, Rfl: 1 ergocalciferol (ERGOCALCIFEROL) 1,250 mcg (50,000 unit) capsule, Take 1 (one) capsule (50,000 Unitstotal) by mouth every 14 (fourteen) days ., Disp: 6 capsule, Rfl: 3 exemestane (AROMASIN) 25 mg tablet, Take 1 (one) tablet (25 mg total) by mouth daily ., Disp: 30 tablet, Rfl: 11 Physical exam: ECOG PS: 0 PACU Vitals 02/22/22 1510 BP: (!) 148/80 Pulse: 90 Temp: 98.2 F (36.8 C) SpO2: 97% General: well-appearing, no acute distress HEENT: NCAT, sclera anicteric, moist mm, o/p clear , no oral mucosal lesions Neck: supple, no supraclavicular adenopathy Lymph: no cervical, supraclavicular, or axillary LAD Chest: CTAB, no w/r/r, no respiratory distress CV: RRR, no S3 S4 gallops or murmurs Abd: soft, NT/ND, no HSM or masses, + BS Extrem: wwp, no c/c/e Skin: Slight yellow discoloration of the right breast no rashes or lesions Neuro: alert, oriented, CN intact, speech fluent, strength full and symmetric Breast: Right breast with 3 cm horizontal incision that is located about 2 cm above the nipple, well-healed, no erythema or drainage. Slight yellow discoloration of the skin of the right breast. No masses palpated in right breast. No axillary adenopathy appreciated. Left breast with no masses palpated or skin changes or nipple discharge. No axillary adenopathy. Psych: Mood normal, Affect normal Labs: Lab Results Component Value Date WBC 4.25 (L) 01/27/2022 HGB 14.0 01/27/2022 HCT 40.5 01/27/2022 MCV 90.6 01/27/2022 PLT 169 01/27/2022 RBC 4.47 01/27/2022 Lab Results Component Value Date GLUCOSE 148 (H) 01/27/2022 CALCIUM 9.5 01/27/2022 NA 141 01/27/2022 K 4.2 01/27/2022 CL 110 (H) 01/27/2022 BUN 10 01/27/2022 CREATININE 0.81 01/27/2022 Lab Results Component Value Date ALT 44 01/27/2022 AST 22 01/27/2022 ALKPHOS 55 01/27/2022 BILITOT 1.0 01/27/2022 Imaging: Screening mammogram 01/22/2021: Expected post-treatment changes in the right breast. No mammographic evidence for malignancy in either breast. BIRADS: Category 2 - Benign, no evidence of malignancy. Normal interval follow-up is recommended in 12 months. OVERALL ASSESSMENT - BENIGN Mammogram 01/22/20: No mammographic or sonographic evidence of malignancy. BIRADS - CATEGORY 2 Benign, no evidence of malignancy. Normal interval follow-up is recommended in 12 months. DEXA 08/17/19: Normal Mammogram 01/24/19: 1. Suspicious mass within the right breast at 12:00 5 cm from the nipple. 2. Benign complicated appearing cyst within the left breast at 10:00 4 cm from the nipple. OVERALL BIRADS: 4C-HIGH SUSPICION FOR MALIGNANCY-BIOPSY IS RECOMMENDED. RECOMMENDATION: 1: Ultrasound-guided biopsy of the right breast is recommended. Pathology: Right breast Lumpectomy 02/27/19: Histologic type: Invasive ductal carcinoma, not otherwise specified Histologic ([place]) grade: Glandular/Tubular differentiation: Score 3 Nuclear pleomorphism: Score 1 Mitotic rate: Score 1 Overall grade: Grade 1 (scores of 3, 4, or 5) Margins: Invasive carcinoma margins: Uninvolved by invasive carcinoma Distance from closest margin: Inferior margin, 2 mm DCIS margins: Uninvolved by DCIS Distance from closest margin: Inferior margin, 6 mm Pathologic Stage (AJCC 8th Ed.): pT1c pN0(sn) Procedure: Partial mastectomy Specimen laterality: Right Tumor site: 12 o'clock Tumor size: 1.9 cm Tumor focality: Single focus of invasive carcinoma Ductal carcinoma in-situ (DCIS): Present Tumor extension: Skin: Skin is not present Nipple: Nipple is not present Skeletal muscle: No skeletal muscle is present Regional lymph nodes: Uninvolved by tumor cells Number of lymph nodes examined: 4 Number of sentinel lymph nodes examined: 4 Treatment effect: No known presurgical therapy Lymphovascular invasion: Not identified Dermal lymphovascular invasion: No skin present Additional pathologic findings: None Ancillary studies: (performed on prior biopsy [id number]) ER: Positive ( 100%, 3+ intensity, resulted by image analysis) AL: Positive ( 100%, 3+ intensity, resulted by image analysis) HER2: Negative (0, resulted by image analysis) A. Lymph node(s), Axillary, [place], Right, lymphadenectomy: One lymph node, negative for malignancy (0/1). B. Lymph node(s), Axillary, [place], Right, lymphadenectomy: One lymph node, negative for malignancy (0/1). C. Breast, Right, lumpectomy: 1. Invasive ductal carcinoma. See synoptic report. 2. The margins of excision are uninvolved by tumor. D. Lymph node(s), Axillary, [place], Right, lymphadenectomy: Two lymph nodes, negative for malignancy (0/2). Assessment / plan: Ms. Harry is a 61 y.o. lady with a history of diabetes, GERD, HLD, PCOS, and seasonal allergies who is being seen by oncology for a new diagnosis of stage IA right breast invasive ductal carcinoma, ER/AL +, HER2/marily negative. Right breast invasive ductal carcinoma, ER/AL positive, HER-2/marily negative, pT1c pN0 Mx, Stage IA: The patient initially presented for her diagnosis of right breast invasive ductal carcinoma, ER AL positive, HER-2/marily negative. This was found on a routine screening mammogram and she did not have any symptoms prior to this. She had a right breast lumpectomy on 02/27/[address] Gee. The final pathology is as above overall stage I a, hormone positive, HER-2/marily negative. -I sent an Oncotype DX test on her tumor specimen and this returned with a score of 17 which is low. Based on this her absolute benefit of adjuvant chemotherapy would be less than 1%. Also, her risk of recurrence at 9 years with either an AI or tamoxifen is 5%. -Given her low Oncotype DX score, I would not recommend adjuvant chemotherapy in addition to adjuvant endocrine therapy. -She was referred to radiation oncology to complete adjuvant radiation. She had this from 05/07/2019to 06/05/2019. She tolerated it well overall with minimal side effects. -The patient would benefit from adjuvant endocrine therapy given her hormone positive malignancy. She is postmenopausal, so I recommended therapy with anastrozole 1 mg daily. We discussed the side effects including hot flashes as well as bony aches and bone density loss. -She started this in May 2019 and was initially tolerating this well but in the fall 2019 noted increased stiffness in her fingers and pain on her collarbone. We had her take a break from her Arimidex for a couple weeks to see if this improves her symptoms which it really did not however she wanted to switch to exemestane anyway. Given this we sent it to her pharmacy and she she started in August 2020. -She continues to tolerate exemestane well. She still has the joint stiffness and collarbone tenderness. This has not changed at all. No major hot flashes. We will continue this. -She should continue endocrine therapy for at least 5 years, through 05/2024. -Her last bone density scan was from 08/18/2021 and noted normal bone density however she had significant bone density loss compared to her prior scan. She was previously on calcium and vitamin D however this resulted in hypercalcemia and she was instructed to stop. -Given this Prolia was discussed with the patient and she wanted to proceed with this. She started this on 09/09/2021 and tolerated it well. We will plan to continue with repeat bone density scan in July 2023. -Her last mammogram was on 01/25/2022 and was normal, she is due for follow-up in 1 year, December 2022. Ordered today. Joint stiffness: Possibly due to her Arimidex however there was no improvement or change after stopping this. She remains on exemestane with stable symptoms. Likely due to underlying arthritis. She will follow with her PCP for this. Diabetes: Per patient history. She will continue to follow with her PCP for this. Last HbA1c was 7.0. She is on metformin for this. Hypertension: Per patient history. She will continue follow-up with her PCP for this. Her blood pressure today is 148/80. She did take her medications. RTC 6-9 months for eval on therapy Education Provided Education/Instructions given to: (x) Patient (_) Spouse (_) Parent (_) Other Barriers to Learning: (x) None (_) Yes (identify):_ Content: (x) Refer to note above (_)Other (identify):_ Evaluation/Outcome: (x) Verbalized understanding (_) Demonstrated understanding NCCN Guidelines Consulted: (x ) Yes ( ) No Recommendations Concordant with Guidelines: ( x ) Yes ( ) No Reason for Non-Concordance: n/a documented in this [id number] History of Present illness Narrative* Dereje Trejo MD - 02/03/2022 4:13 PM EST Images from the original note were not included. Lyn Harry 1960 [id number] HPI: Patient was here today to follow-up on her chronic medical problems. Diabetes, hypertension, vitamin D deficiency and GERD: Patient has been compliant with all the prescribed medications without any significant adverse effects but has not been strictly compliant with diabetic diet. She states that she just started doing some exercise in the past few days. Her latesthemoglobin A1c is worse than the previous one. Her blood pressures at home have been mostly in the range of 120-130/70-80. Patient stated that she has cut back down on the dosing of the Prilosec as she has not had any significant symptoms of heartburn lately and is currently taking Prilosec every third day and still has her symptoms under control. Her last vitamin D level from September was withinthe normal range. Patient has been following up with oncology for her breast cancer treatment on a regular basis. Patient Active Problem List Diagnosis Gastroesophageal reflux disease without esophagitis Seasonal allergies Vitamin D deficiency PCO (polycystic ovaries) Non-alcoholic fatty liver disease Invasive ductal carcinoma of breast, female, right (HCC) Essential hypertension Type 2 diabetes mellitus without complication, without long-term current use of insulin (HCC) Mixed hyperlipidemia Hypercalcemia Past Medical History: Diagnosis Date Breast cancer (HCC) 01/31/2019 Right-Invasive mammary carcinoma Diabetes mellitus (HCC) GERD (gastroesophageal reflux disease) Hyperlipidemia Hypertension Seasonal allergies Trigger finger of right thumb 04/06/2021 Past Surgical History: Procedure Laterality Date APPENDECTOMY BREAST BIOPSY Right 2019 BREAST LUMPECTOMY Right 02/27/2019 BREAST LUMPECTOMY W/ SENTINEL NODE, NEEDLE LOC, POSS AX DIS Right 02/27/2019 Procedure: RIGHT BREAST LUMPECTOMY WITH SENTINEL NODE BIOPSY WITH NEEDLE LOCALIZATION AND POSSIBLE AXILLARY DISSECTION; Surgeon: Braden Gee MD; Location: Main OR; Service: General Surgery SECTION, CLASSIC 1996 COLONOSCOPY 05/19/2017 Normal....Dr. Blackmon D & C WITH LEEP 1994 EXPLORATORY LAPAROTOMY for infertility MM WIRE NEEDLE LOCALIZATION RIGHT Right 02/27/2019 MM NEEDLE LOCALIZATION RIGHT 02/27/2019 MAMMOGRAPHY RADIATION Right 04/2019 trigger finger surg Right 05/2021 at [facility] US BREAST BIOPSY RIGHT Right 01/31/2019 US BREAST BIOPSY RIGHT 01/31/2019, invasive mammary carcinoma US BREAST BIOPSY RIGHT Right 02/06/2019 US BREAST BIOPSY RIGHT Social History Socioeconomic History Marital status: Tobacco Use Smoking status: Never Smoker Smokeless tobacco: Never Used Vaping Use Vaping Use: Never used Substance and Sexual Activity Alcohol use: Not Currently Comment: SOCIALLY Drug use: No Sexual activity: Yes Partners: Male control/protection: Post-menopausal Family History Problem Relation Age of Onset Heart attack Paternal Grandfather Pancreatic cancer Paternal Grandmother Lung cancer Paternal Aunt Pancreatic cancer Maternal Uncle Review of Systems Constitutional: Negative for chills, diaphoresis, fatigue, fever and unexpected weight change. Respiratory: Negative for cough, shortness of breath and wheezing. Cardiovascular: Negative for chest pain, palpitations and leg swelling. Gastrointestinal: Negative for abdominal pain, blood in stool, constipation, diarrhea, nausea and vomiting. Neurological: Negative for dizziness, light-headedness and headaches. Physical Exam: Vitals: 02/03/22 1556 BP: 123/77 BP Location: Left arm Patient Position: Sitting BP Cuff Size: Adult Pulse: 69 Resp: 14 Temp: 98.4 F (36.9 C) TempSrc: Infrared SpO2: 95% Weight: 93 kg (205 lb) Height: 5' 5" Physical Exam Constitutional: General: She is not in acute distress. Neck: Vascular: No carotid bruit. Cardiovascular: Rate and Rhythm: Normal rate and regular rhythm. Heart sounds: Normal heart sounds. No murmur heard. Pulmonary: Effort: Pulmonary effort is normal. No respiratory distress. Breath sounds: Normal breath sounds. No wheezing or rales. Abdominal: General: There is no distension. Palpations: Abdomen is soft. Tenderness: There is no abdominal tenderness. Musculoskeletal: Right lower leg: No edema. Left lower leg: No edema. Assessment & Plan: 1. Type 2 diabetes mellitus without complication, without long-term current use of insulin ([facility]) Microalbumin/Creatinine Ratio, UR Random Hemoglobin A1c 2. Essential hypertension 3. Gastroesophageal reflux disease without esophagitis 4. Vitamin D deficiency Vitamin D, Total, 25-OH Hypertension: Blood pressure seems to be under control now. Continue same medication regimen. Diabetes: Progressively worsening though hemoglobin A1c still reasonably controlled at 7.0 based onthe latest labs. Encouraged for compliance with diabetic diet, regular exercise and weight loss. Continue same medication for now. Some of her prescriptions were refilled today. GERD: Patient claims that her symptoms seem to be still under control even with taking Prilosec 40 mg every third day. Hence, the dose of Prilosec was decreased to 20 mg every other day. New prescription was given today. Vitamin D deficiency: Deficiency seems to have resolved with last vitamin D level from September around 44. Continue same vitamin D supplements. We will repeat vitamin D level in 3 months. Return in about 4 months (around 06/05/2022), or if symptoms worsen or fail to improve. Patient education & instructions given for: Advised patient about possible common adverse-effects from the medications, but also recommended to review the medication information package inserts for complete list of adverse effects/contraindications, drug interactions etc., before starting any new medication. Patient was also advised to immediately discontinue the medication and notify us or go to a nearby ER if experiencing any severe adverse affects from the medications. All the addressed problems were discussed with the patient and advice given to call with any concerns or return to theoffice or go to a nearby ER if the symptoms do not improve or worsen or new symptoms develop. If any referrals were placed or tests ordered at today's visit, the patient was instructed to call the office if they are not notified about the scheduling of referral or tests, within 2 weeks of today's visit. Health maintenance/preventive screening reviewed / ordered: Offered age- appropriate preventive services and screening. Screening colonoscopy April 2017: Normal colonoscopy. Please note: Portions of this chart may have been created with [employer] voice recognition software. Occasional wrong-word or "sound-like" substitutions may have occurred due to inherent limitations of the voice recognition software. Please read the chart carefully and recognize, using context, where the substitutions have occurred. documented in this [id number] History of Present illness Narrative* Dereje Trejo MD - 11/02/2021 3:17 PM EST Images from the original note were not included. Lyn Harry 1960 [id number] HPI: Patient was here today to follow-up on her chronic medical problems. Diabetes, hypertension and hyperlipidemia: Patient has been compliant with all the prescribed medications without any significant adverse effects and also has been compliant with diabetic diet. Has been doing some exercise in the form of walking at least 3 days a week. But her latest hemoglobin [id number] worse than the previous one. Her last lipid panel from May showed good control of the cholesterol. She has been monitoring blood pressure at home and has been mostly in the range of 120 135/70 85. But her blood pressure was mildly elevated here today. Her blood pressure reading at [employer] office visit in September was 122/78. Patient Active Problem List Diagnosis Gastroesophageal reflux disease without esophagitis Seasonal allergies Vitamin D deficiency PCO (polycystic ovaries) Non-alcoholic fatty liver disease Invasive ductal carcinoma of breast, female, right (HCC) Essential hypertension Type 2 diabetes mellitus without complication, without long-term current use of insulin (HCC) Mixed hyperlipidemia Hypercalcemia Past Medical History: Diagnosis Date Breast cancer (HCC) 01/31/2019 Right-Invasive mammary carcinoma Diabetes mellitus (HCC) GERD (gastroesophageal reflux disease) Hyperlipidemia Hypertension Seasonal allergies Trigger finger of right thumb 04/06/2021 Past Surgical History: Procedure Laterality Date APPENDECTOMY BREAST BIOPSY Right 2019 BREAST LUMPECTOMY Right 02/27/2019 BREAST LUMPECTOMY W/ SENTINEL NODE, NEEDLE LOC, POSS AX DIS Right 02/27/2019 Procedure: RIGHT BREAST LUMPECTOMY WITH SENTINEL NODE BIOPSY WITH NEEDLE LOCALIZATION AND POSSIBLE AXILLARY DISSECTION; Surgeon: Braden Gee MD; Location: Main OR; Service: General Surgery SECTION, CLASSIC 1996 COLONOSCOPY 05/19/2017 Normal....Dr. Blackmon D & C WITH [place] 1994 EXPLORATORY LAPAROTOMY for infertility MM WIRE NEEDLE LOCALIZATION RIGHT Right 02/27/2019 MM NEEDLE LOCALIZATION RIGHT 02/27/2019 MAMMOGRAPHY RADIATION Right 04/2019 trigger finger surg Right 05/2021 at [facility] BREAST BIOPSY RIGHT Right 01/31/2019 US BREAST BIOPSY RIGHT 01/31/2019, invasive mammary carcinoma US BREAST BIOPSY RIGHT Right 02/06/2019 US BREAST BIOPSY RIGHT Social History Socioeconomic History Marital status: Tobacco Use Smoking status: Never Smoker Smokeless tobacco: Never Used Vaping Use Vaping Use: Never used Substance and Sexual Activity Alcohol use: Not Currently Comment: SOCIALLY Drug use: No Sexual activity: Yes Partners: Male control/protection: Post-menopausal Family History Problem Relation Age of Onset Heart attack Paternal Grandfather Pancreatic cancer Paternal Grandmother Lung cancer Paternal Aunt Pancreatic cancer Maternal Uncle Review of Systems Constitutional: Negative for chills, diaphoresis, fatigue, fever and unexpected weight change. Respiratory: Negative for cough, shortness of breath and wheezing. Cardiovascular: Negative for chest pain, palpitations and leg swelling. Gastrointestinal: Negative for abdominal pain, blood in stool, constipation, diarrhea, nausea and vomiting. Neurological: Negative for dizziness, light-headedness and headaches. Physical Exam: Vitals: 11/02/21 1512 11/02/21 1522 BP: (!) 143/81 (!) 138/96 BP Location: Left arm Left arm Patient Position: Sitting Sitting BP Cuff Size: Adult Adult Pulse: 83 Resp: 14 Temp: 98.2 F (36.8 C) TempSrc: Infrared SpO2: 97% Weight: 93.9 kg (207 lb) Height: 5' 5" Physical Exam Constitutional: General: She is not in acute distress. Neck: Vascular: No carotid bruit. Cardiovascular: Rate and Rhythm: Normal rate and regular rhythm. Heart sounds: Normal heart sounds. No murmur heard. Pulmonary: Effort: Pulmonary effort is normal. No respiratory distress. Breath sounds: Normal breath sounds. No wheezing or rales. Abdominal: General: There is no distension. Palpations: Abdomen is soft. Tenderness: There is no abdominal tenderness. Musculoskeletal: Left lower leg: No edema. Assessment & Plan: 1. Type 2 diabetes mellitus without complication, without long-term current use of insulin (HCC) CBC and Differential Comprehensive Metabolic Panel Hemoglobin A1c Lipid Panel 2. Mixed hyperlipidemia TSH with Reflex Free T4 3. Essential hypertension Hypertension: Suboptimally controlled blood pressure here today. Discussed target blood pressure goals. Patient prefers to continue same medication as her blood pressures readings from home seem to be reasonably under control. Hence, we will continue same medication for now. Prescriptions were refilled today. Hyperlipidemia: Seems to be under control with latest lipid panel in May showing an LDL around 51.Encouraged for compliance with low-fat/low-cholesterol diet, regular exercise. Continue same dose of statin. Diabetes: Seems to be stable though some worsening of hemoglobin A1c with the latest one around 6.8. Encouraged for compliance with diabetic diet. Continue same medication for now. Will repeat hemoglobin A1c in 3 to 4 months. Encouraged for regular aerobic exercise and some weight loss. Return in about 3 months (around 01/31/2022), or if symptoms worsen or fail to improve. Patient education & instructions given for: Advised patient about possible common adverse-effects from the medications, but also recommended to review the medication information package inserts for complete list of adverse effects/contraindications, drug interactions etc., before starting any new medication. Patient was also advised to immediately discontinue the medication and notify us or go to a nearby ER if experiencing any severe adverse affects from the medications. All the addressed problems were discussed with the patient and advice given to call with any concerns or return to theoffice or go to a nearby ER if the symptoms do not improve or worsen or new symptoms develop. If any referrals were placed or tests ordered at today's visit, the patient was instructed to call the office if they are not notified about the scheduling of referral or tests, within 2 weeks of today's visit. Health maintenance/preventive screening reviewed / ordered: Offered age- appropriate preventive services and screening. Screening colonoscopy April 2017: Normal colonoscopy. Please note: Portions of this chart may have been created with [employer] voice recognition software. Occasional wrong-word or "sound-like" substitutions may have occurred due to inherent limitations of the voice recognition software. Please read the chart carefully and recognize, using context, where the substitutions have occurred. documented in this [id number] History of Present illness Narrative* Pratik Riley MD - 08/26/2021 3:00 PM EDT [facility] Note Date of service: 08/26/2021 Referring Physician: Braden Gee MD PCP: Dereje Trejo MD Diagnosis/chief Complaint: Right breast invasive ductal carcinoma, ER/AL +, HER2/marily negative AJCC stage: pT1c pN0 Mx, Stage IA Date of diagnosis: 01/31/19 Goal of treatment: curative Treatment delivered: Right breast lumpectomy with SLND Reason for visit: R breast invasive ductal carcinoma Interval History: Ms. Harry is here to follow-up while on adjuvant endocrine therapy with exemestane. She initially started on therapy with Arimidex in May 2019 but switched to exemestane in 08/2020 given stiffness inher fingers as well as trigger finger issues. She has tolerated this well since starting this. Denies any significant complaints or issues though is concerned about her most recent DEXA results, as below. Her previous right breast erythema has resolved without any recurrence. No other problems reported, ROS negative as below. HPI: Ms. Harry is a 58 year old lady with a history of diabetes, GERD, HLD, PCOS, and seasonal allergies who is being seen by oncology for a new diagnosis of stage IA right breast invasive ductal carcinoma, ER/AL +, HER2/marily negative. The patient states that she was not having any issues prior to the diagnosis. This was found on a routine screening mammogram. She says she had a mammogram last year thatwas normal. She had a mammogram at the end of December which noted a right breast lesion that was concerning for malignancy. Given this they proceeded with a biopsy which confirmed right breast invasive ductal carcinoma, ER AL positive, HER-2/marily negative. She was then referred to see Dr. Gee. They discussed surgical options and the patient elected to proceed with a right breast lumpectomy andsentinel lymph node dissection. She tolerated surgery well and is healing well from her surgery. This was performed in early February. Her final pathology shows a tumor measuring up to 1.9 cm. The sentinel lymph node were negative for malignancy. It was overall grade 1. Her final pathology shows a pT1c pN0 Mx stage I a invasive ductal carcinoma of the right breast, ER/AL positive, HER-2/marily negative. She is healing well from the surgery and she is here today to discuss next steps in her therapy. She denies any family history of breast cancer. No family history of ovarian cancer or endometrial cancer. Reproductive risk factors: Age of menarche at 17 years Age of menopause at 56 years. 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 control pills: yes. Hormone replacement therapy: yes. Caffeine intake yes History of prior breast biopsy no History of prior breast cancer no Family History : Breast cancer no Ovarian Cancer no Endometrial cancer no Family History of breast disease no ROS: General- Denies weakness, fever/chills, weight gain/loss, fatigue, change in appetite, or cold and flu symptoms HEENT: Denies hearing changes or tinnitus, vision changes, sinus pain/tenderness, nasal congestion,epistaxis, gingival bleed, sore throat, or mouth sores Cardiac; Denies CP, palpitations, dizziness, claudication, or QUINN Pulmonary- Denies SOB, wheezing, PND, or cough GI- Denies nausea and vomiting, dysphagia, heartburn, abdominal pain, diarrhea or constipation - Denies urgency, frequency, hematuria or incontinence, complains of burning when urinating Endo- Denies excessive sweating, polyuria, or polydypsia MS - Denies joint stiffness swelling, or decreased ROM, Neuro- Denies loss of consciousness, numbness or tingling Skin- Denies jaundice, rashes, or open lesions Heme- Denies night sweats, signs and symptoms of infection, easily bleeding or bruising Psych- Denies signs and symptoms of depression or suicidal thoughts Past Medical History: Diagnosis Date Breast cancer (HCC) 01/31/2019 Right-Invasive mammary carcinoma Diabetes mellitus (HCC) GERD (gastroesophageal reflux disease) Hyperlipidemia Hypertension Seasonal allergies Trigger finger of right thumb 04/06/2021 Past Surgical History: Procedure Laterality Date APPENDECTOMY BREAST BIOPSY Right 2019 BREAST LUMPECTOMY Right 02/27/2019 BREAST LUMPECTOMY W/ SENTINEL NODE, NEEDLE LOC, POSS AX DIS Right 02/27/2019 Procedure: RIGHT BREAST LUMPECTOMY WITH SENTINEL NODE BIOPSY WITH NEEDLE LOCALIZATION AND POSSIBLE AXILLARY DISSECTION; Surgeon: Braden Gee MD; Location: Main OR; Service: General Surgery SECTION, CLASSIC 1996 COLONOSCOPY 05/19/2017 Normal....Dr. Blackmon D & C WITH LEEP 1994 EXPLORATORY LAPAROTOMY for infertility MM WIRE NEEDLE LOCALIZATION RIGHT Right 02/27/2019 MM NEEDLE LOCALIZATION RIGHT 02/27/2019 MAMMOGRAPHY RADIATION Right 04/2019 trigger finger surg Right 05/2021 at [facility] BREAST BIOPSY RIGHT Right 01/31/2019 US BREAST BIOPSY RIGHT 01/31/2019, invasive mammary carcinoma US BREAST BIOPSY RIGHT Right 02/06/2019 US BREAST BIOPSY RIGHT Family History Problem Relation Age of Onset Heart attack Paternal Grandfather Pancreatic cancer Paternal Grandmother Lung cancer Paternal Aunt Pancreatic cancer Maternal Uncle Social History Socioeconomic History Marital status: Spouse name: Not on file Number of children: Not on file Years of education: Not on file Highest education level: Not on file Occupational History Not on file Tobacco Use Smoking status: Never Smoker Smokeless tobacco: Never Used Vaping Use Vaping Use: Never used Substance and Sexual Activity Alcohol use: Not Currently Comment: SOCIALLY Drug use: No Sexual activity: Yes Partners: Male control/protection: Post-menopausal Other Topics Concern Not on file Social History Narrative Not on file Social Determinants of Health Financial Resource Strain: Difficulty of Paying Living Expenses: Not on file Food Insecurity: Worried About Running Out of Food in the Last Year: Not on file Ran Out of Food in the Last Year: Not on file Transportation Needs: Lack of Transportation (Medical): Not on file Lack of Transportation (Non-Medical): Not on file Physical Activity: Days of Exercise per Week: Not on file Minutes of Exercise per Session: Not on file Stress: Feeling of Stress : Not on file Social Connections: Frequency of Communication with Friends and Family: Not on file Frequency of Social Gatherings with Friends and Family: Not on file Attends Confucianist Services: Not on file Active Member of Clubs or Organizations: Not on file Attends Club or Organization Meetings: Not on file Marital Status: Not on file Housing Stability: Unable to Pay for Housing in the Last Year: Not on file Number of Places Lived in the Last Year: Not on file Unstable Housing in the Last Year: Not on file Allergies Allergen Reactions Penicillins Swelling Strong family history of penicillin allergy. Current Outpatient Medications: atorvastatin (LIPITOR) 40 MG tablet, Take 1 (one) tablet (40 mg total) by mouth daily ., Disp: 90 tablet, Rfl: 1 B cmplx 4/vit D3/C/folic/zinc (VITAL-D RX ORAL), Take 50,000 Units by mouth Every two weeks ., Disp: , Rfl: ergocalciferol (ERGOCALCIFEROL) 1,250 mcg (50,000 unit) capsule, Take 1 (one) capsule (50,000 Unitstotal) by mouth every 14 (fourteen) days ., Disp: 6 capsule, Rfl: 3 exemestane (AROMASIN) 25 mg tablet, Take 1 (one) tablet (25 mg total) by mouth daily ., Disp: 30 tablet, Rfl: 11 lisinopriL (PRINIVIL,ZESTRIL) 5 MG tablet, Take 1 (one) tablet (5 mg total) by mouth daily ., Disp:90 tablet, Rfl: 1 metFORMIN (Glucophage XR) 500 MG 24 hr tablet, Take 1 (one) tablet (500 mg total) by mouth daily with breakfast ., Disp: 90 tablet, Rfl: 1 omeprazole (PRILOSEC) 40 MG capsule, Take 1 (one) capsule (40 mg total) by mouth daily ., Disp: 90 capsule, Rfl: 1 Current Facility-Administered Medications: acetaminophen (TYLENOL) tablet 650 mg, 650 mg, Oral, Q6H PRN, Damon Coe, BEAUTY SALES ADVISOR, 650 mg at 07/26/21 1909 Physical exam: ECOG PS: 0 PACU Vitals 08/26/21 1454 BP: 137/87 Pulse: 89 Temp: 98.4 F (36.9 C) SpO2: 95% General: well-appearing, no acute distress HEENT: NCAT, sclera anicteric, moist mm, o/p clear , no oral mucosal lesions Neck: supple, no supraclavicular adenopathy Lymph: no cervical, supraclavicular, or axillary LAD Chest: CTAB, no w/r/r, no respiratory distress CV: RRR, no S3 S4 gallops or murmurs Abd: soft, NT/ND, no HSM or masses, + BS Extrem: wwp, no c/c/e Skin: Slight yellow discoloration of the right breast no rashes or lesions Neuro: alert, oriented, CN intact, speech fluent, strength full and symmetric Breast: Right breast with 3 cm horizontal incision that is located about 2 cm above the nipple, well-healed, no erythema or drainage. Slight yellow discoloration of the skin of the right breast. No masses palpated in right breast. No axillary adenopathy appreciated. Left breast with no masses palpated or skin changes or nipple discharge. No axillary adenopathy. Psych: Mood normal, Affect normal Labs: Lab Results Component Value Date WBC 4.16 (L) 06/23/2021 HGB 14.7 06/23/2021 HCT 42.1 06/23/2021 MCV 91.3 06/23/2021 PLT 183 06/23/2021 RBC 4.61 06/23/2021 Lab Results Component Value Date GLUCOSE 132 (H) 06/23/2021 CALCIUM 10.8 (H) 06/23/2021 NA 141 06/23/2021 K 4.1 06/23/2021 CL 107 06/23/2021 BUN 11 06/23/2021 CREATININE 0.94 06/23/2021 Lab Results Component Value Date ALT 40 06/23/2021 AST 23 06/23/2021 ALKPHOS 97 06/23/2021 BILITOT 1.0 06/23/2021 Imaging: Screening mammogram 01/22/2021: Expected post-treatment changes in the right breast. No mammographic evidence for malignancy in either breast. BIRADS: Category 2 - Benign, no evidence of malignancy. Normal interval follow-up is recommended in 12 months. OVERALL ASSESSMENT - BENIGN Mammogram 01/22/20: No mammographic or sonographic evidence of malignancy. BIRADS - CATEGORY 2 Benign, no evidence of malignancy. Normal interval follow-up is recommended in 12 months. DEXA 08/17/19: Normal Mammogram 01/24/19: 1. Suspicious mass within the right breast at 12:00 5 cm from the nipple. 2. Benign complicated appearing cyst within the left breast at 10:00 4 cm from the nipple. OVERALL BIRADS: 4C-HIGH SUSPICION FOR MALIGNANCY-BIOPSY IS RECOMMENDED. RECOMMENDATION: 1: Ultrasound-guided biopsy of the right breast is recommended. Pathology: Right breast Lumpectomy 02/27/19: Histologic type: Invasive ductal carcinoma, not otherwise specified Histologic ([place]) grade: Glandular/Tubular differentiation: Score 3 Nuclear pleomorphism: Score 1 Mitotic rate: Score 1 Overall grade: Grade 1 (scores of 3, 4, or 5) Margins: Invasive carcinoma margins: Uninvolved by invasive carcinoma Distance from closest margin: Inferior margin, 2 mm DCIS margins: Uninvolved by DCIS Distance from closest margin: Inferior margin, 6 mm Pathologic Stage (AJCC 8th Ed.): pT1c pN0(sn) Procedure: Partial mastectomy Specimen laterality: Right Tumor site: 12 o'clock Tumor size: 1.9 cm Tumor focality: Single focus of invasive carcinoma Ductal carcinoma in-situ (DCIS): Present Tumor extension: Skin: Skin is not present Nipple: Nipple is not present Skeletal muscle: No skeletal muscle is present Regional lymph nodes: Uninvolved by tumor cells Number of lymph nodes examined: 4 Number of sentinel lymph nodes examined: 4 Treatment effect: No known presurgical therapy Lymphovascular invasion: Not identified Dermal lymphovascular invasion: No skin present Additional pathologic findings: None Ancillary studies: (performed on prior biopsy [id number]) ER: Positive ( 100%, 3+ intensity, resulted by image analysis) AL: Positive ( 100%, 3+ intensity, resulted by image analysis) HER2: Negative (0, resulted by image analysis) A. Lymph node(s), Axillary, [place], Right, lymphadenectomy: One lymph node, negative for malignancy (0/1). B. Lymph node(s), Axillary, [place], Right, lymphadenectomy: One lymph node, negative for malignancy (0/1). C. Breast, Right, lumpectomy: 1. Invasive ductal carcinoma. See synoptic report. 2. The margins of excision are uninvolved by tumor. D. Lymph node(s), Axillary, [place], Right, lymphadenectomy: Two lymph nodes, negative for malignancy (0/2). Assessment / plan: Ms. Harry is a 58 year old lady with a history of diabetes, GERD, HLD, PCOS, and seasonal allergies who is being seen by oncology for a new diagnosis of stage IA right breast invasive ductal carcinoma, ER/AL +, HER2/marily negative. Right breast invasive ductal carcinoma, ER/AL positive, HER-2/marily negative, pT1c pN0 Mx, Stage IA: The patient initially presented for her diagnosis of right breast invasive ductal carcinoma, ER AL positive, HER-2/marily negative. This was found on a routine screening mammogram and she did not have any symptoms prior to this. She had a right breast lumpectomy on 02/27/[address] Gee. The final pathology is as above overall stage I a, hormone positive, HER-2/marily negative. -I sent an Oncotype DX test on her tumor specimen and this returned with a score of 17 which is low. Based on this her absolute benefit of adjuvant chemotherapy would be less than 1%. Also, her risk of recurrence at 9 years with either an AI or tamoxifen is 5%. -Given her low Oncotype DX score, I would not recommend adjuvant chemotherapy in addition to adjuvant endocrine therapy. -She was referred to radiation oncology to complete adjuvant radiation. She had this from 05/07/2019to 06/05/2019. She tolerated it well overall with minimal side effects. -The patient would benefit from adjuvant endocrine therapy given her hormone positive malignancy. She is postmenopausal, so I recommended therapy with anastrozole 1 mg daily. We discussed the side effects including hot flashes as well as bony aches and bone density loss. -She started this in May 2019 and was initially tolerating this well but in the fall 2019 noted increased stiffness in her fingers and pain on her collarbone. We had her take a break from her Arimidex for a couple weeks to see if this improves her symptoms which it really did not however she wanted to switch to exemestane anyway. Given this we sent it to her pharmacy and she she started in August 2020. -Since starting exemestane, she has tolerated this well. She still has the joint stiffness and collarbone tenderness. This has not changed at all. No major hot flashes. We will continue this. -She should continue endocrine therapy for at least 5 years, through 05/2024. -She had a DEXA scan for baseline testing and this was normal. Repeat DEXA still technically normalbut w/ rather significant interval bone loss noted. She was previously taking calcium and vitamin Dsupplements, however was instructed by her PCP to stop due to hypercalcemia in summer 2020. We discussed today that this is likely due to her aromatase inhibitor, and so the options would be to either stop exemestane (which I would not recommend at this time), continue exemestane and resume calciumand vitamin D with close her laboratory follow-up and a repeat DEXA scan in 1 year, or continue exemestane and resume calcium and vitamin D and consider bone strengthening agent such as Prolia. Will discuss further w/ pharmacy to confirm eligibility for Prolia then reach out to patient again to discuss. -She had a screening mammogram on 01/22/2021 which noted posttreatment changes that were expected inthe right breast and no evidence for malignancy in either breast. A 12-month follow-up was recommended. Currently scheduled for 01/25/22. Right breast erythema: Unclear etiology. This resolved on its own. No findings on exam. Also seen by Dr Gee at last visit, recommended observation w/ punch bx if persistent or worsening. No recurrence since. Joint stiffness: We had her stop her Arimidex to see if this improves. It did not really improve but she still wanted to try exemestane. She has not noticed any changes with this. This is likely unrelated to her exemestane or Arimidex and could be related to arthritis. I instructed her to follow-upwith her PCP for this. Neck fullness: The patient noted neck fullness in the center of her neck above her collarbone. Thisfeels like soft tissue but we ordered an ultrasound, which was done in 01/2021 and was unremarkable. Elevated calcium: Resolved. Her labs from last fall showed a normal calcium. Will monitor. Diabetes: Per patient history. She will continue to follow with her PCP for this. Hypertension: Per patient history. She will continue follow-up with her PCP for this. RTC 6 months for eval on therapy Education Provided Education/Instructions given to: (x) Patient (_) Spouse (_) Parent (_) Other Barriers to Learning: (x) None (_) Yes (identify):_ Content: (x) Refer to note above (_)Other (identify):_ Evaluation/Outcome: (x) Verbalized understanding (_) Demonstrated understanding NCCN Guidelines Consulted: (x ) Yes ( ) No Recommendations Concordant with Guidelines: ( x ) Yes ( ) No Reason for Non-Concordance: N/a Pratik Riley MD documented in this [id number] Instructions* Patient Instructions* Damon Coe CNP - 07/26/2021 7:14 PM EDT Images from the original note were not included. We will call you with results in approximately 24-72 hours. Isolation guidelines are listed in the other discharge packet. If you develop chest pain or shortness of breath you should go to the ER. Take Tylenol and or Motrin as needed. Stay hydrated. If symptoms worsen, you should be re-evaluatedhere, ER or your doctors office. Learning About Coronavirus (COVID-19) What is coronavirus (COVID-19)? COVID-19 is a disease caused by a type of coronavirus. This illness was first found in October 2019. It has since spread worldwide. Coronaviruses are a large group of viruses. They cause the common cold. They also cause more serious illnesses like [place] respiratory syndrome (MERS) and severe acute respiratory syndrome (SARS). COVID-19 is caused by a novel coronavirus. That means it's a new type that has not been seen in people before. What are the symptoms? COVID-19 symptoms may include: Fever. Cough. Trouble breathing. Chills or repeated shaking with chills. Muscle and body aches. Headache. Sore throat. New loss of taste or smell. Vomiting. Diarrhea. In severe cases, COVID-19 can cause pneumonia and make it hard to breathe without help from a machine. It can cause . How is it diagnosed? COVID-19 is diagnosed with a viral test. This may also be called a PCR test or antigen test. It looks for evidence of the virus in your breathing passages or lungs (respiratory system). The test is most often done on a sample from the nose, throat, or lungs. It's sometimes done on a sample of saliva. One way a sample is collected is by putting a long swab into the back of your nose. How is it treated? Mild cases of COVID-19 can be treated at home. Serious cases need treatment in the hospital. Treatment may include medicines to reduce symptoms, plus breathing support such as oxygen therapy or a ventilator. Some people may be placed on their belly to help their oxygen levels. Treatments that may help people who have COVID-19 include: Antiviral medicines. These medicines treat viral infections. Remdesivir is an example. Immune-based therapy. These medicines help the immune system fight COVID-19. Examples include monoclonal antibodies. Blood thinners. These medicines help prevent blood clots. People with severe illness are at risk for blood clots. How can you protect yourself and others? The best way to protect yourself from getting sick is to: Get vaccinated. Avoid sick people. If you are not fully vaccinated: ? Wear a mask if you have to go to public areas. ? Avoid crowds and try to stay at least 6 feet away from other people. Cover your mouth with a tissue when you cough or sneeze. Wash your hands often, especially after you cough or sneeze. Use soap and water, and scrub for at least 20 seconds. If soap and water aren't available, use an alcohol-based hand testing engineer. Avoid touching your mouth, nose, and eyes. To help avoid spreading the virus to others: Get vaccinated. Cover your mouth with a tissue when you cough or sneeze. Wash your hands often, especially after you cough or sneeze. Use soap and water, and scrub for at least 20 seconds. If soap and water aren't available, use an alcohol-based hand testing engineer. If you have been exposed to the virus and are not fully vaccinated: ? Stay home. Don't go to school, work, or public areas. And don't use public transportation, ride-shares, or taxis unless you have no choice. ? Wear a mask if you have to go to public areas, like the pharmacy. If you're sick: ? Leave your home only if you need to get medical care. But call the doctor's office first so they know you're coming. And wear a mask. ? Wear a mask whenever you're around other people. ? Limit contact with pets and people in your home. If possible, stay in a separate bedroom and use a separate bathroom. ? Clean and disinfect your home every day. Use household warehouse operations associate and disinfectant wipes or sprays.Take special care to clean things that you touch with your hands. How can you self-isolate when you have COVID-19? If you have COVID-19, there are things you can do to help avoid spreading the virus to others. Limit contact with people in your home. If possible, stay in a separate bedroom and use a separate bathroom. Wear a mask when you are around other people. If you have to leave home, avoid crowds and try to stay at least 6 feet away from other people. Avoid contact with pets and other animals. Cover your mouth and nose with a tissue when you cough or sneeze. Then throw it in the trash right away. Wash your hands often, especially after you cough or sneeze. Use soap and water, and scrub for at least 20 seconds. If soap and water aren't available, use an alcohol-based hand testing engineer. Don't share personal household items. These include bedding, towels, cups and glasses, and eating utensils. Wash laundry in the warmest water allowed for the fabric type, and dry it completely. It's okay to wash other people's laundry with yours. Clean and disinfect your home. Use household warehouse operations associate and disinfectant wipes or sprays. When should you call for help? Call 911 anytime you think you may need emergency care. For example, call if you have life-threatening symptoms, such as: You have severe trouble breathing. (You can't talk at all.) You have constant chest pain or pressure. You are severely dizzy or lightheaded. You are confused or can't think clearly. You have pale, walker, or blue-colored skin or lips. You pass out (lose consciousness) or are very hard to wake up. Call your doctor now or seek immediate medical care if: You have moderate trouble breathing. (You can't speak a full sentence.) You are coughing up blood (more than about 1 teaspoon). You have signs of low blood pressure. These include feeling lightheaded; being too weak to stand; and having cold, pale, clammy skin. Watch closely for changes in your health, and be sure to contact your doctor if: Your symptoms get worse. You are not getting better as expected. You have new or worse symptoms of anxiety, depression, nightmares, or flashbacks. Call before you go to the doctor's office. Follow their instructions. And wear a mask. Current as of: August 20, 2020 Content Version: 12.9 7682-5676 [employer]. Care instructions adapted under license by your healthcare professional. If you have questions about a medical condition or this instruction, always ask your healthcare professional. [employer] disclaims any warranty or liability for your use of this information. documented in this [id number] History of Present illness Narrative* Damon Coe CNP - 07/26/2021 6:46 PM EDT Images from the original note were not included. Patient Name: [facility] Location: [facility] [address] [place] [id number] Date Of : Date Of Visit: 1960 07/26/2021 MRN# Provider: [id number] Damon Coe CNP Chief Complaint Patient presents with Covid-19 Screening Patient does not have direct exposure- notes her son works with a person who tested positive, son himself also has loss of taste but refuses to be tested. Symptoms started 07/24/21 with scratchy throat, headache. Patient states cough started today along with low grade fever. Assessment & Plan 1. Exposure to 2019 novel coronavirus COVID-19, Molecular [id number] (Capmist DM) 60-15-400 mg Tab 2. Fever, unspecified fever cause acetaminophen (TYLENOL) tablet 650 mg No follow-ups on file. Medical Decision Making Covid pending 1. Capmist prescribed for symptoms. 2. Encouraged hydration and use of humidifier as well as salt water gargles as needed 3. Advised isolation until she receives a result 4. Advised ER should she develop chest pain or shortness of breath Additional Clinical Comments Discussed over the counter medications for symptomatic management and side effects of medications. Recommended taking all medications with food and to stop medications if they develop any signs of anallergic reaction. Educated patient and/or guardian about signs and symptoms that would warrant further immediate evaluation. Recommended that they should return to urgent care, make an appointment with their family physician, or go to the emergency room if symptoms persist or get acutely worse. Recommended follow upwithin the next week with their PCP or to get established with a PCP soon in order to follow up appropriately. Subjective 61 y.o. female presents with Covid-19 Screening (Patient does not have direct exposure- notes her son works with a person who tested positive, son himself also has loss of taste but refuses to be tested. Symptoms started 07/24/21 with scratchy throat, headache. Patient states cough started today along with low grade fever. ) Illness The current episode started in the past 7 days (2 days). The problem has been gradually worsening since onset. Associated symptoms include congestion, headaches, rhinorrhea, a sore throat (scratchy),fatigue, a fever, coughing and muscle aches. Pertinent negatives include no ear pain, chest pain, shortness of breath, wheezing, abdominal pain, diarrhea, nausea, vomiting or rash. Review Of Systems Review of Systems Constitutional: Positive for fatigue and fever. Negative for chills. HENT: Positive for congestion, rhinorrhea and sore throat (scratchy). Negative for ear pain. Denies loss of taste or smell Respiratory: Positive for cough. Negative for shortness of breath and wheezing. Cardiovascular: Negative for chest pain. Gastrointestinal: Negative for abdominal pain, diarrhea, nausea and vomiting. Musculoskeletal: Positive for myalgias. Skin: Negative for rash. Neurological: Positive for headaches. Medical History Past Medical History: Diagnosis Date Breast cancer (HCC) 01/31/2019 Right-Invasive mammary carcinoma Diabetes mellitus (HCC) GERD (gastroesophageal reflux disease) Hyperlipidemia Hypertension Seasonal allergies Trigger finger of right thumb 04/06/2021 Past Surgical History: Procedure Laterality Date APPENDECTOMY BREAST BIOPSY Right 2019 BREAST LUMPECTOMY Right 02/27/2019 BREAST LUMPECTOMY W/ SENTINEL NODE, NEEDLE LOC, POSS AX DIS Right 02/27/2019 Procedure: RIGHT BREAST LUMPECTOMY WITH SENTINEL NODE BIOPSY WITH NEEDLE LOCALIZATION AND POSSIBLE AXILLARY DISSECTION; Surgeon: Braden Gee MD; Location: Main OR; Service: General Surgery SECTION, CLASSIC 1996 COLONOSCOPY 05/19/2017 Normal....Dr. Blackmon D & C WITH LEEP 1994 EXPLORATORY LAPAROTOMY for infertility MM WIRE NEEDLE LOCALIZATION RIGHT Right 02/27/2019 MM NEEDLE LOCALIZATION RIGHT 02/27/2019 MAMMOGRAPHY RADIATION Right 04/2019 trigger finger surg Right 05/2021 at [facility] BREAST BIOPSY RIGHT Right 01/31/2019 US BREAST BIOPSY RIGHT 01/31/2019, invasive mammary carcinoma US BREAST BIOPSY RIGHT Right 02/06/2019 US BREAST BIOPSY RIGHT Patient Active Problem List Diagnosis Gastroesophageal reflux disease without esophagitis Seasonal allergies Vitamin D deficiency PCO (polycystic ovaries) Non-alcoholic fatty liver disease Invasive ductal carcinoma of breast, female, right (HCC) Essential hypertension Type 2 diabetes mellitus without complication, without long-term current use of insulin (HCC) Mixed hyperlipidemia Hypercalcemia Social History Social History Tobacco Use Smoking status: Never Smoker Smokeless tobacco: Never Used Vaping Use Vaping Use: Never used Substance Use Topics Alcohol use: Not Currently Comment: SOCIALLY Drug use: No Family History Family History Problem Relation Age of Onset Heart attack Paternal Grandfather Pancreatic cancer Paternal Grandmother Lung cancer Paternal Aunt Pancreatic cancer Maternal Uncle Objective Physical Exam BP (!) 143/84 (BP Location: Right arm, Patient Position: Sitting, BP Cuff Size: X-large Adult) Pulse (!) 116 Temp (!) 101 F (38.3 C) (Infrared) Resp 16 Ht 5' 5" Wt 90.7 kg (200 lb) SpO2 94% BMI 33.28 kg/m Vision/Hearing Exam:No exam data present Physical Exam Vitals and nursing note reviewed. Constitutional: General: She is not in acute distress. Appearance: She is well-developed. She is not diaphoretic. HENT: Head: Normocephalic and atraumatic. Right Ear: External ear normal. Left Ear: External ear normal. Nose: Congestion and rhinorrhea present. Eyes: General: Right eye: No discharge. Left eye: No discharge. Conjunctiva/sclera: Conjunctivae normal. Cardiovascular: Rate and Rhythm: Tachycardia present. Pulmonary: Effort: Pulmonary effort is normal. No respiratory distress. Breath sounds: Normal breath sounds. Abdominal: General: There is no distension. Musculoskeletal: General: Normal range of motion. Cervical back: Normal range of motion. Skin: Findings: No rash. Neurological: General: No focal deficit present. Mental Status: She is alert. Psychiatric: Behavior: Behavior normal. Thought Content: Thought content normal. Judgment: Judgment normal. Procedure Notes Procedures Results No results found for this or any previous visit (from the past 168 hour(s)). No orders to display Orders Placed This Visit Orders Placed This Encounter Procedures COVID-19, Molecular Medication List At End Of Visit Current Outpatient Medications Medication Sig Dispense Refill atorvastatin (LIPITOR) 40 MG tablet Take 1 (one) tablet (40 mg total) by mouth daily . 90 tablet 1 ergocalciferol (ERGOCALCIFEROL) 1,250 mcg (50,000 unit) capsule Take 1 (one) capsule (50,000 Units total) by mouth every 14 (fourteen) days . 6 capsule 3 exemestane (AROMASIN) 25 mg tablet Take 1 (one) tablet (25 mg total) by mouth daily . 30 tablet 11 lisinopriL (PRINIVIL,ZESTRIL) 5 MG tablet Take 1 (one) tablet (5 mg total) by mouth daily . 90 tablet 1 metFORMIN (Glucophage XR) 500 MG 24 hr tablet Take 1 (one) tablet (500 mg total) by mouth daily with breakfast . 90 tablet 1 omeprazole (PRILOSEC) 40 MG capsule Take 1 (one) capsule (40 mg total) by mouth daily . 90 capsule 1 pclfnhbxtzotyfz-BD-bpkhHSWeiiu (Capmist DM) 60-15-400 mg Tab Take 1 (one) tablet by mouth 2 (two) times a day as needed . 20 tablet 0 Current Facility-Administered Medications Medication Dose Route Frequency Provider Last Rate Last Admin acetaminophen (TYLENOL) tablet 650 mg 650 mg Oral Q6H PRN Damon Coe CNP 650 mg at 07/26/21 4817 Patient Instructions We will call you with results in approximately 24-72 hours. Isolation guidelines are listed in the other discharge packet. If you develop chest pain or shortness of breath you should go to the ER. Take Tylenol and or Motrin as needed. Stay hydrated. If symptoms worsen, you should be re-evaluatedhere, ER or your doctors office. Learning About Coronavirus (COVID-19) What is coronavirus (COVID-19)? COVID-19 is a disease caused by a type of coronavirus. This illness was first found in October 2019. It has since spread worldwide. Coronaviruses are a large group of viruses. They cause the common cold. They also cause more serious illnesses like [place] respiratory syndrome (MERS) and severe acute respiratory syndrome (SARS). COVID-19 is caused by a novel coronavirus. That means it's a new type that has not been seen in people before. What are the symptoms? COVID-19 symptoms may include: Fever. Cough. Trouble breathing. Chills or repeated shaking with chills. Muscle and body aches. Headache. Sore throat. New loss of taste or smell. Vomiting. Diarrhea. In severe cases, COVID-19 can cause pneumonia and make it hard to breathe without help from a machine. It can cause . How is it diagnosed? COVID-19 is diagnosed with a viral test. This may also be called a PCR test or antigen test. It looks for evidence of the virus in your breathing passages or lungs (respiratory system). The test is most often done on a sample from the nose, throat, or lungs. It's sometimes done on a sample of saliva. One way a sample is collected is by putting a long swab into the back of your nose. How is it treated? Mild cases of COVID-19 can be treated at home. Serious cases need treatment in the hospital. Treatment may include medicines to reduce symptoms, plus breathing support such as oxygen therapy or a ventilator. Some people may be placed on their belly to help their oxygen levels. Treatments that may help people who have COVID-19 include: Antiviral medicines. These medicines treat viral infections. Remdesivir is an example. Immune-based therapy. These medicines help the immune system fight COVID-19. Examples include monoclonal antibodies. Blood thinners. These medicines help prevent blood clots. People with severe illness are at risk for blood clots. How can you protect yourself and others? The best way to protect yourself from getting sick is to: Get vaccinated. Avoid sick people. If you are not fully vaccinated: ? Wear a mask if you have to go to public areas. ? Avoid crowds and try to stay at least 6 feet away from other people. Cover your mouth with a tissue when you cough or sneeze. Wash your hands often, especially after you cough or sneeze. Use soap and water, and scrub for at least 20 seconds. If soap and water aren't available, use an alcohol-based hand testing engineer. Avoid touching your mouth, nose, and eyes. To help avoid spreading the virus to others: Get vaccinated. Cover your mouth with a tissue when you cough or sneeze. Wash your hands often, especially after you cough or sneeze. Use soap and water, and scrub for at least 20 seconds. If soap and water aren't available, use an alcohol-based hand testing engineer. If you have been exposed to the virus and are not fully vaccinated: ? Stay home. Don't go to school, work, or public areas. And don't use public transportation, ride-shares, or taxis unless you have no choice. ? Wear a mask if you have to go to public areas, like the pharmacy. If you're sick: ? Leave your home only if you need to get medical care. But call the doctor's office first so they know you're coming. And wear a mask. ? Wear a mask whenever you're around other people. ? Limit contact with pets and people in your home. If possible, stay in a separate bedroom and use a separate bathroom. ? Clean and disinfect your home every day. Use household warehouse operations associate and disinfectant wipes or sprays.Take special care to clean things that you touch with your hands. How can you self-isolate when you have COVID-19? If you have COVID-19, there are things you can do to help avoid spreading the virus to others. Limit contact with people in your home. If possible, stay in a separate bedroom and use a separate bathroom. Wear a mask when you are around other people. If you have to leave home, avoid crowds and try to stay at least 6 feet away from other people. Avoid contact with pets and other animals. Cover your mouth and nose with a tissue when you cough or sneeze. Then throw it in the trash right away. Wash your hands often, especially after you cough or sneeze. Use soap and water, and scrub for at least 20 seconds. If soap and water aren't available, use an alcohol-based hand testing engineer. Don't share personal household items. These include bedding, towels, cups and glasses, and eating utensils. Wash laundry in the warmest water allowed for the fabric type, and dry it completely. It's okay to wash other people's laundry with yours. Clean and disinfect your home. Use household warehouse operations associate and disinfectant wipes or sprays. When should you call for help? Call 911 anytime you think you may need emergency care. For example, call if you have life-threatening symptoms, such as: You have severe trouble breathing. (You can't talk at all.) You have constant chest pain or pressure. You are severely dizzy or lightheaded. You are confused or can't think clearly. You have pale, walker, or blue-colored skin or lips. You pass out (lose consciousness) or are very hard to wake up. Call your doctor now or seek immediate medical care if: You have moderate trouble breathing. (You can't speak a full sentence.) You are coughing up blood (more than about 1 teaspoon). You have signs of low blood pressure. These include feeling lightheaded; being too weak to stand; and having cold, pale, clammy skin. Watch closely for changes in your health, and be sure to contact your doctor if: Your symptoms get worse. You are not getting better as expected. You have new or worse symptoms of anxiety, depression, nightmares, or flashbacks. Call before you go to the doctor's office. Follow their instructions. And wear a mask. Current as of: August 20, 2020 Content Version: 12.9 [employer]. Care instructions adapted under license by your healthcare professional. If you have questions about a medical condition or this instruction, always ask your healthcare professional. [employer] disclaims any warranty or liability for your use of this information. documented in this [id number] History of Present illness Narrative* Dereje Trejo MD - 06/25/2021 11:46 AM EDT Images from the original note were not included. Lyn Harry 1960 [id number] HPI: Patient was here today to follow-up on her chronic medical problems. Diabetes, hypertension: Patient has been compliant with the prescribed medications without any significant adverse effects but has not been monitoring blood pressure at home. She denies any signs andsymptoms of hypoglycemia. She has been compliant with diabetic diet and also does not exercise. Herpreprandial blood sugars at home have been mostly in the range of 130 140 but her latest [id number] was at 6.4, slightly worse than the previous one. Patient's latest repeat lab test showed vitamin D level in the upper normal limits and also slightly elevated calcium level. Patient has been taking OTC calcium supplements along with high-dose vitamin D supplements. Patient Active Problem List Diagnosis Gastroesophageal reflux disease without esophagitis Seasonal allergies Vitamin D deficiency PCO (polycystic ovaries) Non-alcoholic fatty liver disease Invasive ductal carcinoma of breast, female, right (HCC) Essential hypertension Type 2 diabetes mellitus without complication, without long-term current use of insulin (HCC) Mixed hyperlipidemia Hypercalcemia Past Medical History: Diagnosis Date Breast cancer (HCC) 01/31/2019 Right-Invasive mammary carcinoma Diabetes mellitus (HCC) GERD (gastroesophageal reflux disease) Hyperlipidemia Hypertension Seasonal allergies Trigger finger of right thumb 04/06/2021 Past Surgical History: Procedure Laterality Date APPENDECTOMY BREAST BIOPSY Right 2019 BREAST LUMPECTOMY Right 02/27/2019 BREAST LUMPECTOMY W/ SENTINEL NODE, NEEDLE LOC, POSS AX DIS Right 02/27/2019 Procedure: RIGHT BREAST LUMPECTOMY WITH SENTINEL NODE BIOPSY WITH NEEDLE LOCALIZATION AND POSSIBLE AXILLARY DISSECTION; Surgeon: Braden Gee MD; Location: Main OR; Service: General Surgery SECTION, CLASSIC 1996 COLONOSCOPY 05/19/2017 Normal....Dr. Blackmon D & C WITH LEERonan 1994 EXPLORATORY LAPAROTOMY for infertility MM WIRE NEEDLE LOCALIZATION RIGHT Right 02/27/2019 MM NEEDLE LOCALIZATION RIGHT 02/27/2019 MAMMOGRAPHY RADIATION Right 04/2019 trigger finger surg Right 05/2021 at [facility] US BREAST BIOPSY RIGHT Right 01/31/2019 US BREAST BIOPSY RIGHT 01/31/2019, invasive mammary carcinoma US BREAST BIOPSY RIGHT Right 02/06/2019 US BREAST BIOPSY RIGHT Social History Socioeconomic History Marital status: Spouse name: Not on file Number of children: Not on file Years of education: Not on file Highest education level: Not on file Occupational History Not on file Tobacco Use Smoking status: Never Smoker Smokeless tobacco: Never Used Vaping Use Vaping Use: Never used Substance and Sexual Activity Alcohol use: Not Currently Comment: SOCIALLY Drug use: No Sexual activity: Yes Partners: Male control/protection: Post-menopausal Other Topics Concern Not on file Social History Narrative Not on file Social Determinants of Health Financial Resource Strain: Difficulty of Paying Living Expenses: Food Insecurity: Worried About Running Out of Food in the Last Year: Ran Out of Food in the Last Year: Transportation Needs: Lack of Transportation (Medical): Lack of Transportation (Non-Medical): Physical Activity: Days of Exercise per Week: Minutes of Exercise per Session: Stress: Feeling of Stress : Social Connections: Frequency of Communication with Friends and Family: Frequency of Social Gatherings with Friends and Family: Attends Confucianist Services: Active Member of Clubs or Organizations: Attends Club or Organization Meetings: Marital Status: Family History Problem Relation Age of Onset Heart attack Paternal Grandfather Pancreatic cancer Paternal Grandmother Lung cancer Paternal Aunt Pancreatic cancer Maternal Uncle Review of Systems Constitutional: Negative for chills, diaphoresis, fatigue, fever and unexpected weight change. Respiratory: Negative for cough, shortness of breath and wheezing. Cardiovascular: Negative for chest pain, palpitations and leg swelling. Gastrointestinal: Negative for abdominal pain, blood in stool, constipation, diarrhea, nausea and vomiting. Neurological: Negative for dizziness, light-headedness and headaches. Physical Exam: Vitals: 06/25/21 1132 BP: 115/76 BP Location: Left arm Patient Position: Sitting BP Cuff Size: Adult Pulse: 76 Resp: 14 Temp: 98 F (36.7 C) TempSrc: Infrared SpO2: 94% Weight: 91.8 kg (202 lb 6.4 oz) Height: 5' 5" Physical Exam Constitutional: General: She is not in acute distress. Neck: Vascular: No carotid bruit. Cardiovascular: Rate and Rhythm: Normal rate and regular rhythm. Heart sounds: Normal heart sounds. No murmur heard. Pulmonary: Effort: Pulmonary effort is normal. No respiratory distress. Breath sounds: Normal breath sounds. No wheezing or rales. Abdominal: General: There is no distension. Palpations: Abdomen is soft. There is no hepatomegaly. Tenderness: There is no abdominal tenderness. Assessment & Plan: 1. Type 2 diabetes mellitus without complication, without long-term current use of insulin ([facility]) Comprehensive Metabolic Panel Hemoglobin A1c 2. Essential hypertension 3. Vitamin D deficiency Vitamin D, Total, 25-OH 4. Hypercalcemia Hypertension: Good control. Continue same medication. Vitamin D deficiency and hypercalcemia: Patient has been compliant with calcium/vitamin D supplements without any significant adverse effects and her latest vitamin D level was in the upper normal limits at 84 and her calcium level was also elevated at 10.8. Hence, patient was advised to discontinue calcium supplements completely and also decrease the high-dose vitamin D supplements to 1 capsule every 2 weeks. Will repeat calcium and vitamin D levels in 3 to 4 months. Diabetes: Seems to be stable and under control though some worsening of hemoglobin A1c. Patient wasencouraged for compliance with diabetic diet. Continue same medication. Will repeat hemoglobin A1c in 3 to 4 months. Return in about 4 months (around 10/26/2021), or if symptoms worsen or fail to improve. Patient education & instructions given for: Advised patient about possible common adverse-effects from the medications, but also recommended to review the medication information package inserts for complete list of adverse effects/contraindications, drug interactions etc., before starting any new medication. Patient was also advised to immediately discontinue the medication and notify us or go to a nearby ER if experiencing any severe adverse affects from the medications. All the addressed problems were discussed with the patient and advice given to call with any concerns or return to theoffice or go to a nearby ER if the symptoms do not improve or worsen or new symptoms develop. If any referrals were placed or tests ordered at today's visit, the patient was instructed to call the office if they are not notified about the scheduling of referral or tests, within 2 weeks of today's visit. Health maintenance/preventive screening reviewed / ordered: Offered age- appropriate preventive services and screening. Screening colonoscopy April 2017: Normal colonoscopy. Please note: Portions of this chart may have been created with [employer] voice recognition software. Occasional wrong-word or "sound-like" substitutions may have occurred due to inherent limitations of the voice recognition software. Please read the chart carefully and recognize, using context, where the substitutions have occurred. documented in this [id number] History of Present illness Narrative* Marlyn Nelson PA-C - 06/18/2021 10:40 AM EDT 06/18/21 HPI: Dahiana Harry presents to the office 2 weeks status post Right thumb A-1 santana release, doing well. Her triggering is not entirely resolved, but improved. . She is complaining of swelling and stiffness. Exam: Incision is clean and dry and healing well. There is no triggering of the Right thumb, however there is stiffness of the thumb IP joint. She is able to make a composite fist. Sensation is intact to light touch. Brisk capillary refill. Skin is warm and dry. Assessment: S/P Right thumb A-1 Santana Release Plan: Sutures were removed in the office today. I discussed scar massage. She has no restrictions and can progress activity as tolerated. She is going to work on her range of motion on her own for the next week. If she struggles she will contact the office to be set up for hand therapy. I will see her back in 4 weeks to see how she is progressing. If she is doing well she may call and cancel. * Jenny Austin - 06/18/2021 10:40 AM EDT Review of Systems Constitutional: Negative for chills and fever. HENT: Negative for hearing loss. Eyes: Negative for visual disturbance. Respiratory: Negative for shortness of breath. Cardiovascular: Negative for chest pain. Gastrointestinal: Negative for abdominal pain and blood in stool. Endocrine: Negative for polydipsia. Genitourinary: Negative for hematuria. Musculoskeletal: Negative for arthralgias and myalgias. Neurological: Negative for dizziness, seizures and numbness. Hematological: Does not bruise/bleed easily. Psychiatric/Behavioral: Negative for dysphoric mood. [facility] Discharge instructions* Instructions* Hanna Ambrose RN - 06/04/2021 Images from the original note were not included. Dahiana Harry 06/04/2021 CHIQUIS VARGAS M.D. HOME INSTRUCTIONS FOR OUTPATIENT HAND SURGERY: Following your surgery, you will have a dressing on your arm or hand. Depending on the type of surgery, it may be a soft gauze dressing, bere bandage, cast or a combination of these. It is important to keep this dressing clean and dry, as it is meant to stay in place until you follow-up with the doctor or therapist. The surgeon may inform you or your family on the day of surgery if these instructions may be modified. In the setting of many small hand procedures, the wrap can be replaced with another type of bandage. If advised that it is ok, another wrap or even a waterproof band aide can be used over your incision. In all cases avoid getting the incision wet and observe it for any drainage that may appear. Your bandage should not be tight or rub you in a way that is problematic. Sometimes swelling can change this and cause a problem. If it should become tight or rub you in a way that is causing excessive discomfort in most situations loosening the wrap is the first step and can be done without concern. However, in the setting of a fracture or tendon repair please notify surgeon before unwrapping your surgical wound. Please do not apply neosporin or any other ointment on your incision until after the sutures have been removed. If you note a large amount of drainage, please contact your doctor. There will be some discomfort or pain at the operative site. This can be lessened by the use of an ice pack, elevating your hand above the level of your heart, and by the use of pain medication as needed. After the first 24 hours, you should use the operated hand to the extent your dressing will allow and make a fist 20 times an hour. This will help decrease swelling, especially in the fingers, and aid in lessening stiffness following surgery. Avoid lifting anything heavier than a gallon of milk with your surgical hand until you sutures are removed. This is most important if the surgical incision is on your palm. Lifting something too heavy could lead to the tearing out of your sutures and result wound complications. In addition, you may be instructed to begin a therapy program in the days following your surgery. If this is the case, you will be notified. If there are any questions or problems, please feel free to contact your physician by calling [phone] ([phone]). If it is after hours you can contact the clinical services consultant doctor by calling [facility] at [phone]. Prescription refills will only be done during normal business hours. Please allow 48 hours for yourprescription to be refilled. There are certain restrictions that apply to the first 24 hours following surgery, especially afterhaving a generalor regional anesthetic: 1. Do not operate power equipment today (including cars, motorcycles, power saws, drills, etc.) 2. Do not sign any legal documents today. 3. Advance diet slowly, starting with liquids. No alcoholic beverages for at least 24 hours (longer if you are taking prescription pain medication). 4. You should be accompanied by an adult for the next 24 hours. If you do not have a post-operative appointment scheduled with your doctor please call the office on the next business day for an appointment at [phone] ([phone]) documented in this [facility]07-08[facility] Nurse Note* Radha Amezquita RN - 06/04/2021 11:38 AM EDT Patient discharged at this time. IV removed and site clean and dry. Discharge instructions and prescription given to . Patient denies pain and nausea. Patient stable and no other complaints atthis time. * Radha Amezquita RN - 06/04/2021 11:36 AM EDT Patient ambulated with staff standby assist to the bathroom at this time. Voided spontaneously. * Radha Amezquita RN - 06/04/2021 11:20 AM EDT Discharge instructions provided to patient and spouse at this time, both demonstrated understandingof instructions. All questions answered at this time, no further concerns at this time. * Brianna Cobos RN - 06/04/2021 10:59 AM EDT Patient transported to PACU phase 2 via cart with TORRIE Ruiz and LOOM OPERATOR APPRENTICE. Report given to TORRIE Garcia. * Brianna Cobos RN - 06/04/2021 10:45 AM EDT OR temperature: 64.3 deg F OR humidity: 59% documented in this [facility]07-08-[facility]21 Miscellaneous Notes* Op Note - Chiquis Vargas MD - 06/04/2021 11:01 AM EDT DATE: 06/04/2021 Patient: Dahiana Harry Pre-Op Dx: Trigger thumb of right hand [M65.311] Post-Op Dx: Trigger thumb of right hand [M65.311] Procedure: Procedure(s) (LRB): A-1 SANTANA RELEASE - THUMB - RIGHT (Right) Surgeon: Surgeon(s) and Role: * Chiquis Vargas MD - Primary Supervisor [employer]ation: * No surgical staff found * ANESTHESIA TYPE: * No anesthesia type entered * ESTIMATED BLOOD LOSS: Minimal. COMPLICATIONS: None. DISPOSITION: To the recovery room in stable. INDICATIONS: Dahiana Harry is 61 y.o. years old. Dahiana presented to my office with symptoms of Triggerthumb of right hand [M65.311] and has failed non operative management. The risk and benefits of theprocedure have been discussed in detail as well as non surgical options and Dahiana does wish to proceed. OPERATIVE TECHNIQUE: After properly identifying the patient, the patient's extremity, and obtaininginformed consent, the patient was taken to the Operating Room and placed on the table in supine position where intravenous sedation was induced. Local anesthetic was injected over the A-1 santana of the affected finger, in this case the right thumb. Once local anesthetic is injected, the patient wasprepped and draped in a standard surgical fashion. Esmarch bandage was used to exsanguinate the limb and tourniquet was inflated to 250 mmHg. Once inflated, an incision was carried out directly over the A-l santana through the skin. Blunt dissection identified the flexor sheath. Ragnell retractors were placed on the radial and ulnar aspect of the flexor tendon to protect the neurovascular bundles.At this point in time, the A-1 santana was readily identified and was released throughout its entirelength. Once released the patient was asked to flex and extend the finger. The patient was able to do so without any clicking or popping. At this point in time, the wound was copiously irrigated, hemostasis obtained and the skin was closed with #4-0 Nylon. A circumferential dressing was applied andthe patient was awakened and transported to the Recovery Room in stable condition, having toleratedthe procedure well. There were no complications. * Brief Op Note - Chiquis Vargas MD - 06/04/2021 11:00 AM EDT DATE: 06/04/2021 Patient: Dahiana Harry Pre-Op Dx: Trigger thumb of right hand [M65.311] Post-Op Dx: Trigger thumb of right hand [M65.311] Procedure: Procedure(s) (LRB): A-1 SANTANA RELEASE - THUMB - RIGHT (Right) Surgeon: Surgeon(s) and Role: * Chiquis Vargas MD - Primary Supervisor [employer] Fabrication: * No surgical staff found * ANESTHESIA TYPE: * No anesthesia type entered * INTRAVENOUS FLUIDS: Per anesthesia record ESTIMATED BLOOD LOSS: Per anesthesia record Specimens: * No specimens in log * Implants: * No implants in log * COMPLICATIONS: * No complications entered in OR log * DISPOSITION: To the recovery room in stable condition documented in this [facility]07-08-2021 History and physical note* Chiquis Vargas MD - 06/04/2021 10:19 AM EDT I have examined the patient and reviewed the previous H&P and there are no changes. Chiquis Vargas MD 06/04/2021 10:19 AM * Chiquis Vargas MD - 05/26/2021 1:00 PM EDT 05/26/21 Chief Complaint Patient presents with New Patient Rt. trigger thumb HPI: Dahiana is here today in follow up of her right thumb. The last trigger finger injection did notgive her significant benefit. At this point, she hurts daily. Past Medical History: Diagnosis Date Arthritis Depression Diabetes mellitus Essential hypertension, benign Hyperlipidemia Insomnia Migraine Obesity (BMI 30-39.9) Renal disease Snoring Past Surgical History: Procedure Laterality Date TUBAL LIGATION 1996 D&C DIAGNOSTIC/THERAPEUTIC NONOBSTETRICAL 1993 APPENDECTOMY OPEN 1976 SECTION 1976 SKIN BIOPSY Left BCC left cheek excision Current Outpatient Medications: atorvastatin (LIPITOR) 40 MG Tab tablet, Take 1 tablet by mouth daily., Disp: 30 tablet, Rfl: 2 Cholecalciferol (VITAMIN D) 2000 units Cap, Take 3 capsules by mouth daily., Disp: , Rfl: cyanocobalamin 1000 MCG Tab, Take 1 tablet by mouth daily., Disp: , Rfl: fexofenadine (LAVERNE ALLERGY) 180 MG Tab tablet, Take 1 tablet by mouth daily., Disp: , Rfl: lisinopril 2.5 MG Tab tablet, Take 1 tablet by mouth daily., Disp: 30 tablet, Rfl: 2 metformin-XR 500 MG Tab SR 24 HR, Take 1 tablet by mouth every morning before breakfast., Disp: 30 tablet, Rfl: [address] capsule, Take 1 capsule by mouth every morning before breakfast. Cancel previous refills, Disp: 30 capsule, Rfl: 2 Allergies Allergen Reactions Penicillins Strong family history of penicillin allergy. Nsaids Has CKD-2 Social History Socioeconomic History Marital status: Spouse name: Not on file Number of children: Not on file Years of education: Not on file Highest education level: Not on file Occupational History Not on file Tobacco Use Smoking status: Never Smoker Smokeless tobacco: Never Used Substance and Sexual Activity Alcohol use: Yes Alcohol/week: 1.0 standard drinks Types: 1 Glasses of wine per week Drug use: No Sexual activity: Not on file Other Topics Concern Not on file Social History Narrative Not on file Social Determinants of Health Financial Resource Strain: Difficulty of Paying Living Expenses: Food Insecurity: Worried About Running Out of Food in the Last Year: Ran Out of Food in the Last Year: Transportation Needs: Lack of Transportation (Medical): Lack of Transportation (Non-Medical): Physical Activity: Days of Exercise per Week: Minutes of Exercise per Session: Stress: Feeling of Stress : Social Connections: Frequency of Communication with Friends and Family: Frequency of Social Gatherings with Friends and Family: Attends Confucianist Services: Active Member of Clubs or Organizations: Attends Club or Organization Meetings: Marital Status: Intimate Partner Violence: Fear of Current or Ex-Partner: Emotionally Abused: Physically Abused: Sexually Abused: Family History Problem Relation Age of Onset No known problems Mother Aneurysm Father Peripheral Vascular Disease Father Review of Systems Constitutional: Negative for chills, fatigue and fever. Eyes: Negative for visual disturbance. Respiratory: Negative for shortness of breath. Cardiovascular: Negative for chest pain. Gastrointestinal: Negative for abdominal pain and blood in stool. Endocrine: Negative for polydipsia. Genitourinary: Negative for hematuria. Musculoskeletal: Positive for arthralgias. Negative for myalgias. Neurological: Negative for seizures. Hematological: Does not bruise/bleed easily. Psychiatric/Behavioral: Negative for dysphoric mood. Physical Examination: Visit Vitals Temp 98.1 F (36.7 C) Ht 1.651 m (5' 5") Wt 97.1 kg (214 lb 1.1 oz) BMI 35.62 kg/m A&O x3 Lungs: Clear to auscultation Heart: Regular Rate and Rhythm Abdomen: Normoactive Bowel sounds Extremity: Examination demonstrates the right thumb is neurovascularly intact. Tenderness at the [id number], inability to flex that finger at all. Skin is warm and dry. Assessment: 1. Right trigger thumb. Plan: We discussed options. She would like to proceed with surgical intervention. Risks and benefits of surgical intervention were reviewed. She understands the risks and benefits, and does wish to proceed. She will be placed on the schedule at her convenience. Risk of melissa COVID19 during the clinton-operative period explained to patient today. The patient verbalized understanding and acceptance of these risks as well as the quarantine time between testing and surgery. The patient understands if the test is positive or symptoms develop prior to surgery the surgery will be cancelled. [facility] and physical note* Chiquis Vargas MD - 05/26/2021 1:00 PM EDT 05/26/21 Chief Complaint Patient presents with New Patient Rt. trigger thumb HPI: Dahiana is here today in follow up of her right thumb. The last trigger finger injection did notgive her significant benefit. At this point, she hurts daily. Past Medical History: Diagnosis Date Arthritis Depression Diabetes mellitus Essential hypertension, benign Hyperlipidemia Insomnia Migraine Obesity (BMI 30-39.9) Renal disease Snoring Past Surgical History: Procedure Laterality Date TUBAL LIGATION 1996 D&C DIAGNOSTIC/THERAPEUTIC NONOBSTETRICAL 1993 APPENDECTOMY OPEN 1976 SECTION 1976 SKIN BIOPSY Left BCC left cheek excision Current Outpatient Medications: atorvastatin (LIPITOR) 40 MG Tab tablet, Take 1 tablet by mouth daily., Disp: 30 tablet, Rfl: 2 Cholecalciferol (VITAMIN D) 2000 units Cap, Take 3 capsules by mouth daily., Disp: , Rfl: cyanocobalamin 1000 MCG Tab, Take 1 tablet by mouth daily., Disp: , Rfl: fexofenadine (LAVERNE ALLERGY) 180 MG Tab tablet, Take 1 tablet by mouth daily., Disp: , Rfl: lisinopril 2.5 MG Tab tablet, Take 1 tablet by mouth daily., Disp: 30 tablet, Rfl: 2 metformin-XR 500 MG Tab SR 24 HR, Take 1 tablet by mouth every morning before breakfast., Disp: 30 tablet, Rfl: 2 omepraz[address] capsule, Take 1 capsule by mouth every morning before breakfast. Cancel previous refills, Disp: 30 capsule, Rfl: 2 Allergies Allergen Reactions Penicillins Strong family history of penicillin allergy. Nsaids Has CKD-2 Social History Socioeconomic History Marital status: Spouse name: Not on file Number of children: Not on file Years of education: Not on file Highest education level: Not on file Occupational History Not on file Tobacco Use Smoking status: Never Smoker Smokeless tobacco: Never Used Substance and Sexual Activity Alcohol use: Yes Alcohol/week: 1.0 standard drinks Types: 1 Glasses of wine per week Drug use: No Sexual activity: Not on file Other Topics Concern Not on file Social History Narrative Not on file Social Determinants of Health Financial Resource Strain: Difficulty of Paying Living Expenses: Food Insecurity: Worried About Running Out of Food in the Last Year: Ran Out of Food in the Last Year: Transportation Needs: Lack of Transportation (Medical): Lack of Transportation (Non-Medical): Physical Activity: Days of Exercise per Week: Minutes of Exercise per Session: Stress: Feeling of Stress : Social Connections: Frequency of Communication with Friends and Family: Frequency of Social Gatherings with Friends and Family: Attends Confucianist Services: Active Member of Clubs or Organizations: Attends Club or Organization Meetings: Marital Status: Intimate Partner Violence: Fear of Current or Ex-Partner: Emotionally Abused: Physically Abused: Sexually Abused: Family History Problem Relation Age of Onset No known problems Mother Aneurysm Father Peripheral Vascular Disease Father Review of Systems Constitutional: Negative for chills, fatigue and fever. Eyes: Negative for visual disturbance. Respiratory: Negative for shortness of breath. Cardiovascular: Negative for chest pain. Gastrointestinal: Negative for abdominal pain and blood in stool. Endocrine: Negative for polydipsia. Genitourinary: Negative for hematuria. Musculoskeletal: Positive for arthralgias. Negative for myalgias. Neurological: Negative for seizures. Hematological: Does not bruise/bleed easily. Psychiatric/Behavioral: Negative for dysphoric mood. Physical Examination: Visit Vitals Temp 98.1 F (36.7 C) Ht 1.651 m (5' 5") Wt 97.1 kg (214 lb 1.1 oz) BMI 35.62 kg/m A&O x3 Lungs: Clear to auscultation Heart: Regular Rate and Rhythm Abdomen: Normoactive Bowel sounds Extremity: Examination demonstrates the right thumb is neurovascularly intact. Tenderness at the [id number], inability to flex that finger at all. Skin is warm and dry. Assessment: 1. Right trigger thumb. Plan: We discussed options. She would like to proceed with surgical intervention. Risks and benefits of surgical intervention were reviewed. She understands the risks and benefits, and does wish to proceed. She will be placed on the schedule at her convenience. Risk of mleissa COVID19 during the clinton-operative period explained to patient today. The patient verbalized understanding and acceptance of these risks as well as the quarantine time between testing and surgery. The patient understands if the test is positive or symptoms develop prior to surgery the surgery will be cancelled. documented in this [facility] History of Present illness Narrative* Rhiannon Steward - 05/26/2021 1:00 PM EDT Review of Systems Constitutional: Negative for chills, fatigue and fever. Eyes: Negative for visual disturbance. Respiratory: Negative for shortness of breath. Cardiovascular: Negative for chest pain. Gastrointestinal: Negative for abdominal pain and blood in stool. Endocrine: Negative for polydipsia. Genitourinary: Negative for hematuria. Musculoskeletal: Positive for arthralgias. Negative for myalgias. Neurological: Negative for seizures. Hematological: Does not bruise/bleed easily. Psychiatric/Behavioral: Negative for dysphoric mood. [facility] Instructions* Patient Instructions* Deborah Stokes PA-C - 04/12/2021 12:26 PM EDT Images from the original note were not included. Lyn, Thank you for choosing [facility] for your healthcare needs today. [facility] COVID-19 Post-swabbing Instructions We will do our best to update you as soon as we receive your test results, but if we had to send your test to be run at the lab, you may see the results on MyChart or receive a call from [facility] before we are able to contact you. You should receive a call from our COVID-19 results provider as soon as possible. Your rapid covid test is NEG today. Zmax -- antibiotic Mucinex -- expectorant If the test was due to symptoms WITHOUT significant exposure, you may return to work/school if: - you have been without a fever (100.4 F) for at least 24 hours without the use of fever reducing medication AND - your symptoms are improving If you are experiencing any nausea, vomiting, or diarrhea, unusual or worsening shortness of breath, high fevers that are not responding to fever reducing medications, feeling confused, or feeling like you are going to pass out, DIAL 911 or I would recommend going to the ER. Any significant abdominal pain, go to ER. If you have had diarrhea for a week, or if you are feeling weakness or dizziness, you should get reevaluated. Follow-up with your primary provider (or return to clinic if your do not have a primary care provider) if not better in 5 to 7 days or earlier if condition worsens. If you test NEGATIVE for COVID-19: Symptomatic for COVID-19 If you have COVID-19 symptoms (symptomatic) and you are under a 14 day quarantine because of significant exposure (which is defined as close contact with someone that has a laboratory confirmed infection from COVID-19 or a person that was diagnosed by a medical professional), then a negative COVID-19 test does not clear you from the 14 day quarantine. You were likely not clinically infectious at the time of the test. This does not mean that you will not get sick and develop symptoms. It is possible that you were in the early phase of the infection at the time of your test and you could be positive later. For these reasons: 1) If the test was due to having symptoms WITH significant exposure, you should remain in quarantine: - for the full 14 days AND - you have been without a fever (100.4 F) for at least 24 hours without the use of fever reducing medication AND - your symptoms are improving If you are unable to separate yourself completely from the COVID-19 positive person (i.e. parent caring for a child), CDC guidelines recommend you quarantine for 24 days (10 days from symptom onset of the COVID positive person PLUS 14 additional days). 2) If the test was due to symptoms WITHOUT significant exposure, you may return to work/school if: - you have been without a fever (100.4 F) for at least 24 hours without the use of fever reducing medication AND - your symptoms are improving Asymptomatic for COVID-19 If you do not have any COVID-19 symptoms (asymptomatic): 1) you and your provider may have decided together not to do asymptomatic COVID- 19 testing at this time (or your test is still pending). Your quarantine may end after 10 days if: - you remain without symptoms (without symptoms reducing medications) for the full 10 days since your last exposure to a known COVID-19 positive person - you continue to monitor symptoms for the full 14 days after exposure. If symptoms develop at any time during these 14 days, please self-isolate and contact your health care provider for further instructions as you may need further testing. 2) you and your provider may have decided together to do asymptomatic COVID-19 testing at this time. Your quarantine may end after 7 days if: - your COVID-19 test is done after day 5 (post exposure) - your COVID-19 test is negative (not detected) - you remain without symptoms (without symptom reducing medications) during your quarantine - you continue to monitor symptoms for the full 14 days after exposure. If symptoms develop at any time during these 14 days, please self-isolate and contact your health care provider for further instructions as you may need further testing. When Do I Self-Quarantine? You should quarantine if you have had a significant exposure which is defined as having been in close contact (as defined below) with someone that has a laboratory confirmed infection from COVID-19 or that person was diagnosed by a medical professional. This includes contact within 48 hours prior to when the COVID-19 positive person developed symptoms. - Quarantine is used to keep someone who might have been exposed to COVID-19 away from others. - Quarantine helps prevent spread of disease that can occur before a person knows they are sick or if they are infected with the virus without feeling symptoms. - People in quarantine should stay home, separate themselves from others, monitor their health, andfollow directions from their state or local health department. What counts as close contact? - You were within 6 feet of someone who has COVID-19 for at least 15 minutes - You provided care at home to someone who is sick with COVID-19 - You had direct physical contact with the person (touched, hugged, or kissed them) - You shared eating or drinking utensils - They sneezed, coughed, or somehow got respiratory droplets on you When and How Will I Get Results? Tests performed in the clinic will be available within 15-20 minutes from initiation of test. If your test was sent out to the lab for testing, it could take anywhere from 1-5 days after your specimen is collected. The provider/practice who placed the order for your test will notify you of your results. - If you have an active [employer] account, and your COVID-19 test is negative (not detected), then you will be notified through your [employer] account. You should call the urgent care if you have any further questions. - If your COVID-19 test is positive (detected), you will receive a phone call to discuss your results and answer any questions you might have at that time. Please make sure [facility] has your updated phone number so we can contact you. [facility] will notify the [facility] of any positive results to comply with state regulations. What Happens After I Get Tested if I Develop Worsening COVID-19 Symptoms? All patients should self-quarantine at home until they receive their test results. While self-quarantining, contact your PCP or return to the urgent care if you develop any of the following: - A fever of 103 degrees F (39.4 C) or higher - A fever that lasts more than 3 days without medication - A fever that returns after being gone for more than 24 hours - Chest pain or difficulty breathing - A worsening of current symptoms For work concerns, please contact your employer's HR department. How Do I Self-Quarantine? - Stay home until 14 days after last exposure and maintain social distance (at least 6 feet) from others at all times - Avoid contact with people at higher risk for severe illness from COVID-19 - Self-monitor for symptoms: - Check temperature twice a day - Watch for fever (100.4F or higher), cough, shortness of breath, or other CDC recognized symptoms of COVID-19 If I test positive, what about those with which I have had close contact (household members, partners, close friends, etc)? Anyone with close contact (as defined above) within 48 hours prior to when the COVID-19 positive person developed symptoms should self-quarantine. This includes during the 10 day quarantine period. So, if your family is unable to isolate from you - they must wait your 10 days, plus additional quarantine as described below. If they develop symptoms - they should quarantine for the entire 14 days from their exposure to you. A negative test, while having symptoms, does not change this recommendation. If they do not develop symptoms and are no longer exposed to you: Without testing, quarantine can end after 10 days from the last exposure to a known positive COVID person. If they test negative, and their test was done at least 5 days from their last known COVID exposure, their quarantine can end after 7 days. They must continue to monitor symptoms daily for all 14 days. However, if at any time during those 14 days they develop symptoms you must self-isolate and follow up for further evaluation. What Do I Do If I am Sick? Stay Home: If you are sick, stay home from work, school, public places, and social gatherings Social Distance: maintain 6 feet of distance from other people. Monitor Your Symptoms: If you develop fever, shortness of breath, confusion, or any respiratory symptoms, please notify your doctor immediately Cover Your Cough: Cough and sneeze into your shirt sleeve or inner elbow. Do not cough into your hands or into the air. If available, cough into a tissue and throw it into a trash can. Wash Your Hands: Wash hands often with soap and warm water and/or alcohol based hand testing engineer, scrubbing your hands for at least 20 seconds. Wash your hands after sneezing or coughing, after going to the bathroom, and before eating or drinking. Wear a Mask: Wear a face mask when around others. Always wear a face mask (if able) if you have to leave your home Don't Touch: avoid touching your eyes, nose, and mouth Don't Share: avoid sharing items with others as they can spread infection Call First: If you do need to seek urgent medical care, call the facility first to let them know you are on your way If you test positive to COVID and have mild to moderate symptoms and you meet certain criteria - you may qualify for monoclonal antibody therapy. To learn more, go to the [employer] website: [email or web address]. If you still have questions about monoclonal antibody infusion treatment, you can call , Tuesday - Tuesday 8 am - 4 pm. -400 Other COVID Questions? CDC - https://www.cdc.gov/coronavirus/2019-ncov/index.html - https://www.cdc.gov/coronavirus/2019-ncov/uj-qex-kkv-sick/quarantine.html [facility] - Website: https://coronavirus.[place].gov/wps/portal/gov/covid-19/home - Hotline: 183-5-LAC-[facility] (420-385-5431) [employer]: https://blog.[employer]/series/dyvhi-88-nbuykhptess-toolkit/ Sinusitis: Care Instructions Your Care Instructions Sinusitis is an infection of the lining of the sinus cavities in your head. Sinusitis often followsa cold. It causes pain and pressure in your head and face. In most cases, sinusitis gets better on its own in 1 to 2 weeks. But some mild symptoms may last for several weeks. Sometimes antibiotics are needed. Follow-up care is a sharma part of your treatment and safety. Be sure to make and go to all appointments, and call your doctor if you are having problems. It's also a good idea to know your test resultsand keep a list of the medicines you take. How can you care for yourself at home? Take an mspt-mhm-cqrlpjq pain medicine, such as acetaminophen (Tylenol), ibuprofen (Advil, Motrin),or naproxen (Aleve). Read and follow all instructions on the label. If the doctor prescribed antibiotics, take them as directed. Do not stop taking them just because you feel better. You need to take the full course of antibiotics. Be careful when taking gepr-axc-nrgjdin cold or flu medicines and Tylenol at the same time. Many ofthese medicines have acetaminophen, which is Tylenol. Read the labels to make sure that you are nottaking more than the recommended dose. Too much acetaminophen (Tylenol) can be harmful. Breathe warm, moist air from a steamy shower, a hot bath, or a sink filled with hot water. Avoid cold, dry air. Using a humidifier in your home may help. Follow the directions for cleaning the machine. Use saline (saltwater) nasal washes. This can help keep your nasal passages open and wash out mucusand bacteria. You can buy saline nose drops at a grocery store or drugstore. Or you can make your own at home by adding 1 teaspoon of salt and 1 teaspoon of baking soda to 2 cups of distilled water. If you make your own, fill a bulb syringe with the solution, insert the tip into your nostril, and squeeze gently. Blow your nose. Put a hot, wet towel or a warm gel pack on your face 3 or 4 times a day for 5 to 10 minutes each time. Try a decongestant nasal spray like oxymetazoline (Afrin). Do not use it for more than 3 days in a row. Using it for more than 3 days can make your congestion worse. When should you call for help? Call your doctor now or seek immediate medical care if: You have new or worse swelling or redness in your face or around your eyes. You have a new or higher fever. Watch closely for changes in your health, and be sure to contact your doctor if: You have new or worse facial pain. The mucus from your nose becomes thicker (like pus) or has new blood in it. You are not getting better as expected. Where can you learn more? Log into your personal health record on [email or web address] and enter I933 in the "Education" box to learn more about "Sinusitis: Care Instructions." Current as of: October 29, 2020 Content Version: 12.8 [employer]. Care instructions adapted under license by your healthcare professional. If you have questions about a medical condition or this instruction, always ask your healthcare professional. [employer] disclaims any warranty or liability for your use of this information. documented in this [id number] History of Present illness Narrative* Deborah Stokes PA-C - 04/12/2021 11:57 AM EDT Images from the original note were not included. Patient Name: [facility] Location: [facility] [address] [place] [id number] Date Of : Date Of Visit: 1960 04/12/2021 MRN# Provider: [id number] Deborah Stokes PA-C Chief Complaint Patient presents with Sore Throat scratchy, itchy x 6 days, both ears full, sinus pressure, cough, Assessment & Plan 1. 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 noflu. 2. Upper respiratory tract infection, unspecified type Covid-19/Influenza Order Algorithm DRUG ABUSE TREATMENT SPECIALIST poc covid test only. no flu. 3. 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 no flu. 4. Acute non-recurrent maxillary sinusitis Covid-19/Influenza Order Algorithm DRUG ABUSE TREATMENT SPECIALIST poc covid test only. no flu. 5. Sore throat Covid-19/Influenza Order Algorithm DRUG ABUSE TREATMENT SPECIALIST poc covid test only. no flu. No follow-ups on file. 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 I did not want to give pt prednisone initially - pt will check blood glucose and last hbaic 6.3. Has taken this before and not had abnl elevated bs. NO hx of dka. Pt aware of risk of DKA with prednisone. Pt is nontoxic, afebrile, w/o ams and verbalized good understanding and agreement. Additional Clinical Comments Discussed over the counter medications for symptomatic management and side effects of medications. Recommended taking all medications with food and to stop medications if they develop any signs of anallergic reaction. Educated patient and/or guardian about signs and symptoms that would warrant further immediate evaluation. Recommended that they should return to urgent care, make an appointment with their family physician, or go to the emergency room if symptoms persist or get acutely worse. Recommended follow upwithin the next week with their PCP or to get established with a PCP soon in order to follow up appropriately. Subjective 61 y.o. female presents with Sore Throat (scratchy, itchy x 6 days, both ears full, sinus pressure,cough,) HPI Review Of Systems Review of Systems Constitutional: Positive for appetite change. Negative for activity change, chills, diaphoresis, fatigue, fever and unexpected weight change. HENT: Positive for congestion, postnasal drip, rhinorrhea, sinus pressure, sinus pain, sneezing andsore throat. Negative for dental problem, drooling, ear discharge, ear pain, facial swelling, hearing loss, mouth sores, nosebleeds, tinnitus, trouble swallowing and voice change. Eyes: Negative. Respiratory: Positive for cough. Negative for apnea, choking, chest tightness, shortness of breath,wheezing and stridor. Cardiovascular: Negative. Gastrointestinal: Negative for abdominal distention, abdominal pain, anal bleeding, blood in stool,constipation, diarrhea, nausea, rectal pain and vomiting. Genitourinary: Negative. Musculoskeletal: Negative. Skin: Negative. Neurological: Negative. Hematological: Negative. Psychiatric/Behavioral: Negative for confusion. Medical History Past Medical History: Diagnosis Date Breast cancer (HCC) 01/31/2019 Right-Invasive mammary carcinoma Diabetes mellitus (HCC) GERD (gastroesophageal reflux disease) Hyperlipidemia Hypertension Seasonal allergies Past Surgical History: Procedure Laterality Date APPENDECTOMY BREAST BIOPSY Right 2019 BREAST LUMPECTOMY Right 02/27/2019 BREAST LUMPECTOMY W/ SENTINEL NODE, NEEDLE LOC, POSS AX DIS Right 02/27/2019 Procedure: RIGHT BREAST LUMPECTOMY WITH SENTINEL NODE BIOPSY WITH NEEDLE LOCALIZATION AND POSSIBLE AXILLARY DISSECTION; Surgeon: Braden Gee MD; Location: Main OR; Service: General Surgery SECTION, CLASSIC 1996 COLONOSCOPY 05/19/2017 Normal....Dr. Blackmon D & C WITH [facility] 1994 EXPLORATORY LAPAROTOMY for infertility MM NEEDLE LOCALIZATION RIGHT Right 02/27/2019 MM NEEDLE LOCALIZATION RIGHT 02/27/2019 MAMMOGRAPHY RADIATION Right 04/2019 US BREAST BIOPSY RIGHT Right 01/31/2019 US BREAST BIOPSY RIGHT 01/31/2019, invasive mammary carcinoma US BREAST BIOPSY RIGHT Right 02/06/2019 US BREAST BIOPSY RIGHT Patient Active Problem List Diagnosis Gastroesophageal reflux disease without esophagitis Seasonal allergies Vitamin D deficiency PCO (polycystic ovaries) Fatty liver Invasive ductal carcinoma of breast, female, right (HCC) Essential hypertension Trigger finger Type 2 diabetes mellitus without complication, without long-term current use of insulin (HCC) Mixed hyperlipidemia Trigger finger of right thumb Social History Social History Tobacco Use Smoking status: Never Smoker Smokeless tobacco: Never Used Vaping Use Vaping Use: Never used Substance Use Topics Alcohol use: Not Currently Comment: SOCIALLY Drug use: No Family History Family History Problem Relation Age of Onset Heart attack Paternal Grandfather Cancer Paternal Grandmother Unknown Cancer Lung cancer Paternal Aunt Breast cancer Neg Hx Objective Physical Exam BP (!) 153/95 (BP Location: Right arm, Patient Position: Sitting) Comment: recheck tea/rt Pulse 77 Temp 98 F (36.7 C) (Infrared) Resp 14 Ht 5' 5" Wt 90.7 kg (200 lb) SpO2 96% BMI 33.28 kg/m Vision/Hearing Exam:No exam data present Physical Exam Vitals and nursing note reviewed. Constitutional: General: She is not in acute distress. Appearance: Normal appearance. She is normal weight. She is ill-appearing. She is not toxic-appearing or diaphoretic. HENT: Head: Normocephalic and atraumatic. Right Ear: Hearing, ear canal and external ear normal. A middle ear effusion is present. There is no impacted cerumen. Left Ear: Hearing, ear canal and external ear normal. A middle ear effusion is present. There is noimpacted cerumen. Nose: Septal deviation, mucosal edema, congestion and rhinorrhea present. Right Nostril: No foreign body, epistaxis, septal hematoma or occlusion. Left Nostril: No foreign body, epistaxis, septal hematoma or occlusion. Right Turbinates: Enlarged and swollen. Not pale. Left Turbinates: Enlarged and swollen. Not pale. Right Sinus: Maxillary sinus tenderness present. No frontal sinus tenderness. Left Sinus: Maxillary sinus tenderness present. No frontal sinus tenderness. Mouth/Throat: Lips: Blakely. No lesions. Mouth: Mucous membranes are moist. No injury, lacerations, oral lesions or angioedema. Dentition: Normal dentition. Does not have dentures. No dental tenderness, gingival swelling, dental caries, dental abscesses or gum lesions. Tongue: No lesions. Tongue does not deviate from midline. Palate: No mass and lesions. Pharynx: Uvula midline. Posterior oropharyngeal erythema present. No pharyngeal swelling, oropharyngeal exudate or uvula swelling. Tonsils: No tonsillar exudate or tonsillar abscesses. Comments: The patient handles her own oral secretions well; no drooling, tripoding, stridor, trismus, speech dyspnea, painful or abnormal respirations. Uvula and tongue are midline without edema. Lips and fingertips acyanotic. Eyes: General: No scleral icterus. Right eye: No discharge. Left eye: No discharge. Extraocular Movements: Extraocular movements intact. Conjunctiva/sclera: Conjunctivae normal. Cardiovascular: Rate and Rhythm: Normal rate and regular rhythm. Pulses: Normal pulses. Heart sounds: Normal heart sounds. No murmur heard. No friction rub. No gallop. Pulmonary: Effort: Pulmonary effort is normal. No respiratory distress. Breath sounds: Normal breath sounds. No stridor. No wheezing, rhonchi or rales. Comments: NO CHEST WALL TTP OR CREPITUS. NO PAINFUL OR ABNL RESPS. Chest: Chest wall: No tenderness. Abdominal: General: Bowel sounds are normal. There is no distension. Palpations: Abdomen is soft. Tenderness: There is no abdominal tenderness. There is no guarding. Musculoskeletal: General: No swelling, tenderness, deformity or signs of injury. Normal range of motion. Cervical back: Normal range of motion and neck supple. No rigidity. No muscular tenderness. Right lower leg: No edema. Left lower leg: No edema. Lymphadenopathy: Cervical: Cervical adenopathy present. Skin: General: Skin is warm and dry. Capillary Refill: Capillary refill takes 2 to 3 seconds. Coloration: Skin is not jaundiced or pale. Findings: No bruising, erythema, lesion or rash. Neurological: General: No focal deficit present. Mental Status: She is alert and oriented to person, place, and time. Mental status is at baseline. Cranial Nerves: No cranial nerve deficit. Motor: No weakness. Gait: Gait normal. Psychiatric: Mood and Affect: Mood normal. Behavior: Behavior normal. Thought Content: Thought content normal. Judgment: Judgment normal. 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 no flu. COVID-19, Molecular Medication List At End Of Visit Current Outpatient Medications Medication Sig Dispense Refill atorvastatin (LIPITOR) 40 MG tablet Take 1 (one) tablet (40 mg total) by mouth daily . 90 tablet 1 calcium carbonate-vitamin D3 (CALCIUM 600 + D,3,) 600 mg(1,500mg) -400 unit per tablet Take 1 tablet by mouth 2 (two) times a day . ergocalciferol (ERGOCALCIFEROL) 1,250 mcg (50,000 unit) capsule Take 1 (one) capsule (50,000 Units total) by mouth once a week . 4 capsule 3 exemestane (AROMASIN) 25 mg tablet Take 1 (one) tablet (25 mg total) by mouth daily . 30 tablet 11 lisinopriL (PRINIVIL,ZESTRIL) 5 MG tablet Take 1 (one) tablet (5 mg total) by mouth daily . 90 tablet 1 metFORMIN (Glucophage XR) 500 MG 24 hr tablet Take 1 (one) tablet (500 mg total) by mouth daily with breakfast . 90 tablet 1 omeprazole (PRILOSEC) 40 MG capsule Take 1 (one) capsule (40 mg total) by mouth daily . 90 capsule 1 azithromycin (Zithromax Z-Davin) 250 MG tablet Take 2 tabs today, then one tab daily x 4 days . 6 tablet 0 guaiFENesin (Mucinex) 600 mg 12 hr tablet Take 1 (one) tablet (600 mg total) by mouth 2 (two) timesa day for 10 days . 20 tablet 0 predniSONE (DELTASONE) 20 MG tablet Take 2 tablets once daily x 3 days with food . 6 tablet 0 No current facility-administered medications for this visit. Patient Instructions Lyn, Thank you for choosing [facility] for your healthcare needs today. [facility] COVID-19 Post-swabbing Instructions We will do our best to update you as soon as we receive your test results, but if we had to send your test to be run at the lab, you may see the results on [employer] or receive a call from [facility] before we are able to contact you. You should receive a call from our COVID-19 results provider as soon as possible. Your rapid covid test is NEG today. Zmax -- antibiotic Mucinex -- expectorant If the test was due to symptoms WITHOUT significant exposure, you may return to work/school if: - you have been without a fever (100.4 F) for at least 24 hours without the use of fever reducing medication AND - your symptoms are improving If you are experiencing any nausea, vomiting, or diarrhea, unusual or worsening shortness of breath, high fevers that are not responding to fever reducing medications, feeling confused, or feeling like you are going to pass out, DIAL 911 or I would recommend going to the ER. Any significant abdominal pain, go to ER. If you have had diarrhea for a week, or if you are feeling weakness or dizziness, you should get reevaluated. Follow-up with your primary provider (or return to clinic if your do not have a primary care provider) if not better in 5 to 7 days or earlier if condition worsens. If you test NEGATIVE for COVID-19: Symptomatic for COVID-19 If you have COVID-19 symptoms (symptomatic) and you are under a 14 day quarantine because of significant exposure (which is defined as close contact with someone that has a laboratory confirmed infection from COVID-19 or a person that was diagnosed by a medical professional), then a negative COVID-19 test does not clear you from the 14 day quarantine. You were likely not clinically infectious at the time of the test. This does not mean that you will not get sick and develop symptoms. It is possible that you were in the early phase of the infection at the time of your test and you could be positive later. For these reasons: 1) If the test was due to having symptoms WITH significant exposure, you should remain in quarantine: - for the full 14 days AND - you have been without a fever (100.4 F) for at least 24 hours without the use of fever reducing medication AND - your symptoms are improving If you are unable to separate yourself completely from the COVID-19 positive person (i.e. parent caring for a child), CDC guidelines recommend you quarantine for 24 days (10 days from symptom onset of the COVID positive person PLUS 14 additional days). 2) If the test was due to symptoms WITHOUT significant exposure, you may return to work/school if: - you have been without a fever (100.4 F) for at least 24 hours without the use of fever reducing medication AND - your symptoms are improving Asymptomatic for COVID-19 If you do not have any COVID-19 symptoms (asymptomatic): 1) you and your provider may have decided together not to do asymptomatic COVID- 19 testing at this time (or your test is still pending). Your quarantine may end after 10 days if: - you remain without symptoms (without symptoms reducing medications) for the full 10 days since your last exposure to a known COVID-19 positive person - you continue to monitor symptoms for the full 14 days after exposure. If symptoms develop at any time during these 14 days, please self-isolate and contact your health care provider for further instructions as you may need further testing. 2) you and your provider may have decided together to do asymptomatic COVID-19 testing at this time. Your quarantine may end after 7 days if: - your COVID-19 test is done after day 5 (post exposure) - your COVID-19 test is negative (not detected) - you remain without symptoms (without symptom reducing medications) during your quarantine - you continue to monitor symptoms for the full 14 days after exposure. If symptoms develop at any time during these 14 days, please self-isolate and contact your health care provider for further instructions as you may need further testing. When Do I Self-Quarantine? You should quarantine if you have had a significant exposure which is defined as having been in close contact (as defined below) with someone that has a laboratory confirmed infection from COVID-19 or that person was diagnosed by a medical professional. This includes contact within 48 hours prior to when the COVID-19 positive person developed symptoms. - Quarantine is used to keep someone who might have been exposed to COVID-19 away from others. - Quarantine helps prevent spread of disease that can occur before a person knows they are sick or if they are infected with the virus without feeling symptoms. - People in quarantine should stay home, separate themselves from others, monitor their health, andfollow directions from their state or local health department. What counts as close contact? - You were within 6 feet of someone who has COVID-19 for at least 15 minutes - You provided care at home to someone who is sick with COVID-19 - You had direct physical contact with the person (touched, hugged, or kissed them) - You shared eating or drinking utensils - They sneezed, coughed, or somehow got respiratory droplets on you When and How Will I Get Results? Tests performed in the clinic will be available within 15-20 minutes from initiation of test. If your test was sent out to the lab for testing, it could take anywhere from 1-5 days after your specimen is collected. The provider/practice who placed the order for your test will notify you of your results. - If you have an active [employer] account, and your COVID-19 test is negative (not detected), then you will be notified through your [employer] account. You should call the urgent care if you have any further questions. - If your COVID-19 test is positive (detected), you will receive a phone call to discuss your results and answer any questions you might have at that time. Please make sure [facility] has your updated phone number so we can contact you. [facility] will notify the [facility] of any positive results to comply with state regulations. What Happens After I Get Tested if I Develop Worsening COVID-19 Symptoms? All patients should self-quarantine at home until they receive their test results. While self-quarantining, contact your PCP or return to the urgent care if you develop any of the following: - A fever of 103 degrees F (39.4 C) or higher - A fever that lasts more than 3 days without medication - A fever that returns after being gone for more than 24 hours - Chest pain or difficulty breathing - A worsening of current symptoms For work concerns, please contact your employer's HR department. How Do I Self-Quarantine? - Stay home until 14 days after last exposure and maintain social distance (at least 6 feet) from others at all times - Avoid contact with people at higher risk for severe illness from COVID-19 - Self-monitor for symptoms: - Check temperature twice a day - Watch for fever (100.4F or higher), cough, shortness of breath, or other CDC recognized symptoms of COVID-19 If I test positive, what about those with which I have had close contact (household members, partners, close friends, etc)? Anyone with close contact (as defined above) within 48 hours prior to when the COVID-19 positive person developed symptoms should self-quarantine. This includes during the 10 day quarantine period. So, if your family is unable to isolate from you - they must wait your 10 days, plus additional quarantine as described below. If they develop symptoms - they should quarantine for the entire 14 days from their exposure to you. A negative test, while having symptoms, does not change this recommendation. If they do not develop symptoms and are no longer exposed to you: Without testing, quarantine can end after 10 days from the last exposure to a known positive COVID person. If they test negative, and their test was done at least 5 days from their last known COVID exposure, their quarantine can end after 7 days. They must continue to monitor symptoms daily for all 14 days. However, if at any time during those 14 days they develop symptoms you must self-isolate and follow up for further evaluation. What Do I Do If I am Sick? Stay Home: If you are sick, stay home from work, school, public places, and social gatherings Social Distance: maintain 6 feet of distance from other people. Monitor Your Symptoms: If you develop fever, shortness of breath, confusion, or any respiratory symptoms, please notify your doctor immediately Cover Your Cough: Cough and sneeze into your shirt sleeve or inner elbow. Do not cough into your hands or into the air. If available, cough into a tissue and throw it into a trash can. Wash Your Hands: Wash hands often with soap and warm water and/or alcohol based hand testing engineer, scrubbing your hands for at least 20 seconds. Wash your hands after sneezing or coughing, after going to the bathroom, and before eating or drinking. Wear a Mask: Wear a face mask when around others. Always wear a face mask (if able) if you have to leave your home Don't Touch: avoid touching your eyes, nose, and mouth Don't Share: avoid sharing items with others as they can spread infection Call First: If you do need to seek urgent medical care, call the facility first to let them know you are on your way If you test positive to COVID and have mild to moderate symptoms and you meet certain criteria - you may qualify for monoclonal antibody therapy. To learn more, go to the [facility] website: [email or web address]. If you still have questions about monoclonal antibody infusion treatment, you can call , Tuesday - Tuesday 8 am - 4 pm. -400 Other COVID Questions? CDC - https://www.cdc.gov/coronavirus/2019-ncov/index.html - https://www.cdc.gov/coronavirus/2019-ncov/os-mhc-smg-sick/quarantine.html [facility] - Website: https://coronavirus.[place].gov/wps/portal/gov/covid-19/home - Hotline: 880-2-PYM-[facility] (182-653-8624) [facility]: https://blog.Myagi/series/bnbea-27-dbextufirqb-toolkit/ Sinusitis: Care Instructions Your Care Instructions Sinusitis is an infection of the lining of the sinus cavities in your head. Sinusitis often followsa cold. It causes pain and pressure in your head and face. In most cases, sinusitis gets better on its own in 1 to 2 weeks. But some mild symptoms may last for several weeks. Sometimes antibiotics are needed. Follow-up care is a sharma part of your treatment and safety. Be sure to make and go to all appointments, and call your doctor if you are having problems. It's also a good idea to know your test resultsand keep a list of the medicines you take. How can you care for yourself at home? Take an vsda-fqv-kskrtlb pain medicine, such as acetaminophen (Tylenol), ibuprofen (Advil, Motrin),or naproxen (Aleve). Read and follow all instructions on the label. If the doctor prescribed antibiotics, take them as directed. Do not stop taking them just because you feel better. You need to take the full course of antibiotics. Be careful when taking javb-xsk-jnzybkj cold or flu medicines and Tylenol at the same time. Many ofthese medicines have acetaminophen, which is Tylenol. Read the labels to make sure that you are nottaking more than the recommended dose. Too much acetaminophen (Tylenol) can be harmful. Breathe warm, moist air from a steamy shower, a hot bath, or a sink filled with hot water. Avoid cold, dry air. Using a humidifier in your home may help. Follow the directions for cleaning the machine. Use saline (saltwater) nasal washes. This can help keep your nasal passages open and wash out mucusand bacteria. You can buy saline nose drops at a grocery store or drugstore. Or you can make your own at home by adding 1 teaspoon of salt and 1 teaspoon of baking soda to 2 cups of distilled water. If you make your own, fill a bulb syringe with the solution, insert the tip into your nostril, and squeeze gently. Blow your nose. Put a hot, wet towel or a warm gel pack on your face 3 or 4 times a day for 5 to 10 minutes each time. Try a decongestant nasal spray like oxymetazoline (Afrin). Do not use it for more than 3 days in a row. Using it for more than 3 days can make your congestion worse. When should you call for help? Call your doctor now or seek immediate medical care if: You have new or worse swelling or redness in your face or around your eyes. You have a new or higher fever. Watch closely for changes in your health, and be sure to contact your doctor if: You have new or worse facial pain. The mucus from your nose becomes thicker (like pus) or has new blood in it. You are not getting better as expected. Where can you learn more? Log into your personal health record on [email or web address] and enter I933 in the "Education" box to learn more about "Sinusitis: Care Instructions." Current as of: October 29, 2020 Content Version: 12.8 [employer]. Care instructions adapted under license by your healthcare professional. If you have questions about a medical condition or this instruction, always ask your healthcare professional. [employer] disclaims any warranty or liability for your use of this information. documented in this [id number] History of Present illness Narrative* Lyn Jamison MD - 04/06/2021 1:59 PM EDT Subjective: Patient ID: Lyn Harry is a 61 y.o. female. HPI: Patient is a 61-year-old female with bilateral trigger thumbs she is here today because the right one is bothersome enough that she would like to have surgery. Review of Systems: Review of Systems Constitutional: Negative for activity change, appetite change, chills, fatigue and fever. HENT: Negative for congestion and trouble swallowing. Respiratory: Negative for chest tightness and shortness of breath. Cardiovascular: Negative for chest pain and palpitations. Gastrointestinal: Negative for constipation and diarrhea. Genitourinary: Negative for difficulty urinating and hematuria. Musculoskeletal: Negative for arthralgias, back pain, gait problem, joint swelling, myalgias, neck pain and neck stiffness. Neurological: Negative for light-headedness and headaches. Hematological: Negative for adenopathy. Does not bruise/bleed easily. Patient Active Problem List Diagnosis Gastroesophageal reflux disease without esophagitis Seasonal allergies Vitamin D deficiency PCO (polycystic ovaries) Fatty liver Invasive ductal carcinoma of breast, female, right (HCC) Essential hypertension Trigger finger Type 2 diabetes mellitus without complication, without long-term current use of insulin (HCC) Mixed hyperlipidemia Trigger finger of right thumb Objective: Physical Exam The patient is a 61-year-old female. I reviewed medications, allergies, and history. I reviewed previous record studies. I reviewed her OARRS and NARxCHECK reports. PHYSICAL EXAMINATION General: She is well-developed and well-nourished, in no acute distress, alert and oriented x3 withcranial nerves 2 through 12 intact. Gait: Normal. Psychiatric: Patient's mood, affect, and behavior appropriate for age, diagnosis, and office visit. Head: Normocephalic. Neck: Supple, with good range of motion. Eyes: Extraocular exam within normal limits. Skin: Warm, clear, and dry, without trophic changes. Vascular: Pulses are 2+ and symmetrical in both upper extremities. Neurologic: Patient has numbness and tingling in either upper extremity. Extremities: The patient has tender nodule in the A1 santana of both thumbs, right worse than left. She is able to flex the IP joint of the left thumb but is really unable to flex the right because ofthe pain. PLAN She understands her treatment options with risks, complications, and potential benefits and wishes to proceed with surgery. Imaging Studies: No results found. Assessment: 1. Trigger finger of right thumb Plan: 1. Orders Placed This Encounter Procedures Case Request Operating Room: RELEASE TRIGGER FINGER No follow-ups on file. documented in this [id number] History of Present illness Narrative* Ronit Sinha CNP - 03/24/2021 2:18 PM EDT Associated Order(s): Tendon Sheath Injection: Flexor Tendon Sheath Post-Procedure Diagnose(s): Trigger finger of left thumb Tendon Sheath Injection: Flexor Tendon Sheath Performed by: Ronit Sinha CNP Authorized by: Ronit Sinha CNP Consent given by: Patient Time out: Immediately prior to the procedure a time out was called Timeout performed at: 03/24/2021 2:18 PM Physician or proceduralist has discussed critical or nonroutine steps, procedure duration and anticipated blood loss: Yes Indications: Pain Location: Thumb Laterality: Left Prep: patient was prepped and draped in usual sterile fashion Needle size: 22 G Approach: Volar Medications: 40 mg triamcinolone acetonide 40 mg/mL Anesthetic used: Ethyl Chloride Patient tolerance: Patient tolerated the procedure well with no immediate complications * Ronit Sinha CNP - 03/24/2021 2:15 PM EDT Patient is a 61 year old female here today for bilateral trigger thumb injections. Her right thumb was injected 09/16/2020, and her left thumb was injected 06/10/2020. Both of these done by myself theleft one lasted up until recently, the right one did not help this time. She states both of her thumbs are catching and triggering again. She is wanting to proceed with surgery at this time on the right thumb and do the injection on the left thumb. Injection given without difficulty. Discussed if the injection does not help in the left thumb this time she may want to have surgery on that one as well. 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 Pre op appointment scheduled with Dr. Jamison for 04/06/2021. She understands and agrees to proceed. documented in this [id number] History of Present illness Narrative* Dereje Trejo MD - 04/06/2019 7:53 PM EDT Lyn Harry 1960 [id number] HPI: Patient was here today for an acute visit complaining of diarrhea and right rib pain. Patient stated today that she started having diarrhea with loose watery stool after her last visit here couple of days ago. She has had some nausea without vomiting 2 days ago associated with low-grade fever and then started having diarrhea with loose watery stools. No significant abdominal pain orblood in the stool. She had almost 10 bowel movements yesterday and had 5 bowel movements today so far. Denies any known sick contacts with similar symptoms. Also denies eating outside food lately. Nausea and fever symptoms have resolved now. She denies any use of antibiotics recently. Today, patient also complains of mild to moderate intermittent aching pain in the lower part of herright ribs and the pain symptoms have started almost 6 days ago. She seems to have intermittent pain right at one spot on her ribs and she indicated the pain to be in the right lower anterior ribs inthe midclavicular line. She denies any known trauma or injury to the site that may have resulted inthis pain. Patient Active Problem List Diagnosis SNOMED CT(R) Type 2 diabetes mellitus (HCC) TYPE 2 DIABETES MELLITUS Mixed hyperlipidemia MIXED HYPERLIPIDEMIA GERD without esophagitis GASTROESOPHAGEAL REFLUX DISEASE WITHOUT ESOPHAGITIS Seasonal allergies SEASONAL ALLERGY Vitamin D deficiency VITAMIN D DEFICIENCY PCOS (polycystic ovarian syndrome) POLYCYSTIC OVARIES NAFL (nonalcoholic fatty liver) NON-ALCOHOLIC FATTY LIVER Invasive ductal carcinoma of breast, female, right (HCC) INFILTRATING DUCT CARCINOMA OF RIGHT FEMALE BREAST Essential hypertension ESSENTIAL HYPERTENSION Past Medical History: Diagnosis Date Breast cancer (HCC) 01/31/2019 Right-Invasive mammary carcinoma Diabetes mellitus (HCC) Elevated blood-pressure reading, without diagnosis of hypertension 01/02/2019 GERD (gastroesophageal reflux disease) Hyperlipidemia Hypertension Seasonal allergies Past Surgical History: Procedure Laterality Date APPENDECTOMY BREAST BIOPSY Right ultrasound BREAST LUMPECTOMY W/ SENTINEL NODE, NEEDLE LOC, POSS AX DIS Right 02/27/2019 Procedure: RIGHT BREAST LUMPECTOMY WITH SENTINEL NODE BIOPSY WITH NEEDLE LOCALIZATION AND POSSIBLE AXILLARY DISSECTION; Surgeon: Braden Gee MD; Location: Main OR; Service: General Surgery SECTION, CLASSIC 1996 COLONOSCOPY 05/19/2017 Normal....Dr. Blackmon D & C WITH A[place]IDE 1994 EXPLORATORY LAPAROTOMY for infertility MM NEEDLE LOCALIZATION RIGHT Right 02/27/2019 MM NEEDLE LOCALIZATION RIGHT 02/27/2019 MAMMOGRAPHY US BREAST BIOPSY RIGHT Right 01/31/2019 US BREAST BIOPSY RIGHT 01/31/2019, invasive mammary carcinoma US BREAST BIOPSY RIGHT Right 02/06/2019 US BREAST BIOPSY RIGHT Social History Socioeconomic History Marital status: Spouse name: Not on file Number of children: Not on file Years of education: Not on file Highest education level: Not on file Social Needs Financial resource strain: Not on file Food insecurity - worry: Not on file Food insecurity - inability: Not on file Transportation needs - medical: Not on file Transportation needs - non-medical: Not on file Occupational History Not on file Tobacco Use Smoking status: Never Smoker Smokeless tobacco: Never Used Substance and Sexual Activity Alcohol use: Not Currently Comment: SOCIALLY Drug use: No Sexual activity: Not on file Other Topics Concern Not on file Social History Narrative Not on file Family History Problem Relation Age of Onset Aneurysm Father Heart attack Paternal Grandfather Cancer Paternal Grandmother Review of Systems Constitutional: Positive for fatigue. Negative for appetite change, chills, diaphoresis and fever. Respiratory: Negative for cough, shortness of breath and wheezing. Cardiovascular: Negative for chest pain, palpitations and leg swelling. Gastrointestinal: Negative for abdominal distention, abdominal pain, blood in stool, constipation, nausea and vomiting. Physical Exam: Vitals: 04/06/19 1639 BP: (P) 132/87 Pulse: (P) 88 Resp: (P) 18 Temp: (P) 98.6 F (37 C) TempSrc: (P) Oral SpO2: (P) 96% Weight: (P) 94.1 kg (207 lb 6.4 oz) Height: (P) 5' 5" Physical Exam Constitutional: She appears well-nourished. No distress. Cardiovascular: Normal rate, regular rhythm, normal heart sounds and intact distal pulses. No murmur heard. Pulmonary/Chest: Effort normal and breath sounds normal. No respiratory distress. She has no wheezes. She has no rales. Abdominal: Soft. Bowel sounds are normal. She exhibits no distension. There is no tenderness. Thereis no rebound. Musculoskeletal: She exhibits no edema. No significant tenderness in the right lower ribs Assessment & Plan: SNOMED CT(R) 1. Gastroenteritis GASTROENTERITIS 2. Rib pain on right side RIB PAIN XR Ribs Right 3+ Views (Standard) Nausea without vomiting, low-grade fever, diarrhea: Possibly secondary to viral gastroenteritis. Her diarrhea seems to have improved today compared to yesterday. Hence, will hold off on any further testing for now. Patient was encouraged for electrolyte rich oral fluids. She was advised to call us back if her diarrhea persist even after 2 to 3 days, so that we can consider ordering further tests.Patient was also counseled for food hygiene and was counseled for precautionary measures to preventthe spread of infection. Right rib pain: Patient seems to have intermittent pain in the right lower ribs. Ordered a rib x-ray to rule out any bone pathology, particularly given her history of breast cancer. Return in about 3 months (around 07/07/2019), or if symptoms worsen or fail to improve. Patient education & instructions given for: Patient was advised to avoid smoking, alcohol and any illicit drug abuse. Patient was also counseled for fall precautions. Details of medical condition explained and patient/caregiver was warned about the adverse consequences of uncontrolled medical conditions. Also cautioned about possible common adverse-effects and drug interactions of prescribed/OTC medications and also OTC/herbal supplements. Patient was recommended to review the medication information pamphlets/package inserts for complete list of adverse effects/contraindications, drug interactions etc., before starting any new medication. Patient was advisedto watch for any adverse effects, and instructed to immediately discontinue the medication and callus or go to ER if experiencing any adverse affects from the medications. Advised not to drive/drinkalcohol/use heavy machinery when taking narcotic/other sedating medications. Counseling for diet and exercise provided. If any referrals were placed at today's visit, the patient was instructed to call the office if they haven't heard anything about the referral within 2 weeks of today's visit. All the addressed problems were discussed with the patient and advice given to call with any concerns or return to the office or go to a nearby ER if the symptoms do not improve or worsen or new symptoms develop. Health maintenance/preventive screening reviewed / ordered: Offered age- appropriate preventive services and screening. Please note: Portions of this chart may have been created with [employer] voice recognition software. Occasional wrong-word or "sound-like" substitutions may have occurred due to inherent limitations of the voice recognition software. Please read the chart carefully and recognize, using context, where the substitutions have occurred. Dereje Trejo MD [facility] Diagnosis Trigger finger of left thumb- Primary Trigger thumb, right thumb [facility] Diagnosis Trigger finger of right thumb- Primary Trigger finger of right thumb- Primary [facility]* Diagnosis Trigger finger of right thumb- Primary Suspected COVID-19 virus infection- Primary Upper respiratory tract infection, unspecified type Cough Acute non-recurrent maxillary sinusitis Sore throat Acute pharyngitis Trigger finger of right thumb [facility]* Diagnosis Thumb pain, right- Primary Preop testing- Primary Preoperative examination, unspecified Trigger thumb of right hand Trigger finger (acquired) [facility] Diagnosis Post-op pain- Primary Other acute postoperative pain [facility] [place] [facility]* Diagnosis S/P trigger finger release- Rt thumb- Primary documented in this encounter [facility]* Diagnosis Vitamin D deficiency- Primary Type 2 diabetes mellitus without complication, without long-term current use of insulin ([facility]) [facility] Diagnosis Type 2 diabetes mellitus without complication, without long-term current use of insulin ([facility])- Primary Essential hypertension Unspecified essential hypertension Vitamin D deficiency Hypercalcemia [facility]* Diagnosis Exposure to 2018 novel coronavirus- Primary Fever, unspecified fever cause [facility]* Diagnosis Lab test positive for detection of COVID-19 virus- Primary [facility]* Diagnosis Invasive ductal carcinoma of breast, female, right (HCC)- Primary [facility]* Diagnosis Type 2 diabetes mellitus without complication, without long-term current use of insulin ([facility])- Primary Mixed hyperlipidemia Essential hypertension Unspecified essential hypertension [facility]* Diagnosis Gastroenteritis- Primary Other and unspecified noninfectious gastroenteritis and colitis Rib pain on right side [facility]* Diagnosis Type 2 diabetes mellitus without complication, without long-term current use of insulin ([facility])- Primary Essential hypertension Unspecified essential hypertension Gastroesophageal reflux disease without esophagitis Esophageal reflux Vitamin D deficiency [facility]* Diagnosis Invasive ductal carcinoma of breast, female, right (HCC)- Primary Type 2 diabetes mellitus without complication, without long-term current use of insulin ([facility]) Essential hypertension Unspecified essential hypertension [facility]* Diagnosis Invasive ductal carcinoma of breast, female, right (HCC) [facility]* Diagnosis Invasive ductal carcinoma of breast, female, right (HCC)- Primary [facility]* Diagnosis Non-recurrent acute suppurative otitis media of left ear without spontaneous rupture of tympanic membrane- Primary Elevated blood pressure reading with diagnosis of hypertension [facility]* Diagnosis Nausea and vomiting, unspecified vomiting type- Primary Diarrhea, unspecified type Calculus of gallbladder without cholecystitis without obstruction [facility]* Diagnosis Nausea and vomiting, unspecified vomiting type Diarrhea, unspecified type Calculus of gallbladder without cholecystitis without obstruction Nausea and vomiting, unspecified vomiting type Diarrhea, unspecified type Calculus of gallbladder without cholecystitis without obstruction [facility]* Diagnosis Nausea and vomiting Nausea with vomiting Diarrhea Calculus of gallbladder without cholecystitis without obstruction Type 2 diabetes mellitus without complication, without long-term current use of insulin (HCC)- Primary Essential hypertension Unspecified essential hypertension PCO (polycystic ovaries) Polycystic ovaries Invasive ductal carcinoma of breast, female, right (HCC) Calculus of gallbladder without cholecystitis without obstruction Nausea and vomiting, unspecified vomiting type Diarrhea, unspecified type Calculus of gallbladder without cholecystitis without obstruction [facility]* Diagnosis S/P laparoscopic cholecystectomy- Primary Other postprocedural status [facility]* Diagnosis Type 2 diabetes mellitus without complication, without long-term current use of insulin (HCC)- Primary Essential hypertension Unspecified essential hypertension Healthcare maintenance Invasive ductal carcinoma of breast, female, right ([facility]CC) [facility] Diagnosis Invasive ductal carcinoma of breast, female, right (HCC)- Primary Essential hypertension Unspecified essential hypertension Arthralgia, unspecified joint [facility]* Diagnosis Type 2 diabetes mellitus without complication, without long-term current use of insulin (HCC) [facility]* Diagnosis Type 2 diabetes mellitus without complication, without long-term current use of insulin (HCC)- Primary Gastroesophageal reflux disease without esophagitis Esophageal reflux [facility]* Diagnosis Type 2 diabetes mellitus without complication, without long-term current use of insulin (HCC) [facility]* Diagnosis Invasive ductal carcinoma of breast, female, right (HCC) [facility]* Diagnosis Invasive ductal carcinoma of breast, female, right (HCC)- Primary [facility]* Diagnosis Type 2 diabetes mellitus without complication, without long-term current use of insulin (HCC)- Primary Right elbow pain Pain in joint, upper arm Mixed hyperlipidemia Gastroesophageal reflux disease without esophagitis Esophageal reflux Essential hypertension Unspecified essential hypertension Encounter for immunization [facility]* Diagnosis Acute non-recurrent sinusitis, unspecified location- Primary Acute cough [facility] [place] [facility]* Diagnosis Encounter for screening for osteoporosis- Primary Invasive ductal carcinoma of breast, female, right (HCC) [facility]* Diagnosis Invasive ductal carcinoma of breast, female, right (HCC)- Primary [facility]* Diagnosis Type 2 diabetes mellitus without complication, without long-term current use of insulin (HCC)- Primary Plantar fasciitis Plantar fascial fibromatosis Pap smear for cervical cancer screening Screening for malignant neoplasm of the cervix Invasive ductal carcinoma of breast, female, right (HCC) Healthcare maintenance [facility]* Diagnosis Neoplasm of uncertain behavior of skin- Primary Actinic keratoses Actinic keratosis Multiple benign nevi Solar lentigo Other dyschromia Seborrheic keratosis History of nonmelanoma skin cancer documented in this encounter [facility] note* Diagnosis Basal cell carcinoma (BCC) of right lower leg [facility] [place] [facility]* Diagnosis Invasive ductal carcinoma of breast, female, right (HCC)- Primary Essential hypertension Unspecified essential hypertension Type 2 diabetes mellitus without complication, without long-term current use of insulin (HCC) [facility]* Diagnosis Type 2 diabetes mellitus without complication, without long-term current use of insulin (HCC) Gastroesophageal reflux disease without esophagitis Esophageal reflux Essential hypertension Unspecified essential hypertension [facility] [place] [facility]* Diagnosis Encounter for skin care- Primary History of nonmelanoma skin cancer Solar lentigo Other dyschromia Seborrheic keratosis Multiple benign melanocytic nevi of both upper extremities, both lower extremities, and trunk Hemangioma of skin Hemangioma of skin and subcutaneous tissue Dermatofibroma Benign neoplasm of skin, site unspecified Neoplasm of uncertain behavior of skin Actinic keratosis [facility] [place] [facility]* Diagnosis Invasive ductal carcinoma of breast, female, right (HCC)- Primary Type 2 diabetes mellitus without complication, without long-term current use of insulin (HCC) Essential hypertension Unspecified essential hypertension [facility]* Diagnosis Type 2 diabetes mellitus without complication, without long-term current use of insulin (HCC) [facility] [facility] Diagnosis Basal cell carcinoma (BCC) of skin of left lower extremity including hip documented in this encounter [facility] note* Diagnosis Nausea and vomiting, unspecified vomiting type Diarrhea, unspecified type Calculus of gallbladder without cholecystitis without obstruction Mixed hyperlipidemia Type 2 diabetes mellitus without complication, without long-term current use of insulin (HCC) Gastroesophageal reflux disease without esophagitis Esophageal reflux Essential hypertension Unspecified essential hypertension Obesity (BMI 30.0-34.9) Pre-op examination Type 2 diabetes mellitus without complication, without long-term current use of insulin (HCC)- Primary Essential hypertension Unspecified essential hypertension PCO (polycystic ovaries) Polycystic ovaries Invasive ductal carcinoma of breast, female, right (HCC) Calculus of gallbladder without cholecystitis without obstruction Type 2 diabetes mellitus without complication, without long-term current use of insulin (HCC)- Primary Essential hypertension Unspecified essential hypertension Healthcare maintenance Invasive ductal carcinoma of breast, female, right (HCC) Type 2 diabetes mellitus without complication, without long-term current use of insulin (HCC)- Primary Gastroesophageal reflux disease without esophagitis Esophageal reflux Type 2 diabetes mellitus without complication, without long-term current use of insulin (HCC)- Primary Right elbow pain Pain in joint, upper arm Mixed hyperlipidemia Gastroesophageal reflux disease without esophagitis Esophageal reflux Essential hypertension Unspecified essential hypertension Encounter for immunization Type 2 diabetes mellitus without complication, without long-term current use of insulin (HCC)- Primary Plantar fasciitis Plantar fascial fibromatosis Pap smear for cervical cancer screening Screening for malignant neoplasm of the cervix Invasive ductal carcinoma of breast, female, right (HCC) Healthcare maintenance Type 2 diabetes mellitus without complication, without long-term current use of insulin (HCC)- Primary Essential hypertension Unspecified essential hypertension Gastroesophageal reflux disease without esophagitis Esophageal reflux Encounter for screening mammogram for malignant neoplasm of breast Ear ringing, right documented in this encounter [facility] note* Diagnosis Nausea and vomiting, unspecified vomiting type Diarrhea, unspecified type Calculus of gallbladder without cholecystitis without obstruction Mixed hyperlipidemia Type 2 diabetes mellitus without complication, without long-term current use of insulin (HCC) Gastroesophageal reflux disease without esophagitis Esophageal reflux Essential hypertension Unspecified essential hypertension Obesity (BMI 30.0-34.9) Pre-op examination Type 2 diabetes mellitus without complication, without long-term current use of insulin (HCC)- Primary Essential hypertension Unspecified essential hypertension PCO (polycystic ovaries) Polycystic ovaries Invasive ductal carcinoma of breast, female, right (HCC) Calculus of gallbladder without cholecystitis without obstruction Type 2 diabetes mellitus without complication, without long-term current use of insulin (HCC)- Primary Essential hypertension Unspecified essential hypertension Healthcare maintenance Invasive ductal carcinoma of breast, female, right (HCC) Type 2 diabetes mellitus without complication, without long-term current use of insulin (HCC)- Primary Gastroesophageal reflux disease without esophagitis Esophageal reflux Type 2 diabetes mellitus without complication, without long-term current use of insulin (HCC)- Primary Right elbow pain Pain in joint, upper arm Mixed hyperlipidemia Gastroesophageal reflux disease without esophagitis Esophageal reflux Essential hypertension Unspecified essential hypertension Encounter for immunization Type 2 diabetes mellitus without complication, without long-term current use of insulin (HCC)- Primary Plantar fasciitis Plantar fascial fibromatosis Pap smear for cervical cancer screening Screening for malignant neoplasm of the cervix Invasive ductal carcinoma of breast, female, right (HCC) Healthcare maintenance Sensorineural hearing loss, bilateral- Primary Ear ringing, right [facility] [place] [facility] Diagnosis Nausea and vomiting, unspecified vomiting type Diarrhea, unspecified type Calculus of gallbladder without cholecystitis without obstruction Mixed hyperlipidemia Type 2 diabetes mellitus without complication, without long-term current use of insulin (HCC) Gastroesophageal reflux disease without esophagitis Esophageal reflux Essential hypertension Unspecified essential hypertension Obesity (BMI 30.0-34.9) Pre-op examination Type 2 diabetes mellitus without complication, without long-term current use of insulin (HCC)- Primary Essential hypertension Unspecified essential hypertension PCO (polycystic ovaries) Polycystic ovaries Invasive ductal carcinoma of breast, female, right (HCC) Calculus of gallbladder without cholecystitis without obstruction Type 2 diabetes mellitus without complication, without long-term current use of insulin (HCC)- Primary Essential hypertension Unspecified essential hypertension Healthcare maintenance Invasive ductal carcinoma of breast, female, right (HCC) Type 2 diabetes mellitus without complication, without long-term current use of insulin (HCC)- Primary Gastroesophageal reflux disease without esophagitis Esophageal reflux Type 2 diabetes mellitus without complication, without long-term current use of insulin (HCC)- Primary Right elbow pain Pain in joint, upper arm Mixed hyperlipidemia Gastroesophageal reflux disease without esophagitis Esophageal reflux Essential hypertension Unspecified essential hypertension Encounter for immunization Type 2 diabetes mellitus without complication, without long-term current use of insulin (HCC)- Primary Plantar fasciitis Plantar fascial fibromatosis Pap smear for cervical cancer screening Screening for malignant neoplasm of the cervix Invasive ductal carcinoma of breast, female, right (HCC) Healthcare maintenance Tinnitus of both ears- Primary Unspecified tinnitus SNHL (sensory-neural hearing loss), asymmetrical Sensorineural hearing loss, asymmetrical Ear ringing, right Excessive cerumen in right ear canal [facility] Nausea and vomiting, unspecified vomiting type Diarrhea, unspecified type Calculus of gallbladder without cholecystitis without obstruction Mixed hyperlipidemia Type 2 diabetes mellitus without complication, without long-term current use of insulin (HCC) Gastroesophageal reflux disease without esophagitis Esophageal reflux Essential hypertension Unspecified essential hypertension Obesity (BMI 30.0-34.9) Pre-op examination Type 2 diabetes mellitus without complication, without long-term current use of insulin (HCC)- Primary Essential hypertension Unspecified essential hypertension PCO (polycystic ovaries) Polycystic ovaries Invasive ductal carcinoma of breast, female, right (HCC) Calculus of gallbladder without cholecystitis without obstruction Type 2 diabetes mellitus without complication, without long-term current use of insulin (HCC)- Primary Essential hypertension Unspecified essential hypertension Healthcare maintenance Invasive ductal carcinoma of breast, female, right (HCC) Type 2 diabetes mellitus without complication, without long-term current use of insulin (HCC)- Primary Gastroesophageal reflux disease without esophagitis Esophageal reflux Type 2 diabetes mellitus without complication, without long-term current use of insulin (HCC)- Primary Right elbow pain Pain in joint, upper arm Mixed hyperlipidemia Gastroesophageal reflux disease without esophagitis Esophageal reflux Essential hypertension Unspecified essential hypertension Encounter for immunization Type 2 diabetes mellitus without complication, without long-term current use of insulin (HCC)- Primary Plantar fasciitis Plantar fascial fibromatosis Pap smear for cervical cancer screening Screening for malignant neoplasm of the cervix Invasive ductal carcinoma of breast, female, right (HCC) Healthcare maintenance Fatigue, unspecified type- Primary Asymptomatic menopause Aromatase inhibitor use History of breast cancer Personal history of malignant neoplasm of breast Invasive ductal carcinoma of breast, female, right (HCC) Family history of pancreatic cancer Family history of malignant neoplasm of gastrointestinal tract Screening [facility] for [facility] Diagnosis Nausea and vomiting, unspecified vomiting type Diarrhea, unspecified type Calculus of gallbladder without cholecystitis without obstruction Mixed hyperlipidemia Type 2 diabetes mellitus without complication, without long-term current use of insulin (HCC) Gastroesophageal reflux disease without esophagitis Esophageal reflux Essential hypertension Unspecified essential hypertension Obesity (BMI 30.0-34.9) Pre-op examination Type 2 diabetes mellitus without complication, without long-term current use of insulin (HCC)- Primary Essential hypertension Unspecified essential hypertension PCO (polycystic ovaries) Polycystic ovaries Invasive ductal carcinoma of breast, female, right (HCC) Calculus of gallbladder without cholecystitis without obstruction Type 2 diabetes mellitus without complication, without long-term current use of insulin (HCC)- Primary Essential hypertension Unspecified essential hypertension Healthcare maintenance Invasive ductal carcinoma of breast, female, right (HCC) Type 2 diabetes mellitus without complication, without long-term current use of insulin (HCC)- Primary Gastroesophageal reflux disease without esophagitis Esophageal reflux Type 2 diabetes mellitus without complication, without long-term current use of insulin (HCC)- Primary Right elbow pain Pain in joint, upper arm Mixed hyperlipidemia Gastroesophageal reflux disease without esophagitis Esophageal reflux Essential hypertension Unspecified essential hypertension Encounter for immunization Type 2 diabetes mellitus without complication, without long-term current use of insulin (HCC)- Primary Plantar fasciitis Plantar fascial fibromatosis Pap smear for cervical cancer screening Screening for malignant neoplasm of the cervix Invasive ductal carcinoma of breast, female, right (HCC) Healthcare maintenance Hypercalcemia- Primary [facility] [place] [facility]* Diagnosis Nausea and vomiting, unspecified vomiting type Diarrhea, unspecified type Calculus of gallbladder without cholecystitis without obstruction Mixed hyperlipidemia Type 2 diabetes mellitus without complication, without long-term current use of insulin (HCC) Gastroesophageal reflux disease without esophagitis Esophageal reflux Essential hypertension Unspecified essential hypertension Obesity (BMI 30.0-34.9) Pre-op examination Type 2 diabetes mellitus without complication, without long-term current use of insulin (HCC)- Primary Essential hypertension Unspecified essential hypertension PCO (polycystic ovaries) Polycystic ovaries Invasive ductal carcinoma of breast, female, right (HCC) Calculus of gallbladder without cholecystitis without obstruction Type 2 diabetes mellitus without complication, without long-term current use of insulin (HCC)- Primary Essential hypertension Unspecified essential hypertension Healthcare maintenance Invasive ductal carcinoma of breast, female, right (HCC) Type 2 diabetes mellitus without complication, without long-term current use of insulin (HCC)- Primary Gastroesophageal reflux disease without esophagitis Esophageal reflux Type 2 diabetes mellitus without complication, without long-term current use of insulin (HCC)- Primary Right elbow pain Pain in joint, upper arm Mixed hyperlipidemia Gastroesophageal reflux disease without esophagitis Esophageal reflux Essential hypertension Unspecified essential hypertension Encounter for immunization Type 2 diabetes mellitus without complication, without long-term current use of insulin (HCC)- Primary Plantar fasciitis Plantar fascial fibromatosis Pap smear for cervical cancer screening Screening for malignant neoplasm of the cervix Invasive ductal carcinoma of breast, female, right (HCC) Healthcare maintenance Invasive ductal carcinoma of breast, female, right (HCC)- Primary [facility] [place] [facility]* Diagnosis Nausea and vomiting, unspecified vomiting type Diarrhea, unspecified type Calculus of gallbladder without cholecystitis without obstruction Mixed hyperlipidemia Type 2 diabetes mellitus without complication, without long-term current use of insulin (HCC) Gastroesophageal reflux disease without esophagitis Esophageal reflux Essential hypertension Unspecified essential hypertension Obesity (BMI 30.0-34.9) Pre-op examination Type 2 diabetes mellitus without complication, without long-term current use of insulin (HCC)- Primary Essential hypertension Unspecified essential hypertension PCO (polycystic ovaries) Polycystic ovaries Invasive ductal carcinoma of breast, female, right (HCC) Calculus of gallbladder without cholecystitis without obstruction Type 2 diabetes mellitus without complication, without long-term current use of insulin (HCC)- Primary Essential hypertension Unspecified essential hypertension Healthcare maintenance Invasive ductal carcinoma of breast, female, right (HCC) Type 2 diabetes mellitus without complication, without long-term current use of insulin (HCC)- Primary Gastroesophageal reflux disease without esophagitis Esophageal reflux Type 2 diabetes mellitus without complication, without long-term current use of insulin (HCC)- Primary Right elbow pain Pain in joint, upper arm Mixed hyperlipidemia Gastroesophageal reflux disease without esophagitis Esophageal reflux Essential hypertension Unspecified essential hypertension Encounter for immunization Type 2 diabetes mellitus without complication, without long-term current use of insulin (HCC)- Primary Plantar fasciitis Plantar fascial fibromatosis Pap smear for cervical cancer screening Screening for malignant neoplasm of the cervix Invasive ductal carcinoma of breast, female, right (HCC) Healthcare maintenance Hypothyroidism, unspecified type- Primary [facility] [place] [facility]* Diagnosis Nausea and vomiting, unspecified vomiting type Diarrhea, unspecified type Calculus of gallbladder without cholecystitis without obstruction Mixed hyperlipidemia Type 2 diabetes mellitus without complication, without long-term current use of insulin (HCC) Gastroesophageal reflux disease without esophagitis Esophageal reflux Essential hypertension Unspecified essential hypertension Obesity (BMI 30.0-34.9) Pre-op examination Type 2 diabetes mellitus without complication, without long-term current use of insulin (HCC)- Primary Essential hypertension Unspecified essential hypertension PCO (polycystic ovaries) Polycystic ovaries Invasive ductal carcinoma of breast, female, right (HCC) Calculus of gallbladder without cholecystitis without obstruction Type 2 diabetes mellitus without complication, without long-term current use of insulin (HCC)- Primary Essential hypertension Unspecified essential hypertension Healthcare maintenance Invasive ductal carcinoma of breast, female, right (HCC) Type 2 diabetes mellitus without complication, without long-term current use of insulin (HCC)- Primary Gastroesophageal reflux disease without esophagitis Esophageal reflux Type 2 diabetes mellitus without complication, without long-term current use of insulin (HCC)- Primary Right elbow pain Pain in joint, upper arm Mixed hyperlipidemia Gastroesophageal reflux disease without esophagitis Esophageal reflux Essential hypertension Unspecified essential hypertension Encounter for immunization Type 2 diabetes mellitus without complication, without long-term current use of insulin (HCC)- Primary Plantar fasciitis Plantar fascial fibromatosis Pap smear for cervical cancer screening Screening for malignant neoplasm of the cervix Invasive ductal carcinoma of breast, female, right (HCC) Healthcare maintenance Hyperparathyroidism (HCC)- Primary Hyperparathyroidism, unspecified Hypothyroidism, unspecified type [facility] [place] [facility]* Diagnosis Nausea and vomiting, unspecified vomiting type Diarrhea, unspecified type Calculus of gallbladder without cholecystitis without obstruction Mixed hyperlipidemia Type 2 diabetes mellitus without complication, without long-term current use of insulin (HCC) Gastroesophageal reflux disease without esophagitis Esophageal reflux Essential hypertension Unspecified essential hypertension Obesity (BMI 30.0-34.9) Pre-op examination Type 2 diabetes mellitus without complication, without long-term current use of insulin (HCC)- Primary Essential hypertension Unspecified essential hypertension PCO (polycystic ovaries) Polycystic ovaries Invasive ductal carcinoma of breast, female, right (HCC) Calculus of gallbladder without cholecystitis without obstruction Type 2 diabetes mellitus without complication, without long-term current use of insulin (HCC)- Primary Essential hypertension Unspecified essential hypertension Healthcare maintenance Invasive ductal carcinoma of breast, female, right (HCC) Type 2 diabetes mellitus without complication, without long-term current use of insulin (HCC)- Primary Gastroesophageal reflux disease without esophagitis Esophageal reflux Type 2 diabetes mellitus without complication, without long-term current use of insulin (HCC)- Primary Right elbow pain Pain in joint, upper arm Mixed hyperlipidemia Gastroesophageal reflux disease without esophagitis Esophageal reflux Essential hypertension Unspecified essential hypertension Encounter for immunization Type 2 diabetes mellitus without complication, without long-term current use of insulin (HCC)- Primary Plantar fasciitis Plantar fascial fibromatosis Pap smear for cervical cancer screening Screening for malignant neoplasm of the cervix Invasive ductal carcinoma of breast, female, right (HCC) Healthcare maintenance Hyperparathyroidism (HCC)- Primary Hyperparathyroidism, unspecified Hyperparathyroidism (HCC) Hyperparathyroidism, unspecified [facility] noteNo assessment information availableBloomington Medical Services Work Phone: Evaluation note* Diagnosis Nausea and vomiting, unspecified vomiting type Diarrhea, unspecified type Calculus of gallbladder without cholecystitis without obstruction Mixed hyperlipidemia Type 2 diabetes mellitus without complication, without long-term current use of insulin (HCC) Gastroesophageal reflux disease without esophagitis Esophageal reflux Essential hypertension Unspecified essential hypertension Obesity (BMI 30.0-34.9) Pre-op examination Type 2 diabetes mellitus without complication, without long-term current use of insulin (HCC)- Primary Essential hypertension Unspecified essential hypertension PCO (polycystic ovaries) Polycystic ovaries Invasive ductal carcinoma of breast, female, right (HCC) Calculus of gallbladder without cholecystitis without obstruction Type 2 diabetes mellitus without complication, without long-term current use of insulin (HCC)- Primary Essential hypertension Unspecified essential hypertension Healthcare maintenance Invasive ductal carcinoma of breast, female, right (HCC) Type 2 diabetes mellitus without complication, without long-term current use of insulin (HCC)- Primary Gastroesophageal reflux disease without esophagitis Esophageal reflux Type 2 diabetes mellitus without complication, without long-term current use of insulin (HCC)- Primary Right elbow pain Pain in joint, upper arm Mixed hyperlipidemia Gastroesophageal reflux disease without esophagitis Esophageal reflux Essential hypertension Unspecified essential hypertension Encounter for immunization Type 2 diabetes mellitus without complication, without long-term current use of insulin (HCC)- Primary Plantar fasciitis Plantar fascial fibromatosis Pap smear for cervical cancer screening Screening for malignant neoplasm of the cervix Invasive ductal carcinoma of breast, female, right (HCC) Healthcare maintenance Invasive ductal carcinoma of breast, female, right (HCC)- Primary Family history of pancreatic cancer Family history of malignant neoplasm of gastrointestinal tract Encounter for nonprocreative genetic counseling [facility] Attachments The following attachments cannot be sent through Care Everywhere. * Otitis Media (Macedonian) [facility]* Attachments The following attachments cannot be sent through Care Everywhere. * Sinusitis: Acute (Macedonian) [facility]Reason for referral (narrative)* Consultation (Routine) - Closed Specialty Diagnoses / Procedures Referred By Contac t Referred To Contact Dermatology Diagnoses Basal cell carcinoma (BCC) of right lower leg Procedures AL OFFICE/OUTPATIENT [facility] 60-74 MINUTES Shannan Cevallos PA-C [address] [facility] [address] [place] [address] Leslee Flores MD [address] [place] [address] Referral ID Status Reason Start Date Expiration Date V isits Requested Visits Authorized [id number] Closed Specialty Services Required 11/10/2023 11/09/2024 [address] [facility] [address] [place] [facility] ([facility]arrative)No reason for referral information availableGlen White Medical Services Work Phone: Reason for visit Narrative* Evaluate and Treat (Routine) - Closed Specialty Diagnoses / Procedures Referred By Quoc sam Referred To Contact Otolaryngology Diagnoses Ear ringing, right Lee, Sebas Sari, [employer] [address] [facility] [address] [place] [address] Phone: tel: fax: Gwen Michele, Bernardo [address] [place] [address] Phone: tel: fax: Referral ID Status Reason Start Date Expiration Date Visits Re quested Visits Authorized [id number] Closed 12/05/2024 11/27/2025 1 1 [facility] Summary Purpose Family History No Family History Records FoundNo Family History Records FoundNo Family History Records FoundNo Family History Records FoundNo Family History Records FoundNo Family History Records FoundNo Family History Records FoundNo Family History Records FoundNo Family History Records FoundNo Family History Records FoundNo Family History Records Found Advance Directives No Advanced Directives Records FoundDocuments on File Type Date Recorded Patient Telephone Appointment Clerk Expl anation Advance Directives and Livin g Will 04/09/2019 2:22 PM Advance Directives and Livin g Will 04/17/2019 1:23 PM Power of [employer] 04/17/2019 1:23 PM Documents on File Type Date Recorded Patient Telephone Appointment Clerk Expl anation Advance Directives and Livin g Will 04/09/2019 2:22 PM Advance Directives and Livin g Will 04/17/2019 1:23 PM Power of [place] 04/17/2019 1:23 PM Documents on File Type Date Recorded Patient Telephone Appointment Clerk Expl anation Advance Directives and Livin g Will 01/22/2020 1:39 PM Advance Directives and Livin g Will 01/22/2020 1:38 PM Power of [place] 04/17/2019 1:23 PM Documents on File Type Date Recorded Patient Telephone Appointment Clerk Expl anation Advance Directives and Livin g Will 01/22/2020 1:39 PM Advance Directives and Livin g Will 01/22/2020 1:38 PM Power of [place] 04/17/2019 1:23 PM Documents on File Type Date Recorded Patient Telephone Appointment Clerk Expl anation Advance Directives and Livin g Will 08/21/2020 5:34 PM Advance Directives and Livin g Will 01/22/2020 1:38 PM Power of [place] 04/17/2019 1:23 PM Documents on File Type Date Recorded Patient Telephone Appointment Clerk Expl anation Advance Directives and Livin g Will 08/21/2020 5:34 PM Advance Directives and Livin g Will 01/22/2020 1:38 PM Power of Tin Roofer 04/17/2019 1:23 PM Documents on File Type Date Recorded Patient Telephone Appointment Clerk Expl anation Advance Directives and Livin g Will 01/22/2021 2:30 PM Advance Directives and Livin g Will 01/22/2020 1:38 PM Power of [place]er 04/17/2019 1:23 PM Documents on File Type Date Recorded Patient Telephone Appointment Clerk Expl anation Advance Directives and Livin g Will 01/22/2021 2:30 PM Advance Directives and Livin g Will 01/22/2020 1:38 PM Power of [place]er 04/17/2019 1:23 PM Documents on File Type Date Recorded Patient Telephone Appointment Clerk Expl anation Advance Directives and Living Will 02/23/2021 12:09 PM NO PAPERWORK IN [place] Advance Directives and Living Will 01/22/2020 1:38 PM Power of [place] Roofer 04/17/2019 1:23 PM Documents on File Type Date Recorded Patient Telephone Appointment Clerk Expl anation Advance Directives and Living Will 02/23/2021 12:09 PM NO PAPERWORK IN [place] Advance Directives and Living Will 01/22/2020 1:38 PM Power of [place] Roofer 04/17/2019 1:23 PM Documents on File Type Date Recorded Patient Telephone Appointment Clerk Expl anation Advance Directives and Livin g Will 01/25/2022 2:52 PM Advance Directives and Livin g Will 01/22/2020 1:38 PM Power of [place] Roofer 04/17/2019 1:23 PM Documents on File Type Date Recorded Patient Telephone Appointment Clerk Expl anation Advance Directives and Livin g Will 01/25/2022 2:52 PM Advance Directives and Livin g Will 01/22/2020 1:38 PM Power of [place] Ro[employer]er 04/17/2019 1:23 PM Documents on File Type Date Recorded Patient Telephone Appointment Clerk Expl anation Power of [place] Ro[employer]er 04/17/2019 1:23 PM Documents on File Type Date Recorded Patient Telephone Appointment Clerk Expl anation Power of [employer] Roofer 04/17/2019 1:23 PM Reason for Referral Status Reason Specialty Diagnoses / Procedures Referred By Contact Referred To Contact Pending Review Radiology Diagnoses Breast cancer screening Procedures Mammography Screening Bilateral Dereje Trejo MD [address] [place] [address] Status Reason Specialty Diagnoses / Procedures Referred By Contact Referred To Contact Authorized Radiology Diagnoses Abnormal mammogram of right breast Procedures US Breast Biopsy Right Braden Gee MD [address] [place] [address] Status Reason Specialty Diagnoses / Procedures Referred By Contact Referred To Contact Pending Review Radiology Diagnoses Malignant neoplasm of right female breast, unspecified estrogen receptor status, unspecified site of breast (HCC) Procedures NM Lymphoscintigram NM [place] Nodes Injection Only Braden Gee MD [address] [place] [address] Status Reason Specialty Diagnoses / Procedures Referred By Contact Referred To Contact Closed Hematology/Oncol og y / Oncology Diagnoses Invasive ductal carcinoma of breast, female, right (HCC) Braden Gee MD [address] [place] [address] [place] Garrett MD [address] [place] [address] Status Reason Specialty Diagnoses / Procedures Referred By Contact Referred To Contact Authorized Radiation Oncology Diagnoses Invasive ductal carcinoma of breast, female, right (HCC) [place] Garrett MD [address] [place] [address] Leno Pelletier MD [address] [place] [address] Status Reason Specialty Diagnoses / Procedures Referred By Contact Referred To Contact Pending Review Radiology Diagnoses Invasive ductal carcinoma of breast, female, right (HCC) Procedures Mammography Diagnostic Geovanny Bilateral Mammography Diagnostic Right Braden Gee MD [address] [place] [address] [place] [id number] Status Reason Specialty Diagnoses / Procedures Referred By Contact Referred To Contact New Request Radiology Diagnoses Axillary fullness Procedures US Axilla Only Right (Breast Related) Braden Gee MD [address] [place] [address] Status Reason Specialty Diagnoses / Procedures Referred By Contact Referred To Contact Authorized Radiology Diagnoses Invasive ductal carcinoma of breast, female, right (HCC) Procedures Mammography Screening Geovanny Bilateral [place] Garrett MD [address] [place] [address] Phone: Status Reason Specialty Diagnoses / Procedures Re ferred By Contact Referred To Contact Authorized Radiology Diagnoses Invasive ductal carcinoma of breast, female, right (HCC) Procedures XR Bone Density DEXA Axial and Appendicular [place] Garrett MD [address] [place] [address] Status Reason Specialty Diagnoses / Procedures Referred By Contact Referred To Contact Pending Review Radiology Diagnoses Breast cancer (HCC) Procedures Mammography Breast Specimen Braden Gee MD [address] [place] [address] [phone] Status Reason Specialty Diagnoses / Procedures Referred By Contact Referred To Contact Pending Review Radiology Diagnoses Malignant neoplasm of right female breast, unspecified estrogen receptor status, unspecified site of breast (HCC) Procedures Mammography Needle Localization Right Braden Gee MD [address] [place] [address] [phone] Status Reason Specialty Diagnoses / Procedures Referre d By Contact Referred To Contact Closed Radiology Diagnoses Invasive ductal carcinoma of breast, female, right (HCC) Procedures Mammography Screening Geovanny Bilateral [place] Garrett MD [address] [place] [address] Status Reason Specialty Diagnoses / Procedures Re ferred By Contact Referred To Contact Authorized Radiology Diagnoses Invasive ductal carcinoma of breast, female, right (HCC) Procedures XR Bone Density DEXA Axial and Appendicular [place] Garrett MD [address] [place] [address] Status Reason Specialty Diagnoses / Procedures Referred By Contact Referred To Contact New Request Radiology Diagnoses Neck swelling Procedures US Soft Tissue Neck and Thyroid [place] Garrett MD [address] [place] [address] Status Reason Specialty Diagnoses / Procedures Referred By Contact Referred To Contact Authorized Hematology/Oncol o gy / Oncology Diagnoses Invasive ductal carcinoma of breast, female, right (HCC) Braden Gee MD [address] [place] [address] [place] Garrett MD [address] [place] [address] Status Reason Specialty Diagnoses / Procedures Referred By Contact Referred To Contact Pending Review Radiology Diagnoses Malignant neoplasm of right female breast, unspecified estrogen receptor status, unspecified site of breast (HCC) Procedures Mammography Needle Localization Right Braden Gee MD [address] [place] [address] Status Reason Specialty Diagnoses / Procedures Referred By Contact Referred To Contact Pending Review Radiology Diagnoses Malignant neoplasm of right female breast, unspecified estrogen receptor status, unspecified site of breast (HCC) Procedures NM [place] Nodes Injection Only Braden Gee MD [address] [place] [address] Status Reason Specialty Diagnoses / Procedures Referre d By Contact Referred To Contact Closed Radiology Diagnoses Invasive ductal carcinoma of breast, female, right (HCC) Procedures XR Bone Density DEXA Axial and Appendicular [place] Garrett MD [address] [place] [address] Status Reason Specialty Diagnoses / Procedures Referred By Contact Referred To Contact Pending Review Radiology Diagnoses Invasive ductal carcinoma of breast, female, right (HCC) Procedures Mammography Screening Left Braden Gee MD [address] [place] [address] [place] [phone] Status Reason Specialty Diagnoses / Procedures Referred By Contact Referred To Contact Pending Review Radiology Diagnoses Invasive ductal carcinoma of breast, female, right (HCC) Procedures Mammography Diagnostic Right Braden Gee MD [address] [place] [address] [place] [phone] Status Reason Specialty Diagnoses / Procedures Referred By Contact Referred To Contact New Request Diagnoses Thumb pain, right Procedures XR THUMB RIGHT Chiquis Vargas MD [address] [id number] Specialty Diagnoses / Procedures Referred By Contac t Referred To Contact Infusion Therapy Diagnoses Lab test positive for detection of COVID-19 virus Mikki Sarmiento, [employer] [address] [place] [address] Specialty Infusion [address] [place] [phone] Referral ID Status Reason Start Date Expiration Date V isits Requested Visits Authorized [id number] Closed Specialty Services Required/Prerna ent's Best Interest 07/29/2021 07/29/2022 1 1 Specialty Diagnoses / Procedures Referred By Contac t Referred To Contact Radiology Diagnoses Invasive ductal carcinoma of breast, female, right (HCC) Procedures Mammography Screening Geovanny Bilateral [place] Garrett MD [address] [place] [phone] Referral ID Status Reason Start Date Expiration Date V isits Requested Visits Authorized [id number] Authorized 01/26/2023 01/26/2024 1 1 Specialty Diagnoses / Procedures Referred By Contac t Referred To Contact General Surgery Diagnoses Nausea and vomiting, unspecified vomiting type Diarrhea, unspecified type Calculus of gallbladder without cholecystitis without obstruction Dereje Trejo MD [address] [place] [address] Braden Gee MD [address] [place] [id number] Referral ID Status Reason Start Date Expiration Date V isits Requested Visits Authorized [id number] Authorized 07/19/2022 07/19/2023 1 1 Specialty Diagnoses / Procedures Referred By Contac t Referred To Contact Radiology Diagnoses Encounter for screening for osteoporosis Invasive ductal carcinoma of breast, female, right (HCC) Procedures XR Bone Density DEXA Axial and Appendicular [place] Garrett MD [address] [place] [address] Referral ID Status Reason Start Date Expiration Date V isits Requested Visits Authorized [id number] Authorized 09/01/2023 08/31/2024 1 1 History of Present Illness * Dereje Trejo MD - 01/02/2019 4:31 PM EST Lyn Harry 1960 [id number] HPI: Patient was here today to follow-up on her chronic medical problems. Diabetes, hyperlipidemia: Patient has been compliant with the prescribed medications without any significant adverse effects and has been compliant with diabetic, low fat/low cholesterol diet. Has not been doing any regular aerobic exercise lately. Did not lose any weight since after her last visithere. Latest hemoglobin A1c was at 6.6. Her latest lipid panel also showed cholesterol within the target range with an LDL at 66. Patient also stated today that she does have a known history of fatty liver but her latest LFTs were within normal limits. She denies any right upper quadrant abdominal pain. Does not drink much alcohol. Patient's blood pressure was also elevated in the hypertension range today. Patient does not have any known history of elevated blood pressure or hypertension. Has not been monitoring her blood pressure at home. She currently takes a small dose of lisinopril just for kidney protection. Patient Active Problem List Diagnosis SNOMED CT(R) Type 2 diabetes mellitus (HCC) TYPE 2 DIABETES MELLITUS Mixed hyperlipidemia MIXED HYPERLIPIDEMIA GERD without esophagitis GASTROESOPHAGEAL REFLUX DISEASE WITHOUT ESOPHAGITIS Seasonal allergies SEASONAL ALLERGY Vitamin B12 deficiency COBALAMIN DEFICIENCY Vitamin D deficiency VITAMIN D DEFICIENCY PCOS (polycystic ovarian syndrome) POLYCYSTIC OVARIES Elevated blood-pressure reading, without diagnosis of hypertension ELEVATED BLOOD-PRESSURE READING WITHOUT DIAGNOSIS OF HYPERTENSION NAFL (nonalcoholic fatty liver) NON-ALCOHOLIC FATTY LIVER Past Medical History: Diagnosis Date Diabetes mellitus (HCC) GERD (gastroesophageal reflux disease) Hyperlipidemia Seasonal allergies Past Surgical History: Procedure Laterality Date APPENDECTOMY SECTION, CLASSIC 1996 D & C WITH LEEP 1994 Social History Socioeconomic History Marital status: Spouse name: Not on file Number of children: Not on file Years of education: Not on file Highest education level: Not on file Social Needs Financial resource strain: Not on file Food insecurity - worry: Not on file Food insecurity - inability: Not on file Transportation needs - medical: Not on file Transportation needs - non-medical: Not on file Occupational History Not on file Tobacco Use Smoking status: Never Smoker Smokeless tobacco: Never Used Substance and Sexual Activity Alcohol use: Yes Comment: SOCIALLY Drug use: No Sexual activity: Not on file Other Topics Concern Not on file Social History Narrative Not on file Family History Problem Relation Age of Onset Aneurysm Father Heart attack Paternal Grandfather Review of Systems Constitutional: Negative for appetite change, chills, fatigue, fever and unexpected weight change. Respiratory: Negative for cough, shortness of breath and wheezing. Cardiovascular: Negative for chest pain, palpitations and leg swelling. Gastrointestinal: Negative for abdominal pain, blood in stool, constipation, diarrhea, nausea and vomiting. Endocrine: Negative for cold intolerance, heat intolerance, polydipsia, polyphagia and polyuria. Genitourinary: Negative for dysuria. Neurological: Negative for dizziness, light-headedness, numbness and headaches. Psychiatric/Behavioral: Negative for dysphoric mood and sleep disturbance. The patient is not nervous/anxious. Physical Exam: Vitals: 01/02/19 1618 01/02/19 1643 BP: (!) 146/82 (!) 146/98 BP Location: Right arm Patient Position: Sitting BP Cuff Size: Adult Pulse: 72 Resp: 16 Temp: 98.5 F (36.9 C) TempSrc: Oral SpO2: 96% Weight: 99.7 kg (219 lb 12.8 oz) Height: 5' 4.75" Physical Exam Constitutional: She appears well-nourished. No distress. Neck: Carotid bruit is not present. Cardiovascular: Normal rate, regular rhythm, normal heart sounds and intact distal pulses. No murmur heard. Pulmonary/Chest: Effort normal and breath sounds normal. No respiratory distress. She has no wheezes. She has no rales. Abdominal: Soft. She exhibits no distension. There is no hepatosplenomegaly. There is no tenderness. Musculoskeletal: She exhibits no edema. Assessment & Plan: SNOMED CT(R) 1. Type 2 diabetes mellitus without complication, without long-term current use of insulin (HCC) TYPE 2 DIABETES MELLITUS WITHOUT COMPLICATION Microalbumin, Urine, Random Hemoglobin A1c Comprehensive Metabolic Panel 2. Mixed hyperlipidemia MIXED HYPERLIPIDEMIA 3. NAFL (nonalcoholic fatty liver) NON-ALCOHOLIC FATTY LIVER 4. Elevated blood-pressure reading, without diagnosis of hypertension ELEVATED BLOOD-PRESSURE READING WITHOUT DIAGNOSIS OF HYPERTENSION 5. Need for hepatitis C screening test VIRAL SCREENING STATUS Hepatitis C Antibody 6. Breast cancer screening PATIENT ENCOUNTER STATUS Mammography Screening Bilateral Diabetes: Seems to be under control though slight worsening of hemoglobin A1c. Advised to continue same medication. Patient was again counseled for diabetic diet, regular exercise and encouraged to lose weight. Will repeat hemoglobin A1c in 3 months. Hyperlipidemia: Seems to be under control. Continue same medication. Encouraged for compliance withlow-fat and low-cholesterol diet. Latest labs were reviewed and discussed in detail with patient. Nonalcoholic fatty liver disease: Discussed possible complications from fatty liver including possible progression to liver cirrhosis. Advised patient to lose weight, stay away from alcohol. Elevated blood pressure: Patient's blood pressure was significantly elevated in the hypertension range today. Patient does not have any known diagnosed history of hypertension though she is taking a small dose of lisinopril for kidney protection. Patient was counseled for low-sodium DASH diet and encouraged to start monitoring blood pressure at home and target blood pressure goals were also discussed today. She was advised to call us back if the blood pressure at home is out of the target rangeso that we can increase the dose of the lisinopril. Return in about 3 months (around 04/01/2019), or if symptoms worsen or fail to improve. Patient education & instructions given for: Patient was advised to avoid smoking, alcohol. Patient was also counseled for fall precautions. Details of medical condition explained and patient/caregiver was warned about the adverse consequences of uncontrolled medical conditions. Also cautioned about possible common adverse-effects and drug interactions of prescribed/OTC medications and also OTC/herbal supplements. Patient was recommended to review the medication information pamphlets/package inserts for complete list of adverse effects/contraindications, drug interactions etc., before starting any new medication. Patient was advisedto watch for any adverse effects, and instructed to immediately discontinue the medication and callus or go to ER if experiencing any adverse affects from the medications. Advised not to drive/drinkalcohol/use heavy machinery when taking narcotic/other sedating medications. Counseling for diet and exercise provided. All the addressed problems were discussed with the patient and advice given to call with any concerns or return to the office or go to a nearby ER if the symptoms do not improve or worsen or new symptoms develop. Health maintenance/preventive screening reviewed / ordered: Offered age- appropriate preventive services and screening. Ordered a repeat screening mammogram and also a hepatitis C antibody for screening Please note: Portions of this chart may have been created with [employer] voice recognition software. Occasional wrong-word or "sound-like" substitutions may have occurred due to inherent limitations of the voice recognition software. Please read the chart carefully and recognize, using context, where the substitutions have occurred. Dereje Trejo MD in this encounter* Braden Gee MD - 01/30/2019 2:02 PM EST BREAST CONSULT HISTORY & PHYSICAL EXAMINATION Patient Name: Lyn Harry MR #: [id number] : 1960 Physicians: Dereje Trejo MD (Family); No ref. provider found (Referring) History of Present Illness: The patient is a 58 y.o. female past medical history of diabetes GERD hyperlipidemia and seasonal allergies referred for abnormality seen on a recent screening mammography. Patient states that she has been getting regular mammograms not quite on an annual basis but had one a year ago. Denies any previous abnormal mammograms and denies any previous biopsy. On this most recent mammogram she was noted to have a persistent asymmetry in the right breast and a cystic-like lesion in the left breast. On spot compression imaging on the right breast her architectural distortion did not disperse and a nodule was identified on her right breast ultrasound. She denies any palpable mass in the right breast. No nipple retraction or drainage. Denies family history of breast cancer and no history of ovarian or endometrial cancer. Risk Factors Age of menarche at 17 years Age of menopause at 56 years. 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 control pills: yes. Hormone replacement therapy: yes. Caffeine intake yes History of prior breast biopsy no History of prior breast cancer no Family History : Breast cancer no Ovarian Cancer no Endometrial cancer no Family History of breast disease no History: I have reviewed the PMHx, PSHx, SHx, FHx in EMR with the patient during this encounter face to faceand patient agrees with the documentation Past Medical History: Diagnosis Date Diabetes mellitus (HCC) GERD (gastroesophageal reflux disease) Hyperlipidemia Obesity Seasonal allergies Past Surgical History: Procedure Laterality Date APPENDECTOMY SECTION, CLASSIC 1996 COLONOSCOPY 05/19/2017 Normal....Dr. Blackmon D & C WITH LEEP 1994 EXPLORATORY LAPAROTOMY for infertility Family History Problem Relation Age of Onset Aneurysm Father Heart attack Paternal Grandfather Cancer Paternal Grandmother Social History Socioeconomic History Marital status: Spouse name: Not on file Number of children: Not on file Years of education: Not on file Highest education level: Not on file Social Needs Financial resource strain: Not on file Food insecurity - worry: Not on file Food insecurity - inability: Not on file Transportation needs - medical: Not on file Transportation needs - non-medical: Not on file Occupational History Not on file Tobacco Use Smoking status: Never Smoker Smokeless tobacco: Never Used Substance and Sexual Activity Alcohol use: Not Currently Comment: SOCIALLY Drug use: No Sexual activity: Not on file Other Topics Concern Not on file Social History Narrative Not on file Allergy Information: I have reviewed the patient's allergies. Penicillins and Nsaids (non-steroidal anti-inflammatory drug) Home Medications: Outpatient Medications as of 01/30/2019 Medication Sig aspirin 81 MG EC tablet Take 1 (one) tablet (81 mg total) by mouth daily. atorvastatin (LIPITOR) 40 MG tablet Take 1 (one) tablet (40 mg total) by mouth daily. cholecalciferol, vitamin D3, 2,000 unit cap Take 6,000 Units by mouth . fexofenadine (LAVERNE) 180 MG tablet Take 180 mg by mouth daily as needed . lisinopril (PRINIVIL,ZESTRIL) 2.5 MG tablet Take 1 (one) tablet (2.5 mg total) by mouth daily. metFORMIN (GLUCOPHAGE XR) 500 MG 24 hr tablet Take 1 (one) tablet (500 mg total) by mouth daily with breakfast. omeprazole (PRILOSEC) 40 MG capsule Take 1 (one) capsule (40 mg total) by mouth daily. cyanocobalamin (vitamin B-12) 500 MCG tablet Take 500 mcg by mouth daily . Review of Systems: Review of Systems Constitutional: Negative. HENT: Negative. Eyes: Negative. Respiratory: Negative. Cardiovascular: Negative. Gastrointestinal: Negative. Endocrine: Negative. Genitourinary: Negative. Musculoskeletal: Negative. Skin: Negative. Allergic/Immunologic: Negative. Neurological: Negative. Hematological: Negative. Psychiatric/Behavioral: Negative. Physical Examination: Vital Signs: BP (!) 160/84 Pulse (!) 101 Temp 98.6 F (37 C) Resp 16 Ht 5' 4.5" Wt 99.8 kg (220 lb) BMI 37.18 kg/m Physical Exam Constitutional: She is oriented to person, place, and time. She appears well- developed and well-nourished. HENT: Head: Normocephalic. Eyes: Pupils are equal, round, and reactive to light. Neck: Normal range of motion. Cardiovascular: Normal rate. Pulmonary/Chest: Effort normal. Right breast exhibits no inverted nipple, no mass, no nipple discharge, no skin change and no tenderness. Left breast exhibits no inverted nipple, no mass, no nipple discharge, no skin change and no tenderness. Breasts are symmetrical. Abdominal: Soft. She exhibits no distension. Musculoskeletal: Normal range of motion. She exhibits no edema. Lymphadenopathy: She has no cervical adenopathy. She has no axillary adenopathy. Neurological: She is alert and oriented to person, place, and time. Skin: Skin is warm and dry. Laboratory and Additional Data Reviewed: Laboratory 01/30/19 2:11 PM Imaging Accession No. [id number] Performed: Jan 24 2019 3:01PM Examination: MAMMOGRAM BILAT DIAGNOS, DIGITAL EXAM: MAMMOGRAM BILAT DIAGNOS, DIGITAL, US BREAST, UNILATERAL LIMITED RIGHT, US BREAST, UNILATERAL LIMITED LEFT CLINICAL STATEMENT: Abnormality seen on screening mammogram. COMPARISONS: Mammogram dated 01/19/2019 TECHNIQUE: CC and MLO spot compression views and ML view of the right and left breast. Targeted bilateral breast ultrasound. DENSITY: There are scattered fibroglandular densities. FINDINGS MAMMOGRAM: The previously described architectural distortion identified within the right breast central to the nipple posterior depth seen on the CC view only persists on the spot compression CC view. The architectural distortion is not appreciated on the lateral views of the right breast. The previously described round asymmetry within the medial aspect of the left breast on the CC view only is again identified on the additional mammographic images and is located at 9-10 o'clock. FINDINGS ULTRASOUND: Targeted right breast ultrasound was performed at 12:00. An irregular hypoechoic mass is identified at 12:00 5 cm from the nipple measuring 0.3 x 0.7 x 0.5 cm. No vascularity identified. This mass corresponds with mammography. The right axilla is normal. Targeted left breast ultrasound was performed at 10:00. A complicated appearing cyst is identified at 10:00 4 cm from the nipple measuring 0.9 x 0.3 x 0.9 cm. No vascularity identified. The left axilla is normal. IMPRESSION: 1. Suspicious mass within the right breast at 12:00 5 cm from the nipple. 2. Benign complicated appearing cyst within the left breast at 10:00 4 cm from the nipple. OVERALL BIRADS: 4C-HIGH SUSPICION FOR MALIGNANCY-BIOPSY IS RECOMMENDED. RECOMMENDATION: 1: Ultrasound-guided biopsy of the right breast is recommended. . Pathology pending biopsy Assessment and Plan: 58-year-old female female past medical history of diabetes GERD hyperlipidemia and seasonal allergies referred for abnormality seen on a recent screening mammography. Imaging reviewed. Suspicious mass present within the right breast identified on ultrasound imaging.Recommend proceeding with an ultrasound-guided right breast biopsy. Patient scheduled for biopsy 01/31/2019. Will return to my office next week for discussion of pathology and if any further surgical management is needed. in this encounter* Braden Gee MD - 02/15/2019 2:30 PM EDT BREAST CONSULT HISTORY & PHYSICAL EXAMINATION Patient Name: yLn Harry MR #: [id number] : 1960 Physicians: Dereje Trejo MD (Family); No ref. provider found (Referring) Subjective: 58-year-old female with below history seen for an abnormal right mammogram. Status postultrasound-guided right breast biopsy returns today for discussion of pathology. History of Present Illness: The patient is a 58 y.o. female past medical history of diabetes GERD hyperlipidemia and seasonal allergies referred for abnormality seen on a recent screening mammography. Patient states that she has been getting regular mammograms not quite on an annual basis but had one a year ago. Denies any previous abnormal mammograms and denies any previous biopsy. On this most recent mammogram she was noted to have a persistent asymmetry in the right breast and a cystic-like lesion in the left breast. On spot compression imaging on the right breast her architectural distortion did not disperse and a nodule was identified on her right breast ultrasound. She denies any palpable mass in the right breast. No nipple retraction or drainage. Denies family history of breast cancer and no history of ovarian or endometrial cancer. Risk Factors Age of menarche at 17 years Age of menopause at 56 years. 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 control pills: yes. Hormone replacement therapy: yes. Caffeine intake yes History of prior breast biopsy no History of prior breast cancer no Family History : Breast cancer no Ovarian Cancer no Endometrial cancer no Family History of breast disease no History: I have reviewed the PMHx, PSHx, SHx, FHx in EMR with the patient during this encounter face to faceand patient agrees with the documentation Past Medical History: Diagnosis Date Breast cancer (HCC) 01/31/2019 Right-Invasive mammary carcinoma Diabetes mellitus (HCC) GERD (gastroesophageal reflux disease) Hyperlipidemia Obesity Seasonal allergies Past Surgical History: Procedure Laterality Date APPENDECTOMY SECTION, CLASSIC 1996 COLONOSCOPY 05/19/2017 Normal....Dr. Blackmon D & C WITH LEEP 1994 EXPLORATORY LAPAROTOMY for infertility US BREAST BIOPSY RIGHT Right 01/31/2019 US BREAST BIOPSY RIGHT 01/31/2019, invasive mammary carcinoma US BREAST BIOPSY RIGHT Right 02/06/2019 US BREAST BIOPSY RIGHT Family History Problem Relation Age of Onset Aneurysm Father Heart attack Paternal Grandfather Cancer Paternal Grandmother Social History Socioeconomic History Marital status: Spouse name: Not on file Number of children: Not on file Years of education: Not on file Highest education level: Not on file Social Needs Financial resource strain: Not on file Food insecurity - worry: Not on file Food insecurity - inability: Not on file Transportation needs - medical: Not on file Transportation needs - non-medical: Not on file Occupational History Not on file Tobacco Use Smoking status: Never Smoker Smokeless tobacco: Never Used Substance and Sexual Activity Alcohol use: Not Currently Comment: SOCIALLY Drug use: No Sexual activity: Not on file Other Topics Concern Not on file Social History Narrative Not on file Allergy Information: I have reviewed the patient's allergies. Penicillins and Nsaids (non-steroidal anti-inflammatory drug) Home Medications: Outpatient Medications as of 02/15/2019 Medication Sig aspirin 81 MG EC tablet Take 1 (one) tablet (81 mg total) by mouth daily. atorvastatin (LIPITOR) 40 MG tablet Take 1 (one) tablet (40 mg total) by mouth daily. cholecalciferol, vitamin D3, 2,000 unit cap Take 6,000 Units by mouth . cyanocobalamin (vitamin B-12) 500 MCG tablet Take 500 mcg by mouth daily . fexofenadine (LAVERNE) 180 MG tablet Take 180 mg by mouth daily as needed . lisinopril (PRINIVIL,ZESTRIL) 2.5 MG tablet Take 1 (one) tablet (2.5 mg total) by mouth daily. metFORMIN (GLUCOPHAGE XR) 500 MG 24 hr tablet Take 1 (one) tablet (500 mg total) by mouth daily with breakfast. omeprazole (PRILOSEC) 40 MG capsule Take 1 (one) capsule (40 mg total) by mouth daily. Review of Systems: Review of Systems Constitutional: Negative. HENT: Negative. Eyes: Negative. Respiratory: Negative. Cardiovascular: Negative. Gastrointestinal: Negative. Endocrine: Negative. Genitourinary: Negative. Musculoskeletal: Negative. Skin: Negative. Allergic/Immunologic: Negative. Neurological: Negative. Hematological: Negative. Psychiatric/Behavioral: Negative. Physical Examination: Vital Signs: BP (!) 141/83 Pulse 98 Temp 98.4 F (36.9 C) Wt 97.5 kg (215 lb) BMI 36.33 kg/m Physical Exam Constitutional: She is oriented to person, place, and time. She appears well- developed and well-nourished. HENT: Head: Normocephalic. Eyes: Pupils are equal, round, and reactive to light. Neck: Normal range of motion. Cardiovascular: Normal rate. Pulmonary/Chest: Effort normal. Right breast exhibits no inverted nipple, no mass, no nipple discharge, no skin change and no tenderness. Left breast exhibits no inverted nipple, no mass, no nipple discharge, no skin change and no tenderness. Breasts are symmetrical. Abdominal: Soft. She exhibits no distension. Musculoskeletal: Normal range of motion. She exhibits no edema. Lymphadenopathy: She has no cervical adenopathy. She has no axillary adenopathy. Neurological: She is alert and oriented to person, place, and time. Skin: Skin is warm and dry. Laboratory and Additional Data Reviewed: Laboratory 02/15/19 2:30 PM Imaging Accession No. [id number] Performed: Jan 24 2019 3:01PM Examination: MAMMOGRAM BILAT DIAGNOS, DIGITAL EXAM: MAMMOGRAM BILAT DIAGNOS, DIGITAL, US BREAST, UNILATERAL LIMITED RIGHT, US BREAST, UNILATERAL LIMITED LEFT CLINICAL STATEMENT: Abnormality seen on screening mammogram. COMPARISONS: Mammogram dated 01/19/2019 TECHNIQUE: CC and MLO spot compression views and ML view of the right and left breast. Targeted bilateral breast ultrasound. DENSITY: There are scattered fibroglandular densities. FINDINGS MAMMOGRAM: The previously described architectural distortion identified within the right breast central to the nipple posterior depth seen on the CC view only persists on the spot compression CC view. The architectural distortion is not appreciated on the lateral views of the right breast. The previously described round asymmetry within the medial aspect of the left breast on the CC view only is again identified on the additional mammographic images and is located at 9-10 o'clock. FINDINGS ULTRASOUND: Targeted right breast ultrasound was performed at 12:00. An irregular hypoechoic mass is identified at 12:00 5 cm from the nipple measuring 0.3 x 0.7 x 0.5 cm. No vascularity identified. This mass corresponds with mammography. The right axilla is normal. Targeted left breast ultrasound was performed at 10:00. A complicated appearing cyst is identified at 10:00 4 cm from the nipple measuring 0.9 x 0.3 x 0.9 cm. No vascularity identified. The left axilla is normal. IMPRESSION: 1. Suspicious mass within the right breast at 12:00 5 cm from the nipple. 2. Benign complicated appearing cyst within the left breast at 10:00 4 cm from the nipple. OVERALL BIRADS: 4C-HIGH SUSPICION FOR MALIGNANCY-BIOPSY IS RECOMMENDED. RECOMMENDATION: 1: Ultrasound-guided biopsy of the right breast is recommended. . Pathology: Patient Name: LYN HARRY Source Breast biopsy, Right 12:00 Clinical History Right breast nodule, radial location-12:00, zone-5 cm FN, mass, birads-4 and size- 0.7 cm Diagnosis Preliminary Diagnosis Invasive mammary carcinoma. The final diagnosis is pending immunohistochemistry to determine ductal versus lobular differentiation. ER/AL/HER2 studies are also pending. .1 Patient Name: LYN HARRY Reason for Corrected Report [id number]: Results of ER/AL/HER2 02/05/2019 Source Breast biopsy, Right 12:00 Clinical History Right breast nodule, radial location-12:00, zone-5 cm FN, mass, birads-4 and size- 0.7 cm Diagnosis Invasive ductal carcinoma. COMMENT: The tumor cells are show diffusely membranous expression of E-cadherin, supportive of the diagnosis. ER/AL/HER2 studies performed by image analysis show the following results: ER: Positive (100 percent, intensity 3) AL: Positive (100 percent, intensity 3) HER2: Negative (0). Assessment and Plan: 58-year-old female female past medical history of diabetes GERD hyperlipidemia and seasonal allergies referred for abnormality seen on a recent screening mammography. Underwent a right breast ultrasound identified to have a 0.7 cm x 0.5 cm suspicious nodule. Now status post right breast ultrasound-guided biopsy with confirmed invasive ductal carcinoma ER AL positive HER-2 negative, clinical stageT1 cNX MX -Pathology finalized and as above-invasive ductal, ER AL positive HER-2 negative clinical stage T1 cNX MX -Discussed with the patient diagnosis of an underlying right breast cancer. Explained to her the treatment options including breast conservation versus mastectomy. Patient at this time is interested in pursuing right breast conservation. Explained to her that this will require lumpectomy sentinel lymph node biopsy followed by postop radiation and possible systemic therapy pending final pathology and Oncotype testing. Patient understanding and agreeable to proceed risks and possible complications were discussed including but not limited to bleeding, infection and need for further operation pending final pathology.We will plan for a right needle localized lumpectomy and sentinel lymph node biopsy in this encounter* Izabella Lopez RN - 03/14/2019 10:21 AM EDT I called the patient to see how she is doing after her surgery. Message left. documented in this encounter* Marion Garrett MD - 03/14/2019 10:04 AM EDT Breast Cancer Clinic Note Date of service: 03/14/2019 Referring Physician: Braden Gee MD PCP: Dereje Trejo MD Diagnosis: Right breast invasive ductal carcinoma, ER/AL +, HER2/marily negative AJCC stage: pT1c pN0 Mx, Stage IA Date of diagnosis: 01/31/19 Goal of treatment: curative Treatment delivered: Right breast lumpectomy with SLND Reason for visit: R breast invasive ductal carcinoma HPI: Ms. Harry is a 58 year old lady with a history of diabetes, GERD, HLD, PCOS, and seasonal allergies who is being seen by oncology for a new diagnosis of stage IA right breast invasive ductal carcinoma, ER/AL +, HER2/marily negative. The patient states that she was not having any issues prior to the diagnosis. This was found on a routine screening mammogram. She says she had a mammogram last year thatwas normal. She had a mammogram at the end of December which noted a right breast lesion that was concerning for malignancy. Given this they proceeded with a biopsy which confirmed right breast invasive ductal carcinoma, ER AL positive, HER-2/marily negative. She was then referred to see Dr. Gee. They discussed surgical options and the patient elected to proceed with a right breast lumpectomy andsentinel lymph node dissection. She tolerated surgery well and is healing well from her surgery. This was performed in early February. Her final pathology shows a tumor measuring up to 1.9 cm. The sentinel lymph node were negative for malignancy. It was overall grade 1. Her final pathology shows a pT1c pN0 Mx stage I a invasive ductal carcinoma of the right breast, ER/AL positive, HER-2/marily negative. She is healing well from the surgery and she is here today to discuss next steps in her therapy. She denies any family history of breast cancer. No family history of ovarian cancer or endometrial cancer. Reproductive risk factors: Age of menarche at 17 years Age of menopause at 56 years. 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 control pills: yes. Hormone replacement therapy: yes. Caffeine intake yes History of prior breast biopsy no History of prior breast cancer no Family History : Breast cancer no Ovarian Cancer no Endometrial cancer no Family History of breast disease no ROS: General- Denies weakness, fever/chills, weight gain/loss, fatigue, change in appetite, or cold and flu symptoms HEENT: Denies hearing changes or tinnitus, vision changes, sinus pain/tenderness, nasal congestion,epistaxis, gingival bleed, sore throat, or mouth sores Cardiac; Denies CP, palpitations, dizziness, claudication, or QUINN Pulmonary- Denies SOB, wheezing, PND, or cough GI- Denies nausea and vomiting, dysphagia, heartburn, abdominal pain, diarrhea or constipation - Denies urgency, frequency, hematuria or incontinence, complains of burning when urinating Endo- Denies excessive sweating, polyuria, or polydypsia MS - Denies joint stiffness swelling, or decreased ROM, Neuro- Denies loss of consciousness, numbness or tingling Skin- Denies jaundice, rashes, or open lesions Heme- Denies night sweats, signs and symptoms of infection, easily bleeding or bruising Psych- Denies signs and symptoms of depression or suicidal thoughts Past Medical History: Diagnosis Date Breast cancer (HCC) 01/31/2019 Right-Invasive mammary carcinoma Diabetes mellitus (HCC) GERD (gastroesophageal reflux disease) Hyperlipidemia Hypertension Obesity Seasonal allergies Past Surgical History: Procedure Laterality Date APPENDECTOMY BREAST BIOPSY Right ultrasound BREAST LUMPECTOMY W/ SENTINEL NODE, NEEDLE LOC, POSS AX DIS Right 02/27/2019 Procedure: RIGHT BREAST LUMPECTOMY WITH SENTINEL NODE BIOPSY WITH NEEDLE LOCALIZATION AND POSSIBLE AXILLARY DISSECTION; Surgeon: Braden Gee MD; Location: [facility]; Service: General Surgery SECTION, CLASSIC 1996 COLONOSCOPY 05/19/2017 Normal....Dr. Blackmon D & C WITH LEEP 1994 EXPLORATORY LAPAROTOMY for infertility MM NEEDLE LOCALIZATION RIGHT Right 02/27/2019 MM NEEDLE LOCALIZATION RIGHT 02/27/2019 MAMMOGRAPHY US BREAST BIOPSY RIGHT Right 01/31/2019 US BREAST BIOPSY RIGHT 01/31/2019, invasive mammary carcinoma US BREAST BIOPSY RIGHT Right 02/06/2019 US BREAST BIOPSY RIGHT Family History Problem Relation Age of Onset Aneurysm Father Heart attack Paternal Grandfather Cancer Paternal Grandmother Social History Socioeconomic History Marital status: Spouse name: None Number of children: None Years of education: None Highest education level: None Social Needs Financial resource strain: None Food insecurity - worry: None Food insecurity - inability: None Transportation needs - medical: None Transportation needs - non-medical: None Occupational History None Tobacco Use Smoking status: Never Smoker Smokeless tobacco: Never Used Substance and Sexual Activity Alcohol use: Not Currently Comment: SOCIALLY Drug use: No Sexual activity: None Other Topics Concern None Social History Narrative None Allergies Allergen Reactions Penicillins Swelling Strong family history of penicillin allergy. Nsaids (Non-Steroidal Anti-Inflammatory Drug) Has CKD-2, Has no reaction Current Outpatient Medications: atorvastatin (LIPITOR) 40 MG tablet, Take 1 (one) tablet (40 mg total) by mouth daily., Disp: 30 tablet, Rfl: 5 fexofenadine (LAVERNE) 180 MG tablet, Take 180 mg by mouth daily as needed ., Disp: , Rfl: lisinopril (PRINIVIL,ZESTRIL) 2.5 MG tablet, Take 1 (one) tablet (2.5 mg total) by mouth daily., Disp: 30 tablet, Rfl: 5 metFORMIN (GLUCOPHAGE XR) 500 MG 24 hr tablet, Take 1 (one) tablet (500 mg total) by mouth daily with breakfast., Disp: 30 tablet, Rfl: 5 omeprazole (PRILOSEC) 40 MG capsule, Take 1 (one) capsule (40 mg total) by mouth daily., Disp: 30 capsule, Rfl: 5 cholecalciferol, vitamin D3, 2,000 unit cap, Take 6,000 Units by mouth ., Disp: , Rfl: cyanocobalamin (vitamin B-12) 500 MCG tablet, Take 500 mcg by mouth daily ., Disp: , Rfl: oxyCODONE-acetaminophen (PERCOCET) 5-325 mg per tablet, Take 1 (one) tablet by mouth every 6 (six) hours as needed for pain (Days supply per fill: 3) ., Disp: 12 tablet, Rfl: 0 Physical exam: ECOG PS: 0 PACU Vitals 03/14/19 1016 BP: (!) 154/95 Pulse: 94 Temp: 98.9 F (37.2 C) SpO2: 95% General: well-appearing, no acute distress HEENT: NCAT, sclera anicteric, moist mm, o/p clear , no oral mucosal lesions Neck: supple, no supraclavicular adenopathy Lymph: no cervical, supraclavicular, or axillary LAD Chest: CTAB, no w/r/r, no respiratory distress CV: RRR, no S3 S4 gallops or murmurs Abd: soft, NT/ND, no HSM or masses, + BS Extrem: wwp, no c/c/e Skin: no rashes or lesions Neuro: alert, oriented, CN intact, speech fluent, strength full and symmetric Breast: Right breast with 3 cm horizontal incision that is located about 2 cm above the nipple, well-healing, no erythema or drainage. No masses palpated in right breast. No axillary adenopathy appreciated. Left breast with no masses palpated or skin changes or nipple discharge. No axillary adenopathy. Labs: Lab Results Component Value Date WBC 4.48 (L) 02/21/2019 HGB 13.6 02/21/2019 HCT 38.9 02/21/2019 MCV 88.6 02/21/2019 PLT 159 02/21/2019 RBC 4.39 02/21/2019 Lab Results Component Value Date GLUCOSE 163 (H) 02/21/2019 CALCIUM 9.5 02/21/2019 NA 140 02/21/2019 K 4.2 02/21/2019 CL 104 02/21/2019 BUN 13 02/21/2019 CREATININE 0.95 02/21/2019 No results found for: ALT, AST, GGT, ALKPHOS, BILITOT Imaging: Mammogram 01/24/19: 1. Suspicious mass within the right breast at 12:00 5 cm from the nipple. 2. Benign complicated appearing cyst within the left breast at 10:00 4 cm from the nipple. OVERALL BIRADS: 4C-HIGH SUSPICION FOR MALIGNANCY-BIOPSY IS RECOMMENDED. RECOMMENDATION: 1: Ultrasound-guided biopsy of the right breast is recommended. Pathology: Right breast Lumpectomy 02/27/19: Histologic type: Invasive ductal carcinoma, not otherwise specified Histologic (Umesh) grade: Glandular/Tubular differentiation: Score 3 Nuclear pleomorphism: Score 1 Mitotic rate: Score 1 Overall grade: Grade 1 (scores of 3, 4, or 5) Margins: Invasive carcinoma margins: Uninvolved by invasive carcinoma Distance from closest margin: Inferior margin, 2 mm DCIS margins: Uninvolved by DCIS Distance from closest margin: Inferior margin, 6 mm Pathologic Stage (AJCC 8th Ed.): pT1c pN0(sn) Procedure: Partial mastectomy Specimen laterality: Right Tumor site: 12 o'clock Tumor size: 1.9 cm Tumor focality: Single focus of invasive carcinoma Ductal carcinoma in-situ (DCIS): Present Tumor extension: Skin: Skin is not present Nipple: Nipple is not present Skeletal muscle: No skeletal muscle is present Regional lymph nodes: Uninvolved by tumor cells Number of lymph nodes examined: 4 Number of sentinel lymph nodes examined: 4 Treatment effect: No known presurgical therapy Lymphovascular invasion: Not identified Dermal lymphovascular invasion: No skin present Additional pathologic findings: None Ancillary studies: (performed on prior biopsy [id number]) ER: Positive ( 100%, 3+ intensity, resulted by image analysis) AL: Positive ( 100%, 3+ intensity, resulted by image analysis) HER2: Negative (0, resulted by image analysis) A. Lymph node(s), Axillary, [place], Right, lymphadenectomy: One lymph node, negative for malignancy (0/1). B. Lymph node(s), Axillary, [place], Right, lymphadenectomy: One lymph node, negative for malignancy (0/1). C. Breast, Right, lumpectomy: 1. Invasive ductal carcinoma. See synoptic report. 2. The margins of excision are uninvolved by tumor. D. Lymph node(s), Axillary, [place], Right, lymphadenectomy: Two lymph nodes, negative for malignancy (0/2). Assessment / plan: Ms. Harry is a 58 year old lady with a history of diabetes, GERD, HLD, PCOS, and seasonal allergies who is being seen by oncology for a new diagnosis of stage IA right breast invasive ductal carcinoma, ER/AL +, HER2/marily negative. Right breast invasive ductal carcinoma, ER/AL positive, HER-2/marily negative, pT1c pN0 Mx, Stage IA: As above, the patient is being seen for new diagnosis of right breast invasive ductal carcinoma, ERPR positive, HER-2/marily negative. This was found on a routine screening mammogram and she did not have any symptoms prior to this. She has been seen by Dr. Gee and had a right breast lumpectomy on 02/27/2019. The final pathology is as above overall stage I a, hormone positive, HER-2/marily negative. -I discussed the pathology results with the patient today. I recommend that we proceed with Oncotype DX testing to determine if she would benefit from adjuvant chemotherapy in addition to adjuvant endocrine therapy. We discussed the rationale for this today in clinic and she is agreeable with proceeding. We will have that sent out today. -If her Oncotype score is 26 or lower, then she would not benefit from adjuvant therapy in additionto endocrine therapy and I would recommend proceeding with adjuvant radiation and then we would follow that with adjuvant endocrine therapy. -If her score is high, then we would have to discuss adjuvant chemotherapy options prior to starting adjuvant radiation. -I will plan to see her back in 2 weeks to discuss the results. She was agreeable with this plan. Diabetes: Per patient history. She will continue to follow with her PCP for this. Hypertension: Per patient history. She will continue follow-up with her PCP for this. RTC 2 weeks to discuss oncotype results Education Provided Education/Instructions given to: (x) Patient (_) Spouse (_) Parent (_) Other Barriers to Learning: (x) None (_) Yes (identify):_ Content: (x) Refer to note above (_)Other (identify):_ Evaluation/Outcome: (x) Verbalized understanding (_) Demonstrated understanding NCCN Guidelines Consulted: (x ) Yes ( ) No Recommendations Concordant with Guidelines: ( x ) Yes ( ) No Reason for Non-Concordance: n/a documented in this encounter* Braden Gee MD - 03/16/2019 10:01 AM EDT [facility] PATIENT: Lyn Harry DATE / TIME: 03/16/19 10:01 AM POS: Office AGE: 58 y.o. : 1960 RACE: [1] SEX: female PCP: Dereje Trejo MD REFERRAL: No ref. provider found TOS: SUBJECTIVE: 58-year-old female female past medical history of diabetes GERD hyperlipidemia and seasonal allergies referred for abnormality seen on a recent screening mammography. Underwent a right breast ultrasound identified to have a 0.7 cm x 0.5 cm suspicious nodule. Now status post right breastultrasound-guided biopsy with confirmed invasive ductal carcinoma ER AL positive HER-2 negative, clinical stage T1 cNX MX. Now status post right needle localized lumpectomy and sentinel lymph node biopsy with a pathologic stage pT1c pN0(sn). Overall doing well since surgery. Seen last week and had seroma palpable within the right axilla. Underwent a needle aspiration and returns today for wound check and follow-up OBJECTIVE: BP (!) 158/103 Pulse 71 Temp 98.2 F (36.8 C) (Oral) Ht 5' 5" Wt 96.3 kg (212 lb 4.8 oz) SpO2 96% BMI 35.33 kg/m PE Right breast incision is intact breast incision is well-appearing glue remains present. Soft no palpable hematoma present no erythema induration or drainage Right axillary incision is intact minimal fullness no tenderness to palpation, no erythema. Lab Results Component Value Date WBC 4.48 (L) 02/21/2019 RBC 4.39 02/21/2019 HGB 13.6 02/21/2019 HCT 38.9 02/21/2019 PLT 159 02/21/2019 No results found for: AMYLASE No results found for: LIPASE IMAGING: PATHOLOGY: Surgical Pathology Report Case: [id number] Authorizing Provider: Braden Gee MD Collected: 02/27/2019 12:38 PM Ordering Location: [facility] Periop Received: 02/27/2019 12:55 PM Pathologist: Kirby Olvera IV, MD Specimens: A) - Lymph Node, [place], Axillary, Right, [place] Lymph Node A B) - Lymph Node, [place], Axillary, Right, [place] Lymph Node B C) - Breast, Right, Right Breast Lumpectomy D) - Lymph Node, [place], Axillary, Right, Additional [place] Lymph Node Final Diagnosis Histologic type: Invasive ductal carcinoma, not otherwise specified Histologic (Umesh) grade: Glandular/Tubular differentiation: Score 3 Nuclear pleomorphism: Score 1 Mitotic rate: Score 1 Overall grade: Grade 1 (scores of 3, 4, or 5) Margins: Invasive carcinoma margins: Uninvolved by invasive carcinoma Distance from closest margin: Inferior margin, 2 mm DCIS margins: Uninvolved by DCIS Distance from closest margin: Inferior margin, 6 mm Pathologic Stage (AJCC 8th Ed.): pT1c pN0(sn) Procedure: Partial mastectomy Specimen laterality: Right Tumor site: 12 o'clock Tumor size: 1.9 cm Tumor focality: Single focus of invasive carcinoma Ductal carcinoma in-situ (DCIS): Present Tumor extension: Skin: Skin is not present Nipple: Nipple is not present Skeletal muscle: No skeletal muscle is present Regional lymph nodes: Uninvolved by tumor cells Number of lymph nodes examined: 4 Number of sentinel lymph nodes examined: 4 Treatment effect: No known presurgical therapy Lymphovascular invasion: Not identified Dermal lymphovascular invasion: No skin present Additional pathologic findings: None Ancillary studies: (performed on prior biopsy [id number]) ER: Positive ( 100%, 3+ intensity, resulted by image analysis) AL: Positive ( 100%, 3+ intensity, resulted by image analysis) HER2: Negative (0, resulted by image analysis) A. Lymph node(s), Axillary, [place], Right, lymphadenectomy: One lymph node, negative for malignancy (0/1). B. Lymph node(s), Axillary, [place], Right, lymphadenectomy: One lymph node, negative for malignancy (0/1). C. Breast, Right, lumpectomy: 1. Invasive ductal carcinoma. See synoptic report. 2. The margins of excision are uninvolved by tumor. D. Lymph node(s), Axillary, [place], Right, lymphadenectomy: Two lymph nodes, negative for malignancy (0/2). ASSESSMENT: 58-year-old female female past medical history of diabetes GERD hyperlipidemia and seasonal allergies referred for abnormality seen on a recent screening mammography. Underwent a right breast ultrasound identified to have a 0.7 cm x 0.5 cm suspicious nodule. Now status post right breastultrasound-guided biopsy with confirmed invasive ductal carcinoma ER AL positive HER-2 negative, clinical stage T1 cNX MX. Now status post right needle localized lumpectomy and sentinel lymph node biopsy with a pathologic stage pT1c pN0(sn) PLAN: Patient Active Problem List Diagnosis SNOMED CT(R) Type 2 diabetes mellitus (HCC) TYPE 2 DIABETES MELLITUS Mixed hyperlipidemia MIXED HYPERLIPIDEMIA GERD without esophagitis GASTROESOPHAGEAL REFLUX DISEASE WITHOUT ESOPHAGITIS Seasonal allergies SEASONAL ALLERGY Vitamin B12 deficiency COBALAMIN DEFICIENCY Vitamin D deficiency VITAMIN D DEFICIENCY PCOS (polycystic ovarian syndrome) POLYCYSTIC OVARIES Elevated blood-pressure reading, without diagnosis of hypertension ELEVATED BLOOD-PRESSURE READING WITHOUT DIAGNOSIS OF HYPERTENSION NAFL (nonalcoholic fatty liver) NON-ALCOHOLIC FATTY LIVER Malignant neoplasm of right female breast (HCC) MALIGNANT NEOPLASM OF FEMALE BREAST Invasive ductal carcinoma of breast, female, right (HCC) INFILTRATING DUCT CARCINOMA OF RIGHT FEMALE BREAST No evidence of reaccumulation of the seroma in the right axilla. Patient seen and evaluated by oncology awaiting Oncotype testing to determine need for adjuvant chemotherapy. If low we will proceed with whole breast radiation. Patient to follow-up at the end of her radiation treatments. documented in this encounter* Izabella Lopez RN - 03/27/2019 8:59 AM EDT Post-surgical call, left message with contact information. documented in this encounter* Izabella Lopez RN - 03/27/2019 1:42 PM EDT The patient called back and talked about her Oncotype and AI medications. She shared her report andher understanding of her pathology. Support provided, contact information confirmed. documented in this encounter* Dereje Trejo MD - 04/04/2019 2:59 PM EDT Lyn Harry 1960 [id number] HPI: Patient was here today to follow-up on her chronic medical problems. Diabetes, elevated blood pressure, GERD: Patient has been compliant with all the prescribed medications without any significant adverse effects and her latest globin A1c is better than the previous one at 6.2. Has been compliant with diabetic diet but does not do any regular aerobic exercise and has not lost any weight since after her last visit here. Has been monitoring her blood pressure at home and has been mostly in the range of 130 140/70 85. Denies any significant symptoms of GERD-like heartburn, dyspepsia, epigastric discomfort, nausea/vomiting. Patient also had an abnormal mammogram after her last visit here and hence had a biopsy of the right breast which showed invasive ductal carcinoma. Hence, patient underwent a right breast lumpectomy by general surgery and referred to medical oncology after that. Patient has seen the oncologist and they are still in the process of doing further lab testing to figure out further treatment options. Patient Active Problem List Diagnosis SNOMED CT(R) Type 2 diabetes mellitus (HCC) TYPE 2 DIABETES MELLITUS Mixed hyperlipidemia MIXED HYPERLIPIDEMIA GERD without esophagitis GASTROESOPHAGEAL REFLUX DISEASE WITHOUT ESOPHAGITIS Seasonal allergies SEASONAL ALLERGY Vitamin D deficiency VITAMIN D DEFICIENCY PCOS (polycystic ovarian syndrome) POLYCYSTIC OVARIES NAFL (nonalcoholic fatty liver) NON-ALCOHOLIC FATTY LIVER Invasive ductal carcinoma of breast, female, right (HCC) INFILTRATING DUCT CARCINOMA OF RIGHT FEMALE BREAST Essential hypertension ESSENTIAL HYPERTENSION Past Medical History: Diagnosis Date Breast cancer (HCC) 01/31/2019 Right-Invasive mammary carcinoma Diabetes mellitus (HCC) Elevated blood-pressure reading, without diagnosis of hypertension 01/02/2019 GERD (gastroesophageal reflux disease) Hyperlipidemia Hypertension Seasonal allergies Past Surgical History: Procedure Laterality Date APPENDECTOMY BREAST BIOPSY Right ultrasound BREAST LUMPECTOMY W/ SENTINEL NODE, NEEDLE LOC, POSS AX DIS Right 02/27/2019 Procedure: RIGHT BREAST LUMPECTOMY WITH SENTINEL NODE BIOPSY WITH NEEDLE LOCALIZATION AND POSSIBLE AXILLARY DISSECTION; Surgeon: Braden Gee MD; Location: Main OR; Service: General Surgery SECTION, CLASSIC 1996 COLONOSCOPY 05/19/2017 Normal....Dr. Blackmon D & C WITH LEEP 1994 EXPLORATORY LAPAROTOMY for infertility MM NEEDLE LOCALIZATION RIGHT Right 02/27/2019 MM NEEDLE LOCALIZATION RIGHT 02/27/2019 [facility] MAMMOGRAPHY US BREAST BIOPSY RIGHT Right 01/31/2019 US BREAST BIOPSY RIGHT 01/31/2019, invasive mammary carcinoma US BREAST BIOPSY RIGHT Right 02/06/2019 US BREAST BIOPSY RIGHT Social History Socioeconomic History Marital status: Spouse name: Not on file Number of children: Not on file Years of education: Not on file Highest education level: Not on file Social Needs Financial resource strain: Not on file Food insecurity - worry: Not on file Food insecurity - inability: Not on file Transportation needs - medical: Not on file Transportation needs - non-medical: Not on file Occupational History Not on file Tobacco Use Smoking status: Never Smoker Smokeless tobacco: Never Used Substance and Sexual Activity Alcohol use: Not Currently Comment: SOCIALLY Drug use: No Sexual activity: Not on file Other Topics Concern Not on file Social History Narrative Not on file Family History Problem Relation Age of Onset Aneurysm Father Heart attack Paternal Grandfather Cancer Paternal Grandmother Review of Systems Constitutional: Negative for appetite change, chills, fatigue, fever and unexpected weight change. Respiratory: Negative for cough, shortness of breath and wheezing. Cardiovascular: Negative for chest pain, palpitations and leg swelling. Gastrointestinal: Negative for abdominal pain, blood in stool, constipation, diarrhea, nausea and vomiting. Endocrine: Negative for cold intolerance, heat intolerance, polydipsia, polyphagia and polyuria. Neurological: Negative for dizziness, light-headedness, numbness and headaches. Psychiatric/Behavioral: Negative for dysphoric mood and sleep disturbance. The patient is not nervous/anxious. Physical Exam: Vitals: 04/04/19 1444 BP: (P) 133/87 Pulse: (P) 98 Resp: (P) 18 Temp: (P) 99.2 F (37.3 C) TempSrc: (P) Oral SpO2: (P) 94% Weight: (P) 94.6 kg (208 lb 9.6 oz) Height: (P) 5' 5" Physical Exam Constitutional: She appears well-nourished. No distress. Neck: Carotid bruit is not present. Cardiovascular: Normal rate, regular rhythm, normal heart sounds and intact distal pulses. No murmur heard. Pulmonary/Chest: Effort normal and breath sounds normal. No respiratory distress. She has no wheezes. She has no rales. Abdominal: Soft. She exhibits no distension. There is no tenderness. Musculoskeletal: She exhibits no edema. Assessment & Plan: SNOMED CT(R) 1. Type 2 diabetes mellitus without complication, without long-term current use of insulin (HCC) TYPE 2 DIABETES MELLITUS WITHOUT COMPLICATION Comprehensive Metabolic Panel Hemoglobin A1c Lipid Panel 2. Essential hypertension ESSENTIAL HYPERTENSION 3. GERD without esophagitis GASTROESOPHAGEAL REFLUX DISEASE WITHOUT ESOPHAGITIS 4. Invasive ductal carcinoma of breast, female, right (HCC) INFILTRATING DUCT CARCINOMA OF RIGHT FEMALE BREAST Diabetes: Seems to be under control and improving. Advised to continue same dose of metformin. Encouraged for compliance with diabetic diet, regular exercise and weight loss. Latest labs were reviewed and discussed in detail with patient. Will repeat hemoglobin A1c in 3 to 4 months. Patient was also advised to have an eye exam by ophthalmology. GERD: Stable with symptoms under control. Continue same medication. She was also counseled for proper diet and lifestyle modifications to prevent GERD. Right breast cancer, status post lumpectomy: Patient will be following up with oncology for furthertreatment. Elevated blood pressure: Persistently elevated blood pressure even with a small dose of lisinopril,most likely essential hypertension. Patient will benefit from better blood pressure control and hence the dose of lisinopril was increased to 5 mg daily. New prescription was given today. Target blood pressure goals were also discussed and patient was advised to closely monitor her blood pressure at home and call us back if the blood pressure is still out of the target range. Return in about 3 months (around 07/05/2019), or if symptoms worsen or fail to improve. Patient education & instructions given for: Patient was advised to avoid smoking, alcohol. Patient was also counseled for fall precautions. Details of medical condition explained and patient/caregiver was warned about the adverse consequences of uncontrolled medical conditions. Also cautioned about possible common adverse-effects and drug interactions of prescribed/OTC medications and also OTC/herbal supplements. Patient was recommended to review the medication information pamphlets/package inserts for complete list of adverse effects/contraindications, drug interactions etc., before starting any new medication. Patient was advisedto watch for any adverse effects, and instructed to immediately discontinue the medication and callus or go to ER if experiencing any adverse affects from the medications. Advised not to drive/drinkalcohol/use heavy machinery when taking narcotic/other sedating medications. Counseling for diet and exercise provided. All the addressed problems were discussed with the patient and advice given to call with any concerns or return to the office or go to a nearby ER if the symptoms do not improve or worsen or new symptoms develop. If any referrals were placed at today's visit, the patient was instructed to call the office if they haven't heard anything about the referral within 2 weeks of today's visit. Health maintenance/preventive screening reviewed / ordered: Offered age- appropriate preventive services and screening. Please note: Portions of this chart may have been created with [employer] voice recognition software. Occasional wrong-word or "sound-like" substitutions may have occurred due to inherent limitations of the voice recognition software. Please read the chart carefully and recognize, using context, where the substitutions have occurred. Dereje Trejo MD documented in this encounter* Marion Garrett MD - 04/17/2019 1:18 PM EDT [facility] Note Date of service: 04/17/2019 Referring Physician: Braden Gee MD PCP: Dereje Trejo MD Diagnosis/chief Complaint: Right breast invasive ductal carcinoma, ER/AL +, HER2/marily negative AJCC stage: pT1c pN0 Mx, Stage IA Date of diagnosis: 01/31/19 Goal of treatment: curative Treatment delivered: Right breast lumpectomy with SLND Reason for visit: R breast invasive ductal carcinoma Interval History: Ms. Harry is here to follow-up on her Oncotype DX testing. She denies any new issues. She has healedwell from her breast surgery denies any new issues. She occasionally gets some pulling sensation inher arm that she had the LN dissection but this is not anything severe. No new medications. She denies any other new pain, fevers, chills, nausea, vomiting. HPI: Ms. Harry is a 58 year old lady with a history of diabetes, GERD, HLD, PCOS, and seasonal allergies who is being seen by oncology for a new diagnosis of stage IA right breast invasive ductal carcinoma, ER/AL +, HER2/marily negative. The patient states that she was not having any issues prior to the diagnosis. This was found on a routine screening mammogram. She says she had a mammogram last year thatwas normal. She had a mammogram at the end of December which noted a right breast lesion that was concerning for malignancy. Given this they proceeded with a biopsy which confirmed right breast invasive ductal carcinoma, ER AL positive, HER-2/marily negative. She was then referred to see Dr. Gee. They discussed surgical options and the patient elected to proceed with a right breast lumpectomy andsentinel lymph node dissection. She tolerated surgery well and is healing well from her surgery. This was performed in early February. Her final pathology shows a tumor measuring up to 1.9 cm. The sentinel lymph node were negative for malignancy. It was overall grade 1. Her final pathology shows a pT1c pN0 Mx stage I a invasive ductal carcinoma of the right breast, ER/AL positive, HER-2/marily negative. She is healing well from the surgery and she is here today to discuss next steps in her therapy. She denies any family history of breast cancer. No family history of ovarian cancer or endometrial cancer. Reproductive risk factors: Age of menarche at 17 years Age of menopause at 56 years. 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 control pills: yes. Hormone replacement therapy: yes. Caffeine intake yes History of prior breast biopsy no History of prior breast cancer no Family History : Breast cancer no Ovarian Cancer no Endometrial cancer no Family History of breast disease no ROS: General- Denies weakness, fever/chills, weight gain/loss, fatigue, change in appetite, or cold and flu symptoms HEENT: Denies hearing changes or tinnitus, vision changes, sinus pain/tenderness, nasal congestion,epistaxis, gingival bleed, sore throat, or mouth sores Cardiac; Denies CP, palpitations, dizziness, claudication, or QUINN Pulmonary- Denies SOB, wheezing, PND, or cough GI- Denies nausea and vomiting, dysphagia, heartburn, abdominal pain, diarrhea or constipation - Denies urgency, frequency, hematuria or incontinence, complains of burning when urinating Endo- Denies excessive sweating, polyuria, or polydypsia MS - Denies joint stiffness swelling, or decreased ROM, Neuro- Denies loss of consciousness, numbness or tingling Skin- Denies jaundice, rashes, or open lesions Heme- Denies night sweats, signs and symptoms of infection, easily bleeding or bruising Psych- Denies signs and symptoms of depression or suicidal thoughts Past Medical History: Diagnosis Date Breast cancer (HCC) 01/31/2019 Right-Invasive mammary carcinoma Diabetes mellitus (HCC) Elevated blood-pressure reading, without diagnosis of hypertension 01/02/2019 GERD (gastroesophageal reflux disease) Hyperlipidemia Hypertension Seasonal allergies Past Surgical History: Procedure Laterality Date APPENDECTOMY BREAST BIOPSY Right ultrasound BREAST LUMPECTOMY W/ SENTINEL NODE, NEEDLE LOC, POSS AX DIS Right 02/27/2019 Procedure: RIGHT BREAST LUMPECTOMY WITH SENTINEL NODE BIOPSY WITH NEEDLE LOCALIZATION AND POSSIBLE AXILLARY DISSECTION; Surgeon: Braden Gee MD; Location: [facility] OR; Service: General Surgery SECTION, CLASSIC 1996 COLONOSCOPY 05/19/2017 Normal....Dr. Blackmon D & C WITH [place] 1994 EXPLORATORY LAPAROTOMY for infertility MM NEEDLE LOCALIZATION RIGHT Right 02/27/2019 MM NEEDLE LOCALIZATION RIGHT 02/27/2019 MAMMOGRAPHY US BREAST BIOPSY RIGHT Right 01/31/2019 US BREAST BIOPSY RIGHT 01/31/2019, invasive mammary carcinoma US BREAST BIOPSY RIGHT Right 02/06/2019 US BREAST BIOPSY RIGHT Family History Problem Relation Age of Onset Aneurysm Father Heart attack Paternal Grandfather Cancer Paternal Grandmother Social History Socioeconomic History Marital status: Spouse name: Not on file Number of children: Not on file Years of education: Not on file Highest education level: Not on file Occupational History Not on file Social Needs Financial resource strain: Not on file Food insecurity: Worry: Not on file Inability: Not on file Transportation needs: Medical: Not on file Non-medical: Not on file Tobacco Use Smoking status: Never Smoker Smokeless tobacco: Never Used Substance and Sexual Activity Alcohol use: Not Currently Comment: SOCIALLY Drug use: No Sexual activity: Not on file Lifestyle Physical activity: Days per week: Not on file Minutes per session: Not on file Stress: Not on file Relationships Social connections: Talks on phone: Not on file Gets together: Not on file Attends adventism service: Not on file Active member of club or organization: Not on file Attends meetings of clubs or organizations: Not on file Relationship status: Not on file Other Topics Concern Not on file Social History Narrative Not on file Allergies Allergen Reactions Penicillins Swelling Strong family history of penicillin allergy. Nsaids (Non-Steroidal Anti-Inflammatory Drug) Has CKD-2, Has no reaction Current Outpatient Medications: atorvastatin (LIPITOR) 40 MG tablet, Take 1 (one) tablet (40 mg total) by mouth daily ., Disp: 30 tablet, Rfl: 5 fexofenadine (LAVERNE) 180 MG tablet, Take 180 mg by mouth daily as needed ., Disp: , Rfl: lisinopril (PRINIVIL,ZESTRIL) 5 MG tablet, Take 1 (one) tablet (5 mg total) by mouth daily ., Disp:30 tablet, Rfl: 11 metFORMIN (GLUCOPHAGE XR) 500 MG 24 hr tablet, Take 1 (one) tablet (500 mg total) by mouth daily with breakfast ., Disp: 30 tablet, Rfl: 5 omeprazole (PRILOSEC) 40 MG capsule, Take 1 (one) capsule (40 mg total) by mouth daily ., Disp: 30 capsule, Rfl: 11 Physical exam: ECOG PS: 0 PACU Vitals 04/17/19 1320 BP: 134/85 Pulse: 88 Temp: 98.6 F (37 C) SpO2: 96% General: well-appearing, no acute distress HEENT: NCAT, sclera anicteric, moist mm, o/p clear , no oral mucosal lesions Neck: supple, no supraclavicular adenopathy Lymph: no cervical, supraclavicular, or axillary LAD Chest: CTAB, no w/r/r, no respiratory distress CV: RRR, no S3 S4 gallops or murmurs Abd: soft, NT/ND, no HSM or masses, + BS Extrem: wwp, no c/c/e Skin: no rashes or lesions Neuro: alert, oriented, CN intact, speech fluent, strength full and symmetric Breast: Right breast with 3 cm horizontal incision that is located about 2 cm above the nipple, well-healed, no erythema or drainage. No masses palpated in right breast. No axillary adenopathy appreciated. Left breast with no masses palpated or skin changes or nipple discharge. No axillary adenopathy. Psych: Mood normal, Affect normal Labs: Lab Results Component Value Date WBC 4.48 (L) 02/21/2019 HGB 13.6 02/21/2019 HCT 38.9 02/21/2019 MCV 88.6 02/21/2019 PLT 159 02/21/2019 RBC 4.39 02/21/2019 Lab Results Component Value Date GLUCOSE 173 (H) 03/28/2019 CALCIUM 9.2 03/28/2019 NA 138 03/28/2019 K 3.9 03/28/2019 CL 104 03/28/2019 BUN 12 03/28/2019 CREATININE 0.94 03/28/2019 Lab Results Component Value Date ALT 34 03/28/2019 AST 20 03/28/2019 ALKPHOS 72 03/28/2019 BILITOT 0.7 03/28/2019 Imaging: Mammogram 01/24/19: 1. Suspicious mass within the right breast at 12:00 5 cm from the nipple. 2. Benign complicated appearing cyst within the left breast at 10:00 4 cm from the nipple. OVERALL BIRADS: 4C-HIGH SUSPICION FOR MALIGNANCY-BIOPSY IS RECOMMENDED. RECOMMENDATION: 1: Ultrasound-guided biopsy of the right breast is recommended. Pathology: Right breast Lumpectomy 02/27/19: Histologic type: Invasive ductal carcinoma, not otherwise specified Histologic (Umesh) grade: Glandular/Tubular differentiation: Score 3 Nuclear pleomorphism: Score 1 Mitotic rate: Score 1 Overall grade: Grade 1 (scores of 3, 4, or 5) Margins: Invasive carcinoma margins: Uninvolved by invasive carcinoma Distance from closest margin: Inferior margin, 2 mm DCIS margins: Uninvolved by DCIS Distance from closest margin: Inferior margin, 6 mm Pathologic Stage (AJCC 8th Ed.): pT1c pN0(sn) Procedure: Partial mastectomy Specimen laterality: Right Tumor site: 12 o'clock Tumor size: 1.9 cm Tumor focality: Single focus of invasive carcinoma Ductal carcinoma in-situ (DCIS): Present Tumor extension: Skin: Skin is not present Nipple: Nipple is not present Skeletal muscle: No skeletal muscle is present Regional lymph nodes: Uninvolved by tumor cells Number of lymph nodes examined: 4 Number of sentinel lymph nodes examined: 4 Treatment effect: No known presurgical therapy Lymphovascular invasion: Not identified Dermal lymphovascular invasion: No skin present Additional pathologic findings: None Ancillary studies: (performed on prior biopsy [id number]) ER: Positive ( 100%, 3+ intensity, resulted by image analysis) AL: Positive ( 100%, 3+ intensity, resulted by image analysis) HER2: Negative (0, resulted by image analysis) A. Lymph node(s), Axillary, [place], Right, lymphadenectomy: One lymph node, negative for malignancy (0/1). B. Lymph node(s), Axillary, [place], Right, lymphadenectomy: One lymph node, negative for malignancy (0/1). C. Breast, Right, lumpectomy: 1. Invasive ductal carcinoma. See synoptic report. 2. The margins of excision are uninvolved by tumor. D. Lymph node(s), Axillary, [place], Right, lymphadenectomy: Two lymph nodes, negative for malignancy (0/2). Assessment / plan: Ms. Harry is a 58 year old lady with a history of diabetes, GERD, HLD, PCOS, and seasonal allergies who is being seen by oncology for a new diagnosis of stage IA right breast invasive ductal carcinoma, ER/AL +, HER2/marily negative. Right breast invasive ductal carcinoma, ER/AL positive, HER-2/marily negative, pT1c pN0 Mx, Stage IA: As above, the patient is being seen for new diagnosis of right breast invasive ductal carcinoma, ERPR positive, HER-2/marily negative. This was found on a routine screening mammogram and she did not have any symptoms prior to this. She has been seen by Dr. Gee and had a right breast lumpectomy on 02/27/2019. The final pathology is as above overall stage I a, hormone positive, HER-2/marily negative. -I discussed the pathology results with the patient today. Based on NCCN guidelines, I recommended that we proceed with Oncotype DX testing to determine if she would benefit from adjuvant chemotherapy in addition to adjuvant endocrine therapy. -Her Oncotype DX testing came back with a score of 17 which is low. Based on this her absolute benefit of adjuvant chemotherapy would be less than 1%. Also, her risk of recurrence at 9 years with either an AI or tamoxifen is 5%. -I discussed the Oncotype DX testing results with her. Given this I would not recommend adjuvant chemotherapy in addition to adjuvant endocrine therapy. She was happy to hear this. -Given she had a lumpectomy, I do recommend adjuvant radiation to reduce the risk of local recurrence. I will place a referral in today for her to see radiation oncology for further recommendations. -I will plan to see her back after her radiation is complete. At that time we will discuss startingadjuvant endocrine therapy with either an aromatase inhibitor or tamoxifen based on her menopausal status. -If we start an aromatase inhibitor, I would also get a baseline DEXA scan to assess her bone density. Diabetes: Per patient history. She will continue to follow with her PCP for this. Hypertension: Per patient history. She will continue follow-up with her PCP for this. RTC 2 months Education Provided Education/Instructions given to: (x) Patient (_) Spouse (_) Parent (_) Other Barriers to Learning: (x) None (_) Yes (identify):_ Content: (x) Refer to note above (_)Other (identify):_ Evaluation/Outcome: (x) Verbalized understanding (_) Demonstrated understanding NCCN Guidelines Consulted: (x ) Yes ( ) No Recommendations Concordant with Guidelines: ( x ) Yes ( ) No Reason for Non-Concordance: n/a documented in this encounter* Grace Sauceda MD - 04/25/2019 2:38 PM EDT CONSULT NOTE [facility] Radiation Oncology [address] [place], [place] [address] [email or web address] Patient Name: Lyn Harry MR #: [id number] : 1960 Physicians: Dereje Trejo MD (Family); Marion Garrett MD (Referring) Stage: I [id number] ID of the right breast History of Present Illness: Lyn Harry is a 59 y.o. white female who presented with a suspicious lesion on her most recent annual MMG on 01/24/19. This was confirmed by magnification views but notby US. She underwent biopsy which was positive for ID, ER/AL+, her 2 marily negative. On 02/27/19 she underwent lumpectomy and SLN bx. 4 nodes were negative, tumor meausred 1.9 cm, was grade 1. Oncotype DX was 17 and she did not require chemotherapy. She denies ever having palpable mass, erythema, nipple discharge, pain in the breast. She denies weight loss, fatigue or NS. 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 She used BCP for 2 years, did not use HRT. She did not breastfeed. Pertinent Imaging Reviewed: No images are attached to the encounter. Pertinent labs: Lab Draw on 03/28/2019 Component Date Value Ref Range Status Microalb, Ur 03/28/2019 0.5 0.0 - 1.8 mg/dL Final Microalbumin/Creat Ratio 03/28/2019 14 0 - 25 mg/g crea Final Creatinine, Ur, Random 03/28/2019 34.9 mg/dL Final Hepatitis C Ab 03/28/2019 Negative Negative Final Hemoglobin A1C 03/28/2019 6.2* 4.0 - 5.6 % Final Estimated Average Glucose 03/28/2019 131* 68 - 114 mg/dL Final Sodium 03/28/2019 138 135 - 145 mmol/L Final Potassium 03/28/2019 3.9 3.5 - 5.1 mmol/L Final Chloride 03/28/2019 104 98 - 108 mmol/L Final Bicarbonate 03/28/2019 28 21 - 32 mmol/L Final Anion Gap 03/28/2019 10 10 - 20 mmol/L Final Glucose 03/28/2019 173* 65 - 99 mg/dL Final BUN 03/28/2019 12 8 - 25 mg/dL Final Creatinine 03/28/2019 0.94 0.40 - 1.10 mg/dL Final eGFR 03/28/2019 68 >=60 mL/min/1.73 m2 Final BUN/Creatinine Ratio 03/28/2019 12.8 10.0 - 20.0 Final Total Protein 03/28/2019 7.5 6.0 - 8.0 g/dL Final Albumin 03/28/2019 4.1 3.2 - 5.2 g/dL Final Calcium 03/28/2019 9.2 8.4 - 10.2 mg/dL Final Alkaline Phosphatase 03/28/2019 72 40 - 150 U/L Final AST 03/28/2019 20 0 - 45 U/L Final Total Bilirubin 03/28/2019 0.7 0.0 - 1.3 mg/dL Final ALT 03/28/2019 34 14 - 65 U/L Final Admission on 02/27/2019, Discharged on 02/27/2019 Component Date Value Ref Range Status Glucose 02/27/2019 139* 65 - 99 mg/dL Final Case Report 02/27/2019 Final Value:Surgical Pathology Report Case: [id number] Authorizing Provider: Braden Gee MD Collected: 02/27/2019 12:38 PM Ordering Location: [facility] [place] Received: 02/27/2019 12:55 PM Pathologist: Kirby Olvera IV, MD Specimens: A) - Lymph Node, [place], Axillary, Right, [place] Lymph Node A B) - Lymph Node, [place], Axillary, Right, [place] Lymph Node B C) - Breast, Right, Right Breast Lumpectomy D) - Lymph Node, [place], Axillary, Right, Additional [place] Lymph Node Addendum 02/27/2019 Final Value:This result contains rich text formatting which cannot be displayed here. Final Diagnosis 02/27/2019 Final Value:This result contains rich text formatting which cannot be displayed here. Gross Description 02/27/2019 Final Value:This result contains rich text formatting which cannot be displayed here. Intraoperative Consultation 02/27/2019 Final Value:This result contains rich text formatting which cannot be displayed here. Microscopic Description 02/27/2019 Final Value:This result contains rich text formatting which cannot be displayed here. Glucose 02/27/2019 137* 65 - 99 mg/dL Final Office Visit on 02/21/2019 Component Date Value Ref Range Status Sodium 02/21/2019 140 135 - 145 mmol/L Final Potassium 02/21/2019 4.2 3.5 - 5.1 mmol/L Final Chloride 02/21/2019 104 98 - 108 mmol/L Final Bicarbonate 02/21/2019 29 21 - 32 mmol/L Final Anion Gap 02/21/2019 11 10 - 20 mmol/L Final Glucose 02/21/2019 163* 65 - 99 mg/dL Final BUN 02/21/2019 13 8 - 25 mg/dL Final Creatinine 02/21/2019 0.95 0.40 - 1.10 mg/dL Final eGFR 02/21/2019 67 >=60 mL/min/1.73 m2 Final BUN/Creatinine Ratio 02/21/2019 13.7 10.0 - 20.0 Final Calcium 02/21/2019 9.5 8.4 - 10.2 mg/dL Final Protime (PT) 02/21/2019 12.4 11.8 - 14.3 seconds Final INR 02/21/2019 1.0 0.8 - 1.1 Final WBC 02/21/2019 4.48* 4.50 - 11.00 K/mcL Final RBC 02/21/2019 4.39 4.00 - 5.20 M/mcL Final Hemoglobin 02/21/2019 13.6 12.0 - 16.0 g/dL Final Hematocrit 02/21/2019 38.9 36.0 - 46.0 % Final MCV 02/21/2019 88.6 80.0 - 100.0 fL Final MCH 02/21/2019 31.0 26.0 - 34.0 pg Final MCHC 02/21/2019 35.0 31.0 - 37.0 g/dL Final Platelets 02/21/2019 159 150 - 400 K/mcL Final RDW - CV 02/21/2019 12.8 11.6 - 14.8 % Final MPV 02/21/2019 10.5 9.0 - 15.5 fL Final Neutrophils 02/21/2019 49.8 % Final Lymphocytes 02/21/2019 40.4 % Final Monocytes 02/21/2019 6.9 % Final Eosinophils 02/21/2019 1.8 % Final Basophils 02/21/2019 0.7 % Final IG Percent 02/21/2019 0.40 % Final Neutrophils Abs 02/21/2019 2.23 1.70 - 7.00 K/mcL Final Lymphocytes Abs 02/21/2019 1.81 0.90 - 4.00 K/mcL Final Monocytes Abs 02/21/2019 0.31 0.30 - 0.90 K/mcL Final Eosinophils Abs 02/21/2019 0.08 0.00 - 0.50 K/mcL Final Basophils Abs 02/21/2019 0.03 0.00 - 0.30 K/mcL Final IG Absolute 02/21/2019 0.02 0.00 - 0.30 K/mcL Final Nucleated RBC 02/21/2019 0.0 % Final Nucleated RBC Abs 02/21/2019 0.00 0.00 - 0.00 K/mcL Final History: Past Medical History: Diagnosis Date Breast cancer (HCC) 01/31/2019 Right-Invasive mammary carcinoma Diabetes mellitus (HCC) Elevated blood-pressure reading, without diagnosis of hypertension 01/02/2019 GERD (gastroesophageal reflux disease) Hyperlipidemia Hypertension Seasonal allergies Past Surgical History: Procedure Laterality Date APPENDECTOMY BREAST BIOPSY Right ultrasound BREAST LUMPECTOMY W/ SENTINEL NODE, NEEDLE LOC, POSS AX DIS Right 02/27/2019 Procedure: RIGHT BREAST LUMPECTOMY WITH SENTINEL NODE BIOPSY WITH NEEDLE LOCALIZATION AND POSSIBLE AXILLARY DISSECTION; Surgeon: Braden Gee MD; Location: Main OR; Service: General Surgery SECTION, CLASSIC 1997 COLONOSCOPY 05/19/2017 Normal....Dr. Blackmon D & C WITH LEEP 1994 EXPLORATORY LAPAROTOMY for infertility MM NEEDLE LOCALIZATION RIGHT Right 02/27/2019 MM NEEDLE LOCALIZATION RIGHT 02/27/2019 MAMMOGRAPHY US BREAST BIOPSY RIGHT Right 01/31/2019 US BREAST BIOPSY RIGHT 01/31/2019, invasive mammary carcinoma US BREAST BIOPSY RIGHT Right 02/06/2019 US BREAST BIOPSY RIGHT Home Medications: Outpatient Medications as of 04/25/2019 Medication Sig atorvastatin (LIPITOR) 40 MG tablet Take 1 (one) tablet (40 mg total) by mouth daily . fexofenadine (LAVERNE) 180 MG tablet Take 180 mg by mouth daily as needed . lisinopril (PRINIVIL,ZESTRIL) 5 MG tablet Take 1 (one) tablet (5 mg total) by mouth daily . omeprazole (PRILOSEC) 40 MG capsule Take 1 (one) capsule (40 mg total) by mouth daily . metFORMIN (GLUCOPHAGE XR) 500 MG 24 hr tablet Take 1 (one) tablet (500 mg total) by mouth daily with breakfast . Allergy Information: I have reviewed the patient's allergies. Penicillins and Nsaids (non-steroidal anti-inflammatory drug) Family History Problem Relation Age of Onset Aneurysm Father Heart attack Paternal Grandfather Cancer Paternal Grandmother Social History: Work outside of home: yes Smoke: no Drink: socialRecreational drug use: Illegal substances: No Review of Systems: The following system(s) were reviewed and pertinent findings noted: All other systems were negative upon review. 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 CN 2-12 grossly intact. Gait Assessment and Plan:This is a 59 year old white female with early stage breast cancer, who would lili good candidate for breast conservation therapy. We discussed the rationale for radiotherapy and the use in breast conservation therapy. We discussed the randomized trials in NSABP and EORTC decreased rates of recurrence with the use of radiotherapy. We also discussed the hypofractionation trials and she was pleased to know that she was eligible for this. I spent considerable time with the patient and their family to explain the risks, benefits and alternatives to radiotherapy. Side effects were included but not limited to the following: Fatigue, skin irritation and erythema, increased fibrosis of soft tissue. Possible pneumonitis and increased risk of second cancer. I reviewed in detail the processes and procedures of radiation and simulation. All questions were answered to their apparent satisfaction. Informed consent was signed and an appointment for simulation with instructions regarding simulation was given. She will be simulated this week. She will have CXR to complete her staging. CBC and TFT's have already been done and are WNL. Grace Sauceda M.D. Radiation Oncologist * Nilsa Domínguez RN - 04/25/2019 1:[address] Radha Garrett [facility] onc. Dr. Gee surgeon * Nilsa Domínguez RN - 04/25/2019 1:27 PM EDT Review of Systems Constitutional: Negative. HENT: Negative. Eyes: Negative. Respiratory: Negative. Cardiovascular: Negative. Gastrointestinal: Negative. Endocrine: Negative. Genitourinary: Negative. Musculoskeletal: Negative. Skin: Negative. Neurological: Negative. Psychiatric/Behavioral: Negative for depression and suicidal ideas. The patient is not nervous/anxious. documented in this encounter* Leno Pelletier MD - 05/16/2019 8:50 AM EDT TREATMENT VISIT NOTE DIAGNOSIS: No primary diagnosis found. STAGE: Cancer Staging No matching staging information was found for the patient. TREATMENT TO DATE: Plan Name: Treatment Date: Value Total Dose to Date (cGy) 2128 Prescription Dose (cGy) 5256 Fractions Treated to Date 6 Total Fractions Prescribed 21 Dose per fraction 266/200 boost Elapsed Days 9 TREATMENT INTENT: Curative Blood pressure (!) 150/92, pulse 67, weight 93 kg (205 lb). SUBJECTIVE No complains OBJECTIVE PACU Vitals 05/16/19 0834 BP: (!) 150/92 Pulse: 67 ASSESSMENT Mild redness TOXICITY ASSESSMENT none IMAGING AND SETUP PLAN continue documented in this encounter* Leroy Ayala MD - 05/29/2019 11:16 AM EDT [facility] Department of Radiation Oncology [address] [place] [address] ON TREATMENT VISIT NOTE DIAGNOSIS: Invasive ductal carcinoma of breast, female, right (HCC) [C50.911] STAGE: Cancer Staging Invasive ductal carcinoma of breast, female, right (HCC) Staging form: Breast, AJCC 8th Edition - Pathologic stage from 05/29/2019: Stage IA (pT1c, pN0, cM0, G1, ER+, AL+, HER2-, Oncotype DX score:17) - Signed by Leroy Ayala MD on 05/29/2019 TREATMENT TO DATE: Rt Breast 05/25/2019 Value Treatment Date Reference Point Rt Breast; cp R BRST 05/25/2019 Total Dose to Date (cGy) 3,990; 4,071 05/25/2019 Prescription Dose (cGy) 4,256 05/25/2019 Fractions Treated to Date 15 05/25/2019 Total Fractions Prescribed 16 05/25/2019 Prescribed Dose per Fraction (cGy) 266 05/25/2019 Elapsed Days 18 05/25/2019 Unverified data imported from [facility]. May not reflect actual given/total prescription dose. TREATMENT INTENT: Adjuvant SUBJECTIVE No new complaints. OBJECTIVE PACU Vitals 05/29/19 0838 BP: Pulse: PainLoc: Breast Skin intact, no desquamation. Mild erythema ASSESSMENT Tolerating XRT well. TOXICITY ASSESSMENT Toxicity Assessment IMAGING AND SETUP Her imaging was reviewed. No changes needed in her setup or imaging orders. PLAN Continue XRT. Leroy Ayala MD PhD Radiation Oncology [phone] documented in this encounter* Izabella Lopez RN - 06/05/2019 10:09 AM EDT Left message with return contact information. documented in this encounter* Neto Ivey MD - 07/06/2019 5:27 PM EDT Follow-up note Interval since irradiation treatment: 1 month Diagnosis: CA right breast, ductal carcinoma, upper outer quadrant, Size 1.9 cm. Stage T2 N0 M0, Oncotype 17, ER AL positive HER-2 negative Radiotherapy summary. Patient has received a total of 40 to 56 Gy in 16 fractions dates of treatment 610 2 05/28/2019 Tumor status and treated volume: JOSÉ, the acute side effects to radiation has subsided. There is nodominant mass noted in both the breasts. Interval history: Ms. Buckner is a very pleasant 59-year-old lady was seen as one- month follow-up after whole breast radiation to right breast. She has no complaint her appetite is good and her performance status is excellent On examination: There is no evidence of dominant mass noted in both the breasts. The acute radiation changes have subsided. No evidence of lymphadenopathy in the neck axilla or in the groin. Lungs are clear to auscultation percussion, heart sounds are normal. No hepatosplenomegaly. There is no focal neurological deficit noted. No bony tenderness and her gait is normal. Impression: No evidence of persistent or recurrent disease after 1 month of. Treatment. Next visit: 3 months along with medical oncology and surgery * Chandan Barrett RN - 07/05/2019 10:08 AM EDT Patient is being followed by Dr.K Garrett. Dr Gee and her PCP. She has began taking Arimidex. Denies any issues or concerns. documented in this encounter* Dereje Trejo MD - 07/09/2019 1:30 PM EDT Lyn Harry 1960 [id number] HPI: Patient was here today to follow-up on her chronic medical problems. Hypertension, hyperlipidemia, GERD: Patient has been compliant with all the prescribed medications including lisinopril without any significant adverse effects and stated that her blood pressures in the morning time have been on the high side in the range of 140 150/70 90 but later in the day her blood pressures have been well under control in the range of 110 120/70 80. She usually has been taking her blood pressure medication in the morning time. Has been compliant with low-fat and low-cholesterol diet but does not do any regular aerobic exercise and her latest lipid panel showed cholesterol within the target range with an LDL at 48 but elevated triglycerides at 210. Denies any significant symptoms of GERD-like heartburn, dyspepsia, epigastric discomfort, nausea/vomiting as long as she takes the Prilosec. Patient Active Problem List Diagnosis SNOMED CT(R) Type 2 diabetes mellitus (HCC) TYPE 2 DIABETES MELLITUS Mixed hyperlipidemia MIXED HYPERLIPIDEMIA GERD without esophagitis GASTROESOPHAGEAL REFLUX DISEASE WITHOUT ESOPHAGITIS Seasonal allergies SEASONAL ALLERGY Vitamin D deficiency VITAMIN D DEFICIENCY PCOS (polycystic ovarian syndrome) POLYCYSTIC OVARY SYNDROME NAFL (nonalcoholic fatty liver) NON-ALCOHOLIC FATTY LIVER Invasive ductal carcinoma of breast, female, right (HCC) INFILTRATING DUCT CARCINOMA OF RIGHT FEMALE BREAST Essential hypertension ESSENTIAL HYPERTENSION Past Medical History: Diagnosis Date Breast cancer (HCC) 01/31/2019 Right-Invasive mammary carcinoma Diabetes mellitus (HCC) Elevated blood-pressure reading, without diagnosis of hypertension 01/02/2019 GERD (gastroesophageal reflux disease) Hyperlipidemia Hypertension Seasonal allergies Past Surgical History: Procedure Laterality Date APPENDECTOMY BREAST BIOPSY Right ultrasound BREAST LUMPECTOMY W/ SENTINEL NODE, NEEDLE LOC, POSS AX DIS Right 02/27/2019 Procedure: RIGHT BREAST LUMPECTOMY WITH SENTINEL NODE BIOPSY WITH NEEDLE LOCALIZATION AND POSSIBLE AXILLARY DISSECTION; Surgeon: Braden Gee MD; Location: Main OR; Service: General Surgery SECTION, CLASSIC 1996 COLONOSCOPY 05/19/2017 Normal....Dr. Blackmon D & C WITH LEEP 1994 EXPLORATORY LAPAROTOMY for infertility MM NEEDLE LOCALIZATION RIGHT Right 02/27/2019 MM NEEDLE LOCALIZATION RIGHT 02/27/2019 MAMMOGRAPHY US BREAST BIOPSY RIGHT Right 01/31/2019 US BREAST BIOPSY RIGHT 01/31/2019, invasive mammary carcinoma US BREAST BIOPSY RIGHT Right 02/06/2019 US BREAST BIOPSY RIGHT Social History Socioeconomic History Marital status: Spouse name: Not on file Number of children: Not on file Years of education: Not on file Highest education level: Not on file Occupational History Not on file Social Needs Financial resource strain: Not on file Food insecurity: Worry: Not on file Inability: Not on file Transportation needs: Medical: Not on file Non-medical: Not on file Tobacco Use Smoking status: Never Smoker Smokeless tobacco: Never Used Substance and Sexual Activity Alcohol use: Not Currently Comment: SOCIALLY Drug use: No Sexual activity: Never Lifestyle Physical activity: Days per week: Not on file Minutes per session: Not on file Stress: Not on file Relationships Social connections: Talks on phone: Not on file Gets together: Not on file Attends adventism service: Not on file Active member of club or organization: Not on file Attends meetings of clubs or organizations: Not on file Relationship status: Not on file Other Topics Concern Not on file Social History Narrative Not on file Family History Problem Relation Age of Onset Heart attack Paternal Grandfather Cancer Paternal Grandmother Unknown Cancer Lung cancer Paternal Aunt Review of Systems Constitutional: Negative for appetite change, chills, fatigue, fever and unexpected weight change. Respiratory: Negative for cough, shortness of breath and wheezing. Cardiovascular: Negative for chest pain, palpitations and leg swelling. Gastrointestinal: Negative for abdominal pain, blood in stool, constipation, diarrhea, nausea and vomiting. Endocrine: Negative for cold intolerance, heat intolerance, polydipsia, polyphagia and polyuria. Neurological: Negative for dizziness, light-headedness, numbness and headaches. Psychiatric/Behavioral: Negative for dysphoric mood and sleep disturbance. The patient is not nervous/anxious. Physical Exam: Vitals: 07/09/19 1326 BP: 117/82 BP Location: Left arm Patient Position: Sitting BP Cuff Size: Adult Pulse: 67 Resp: 14 Temp: 98.6 F (37 C) TempSrc: Oral SpO2: 95% Weight: 92.1 kg (203 lb) Physical Exam Constitutional: She appears well-nourished. No distress. Neck: Carotid bruit is not present. Cardiovascular: Normal rate, regular rhythm, normal heart sounds and intact distal pulses. No murmur heard. Pulmonary/Chest: Effort normal and breath sounds normal. No respiratory distress. She has no wheezes. She has no rales. Abdominal: Soft. She exhibits no distension. There is no tenderness. Musculoskeletal: She exhibits no edema. Assessment & Plan: SNOMED CT(R) 1. Essential hypertension ESSENTIAL HYPERTENSION 2. Mixed hyperlipidemia MIXED HYPERLIPIDEMIA 3. GERD without esophagitis GASTROESOPHAGEAL REFLUX DISEASE WITHOUT ESOPHAGITIS Hypertension: Blood pressure now seems to be well under control but patient claims that her blood pressure in the morning time seems to be running on the high side and hence she was advised to start taking lisinopril in the evening. Patient was advised to continue to closely monitor her blood pressure at home and call us back if it is still out of the target range. Target blood pressure goals were again discussed today. GERD: Stable with symptoms under control. Continue same medication. Hyperlipidemia: Seems to be reasonably under control though slightly high triglycerides. Patient was advised to continue same medication but stressed on compliance with low-fat and low-cholesterol diet and regular aerobic exercise. Latest labs were reviewed and discussed in detail with patient. Return in about 3 months (around 10/09/2019), or if symptoms worsen or fail to improve. Patient education & instructions given for: Patient was advised to avoid smoking, alcohol. Patient was also counseled for fall precautions. Details of medical condition explained and patient/caregiver was warned about the adverse consequences of uncontrolled medical conditions. Also cautioned about possible common adverse-effects and drug interactions of prescribed/OTC medications and also OTC/herbal supplements. Patient was recommended to review the medication information pamphlets/package inserts for complete list of adverse effects/contraindications, drug interactions etc., before starting any new medication. Patient was advisedto watch for any adverse effects, and instructed to immediately discontinue the medication and callus or go to ER if experiencing any adverse affects from the medications. Advised not to drive/drinkalcohol/use heavy machinery when taking narcotic/other sedating medications. Counseling for diet and exercise provided. All the addressed problems were discussed with the patient and advice given to call with any concerns or return to the office or go to a nearby ER if the symptoms do not improve or worsen or new symptoms develop. If any referrals were placed or tests ordered at today's visit, the patient was instructed to call the office if they haven't heard anything about the scheduling of referral or tests, within 2 weeks of today's visit. Health maintenance/preventive screening reviewed / ordered: Offered age- appropriate preventive services and screening. Screening colonoscopy April 2017: Normal colonoscopy. Please note: Portions of this chart may have been created with [employer] voice recognition software. Occasional wrong-word or "sound-like" substitutions may have occurred due to inherent limitations of the voice recognition software. Please read the chart carefully and recognize, using context, where the substitutions have occurred. Dereje Trejo MD documented in this encounter* Shannan Calzada, JS - 09/20/2019 3:20 PM EDT Oncology Survivorship Visit Note Diagnosis: Right breast invasive ductal carcinoma, ER/AL +, HER2/marily negative Date of Diagnosis: 01/31/19 Primary Care Provider: Dr. Trejo Surgeon: Dr. Gee Medical Oncologist: Dr. Marion Garrett Radiation Oncologist: Dr. Pelletier History of Present Illness History of Present Illness: Ms. Harry is a 59-year-old female who presents for her initial survivorship visit. She has a history of diabetes, GERD, HLD, PCOS, and seasonal allergies who is being seen by oncology for a new diagnosis of stage IA right breast invasive ductal carcinoma, ER/AL +, HER2/marily negative. The patient states that she was not having any issues prior to the diagnosis. This was found on a routine screening mammogram. She says she had a mammogram last year that was normal. She had a mammogram at the end of December which noted a right breast lesion that was concerning for malignancy. Given this they proceeded with a biopsy which confirmed right breast invasive ductal carcinoma, ER AL positive, HER-2/marily negative. She was then referred to see Dr. Gee. They discussed surgical options and the patient elected to proceed with a right breast lumpectomy and sentinel lymph node dissection. She tolerated surgery well and is healing well from her surgery. This was performed in early February. Her final pathology shows a tumor measuring up to 1.9 cm. The sentinel lymph node were negativefor malignancy. It was overall grade 1. Her final pathology shows a pT1c pN0 Mx stage I a invasive ductal carcinoma of the right breast, ER/AL positive, HER- 2/marily negative. Her Oncotype DX testing came back with a score of 17 which is low. Based on this her absolute benefit of adjuvant chemotherapy would be less than 1%. Also, her risk of recurrence at 9 years with either an AI or tamoxifen is 5%. Shecompleted adjuvant radiation. She had this from 05/07/2019 to 06/05/2019. She was initiated on adjuvant endocrine therapy with Anastrozole 1 mg dailygiven her hormone positive malignancy on 06/19/2019. Past Medical and Surgical History Past medical history reviewed Past Medical History: Diagnosis Date Breast cancer (HCC) 01/31/2019 Right-Invasive mammary carcinoma Diabetes mellitus (HCC) Elevated blood-pressure reading, without diagnosis of hypertension 01/02/2019 GERD (gastroesophageal reflux disease) Hyperlipidemia Hypertension Seasonal allergies Past surgical history reviewed Past Surgical History: Procedure Laterality Date APPENDECTOMY BREAST BIOPSY Right ultrasound BREAST LUMPECTOMY W/ SENTINEL NODE, NEEDLE LOC, POSS AX DIS Right 02/27/2019 Procedure: RIGHT BREAST LUMPECTOMY WITH SENTINEL NODE BIOPSY WITH NEEDLE LOCALIZATION AND POSSIBLE AXILLARY DISSECTION; Surgeon: Braden Gee MD; Location: Main OR; Service: General Surgery SECTION, CLASSIC 1996 COLONOSCOPY 05/19/2017 Normal....Dr. Blackmon D & C WITH LEEP 1994 EXPLORATORY LAPAROTOMY for infertility MM NEEDLE LOCALIZATION RIGHT Right 02/27/2019 MM NEEDLE LOCALIZATION RIGHT 02/27/2019 MH MAMMOGRAPHY US BREAST BIOPSY RIGHT Right 01/31/2019 US BREAST BIOPSY RIGHT 01/31/2019, invasive mammary carcinoma US BREAST BIOPSY RIGHT Right 02/06/2019 US BREAST BIOPSY RIGHT Allergies and Medications Allergies Allergen Reactions Penicillins Swelling Strong family history of penicillin allergy. Current Outpatient Medications Medication Sig Dispense Refill anastrozole (ARIMIDEX) 1 mg tablet Take 1 (one) tablet (1 mg total) by mouth daily . 30 tablet 5 atorvastatin (LIPITOR) 40 MG tablet Take 1 (one) tablet (40 mg total) by mouth daily . 30 tablet 5 calcium carbonate-vitamin D3 (CALCIUM 600 + D,3,) 600 mg(1,500mg) -400 unit per tablet Take 1 tablet by mouth 2 (two) times a day . fexofenadine (LAVERNE) 180 MG tablet Take 180 mg by mouth daily as needed . lisinopril (PRINIVIL,ZESTRIL) 5 MG tablet Take 1 (one) tablet (5 mg total) by mouth daily . 30 tablet 11 metFORMIN (GLUCOPHAGE XR) 500 MG 24 hr tablet Take 1 (one) tablet (500 mg total) by mouth daily with breakfast . 30 tablet 5 omeprazole (PRILOSEC) 40 MG capsule Take 1 (one) capsule (40 mg total) by mouth daily . 30 capsule 11 No current facility-administered medications for this visit. Family and Social History Family History Father: Living age 87 Mother: Living age 81 Siblings: 4 brothers 3 sisters all living. Some with hypertension Children: 3 children, triplets. 2 sons and one daughter - age 22 Reproductive risk factors: Age of menarche at 17 years Age of menopause at 56 years. 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 control pills: yes. Hormone replacement therapy: yes. Caffeine intake yes History of prior breast biopsy no History of prior breast cancer no Family History : Breast cancer no Ovarian Cancer no Endometrial cancer no Family History of breast disease no Social History: Patient is . 2 children still live at home. . 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 HENT: Negative for ear pain and trouble swallowing. Eyes: Negative for pain and discharge. Respiratory: Negative for cough, shortness of breath and wheezing. Cardiovascular: Negative for chest pain, palpitations and leg swelling. Gastrointestinal: Negative for abdominal pain, constipation, diarrhea, nausea and vomiting. Endocrine: Negative for cold intolerance and heat intolerance. Genitourinary: Negative for difficulty urinating and dysuria. Musculoskeletal: Negative for arthralgias, back pain and gait problem. Skin: Negative for rash. Allergic/Immunologic: Negative for environmental allergies and food allergies. Neurological: Negative for dizziness, weakness and headaches. Hematological: Negative for adenopathy. Does not bruise/bleed easily. Psychiatric/Behavioral: Negative for confusion and sleep disturbance. Physical Exam PACU Vitals 09/20/19 1458 BP: 134/84 Pulse: 83 Temp: 98.8 F (37.1 C) SpO2: 94% Physical Exam Constitutional: She is oriented to person, place, and time. She appears well- developed and well-nourished. She is cooperative. No distress. HENT: Head: Normocephalic and atraumatic. Eyes: Pupils are equal, round, and reactive to light. Neck: No thyromegaly present. Cardiovascular: Normal rate, regular rhythm, S1 normal and S2 normal. No murmur heard. Pulmonary/Chest: Effort normal and breath sounds normal. She has no wheezes. She has no rales. Right breast with 3 cm horizontal incision that is located about 2 cm above the nipple, well-healed, no erythema or drainage. Mild erythema from radiation. No masses palpated in right breast. No axillary adenopathy appreciated. Left breast with no masses palpated or skin changes or nipple discharge. No axillary adenopathy. Abdominal: Soft. Bowel sounds are normal. She exhibits no distension. There is no splenomegaly or hepatomegaly. There is no tenderness. Musculoskeletal: Normal range of motion. Lymphadenopathy: Head (right side): No submental, no submandibular, no tonsillar, no preauricular and no posterior auricular adenopathy present. Head (left side): No submental, no submandibular, no tonsillar, no preauricular and no posterior auricular adenopathy present. Right cervical: No superficial cervical, no deep cervical and no posterior cervical adenopathy present. Left cervical: No superficial cervical, no deep cervical and no posterior cervical adenopathy present. She has no axillary adenopathy. Right axillary: No pectoral and no lateral adenopathy present. Left axillary: No pectoral and no lateral adenopathy present. Right: No inguinal, no supraclavicular and no epitrochlear adenopathy present. Left: No inguinal, no supraclavicular and no epitrochlear adenopathy present. Neurological: She is alert and oriented to person, place, and time. She has normal strength. She displays a negative Romberg sign. Gait normal. Skin: Skin is warm and dry. Psychiatric: She has a normal mood and affect. Judgment and thought content normal. Survivorship Recommendations NCCN distress thermometer score of 1. Problem list indicates no problems Age-appropriate health screenings reviewed with patient: Mammogram 12/30/2018, then annually Bone density 08/16/2019 with T score of -0.3 indicating normal results Recommend Calcium 1200 mg (total diet plus supplement) daily and Vitamin D 800 IU daily Colonoscopy 05/19/2017 Recommend annual influenza vaccination Recommend Prevnar 13 pneumococcal vaccination after age 65, or ages 14-64 if immunocompromised -This is a one-time vaccination -This should be given 1 year prior to pneumococcal vaccination with PPSV 23 Recommend pneumococcal vaccination with PPSV 23 -No additional dose of PPSV 23 is indicated if you were vaccinated at or after age 65 - If you received PPSV 23 before age 65, you should receive a one-time revaccination 5 years after your first PPSV 23 dose -Recommend at least 1 dose of Tdap vaccination, which protects against tetanus and Pertussis Recommend Shingrex (Shingles) vaccination after age 60, or 50 years of age if immunocompromised - This is a two-step vaccination. The second dose is given two to six months after the first Recommend moderate-intensity exercise for 150 minutes a week such as walking briskly (3 miles per hour or faster, but not race-walking), Water aerobics, Bicycling slower than 10 miles per hour, Tennis (doubles) ,Ballroom dancing, General gardening Suggested Area Support Available [facility] Cancer Wellness Exercise Program - call the [facility] [phone] [employer] exercise program at [facility] -call Ramírez Jayla at [phone] extension [phone] for more information Grocery market tour for education on healthy eating with [facility] patient education, call [phone] to schedule appointment [facility] support [facility] -meet third Tuesday of every month at 12 noon and radiation therapy building. Call Jennifer Lopez, breast nurse navigator at [phone] for more information [id number] - Call Zoya Scanlon at [phone] for more information Facing forward, Life after Cancer Treatment booklet given Oncology treatment summary and survivorship care plan reviewed with patient Assessment/Plan Assessment:Ms. Harry is a 59-year-old female who presents for her initial survivorship visit. She has a history of diabetes, GERD, HLD, PCOS, and seasonal allergies who is being seen by oncology for a new diagnosis of stage IA right breast invasive ductal carcinoma, ER/AL +, HER2/marily negative. The patient states that she was not having any issues prior to the diagnosis. This was found on a routine screening mammogram. She says she had a mammogram last year that was normal. She had a mammogram at the end of December which noted a right breast lesion that was concerning for malignancy. Given this they proceeded with a biopsy which confirmed right breast invasive ductal carcinoma, ER AL positive, HER-2/marily negative. She was then referred to see Dr. Gee. They discussed surgical options and the patient elected to proceed with a right breast lumpectomy and sentinel lymph node dissection. She tolerated surgery well and is healing well from her surgery. This was performed in early February. Her final pathology shows a tumor measuring up to 1.9 cm. The sentinel lymph node were negativefor malignancy. It was overall grade 1. Her final pathology shows a pT1c pN0 Mx stage I a invasive ductal carcinoma of the right breast, ER/AL positive, HER- 2/marily negative. Her Oncotype DX testing came back with a score of 17 which is low. Based on this her absolute benefit of adjuvant chemotherapy would be less than 1%. Also, her risk of recurrence at 9 years with either an AI or tamoxifen is 5%. Shecompleted adjuvant radiation. She had this from 05/07/2019 to 06/05/2019. She was initiated on adjuvant endocrine therapy with Anastrozole 1 mg dailygiven her hormone positive malignancy on 06/19/2019. Plan: Age-appropriate health screenings reviewed with patient: Mammogram 12/30/2018, then annually Bone density 08/16/2019 with T score of -0.3 indicating normal results Recommend Calcium 1200 mg (total diet plus supplement) daily and Vitamin D 800 IU daily Colonoscopy 05/19/2017 Recommend annual influenza vaccination Recommend Prevnar 13 pneumococcal vaccination after age 65, or ages 14-64 if immunocompromised -This is a one-time vaccination -This should be given 1 year prior to pneumococcal vaccination with PPSV 23 Recommend pneumococcal vaccination with PPSV 23 -No additional dose of PPSV 23 is indicated if you were vaccinated at or after age 65 - If you received PPSV 23 before age 65, you should receive a one-time revaccination 5 years after your first PPSV 23 dose -Recommend at least 1 dose of Tdap vaccination, which protects against tetanus and Pertussis Recommend Shingrex (Shingles) vaccination after age 60, or 50 years of age if immunocompromised - This is a two-step vaccination. The second dose is given two to six months after the first Recommend moderate-intensity exercise for 150 minutes a week such as walking briskly (3 miles per hour or faster, but not race-walking), Water aerobics, Bicycling slower than 10 miles per hour, Tennis (doubles) ,Ballroom dancing, General gardening Suggested Area Support Available [facility] Cancer Wellness Exercise Program - call the [facility]at [phone] [employer] exercise program at [facility] -call Ramírez Dickerson at [phone] extension [phone] for more information Grocery market tour for education on healthy eating with [facility] patient education, call [phone] to schedule appointment Placido Gruber breast cancer support group -meet third Tuesday of every month at 12 noon and radiation therapy building. Call Jennifer Lopez breast nurse navigator at [phone] for more information [id number] - Call Zoya Scanlon at [phone] for more information Facing forward, Life after Cancer Treatment booklet given Oncology treatment summary and survivorship care plan reviewed with patient A total of 60 minutes was spent with patient, 100% of the time was [id number]. Greater than 50% of the time was spent in counseling/review of oncology treatment plan and survivorship plan Education Provided Education/Instructions given to: (x) Patient (_) Spouse (_) Parent (_) Other Barriers to Learning: (x) None (_) Yes (identify):_ Content: (x) Refer to note above (_)Other (identify):_ Evaluation/Outcome: (x) Verbalized understanding (_) Demonstrated understanding (_) Other:_ Symptom Management: 1. Pain Assessment/Effectiveness of Narcotics: n/a 2. Narcotic induced Constipation: n/a 3. Emotional Well Being Assessment: Stable, no signs or symtoms of depression 4. Chemotherapy Side effects: n/a Advanced Directives: Full Code ALEXANDRE Young- NCCN Guidelines NCCN guidelines for invasive breast cancer 1. History and physical exam 1-4 times per year as clinically appropriate for 5 years, then annually 2. Periodic screening for changes in family history and referral to genetic counseling as indicated 3. Educate, monitor, and refer for lymphedema management 4. Mammography every 12 months 5. Routine imaging of reconstructed breast is not indicated 6. In the absence of clinical signs and symptoms suggestive of recurrent disease, there is no indication for laboratory or imaging studies for metastasis screening 7. Women on tamoxifen: Annual gynecologic assessment every 12 months of uterus present 8. Women on an aromatase inhibitor or could experienced ovarian failure secondary to treatment should have monitoring of bone health with a bone mineral density determination at baseline and periodically thereafter 9. Assessment encourage adherence to adjuvant endocrine therapy 10. Evidence suggest that an active lifestyle, healthy diet, limited alcohol intake, and achieving and maintaining an ideal body weight of 20-25 BMI may lead to optimal breast cancer outcomes Note: This dictation was generated using [employer] voice recognition software. Please excuse any grammatical or spelling errors that may have occurred using the system. documented in this encounter* Dereje Trejo MD - 10/12/2019 3:03 PM EST Lyn Harry 1960 [id number] HPI: Patient was here today to follow-up on her chronic medical problems. Hypertension, diabetes: Patient has been compliant with all the prescribed medications without any significant adverse effects and also has been compliant with diabetic diet. Does not do any regular aerobic exercise. Her latest hemoglobin A1c from June was at 6.2. Her blood pressure at home has been mostly in the range of 120 130/70 80 lately. Breast cancer: Patient has undergone a right breast lumpectomy followed by radiation treatment and now she is taking Arimidex as per her medical oncologist. Has been tolerating the medication withoutany significant adverse effects. She was advised by oncologist to have a repeat mammogram early next year and it is scheduled for December now. Patient Active Problem List Diagnosis Type 2 diabetes mellitus (HCC) Mixed hyperlipidemia GERD without esophagitis Seasonal allergies Vitamin D deficiency PCOS (polycystic ovarian syndrome) NAFL (nonalcoholic fatty liver) Invasive ductal carcinoma of breast, female, right (HCC) Essential hypertension Past Medical History: Diagnosis Date Breast cancer (HCC) 01/31/2019 Right-Invasive mammary carcinoma Diabetes mellitus (HCC) Elevated blood-pressure reading, without diagnosis of hypertension 01/02/2019 GERD (gastroesophageal reflux disease) Hyperlipidemia Hypertension Seasonal allergies Past Surgical History: Procedure Laterality Date APPENDECTOMY BREAST BIOPSY Right ultrasound BREAST LUMPECTOMY W/ SENTINEL NODE, NEEDLE LOC, POSS AX DIS Right 02/27/2019 Procedure: RIGHT BREAST LUMPECTOMY WITH SENTINEL NODE BIOPSY WITH NEEDLE LOCALIZATION AND POSSIBLE AXILLARY DISSECTION; Surgeon: Braden Gee MD; Location: Main OR; Service: General Surgery SECTION, CLASSIC 1996 COLONOSCOPY 05/19/2017 Normal....Dr. Blackmon D & C WITH [place] 1994 EXPLORATORY LAPAROTOMY for infertility MM NEEDLE LOCALIZATION RIGHT Right 02/27/2019 MM NEEDLE LOCALIZATION RIGHT 02/27/2019 MAMMOGRAPHY US BREAST BIOPSY RIGHT Right 01/31/2019 US BREAST BIOPSY RIGHT 01/31/2019, invasive mammary carcinoma US BREAST BIOPSY RIGHT Right 02/06/2019 US BREAST BIOPSY RIGHT Social History Socioeconomic History Marital status: Spouse name: Not on file Number of children: Not on file Years of education: Not on file Highest education level: Not on file Occupational History Not on file Social Needs Financial resource strain: Not on file Food insecurity: Worry: Not on file Inability: Not on file Transportation needs: Medical: Not on file Non-medical: Not on file Tobacco Use Smoking status: Never Smoker Smokeless tobacco: Never Used Substance and Sexual Activity Alcohol use: Not Currently Comment: SOCIALLY Drug use: No Sexual activity: Never Lifestyle Physical activity: Days per week: Not on file Minutes per session: Not on file Stress: Not on file Relationships Social connections: Talks on phone: Not on file Gets together: Not on file Attends adventism service: Not on file Active member of club or organization: Not on file Attends meetings of clubs or organizations: Not on file Relationship status: Not on file Other Topics Concern Not on file Social History Narrative Not on file Family History Problem Relation Age of Onset Heart attack Paternal Grandfather Cancer Paternal Grandmother Unknown Cancer Lung cancer Paternal Aunt Review of Systems Constitutional: Negative for chills, diaphoresis, fatigue, fever and unexpected weight change. Respiratory: Negative for cough, shortness of breath and wheezing. Cardiovascular: Negative for chest pain, palpitations and leg swelling. Gastrointestinal: Negative for abdominal pain, blood in stool, constipation, diarrhea, nausea and vomiting. Endocrine: Negative for cold intolerance, heat intolerance, polydipsia, polyphagia and polyuria. Neurological: Negative for dizziness, light-headedness, numbness and headaches. Psychiatric/Behavioral: Negative for dysphoric mood and sleep disturbance. The patient is not nervous/anxious. Physical Exam: Vitals: 10/12/19 1440 BP: 123/82 BP Location: Left arm Patient Position: Sitting BP Cuff Size: X-large Adult Pulse: 73 Resp: 16 Temp: 98.7 F (37.1 C) TempSrc: Oral SpO2: 95% Weight: 91.6 kg (202 lb) Height: 5' 5" Physical Exam Constitutional: She appears well-nourished. No distress. Neck: Carotid bruit is not present. Cardiovascular: Normal rate, regular rhythm, normal heart sounds and intact distal pulses. No murmur heard. Pulmonary/Chest: Effort normal and breath sounds normal. No respiratory distress. She has no wheezes. She has no rales. Abdominal: Soft. She exhibits no distension. There is no tenderness. Musculoskeletal: General: No edema. Assessment & Plan: 1. Type 2 diabetes mellitus without complication, without long-term current use of insulin ([facility]) Comprehensive Metabolic Panel Hemoglobin A1c Lipid Panel 2. Essential hypertension 3. Invasive ductal carcinoma of breast, female, right ([facility]) 4. Vitamin D deficiency Vitamin D, Total, 25-OH Hypertension: Seems to be under control. Continue same medication regimen. Diabetes: Good control. Continue same medication. Encouraged for compliance with diabetic diet, regular aerobic exercise and some weight loss. Will repeat hemoglobin A1c in 3 to 4 months. Breast cancer: Patient underwent a lumpectomy status post radiation treatment and now is on Arimidex treatment as per oncology. Advised to continue to follow- up with oncology, as recommended by them.She will also have a repeat follow-up mammogram in December. Also ordered a repeat vitamin D level, given patient's history of vitamin D deficiency. Return in about 4 months (around 02/10/2020), or if symptoms worsen or fail to improve. Patient education & instructions given for: Patient was advised to avoid smoking, alcohol. Patient was also counseled for fall precautions. Details of medical condition explained and patient/caregiver was warned about the adverse consequences of uncontrolled medical conditions. Also cautioned about possible common adverse-effects and drug interactions of prescribed/OTC medications and also OTC/herbal supplements. Patient was recommended to review the medication information pamphlets/package inserts for complete list of adverse effects/contraindications, drug interactions etc., before starting any new medication. Patient was advisedto watch for any adverse effects, and instructed to immediately discontinue the medication and callus or go to ER if experiencing any adverse affects from the medications. Advised not to drive/drinkalcohol/use heavy machinery when taking narcotic/other sedating medications. Counseling for diet and exercise provided. All the addressed problems were discussed with the patient and advice given to call with any concerns or return to the office or go to a nearby ER if the symptoms do not improve or worsen or new symptoms develop. If any referrals were placed or tests ordered at today's visit, the patient was instructed to call the office if they haven't heard anything about the scheduling of referral or tests, within 2 weeks of today's visit. Health maintenance/preventive screening reviewed / ordered: Offered age- appropriate preventive services and screening. Screening colonoscopy April 2017: Normal colonoscopy. Please note: Portions of this chart may have been created with [employer] voice recognition software. Occasional wrong-word or "sound-like" substitutions may have occurred due to inherent limitations of the voice recognition software. Please read the chart carefully and recognize, using context, where the substitutions have occurred. Dereje Trejo MD documented in this encounter* Shayna Alcazar CNP - 01/12/2020 11:15 AM EST PATIENT NAME: [facility] [facility] [address] [id number] : 1960 DATE OF VISIT: 01/12/2020 #: [id number] PROVIDER: Shayna Alcazar CNP Chief Complaint Patient presents with Cough x1 week Sore Throat Otalgia SUBJECTIVE 59 y.o. female presents Cough (x1 week); Sore Throat; and Otalgia Client with report of illness for over a week with fever, body aches for 3 days then she developed a cough, sore throat and ear pain. Cough This is a new problem. The current episode started in the past 7 days. The problem has been unchanged. The problem occurs hourly. The cough is productive of sputum. Associated symptoms include chills, ear congestion, ear pain, a fever, headaches, myalgias, nasal congestion, postnasal drip, a sore throat and sweats. Pertinent negatives include no chest pain, eye redness, rash, shortness of breath or wheezing. The symptoms are aggravated by lying down. Treatments tried: Dayquil, Nyquil. The treatment provided mild relief. Her past medical history is significant for bronchitis and environmental allergies. There is no history of asthma, bronchiectasis, COPD, emphysema or pneumonia. MEDICAL ISSUES Past Medical History: Diagnosis Date Breast cancer (HCC) 01/31/2019 Right-Invasive mammary carcinoma Diabetes mellitus (HCC) Elevated blood-pressure reading, without diagnosis of hypertension 01/02/2019 GERD (gastroesophageal reflux disease) Hyperlipidemia Hypertension Seasonal allergies Patient Active Problem List Diagnosis Type 2 diabetes mellitus (HCC) Mixed hyperlipidemia GERD without esophagitis Seasonal allergies Vitamin D deficiency PCOS (polycystic ovarian syndrome) NAFL (nonalcoholic fatty liver) Invasive ductal carcinoma of breast, female, right (HCC) Essential hypertension SOCIAL HISTORY Social History Socioeconomic History Marital status: Spouse name: Not on file Number of children: Not on file Years of education: Not on file Highest education level: Not on file Occupational History Not on file Social Needs Financial resource strain: Not on file Food insecurity Worry: Not on file Inability: Not on file Transportation needs Medical: Not on file Non-medical: Not on file Tobacco Use Smoking status: Never Smoker Smokeless tobacco: Never Used Substance and Sexual Activity Alcohol use: Not Currently Comment: SOCIALLY Drug use: No Sexual activity: Never Lifestyle Physical activity Days per week: Not on file Minutes per session: Not on file Stress: Not on file Relationships Social connections Talks on phone: Not on file Gets together: Not on file Attends adventism service: Not on file Active member of club or organization: Not on file Attends meetings of clubs or organizations: Not on file Relationship status: Not on file Other Topics Concern Not on file Social History Narrative Not on file FAMILY HISTORY Family History Problem Relation Age of Onset Heart attack Paternal Grandfather Cancer Paternal Grandmother Unknown Cancer Lung cancer Paternal Aunt REVIEW OF SYSTEMS Review of Systems Constitutional: Positive for activity change, appetite change, chills, diaphoresis, fatigue and fever. HENT: Positive for congestion, ear pain, postnasal drip, sinus pressure, sinus pain and sore throat. Eyes: Negative for discharge and redness. Respiratory: Positive for cough. Negative for chest tightness, shortness of breath and wheezing. Cardiovascular: Negative for chest pain. Gastrointestinal: Positive for diarrhea and nausea. Negative for vomiting. Genitourinary: Normal urination. Musculoskeletal: Positive for myalgias. Negative for arthralgias. Skin: Negative for rash. Allergic/Immunologic: Positive for environmental allergies. Neurological: Positive for headaches. MEDICATIONS PRIOR TO VISIT Current Outpatient Medications on File Prior to Visit Medication Sig Dispense Refill anastrozole (ARIMIDEX) 1 mg tablet Take 1 (one) tablet (1 mg total) by mouth daily . 30 tablet 5 atorvastatin (LIPITOR) 40 MG tablet Take 1 (one) tablet (40 mg total) by mouth daily . 30 tablet 5 calcium carbonate-vitamin D3 (CALCIUM 600 + D,3,) 600 mg(1,500mg) -400 unit per tablet Take 1 tablet by mouth 2 (two) times a day . fexofenadine (LAVERNE) 180 MG tablet Take 180 mg by mouth daily as needed . lisinopril (PRINIVIL,ZESTRIL) 5 MG tablet Take 1 (one) tablet (5 mg total) by mouth daily . 30 tablet 11 metFORMIN (Glucophage XR) 500 MG 24 hr tablet Take 1 (one) tablet (500 mg total) by mouth daily with breakfast . 30 tablet 5 omeprazole (PRILOSEC) 40 MG capsule Take 1 (one) capsule (40 mg total) by mouth daily . 30 capsule 11 No current facility-administered medications on file prior to visit. ALLERGIES/INTOLERANCES Allergies Allergen Reactions Penicillins Swelling Strong family history of penicillin allergy. OBJECTIVE BP (!) 160/85 Pulse 84 Temp 98.4 F (36.9 C) (Oral) Resp 16 Ht 5' 5" Wt 90.3 kg (199 lb) SpO2 97% BMI 33.12 kg/m Physical Exam Constitutional: She is oriented to person, place, and time. She appears well- developed and well-nourished. HENT: Head: Normocephalic and atraumatic. Right Ear: External ear and ear canal normal. Tympanic membrane is injected. Left Ear: External ear and ear canal normal. Tympanic membrane is injected. Nose: Mucosal edema present. Right sinus exhibits no maxillary sinus tenderness and no frontal sinus tenderness. Left sinus exhibits no maxillary sinus tenderness and no frontal sinus tenderness. Mouth/Throat: Uvula is midline and mucous membranes are normal. Posterior oropharyngeal erythema present. No oropharyngeal exudate or posterior oropharyngeal edema. Neck: Neck supple. Cardiovascular: Normal rate, regular rhythm and normal heart sounds. Pulmonary/Chest: Effort normal and breath sounds normal. No respiratory distress. She has no wheezes. She has no rales. Lymphadenopathy: She has cervical adenopathy. Neurological: She is alert and oriented to person, place, and time. Skin: Skin is warm and dry. Psychiatric: She has a normal mood and affect. Nursing note and vitals reviewed. PROCEDURE Procedures Results No results found for this or any previous visit (from the past 168 hour(s)). ASSESSMENT/PLAN (expressed as patient instructions): 1. Bilateral otitis media, unspecified otitis media type azithromycin (Zithromax Z-Davin) 250 MG tablet fluticasone propionate (FLONASE) 50 mcg/actuation nasal spray 2. Upper respiratory tract infection, unspecified type benzonatate (Tessalon Perles) 100 MG capsule predniSONE (DELTASONE) 20 MG tablet 3. Flu-like symptoms 4. Elevated blood pressure reading in office with diagnosis of hypertension No follow-ups on file. ADDITIONAL CLINICAL COMMENTS Client is non-toxic appearing in NAD. She is allergic to PCN with high level of severity. She is not familiar with cephalosporins. I am treating with Zithromax as client has taken successfully in thepast. ORDERS PLACED THIS VISIT No orders of the defined types were placed in this encounter. MEDICATION LIST AT END OF VISIT Current Outpatient Medications Medication Sig Dispense Refill anastrozole (ARIMIDEX) 1 mg tablet Take 1 (one) tablet (1 mg total) by mouth daily . 30 tablet 5 atorvastatin (LIPITOR) 40 MG tablet Take 1 (one) tablet (40 mg total) by mouth daily . 30 tablet 5 calcium carbonate-vitamin D3 (CALCIUM 600 + D,3,) 600 mg(1,500mg) -400 unit per tablet Take 1 tablet by mouth 2 (two) times a day . fexofenadine (LAVERNE) 180 MG tablet Take 180 mg by mouth daily as needed . lisinopril (PRINIVIL,ZESTRIL) 5 MG tablet Take 1 (one) tablet (5 mg total) by mouth daily . 30 tablet 11 metFORMIN (Glucophage XR) 500 MG 24 hr tablet Take 1 (one) tablet (500 mg total) by mouth daily with breakfast . 30 tablet 5 omeprazole (PRILOSEC) 40 MG capsule Take 1 (one) capsule (40 mg total) by mouth daily . 30 capsule 11 azithromycin (Zithromax Z-Davin) 250 MG tablet Take 2 tablets on day one and 1 tablet on days 2 through 5. . 6 tablet 0 benzonatate (Tessalon Perles) 100 MG capsule Take one or two capsules every 8 hours as needed for cough. Do not chew. . 60 capsule 1 fluticasone propionate (FLONASE) 50 mcg/actuation nasal spray Instill 2 (two) sprays into each nostril daily . 16 g 0 predniSONE (DELTASONE) 20 MG tablet Take 2 tablets daily for 5 days. . 10 tablet 0 No current facility-administered medications for this visit. documented in this encounter* Braden Gee MD - 01/25/2020 2:00 PM EST [facility] PATIENT: Lyn Harry DATE / TIME: 01/25/20 2:01 PM POS: Office AGE: 59 y.o. : 1960 RACE: [1] SEX: female PCP: Dereje Trejo MD REFERRAL: No ref. provider found TOS: SUBJECTIVE: 58-year-old female female past medical history of diabetes GERD hyperlipidemia and seasonal allergies referred for abnormality seen on a recent screening mammography. Underwent a right breast ultrasound identified to have a 0.7 cm x 0.5 cm suspicious nodule. Now status post right breastultrasound-guided biopsy with confirmed invasive ductal carcinoma ER AL positive HER-2 negative, clinical stage T1 cNX MX. Now status post right needle localized lumpectomy and sentinel lymph node biopsy with a pathologic stage pT1c pN0(sn). Overall doing well since surgery. Has completed her course of radiation currently taking anastrozole without significant side effect. OBJECTIVE: BP 122/77 Pulse 99 Temp 98.5 F (36.9 C) Resp 16 Ht 5' 4.5" Wt 91.2 kg (201 lb) BMI 33.97 kg/m PE Bilateral axilla without any palpable adenopathy No cervical lymphadenopathy present Right breast incision is intact breast incision is well-appearing. Minor dimpling of the right breast skin compared to the left secondary to radiation. Scar tissue palpable underneath the right scar no significant mass present. Right axillary incision is intact. No palpable adenopathy Left breast no palpable masses in all 4 quadrants. Nipple appears normal with no retraction. No fluid expressible. Left axilla without any palpable lymph nodes. Lab Results Component Value Date WBC 5.22 09/25/2019 RBC 4.10 09/25/2019 HGB 13.0 09/25/2019 HCT 37.9 09/25/2019 PLT 222 09/25/2019 No results found for: AMYLASE No results found for: LIPASE IMAGING: Surveillance mammography 01/22/2020 EXAMINATION: MM DIAGNOSTIC GEOVANNY BILATERAL INDICATION: ORDERING SYSTEM PROVIDED HISTORY: h/o right breast cancer with lumpectomy. 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 Computer-aided detection was utilized in the interpretation of this exam. FINDINGS: MAMMOGRAPHY: The breast tissue density is heterogenously dense. There are postsurgical changes of the right breast. No suspicious masses, asymmetries or calcifications identified within the right or left breast. There are benign calcifications within the left breast. IMPRESSION: No mammographic or sonographic evidence of malignancy. BIRADS: BIRADS - CATEGORY 2 Benign, no evidence of malignancy. Normal interval follow-up is recommended in 12 months. OVERALL ASSESSMENT - BENIGN PATHOLOGY: Surgical Pathology Report Case: [id number] Authorizing Provider: Braden Gee MD Collected: 02/27/2019 12:38 PM Ordering Location: [facility] Periop Received: 02/27/2019 12:55 PM Pathologist: Kirby Olvera IV, MD Specimens: A) - Lymph Node, [place], Axillary, Right, [place] Lymph Node A B) - Lymph Node, [place], Axillary, Right, [place] Lymph Node B C) - Breast, Right, Right Breast Lumpectomy D) - Lymph Node, [place], Axillary, Right, Additional [place] Lymph Node Final Diagnosis Histologic type: Invasive ductal carcinoma, not otherwise specified Histologic ([place]) grade: Glandular/Tubular differentiation: Score 3 Nuclear pleomorphism: Score 1 Mitotic rate: Score 1 Overall grade: Grade 1 (scores of 3, 4, or 5) Margins: Invasive carcinoma margins: Uninvolved by invasive carcinoma Distance from closest margin: Inferior margin, 2 mm DCIS margins: Uninvolved by DCIS Distance from closest margin: Inferior margin, 6 mm Pathologic Stage (AJCC 8th Ed.): pT1c pN0(sn) Procedure: Partial mastectomy Specimen laterality: Right Tumor site: 12 o'clock Tumor size: 1.9 cm Tumor focality: Single focus of invasive carcinoma Ductal carcinoma in-situ (DCIS): Present Tumor extension: Skin: Skin is not present Nipple: Nipple is not present Skeletal muscle: No skeletal muscle is present Regional lymph nodes: Uninvolved by tumor cells Number of lymph nodes examined: 4 Number of sentinel lymph nodes examined: 4 Treatment effect: No known presurgical therapy Lymphovascular invasion: Not identified Dermal lymphovascular invasion: No skin present Additional pathologic findings: None Ancillary studies: (performed on prior biopsy [id number]) ER: Positive ( 100%, 3+ intensity, resulted by image analysis) AL: Positive ( 100%, 3+ intensity, resulted by image analysis) HER2: Negative (0, resulted by image analysis) A. Lymph node(s), Axillary, [place], Right, lymphadenectomy: One lymph node, negative for malignancy (0/1). B. Lymph node(s), Axillary, [place], Right, lymphadenectomy: One lymph node, negative for malignancy (0/1). C. Breast, Right, lumpectomy: 1. Invasive ductal carcinoma. See synoptic report. 2. The margins of excision are uninvolved by tumor. D. Lymph node(s), Axillary, [place], Right, lymphadenectomy: Two lymph nodes, negative for malignancy (0/2). ASSESSMENT: 58-year-old female female past medical history of diabetes GERD hyperlipidemia and seasonal allergies referred for abnormality seen on a recent screening mammography. Underwent a right breast ultrasound identified to have a 0.7 cm x 0.5 cm suspicious nodule. Now status post right breastultrasound-guided biopsy with confirmed invasive ductal carcinoma ER AL positive HER-2 negative, clinical stage T1 cNX MX. Now status post right needle localized lumpectomy and sentinel lymph node biopsy with a pathologic stage pT1c pN0(sn). Status post completion full breast and axillary radiation. PLAN: Patient Active Problem List Diagnosis Type 2 diabetes mellitus (HCC) Mixed hyperlipidemia GERD without esophagitis Seasonal allergies Vitamin D deficiency PCOS (polycystic ovarian syndrome) NAFL (nonalcoholic fatty liver) Invasive ductal carcinoma of breast, female, right (HCC) Essential hypertension History of right breast invasive ductal carcinoma, pT1c pN0(sn). Status post lumpectomy and sentinel lymph node biopsy (February 2019) and completion of her radiation. Tolerating anastrozole well. No evidence of recurrence on examination. Will have the patient return to my office in 6 months for continued surveillance. documented in this encounter* Marion Garrett MD - 01/28/2020 2:00 PM EST [facility] Note Date of service: 01/28/2020 Referring Physician: Braden Gee MD PCP: Dereje Trejo MD Diagnosis/chief Complaint: Right breast invasive ductal carcinoma, ER/AL +, HER2/marily negative AJCC stage: pT1c pN0 Mx, Stage IA Date of diagnosis: 01/31/19 Goal of treatment: curative Treatment delivered: Right breast lumpectomy with SLND Reason for visit: R breast invasive ductal carcinoma Interval History: Ms. Harry is here to follow-up while on adjuvant endocrine therapy with anastrozole. She started this in May 2019. She continues to tolerate it well. She denies any hot flashes or arthralgias. She says she has only occasional hot flashes but these are manageable. She denies any bony aches or pains.The surgery site has healed well overall. She says she notices some twinges of pain in the right axilla but this is not bad. No new medications. She denies any other new pain, fevers, chills, nausea,vomiting. She has been suffering from low libido though which does bother her some. Her weight fluctuates 5 pounds up and down but is not consistently going up. HPI: Ms. Harry is a 58 year old lady with a history of diabetes, GERD, HLD, PCOS, and seasonal allergies who is being seen by oncology for a new diagnosis of stage IA right breast invasive ductal carcinoma, ER/AL +, HER2/marily negative. The patient states that she was not having any issues prior to the diagnosis. This was found on a routine screening mammogram. She says she had a mammogram last year thatwas normal. She had a mammogram at the end of December which noted a right breast lesion that was concerning for malignancy. Given this they proceeded with a biopsy which confirmed right breast invasive ductal carcinoma, ER AL positive, HER-2/marily negative. She was then referred to see Dr. Gee. They discussed surgical options and the patient elected to proceed with a right breast lumpectomy andsentinel lymph node dissection. She tolerated surgery well and is healing well from her surgery. This was performed in early February. Her final pathology shows a tumor measuring up to 1.9 cm. The sentinel lymph node were negative for malignancy. It was overall grade 1. Her final pathology shows a pT1c pN0 Mx stage I a invasive ductal carcinoma of the right breast, ER/AL positive, HER-2/marily negative. She is healing well from the surgery and she is here today to discuss next steps in her therapy. She denies any family history of breast cancer. No family history of ovarian cancer or endometrial cancer. Reproductive risk factors: Age of menarche at 17 years Age of menopause at 56 years. 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 control pills: yes. Hormone replacement therapy: yes. Caffeine intake yes History of prior breast biopsy no History of prior breast cancer no Family History : Breast cancer no Ovarian Cancer no Endometrial cancer no Family History of breast disease no ROS: General- Denies weakness, fever/chills, weight gain/loss, fatigue, change in appetite, or cold and flu symptoms HEENT: Denies hearing changes or tinnitus, vision changes, sinus pain/tenderness, nasal congestion,epistaxis, gingival bleed, sore throat, or mouth sores Cardiac; Denies CP, palpitations, dizziness, claudication, or QUINN Pulmonary- Denies SOB, wheezing, PND, or cough GI- Denies nausea and vomiting, dysphagia, heartburn, abdominal pain, diarrhea or constipation - Denies urgency, frequency, hematuria or incontinence, complains of burning when urinating Endo- Denies excessive sweating, polyuria, or polydypsia MS - Denies joint stiffness swelling, or decreased ROM, Neuro- Denies loss of consciousness, numbness or tingling Skin- Denies jaundice, rashes, or open lesions Heme- Denies night sweats, signs and symptoms of infection, easily bleeding or bruising Psych- Denies signs and symptoms of depression or suicidal thoughts Past Medical History: Diagnosis Date Breast cancer (HCC) 01/31/2019 Right-Invasive mammary carcinoma Diabetes mellitus (HCC) Elevated blood-pressure reading, without diagnosis of hypertension 01/02/2019 GERD (gastroesophageal reflux disease) Hyperlipidemia Hypertension Seasonal allergies Past Surgical History: Procedure Laterality Date APPENDECTOMY BREAST BIOPSY Right ultrasound BREAST LUMPECTOMY Right 02/27/2019 BREAST LUMPECTOMY W/ SENTINEL NODE, NEEDLE LOC, POSS AX DIS Right 02/27/2019 Procedure: RIGHT BREAST LUMPECTOMY WITH SENTINEL NODE BIOPSY WITH NEEDLE LOCALIZATION AND POSSIBLE AXILLARY DISSECTION; Surgeon: Braden Gee MD; Location: [facility]; Service: General Surgery SECTION, CLASSIC 1996 COLONOSCOPY 05/19/2017 Normal....Dr. Blackmon D & C WITH LEERonan 1994 EXPLORATORY LAPAROTOMY for infertility MM NEEDLE LOCALIZATION RIGHT Right 02/27/2019 MM NEEDLE LOCALIZATION RIGHT 02/27/2019 MH MAMMOGRAPHY RADIATION Right 04/2019 US BREAST BIOPSY RIGHT Right 01/31/2019 US BREAST BIOPSY RIGHT 01/31/2019, invasive mammary carcinoma US BREAST BIOPSY RIGHT Right 02/06/2019 US BREAST BIOPSY RIGHT Family History Problem Relation Age of Onset Heart attack Paternal Grandfather Cancer Paternal Grandmother Unknown Cancer Lung cancer Paternal Aunt Breast cancer Neg Hx Social History Socioeconomic History Marital status: Spouse name: Not on file Number of children: Not on file Years of education: Not on file Highest education level: Not on file Occupational History Not on file Social Needs Financial resource strain: Not on file Food insecurity Worry: Not on file Inability: Not on file Transportation needs Medical: Not on file Non-medical: Not on file Tobacco Use Smoking status: Never Smoker Smokeless tobacco: Never Used Substance and Sexual Activity Alcohol use: Not Currently Comment: SOCIALLY Drug use: No Sexual activity: Never Lifestyle Physical activity Days per week: Not on file Minutes per session: Not on file Stress: Not on file Relationships Social connections Talks on phone: Not on file Gets together: Not on file Attends adventism service: Not on file Active member of club or organization: Not on file Attends meetings of clubs or organizations: Not on file Relationship status: Not on file Other Topics Concern Not on file Social History Narrative Not on file Allergies Allergen Reactions Penicillins Swelling Strong family history of penicillin allergy. Current Outpatient Medications: anastrozole (ARIMIDEX) 1 mg tablet, Take 1 (one) tablet (1 mg total) by mouth daily ., Disp: 30 tablet, Rfl: 5 atorvastatin (LIPITOR) 40 MG tablet, Take 1 (one) tablet (40 mg total) by mouth daily ., Disp: 30 tablet, Rfl: 5 azithromycin (Zithromax Z-Davin) 250 MG tablet, Take 2 tablets on day one and 1 tablet on days 2 through 5. ., Disp: 6 tablet, Rfl: 0 benzonatate (Tessalon Perles) 100 MG capsule, Take one or two capsules every 8 hours as needed for cough. Do not chew. ., Disp: 60 capsule, Rfl: 1 calcium carbonate-vitamin D3 (CALCIUM 600 + D,3,) 600 mg(1,500mg) -400 unit per tablet, Take 1 tablet by mouth 2 (two) times a day ., Disp: , Rfl: fexofenadine (LAVERNE) 180 MG tablet, Take 180 mg by mouth daily as needed ., Disp: , Rfl: fluticasone propionate (FLONASE) 50 mcg/actuation nasal spray, Instill 2 (two) sprays into each nostril daily ., Disp: 16 g, Rfl: 0 lisinopril (PRINIVIL,ZESTRIL) 5 MG tablet, Take 1 (one) tablet (5 mg total) by mouth daily ., Disp:30 tablet, Rfl: 11 metFORMIN (Glucophage XR) 500 MG 24 hr tablet, Take 1 (one) tablet (500 mg total) by mouth daily with breakfast ., Disp: 30 tablet, Rfl: 5 omeprazole (PRILOSEC) 40 MG capsule, Take 1 (one) capsule (40 mg total) by mouth daily ., Disp: 30 capsule, Rfl: 11 predniSONE (DELTASONE) 20 MG tablet, Take 2 tablets daily for 5 days. ., Disp: 10 tablet, Rfl: 0 Physical exam: ECOG PS: 0 PACU Vitals 01/28/20 1405 BP: 129/83 Pulse: 92 Temp: 98.8 F (37.1 C) SpO2: 95% General: well-appearing, no acute distress HEENT: NCAT, sclera anicteric, moist mm, o/p clear , no oral mucosal lesions Neck: supple, no supraclavicular adenopathy Lymph: no cervical, supraclavicular, or axillary LAD Chest: CTAB, no w/r/r, no respiratory distress CV: RRR, no S3 S4 gallops or murmurs Abd: soft, NT/ND, no HSM or masses, + BS Extrem: wwp, no c/c/e Skin: no rashes or lesions Neuro: alert, oriented, CN intact, speech fluent, strength full and symmetric Breast: Right breast with 3 cm horizontal incision that is located about 2 cm above the nipple, well-healed, no erythema or drainage. Mild erythema from radiation. No masses palpated in right breast.No axillary adenopathy appreciated. Left breast with no masses palpated or skin changes or nipple di scharge. No axillary adenopathy. Psych: Mood normal, Affect normal Labs: Lab Results Component Value Date WBC 5.22 09/25/2019 HGB 13.0 09/25/2019 HCT 37.9 09/25/2019 MCV 92.4 09/25/2019 PLT 222 09/25/2019 RBC 4.10 09/25/2019 Lab Results Component Value Date GLUCOSE 119 (H) 09/25/2019 CALCIUM 9.9 09/25/2019 NA 140 09/25/2019 K 3.8 09/25/2019 CL 107 09/25/2019 BUN 12 09/25/2019 CREATININE 1.02 09/25/2019 Lab Results Component Value Date ALT 36 09/25/2019 AST 23 09/25/2019 ALKPHOS 67 09/25/2019 BILITOT 0.8 09/25/2019 Imaging: Mammogram 01/22/20: No mammographic or sonographic evidence of malignancy. BIRADS - CATEGORY 2 Benign, no evidence of malignancy. Normal interval follow-up is recommended in 12 months. DEXA 08/17/19: Normal Mammogram 01/24/19: 1. Suspicious mass within the right breast at 12:00 5 cm from the nipple. 2. Benign complicated appearing cyst within the left breast at 10:00 4 cm from the nipple. OVERALL BIRADS: 4C-HIGH SUSPICION FOR MALIGNANCY-BIOPSY IS RECOMMENDED. RECOMMENDATION: 1: Ultrasound-guided biopsy of the right breast is recommended. Pathology: Right breast Lumpectomy 02/27/19: Histologic type: Invasive ductal carcinoma, not otherwise specified Histologic (Umesh) grade: Glandular/Tubular differentiation: Score 3 Nuclear pleomorphism: Score 1 Mitotic rate: Score 1 Overall grade: Grade 1 (scores of 3, 4, or 5) Margins: Invasive carcinoma margins: Uninvolved by invasive carcinoma Distance from closest margin: Inferior margin, 2 mm DCIS margins: Uninvolved by DCIS Distance from closest margin: Inferior margin, 6 mm Pathologic Stage (AJCC 8th Ed.): pT1c pN0(sn) Procedure: Partial mastectomy Specimen laterality: Right Tumor site: 12 o'clock Tumor size: 1.9 cm Tumor focality: Single focus of invasive carcinoma Ductal carcinoma in-situ (DCIS): Present Tumor extension: Skin: Skin is not present Nipple: Nipple is not present Skeletal muscle: No skeletal muscle is present Regional lymph nodes: Uninvolved by tumor cells Number of lymph nodes examined: 4 Number of sentinel lymph nodes examined: 4 Treatment effect: No known presurgical therapy Lymphovascular invasion: Not identified Dermal lymphovascular invasion: No skin present Additional pathologic findings: None Ancillary studies: (performed on prior biopsy [id number]) ER: Positive ( 100%, 3+ intensity, resulted by image analysis) AL: Positive ( 100%, 3+ intensity, resulted by image analysis) HER2: Negative (0, resulted by image analysis) A. Lymph node(s), Axillary, [place], Right, lymphadenectomy: One lymph node, negative for malignancy (0/1). B. Lymph node(s), Axillary, [place], Right, lymphadenectomy: One lymph node, negative for malignancy (0/1). C. Breast, Right, lumpectomy: 1. Invasive ductal carcinoma. See synoptic report. 2. The margins of excision are uninvolved by tumor. D. Lymph node(s), Axillary, [place], Right, lymphadenectomy: Two lymph nodes, negative for malignancy (0/2). Assessment / plan: Ms. Harry is a 58 year old lady with a history of diabetes, GERD, HLD, PCOS, and seasonal allergies who is being seen by oncology for a new diagnosis of stage IA right breast invasive ductal carcinoma, ER/AL +, HER2/marily negative. Right breast invasive ductal carcinoma, ER/AL positive, HER-2/marily negative, pT1c pN0 Mx, Stage IA: As above, the patient is being seen for new diagnosis of right breast invasive ductal carcinoma, ERPR positive, HER-2/marily negative. This was found on a routine screening mammogram and she did not have any symptoms prior to this. She has been seen by Dr. Gee and had a right breast lumpectomy on 02/27/2019. The final pathology is as above overall stage I a, hormone positive, HER-2/marily negative. -I discussed the pathology results with the patient. We proceeded with Oncotype DX testing to determine if she would benefit from adjuvant chemotherapy in addition to adjuvant endocrine therapy. -Her Oncotype DX testing came back with a score of 17 which is low. Based on this her absolute benefit of adjuvant chemotherapy would be less than 1%. Also, her risk of recurrence at 9 years with either an AI or tamoxifen is 5%. -Given her low Oncotype DX score, I would not recommend adjuvant chemotherapy in addition to adjuvant endocrine therapy. -She was referred to radiation oncology to complete adjuvant radiation. She had this from 05/07/2019to 06/05/2019. She tolerated it well overall with minimal side effects. -The patient would benefit from adjuvant endocrine therapy given her hormone positive malignancy. She is postmenopausal, so I recommended therapy with anastrozole 1 mg daily. We discussed the side effects including hot flashes as well as bony aches and bone density loss. She was provided with the patient handout information on the medication today. -She has been tolerating adjuvant endocrine therapy very well. She started in May 2019. We will plan to continue this and plan for at least 5 years (through 05/2024). -She did have a DEXA scan for baseline testing and this was normal. I will have her continue supplemental calcium 1200 mg daily and vitamin D 800-1000 IU daily. -We will plan to get repeat DEXA scan in 07/2021. -She had her screening mammogram on 01/22/2020. This was normal and she is recommended to have a follow-up in 12 months, due December 2020. Low libido: Likely secondary to menopause as well as endocrine therapy. We discussed options such as lubricant which she is using. Will monitor. Elevated calcium: Resolved. Her labs from last fall showed a normal calcium. Will monitor. Diabetes: Per patient history. She will continue to follow with her PCP for this. Last A1c was 6.2. Hypertension: Per patient history. She will continue follow-up with her PCP for this. RTC 4 months with mammogram prior. Education Provided Education/Instructions given to: (x) Patient (_) Spouse (_) Parent (_) Other Barriers to Learning: (x) None (_) Yes (identify):_ Content: (x) Refer to note above (_)Other (identify):_ Evaluation/Outcome: (x) Verbalized understanding (_) Demonstrated understanding NCCN Guidelines Consulted: (x ) Yes ( ) No Recommendations Concordant with Guidelines: ( x ) Yes ( ) No Reason for Non-Concordance: n/a documented in this encounter* Marion Garrett MD - 01/28/2020 2:00 PM EST [facility] Note Date of service: 01/28/2020 Referring Physician: Braden Gee MD PCP: Dereje Trejo MD Diagnosis/chief Complaint: Right breast invasive ductal carcinoma, ER/AL +, HER2/marily negative AJCC stage: pT1c pN0 Mx, Stage IA Date of diagnosis: 01/31/19 Goal of treatment: curative Treatment delivered: Right breast lumpectomy with SLND Reason for visit: R breast invasive ductal carcinoma Interval History: Ms. Harry is here to follow-up while on adjuvant endocrine therapy with anastrozole. She started this in May 2019. She continues to tolerate it well. She denies any hot flashes or arthralgias. She says she has only occasional hot flashes but these are manageable. She denies any bony aches or pains.The surgery site has healed well overall. She says she notices some twinges of pain in the right axilla but this is not bad. No new medications. She denies any other new pain, fevers, chills, nausea,vomiting. She has been suffering from low libido though which does bother her some. Her weight fluctuates 5 pounds up and down but is not consistently going up. HPI: Ms. Harry is a 58 year old lady with a history of diabetes, GERD, HLD, PCOS, and seasonal allergies who is being seen by oncology for a new diagnosis of stage IA right breast invasive ductal carcinoma, ER/AL +, HER2/marily negative. The patient states that she was not having any issues prior to the diagnosis. This was found on a routine screening mammogram. She says she had a mammogram last year thatwas normal. She had a mammogram at the end of December which noted a right breast lesion that was concerning for malignancy. Given this they proceeded with a biopsy which confirmed right breast invasive ductal carcinoma, ER AL positive, HER-2/marily negative. She was then referred to see Dr. Gee. They discussed surgical options and the patient elected to proceed with a right breast lumpectomy andsentinel lymph node dissection. She tolerated surgery well and is healing well from her surgery. This was performed in early February. Her final pathology shows a tumor measuring up to 1.9 cm. The sentinel lymph node were negative for malignancy. It was overall grade 1. Her final pathology shows a pT1c pN0 Mx stage I a invasive ductal carcinoma of the right breast, ER/AL positive, HER-2/marily negative. She is healing well from the surgery and she is here today to discuss next steps in her therapy. She denies any family history of breast cancer. No family history of ovarian cancer or endometrial cancer. Reproductive risk factors: Age of menarche at 17 years Age of menopause at 56 years. 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 control pills: yes. Hormone replacement therapy: yes. Caffeine intake yes History of prior breast biopsy no History of prior breast cancer no Family History : Breast cancer no Ovarian Cancer no Endometrial cancer no Family History of breast disease no ROS: General- Denies weakness, fever/chills, weight gain/loss, fatigue, change in appetite, or cold and flu symptoms HEENT: Denies hearing changes or tinnitus, vision changes, sinus pain/tenderness, nasal congestion,epistaxis, gingival bleed, sore throat, or mouth sores Cardiac; Denies CP, palpitations, dizziness, claudication, or QUINN Pulmonary- Denies SOB, wheezing, PND, or cough GI- Denies nausea and vomiting, dysphagia, heartburn, abdominal pain, diarrhea or constipation - Denies urgency, frequency, hematuria or incontinence, complains of burning when urinating Endo- Denies excessive sweating, polyuria, or polydypsia MS - Denies joint stiffness swelling, or decreased ROM, Neuro- Denies loss of consciousness, numbness or tingling Skin- Denies jaundice, rashes, or open lesions Heme- Denies night sweats, signs and symptoms of infection, easily bleeding or bruising Psych- Denies signs and symptoms of depression or suicidal thoughts Past Medical History: Diagnosis Date Breast cancer (HCC) 01/31/2019 Right-Invasive mammary carcinoma Diabetes mellitus (HCC) Elevated blood-pressure reading, without diagnosis of hypertension 01/02/2019 GERD (gastroesophageal reflux disease) Hyperlipidemia Hypertension Seasonal allergies Past Surgical History: Procedure Laterality Date APPENDECTOMY BREAST BIOPSY Right ultrasound BREAST LUMPECTOMY Right 02/27/2019 BREAST LUMPECTOMY W/ SENTINEL NODE, NEEDLE LOC, POSS AX DIS Right 02/27/2019 Procedure: RIGHT BREAST LUMPECTOMY WITH SENTINEL NODE BIOPSY WITH NEEDLE LOCALIZATION AND POSSIBLE AXILLARY DISSECTION; Surgeon: Braden Gee MD; Location: [facility] OR; Service: General Surgery SECTION, CLASSIC 1996 COLONOSCOPY 05/19/2017 Normal....Dr. Blackmon D & C WITH LEERonan 1994 EXPLORATORY LAPAROTOMY for infertility MM NEEDLE LOCALIZATION RIGHT Right 02/27/2019 MM NEEDLE LOCALIZATION RIGHT 02/27/2019 MAMMOGRAPHY RADIATION Right 04/2019 US BREAST BIOPSY RIGHT Right 01/31/2019 US BREAST BIOPSY RIGHT 01/31/2019, invasive mammary carcinoma US BREAST BIOPSY RIGHT Right 02/06/2019 US BREAST BIOPSY RIGHT Family History Problem Relation Age of Onset Heart attack Paternal Grandfather Cancer Paternal Grandmother Unknown Cancer Lung cancer Paternal Aunt Breast cancer Neg Hx Social History Socioeconomic History Marital status: Spouse name: Not on file Number of children: Not on file Years of education: Not on file Highest education level: Not on file Occupational History Not on file Social Needs Financial resource strain: Not on file Food insecurity Worry: Not on file Inability: Not on file Transportation needs Medical: Not on file Non-medical: Not on file Tobacco Use Smoking status: Never Smoker Smokeless tobacco: Never Used Substance and Sexual Activity Alcohol use: Not Currently Comment: SOCIALLY Drug use: No Sexual activity: Never Lifestyle Physical activity Days per week: Not on file Minutes per session: Not on file Stress: Not on file Relationships Social connections Talks on phone: Not on file Gets together: Not on file Attends adventism service: Not on file Active member of club or organization: Not on file Attends meetings of clubs or organizations: Not on file Relationship status: Not on file Other Topics Concern Not on file Social History Narrative Not on file Allergies Allergen Reactions Penicillins Swelling Strong family history of penicillin allergy. Current Outpatient Medications: anastrozole (ARIMIDEX) 1 mg tablet, Take 1 (one) tablet (1 mg total) by mouth daily ., Disp: 30 tablet, Rfl: 5 atorvastatin (LIPITOR) 40 MG tablet, Take 1 (one) tablet (40 mg total) by mouth daily ., Disp: 30 tablet, Rfl: 5 azithromycin (Zithromax Z-Davin) 250 MG tablet, Take 2 tablets on day one and 1 tablet on days 2 through 5. ., Disp: 6 tablet, Rfl: 0 benzonatate (Tessalon Perles) 100 MG capsule, Take one or two capsules every 8 hours as needed for cough. Do not chew. ., Disp: 60 capsule, Rfl: 1 calcium carbonate-vitamin D3 (CALCIUM 600 + D,3,) 600 mg(1,500mg) -400 unit per tablet, Take 1 tablet by mouth 2 (two) times a day ., Disp: , Rfl: fexofenadine (LAVERNE) 180 MG tablet, Take 180 mg by mouth daily as needed ., Disp: , Rfl: fluticasone propionate (FLONASE) 50 mcg/actuation nasal spray, Instill 2 (two) sprays into each nostril daily ., Disp: 16 g, Rfl: 0 lisinopril (PRINIVIL,ZESTRIL) 5 MG tablet, Take 1 (one) tablet (5 mg total) by mouth daily ., Disp:30 tablet, Rfl: 11 metFORMIN (Glucophage XR) 500 MG 24 hr tablet, Take 1 (one) tablet (500 mg total) by mouth daily with breakfast ., Disp: 30 tablet, Rfl: 5 omeprazole (PRILOSEC) 40 MG capsule, Take 1 (one) capsule (40 mg total) by mouth daily ., Disp: 30 capsule, Rfl: 11 predniSONE (DELTASONE) 20 MG tablet, Take 2 tablets daily for 5 days. ., Disp: 10 tablet, Rfl: 0 Physical exam: ECOG PS: 0 PACU Vitals 01/28/20 1405 BP: 129/83 Pulse: 92 Temp: 98.8 F (37.1 C) SpO2: 95% General: well-appearing, no acute distress HEENT: NCAT, sclera anicteric, moist mm, o/p clear , no oral mucosal lesions Neck: supple, no supraclavicular adenopathy Lymph: no cervical, supraclavicular, or axillary LAD Chest: CTAB, no w/r/r, no respiratory distress CV: RRR, no S3 S4 gallops or murmurs Abd: soft, NT/ND, no HSM or masses, + BS Extrem: wwp, no c/c/e Skin: no rashes or lesions Neuro: alert, oriented, CN intact, speech fluent, strength full and symmetric Breast: Right breast with 3 cm horizontal incision that is located about 2 cm above the nipple, well-healed, no erythema or drainage. Mild erythema from radiation. No masses palpated in right breast.No axillary adenopathy appreciated. Left breast with no masses palpated or skin changes or nipple di scharge. No axillary adenopathy. Psych: Mood normal, Affect normal Labs: Lab Results Component Value Date WBC 5.22 09/25/2019 HGB 13.0 09/25/2019 HCT 37.9 09/25/2019 MCV 92.4 09/25/2019 PLT 222 09/25/2019 RBC 4.10 09/25/2019 Lab Results Component Value Date GLUCOSE 119 (H) 09/25/2019 CALCIUM 9.9 09/25/2019 NA 140 09/25/2019 K 3.8 09/25/2019 CL 107 09/25/2019 BUN 12 09/25/2019 CREATININE 1.02 09/25/2019 Lab Results Component Value Date ALT 36 09/25/2019 AST 23 09/25/2019 ALKPHOS 67 09/25/2019 BILITOT 0.8 09/25/2019 Imaging: Mammogram 01/22/20: No mammographic or sonographic evidence of malignancy. BIRADS - CATEGORY 2 Benign, no evidence of malignancy. Normal interval follow-up is recommended in 12 months. DEXA 08/17/19: Normal Mammogram 01/24/19: 1. Suspicious mass within the right breast at 12:00 5 cm from the nipple. 2. Benign complicated appearing cyst within the left breast at 10:00 4 cm from the nipple. OVERALL BIRADS: 4C-HIGH SUSPICION FOR MALIGNANCY-BIOPSY IS RECOMMENDED. RECOMMENDATION: 1: Ultrasound-guided biopsy of the right breast is recommended. Pathology: Right breast Lumpectomy 02/27/19: Histologic type: Invasive ductal carcinoma, not otherwise specified Histologic (Umesh) grade: Glandular/Tubular differentiation: Score 3 Nuclear pleomorphism: Score 1 Mitotic rate: Score 1 Overall grade: Grade 1 (scores of 3, 4, or 5) Margins: Invasive carcinoma margins: Uninvolved by invasive carcinoma Distance from closest margin: Inferior margin, 2 mm DCIS margins: Uninvolved by DCIS Distance from closest margin: Inferior margin, 6 mm Pathologic Stage (AJCC 8th Ed.): pT1c pN0(sn) Procedure: Partial mastectomy Specimen laterality: Right Tumor site: 12 o'clock Tumor size: 1.9 cm Tumor focality: Single focus of invasive carcinoma Ductal carcinoma in-situ (DCIS): Present Tumor extension: Skin: Skin is not present Nipple: Nipple is not present Skeletal muscle: No skeletal muscle is present Regional lymph nodes: Uninvolved by tumor cells Number of lymph nodes examined: 4 Number of sentinel lymph nodes examined: 4 Treatment effect: No known presurgical therapy Lymphovascular invasion: Not identified Dermal lymphovascular invasion: No skin present Additional pathologic findings: None Ancillary studies: (performed on prior biopsy [id number]) ER: Positive ( 100%, 3+ intensity, resulted by image analysis) AL: Positive ( 100%, 3+ intensity, resulted by image analysis) HER2: Negative (0, resulted by image analysis) A. Lymph node(s), Axillary, [place], Right, lymphadenectomy: One lymph node, negative for malignancy (0/1). B. Lymph node(s), Axillary, [place], Right, lymphadenectomy: One lymph node, negative for malignancy (0/1). C. Breast, Right, lumpectomy: 1. Invasive ductal carcinoma. See synoptic report. 2. The margins of excision are uninvolved by tumor. D. Lymph node(s), Axillary, [place], Right, lymphadenectomy: Two lymph nodes, negative for malignancy (0/2). Assessment / plan: Ms. Harry is a 58 year old lady with a history of diabetes, GERD, HLD, PCOS, and seasonal allergies who is being seen by oncology for a new diagnosis of stage IA right breast invasive ductal carcinoma, ER/AL +, HER2/marily negative. Right breast invasive ductal carcinoma, ER/AL positive, HER-2/marily negative, pT1c pN0 Mx, Stage IA: As above, the patient is being seen for new diagnosis of right breast invasive ductal carcinoma, ERPR positive, HER-2/marily negative. This was found on a routine screening mammogram and she did not have any symptoms prior to this. She has been seen by Dr. Gee and had a right breast lumpectomy on 02/27/2019. The final pathology is as above overall stage I a, hormone positive, HER-2/marily negative. -I discussed the pathology results with the patient. We proceeded with Oncotype DX testing to determine if she would benefit from adjuvant chemotherapy in addition to adjuvant endocrine therapy. -Her Oncotype DX testing came back with a score of 17 which is low. Based on this her absolute benefit of adjuvant chemotherapy would be less than 1%. Also, her risk of recurrence at 9 years with either an AI or tamoxifen is 5%. -Given her low Oncotype DX score, I would not recommend adjuvant chemotherapy in addition to adjuvant endocrine therapy. -She was referred to radiation oncology to complete adjuvant radiation. She had this from 05/07/2019to 06/05/2019. She tolerated it well overall with minimal side effects. -The patient would benefit from adjuvant endocrine therapy given her hormone positive malignancy. She is postmenopausal, so I recommended therapy with anastrozole 1 mg daily. We discussed the side effects including hot flashes as well as bony aches and bone density loss. She was provided with the patient handout information on the medication today. -She has been tolerating adjuvant endocrine therapy very well. She started in May 2019. We will plan to continue this and plan for at least 5 years (through 05/2024). -She did have a DEXA scan for baseline testing and this was normal. I will have her continue supplemental calcium 1200 mg daily and vitamin D 800-1000 IU daily. -We will plan to get repeat DEXA scan in 07/2021. -She had her screening mammogram on 01/22/2020. This was normal and she is recommended to have a follow-up in 12 months, due December 2020. Low libido: Likely secondary to menopause as well as endocrine therapy. We discussed options such as lubricant which she is using. Will monitor. Elevated calcium: Resolved. Her labs from last fall showed a normal calcium. Will monitor. Diabetes: Per patient history. She will continue to follow with her PCP for this. Last A1c was 6.2. Hypertension: Per patient history. She will continue follow-up with her PCP for this. RTC 4 months with mammogram prior. Education Provided Education/Instructions given to: (x) Patient (_) Spouse (_) Parent (_) Other Barriers to Learning: (x) None (_) Yes (identify):_ Content: (x) Refer to note above (_)Other (identify):_ Evaluation/Outcome: (x) Verbalized understanding (_) Demonstrated understanding NCCN Guidelines Consulted: (x ) Yes ( ) No Recommendations Concordant with Guidelines: ( x ) Yes ( ) No Reason for Non-Concordance: n/a documented in this encounter* Ronit Sinha CNP - 04/17/2020 9:45 AM EDT Associated Order(s): Tendon Sheath Injection: Flexor Tendon Sheath Post-Procedure Diagnose(s): Trigger thumb of right hand Tendon Sheath Injection: Flexor Tendon Sheath Performed by: Ronit Sinha CNP Authorized by: Ronit Sinha CNP Consent given by: Patient Time out: Immediately prior to the procedure a time out was called Timeout performed at: 04/17/2020 9:45 AM Physician or proceduralist has discussed critical or nonroutine steps, procedure duration and anticipated blood loss: Yes Indications: Pain Location: Thumb Laterality: Right Prep: patient was prepped and draped in usual sterile fashion Needle size: 22 G Approach: Volar Medications: 40 mg triamcinolone acetonide 40 mg/mL Anesthetic used: Ethyl Chloride Patient tolerance: Patient tolerated the procedure well with no immediate complications * Ronit Sinha CNP - 04/17/2020 9:30 AM EDT Lyn Harry 1960 CC: 60 y.o. is a she with No chief complaint on file. . Patient presents for evaluation of right thumb pain. Onset was 2 months ago. The pain is mild, worsens with movement, and is relieved by rest. There is no associated numbness, tingling in her hands, her lab head is weaker on the right side because her thumb does not bend well. Evaluation to date: none.Treatment to date: nothing specific. Patient states that her thumb triggers and catches, sometimes she has to move it herself and it is really painful, now she is to the point where she is having trouble bending her thumb. PMH: Allergies Allergen Reactions Penicillins Swelling Strong family history of penicillin allergy. Current Outpatient Medications: anastrozole (ARIMIDEX) 1 mg tablet, Take 1 (one) tablet (1 mg total) by mouth daily ., Disp: 30 tablet, Rfl: 5 atorvastatin (LIPITOR) 40 MG tablet, Take 1 (one) tablet (40 mg total) by mouth daily ., Disp: 30 tablet, Rfl: 5 calcium carbonate-vitamin D3 (CALCIUM 600 + D,3,) 600 mg(1,500mg) -400 unit per tablet, Take 1 tablet by mouth 2 (two) times a day ., Disp: , Rfl: fexofenadine (LAVERNE) 180 MG tablet, Take 180 mg by mouth daily as needed ., Disp: , Rfl: fluticasone propionate (FLONASE) 50 mcg/actuation nasal spray, Instill 2 (two) sprays into each nostril daily ., Disp: 16 g, Rfl: 0 lisinopriL (PRINIVIL,ZESTRIL) 5 MG tablet, Take 1 (one) tablet (5 mg total) by mouth daily ., Disp:30 tablet, Rfl: 5 metFORMIN (Glucophage XR) 500 MG 24 hr tablet, Take 1 (one) tablet (500 mg total) by mouth daily with breakfast ., Disp: 30 tablet, Rfl: 5 omeprazole (PRILOSEC) 40 MG capsule, Take 1 (one) capsule (40 mg total) by mouth daily ., Disp: 30 capsule, Rfl: 11 Past Medical History: Diagnosis Date Breast cancer (HCC) 01/31/2019 Right-Invasive mammary carcinoma Diabetes mellitus (HCC) GERD (gastroesophageal reflux disease) Hyperlipidemia Hypertension Seasonal allergies Past Surgical History: Procedure Laterality Date APPENDECTOMY BREAST BIOPSY Right ultrasound BREAST LUMPECTOMY Right 02/27/2019 BREAST LUMPECTOMY W/ SENTINEL NODE, NEEDLE LOC, POSS AX DIS Right 02/27/2019 Procedure: RIGHT BREAST LUMPECTOMY WITH SENTINEL NODE BIOPSY WITH NEEDLE LOCALIZATION AND POSSIBLE AXILLARY DISSECTION; Surgeon: Braden Gee MD; Location: [facility] OR; Service: General Surgery SECTION, CLASSIC 1996 COLONOSCOPY 05/19/2017 Normal....Dr. Blackmon D & C WITH LEEP 1994 EXPLORATORY LAPAROTOMY for infertility MM NEEDLE LOCALIZATION RIGHT Right 02/27/2019 MM NEEDLE LOCALIZATION RIGHT 02/27/2019 MAMMOGRAPHY RADIATION Right 04/2019 US BREAST BIOPSY RIGHT Right 01/31/2019 US BREAST BIOPSY RIGHT 01/31/2019, invasive mammary carcinoma US BREAST BIOPSY RIGHT Right 02/06/2019 US BREAST BIOPSY RIGHT Social History Socioeconomic History Marital status: Spouse name: Not on file Number of children: Not on file Years of education: Not on file Highest education level: Not on file Occupational History Not on file Social Needs Financial resource strain: Not on file Food insecurity Worry: Not on file Inability: Not on file Transportation needs Medical: Not on file Non-medical: Not on file Tobacco Use Smoking status: Never Smoker Smokeless tobacco: Never Used Substance and Sexual Activity Alcohol use: Not Currently Comment: SOCIALLY Drug use: No Sexual activity: Never Lifestyle Physical activity Days per week: Not on file Minutes per session: Not on file Stress: Not on file Relationships Social connections Talks on phone: Not on file Gets together: Not on file Attends adventism service: Not on file Active member of club or organization: Not on file Attends meetings of clubs or organizations: Not on file Relationship status: Not on file Other Topics Concern Not on file Social History Narrative Not on file ROS: Review of Systems Constitutional: Negative for activity change and fatigue. HENT: Negative. Eyes: Negative. Respiratory: Negative for chest tightness and shortness of breath. Cardiovascular: Negative for chest pain. Gastrointestinal: Negative. Endocrine: Negative. Genitourinary: Negative. Musculoskeletal: Positive for arthralgias. Skin: Negative for color change. Allergic/Immunologic: Negative. Neurological: Negative for dizziness, light-headedness and numbness. Hematological: Negative. Psychiatric/Behavioral: Negative for agitation. PE: Physical Exam Constitutional: She is oriented to person, place, and time. She appears well- developed and well-nourished. HENT: Head: Normocephalic and atraumatic. Eyes: Pupils are equal, round, and reactive to light. Neck: Normal range of motion. Neck supple. Cardiovascular: Normal rate and regular rhythm. Pulmonary/Chest: Effort normal and breath sounds normal. Abdominal: Soft. Musculoskeletal: General: Tenderness present. Neurological: She is alert and oriented to person, place, and time. Skin: Skin is warm and dry. Psychiatric: She has a normal mood and affect. Her behavior is normal. Right Hand Exam Tenderness Right hand tenderness location: right thumb A1 santana. Range of Motion Hand MP Thumb: normal DIP Thumb: normal Muscle Strength Wrist extension: 5/5 Wrist flexion: 5/5 Software Licensing Specialist: 4/5 Tests Phalen s Sign: negative Tinel's sign (median nerve): negative Rosalia's test: negative Other Erythema: absent Scars: absent Sensation: normal Pulse: present Comments: Small lump felt at the A1 santana of the thumb Catching noted at the A1 santana when she attempts to bend her thumb Left Hand Exam Left hand exam is normal. Imaging: None Diagnosis: Problem List Items Addressed This Visit None Plan: Discussed trigger finger and treatment options with the patient today. She is wanting to try the cortisone injection today and see how that works before she decides to have surgical intervention. Injection was given without difficulty and patient tolerated it well. Patient will also take Ibuprofen at home to help with any pain and inflammation. Patient will follow up in a few weeks if she is not better from the injection. Patient understands and agrees to proceed. Follow Up: No follow-ups on file. Ronit Sinha CNP documented in this encounter* Ronit Sinha CNP - 06/10/2020 9:02 AM EDT Lyn Harry 1960 CC: 60 y.o. is a she with Chief Complaint Patient presents with Left Thumb - Pain, Injections . Patient presents for evaluation of left hand/finger pain. Onset was few months ago. The pain is mild, worsens with movement, and is relieved by movement. There is no associated numbness, tingling, weakness in her hands. Evaluation to date: none. Treatment to date: nothing specific. States that her thumb is sticking and she has to pull it up. She had this problem in her right thumb got a cortisoneinjection and it has been fine since, she is wanting an injection today. PMH: Allergies Allergen Reactions Penicillins Swelling Strong family history of penicillin allergy. Current Outpatient Medications: anastrozole (ARIMIDEX) 1 mg tablet, Take 1 (one) tablet (1 mg total) by mouth daily ., Disp: 30 tablet, Rfl: 5 atorvastatin (LIPITOR) 40 MG tablet, Take 1 (one) tablet (40 mg total) by mouth daily ., Disp: 30 tablet, Rfl: 5 calcium carbonate-vitamin D3 (CALCIUM 600 + D,3,) 600 mg(1,500mg) -400 unit per tablet, Take 1 tablet by mouth 2 (two) times a day ., Disp: , Rfl: fexofenadine (LAVERNE) 180 MG tablet, Take 180 mg by mouth daily as needed ., Disp: , Rfl: lisinopriL (PRINIVIL,ZESTRIL) 5 MG tablet, Take 1 (one) tablet (5 mg total) by mouth daily ., Disp:30 tablet, Rfl: 5 metFORMIN (Glucophage XR) 500 MG 24 hr tablet, Take 1 (one) tablet (500 mg total) by mouth daily with breakfast ., Disp: 30 tablet, Rfl: 5 omeprazole (PRILOSEC) 40 MG capsule, Take 1 (one) capsule (40 mg total) by mouth daily ., Disp: 30 capsule, Rfl: 11 fluticasone propionate (FLONASE) 50 mcg/actuation nasal spray, Instill 2 (two) sprays into each nostril daily ., Disp: 16 g, Rfl: 0 Past Medical History: Diagnosis Date Breast cancer (HCC) 01/31/2019 Right-Invasive mammary carcinoma Diabetes mellitus (HCC) GERD (gastroesophageal reflux disease) Hyperlipidemia Hypertension Seasonal allergies Past Surgical History: Procedure Laterality Date APPENDECTOMY BREAST BIOPSY Right ultrasound BREAST LUMPECTOMY Right 02/27/2019 BREAST LUMPECTOMY W/ SENTINEL NODE, NEEDLE LOC, POSS AX DIS Right 02/27/2019 Procedure: RIGHT BREAST LUMPECTOMY WITH SENTINEL NODE BIOPSY WITH NEEDLE LOCALIZATION AND POSSIBLE AXILLARY DISSECTION; Surgeon: Braden Gee MD; Location: Main OR; Service: General Surgery SECTION, CLASSIC 1996 COLONOSCOPY 05/19/2017 Normal....Dr. Blackmon D & C WITH [place] 1994 EXPLORATORY LAPAROTOMY for infertility MM NEEDLE LOCALIZATION RIGHT Right 02/27/2019 MM NEEDLE LOCALIZATION RIGHT 02/27/2019 MAMMOGRAPHY RADIATION Right 04/2019 US BREAST BIOPSY RIGHT Right 01/31/2019 US BREAST BIOPSY RIGHT 01/31/2019, invasive mammary carcinoma US BREAST BIOPSY RIGHT Right 02/06/2019 US BREAST BIOPSY RIGHT Social History Socioeconomic History Marital status: Spouse name: Not on file Number of children: Not on file Years of education: Not on file Highest education level: Not on file Occupational History Not on file Social Needs Financial resource strain: Not on file Food insecurity Worry: Not on file Inability: Not on file Transportation needs Medical: Not on file Non-medical: Not on file Tobacco Use Smoking status: Never Smoker Smokeless tobacco: Never Used Substance and Sexual Activity Alcohol use: Not Currently Comment: SOCIALLY Drug use: No Sexual activity: Never Lifestyle Physical activity Days per week: Not on file Minutes per session: Not on file Stress: Not on file Relationships Social connections Talks on phone: Not on file Gets together: Not on file Attends adventism service: Not on file Active member of club or organization: Not on file Attends meetings of clubs or organizations: Not on file Relationship status: Not on file Other Topics Concern Not on file Social History Narrative Not on file ROS: Review of Systems Constitutional: Negative for activity change and fatigue. HENT: Negative. Eyes: Negative. Respiratory: Negative for chest tightness and shortness of breath. Cardiovascular: Negative for chest pain. Gastrointestinal: Negative. Endocrine: Negative. Genitourinary: Negative. Musculoskeletal: Positive for arthralgias. Skin: Negative for color change. Allergic/Immunologic: Negative. Neurological: Negative for dizziness, light-headedness and numbness. Hematological: Negative. Psychiatric/Behavioral: Negative for agitation. PE: Physical Exam Constitutional: She is oriented to person, place, and time. She appears well- developed and well-nourished. HENT: Head: Normocephalic and atraumatic. Eyes: Pupils are equal, round, and reactive to light. Neck: Normal range of motion. Neck supple. Cardiovascular: Normal rate and regular rhythm. Pulmonary/Chest: Effort normal and breath sounds normal. Abdominal: Soft. Musculoskeletal: General: Tenderness present. Neurological: She is alert and oriented to person, place, and time. Skin: Skin is warm and dry. Psychiatric: She has a normal mood and affect. Her behavior is normal. Left Hand Exam Tenderness Left hand tenderness location: thumb a1 santana. Range of Motion Hand MP Thumb: normal DIP Thumb: normal Muscle Strength The patient has normal left wrist strength. Tests Phalen s Sign: negative Tinel's sign (median nerve): negative Rosalia's test: negative Other Erythema: absent Scars: absent Sensation: normal Pulse: present Comments: Popping sensation at the A1 santana Imaging: None Diagnosis: Problem List Items Addressed This Visit None Visit Diagnoses Trigger finger of left thumb - Primary Plan: Discussed trigger finger with the patient and treatment options. States the injection she got in her right thumb has helped her significantly so she is wanting an injection today. This was given without difficulty. She will follow up as needed. Patient understands and agrees to proceed. Follow Up: Return if symptoms worsen or fail to improve. Ronit Sinha CNP documented in this encounter* Braden Gee MD - 08/19/2020 2:38 PM EDT [facility] PATIENT: Lyn Harry DATE / TIME: 08/19/20 2:38 PM POS: Office AGE: 60 y.o. : 1960 RACE: [1] SEX: female PCP: Dereje Trejo MD REFERRAL: No ref. provider found TOS: SUBJECTIVE: 58-year-old female female past medical history of diabetes GERD hyperlipidemia and seasonal allergies referred for abnormality seen on a recent screening mammography. Underwent a right breast ultrasound identified to have a 0.7 cm x 0.5 cm suspicious nodule. Now status post right breastultrasound-guided biopsy with confirmed invasive ductal carcinoma ER AL positive HER-2 negative, clinical stage T1 cNX MX. Now status post right needle localized lumpectomy and sentinel lymph node biopsy with a pathologic stage pT1c pN0(sn). Overall doing well since surgery. Has completed her course of radiation currently taking anastrozole. Complains of morning hand cramping and pain in the collarbones. Additionally has a sensation of fullness in the right axilla with pain on palpation. OBJECTIVE: BP 137/85 Pulse 91 Temp 98.5 F (36.9 C) Resp 16 Ht 5' 5" Wt 92.1 kg (203 lb) SpO2 97% BMI 33.78 kg/m PE Right axilla: Firmness is present within the right axilla does not feel like distinctive lymph nodes. Tender to palpation. No cervical lymphadenopathy present Right breast incision is intact breast incision is well-appearing. Minor dimpling of the right breast skin compared to the left secondary to radiation. Softening of the scar is present with no distinct mass appreciable in the right breast. Left breast no palpable masses in all 4 quadrants. Nipple appears normal with no retraction. No fluid expressible. Left axilla without any palpable lymph nodes. Lab Results Component Value Date WBC 3.50 (L) 07/07/2020 RBC 4.36 07/07/2020 HGB 13.6 07/07/2020 HCT 40.5 07/07/2020 PLT 164 07/07/2020 No results found for: AMYLASE No results found for: LIPASE IMAGING: Surveillance mammography 01/22/2020 EXAMINATION: MM DIAGNOSTIC GEOVANNY BILATERAL INDICATION: ORDERING SYSTEM PROVIDED HISTORY: h/o right breast cancer with lumpectomy. 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 Computer-aided detection was utilized in the interpretation of this exam. FINDINGS: MAMMOGRAPHY: The breast tissue density is heterogenously dense. There are postsurgical changes of the right breast. No suspicious masses, asymmetries or calcifications identified within the right or left breast. There are benign calcifications within the left breast. IMPRESSION: No mammographic or sonographic evidence of malignancy. BIRADS: BIRADS - CATEGORY 2 Benign, no evidence of malignancy. Normal interval follow-up is recommended in 12 months. OVERALL ASSESSMENT - BENIGN PATHOLOGY: Surgical Pathology Report Case: [id number] Authorizing Provider: Braden Gee MD Collected: 02/27/2019 12:38 PM Ordering Location: [facility]i Received: 02/27/2019 12:55 PM Pathologist: Kirby Olvera IV, MD Specimens: A) - Lymph Node, [place], Axillary, Right, [place] Lymph Node A B) - Lymph Node, [place], Axillary, Right, [place] Lymph Node B C) - Breast, Right, Right Breast Lumpectomy D) - Lymph Node, [place], Axillary, Right, Additional [place] Lymph Node Final Diagnosis Histologic type: Invasive ductal carcinoma, not otherwise specified Histologic (Umesh) grade: Glandular/Tubular differentiation: Score 3 Nuclear pleomorphism: Score 1 Mitotic rate: Score 1 Overall grade: Grade 1 (scores of 3, 4, or 5) Margins: Invasive carcinoma margins: Uninvolved by invasive carcinoma Distance from closest margin: Inferior margin, 2 mm DCIS margins: Uninvolved by DCIS Distance from closest margin: Inferior margin, 6 mm Pathologic Stage (AJCC 8th Ed.): pT1c pN0(sn) Procedure: Partial mastectomy Specimen laterality: Right Tumor site: 12 o'clock Tumor size: 1.9 cm Tumor focality: Single focus of invasive carcinoma Ductal carcinoma in-situ (DCIS): Present Tumor extension: Skin: Skin is not present Nipple: Nipple is not present Skeletal muscle: No skeletal muscle is present Regional lymph nodes: Uninvolved by tumor cells Number of lymph nodes examined: 4 Number of sentinel lymph nodes examined: 4 Treatment effect: No known presurgical therapy Lymphovascular invasion: Not identified Dermal lymphovascular invasion: No skin present Additional pathologic findings: None Ancillary studies: (performed on prior biopsy [id number]) ER: Positive ( 100%, 3+ intensity, resulted by image analysis) AL: Positive ( 100%, 3+ intensity, resulted by image analysis) HER2: Negative (0, resulted by image analysis) A. Lymph node(s), Axillary, [place], Right, lymphadenectomy: One lymph node, negative for malignancy (0/1). B. Lymph node(s), Axillary, [place], Right, lymphadenectomy: One lymph node, negative for malignancy (0/1). C. Breast, Right, lumpectomy: 1. Invasive ductal carcinoma. See synoptic report. 2. The margins of excision are uninvolved by tumor. D. Lymph node(s), Axillary, [place], Right, lymphadenectomy: Two lymph nodes, negative for malignancy (0/2). ASSESSMENT: 58-year-old female female past medical history of diabetes GERD hyperlipidemia and seasonal allergies referred for abnormality seen on a recent screening mammography. Underwent a right breast ultrasound identified to have a 0.7 cm x 0.5 cm suspicious nodule. Now status post right breastultrasound-guided biopsy with confirmed invasive ductal carcinoma ER AL positive HER-2 negative, clinical stage T1 cNX MX. Now status post right needle localized lumpectomy and sentinel lymph node biopsy with a pathologic stage pT1c pN0(sn) (February 2019). Status post completion full breast and axillary radiation. PLAN: Patient Active Problem List Diagnosis Type 2 diabetes mellitus (HCC) Mixed hyperlipidemia GERD without esophagitis Seasonal allergies Vitamin D deficiency PCOS (polycystic ovarian syndrome) NAFL (nonalcoholic fatty liver) Invasive ductal carcinoma of breast, female, right (HCC) Essential hypertension History of right breast invasive ductal carcinoma, pT1c pN0(sn). Status post lumpectomy and sentinel lymph node biopsy (February 2019) and completion of her radiation. Tolerating anastrozole well. Due to the fullness within the right axilla and tenderness will obtain a right axillary ultrasound. Her mammograms will be due in January 2021 We will have her return to my office in 6 months after the mammograms documented in this encounter* Marion Garrett MD - 08/19/2020 3:00 PM EDT [facility] Note Date of service: 08/19/2020 Referring Physician: Braden Gee MD PCP: Dereje Trejo MD Diagnosis/chief Complaint: Right breast invasive ductal carcinoma, ER/AL +, HER2/marily negative AJCC stage: pT1c pN0 Mx, Stage IA Date of diagnosis: 01/31/19 Goal of treatment: curative Treatment delivered: Right breast lumpectomy with SLND Reason for visit: R breast invasive ductal carcinoma Interval History: Ms. Harry is here to follow-up while on adjuvant endocrine therapy with anastrozole. She started this in May 2019. She has been tolerating it fairly well, however she has noticed increased stiffness in her fingers as well as trigger finger in both thumbs. She also has some tenderness along her colla rbone. This seems to be new over the last few months. She is wondering if it is due to medication. She really does not have any major hot flashes. Otherwise she is doing well. No nausea or vomiting. No fevers or chills. She has some fullness in the right axilla and she is getting an ultrasound which was ordered by Dr. Gee. Her weight is stable. HPI: Ms. Harry is a 58 year old lady with a history of diabetes, GERD, HLD, PCOS, and seasonal allergies who is being seen by oncology for a new diagnosis of stage IA right breast invasive ductal carcinoma, ER/AL +, HER2/marily negative. The patient states that she was not having any issues prior to the diagnosis. This was found on a routine screening mammogram. She says she had a mammogram last year thatwas normal. She had a mammogram at the end of December which noted a right breast lesion that was concerning for malignancy. Given this they proceeded with a biopsy which confirmed right breast invasive ductal carcinoma, ER AL positive, HER-2/marily negative. She was then referred to see Dr. Gee. They discussed surgical options and the patient elected to proceed with a right breast lumpectomy andsentinel lymph node dissection. She tolerated surgery well and is healing well from her surgery. This was performed in early February. Her final pathology shows a tumor measuring up to 1.9 cm. The sentinel lymph node were negative for malignancy. It was overall grade 1. Her final pathology shows a pT1c pN0 Mx stage I a invasive ductal carcinoma of the right breast, ER/AL positive, HER-2/marily negative. She is healing well from the surgery and she is here today to discuss next steps in her therapy. She denies any family history of breast cancer. No family history of ovarian cancer or endometrial cancer. Reproductive risk factors: Age of menarche at 17 years Age of menopause at 56 years. 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 control pills: yes. Hormone replacement therapy: yes. Caffeine intake yes History of prior breast biopsy no History of prior breast cancer no Family History : Breast cancer no Ovarian Cancer no Endometrial cancer no Family History of breast disease no ROS: General- Denies weakness, fever/chills, weight gain/loss, fatigue, change in appetite, or cold and flu symptoms HEENT: Denies hearing changes or tinnitus, vision changes, sinus pain/tenderness, nasal congestion,epistaxis, gingival bleed, sore throat, or mouth sores Cardiac; Denies CP, palpitations, dizziness, claudication, or QUINN Pulmonary- Denies SOB, wheezing, PND, or cough GI- Denies nausea and vomiting, dysphagia, heartburn, abdominal pain, diarrhea or constipation - Denies urgency, frequency, hematuria or incontinence, complains of burning when urinating Endo- Denies excessive sweating, polyuria, or polydypsia MS - Denies joint stiffness swelling, or decreased ROM, Neuro- Denies loss of consciousness, numbness or tingling Skin- Denies jaundice, rashes, or open lesions Heme- Denies night sweats, signs and symptoms of infection, easily bleeding or bruising Psych- Denies signs and symptoms of depression or suicidal thoughts Past Medical History: Diagnosis Date Breast cancer (HCC) 01/31/2019 Right-Invasive mammary carcinoma Diabetes mellitus (HCC) GERD (gastroesophageal reflux disease) Hyperlipidemia Hypertension Seasonal allergies Past Surgical History: Procedure Laterality Date APPENDECTOMY BREAST BIOPSY Right ultrasound BREAST LUMPECTOMY Right 02/27/2019 BREAST LUMPECTOMY W/ SENTINEL NODE, NEEDLE LOC, POSS AX DIS Right 02/27/2019 Procedure: RIGHT BREAST LUMPECTOMY WITH SENTINEL NODE BIOPSY WITH NEEDLE LOCALIZATION AND POSSIBLE AXILLARY DISSECTION; Surgeon: Braden Gee MD; Location: Main OR; Service: General Surgery SECTION, CLASSIC 1996 COLONOSCOPY 05/19/2017 Normal....Dr. Blackmon D & C WITH LEEP 1994 EXPLORATORY LAPAROTOMY for infertility MM NEEDLE LOCALIZATION RIGHT Right 02/27/2019 MM NEEDLE LOCALIZATION RIGHT 02/27/2019 MAMMOGRAPHY RADIATION Right 04/2019 US BREAST BIOPSY RIGHT Right 01/31/2019 US BREAST BIOPSY RIGHT 01/31/2019, invasive mammary carcinoma US BREAST BIOPSY RIGHT Right 02/06/2019 US BREAST BIOPSY RIGHT Family History Problem Relation Age of Onset Heart attack Paternal Grandfather Cancer Paternal Grandmother Unknown Cancer Lung cancer Paternal Aunt Breast cancer Neg Hx Social History Socioeconomic History Marital status: Spouse name: Not on file Number of children: Not on file Years of education: Not on file Highest education level: Not on file Occupational History Not on file Social Needs Financial resource strain: Not on file Food insecurity Worry: Not on file Inability: Not on file Transportation needs Medical: Not on file Non-medical: Not on file Tobacco Use Smoking status: Never Smoker Smokeless tobacco: Never Used Substance and Sexual Activity Alcohol use: Not Currently Comment: SOCIALLY Drug use: No Sexual activity: Yes Partners: Male control/protection: Post-menopausal Lifestyle Physical activity Days per week: Not on file Minutes per session: Not on file Stress: Not on file Relationships Social connections Talks on phone: Not on file Gets together: Not on file Attends adventism service: Not on file Active member of club or organization: Not on file Attends meetings of clubs or organizations: Not on file Relationship status: Not on file Other Topics Concern Not on file Social History Narrative Not on file Allergies Allergen Reactions Penicillins Swelling Strong family history of penicillin allergy. Current Outpatient Medications: anastrozole (ARIMIDEX) 1 mg tablet, Take 1 (one) tablet (1 mg total) by mouth daily ., Disp: 30 tablet, Rfl: 5 atorvastatin (LIPITOR) 40 MG tablet, Take 1 (one) tablet (40 mg total) by mouth daily ., Disp: 90 tablet, Rfl: 1 calcium carbonate-vitamin D3 (CALCIUM 600 + D,3,) 600 mg(1,500mg) -400 unit per tablet, Take 1 tablet by mouth 2 (two) times a day ., Disp: , Rfl: fexofenadine (LAVERNE) 180 MG tablet, Take 180 mg by mouth daily as needed ., Disp: , Rfl: lisinopriL (PRINIVIL,ZESTRIL) 5 MG tablet, Take 1 (one) tablet (5 mg total) by mouth daily ., Disp:90 tablet, Rfl: 1 metFORMIN (Glucophage XR) 500 MG 24 hr tablet, Take 1 (one) tablet (500 mg total) by mouth daily with breakfast ., Disp: 90 tablet, Rfl: 1 omeprazole (PRILOSEC) 40 MG capsule, Take 1 (one) capsule (40 mg total) by mouth daily ., Disp: 90 capsule, Rfl: 1 oxybutynin (DITROPAN-XL) 5 MG 24 hr tablet, Take 1 (one) tablet (5 mg total) by mouth daily . (Patient not taking: Reported on 08/19/2020 .), Disp: 30 tablet, Rfl: 5 Physical exam: ECOG PS: 0 PACU Vitals 08/19/20 1447 BP: 137/85 Pulse: 91 Temp: 98.5 F (36.9 C) SpO2: 97% General: well-appearing, no acute distress HEENT: NCAT, sclera anicteric, moist mm, o/p clear , no oral mucosal lesions Neck: supple, no supraclavicular adenopathy Lymph: no cervical, supraclavicular, or axillary LAD Chest: CTAB, no w/r/r, no respiratory distress CV: RRR, no S3 S4 gallops or murmurs Abd: soft, NT/ND, no HSM or masses, + BS Extrem: wwp, no c/c/e Skin: no rashes or lesions Neuro: alert, oriented, CN intact, speech fluent, strength full and symmetric Breast: Right breast with 3 cm horizontal incision that is located about 2 cm above the nipple, well-healed, no erythema or drainage. Mild erythema from radiation. No masses palpated in right breast.No axillary adenopathy appreciated. Left breast with no masses palpated or skin changes or nipple di scharge. No axillary adenopathy. Psych: Mood normal, Affect normal Labs: Lab Results Component Value Date WBC 3.50 (L) 07/07/2020 HGB 13.6 07/07/2020 HCT 40.5 07/07/2020 MCV 92.9 07/07/2020 PLT 164 07/07/2020 RBC 4.36 07/07/2020 Lab Results Component Value Date GLUCOSE 129 (H) 07/07/2020 CALCIUM 9.7 07/07/2020 NA 142 07/07/2020 K 4.4 07/07/2020 CL 109 (H) 07/07/2020 BUN 12 07/07/2020 CREATININE 0.90 07/07/2020 Lab Results Component Value Date ALT 29 07/07/2020 AST 20 07/07/2020 ALKPHOS 74 07/07/2020 BILITOT 0.9 07/07/2020 Imaging: Mammogram 01/22/20: No mammographic or sonographic evidence of malignancy. BIRADS - CATEGORY 2 Benign, no evidence of malignancy. Normal interval follow-up is recommended in 12 months. DEXA 08/17/19: Normal Mammogram 01/24/19: 1. Suspicious mass within the right breast at 12:00 5 cm from the nipple. 2. Benign complicated appearing cyst within the left breast at 10:00 4 cm from the nipple. OVERALL BIRADS: 4C-HIGH SUSPICION FOR MALIGNANCY-BIOPSY IS RECOMMENDED. RECOMMENDATION: 1: Ultrasound-guided biopsy of the right breast is recommended. Pathology: Right breast Lumpectomy 02/27/19: Histologic type: Invasive ductal carcinoma, not otherwise specified Histologic (Umesh) grade: Glandular/Tubular differentiation: Score 3 Nuclear pleomorphism: Score 1 Mitotic rate: Score 1 Overall grade: Grade 1 (scores of 3, 4, or 5) Margins: Invasive carcinoma margins: Uninvolved by invasive carcinoma Distance from closest margin: Inferior margin, 2 mm DCIS margins: Uninvolved by DCIS Distance from closest margin: Inferior margin, 6 mm Pathologic Stage (AJCC 8th Ed.): pT1c pN0(sn) Procedure: Partial mastectomy Specimen laterality: Right Tumor site: 12 o'clock Tumor size: 1.9 cm Tumor focality: Single focus of invasive carcinoma Ductal carcinoma in-situ (DCIS): Present Tumor extension: Skin: Skin is not present Nipple: Nipple is not present Skeletal muscle: No skeletal muscle is present Regional lymph nodes: Uninvolved by tumor cells Number of lymph nodes examined: 4 Number of sentinel lymph nodes examined: 4 Treatment effect: No known presurgical therapy Lymphovascular invasion: Not identified Dermal lymphovascular invasion: No skin present Additional pathologic findings: None Ancillary studies: (performed on prior biopsy [id number]) ER: Positive ( 100%, 3+ intensity, resulted by image analysis) AL: Positive ( 100%, 3+ intensity, resulted by image analysis) HER2: Negative (0, resulted by image analysis) A. Lymph node(s), Axillary, [place], Right, lymphadenectomy: One lymph node, negative for malignancy (0/1). B. Lymph node(s), Axillary, [place], Right, lymphadenectomy: One lymph node, negative for malignancy (0/1). C. Breast, Right, lumpectomy: 1. Invasive ductal carcinoma. See synoptic report. 2. The margins of excision are uninvolved by tumor. D. Lymph node(s), Axillary, [place], Right, lymphadenectomy: Two lymph nodes, negative for malignancy (0/2). Assessment / plan: Ms. Harry is a 58 year old lady with a history of diabetes, GERD, HLD, PCOS, and seasonal allergies who is being seen by oncology for a new diagnosis of stage IA right breast invasive ductal carcinoma, ER/AL +, HER2/marily negative. Right breast invasive ductal carcinoma, ER/AL positive, HER-2/marily negative, pT1c pN0 Mx, Stage IA: As above, the patient is being seen for new diagnosis of right breast invasive ductal carcinoma, ERPR positive, HER-2/marily negative. This was found on a routine screening mammogram and she did not have any symptoms prior to this. She has been seen by Dr. Gee and had a right breast lumpectomy on 02/27/2019. The final pathology is as above overall stage I a, hormone positive, HER-2/marily negative. -I discussed the pathology results with the patient. We proceeded with Oncotype DX testing to determine if she would benefit from adjuvant chemotherapy in addition to adjuvant endocrine therapy. -Her Oncotype DX testing came back with a score of 17 which is low. Based on this her absolute benefit of adjuvant chemotherapy would be less than 1%. Also, her risk of recurrence at 9 years with either an AI or tamoxifen is 5%. -Given her low Oncotype DX score, I would not recommend adjuvant chemotherapy in addition to adjuvant endocrine therapy. -She was referred to radiation oncology to complete adjuvant radiation. She had this from 05/07/2019to 06/05/2019. She tolerated it well overall with minimal side effects. -The patient would benefit from adjuvant endocrine therapy given her hormone positive malignancy. She is postmenopausal, so I recommended therapy with anastrozole 1 mg daily. We discussed the side effects including hot flashes as well as bony aches and bone density loss. -She has been tolerating the endocrine therapy fairly well, however recently she has noticed some increase stiffness in her fingers and pain on her collarbones. We discussed taking a break from the Arimidex for a couple weeks to see if this improves. If so we can switch her to exemestane. If not itis unlikely due to the Arimidex and she will resume this. I told her we will check back in with her in 2 weeks with a phone call. She was agreeable with this. -She should continue endocrine therapy for at least 5 years, through 05/2024. -She did have a DEXA scan for baseline testing and this was normal. I will have her continue supplemental calcium 1200 mg daily and vitamin D 800-1000 IU daily. -We will plan to get repeat DEXA scan in 07/2021. Will order at next visit. -She had her screening mammogram on 01/22/2020. This was normal and she is recommended to have a follow-up in 12 months, due December 2020. I ordered this today. Elevated calcium: Resolved. Her labs from last fall showed a normal calcium. Will monitor. Diabetes: Per patient history. She will continue to follow with her PCP for this. Last A1c was 6.2. Hypertension: Per patient history. She will continue follow-up with her PCP for this. RTC 6 months with mammogram prior. Education Provided Education/Instructions given to: (x) Patient (_) Spouse (_) Parent (_) Other Barriers to Learning: (x) None (_) Yes (identify):_ Content: (x) Refer to note above (_)Other (identify):_ Evaluation/Outcome: (x) Verbalized understanding (_) Demonstrated understanding NCCN Guidelines Consulted: (x ) Yes ( ) No Recommendations Concordant with Guidelines: ( x ) Yes ( ) No Reason for Non-Concordance: n/a documented in this encounter* Marion Garrett MD - 06/19/2019 1:00 PM EDT [facility] Note Date of service: 06/19/2019 Referring Physician: Braden Gee MD PCP: Dereje Trejo MD Diagnosis/chief Complaint: Right breast invasive ductal carcinoma, ER/AL +, HER2/marily negative AJCC stage: pT1c pN0 Mx, Stage IA Date of diagnosis: 01/31/19 Goal of treatment: curative Treatment delivered: Right breast lumpectomy with SLND Reason for visit: R breast invasive ductal carcinoma Interval History: Ms. Harry is here to follow-up after completing radiation to the right breast. She started her radiation on 05/07/2019 and completed it on 06/05/2019. She tolerated the treatments very well with only minimal skin irritation. She denies any new issues. No new medications. She denies any other new pain, fevers, chills, nausea, vomiting. HPI: Ms. Harry is a 58 year old lady with a history of diabetes, GERD, HLD, PCOS, and seasonal allergies who is being seen by oncology for a new diagnosis of stage IA right breast invasive ductal carcinoma, ER/AL +, HER2/marily negative. The patient states that she was not having any issues prior to the diagnosis. This was found on a routine screening mammogram. She says she had a mammogram last year thatwas normal. She had a mammogram at the end of December which noted a right breast lesion that was concerning for malignancy. Given this they proceeded with a biopsy which confirmed right breast invasive ductal carcinoma, ER AL positive, HER-2/marily negative. She was then referred to see Dr. Gee. They discussed surgical options and the patient elected to proceed with a right breast lumpectomy andsentinel lymph node dissection. She tolerated surgery well and is healing well from her surgery. This was performed in early February. Her final pathology shows a tumor measuring up to 1.9 cm. The sentinel lymph node were negative for malignancy. It was overall grade 1. Her final pathology shows a pT1c pN0 Mx stage I a invasive ductal carcinoma of the right breast, ER/AL positive, HER-2/marily negative. She is healing well from the surgery and she is here today to discuss next steps in her therapy. She denies any family history of breast cancer. No family history of ovarian cancer or endometrial cancer. Reproductive risk factors: Age of menarche at 17 years Age of menopause at 56 years. 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 control pills: yes. Hormone replacement therapy: yes. Caffeine intake yes History of prior breast biopsy no History of prior breast cancer no Family History : Breast cancer no Ovarian Cancer no Endometrial cancer no Family History of breast disease no ROS: General- Denies weakness, fever/chills, weight gain/loss, fatigue, change in appetite, or cold and flu symptoms HEENT: Denies hearing changes or tinnitus, vision changes, sinus pain/tenderness, nasal congestion,epistaxis, gingival bleed, sore throat, or mouth sores Cardiac; Denies CP, palpitations, dizziness, claudication, or QUINN Pulmonary- Denies SOB, wheezing, PND, or cough GI- Denies nausea and vomiting, dysphagia, heartburn, abdominal pain, diarrhea or constipation - Denies urgency, frequency, hematuria or incontinence, complains of burning when urinating Endo- Denies excessive sweating, polyuria, or polydypsia MS - Denies joint stiffness swelling, or decreased ROM, Neuro- Denies loss of consciousness, numbness or tingling Skin- Denies jaundice, rashes, or open lesions Heme- Denies night sweats, signs and symptoms of infection, easily bleeding or bruising Psych- Denies signs and symptoms of depression or suicidal thoughts Past Medical History: Diagnosis Date Breast cancer (HCC) 01/31/2019 Right-Invasive mammary carcinoma Diabetes mellitus (HCC) Elevated blood-pressure reading, without diagnosis of hypertension 01/02/2019 GERD (gastroesophageal reflux disease) Hyperlipidemia Hypertension Seasonal allergies Past Surgical History: Procedure Laterality Date APPENDECTOMY BREAST BIOPSY Right ultrasound BREAST LUMPECTOMY W/ SENTINEL NODE, NEEDLE LOC, POSS AX DIS Right 02/27/2019 Procedure: RIGHT BREAST LUMPECTOMY WITH SENTINEL NODE BIOPSY WITH NEEDLE LOCALIZATION AND POSSIBLE AXILLARY DISSECTION; Surgeon: Braden Gee MD; Location: Main OR; Service: General Surgery SECTION, CLASSIC 1996 COLONOSCOPY 05/19/2017 Normal....Dr. Blackmon D & C WITH LEERonan 1994 EXPLORATORY LAPAROTOMY for infertility MM NEEDLE LOCALIZATION RIGHT Right 02/27/2019 MM NEEDLE LOCALIZATION RIGHT 02/27/2019 [facility] MAMMOGRAPHY US BREAST BIOPSY RIGHT Right 01/31/2019 US BREAST BIOPSY RIGHT 01/31/2019, invasive mammary carcinoma US BREAST BIOPSY RIGHT Right 02/06/2019 US BREAST BIOPSY RIGHT Family History Problem Relation Age of Onset Aneurysm Father Heart attack Paternal Grandfather Cancer Paternal Grandmother Social History Socioeconomic History Marital status: Spouse name: Not on file Number of children: Not on file Years of education: Not on file Highest education level: Not on file Occupational History Not on file Social Needs Financial resource strain: Not on file Food insecurity: Worry: Not on file Inability: Not on file Transportation needs: Medical: Not on file Non-medical: Not on file Tobacco Use Smoking status: Never Smoker Smokeless tobacco: Never Used Substance and Sexual Activity Alcohol use: Not Currently Comment: SOCIALLY Drug use: No Sexual activity: Not on file Lifestyle Physical activity: Days per week: Not on file Minutes per session: Not on file Stress: Not on file Relationships Social connections: Talks on phone: Not on file Gets together: Not on file Attends adventism service: Not on file Active member of club or organization: Not on file Attends meetings of clubs or organizations: Not on file Relationship status: Not on file Other Topics Concern Not on file Social History Narrative Not on file Allergies Allergen Reactions Penicillins Swelling Strong family history of penicillin allergy. Nsaids (Non-Steroidal Anti-Inflammatory Drug) Has CKD-2, Has no reaction Current Outpatient Medications: atorvastatin (LIPITOR) 40 MG tablet, Take 1 (one) tablet (40 mg total) by mouth daily ., Disp: 30 tablet, Rfl: 5 fexofenadine (LAVERNE) 180 MG tablet, Take 180 mg by mouth daily as needed ., Disp: , Rfl: lisinopril (PRINIVIL,ZESTRIL) 5 MG tablet, Take 1 (one) tablet (5 mg total) by mouth daily ., Disp:30 tablet, Rfl: 11 metFORMIN (GLUCOPHAGE XR) 500 MG 24 hr tablet, Take 1 (one) tablet (500 mg total) by mouth daily with breakfast ., Disp: 30 tablet, Rfl: 5 omeprazole (PRILOSEC) 40 MG capsule, Take 1 (one) capsule (40 mg total) by mouth daily ., Disp: 30 capsule, Rfl: 11 anastrozole (ARIMIDEX) 1 mg tablet, Take 1 (one) tablet (1 mg total) by mouth daily ., Disp: 30 tablet, Rfl: 2 Physical exam: ECOG PS: 0 PACU Vitals 06/19/19 1309 BP: 133/83 Pulse: 73 Temp: 98.7 F (37.1 C) SpO2: 94% General: well-appearing, no acute distress HEENT: NCAT, sclera anicteric, moist mm, o/p clear , no oral mucosal lesions Neck: supple, no supraclavicular adenopathy Lymph: no cervical, supraclavicular, or axillary LAD Chest: CTAB, no w/r/r, no respiratory distress CV: RRR, no S3 S4 gallops or murmurs Abd: soft, NT/ND, no HSM or masses, + BS Extrem: wwp, no c/c/e Skin: no rashes or lesions Neuro: alert, oriented, CN intact, speech fluent, strength full and symmetric Breast: Right breast with 3 cm horizontal incision that is located about 2 cm above the nipple, well-healed, no erythema or drainage. Mild erythema from radiation. No masses palpated in right breast.No axillary adenopathy appreciated. Left breast with no masses palpated or skin changes or nipple di scharge. No axillary adenopathy. Psych: Mood normal, Affect normal Labs: Lab Results Component Value Date WBC 4.48 (L) 02/21/2019 HGB 13.6 02/21/2019 HCT 38.9 02/21/2019 MCV 88.6 02/21/2019 PLT 159 02/21/2019 RBC 4.39 02/21/2019 Lab Results Component Value Date GLUCOSE 173 (H) 03/28/2019 CALCIUM 9.2 03/28/2019 NA 138 03/28/2019 K 3.9 03/28/2019 CL 104 03/28/2019 BUN 12 03/28/2019 CREATININE 0.94 03/28/2019 Lab Results Component Value Date ALT 34 03/28/2019 AST 20 03/28/2019 ALKPHOS 72 03/28/2019 BILITOT 0.7 03/28/2019 Imaging: Mammogram 01/24/19: 1. Suspicious mass within the right breast at 12:00 5 cm from the nipple. 2. Benign complicated appearing cyst within the left breast at 10:00 4 cm from the nipple. OVERALL BIRADS: 4C-HIGH SUSPICION FOR MALIGNANCY-BIOPSY IS RECOMMENDED. RECOMMENDATION: 1: Ultrasound-guided biopsy of the right breast is recommended. Pathology: Right breast Lumpectomy 02/27/19: Histologic type: Invasive ductal carcinoma, not otherwise specified Histologic (Umesh) grade: Glandular/Tubular differentiation: Score 3 Nuclear pleomorphism: Score 1 Mitotic rate: Score 1 Overall grade: Grade 1 (scores of 3, 4, or 5) Margins: Invasive carcinoma margins: Uninvolved by invasive carcinoma Distance from closest margin: Inferior margin, 2 mm DCIS margins: Uninvolved by DCIS Distance from closest margin: Inferior margin, 6 mm Pathologic Stage (AJCC 8th Ed.): pT1c pN0(sn) Procedure: Partial mastectomy Specimen laterality: Right Tumor site: 12 o'clock Tumor size: 1.9 cm Tumor focality: Single focus of invasive carcinoma Ductal carcinoma in-situ (DCIS): Present Tumor extension: Skin: Skin is not present Nipple: Nipple is not present Skeletal muscle: No skeletal muscle is present Regional lymph nodes: Uninvolved by tumor cells Number of lymph nodes examined: 4 Number of sentinel lymph nodes examined: 4 Treatment effect: No known presurgical therapy Lymphovascular invasion: Not identified Dermal lymphovascular invasion: No skin present Additional pathologic findings: None Ancillary studies: (performed on prior biopsy [id number]) ER: Positive ( 100%, 3+ intensity, resulted by image analysis) AL: Positive ( 100%, 3+ intensity, resulted by image analysis) HER2: Negative (0, resulted by image analysis) A. Lymph node(s), Axillary, [place], Right, lymphadenectomy: One lymph node, negative for malignancy (0/1). B. Lymph node(s), Axillary, [place], Right, lymphadenectomy: One lymph node, negative for malignancy (0/1). C. Breast, Right, lumpectomy: 1. Invasive ductal carcinoma. See synoptic report. 2. The margins of excision are uninvolved by tumor. D. Lymph node(s), Axillary, [place], Right, lymphadenectomy: Two lymph nodes, negative for malignancy (0/2). Assessment / plan: Ms. Harry is a 58 year old lady with a history of diabetes, GERD, HLD, PCOS, and seasonal allergies who is being seen by oncology for a new diagnosis of stage IA right breast invasive ductal carcinoma, ER/AL +, HER2/marily negative. Right breast invasive ductal carcinoma, ER/AL positive, HER-2/marily negative, pT1c pN0 Mx, Stage IA: As above, the patient is being seen for new diagnosis of right breast invasive ductal carcinoma, ERPR positive, HER-2/marily negative. This was found on a routine screening mammogram and she did not have any symptoms prior to this. She has been seen by Dr. Gee and had a right breast lumpectomy on 02/27/2019. The final pathology is as above overall stage I a, hormone positive, HER-2/marily negative. -I discussed the pathology results with the patient today. Based on NCCN guidelines, I recommended that we proceed with Oncotype DX testing to determine if she would benefit from adjuvant chemotherapy in addition to adjuvant endocrine therapy. -Her Oncotype DX testing came back with a score of 17 which is low. Based on this her absolute benefit of adjuvant chemotherapy would be less than 1%. Also, her risk of recurrence at 9 years with either an AI or tamoxifen is 5%. -I discussed the Oncotype DX testing results with her. Given this I would not recommend adjuvant chemotherapy in addition to adjuvant endocrine therapy. She was happy to hear this. -Given she had a lumpectomy, I referred her to radiation oncology to complete adjuvant radiation. She had this from 05/07/2019 to 06/05/2019. She tolerated it well overall with minimal side effects. -Today we discussed starting adjuvant endocrine therapy given her hormone positive malignancy. Given she is postmenopausal, I would recommend therapy with anastrozole 1 mg daily. We discussed the side effects including hot flashes as well as bony aches and bone density loss. She was provided with the patient handout information on the medication today. I will send anastrozole 1 mg daily to her pharmacy for her to start today. She was agreeable with this plan. -She will also need to start supplemental calcium 1200 mg daily and vitamin D 800-1000 IU daily. -Will order a DEXA scan for a baseline today. Will follow up results. Diabetes: Per patient history. She will continue to follow with her PCP for this. Hypertension: Per patient history. She will continue follow-up with her PCP for this. RTC 3 months Education Provided Education/Instructions given to: (x) Patient (_) Spouse (_) Parent (_) Other Barriers to Learning: (x) None (_) Yes (identify):_ Content: (x) Refer to note above (_)Other (identify):_ Evaluation/Outcome: (x) Verbalized understanding (_) Demonstrated understanding NCCN Guidelines Consulted: (x ) Yes ( ) No Recommendations Concordant with Guidelines: ( x ) Yes ( ) No Reason for Non-Concordance: n/a documented in this encounter* Marion Garrett MD - 09/25/2019 1:15 PM EDT [facility] Note Date of service: 09/25/2019 Referring Physician: Braden Gee MD PCP: Dereje Trejo MD Diagnosis/chief Complaint: Right breast invasive ductal carcinoma, ER/AL +, 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 Harry is here to follow-up after while on adjuvant endocrine therapy with anastrozole. She started this in May 2019. She is tolerated it well so far. She denies any hot flashes or arthralgias. She did have a bone density test which was normal. She says she has only occasional hot flashes but these are manageable. She denies any bony aches or pains. The surgery site has healed well overall. She says she notices some twinges of pain in the right axilla but this is not bad. No new medications.She denies any other new pain, fevers, chills, nausea, vomiting. HPI: Ms. Harry is a 58 year old lady with a history of diabetes, GERD, HLD, PCOS, and seasonal allergies who is being seen by oncology for a new diagnosis of stage IA right breast invasive ductal carcinoma, ER/AL +, HER2/marily negative. The patient states that she was not having any issues prior to the diagnosis. This was found on a routine screening mammogram. She says she had a mammogram last year thatwas normal. She had a mammogram at the end of December which noted a right breast lesion that was concerning for malignancy. Given this they proceeded with a biopsy which confirmed right breast invasive ductal carcinoma, ER AL positive, HER-2/marily negative. She was then referred to see Dr. Gee. They discussed surgical options and the patient elected to proceed with a right breast lumpectomy andsentinel lymph node dissection. She tolerated surgery well and is healing well from her surgery. This was performed in early February. Her final pathology shows a tumor measuring up to 1.9 cm. The sentinel lymph node were negative for malignancy. It was overall grade 1. Her final pathology shows a pT1c pN0 Mx stage I a invasive ductal carcinoma of the right breast, ER/AL positive, HER-2/marily negative. She is healing well from the surgery and she is here today to discuss next steps in her therapy. She denies any family history of breast cancer. No family history of ovarian cancer or endometrial cancer. Reproductive risk factors: Age of menarche at 17 years Age of menopause at 56 years. 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 control pills: yes. Hormone replacement therapy: yes. Caffeine intake yes History of prior breast biopsy no History of prior breast cancer no Family History : Breast cancer no Ovarian Cancer no Endometrial cancer no Family History of breast disease no ROS: General- Denies weakness, fever/chills, weight gain/loss, fatigue, change in appetite, or cold and flu symptoms HEENT: Denies hearing changes or tinnitus, vision changes, sinus pain/tenderness, nasal congestion,epistaxis, gingival bleed, sore throat, or mouth sores Cardiac; Denies CP, palpitations, dizziness, claudication, or QUINN Pulmonary- Denies SOB, wheezing, PND, or cough GI- Denies nausea and vomiting, dysphagia, heartburn, abdominal pain, diarrhea or constipation - Denies urgency, frequency, hematuria or incontinence, complains of burning when urinating Endo- Denies excessive sweating, polyuria, or polydypsia MS - Denies joint stiffness swelling, or decreased ROM, Neuro- Denies loss of consciousness, numbness or tingling Skin- Denies jaundice, rashes, or open lesions Heme- Denies night sweats, signs and symptoms of infection, easily bleeding or bruising Psych- Denies signs and symptoms of depression or suicidal thoughts Past Medical History: Diagnosis Date Breast cancer (HCC) 01/31/2019 Right-Invasive mammary carcinoma Diabetes mellitus (HCC) Elevated blood-pressure reading, without diagnosis of hypertension 01/02/2019 GERD (gastroesophageal reflux disease) Hyperlipidemia Hypertension Seasonal allergies Past Surgical History: Procedure Laterality Date APPENDECTOMY BREAST BIOPSY Right ultrasound BREAST LUMPECTOMY W/ SENTINEL NODE, NEEDLE LOC, POSS AX DIS Right 02/27/2019 Procedure: RIGHT BREAST LUMPECTOMY WITH SENTINEL NODE BIOPSY WITH NEEDLE LOCALIZATION AND POSSIBLE AXILLARY DISSECTION; Surgeon: Braden Gee MD; Location: Main OR; Service: General Surgery SECTION, CLASSIC 1996 COLONOSCOPY 05/19/2017 Normal....Dr. Blackmon D & C WITH [place] 1994 EXPLORATORY LAPAROTOMY for infertility MM NEEDLE LOCALIZATION RIGHT Right 02/27/2019 MM NEEDLE LOCALIZATION RIGHT 02/27/2019 MAMMOGRAPHY US BREAST BIOPSY RIGHT Right 01/31/2019 US BREAST BIOPSY RIGHT 01/31/2019, invasive mammary carcinoma US BREAST BIOPSY RIGHT Right 02/06/2019 US BREAST BIOPSY RIGHT Family History Problem Relation Age of Onset Heart attack Paternal Grandfather Cancer Paternal Grandmother Unknown Cancer Lung cancer Paternal Aunt Social History Socioeconomic History Marital status: Spouse name: Not on file Number of children: Not on file Years of education: Not on file Highest education level: Not on file Occupational History Not on file Social Needs Financial resource strain: Not on file Food insecurity: Worry: Not on file Inability: Not on file Transportation needs: Medical: Not on file Non-medical: Not on file Tobacco Use Smoking status: Never Smoker Smokeless tobacco: Never Used Substance and Sexual Activity Alcohol use: Not Currently Comment: SOCIALLY Drug use: No Sexual activity: Never Lifestyle Physical activity: Days per week: Not on file Minutes per session: Not on file Stress: Not on file Relationships Social connections: Talks on phone: Not on file Gets together: Not on file Attends adventism service: Not on file Active member of club or organization: Not on file Attends meetings of clubs or organizations: Not on file Relationship status: Not on file Other Topics Concern Not on file Social History Narrative Not on file Allergies Allergen Reactions Penicillins Swelling Strong family history of penicillin allergy. Current Outpatient Medications: anastrozole (ARIMIDEX) 1 mg tablet, Take 1 (one) tablet (1 mg total) by mouth daily ., Disp: 30 tablet, Rfl: 5 atorvastatin (LIPITOR) 40 MG tablet, Take 1 (one) tablet (40 mg total) by mouth daily ., Disp: 30 tablet, Rfl: 5 calcium carbonate-vitamin D3 (CALCIUM 600 + D,3,) 600 mg(1,500mg) -400 unit per tablet, Take 1 tablet by mouth 2 (two) times a day ., Disp: , Rfl: fexofenadine (LAVERNE) 180 MG tablet, Take 180 mg by mouth daily as needed ., Disp: , Rfl: lisinopril (PRINIVIL,ZESTRIL) 5 MG tablet, Take 1 (one) tablet (5 mg total) by mouth daily ., Disp:30 tablet, Rfl: 11 metFORMIN (Glucophage XR) 500 MG 24 hr tablet, Take 1 (one) tablet (500 mg total) by mouth daily with breakfast ., Disp: 30 tablet, Rfl: 5 omeprazole (PRILOSEC) 40 MG capsule, Take 1 (one) capsule (40 mg total) by mouth daily ., Disp: 30 capsule, Rfl: 11 Physical exam: ECOG PS: 0 PACU Vitals 09/25/19 1326 BP: (!) 149/88 Pulse: 86 Temp: 98.8 F (37.1 C) SpO2: 94% PainLoc: Arm General: well-appearing, no acute distress HEENT: NCAT, sclera anicteric, moist mm, o/p clear , no oral mucosal lesions Neck: supple, no supraclavicular adenopathy Lymph: no cervical, supraclavicular, or axillary LAD Chest: CTAB, no w/r/r, no respiratory distress CV: RRR, no S3 S4 gallops or murmurs Abd: soft, NT/ND, no HSM or masses, + BS Extrem: wwp, no c/c/e Skin: no rashes or lesions Neuro: alert, oriented, CN intact, speech fluent, strength full and symmetric Breast: Right breast with 3 cm horizontal incision that is located about 2 cm above the nipple, well-healed, no erythema or drainage. Mild erythema from radiation. No masses palpated in right breast.No axillary adenopathy appreciated. Left breast with no masses palpated or skin changes or nipple di scharge. No axillary adenopathy. Psych: Mood normal, Affect normal Labs: Lab Results Component Value Date WBC 4.48 (L) 02/21/2019 HGB 13.6 02/21/2019 HCT 38.9 02/21/2019 MCV 88.6 02/21/2019 PLT 159 02/21/2019 RBC 4.39 02/21/2019 Lab Results Component Value Date GLUCOSE 128 (H) 06/29/2019 CALCIUM 10.3 (H) 06/29/2019 NA 142 06/29/2019 K 4.0 06/29/2019 CL 105 06/29/2019 BUN 11 06/29/2019 CREATININE 0.99 06/29/2019 Lab Results Component Value Date ALT 34 06/29/2019 AST 16 06/29/2019 ALKPHOS 73 06/29/2019 BILITOT 0.8 06/29/2019 Imaging: DEXA 08/17/19: Normal Mammogram 01/24/19: 1. Suspicious mass within the right breast at 12:00 5 cm from the nipple. 2. Benign complicated appearing cyst within the left breast at 10:00 4 cm from the nipple. OVERALL BIRADS: 4C-HIGH SUSPICION FOR MALIGNANCY-BIOPSY IS RECOMMENDED. RECOMMENDATION: 1: Ultrasound-guided biopsy of the right breast is recommended. Pathology: Right breast Lumpectomy 02/27/19: Histologic type: Invasive ductal carcinoma, not otherwise specified Histologic ([place]) grade: Glandular/Tubular differentiation: Score 3 Nuclear pleomorphism: Score 1 Mitotic rate: Score 1 Overall grade: Grade 1 (scores of 3, 4, or 5) Margins: Invasive carcinoma margins: Uninvolved by invasive carcinoma Distance from closest margin: Inferior margin, 2 mm DCIS margins: Uninvolved by DCIS Distance from closest margin: Inferior margin, 6 mm Pathologic Stage (AJCC 8th Ed.): pT1c pN0(sn) Procedure: Partial mastectomy Specimen laterality: Right Tumor site: 12 o'clock Tumor size: 1.9 cm Tumor focality: Single focus of invasive carcinoma Ductal carcinoma in-situ (DCIS): Present Tumor extension: Skin: Skin is not present Nipple: Nipple is not present Skeletal muscle: No skeletal muscle is present Regional lymph nodes: Uninvolved by tumor cells Number of lymph nodes examined: 4 Number of sentinel lymph nodes examined: 4 Treatment effect: No known presurgical therapy Lymphovascular invasion: Not identified Dermal lymphovascular invasion: No skin present Additional pathologic findings: None Ancillary studies: (performed on prior biopsy [id number]) ER: Positive ( 100%, 3+ intensity, resulted by image analysis) AL: Positive ( 100%, 3+ intensity, resulted by image analysis) HER2: Negative (0, resulted by image analysis) A. Lymph node(s), Axillary, [place], Right, lymphadenectomy: One lymph node, negative for malignancy (0/1). B. Lymph node(s), Axillary, [place], Right, lymphadenectomy: One lymph node, negative for malignancy (0/1). C. Breast, Right, lumpectomy: 1. Invasive ductal carcinoma. See synoptic report. 2. The margins of excision are uninvolved by tumor. D. Lymph node(s), Axillary, [place], Right, lymphadenectomy: Two lymph nodes, negative for malignancy (0/2). Assessment / plan: Ms. Harry is a 58 year old lady with a history of diabetes, GERD, HLD, PCOS, and seasonal allergies who is being seen by oncology for a new diagnosis of stage IA right breast invasive ductal carcinoma, ER/AL +, HER2/marily negative. Right breast invasive ductal carcinoma, ER/AL positive, HER-2/marily negative, pT1c pN0 Mx, Stage IA: As above, the patient is being seen for new diagnosis of right breast invasive ductal carcinoma, ERPR positive, HER-2/marily negative. This was found on a routine screening mammogram and she did not have any symptoms prior to this. She has been seen by Dr. Gee and had a right breast lumpectomy on 02/27/2019. The final pathology is as above overall stage I a, hormone positive, HER-2/marily negative. -I discussed the pathology results with the patient. We proceeded with Oncotype DX testing to determine if she would benefit from adjuvant chemotherapy in addition to adjuvant endocrine therapy. -Her Oncotype DX testing came back with a score of 17 which is low. Based on this her absolute benefit of adjuvant chemotherapy would be less than 1%. Also, her risk of recurrence at 9 years with either an AI or tamoxifen is 5%. -Given her low Oncotype DX score, I would not recommend adjuvant chemotherapy in addition to adjuvant endocrine therapy. -She was referred to radiation oncology to complete adjuvant radiation. She had this from 05/07/2019to 06/05/2019. She tolerated it well overall with minimal side effects. -At last visit, we discussed starting adjuvant endocrine therapy given her hormone positive malignancy. Given she is postmenopausal, I recommended therapy with anastrozole 1 mg daily. We discussed the side effects including hot flashes as well as bony aches and bone density loss. She was provided with the patient handout information on the medication today. -She is here to follow-up and see how she is doing on adjuvant endocrine therapy with Arimidex. Shehas tolerated it well so far as above. We will plan to continue this. She will be on this for at least 5 years (through 05/2024). -She did have a DEXA scan for baseline testing and this was normal. I will have her continue supplemental calcium 1200 mg daily and vitamin D 800-1000 IU daily. -We will plan to get repeat DEXA scan in 07/2021. -She is due for follow up and screening mammogram in 12/2019. This is scheduled for 01/22/19. Elevated calcium: The patient had labs with her PCP in June 2019. Her calcium was slightly elevated at 10.3. Following that she started her supplement of calcium. I would like to recheck her calcium today and if it still elevated I would have her stop the supplemental calcium. Diabetes: Per patient history. She will continue to follow with her PCP for this. Last A1c was 6.2. Hypertension: Per patient history. She will continue follow-up with her PCP for this. RTC 4 months with mammogram prior. Education Provided Education/Instructions given to: (x) Patient (_) Spouse (_) Parent (_) Other Barriers to Learning: (x) None (_) Yes (identify):_ Content: (x) Refer to note above (_)Other (identify):_ Evaluation/Outcome: (x) Verbalized understanding (_) Demonstrated understanding NCCN Guidelines Consulted: (x ) Yes ( ) No Recommendations Concordant with Guidelines: ( x ) Yes ( ) No Reason for Non-Concordance: n/a documented in this encounter* Braden Gee MD - 04/02/2019 2:46 PM EDT [facility] PATIENT: Lyn Harry DATE / TIME: 04/02/19 2:46 PM POS: Office AGE: 59 y.o. : 1960 RACE: [1] SEX: female PCP: Dereje Trejo MD REFERRAL: No ref. provider found TOS: SUBJECTIVE: 58-year-old female female past medical history of diabetes GERD hyperlipidemia and seasonal allergies referred for abnormality seen on a recent screening mammography. Underwent a right breast ultrasound identified to have a 0.7 cm x 0.5 cm suspicious nodule. Now status post right breastultrasound-guided biopsy with confirmed invasive ductal carcinoma ER AL positive HER-2 negative, clinical stage T1 cNX MX. Now status post right needle localized lumpectomy and sentinel lymph node biopsy with a pathologic stage pT1c pN0(sn). Overall doing well since surgery. Seen last week and had seroma palpable within the right axilla. Underwent a needle aspiration and returns today for wound check and follow-up OBJECTIVE: BP (!) 141/85 Pulse 88 Temp 99.3 F (37.4 C) Wt 94.3 kg (208 lb) BMI 34.61 kg/m PE Right breast incision is intact breast incision is well-appearing. Soft no palpable hematoma present no erythema induration or drainage Right axillary incision is intact minimal fullness, some puckering of the incision with soft tissueband extending out towards the armpit Lab Results Component Value Date WBC 4.48 (L) 02/21/2019 RBC 4.39 02/21/2019 HGB 13.6 02/21/2019 HCT 38.9 02/21/2019 PLT 159 02/21/2019 No results found for: AMYLASE No results found for: LIPASE IMAGING: PATHOLOGY: Surgical Pathology Report Case: [id number] Authorizing Provider: Braden Gee MD Collected: 02/27/2019 12:38 PM Ordering Location: [facility] Periop Received: 02/27/2019 12:55 PM Pathologist: Kirby Olvera IV, MD Specimens: A) - Lymph Node, [place], Axillary, Right, [place] Lymph Node A B) - Lymph Node, [place], Axillary, Right, [place] Lymph Node B C) - Breast, Right, Right Breast Lumpectomy D) - Lymph Node, [place], Axillary, Right, Additional [place] Lymph Node Final Diagnosis Histologic type: Invasive ductal carcinoma, not otherwise specified Histologic ([place]) grade: Glandular/Tubular differentiation: Score 3 Nuclear pleomorphism: Score 1 Mitotic rate: Score 1 Overall grade: Grade 1 (scores of 3, 4, or 5) Margins: Invasive carcinoma margins: Uninvolved by invasive carcinoma Distance from closest margin: Inferior margin, 2 mm DCIS margins: Uninvolved by DCIS Distance from closest margin: Inferior margin, 6 mm Pathologic Stage (AJCC 8th Ed.): pT1c pN0(sn) Procedure: Partial mastectomy Specimen laterality: Right Tumor site: 12 o'clock Tumor size: 1.9 cm Tumor focality: Single focus of invasive carcinoma Ductal carcinoma in-situ (DCIS): Present Tumor extension: Skin: Skin is not present Nipple: Nipple is not present Skeletal muscle: No skeletal muscle is present Regional lymph nodes: Uninvolved by tumor cells Number of lymph nodes examined: 4 Number of sentinel lymph nodes examined: 4 Treatment effect: No known presurgical therapy Lymphovascular invasion: Not identified Dermal lymphovascular invasion: No skin present Additional pathologic findings: None Ancillary studies: (performed on prior biopsy [id number]) ER: Positive ( 100%, 3+ intensity, resulted by image analysis) AL: Positive ( 100%, 3+ intensity, resulted by image analysis) HER2: Negative (0, resulted by image analysis) A. Lymph node(s), Axillary, [place], Right, lymphadenectomy: One lymph node, negative for malignancy (0/1). B. Lymph node(s), Axillary, [place], Right, lymphadenectomy: One lymph node, negative for malignancy (0/1). C. Breast, Right, lumpectomy: 1. Invasive ductal carcinoma. See synoptic report. 2. The margins of excision are uninvolved by tumor. D. Lymph node(s), Axillary, [place], Right, lymphadenectomy: Two lymph nodes, negative for malignancy (0/2). ASSESSMENT: 58-year-old female female past medical history of diabetes GERD hyperlipidemia and seasonal allergies referred for abnormality seen on a recent screening mammography. Underwent a right breast ultrasound identified to have a 0.7 cm x 0.5 cm suspicious nodule. Now status post right breastultrasound-guided biopsy with confirmed invasive ductal carcinoma ER AL positive HER-2 negative, clinical stage T1 cNX MX. Now status post right needle localized lumpectomy and sentinel lymph node biopsy with a pathologic stage pT1c pN0(sn) PLAN: Patient Active Problem List Diagnosis SNOMED CT(R) Type 2 diabetes mellitus (HCC) TYPE 2 DIABETES MELLITUS Mixed hyperlipidemia MIXED HYPERLIPIDEMIA GERD without esophagitis GASTROESOPHAGEAL REFLUX DISEASE WITHOUT ESOPHAGITIS Seasonal allergies SEASONAL ALLERGY Vitamin B12 deficiency COBALAMIN DEFICIENCY Vitamin D deficiency VITAMIN D DEFICIENCY PCOS (polycystic ovarian syndrome) POLYCYSTIC OVARIES Elevated blood-pressure reading, without diagnosis of hypertension ELEVATED BLOOD-PRESSURE READING WITHOUT DIAGNOSIS OF HYPERTENSION NAFL (nonalcoholic fatty liver) NON-ALCOHOLIC FATTY LIVER Malignant neoplasm of right female breast (HCC) MALIGNANT NEOPLASM OF FEMALE BREAST Invasive ductal carcinoma of breast, female, right (HCC) INFILTRATING DUCT CARCINOMA OF RIGHT FEMALE BREAST No evidence of reaccumulation of the seroma in the right axilla. Some tethering appearing in the scar making band towards the inner arm. Encourage the patient to continue range of motion exercises tostretch that area and massage it. We will have the patient return to the office in 3 weeks for follow-up. Patient seen and evaluated by oncology awaiting Oncotype testing to determine need for adjuvant chemotherapy. If low we will proceed with whole breast radiation. documented in this encounter* Dereje Trejo MD - 07/22/2020 3:44 PM EDT Lyn Estrada Piero 1960 [id number] HPI: Patient was here today to follow-up on her chronic medical problems. Hyperlipidemia, diabetes, fatty liver, GERD: Patient has been compliant with all the prescribed medications without any significant adverse effects but has not been doing any regular aerobic exercise. No weight loss since her last office visit in September 2019. Patient denies any right upper quadrant abdominal pain denies any significant symptoms of GERD like heartburn, dyspepsia, epigastric discomfort, nausea/vomiting as long as she takes the Prilosec. Requesting refills on the prescriptions. Has been compliant with diabetic diet and her latest hemoglobin A1c was at 6.1. Her latest lipid panel showed significant worsening of the cholesterol with a latest LDL around 86. Patient has not been strictly compliant with low-fat and low-cholesterol diet and has been eating ice cream during the summer months. Patient Active Problem List Diagnosis Type 2 diabetes mellitus (HCC) Mixed hyperlipidemia GERD without esophagitis Seasonal allergies Vitamin D deficiency PCOS (polycystic ovarian syndrome) NAFL (nonalcoholic fatty liver) Invasive ductal carcinoma of breast, female, right (HCC) Essential hypertension Past Medical History: Diagnosis Date Breast cancer (HCC) 01/31/2019 Right-Invasive mammary carcinoma Diabetes mellitus (HCC) GERD (gastroesophageal reflux disease) Hyperlipidemia Hypertension Seasonal allergies Past Surgical History: Procedure Laterality Date APPENDECTOMY BREAST BIOPSY Right ultrasound BREAST LUMPECTOMY Right 02/27/2019 BREAST LUMPECTOMY W/ SENTINEL NODE, NEEDLE LOC, POSS AX DIS Right 02/27/2019 Procedure: RIGHT BREAST LUMPECTOMY WITH SENTINEL NODE BIOPSY WITH NEEDLE LOCALIZATION AND POSSIBLE AXILLARY DISSECTION; Surgeon: Braden Gee MD; Location: Main OR; Service: General Surgery SECTION, CLASSIC 1996 COLONOSCOPY 05/19/2017 Normal....Dr. Blackmon D & C WITH [place] 1994 EXPLORATORY LAPAROTOMY for infertility MM NEEDLE LOCALIZATION RIGHT Right 02/27/2019 MM NEEDLE LOCALIZATION RIGHT 02/27/2019 MAMMOGRAPHY RADIATION Right 04/2019 US BREAST BIOPSY RIGHT Right 01/31/2019 US BREAST BIOPSY RIGHT 01/31/2019, invasive mammary carcinoma US BREAST BIOPSY RIGHT Right 02/06/2019 US BREAST BIOPSY RIGHT Social History Socioeconomic History Marital status: Spouse name: Not on file Number of children: Not on file Years of education: Not on file Highest education level: Not on file Occupational History Not on file Social Needs Financial resource strain: Not on file Food insecurity Worry: Not on file Inability: Not on file Transportation needs Medical: Not on file Non-medical: Not on file Tobacco Use Smoking status: Never Smoker Smokeless tobacco: Never Used Substance and Sexual Activity Alcohol use: Not Currently Comment: SOCIALLY Drug use: No Sexual activity: Yes Partners: Male control/protection: Post-menopausal Lifestyle Physical activity Days per week: Not on file Minutes per session: Not on file Stress: Not on file Relationships Social connections Talks on phone: Not on file Gets together: Not on file Attends adventism service: Not on file Active member of club or organization: Not on file Attends meetings of clubs or organizations: Not on file Relationship status: Not on file Other Topics Concern Not on file Social History Narrative Not on file Family History Problem Relation Age of Onset Heart attack Paternal Grandfather Cancer Paternal Grandmother Unknown Cancer Lung cancer Paternal Aunt Breast cancer Neg Hx Review of Systems Constitutional: Negative for chills, diaphoresis, fatigue, fever and unexpected weight change. Respiratory: Negative for cough, shortness of breath and wheezing. Cardiovascular: Negative for chest pain, palpitations and leg swelling. Gastrointestinal: Negative for abdominal pain, blood in stool, constipation, diarrhea, nausea and vomiting. Endocrine: Negative for cold intolerance, heat intolerance, polydipsia, polyphagia and polyuria. Neurological: Negative for dizziness, light-headedness, numbness and headaches. Psychiatric/Behavioral: Negative for dysphoric mood and sleep disturbance. The patient is not nervous/anxious. Physical Exam: Vitals: 07/22/20 1522 BP: 111/75 BP Location: Left arm Patient Position: Sitting BP Cuff Size: Adult Pulse: 86 Resp: 15 Temp: 97.9 F (36.6 C) TempSrc: Infrared SpO2: 96% Weight: 92.6 kg (204 lb 3.2 oz) Height: 5' 4.5" Physical Exam Constitutional: She appears well-nourished. No distress. Neck: Carotid bruit is not present. Cardiovascular: Normal rate, regular rhythm, normal heart sounds and intact distal pulses. No murmur heard. Pulmonary/Chest: Effort normal and breath sounds normal. No respiratory distress. She has no wheezes. She has no rales. Abdominal: Soft. She exhibits no distension. There is no hepatomegaly. There is no abdominal tenderness. Musculoskeletal: General: No edema. Assessment & Plan: 1. Type 2 diabetes mellitus without complication, without long-term current use of insulin (HCC) Microalbumin/Creatinine Ratio, UR Random Hemoglobin A1c Lipid Panel Comprehensive Metabolic Panel 2. Mixed hyperlipidemia 3. NAFL (nonalcoholic fatty liver) 4. GERD without esophagitis Hyperlipidemia: Seems to be reasonably controlled with with some worsening of cholesterol, possiblysecondary to noncompliance with low-cholesterol diet. Patient was again counseled for low-fat and low-cholesterol diet and stressed on compliance. Continue same dose of statin. Diabetes: Good control and stable. Continue same medication. Encouraged for compliance with diabetic diet, regular aerobic exercise and some weight loss. Will repeat hemoglobin A1c in 3 to 4 months. Latest labs were reviewed and discussed the results in detail with her. Nonalcoholic fatty liver: Patient has not lost any weight and her BMI still continues to be in the obesity range. I have again discussed possible complications from fatty liver disease including a possible progression to liver cirrhosis. Patient was encouraged per weight loss. Appropriate BMI and weight targets were discussed. She was counseled for low calorie diet, small portion sizes, regular aerobic exercise etc. GERD: Stable with symptoms under control. Continue same medication. Prescription was refilled today. She was also counseled for proper diet and lifestyle modifications to prevent GERD. Return in about 4 months (around 11/21/2020), or if symptoms worsen or fail to improve. Patient education & instructions given for: Patient was advised to avoid smoking, alcohol. Patient was also counseled for fall precautions. Details of medical condition explained and patient/caregiver was warned about the adverse consequences of uncontrolled medical conditions. Also cautioned about possible common adverse-effects and drug interactions of prescribed/OTC medications and also OTC/herbal supplements. Patient was recommended to review the medication information pamphlets/package inserts for complete list of adverse effects/contraindications, drug interactions etc., before starting any new medication. Patient was advisedto watch for any adverse effects, and instructed to immediately discontinue the medication and callus or go to ER if experiencing any adverse affects from the medications. Advised not to drive/drinkalcohol/use heavy machinery when taking narcotic/other sedating medications. Counseling for diet and exercise provided. All the addressed problems were discussed with the patient and advice given to call with any concerns or return to the office or go to a nearby ER if the symptoms do not improve or worsen or new symptoms develop. If any referrals were placed or tests ordered at today's visit, the patient was instructed to call the office if they haven't heard anything about the scheduling of referral or tests, within 2 weeks of today's visit. Health maintenance/preventive screening reviewed / ordered: Offered age- appropriate preventive services and screening. Screening colonoscopy April 2017: Normal colonoscopy. Please note: Portions of this chart may have been created with [employer] voice recognition software. Occasional wrong-word or "sound-like" substitutions may have occurred due to inherent limitations of the voice recognition software. Please read the chart carefully and recognize, using context, where the substitutions have occurred. documented in this encounter* Marion Garrett MD - 02/17/2021 2:45 PM EDT [facility] Note Date of service: 02/17/2021 Referring Physician: Braden Gee MD PCP: Dereje Trejo MD Diagnosis/chief Complaint: Right breast invasive ductal carcinoma, ER/AL +, HER2/marily negative AJCC stage: pT1c pN0 Mx, Stage IA Date of diagnosis: 01/31/19 Goal of treatment: curative Treatment delivered: Right breast lumpectomy with SLND Reason for visit: R breast invasive ductal carcinoma Interval History: Ms. Harry is here to follow-up while on adjuvant endocrine therapy with exemestane. She initially started on therapy with Arimidex in May 2019. However at her last visit, she noted increase stiffnessin her fingers as well as trigger finger issues. She also had some tenderness in her collarbone. This was new over the last few months. Given that we had her stop the Arimidex and her symptoms were maybe a little bit better but not significantly. Despite this she still wanted to switch to exemestane in August 2020. She has tolerated this well since starting this. She still has the stiffness as well as some occasional tenderness. This really has not changed. Does not really have any major hot fl ashes otherwise. No nausea or vomiting. No fevers, chills. The axillary fullness in the right side that she noted in the fall has resolved. The ultrasound was normal. Last week she did note that her right breast became quite erythematous just out of the blue. No injuries. She did not note any majorpain. It slowly resolving on its own. She did not note any new lumps or bumps. HPI: Ms. Harry is a 58 year old lady with a history of diabetes, GERD, HLD, PCOS, and seasonal allergies who is being seen by oncology for a new diagnosis of stage IA right breast invasive ductal carcinoma, ER/AL +, HER2/marily negative. The patient states that she was not having any issues prior to the diagnosis. This was found on a routine screening mammogram. She says she had a mammogram last year thatwas normal. She had a mammogram at the end of December which noted a right breast lesion that was concerning for malignancy. Given this they proceeded with a biopsy which confirmed right breast invasive ductal carcinoma, ER AL positive, HER-2/amrily negative. She was then referred to see Dr. Gee. They discussed surgical options and the patient elected to proceed with a right breast lumpectomy andsentinel lymph node dissection. She tolerated surgery well and is healing well from her surgery. This was performed in early February. Her final pathology shows a tumor measuring up to 1.9 cm. The sentinel lymph node were negative for malignancy. It was overall grade 1. Her final pathology shows a pT1c pN0 Mx stage I a invasive ductal carcinoma of the right breast, ER/AL positive, HER-2/marily negative. She is healing well from the surgery and she is here today to discuss next steps in her therapy. She denies any family history of breast cancer. No family history of ovarian cancer or endometrial cancer. Reproductive risk factors: Age of menarche at 17 years Age of menopause at 56 years. 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 control pills: yes. Hormone replacement therapy: yes. Caffeine intake yes History of prior breast biopsy no History of prior breast cancer no Family History : Breast cancer no Ovarian Cancer no Endometrial cancer no Family History of breast disease no ROS: General- Denies weakness, fever/chills, weight gain/loss, fatigue, change in appetite, or cold and flu symptoms HEENT: Denies hearing changes or tinnitus, vision changes, sinus pain/tenderness, nasal congestion,epistaxis, gingival bleed, sore throat, or mouth sores Cardiac; Denies CP, palpitations, dizziness, claudication, or QUINN Pulmonary- Denies SOB, wheezing, PND, or cough GI- Denies nausea and vomiting, dysphagia, heartburn, abdominal pain, diarrhea or constipation - Denies urgency, frequency, hematuria or incontinence, complains of burning when urinating Endo- Denies excessive sweating, polyuria, or polydypsia MS - Denies joint stiffness swelling, or decreased ROM, Neuro- Denies loss of consciousness, numbness or tingling Skin- Denies jaundice, rashes, or open lesions Heme- Denies night sweats, signs and symptoms of infection, easily bleeding or bruising Psych- Denies signs and symptoms of depression or suicidal thoughts Past Medical History: Diagnosis Date Breast cancer (HCC) 01/31/2019 Right-Invasive mammary carcinoma Diabetes mellitus (HCC) GERD (gastroesophageal reflux disease) Hyperlipidemia Hypertension Seasonal allergies Past Surgical History: Procedure Laterality Date APPENDECTOMY BREAST BIOPSY Right 2019 BREAST LUMPECTOMY Right 02/27/2019 BREAST LUMPECTOMY W/ SENTINEL NODE, NEEDLE LOC, POSS AX DIS Right 02/27/2019 Procedure: RIGHT BREAST LUMPECTOMY WITH SENTINEL NODE BIOPSY WITH NEEDLE LOCALIZATION AND POSSIBLE AXILLARY DISSECTION; Surgeon: Braden Gee MD; Location: Main OR; Service: General Surgery SECTION, CLASSIC 1996 COLONOSCOPY 05/19/2017 Normal....Dr. Blackmon D & C WITH LEEP 1994 EXPLORATORY LAPAROTOMY for infertility MM NEEDLE LOCALIZATION RIGHT Right 02/27/2019 MM NEEDLE LOCALIZATION RIGHT 02/27/2019 MAMMOGRAPHY RADIATION Right 04/2019 US BREAST BIOPSY RIGHT Right 01/31/2019 US BREAST BIOPSY RIGHT 01/31/2019, invasive mammary carcinoma US BREAST BIOPSY RIGHT Right 02/06/2019 US BREAST BIOPSY RIGHT Family History Problem Relation Age of Onset Heart attack Paternal Grandfather Cancer Paternal Grandmother Unknown Cancer Lung cancer Paternal Aunt Breast cancer Neg Hx Social History Socioeconomic History Marital status: Spouse name: Not on file Number of children: Not on file Years of education: Not on file Highest education level: Not on file Occupational History Not on file Social Needs Financial resource strain: Not on file Food insecurity Worry: Not on file Inability: Not on file Transportation needs Medical: Not on file Non-medical: Not on file Tobacco Use Smoking status: Never Smoker Smokeless tobacco: Never Used Substance and Sexual Activity Alcohol use: Not Currently Comment: SOCIALLY Drug use: No Sexual activity: Yes Partners: Male control/protection: Post-menopausal Lifestyle Physical activity Days per week: Not on file Minutes per session: Not on file Stress: Not on file Relationships Social connections Talks on phone: Not on file Gets together: Not on file Attends adventism service: Not on file Active member of club or organization: Not on file Attends meetings of clubs or organizations: Not on file Relationship status: Not on file Other Topics Concern Not on file Social History Narrative Not on file Allergies Allergen Reactions Penicillins Swelling Strong family history of penicillin allergy. Current Outpatient Medications: atorvastatin (LIPITOR) 40 MG tablet, Take 1 (one) tablet (40 mg total) by mouth daily ., Disp: 90 tablet, Rfl: 1 calcium carbonate-vitamin D3 (CALCIUM 600 + D,3,) 600 mg(1,500mg) -400 unit per tablet, Take 1 tablet by mouth 2 (two) times a day ., Disp: , Rfl: exemestane (AROMASIN) 25 mg tablet, Take 1 (one) tablet (25 mg total) by mouth daily ., Disp: 30 tablet, Rfl: 11 lisinopriL (PRINIVIL,ZESTRIL) 5 MG tablet, Take 1 (one) tablet (5 mg total) by mouth daily ., Disp:90 tablet, Rfl: 1 metFORMIN (Glucophage XR) 500 MG 24 hr tablet, Take 1 (one) tablet (500 mg total) by mouth daily with breakfast ., Disp: 90 tablet, Rfl: 1 omeprazole (PRILOSEC) 40 MG capsule, Take 1 (one) capsule (40 mg total) by mouth daily ., Disp: 90 capsule, Rfl: 1 Physical exam: ECOG PS: 0 PACU Vitals 02/17/21 1439 BP: (!) 165/84 Pulse: 89 Temp: 97.3 F (36.3 C) SpO2: 97% General: well-appearing, no acute distress HEENT: NCAT, sclera anicteric, moist mm, o/p clear , no oral mucosal lesions Neck: supple, no supraclavicular adenopathy Lymph: no cervical, supraclavicular, or axillary LAD Chest: CTAB, no w/r/r, no respiratory distress CV: RRR, no S3 S4 gallops or murmurs Abd: soft, NT/ND, no HSM or masses, + BS Extrem: wwp, no c/c/e Skin: Slight yellow discoloration of the right breast no rashes or lesions Neuro: alert, oriented, CN intact, speech fluent, strength full and symmetric Breast: Right breast with 3 cm horizontal incision that is located about 2 cm above the nipple, well-healed, no erythema or drainage. Slight yellow discoloration of the skin of the right breast. No masses palpated in right breast. No axillary adenopathy appreciated. Left breast with no masses palpated or skin changes or nipple discharge. No axillary adenopathy. Psych: Mood normal, Affect normal Labs: Lab Results Component Value Date WBC 3.50 (L) 07/07/2020 HGB 13.6 07/07/2020 HCT 40.5 07/07/2020 MCV 92.9 07/07/2020 PLT 164 07/07/2020 RBC 4.36 07/07/2020 Lab Results Component Value Date GLUCOSE 129 (H) 07/07/2020 CALCIUM 9.7 07/07/2020 NA 142 07/07/2020 K 4.4 07/07/2020 CL 109 (H) 07/07/2020 BUN 12 07/07/2020 CREATININE 0.90 07/07/2020 Lab Results Component Value Date ALT 29 07/07/2020 AST 20 07/07/2020 ALKPHOS 74 07/07/2020 BILITOT 0.9 07/07/2020 Imaging: Screening mammogram 01/22/2021: Expected post-treatment changes in the right breast. No mammographic evidence for malignancy in either breast. BIRADS: Category 2 - Benign, no evidence of malignancy. Normal interval follow-up is recommended in 12 months. OVERALL ASSESSMENT - BENIGN Mammogram 01/22/20: No mammographic or sonographic evidence of malignancy. BIRADS - CATEGORY 2 Benign, no evidence of malignancy. Normal interval follow-up is recommended in 12 months. DEXA 08/17/19: Normal Mammogram 01/24/19: 1. Suspicious mass within the right breast at 12:00 5 cm from the nipple. 2. Benign complicated appearing cyst within the left breast at 10:00 4 cm from the nipple. OVERALL BIRADS: 4C-HIGH SUSPICION FOR MALIGNANCY-BIOPSY IS RECOMMENDED. RECOMMENDATION: 1: Ultrasound-guided biopsy of the right breast is recommended. Pathology: Right breast Lumpectomy 02/27/19: Histologic type: Invasive ductal carcinoma, not otherwise specified Histologic ([place]) grade: Glandular/Tubular differentiation: Score 3 Nuclear pleomorphism: Score 1 Mitotic rate: Score 1 Overall grade: Grade 1 (scores of 3, 4, or 5) Margins: Invasive carcinoma margins: Uninvolved by invasive carcinoma Distance from closest margin: Inferior margin, 2 mm DCIS margins: Uninvolved by DCIS Distance from closest margin: Inferior margin, 6 mm Pathologic Stage (AJCC 8th Ed.): pT1c pN0(sn) Procedure: Partial mastectomy Specimen laterality: Right Tumor site: 12 o'clock Tumor size: 1.9 cm Tumor focality: Single focus of invasive carcinoma Ductal carcinoma in-situ (DCIS): Present Tumor extension: Skin: Skin is not present Nipple: Nipple is not present Skeletal muscle: No skeletal muscle is present Regional lymph nodes: Uninvolved by tumor cells Number of lymph nodes examined: 4 Number of sentinel lymph nodes examined: 4 Treatment effect: No known presurgical therapy Lymphovascular invasion: Not identified Dermal lymphovascular invasion: No skin present Additional pathologic findings: None Ancillary studies: (performed on prior biopsy [id number]) ER: Positive ( 100%, 3+ intensity, resulted by image analysis) AL: Positive ( 100%, 3+ intensity, resulted by image analysis) HER2: Negative (0, resulted by image analysis) A. Lymph node(s), Axillary, [place], Right, lymphadenectomy: One lymph node, negative for malignancy (0/1). B. Lymph node(s), Axillary, [place], Right, lymphadenectomy: One lymph node, negative for malignancy (0/1). C. Breast, Right, lumpectomy: 1. Invasive ductal carcinoma. See synoptic report. 2. The margins of excision are uninvolved by tumor. D. Lymph node(s), Axillary, [place], Right, lymphadenectomy: Two lymph nodes, negative for malignancy (0/2). Assessment / plan: Ms. Harry is a 58 year old lady with a history of diabetes, GERD, HLD, PCOS, and seasonal allergies who is being seen by oncology for a new diagnosis of stage IA right breast invasive ductal carcinoma, ER/AL +, HER2/marily negative. Right breast invasive ductal carcinoma, ER/AL positive, HER-2/marily negative, pT1c pN0 Mx, Stage IA: The patient initially presented for her diagnosis of right breast invasive ductal carcinoma, ER AL positive, HER-2/marily negative. This was found on a routine screening mammogram and she did not have any symptoms prior to this. She had a right breast lumpectomy on 02/27/[address] Gee. The final pathology is as above overall stage I a, hormone positive, HER-2/marily negative. -I sent an Oncotype DX test on her tumor specimen and this returned with a score of 17 which is low. Based on this her absolute benefit of adjuvant chemotherapy would be less than 1%. Also, her risk of recurrence at 9 years with either an AI or tamoxifen is 5%. -Given her low Oncotype DX score, I would not recommend adjuvant chemotherapy in addition to adjuvant endocrine therapy. -She was referred to radiation oncology to complete adjuvant radiation. She had this from 05/07/2019to 06/05/2019. She tolerated it well overall with minimal side effects. -The patient would benefit from adjuvant endocrine therapy given her hormone positive malignancy. She is postmenopausal, so I recommended therapy with anastrozole 1 mg daily. We discussed the side effects including hot flashes as well as bony aches and bone density loss. -She started this in May 2019 and was initially tolerating this well but in the fall 2019 noted increased stiffness in her fingers and pain on her collarbone. We had her take a break from her Arimidex for a couple weeks to see if this improves her symptoms which it really did not however she wanted to switch to exemestane anyway. Given this we sent it to her pharmacy and she she started in August 2020. -Since starting exemestane, she has tolerated this well. She still has the joint stiffness and collarbone tenderness. This has not changed at all. No major hot flashes. We will continue this. -She should continue endocrine therapy for at least 5 years, through 05/2024. -She had a DEXA scan for baseline testing and this was normal. She will have her continue supplemental calcium 1200 mg daily and vitamin D 800-1000 IU daily. -We will plan to get repeat DEXA scan in 07/2021. Ordered today. -She had a screening mammogram on 01/22/2021 which noted posttreatment changes that were expected inthe right breast and no evidence for malignancy in either breast. A 12-month follow-up was recommended. Ordered today. Right breast erythema: Unclear etiology. This is resolving on its own and appears yellowish in nature on her skin today like a resolving bruise. No findings on exam. She will see Dr. Gee today as well so we will get her opinion. Otherwise will monitor. Joint stiffness: We had her stop her Arimidex to see if this improves. It did not really improve but she still wanted to try exemestane. She has not noticed any changes with this. This is likely unrelated to her exemestane or Arimidex and could be related to arthritis. I instructed her to follow-upwith her PCP for this. Neck fullness: The patient noted neck fullness in the center of her neck above her collarbone. Thisfeels like soft tissue but we will get an ultrasound of her thyroid and neck to assess this. Elevated calcium: Resolved. Her labs from last fall showed a normal calcium. Will monitor. Diabetes: Per patient history. She will continue to follow with her PCP for this. Last A1c was 6.2. Hypertension: Per patient history. She will continue follow-up with her PCP for this. RTC 6 months for eval on therapy Education Provided Education/Instructions given to: (x) Patient (_) Spouse (_) Parent (_) Other Barriers to Learning: (x) None (_) Yes (identify):_ Content: (x) Refer to note above (_)Other (identify):_ Evaluation/Outcome: (x) Verbalized understanding (_) Demonstrated understanding NCCN Guidelines Consulted: (x ) Yes ( ) No Recommendations Concordant with Guidelines: ( x ) Yes ( ) No Reason for Non-Concordance: n/a documented in this encounter* Braden Gee MD - 02/17/2021 4:11 PM EDT [facility] PATIENT: Lyn Harry DATE / TIME: 02/17/21 4:11 PM POS: Office AGE: 60 y.o. : 1960 RACE: [1] SEX: female PCP: Dereje Trejo MD REFERRAL: No ref. provider found TOS: SUBJECTIVE: 58-year-old female female past medical history of diabetes GERD hyperlipidemia and seasonal allergies referred for abnormality seen on a recent screening mammography. Underwent a right breast ultrasound identified to have a 0.7 cm x 0.5 cm suspicious nodule. Now status post right breastultrasound-guided biopsy with confirmed invasive ductal carcinoma ER AL positive HER-2 negative, clinical stage T1 cNX MX. Now status post right needle localized lumpectomy and sentinel lymph node biopsy with a pathologic stage pT1c pN0(sn) (02/27/2019). Completed her course of radiation currently taking anastrozole. -Underwent surveillance mammography in December 2020 with stability within the right breast, postoperative changes read as BI-RADS 2 Reports a history of approximately 1 week ago after showering of noticing purple discoloration in the right breast. Is mainly around the nipple areolar complex. Patient able to show photo and purplish hue present of the overlying skin. Reports that this lasted approximately 2 days and slowly resolved. OBJECTIVE: There were no vitals taken for this visit. PE Right axilla: No significant adenopathy on palpation No cervical lymphadenopathy present Right breast incision is intact breast incision is well-appearing. Minor dimpling of the right breast skin compared to the left secondary to radiation. Overall breast is soft without significant nodularity or palpable mass. Overall hue of the skin as a slightly yellowed hue almost like resolving ecchymosis Left breast no palpable masses in all 4 quadrants. Nipple appears normal with no retraction. No fluid expressible. Left axilla without any palpable lymph nodes. Lab Results Component Value Date WBC 3.50 (L) 07/07/2020 RBC 4.36 07/07/2020 HGB 13.6 07/07/2020 HCT 40.5 07/07/2020 PLT 164 07/07/2020 No results found for: AMYLASE No results found for: LIPASE IMAGING: Surveillance mammography 01/22/2021 FINDINGS: Postsurgical changes are seen in the central-upper right breast. There is some calcified fat necrosis in the lumpectomy bed. Breasts are of scattered fibroglandular composition bilaterally. No developing masses or microcalcifications in either breast. No suspicious findings. IMPRESSION: Expected post-treatment changes in the right breast. No mammographic evidence for malignancy in either breast. BIRADS: Category 2 - Benign, no evidence of malignancy. Normal interval follow-up is recommended in 12 months. PATHOLOGY: Surgical Pathology Report Case: [id number] Authorizing Provider: Braden Gee MD Collected: 02/27/2019 12:38 PM Ordering Location: [facility] Periop Received: 02/27/2019 12:55 PM Pathologist: Kirby Olvera IV, MD Specimens: A) - Lymph Node, [place], Axillary, Right, [place] Lymph Node A B) - Lymph Node, [place], Axillary, Right, [place] Lymph Node B C) - Breast, Right, Right Breast Lumpectomy D) - Lymph Node, [place], Axillary, Right, Additional [place] Lymph Node Final Diagnosis Histologic type: Invasive ductal carcinoma, not otherwise specified Histologic ([place]) grade: Glandular/Tubular differentiation: Score 3 Nuclear pleomorphism: Score 1 Mitotic rate: Score 1 Overall grade: Grade 1 (scores of 3, 4, or 5) Margins: Invasive carcinoma margins: Uninvolved by invasive carcinoma Distance from closest margin: Inferior margin, 2 mm DCIS margins: Uninvolved by DCIS Distance from closest margin: Inferior margin, 6 mm Pathologic Stage (AJCC 8th Ed.): pT1c pN0(sn) Procedure: Partial mastectomy Specimen laterality: Right Tumor site: 12 o'clock Tumor size: 1.9 cm Tumor focality: Single focus of invasive carcinoma Ductal carcinoma in-situ (DCIS): Present Tumor extension: Skin: Skin is not present Nipple: Nipple is not present Skeletal muscle: No skeletal muscle is present Regional lymph nodes: Uninvolved by tumor cells Number of lymph nodes examined: 4 Number of sentinel lymph nodes examined: 4 Treatment effect: No known presurgical therapy Lymphovascular invasion: Not identified Dermal lymphovascular invasion: No skin present Additional pathologic findings: None Ancillary studies: (performed on prior biopsy [id number]) ER: Positive ( 100%, 3+ intensity, resulted by image analysis) AL: Positive ( 100%, 3+ intensity, resulted by image analysis) HER2: Negative (0, resulted by image analysis) A. Lymph node(s), Axillary, [place], Right, lymphadenectomy: One lymph node, negative for malignancy (0/1). B. Lymph node(s), Axillary, [place], Right, lymphadenectomy: One lymph node, negative for malignancy (0/1). C. Breast, Right, lumpectomy: 1. Invasive ductal carcinoma. See synoptic report. 2. The margins of excision are uninvolved by tumor. D. Lymph node(s), Axillary, [place], Right, lymphadenectomy: Two lymph nodes, negative for malignancy (0/2). ASSESSMENT: 58-year-old female female past medical history of diabetes GERD hyperlipidemia and seasonal allergies referred for abnormality seen on a recent screening mammography. Underwent a right breast ultrasound identified to have a 0.7 cm x 0.5 cm suspicious nodule. Now status post right breastultrasound-guided biopsy with confirmed invasive ductal carcinoma ER AL positive HER-2 negative, clinical stage T1 cNX MX. Now status post right needle localized lumpectomy and sentinel lymph node biopsy with a pathologic stage pT1c pN0(sn) (February 2019). Status post completion full breast and axillary radiation. PLAN: Patient Active Problem List Diagnosis Controlled type 2 diabetes mellitus with stage 2 chronic kidney disease, without long-term current use of insulin (HCC) Hypertriglyceridemia Gastroesophageal reflux disease without esophagitis Seasonal allergies Vitamin D deficiency PCO (polycystic ovaries) Fatty liver Invasive ductal carcinoma of breast, female, right (HCC) Essential hypertension Trigger finger History of right breast invasive ductal carcinoma, pT1c pN0(sn). Status post lumpectomy and sentinel lymph node biopsy (February 2019) and completion of her radiation. Tolerating anastrozole well. Surveillance mammogram January 2021 stable, BI-RADS 2 2 years now postop I will see her in in 1 year for continued surveillance at time of her mammograms. Encouraged her to continue to observe the skin of the right breast and if she has recurrence of that dark red hue to call our office when she has the symptoms so that a punch biopsy of the skin can be performed. Total time 21 minutes, greater than 50% was spent [id number] with the patient obtaining an updated history, performing an exam and coordinating care documented in this encounter* Braden Gee MD - 03/08/2019 3:21 PM EDT [facility] PATIENT: Lyn Harry DATE / TIME: 03/08/19 3:21 PM POS: Office AGE: 58 y.o. : 1960 RACE: [1] SEX: female PCP: Dereje Trejo MD REFERRAL: No ref. provider found TOS: SUBJECTIVE: 58-year-old female female past medical history of diabetes GERD hyperlipidemia and seasonal allergies referred for abnormality seen on a recent screening mammography. Underwent a right breast ultrasound identified to have a 0.7 cm x 0.5 cm suspicious nodule. Now status post right breastultrasound-guided biopsy with confirmed invasive ductal carcinoma ER AL positive HER-2 negative, clinical stage T1 cNX MX. Now status post right needle localized lumpectomy and sentinel lymph node biopsy with a pathologic stage pT1c pN0(sn). Overall doing well since surgery. Reports some swelling and tenderness underneath the right axilla. Denies any significant drainage from either incision. No fevers or chills. OBJECTIVE: BP (!) 142/85 (BP Location: Left arm, Patient Position: Sitting, BP Cuff Size: Adult) Pulse 92 Temp 99 F (37.2 C) (Oral) Ht 5' 5" Wt 96.2 kg (212 lb 1.6 oz) SpO2 94% BMI 35.30 kg/m PE Right breast incision is intact mild ecchymosis in the dependent portion of the breast incision is well-appearing glue remains present. Soft no palpable hematoma present no erythema induration or drainage Right axillary incision is intact fullness present underneath the incision with some fluctuance. Noerythema. Needle aspiration performed in clinic with 40 mL's of serosanguineous fluid Lab Results Component Value Date WBC 4.48 (L) 02/21/2019 RBC 4.39 02/21/2019 HGB 13.6 02/21/2019 HCT 38.9 02/21/2019 PLT 159 02/21/2019 No results found for: AMYLASE No results found for: LIPASE IMAGING: PATHOLOGY: Surgical Pathology Report Case: [id number] Authorizing Provider: Braden Gee MD Collected: 02/27/2019 12:38 PM Ordering Location: [facility] Periop Received: 02/27/2019 12:55 PM Pathologist: Kirby Olvera IV, MD Specimens: A) - Lymph Node, [place], Axillary, Right, [place] Lymph Node A B) - Lymph Node, [place], Axillary, Right, [place] Lymph Node B C) - Breast, Right, Right Breast Lumpectomy D) - Lymph Node, [place], Axillary, Right, Additional [place] Lymph Node Final Diagnosis Histologic type: Invasive ductal carcinoma, not otherwise specified Histologic (Umesh) grade: Glandular/Tubular differentiation: Score 3 Nuclear pleomorphism: Score 1 Mitotic rate: Score 1 Overall grade: Grade 1 (scores of 3, 4, or 5) Margins: Invasive carcinoma margins: Uninvolved by invasive carcinoma Distance from closest margin: Inferior margin, 2 mm DCIS margins: Uninvolved by DCIS Distance from closest margin: Inferior margin, 6 mm Pathologic Stage (AJCC 8th Ed.): pT1c pN0(sn) Procedure: Partial mastectomy Specimen laterality: Right Tumor site: 12 o'clock Tumor size: 1.9 cm Tumor focality: Single focus of invasive carcinoma Ductal carcinoma in-situ (DCIS): Present Tumor extension: Skin: Skin is not present Nipple: Nipple is not present Skeletal muscle: No skeletal muscle is present Regional lymph nodes: Uninvolved by tumor cells Number of lymph nodes examined: 4 Number of sentinel lymph nodes examined: 4 Treatment effect: No known presurgical therapy Lymphovascular invasion: Not identified Dermal lymphovascular invasion: No skin present Additional pathologic findings: None Ancillary studies: (performed on prior biopsy [id number]) ER: Positive ( 100%, 3+ intensity, resulted by image analysis) AL: Positive ( 100%, 3+ intensity, resulted by image analysis) HER2: Negative (0, resulted by image analysis) A. Lymph node(s), Axillary, [place], Right, lymphadenectomy: One lymph node, negative for malignancy (0/1). B. Lymph node(s), Axillary, [place], Right, lymphadenectomy: One lymph node, negative for malignancy (0/1). C. Breast, Right, lumpectomy: 1. Invasive ductal carcinoma. See synoptic report. 2. The margins of excision are uninvolved by tumor. D. Lymph node(s), Axillary, [place], Right, lymphadenectomy: Two lymph nodes, negative for malignancy (0/2). ASSESSMENT: 58-year-old female female past medical history of diabetes GERD hyperlipidemia and seasonal allergies referred for abnormality seen on a recent screening mammography. Underwent a right breast ultrasound identified to have a 0.7 cm x 0.5 cm suspicious nodule. Now status post right breastultrasound-guided biopsy with confirmed invasive ductal carcinoma ER AL positive HER-2 negative, clinical stage T1 cNX MX. Now status post right needle localized lumpectomy and sentinel lymph node biopsy with a pathologic stage pT1c pN0(sn) PLAN: Patient Active Problem List Diagnosis SNOMED CT(R) Type 2 diabetes mellitus (HCC) TYPE 2 DIABETES MELLITUS Mixed hyperlipidemia MIXED HYPERLIPIDEMIA GERD without esophagitis GASTROESOPHAGEAL REFLUX DISEASE WITHOUT ESOPHAGITIS Seasonal allergies SEASONAL ALLERGY Vitamin B12 deficiency COBALAMIN DEFICIENCY Vitamin D deficiency VITAMIN D DEFICIENCY PCOS (polycystic ovarian syndrome) POLYCYSTIC OVARIES Elevated blood-pressure reading, without diagnosis of hypertension ELEVATED BLOOD-PRESSURE READING WITHOUT DIAGNOSIS OF HYPERTENSION NAFL (nonalcoholic fatty liver) NON-ALCOHOLIC FATTY LIVER Malignant neoplasm of right female breast (HCC) MALIGNANT NEOPLASM OF FEMALE BREAST Invasive ductal carcinoma of breast, female, right (HCC) INFILTRATING DUCT CARCINOMA OF RIGHT FEMALE BREAST Pathology reviewed with the patient as above. Will place a oncology referral for Dr. Marion Garrett for discussion of need for further adjuvant chemo therapy and Oncotype testing versus radiation and endocrine therapy alone. Aspiration of what appears to be a seroma of the right axilla completed. Will have patient return to my office in 1 week for observance of the right axillary incision. in this encounter* Izabella Lopez RN - 02/21/2019 2:40 PM EDT I met with the patient in presurgical testing and gave her the [employer] book and the Caregiver book from [facility]. I answered questions concerning the needle localization and sentinel lymph node injection. States understanding, support provided. in this encounter* Braden Gee MD - 06/11/2019 9:35 AM EDT [facility] PATIENT: Lyn Harry DATE / TIME: 06/11/19 9:36 AM POS: Office AGE: 59 y.o. : 1960 RACE: [1] SEX: female PCP: Dereje Trejo MD REFERRAL: No ref. provider found TOS: SUBJECTIVE: 58-year-old female female past medical history of diabetes GERD hyperlipidemia and seasonal allergies referred for abnormality seen on a recent screening mammography. Underwent a right breast ultrasound identified to have a 0.7 cm x 0.5 cm suspicious nodule. Now status post right breastultrasound-guided biopsy with confirmed invasive ductal carcinoma ER AL positive HER-2 negative, clinical stage T1 cNX MX. Now status post right needle localized lumpectomy and sentinel lymph node biopsy with a pathologic stage pT1c pN0(sn). Overall doing well since surgery. Has completed her course of radiation and returns today for follow-up. OBJECTIVE: BP (!) 163/94 Pulse 86 Temp 98.6 F (37 C) (Oral) Wt 91.6 kg (202 lb) SpO2 96% BMI 33.61 kg/m PE Bilateral axilla without any palpable adenopathy No cervical lymphadenopathy present Right breast incision is intact breast incision is well-appearing. Darkening of the right breast skin compared to the left secondary to radiation. Scar tissue palpable underneath the right scar no significant mass present. Right axillary incision is intact. Skin darkening and slough from radiation present mild fullness no fluid fluctuance Left breast no palpable masses in all 4 quadrants. Nipple appears normal with no retraction. No fluid expressible. Left axilla without any palpable lymph nodes. Lab Results Component Value Date WBC 4.48 (L) 02/21/2019 RBC 4.39 02/21/2019 HGB 13.6 02/21/2019 HCT 38.9 02/21/2019 PLT 159 02/21/2019 No results found for: AMYLASE No results found for: LIPASE IMAGING: PATHOLOGY: Surgical Pathology Report Case: [id number] Authorizing Provider: Braden Gee MD Collected: 02/27/2019 12:38 PM Ordering Location: [facility] Peri Received: 02/27/2019 12:55 PM Pathologist: Kirby Olvera IV, MD Specimens: A) - Lymph Node, [place], Axillary, Right, [place] Lymph Node A B) - Lymph Node, [place], Axillary, Right, [place] Lymph Node B C) - Breast, Right, Right Breast Lumpectomy D) - Lymph Node, [place], Axillary, Right, Additional [place] Lymph Node Final Diagnosis Histologic type: Invasive ductal carcinoma, not otherwise specified Histologic (Umesh) grade: Glandular/Tubular differentiation: Score 3 Nuclear pleomorphism: Score 1 Mitotic rate: Score 1 Overall grade: Grade 1 (scores of 3, 4, or 5) Margins: Invasive carcinoma margins: Uninvolved by invasive carcinoma Distance from closest margin: Inferior margin, 2 mm DCIS margins: Uninvolved by DCIS Distance from closest margin: Inferior margin, 6 mm Pathologic Stage (AJCC 8th Ed.): pT1c pN0(sn) Procedure: Partial mastectomy Specimen laterality: Right Tumor site: 12 o'clock Tumor size: 1.9 cm Tumor focality: Single focus of invasive carcinoma Ductal carcinoma in-situ (DCIS): Present Tumor extension: Skin: Skin is not present Nipple: Nipple is not present Skeletal muscle: No skeletal muscle is present Regional lymph nodes: Uninvolved by tumor cells Number of lymph nodes examined: 4 Number of sentinel lymph nodes examined: 4 Treatment effect: No known presurgical therapy Lymphovascular invasion: Not identified Dermal lymphovascular invasion: No skin present Additional pathologic findings: None Ancillary studies: (performed on prior biopsy [id number]) ER: Positive ( 100%, 3+ intensity, resulted by image analysis) AL: Positive ( 100%, 3+ intensity, resulted by image analysis) HER2: Negative (0, resulted by image analysis) A. Lymph node(s), Axillary, [place], Right, lymphadenectomy: One lymph node, negative for malignancy (0/1). B. Lymph node(s), Axillary, [place], Right, lymphadenectomy: One lymph node, negative for malignancy (0/1). C. Breast, Right, lumpectomy: 1. Invasive ductal carcinoma. See synoptic report. 2. The margins of excision are uninvolved by tumor. D. Lymph node(s), Axillary, [place], Right, lymphadenectomy: Two lymph nodes, negative for malignancy (0/2). ASSESSMENT: 58-year-old female female past medical history of diabetes GERD hyperlipidemia and seasonal allergies referred for abnormality seen on a recent screening mammography. Underwent a right breast ultrasound identified to have a 0.7 cm x 0.5 cm suspicious nodule. Now status post right breastultrasound-guided biopsy with confirmed invasive ductal carcinoma ER AL positive HER-2 negative, clinical stage T1 cNX MX. Now status post right needle localized lumpectomy and sentinel lymph node biopsy with a pathologic stage pT1c pN0(sn). Status post completion full breast and axillary radiation. PLAN: Patient Active Problem List Diagnosis SNOMED CT(R) Type 2 diabetes mellitus (HCC) TYPE 2 DIABETES MELLITUS Mixed hyperlipidemia MIXED HYPERLIPIDEMIA GERD without esophagitis GASTROESOPHAGEAL REFLUX DISEASE WITHOUT ESOPHAGITIS Seasonal allergies SEASONAL ALLERGY Vitamin D deficiency VITAMIN D DEFICIENCY PCOS (polycystic ovarian syndrome) POLYCYSTIC OVARY SYNDROME NAFL (nonalcoholic fatty liver) NON-ALCOHOLIC FATTY LIVER Invasive ductal carcinoma of breast, female, right (HCC) INFILTRATING DUCT CARCINOMA OF RIGHT FEMALE BREAST Essential hypertension ESSENTIAL HYPERTENSION History of right breast invasive ductal carcinoma, pT1c pN0(sn). Status post lumpectomy and sentinel lymph node biopsy and now upon completion of her radiation. Follow-up with oncology next week for discussion of adjuvant endocrine therapy with either aromatase inhibitor or tamoxifen. We will have the patient return to my office in December after a diagnostic right breast mammogram and screening left breast mammography. documented in this encounter* Izabella Lopez RN - 04/10/2019 2:09 PM EDT The patient denies any issues, healing well from surgery, sees Dr.K. Garrett next week to find out Oncotype score, support provided documented in this encounter* Dereje Trejo MD - 03/03/2021 4:59 PM EDT Lyn Estrada Piero 1960 [id number] HPI: Patient was here today to follow-up on her chronic medical problems. She brought in some of the lab test results that were done recently in January 2021 at her work. Diabetes, hyperlipidemia: Patient has been compliant with the prescribed medications without any significant adverse effects and also has been compliant with diabetic diet. She has not been doing anyregular aerobic exercise. No weight loss since her last visit here. Her latest hemoglobin A1c is slightly worse than the previous one at 6.4. She has been compliant with low-fat and low- cholesterol diet and her latest lipid panel showed good control of the cholesterol with an LDL around 75 though slightly low HDL. Patient's recent labs from January also showed hypercalcemia with a calcium level at 11.0. Patient iscurrently taking calcium and vitamin D supplements. Patient Active Problem List Diagnosis Gastroesophageal reflux disease without esophagitis Seasonal allergies Vitamin D deficiency PCO (polycystic ovaries) Fatty liver Invasive ductal carcinoma of breast, female, right (HCC) Essential hypertension Trigger finger Type 2 diabetes mellitus without complication, without long-term current use of insulin (HCC) Mixed hyperlipidemia Past Medical History: Diagnosis Date Breast cancer (HCC) 01/31/2019 Right-Invasive mammary carcinoma Diabetes mellitus (HCC) GERD (gastroesophageal reflux disease) Hyperlipidemia Hypertension Seasonal allergies Past Surgical History: Procedure Laterality Date APPENDECTOMY BREAST BIOPSY Right 2019 BREAST LUMPECTOMY Right 02/27/2019 BREAST LUMPECTOMY W/ SENTINEL NODE, NEEDLE LOC, POSS AX DIS Right 02/27/2019 Procedure: RIGHT BREAST LUMPECTOMY WITH SENTINEL NODE BIOPSY WITH NEEDLE LOCALIZATION AND POSSIBLE AXILLARY DISSECTION; Surgeon: Braden Gee MD; Location: Main OR; Service: General Surgery SECTION, CLASSIC 1996 COLONOSCOPY 05/19/2017 Normal....Dr. Blackmon D & C WITH LEEP 1994 EXPLORATORY LAPAROTOMY for infertility MM NEEDLE LOCALIZATION RIGHT Right 02/27/2019 MM NEEDLE LOCALIZATION RIGHT 02/27/2019 MAMMOGRAPHY RADIATION Right 04/2019 US BREAST BIOPSY RIGHT Right 01/31/2019 US BREAST BIOPSY RIGHT 01/31/2019, invasive mammary carcinoma US BREAST BIOPSY RIGHT Right 02/06/2019 US BREAST BIOPSY RIGHT Social History Socioeconomic History Marital status: Spouse name: Not on file Number of children: Not on file Years of education: Not on file Highest education level: Not on file Occupational History Not on file Social Needs Financial resource strain: Not on file Food insecurity Worry: Not on file Inability: Not on file Transportation needs Medical: Not on file Non-medical: Not on file Tobacco Use Smoking status: Never Smoker Smokeless tobacco: Never Used Substance and Sexual Activity Alcohol use: Not Currently Comment: SOCIALLY Drug use: No Sexual activity: Yes Partners: Male control/protection: Post-menopausal Lifestyle Physical activity Days per week: Not on file Minutes per session: Not on file Stress: Not on file Relationships Social connections Talks on phone: Not on file Gets together: Not on file Attends adventism service: Not on file Active member of club or organization: Not on file Attends meetings of clubs or organizations: Not on file Relationship status: Not on file Other Topics Concern Not on file Social History Narrative Not on file Family History Problem Relation Age of Onset Heart attack Paternal Grandfather Cancer Paternal Grandmother Unknown Cancer Lung cancer Paternal Aunt Breast cancer Neg Hx Review of Systems Constitutional: Negative for chills, diaphoresis, fatigue, fever and unexpected weight change. Respiratory: Negative for cough, shortness of breath and wheezing. Cardiovascular: Negative for chest pain, palpitations and leg swelling. Gastrointestinal: Negative for abdominal pain, blood in stool, constipation, diarrhea, nausea and vomiting. Endocrine: Negative for polydipsia, polyphagia and polyuria. Neurological: Negative for dizziness, light-headedness, numbness and headaches. Physical Exam: Vitals: 03/03/21 1632 BP: 125/81 Pulse: 80 Resp: 18 Temp: 97.3 F (36.3 C) TempSrc: Infrared SpO2: 96% Weight: 92.9 kg (204 lb 12.8 oz) Height: 5' 5" Physical Exam Constitutional: She appears well-nourished. No distress. Neck: Carotid bruit is not present. Cardiovascular: Normal rate, regular rhythm, normal heart sounds and intact distal pulses. No murmur heard. Pulmonary/Chest: Effort normal and breath sounds normal. No respiratory distress. She has no wheezes. She has no rales. Abdominal: Soft. She exhibits no distension. There is no hepatomegaly. There is no abdominal tenderness. Musculoskeletal: General: No edema. Assessment & Plan: 1. Type 2 diabetes mellitus without complication, without long-term current use of insulin (HCC) Microalbumin/Creatinine Ratio, UR Random 2. Mixed hyperlipidemia 3. Hypercalcemia Comprehensive Metabolic Panel 4. Vitamin D deficiency Vitamin D, Total, 25-OH Hyperlipidemia: Seems to be under control based on latest lipid panel. Continue same dose of statin. Encouraged for compliance with low-fat and low-cholesterol diet. Prescriptions were refilled today. Diabetes: Still seems to be under control based on latest hemoglobin A1c though some worsening. Continue same medication. Encouraged for compliance with diabetic diet, regular exercise and weight loss. Latest labs were reviewed and discussed in detail with patient. Discussed hypercalcemia on her recent labs, possible etiology and complications from hypercalcemia.Ordered repeat lab test to check on the calcium level. If calcium level still elevated, will consider stopping the calcium and vitamin D supplements and see if hypercalcemia would improve. Also ordered a vitamin D level. Return in about 3 months (around 06/02/2021), or if symptoms worsen or fail to improve. Patient education & instructions given for: Advised patient about possible common adverse-effects from the medications, but also recommended to review the medication information package inserts for complete list of adverse effects/contraindications, drug interactions etc., before starting any new medication. Patient was also advised to immediately discontinue the medication and notify us or go to a nearby ER if experiencing any severe adverse affects from the medications. All the addressed problems were discussed with the patient and advice given to call with any concerns or return to theoffice or go to a nearby ER if the symptoms do not improve or worsen or new symptoms develop. If any referrals were placed or tests ordered at today's visit, the patient was instructed to call the office if they are not notified about the scheduling of referral or tests, within 2 weeks of today's visit. Health maintenance/preventive screening reviewed / ordered: Offered age- appropriate preventive services and screening. Screening colonoscopy April 2017: Normal colonoscopy. Please note: Portions of this chart may have been created with [employer] voice recognition software. Occasional wrong-word or "sound-like" substitutions may have occurred due to inherent limitations of the voice recognition software. Please read the chart carefully and recognize, using context, where the substitutions have occurred. documented in this encounter Assessments Diagnosis Type 2 diabetes mellitus without complication, without long-term current use of insulin (HCC)- Primary Mixed hyperlipidemia NAFL (nonalcoholic fatty liver) Other chronic nonalcoholic liver disease Elevated blood-pressure reading, without diagnosis of hypertension Need for hepatitis C screening test Special screening examination for other specified viral diseases Breast cancer screening Breast screening, unspecified Diagnosis Abnormal mammogram of right breast- Primary Diagnosis Invasive ductal carcinoma of breast, female, right (HCC)- Primary Diagnosis Malignant neoplasm of right female breast, unspecified estrogen receptor status, unspecified site of breast (HCC) Diagnosis Malignant neoplasm of right female breast, unspecified estrogen receptor status, unspecified site of breast (HCC) Diagnosis Invasive ductal carcinoma of breast, female, right (HCC)- Primary Mixed hyperlipidemia Elevated blood-pressure reading, without diagnosis of hypertension Diagnosis Invasive ductal carcinoma of breast, female, right (HCC)- Primary Diagnosis Type 2 diabetes mellitus without complication, without long-term current use of insulin (HCC)- Primary Essential hypertension Unspecified essential hypertension GERD without esophagitis Esophageal reflux Invasive ductal carcinoma of breast, female, right (HCC) Diagnosis Invasive ductal carcinoma of breast, female, right (HCC)- Primary Type 2 diabetes mellitus without complication, without long-term current use of insulin (HCC) Essential hypertension Unspecified essential hypertension Diagnosis Invasive ductal carcinoma of breast, female, right (HCC) Diagnosis Essential hypertension- Primary Unspecified essential hypertension Mixed hyperlipidemia GERD without esophagitis Esophageal reflux Diagnosis Invasive ductal carcinoma of breast, female, right (HCC)- Primary Counseling on health promotion and disease prevention Other specified counseling Diagnosis Type 2 diabetes mellitus without complication, without long-term current use of insulin ([facility])- Primary Essential hypertension Unspecified essential hypertension Invasive ductal carcinoma of breast, female, right (HCC) Vitamin D deficiency Diagnosis Bilateral otitis media, unspecified otitis media type Upper respiratory tract infection, unspecified type Flu-like symptoms Elevated blood pressure reading in office with diagnosis of hypertension Diagnosis Invasive ductal carcinoma of breast, female, right (HCC) Diagnosis Invasive ductal carcinoma of breast, female, right (HCC) Low libido Type 2 diabetes mellitus without complication, without long-term current use of insulin ([facility]) Diagnosis Trigger thumb of right hand Diagnosis Trigger finger of left thumb Diagnosis Axillary fullness- Primary Invasive ductal carcinoma of breast, female, right (HCC) Diagnosis Invasive ductal carcinoma of breast, female, right (HCC)- Primary Trigger finger, unspecified finger, unspecified laterality Type 2 diabetes mellitus without complication, without long-term current use of insulin ([facility]) Diagnosis Axillary fullness Diagnosis Invasive ductal carcinoma of breast, female, right (HCC)- Primary Diagnosis Invasive ductal carcinoma of breast, female, right (HCC)- Primary Essential hypertension Unspecified essential hypertension Diagnosis Malignant neoplasm of right female breast, unspecified estrogen receptor status, unspecified site of breast (HCC) Breast cancer (HCC) Malignant neoplasm of breast (female), unspecified site Diagnosis Rib pain on right side Diagnosis Post-operative pain- Primary Other acute postoperative pain Diagnosis Type 2 diabetes mellitus without complication, without long-term current use of insulin ([facility])- Primary Mixed hyperlipidemia NAFL (nonalcoholic fatty liver) Other chronic nonalcoholic liver disease GERD without esophagitis Esophageal reflux Diagnosis Invasive ductal carcinoma of breast, female, right (HCC)- Primary Erythema of breast Neck swelling Swelling, mass, or lump in head and neck Diagnosis Invasive ductal carcinoma of breast, female, right (HCC)- Primary Diagnosis Invasive ductal carcinoma of breast, female, right (HCC)- Primary Diagnosis Malignant neoplasm of right female breast, unspecified estrogen receptor status, unspecified site of breast (HCC)- Primary Diagnosis Neck swelling Swelling, mass, or lump in head and neck Diagnosis Invasive ductal carcinoma of breast, female, right (HCC) Diagnosis Type 2 diabetes mellitus without complication, without long-term current use of insulin ([facility])- Primary Mixed hyperlipidemia Hypercalcemia Vitamin D deficiency Instructions * Patient Instructions* Josh Tanjalori AllenEmir, [employer] ADVISOR - 02/21/2019 1:30 PM EDT Preoperative Medication Instructions In preparation for surgery please continue all of your current medications with the following changes: Lyn Harry Home Medication Instructions Prior to Surgery GAVIN:[id number] Printed on:02/21/19 0396 Medication Information Take last dose on Take the morning of surgery Comment(s) aspirin 81 MG EC tablet Take 1 (one) tablet (81 mg total) by mouth daily. HOLD as directed by surgeon atorvastatin (LIPITOR) 40 MG tablet Take 1 (one) tablet (40 mg total) by mouth daily. cholecalciferol, vitamin D3, 2,000 unit cap Take 6,000 Units by mouth . cyanocobalamin (vitamin B-12) 500 MCG tablet Take 500 mcg by mouth daily . fexofenadine (LAVERNE) 180 MG tablet Take 180 mg by mouth daily as needed . lisinopril (PRINIVIL,ZESTRIL) 2.5 MG tablet Take 1 (one) tablet (2.5 mg total) by mouth daily. metFORMIN (GLUCOPHAGE XR) 500 MG 24 hr tablet Take 1 (one) tablet (500 mg total) by mouth daily with breakfast. omeprazole (PRILOSEC) 40 MG capsule Take 1 (one) capsule (40 mg total) by mouth daily. TAKE morning of surgery with sip of water STOP ( medications that contain aspirin, such as Claudia [place], Pepto-Bismol, Anacin), antiinflammatory medications such as Advil, Motrin, Ibuprofen, Naproxen, Aleve, Claudia [place], Pepto-Bismol, Anacin, Diclofenac, Voltaren, Daypro, Etodolac, Ketoprofen, Piroxicam, Relafen, Nabumetone, etc. Also disc ontinue Vitamin C, Vitamin E, Sanborn-3 Fatty Acid, Fish Oil or Lovaza, and all herbal medications ASDIRECTED BY SURGEON. Tylenol (acetaminophen) is acceptable(unless you have an allergy to this medication ), but be careful to follow the label directions and do not use with other pain medications. On the morning of surgery, with as little water as possible, ONLY take the medications listed abovein the column "Take the morning of surgery." If you are using Eye Drops or Inhalers, please bring them to the hospital. Patient Instructions for [facility]: Prior to surgery: Surgeon's office will contact you with the scheduled time of your surgery. You may use the Assistant Spa Manager parking available at the Main Entrance One family member may accompany you back into the Pre-Op Area. Do not eat or drink anything after midnight or as directed, including gum, mints, and cough drops. No smoking after midnight. No alcohol 24 hours prior to your surgery. Please take any medications you have been instructed to take the morning of your surgery with smallsips of water. Please be sure to wear comfortable, appropriate clothing. Please remove all jewelry and piercing's, including wedding rings. Leave all valuable items at home. Shower using anti-bacterial soap or as advised by your Surgeon's office Do not apply any makeup or lotions. Remove all nail cymraes for surgeries involving extremities. Please remember to bring both your insurance card and a photo ID with you on the day of surgery. After your surgery: If you are having outpatient surgery - you must have a licensed local company refrigerated truck driver to take you home. The expectation is that this local company refrigerated truck driver will remain at the hospital for the duration of your procedure. You are advised to have a family member with you for at least 24 hours after being under Anesthesia. If you have sleep apnea and have a CPAP/BIPAP device, please bring it with you the day of surgery. in this encounter* Patient Instructions* Fany Rivero RN - 03/14/2019 10:52 AM EDT 1. We will send Oncotype testing on pathology sample. 2. Follow up in 2 1/2 weeks. documented in this encounter* Patient Instructions* Fany Rivero RN - 04/17/2019 1:42 PM EDT 1. Referral was placed to Radiation Oncology 2. Follow up in 2 months documented in this encounter* Patient Instructions* Shannan Calzada CNP - 09/21/2019 4:14 PM EDT Age-appropriate health screenings reviewed with patient: Mammogram 12/30/2018, then annually Bone density 08/16/2019 with T score of -0.3 indicating normal results Recommend Calcium 1200 mg (total diet plus supplement) daily and Vitamin D 800 IU daily Colonoscopy 05/19/2017 Recommend annual influenza vaccination - Recommend Prevnar 13 pneumococcal vaccination after age 65, or ages 14-64 if immunocompromised -This is a one-time vaccination -This should be given 1 year prior to pneumococcal vaccination with PPSV 23 Recommend pneumococcal vaccination with PPSV 23 -No additional dose of PPSV 23 is indicated if you were vaccinated at or after age 65 - If you received PPSV 23 before age 65, you should receive a one-time revaccination 5 years after your first PPSV 23 dose -Recommend at least 1 dose of Tdap vaccination, which protects against tetanus and Pertussis Recommend Shingrex (Shingles) vaccination after age 60, or 50 years of age if immunocompromised - This is a two-step vaccination. The second dose is given two to six months after the first Recommend moderate-intensity exercise for 150 minutes a week such as walking briskly (3 miles per hour or faster, but not race-walking), Water aerobics, Bicycling slower than 10 miles per hour, Tennis (doubles) ,Ballroom dancing, General gardening Suggested Area Support Available [facility] Wellness Exercise Program - call the [facility] [phone] [employer] exercise program at [facility] -call Ramírez Dickerson at [phone] extension [phone] for more information Grocery market tour for education on healthy eating with [facility] patient education, call [phone] to schedule appointment [facility] breast cancer support group -meet third Tuesday of every month at 12 noon and radiation therapy building. Call Jennifer Lopez, breast nurse navigator at [phone] for more information [employer] - Call Zoya Scanlon at [phone] for more information documented in this encounter* Patient Instructions* Shayna Alcazar CNP - 01/12/2020 11:26 AM EST Ear Infection (Otitis Media): Care Instructions Your Care Instructions An ear infection may start with a cold and affect the middle ear (otitis media). It can hurt a lot.Most ear infections clear up on their own in a couple of days. Most often you will not need antibiotics. This is because many ear infections are caused by a virus. Antibiotics don't work against a virus. Regular doses of pain medicines are the best way to reduce your fever and help you feel better. Follow-up care is a sharma part of your treatment and safety. Be sure to make and go to all appointments, and call your doctor if you are having problems. It's also a good idea to know your test resultsand keep a list of the medicines you take. How can you care for yourself at home? Take pain medicines exactly as directed. ? If the doctor gave you a prescription medicine for pain, take it as prescribed. ? If you are not taking a prescription pain medicine, take an jxgp-jrp-zwkqlnz medicine, such as acetaminophen (Tylenol), ibuprofen (Advil, Motrin), or naproxen (Aleve). Read and follow all instructions on the label. ? Do not take two or more pain medicines at the same time unless the doctor told you to. Many pain medicines have acetaminophen, which is Tylenol. Too much acetaminophen (Tylenol) can be harmful. Plan to take a full dose of pain reliever before bedtime. Getting enough sleep will help you get better. Try a warm, moist washcloth on the ear. It may help relieve pain. If your doctor prescribed antibiotics, take them as directed. Do not stop taking them just because you feel better. You need to take the full course of antibiotics. When should you call for help? Call your doctor now or seek immediate medical care if: You have new or increasing ear pain. You have new or increasing pus or blood draining from your ear. You have a fever with a stiff neck or a severe headache. Watch closely for changes in your health, and be sure to contact your doctor if: You have new or worse symptoms. You are not getting better after taking an antibiotic for 2 days. Where can you learn more? Log into your personal health record on [email or web address] and enter X558 in the "Education" box to learn more about "Ear Infection (Otitis Media): Care Instructions." Current as of: June 24, 2019 Content Version: 12.3 [employer]oud. Care instructions adapted under license by your healthcare professional. If you have questions about a medical condition or this instruction, always ask your healthcare professional. [employer] disclaims any warranty or liability for your use of this information. Upper Respiratory Infection (Cold): Care Instructions Your Care Instructions An upper respiratory infection, or URI, is an infection of the nose, sinuses, or throat. URIs are spread by coughs, sneezes, and direct contact. The common cold is the most frequent kind of URI. The flu and sinus infections are other kinds of URIs. Almost all URIs are caused by viruses. Antibiotics won't cure them. But you can treat most infections with home care. This may include drinking lots of fluids and taking oiba-vum-wlcgfwt pain medicine. You will probably feel better in 4 to 10 days. The doctor has checked you carefully, but problems can develop later. If you notice any problems ornew symptoms, get medical treatment right away. Follow-up care is a sharma part of your treatment and safety. Be sure to make and go to all appointments, and call your doctor if you are having problems. It's also a good idea to know your test resultsand keep a list of the medicines you take. How can you care for yourself at home? To prevent dehydration, drink plenty of fluids, enough so that your urine is light yellow or clear like water. Choose water and other caffeine-free clear liquids until you feel better. If you have kidney, heart, or liver disease and have to limit fluids, talk with your doctor before you increase the amount of fluids you drink. Take an gldk-zly-gfhjqpy pain medicine, such as acetaminophen (Tylenol), ibuprofen (Advil, Motrin),or naproxen (Aleve). Read and follow all instructions on the label. Before you use cough and cold medicines, check the label. These medicines may not be safe for youngchildren or for people with certain health problems. Be careful when taking waji-mgd-pbfbrni cold or flu medicines and Tylenol at the same time. Many ofthese medicines have acetaminophen, which is Tylenol. Read the labels to make sure that you are nottaking more than the recommended dose. Too much acetaminophen (Tylenol) can be harmful. Get plenty of rest. Do not smoke or allow others to smoke around you. If you need help quitting, talk to your doctor about stop-smoking programs and medicines. These can increase your chances of quitting for good. When should you call for help? Call 911 anytime you think you may need emergency care. For example, call if: You have severe trouble breathing. Call your doctor now or seek immediate medical care if: You seem to be getting much sicker. You have new or worse trouble breathing. You have a new or higher fever. You have a new rash. Watch closely for changes in your health, and be sure to contact your doctor if: You have a new symptom, such as a sore throat, an earache, or sinus pain. You cough more deeply or more often, especially if you notice more mucus or a change in the color of your mucus. You do not get better as expected. Where can you learn more? Log into your personal health record on [email or web address] and enter K520 in the "Education" box to learn more about "Upper Respiratory Infection (Cold): Care Instructions." Current as of: May 06, 2019 Content Version: 12.3 4191-2519 Qloud. Care instructions adapted under license by your healthcare professional. If you have questions about a medical condition or this instruction, always ask your healthcare professional. [employer]oud disclaims any warranty or liability for your use of this information. Follow up in three to five days if unimproved. Go to the Emergency Department if symptoms worsen. documented in this encounter* Patient Instructions* Marion Garrett MD - 08/19/2020 3:00 PM EDT Please try stopping the arimidex for 2 weeks. If your joints are feeling better, then call us and we can send [facility]. If the joint issues are not better, then it is unlikely due to the arimidex so I recommend you continue to take the arimidex. Please call us to let us know how you are doing after the 2 week break. documented in this encounter* Patient Instructions* Marion Garrett MD - 06/19/2019 1:17 PM EDT 1. Start taking supplemental calcium 1200 mg daily and vitamin D 800-1000 IU daily. documented in this encounter* Patient Instructions* Fany Rivero RN - 09/25/2019 1:50 PM EDT 1. Please stop at the lab on the main floor and have your blood drawn before leaving today. 2. Return to clinic in 4 months. documented in this encounter Chief Complaint and Reason for Visit Chief Complaint Admit Date PARATHYROID 2ND OPINION July 26 2:05pm INT LABSPEC August 02, 2025 9:55am Reason for Visit Admit Date Elevated parathyroid hormone June 2:05pm Low vitamin D level July 26, 2025 2: 05pm Serum calcium elevated July 26, 2025 2:05pm Chief Complaint Admit Date PARATHYROID 2ND OPINION July 26 2:05pm Chief Complaint Admit Date PARATHYROID 2ND OPINION July 26 2:05pm INT LABSPEC August 02, 2025 9:55am LAB RESULTS, DISCUSS FURTHER STEPS Octob 2024 2:14pm E ORDERS September 12, 2025 3 :25pm Reason for Visit Admit Date Elevated parathyroid hormone June 2:05pm Low vitamin D level July 26, 2025 2: 05pm Serum calcium elevated July 26, 2025 2:05pm Elevated parathyroid hormone August 2:14pm Low vitamin D level September 12, 2025 2 :14pm Serum calcium elevated September 12 2:14pm Additional Source Comments INFORMATION SOURCE (unrecogn ized section and content) DATE CREATED AUTHOR 05/16/2018 [facility] DATE CREATED AUTHOR AUTHOR'S ORGANIZ ATION 02/07/2019 [facility] DATE CREATED AUTHOR AUTHOR'S ORGANIZ ATION 04/09/2021 [facility] DATE CREATED AUTHOR AUTHOR'S ORGANIZ ATION 06/09/2022 [facility] DATE CREATED AUTHOR AUTHOR'S ORGANIZ ATION 08/20/2023 [facility] DATE CREATED AUTHOR AUTHOR'S ORGANIZ ATION 06/18/2024 [facility] DATE CREATED AUTHOR AUTHOR'S ORGANIZ ATION 10/18/2024 [facility] DATE CREATED AUTHOR AUTHOR'S ORGANIZ ATION 07/03/2025 [facility] DATE CREATED AUTHOR AUTHOR'S ORGANIZ ATION 09/20/2025 [facility] DATE CREATED AUTHOR AUTHOR'S ORGANIZ ATION [facility] DATE CREATED AUTHOR AUTHOR'S ORGANIZ ATION 10/02/2025 [facility] Reason for Visit (unrecogniz ed section and content) Reason Comments Breast Cancer Follow up Status Reason Specialty Diagnoses / Procedures Referre d By Contact Referred To Contact Reason Comments Breast Cancer right sided Reason Comments Follow-up F/U on chronic medic al problems Reason Comments Consult abnormal mammo Reason Comments Follow-up discuss surgery opti ons Status Reason Specialty Diagnoses / Procedures Referred By Contact Referred To Contact Pending Review Radiology Diagnoses Malignant neoplasm of right female breast, unspecified estrogen receptor status, unspecified site of breast (HCC) Procedures NM Lymphoscintigram NM [place] Nodes Injection Only Braden Gee MD [address] [place] [address] Reason Comments Breast Cancer NEW CONSULT DR ZIA Carrillo Status Reason Specialty Diagnoses / Procedures Referred By Contact Referred To Contact Closed Hematology/Oncol og y / Oncology Diagnoses Invasive ductal carcinoma of breast, female, right (HCC) Braden Gee MD [address] [place] [address] Marion Garrett MD [address] [place] [address] Reason Comments Follow-up one week recheck rig ht axillary incision Reason Comments Follow-up F/U on chronic medic al problems Reason Comments Breast Cancer Reason Comments Breast Cancer Status Reason Specialty Diagnoses / Procedures Referred By Contact Referred To Contact Authorized Radiation Oncology Diagnoses Invasive ductal carcinoma of breast, female, right (HCC) Marion Garrett MD [address] [place] [address] Leno Pelletier MD [address] [place] [address] Status Reason Specialty Diagnoses / Procedures Referre d By Contact Referred To Contact Reason Comments Breast Cancer right Reason Comments Breast Cancer suvivorship Reason Comments Follow-up F/U chronic medical problems Reason Comments Cough x1 week Sore Throat Otalgia Status Reason Specialty Diagnoses / Procedures Referred By Contact Referred To Contact Pending Review Radiology Diagnoses Invasive ductal carcinoma of breast, female, right (HCC) Procedures Mammography Diagnostic Geovanny Bilateral Mammography Diagnostic Right Braden Gee MD [address] [place] [address] [place] [id number] Reason Comments Follow-up seven month breast c heck, mammo Reason Comments Breast Cancer 4 mo f/u Reason Comments Pain Joint Pain Reason Comments Pain Injections Reason Comments Follow-up six month breast olimpia ck Reason Comments Breast Cancer 7 wk Status Reason Specialty Diagnoses / Procedures Referred By Contact Referred To Contact New Request Radiology Diagnoses Axillary fullness Procedures US Axilla Only Right (Breast Related) Braden Gee MD [address] [place] [address] Reason Onset Date Comments Medication Refill 12/09/2020 Reason Comments Breast Cancer 2 MTH Reason Comments Breast Cancer 3mth Status Reason Specialty Diagnoses / Procedures Referre d By Contact Referred To Contact Diagnoses Malignant neoplasm of right female breast, unspecified estrogen receptor status, unspecified site of breast (HCC) Malignant neoplasm of right female breast, unspecified estrogen receptor status, unspecified site of breast (HCC) [C50.911] Procedures right needle localized lumpectomy and sentinel lymph node biopsy Braden Gee MD [address] [place] [phone] Status Reason Specialty Diagnoses / Procedures Referre d By Contact Referred To Contact Closed Radiology Diagnoses Invasive ductal carcinoma of breast, female, right (HCC) Procedures Mammography Screening Geovanny Bilateral Marion Garrett MD [address] [place] [address] Reason Comments Follow-up lump at surgical sit e Reason Comments Breast Cancer f/u Reason Comments Follow-up six month breast olimpia ck Reason Comments Post Op RIGHT LUMPECTOMY 02/27 Reason Comments Follow-up Breast biopsy Status Reason Specialty Diagnoses / Procedures Referred By Contact Referred To Contact New Request Radiology Diagnoses Neck swelling Procedures US Soft Tissue Neck and Thyroid Marion Garrett MD [address] [place] [address] Status Reason Specialty Diagnoses / Procedures Referre d By Contact Referred To Contact Closed Radiology Diagnoses Invasive ductal carcinoma of breast, female, right (HCC) Procedures XR Bone Density DEXA Axial and Appendicular Marion Garrett MD [address] [place] [address] Reason Onset Date Comments Medication Refill 02/26/2021 Reason Comments Follow-up radiation complete Reason Comments Reason Comments Sore Throat scratchy, itchy x 6 days, both ears full, sinus pressure, cough, Reason Comments New Patient Rt. trigger thumb Status Reason Specialty Diagnoses / Procedures Referre d By Contact Referred To Contact Diagnoses Trigger thumb of right hand Trigger thumb of right hand [M65.311] Procedures AL INCISE FINGER TENDON SHEATH INCISION TENDON SHEATH FINGER HAND Chiquis Vargas MD [address] [place] [address] Reason Comments Follow-up S/PO right thumb A-1 Santana release - OR 06/04/21 (2w) Reason Comments Covid-19 Screening Patient does not hav e direct exposure- notes her son works with a person who tested positive, son himself also has loss of taste but refuses to be tested. Symptoms started 07/24/21 with scratchy throat, headache. Patient states cough started today along with low grade fever. Reason Comments Breast Cancer f/u Reason Comments Diarrhea Rib Pain Right rib pain Reason Comments Breast Cancer F/u Reason Onset Date Comments Medication Refill 02/24/2022 Reason Comments Chemotherapy Specialty Diagnoses / Procedures Referred By Contac t Referred To Contact Infusion Therapy Diagnoses Invasive ductal carcinoma of breast, female, right (HCC) Procedures AL DENOSUMAB INJECTION Pratik Riley MD [address] [place] [address] [place] [address] Oncology In[address] [place] [phone] Referral ID Status Reason Start Date Expiration Date V isits Requested Visits Authorized [id number] Authorized 09/07/2021 09/07/2022 2 2 Reason Onset Date Comments Medication Refill 04/25/2022 Reason Comments Sore Throat Pt with c/o SORE THR OAT, Left ear fullness/pain x 1 week Reason Comments Abdominal Pain Reason Comments Consult Gallbladder consult, nausea , vomitting CT scan 07/12 Specialty Diagnoses / Procedures Referred By Contac t Referred To Contact General Surgery Diagnoses Nausea and vomiting, unspecified vomiting type Diarrhea, unspecified type Calculus of gallbladder without cholecystitis without obstruction Dereje Trejo MD [address] [place] [address] Braden Gee MD [address] [facility] [place] [address] [address] Referral ID Status Reason Start Date Expiration Date Visits Re quested Visits Authorized [id number] Closed 07/19/2022 07/19/2023 1 1 Reason Comments Establish Care Labs Reason Comments Follow-up cholecystectomy Reason Comments Annual Exam Gap Closure (Health Maintenance) Foot Ex am due on 10/12/2020Urine Microalbumin due on 03/04/2022 Reason Comments Breast Cancer 9 MTH Reason Comments Follow-up 3 month f/u Gap Closure (Health Maintenance) Urine M icroalbumin due on 03/04/2022 Reason Onset Date Comments Medication Refill 01/24/2023 Reason Onset Date Comments Medication Refill 03/03/2023 Specialty Diagnoses / Procedures Referred By Contac t Referred To Contact Infusion Therapy Diagnoses Malignant neoplasm of unspecified site of right female breast Procedures AL DENOSUMAB INJECTION Marion Garrett MD [address] [place] [address] Oncology Infusion [address] [place] [address] Referral ID Status Reason Start Date Expiration Date Visits Re quested Visits Authorized [id number] Closed 09/07/2022 09/07/2023 2 2 Reason Comments Follow-up 3 month f/u and disc uss recent lab work. Gap Closure (Health Maintenance) Pneumoc occal Vaccine: Ped or At-Risk(2 - PCV) due on 11/30/2018COVID-19 Vaccine(4 - Booster) due on 01/22/2022 Reason Comments Sinus Congestion Cough Specialty Diagnoses / Procedures Referred By Contac t Referred To Contact Oncology / Infusion Therapy Diagnoses Malignant neoplasm of unspecified site of right female breast PROLIA SCD Procedures AL INJECTION, DENOSUMAB, 1 MG INJECTION ExtenMarion MD [address] [place] [address] Oncology Infusion [address] [place] [address] Referral ID Status Reason Start Date Expiration Date V isits Requested Visits Authorized [id number] Authorized 08/30/2023 08/28/2024 2 2 Reason Comments Annual Exam Pap Reason Comments 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 Reason Comments Annual Exam Already got flu shot -No pap Reason Comments New Pt Ear ringing right New pt Specialty Diagnoses / Procedures Referred By Contact Referred To Contact Otolaryngology (ENT) / Otolaryngology Diagnoses Ear ringing, right Melvi, Elo Camejo MD [address] [address] Phone: tel: fax: Sebas Lee CNP [address] [address] Phone: tel:[phone] fax:[phone] Referral ID Status Reason Start Date Expiration Date Visits Re quested Visits Authorized [id number] Closed 10/24/2024 10/24/2025 1 1 Reason Comments Breast Cancer Reason Comments Consult hypothyroidism Specialty Diagnoses / Procedures Referred By Contac t Referred To Contact General Surgery Diagnoses Hypothyroidism, unspecified type Elo Ogden MD [address] [address] Phone: tel: fax: Braden Gee MD [address] [facility] [place] [address] [address] Phone: tel: fax: Referral ID Status Reason Start Date Expiration Date Visits Re quested Visits Authorized [id number] Closed 05/21/2025 11/27/2025 1 1 Reason Comments Follow-up US neck, parathyroid Reason Comments Hx Cancer Breast cancer FHx Cancer Pancreatic cancer Specialty Diagnoses / Procedures Referred By Quoc t Referred To Contact Genetics Diagnoses Invasive ductal carcinoma of breast, female, right (HCC) Family history of pancreatic cancer Shannan Calzada, JS [address] [place] [address] Phone: tel:[phone] fax: [facility] Phone: tel: fax: Referral ID Status Reason Start Date Expiration Date V isits Requested Visits Authorized [id number] Closed Specialty Services Required/Prerna ent's Best Interest 05/20/2025 11/27/2025 1 1 Reason Onset Date Comments Results 09/05/2025 Genetic Test Res Tanja Tate, JS - 02/21/2019 1:30 PM EDT Consult Notes (unrecognized section and content) ANESTHESIA PREPROCEDURE EVALUATION Physical Exam Airway Mallampati: II TM Distance: >3 FB Neck ROM: full Mouth opening: >[address]: no Cardiovascular - normal Pulmonary - normal Neurological - normal Dental Dental exam is normal and age appropriate Review of Systems / Medical History - History of anesthetic complications (PONV) Pulmonary - negative Neurological / Psychological - negative Cardiovascular Positive: hyperlipidemia Gastrointestinal / Hepatic / Renal Positive: well controlled, GERD and liver disease (NAFL) Endocrine / Musculoskeletal Positive: type 2 diabetes obesity Other Positive: cancer (above-invasive ductal, ER AL positive HER-2 negative clinical stage T1 cNX MX- right breast) in this encounter Pre-Procedure Instructions - Bre Hawkins RN - 02/21/2019 2:01 PM EDT Miscellaneous Notes (unrecog nized section and content) Preoperative Medication Instructions In preparation for surgery please continue all of your current medications with the following changes: Lyn Harry Home Medication Instructions Prior to Surgery GAVIN:[id number] Printed on:02/21/19 1401 Medication Information Take last dose on Take the morning of surgery Comment(s) aspirin 81 MG EC tablet Take 1 (one) tablet (81 mg total) by mouth daily. atorvastatin (LIPITOR) 40 MG tablet Take 1 (one) tablet (40 mg total) by mouth daily. cholecalciferol, vitamin D3, 2,000 unit cap Take 6,000 Units by mouth . cyanocobalamin (vitamin B-12) 500 MCG tablet Take 500 mcg by mouth daily . fexofenadine (LAVERNE) 180 MG tablet Take 180 mg by mouth daily as needed . lisinopril (PRINIVIL,ZESTRIL) 2.5 MG tablet Take 1 (one) tablet (2.5 mg total) by mouth daily. metFORMIN (GLUCOPHAGE XR) 500 MG 24 hr tablet Take 1 (one) tablet (500 mg total) by mouth daily with breakfast. omeprazole (PRILOSEC) 40 MG capsule Take 1 (one) capsule (40 mg total) by mouth daily. STOP ( medications that contain aspirin, such as Claudia Seattle, Pepto-Bismol, Anacin), antiinflammatory medications such as Advil, Motrin, Ibuprofen, Naproxen, Aleve, Claudia Seattle, Pepto-Bismol, Anacin, Diclofenac, Voltaren, Daypro, Etodolac, Ketoprofen, Piroxicam, Relafen, Nabumetone, etc. Also discontinue Vitamin C, Vitamin E, Sanborn-3 Fatty Acid, Fish Oil or Lovaza, and all herbal medications DIRECTED BY SURGEON. Tylenol (acetaminophen) is acceptable(unless you have an allergy to this medication ), but be careful to follow the label directions and do not use with other pain medications. On the morning of surgery, with as little water as possible, ONLY take the medications listed above in the column "Take the morning of surgery." If you are using Eye Drops or Inhalers, please bring them to the hospital. Patient Instructions for [facility]: Prior to surgery: Surgeon's office will contact you with the scheduled time of your surgery. You may use the [employer] parking available at the Main Entrance One family member may accompany you back into the Pre-Op Area. Do not eat or drink anything after midnight or as directed, including gum, mints, and cough drops. No smoking after midnight. No alcohol 24 hours prior to your surgery. Please take any medications you have been instructed to take the morning of your surgery with small sips of water. Please be sure to wear comfortable, appropriate clothing. Please remove all jewelry and piercing's, including wedding rings. Leave all valuable items at home. Shower using anti-bacterial soap or as advised by your Surgeon's office Do not apply any makeup or lotions. Remove all nail cymraes for surgeries involving extremities. Please remember to bring both your insurance card and a photo ID with you on the day of surgery. After your surgery: If you are having outpatient surgery - you must have a licensed local company refrigerated truck driver to take you home. The expectation is that this local company refrigerated truck driver will remain at the hospital for the duration of your procedure. You are advised to have a family member with you for at least 24 hours after being under Anesthesia. If you have sleep apnea and have a CPAP/BIPAP device, please bring it with you the day of surgery. [place] this encounter Braden Gee MD - 02/05/2019 1:41 PM EDT H&P Notes (unrecognized sect ion and content) BREAST CONSULT HISTORY & PHYSICAL EXAMINATION Patient Name: Lyn Harry MR #: [id number] : 1960 Physicians: Dereje Trejo MD (Family); No ref. provider found (Referring) Subjective: 58-year-old female with below history seen for an abnormal right mammogram. Status post ultrasound-guided right breast biopsy returns today for discussion of pathology. History of Present Illness: The patient is a 58 y.o. female past medical history of diabetes GERD hyperlipidemia and seasonal allergies referred for abnormality seen on a recent screening mammography. Patient states that she has been getting regular mammograms not quite on an annual basis but had one a year ago. Denies any previous abnormal mammograms and denies any previous biopsy. On this most recent mammogram she was noted to have a persistent asymmetry in the right breast and a cystic-like lesion in the left breast. On spot compression imaging on the right breast her architectural distortion did not disperse and a nodule was identified on her right breast ultrasound. She denies any palpable mass in the right breast. No nipple retraction or drainage. Denies family history of breast cancer and no history of ovarian or endometrial cancer. Risk Factors Age of menarche at 17 years Age of menopause at 56 years. 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 control pills: yes. Hormone replacement therapy: yes. Caffeine intake yes History of prior breast biopsy no History of prior breast cancer no Family History : Breast cancer no Ovarian Cancer no Endometrial cancer no Family History of breast disease no History: I have reviewed the PMHx, PSHx, SHx, FHx in EMR with the patient during this encounter face to face and patient agrees with the documentation Past Medical History: Diagnosis Date Breast cancer (HCC) 01/31/2019 Right-Invasive mammary carcinoma Diabetes mellitus (HCC) GERD (gastroesophageal reflux disease) Hyperlipidemia Obesity Seasonal allergies Past Surgical History: Procedure Laterality Date APPENDECTOMY SECTION, CLASSIC 1996 COLONOSCOPY 05/19/2017 Normal....Dr. Blackmon D & C WITH ADELAIDE 1994 EXPLORATORY LAPAROTOMY for infertility BREAST BIOPSY RIGHT Right 01/31/2019 US BREAST BIOPSY RIGHT 01/31/2019, invasive mammary carcinoma Family History Problem Relation Age of Onset Aneurysm Father Heart attack Paternal Grandfather Cancer Paternal Grandmother Social History Socioeconomic History Marital status: Spouse name: Not on file Number of children: Not on file Years of education: Not on file Highest education level: Not on file Social Needs Financial resource strain: Not on file Food insecurity - worry: Not on file Food insecurity - inability: Not on file Transportation needs - medical: Not on file Transportation needs - non-medical: Not on file Occupational History Not on file Tobacco Use Smoking status: Never Smoker Smokeless tobacco: Never Used Substance and Sexual Activity Alcohol use: Not Currently Comment: SOCIALLY Drug use: No Sexual activity: Not on file Other Topics Concern Not on file Social History Narrative Not on file Allergy Information: I have reviewed the patient's allergies. Penicillins and Nsaids (non-steroidal anti-inflammatory drug) Home Medications: Outpatient Medications as of 02/05/2019 Medication Sig aspirin 81 MG EC tablet Take 1 (one) tablet (81 mg total) by mouth daily. atorvastatin (LIPITOR) 40 MG tablet Take 1 (one) tablet (40 mg total) by mouth daily. cholecalciferol, vitamin D3, 2,000 unit cap Take 6,000 Units by mouth . cyanocobalamin (vitamin B-12) 500 MCG tablet Take 500 mcg by mouth daily . fexofenadine (LAVERNE) 180 MG tablet Take 180 mg by mouth daily as needed . lisinopril (PRINIVIL,ZESTRIL) 2.5 MG tablet Take 1 (one) tablet (2.5 mg total) by mouth daily. metFORMIN (GLUCOPHAGE XR) 500 MG 24 hr tablet Take 1 (one) tablet (500 mg total) by mouth daily with breakfast. omeprazole (PRILOSEC) 40 MG capsule Take 1 (one) capsule (40 mg total) by mouth daily. Review of Systems: Review of Systems Constitutional: Negative. HENT: Negative. Eyes: Negative. Respiratory: Negative. Cardiovascular: Negative. Gastrointestinal: Negative. Endocrine: Negative. Genitourinary: Negative. Musculoskeletal: Negative. Skin: Negative. Allergic/Immunologic: Negative. Neurological: Negative. Hematological: Negative. Psychiatric/Behavioral: Negative. Physical Examination: Vital Signs: BP (!) 142/92 Pulse (!) 101 Temp 98.4 F (36.9 C) Wt 98.9 kg (218 lb) BMI 36.84 kg/m Physical Exam Constitutional: She is oriented to person, place, and time. She appears well-developed and well-nourished. HENT: Head: Normocephalic. Eyes: Pupils are equal, round, and reactive to light. Neck: Normal range of motion. Cardiovascular: Normal rate. Pulmonary/Chest: Effort normal. Right breast exhibits no inverted nipple, no mass, no nipple discharge, no skin change and no tenderness. Left breast exhibits no inverted nipple, no mass, no nipple discharge, no skin change and no tenderness. Breasts are symmetrical. Abdominal: Soft. She exhibits no distension. Musculoskeletal: Normal range of motion. She exhibits no edema. Lymphadenopathy: She has no cervical adenopathy. She has no axillary adenopathy. Neurological: She is alert and oriented to person, place, and time. Skin: Skin is warm and dry. Laboratory and Additional Data Reviewed: Laboratory 02/05/19 1:41 PM Imaging Accession No. [id number] Performed: Jan 24 2019 3:01PM Examination: MAMMOGRAM BILAT DIAGNOS, DIGITAL EXAM: MAMMOGRAM BILAT DIAGNOS, DIGITAL, US BREAST, UNILATERAL LIMITED RIGHT, US BREAST, UNILATERAL LIMITED LEFT CLINICAL STATEMENT: Abnormality seen on screening mammogram. COMPARISONS: Mammogram dated 01/19/2019 TECHNIQUE: CC and MLO spot compression views and ML view of the right and left breast. Targeted bilateral breast ultrasound. DENSITY: There are scattered fibroglandular densities. FINDINGS MAMMOGRAM: The previously described architectural distortion identified within the right breast central to the nipple posterior depth seen on the CC view only persists on the spot compression CC view. The architectural distortion is not appreciated on the lateral views of the right breast. The previously described round asymmetry within the medial aspect of the left breast on the CC view only is again identified on the additional mammographic images and is located at 9-10 o'clock. FINDINGS ULTRASOUND: Targeted right breast ultrasound was performed at 12:00. An irregular hypoechoic mass is identified at 12:00 5 cm from the nipple measuring 0.3 x 0.7 x 0.5 cm. No vascularity identified. This mass corresponds with mammography. The right axilla is normal. Targeted left breast ultrasound was performed at 10:00. A complicated appearing cyst is identified at 10:00 4 cm from the nipple measuring 0.9 x 0.3 x 0.9 cm. No vascularity identified. The left axilla is normal. IMPRESSION: 1. Suspicious mass within the right breast at 12:00 5 cm from the nipple. 2. Benign complicated appearing cyst within the left breast at 10:00 4 cm from the nipple. OVERALL BIRADS: 4C-HIGH SUSPICION FOR MALIGNANCY-BIOPSY IS RECOMMENDED. RECOMMENDATION: 1: Ultrasound-guided biopsy of the right breast is recommended. . Pathology: Patient Name: LYN HARRY Source Breast biopsy, Right 12:00 Clinical History Right breast nodule, radial location-12:00, zone-5 cm FN, mass, birads-4 and size- 0.7 cm Diagnosis Preliminary Diagnosis Invasive mammary carcinoma. The final diagnosis is pending immunohistochemistry to determine ductal versus lobular differentiation. ER/AL/HER2 studies are also pending. Assessment and Plan: 58-year-old female female past medical history of diabetes GERD hyperlipidemia and seasonal allergies referred for abnormality seen on a recent screening mammography. Underwent a right breast ultrasound identified to have a 0.7 cm x 0.5 cm suspicious nodule. Now status post right breast ultrasound-guided biopsy -Pathology preliminary at this time with invasive mammary carcinoma, receptor status are pending as well as final diagnosis awaiting immunohistochemistry. -Discussed with the patient diagnosis of an underlying right breast cancer. Explained to her the treatment options including breast conservation versus mastectomy. Patient at this time is interested in pursuing right breast conservation. Explained to her that this will require lumpectomy sentinel lymph node biopsy followed by postop radiation and possible systemic therapy pending final pathology and Oncotype testing. Patient understanding and agreeable to proceed. We will plan for a right needle localized lumpectomy and sentinel lymph node biopsy however I discussed with her that I would like her to return to my office next for final surgical planning after review of the final pathology and hormone receptor status. Will tentatively schedule her today. Encouraged her to bring family with her and to think of any further questions she may have and will discuss them at that time. in this encounter Continuous Active and Recently Administ ered Medications (unrecognized section and content) Medication Order 06/02/2021 06/03/2021 06/04/2021 sodium chloride 0.9% IV solution Intravenous, at 75 mL/hr, CONTINUOUS, Starting on Latoya 06/04/21 at 0945, Until Latoya 06/04/21 at 1339, Pre-op/Pre-Proc 1009 ($$New Bag$$ - Provider: Anika Nolasco, RN)1125 (Stopped - Provider: Radha Amezquita, RN) PRN Medication Order 06/02/2021 06/03/2021 06/04/2021 bupivacaine (PF) (MARCAINE) 0.5 % injection NEEDED, Starting on Latoya 06/04/21 at 1048, Until Latoya 7 at 1339, Intra-op/Intra-Proc 1048 (Given - Provid er: Chiquis Vargas MD) clindamycin (CLEOCIN) 600 mg in normal saline 50 ml premix IVPB (COMPLETED) 600 mg, Intravenous, Administer over 20 Minutes, DIRECTOR CORPORATE SALES TO PROCEDURE, 1 dose, Starting on Latoya 06/04/21 at 0940, Until Discontinued, Other, Pre-operative antibiotic, Pre-op/Pre-Proc 1036 (Given - Provid er: Marcela Ferreira APRN-LOOM OPERATOR APPRENTICE) gentamicin (GARAMYCIN) 80 mg in sodium chloride 0.9 % 500 mL irrigation solution NEEDED, Starting on Latoya 06/04/21 at 1044, Until Latoya 06/04/21 at 1339, Intra-op/Intra-Proc 1044 (Given - Provid er: Chiquis Vargas MD - Comment: given to sterile field) lidocaine (XYLOCAINE) 10 mg/mL injection NEEDED, Starting on Latoya 06/04/21 at 1048, Until Latoya 7 at 1339, Intra-op/Intra-Proc 1048 (Given - Provid er: Chiquis Vargas MD) Care Teams (unrecognized sec tion and content) Aerospace Project Engineer Relationship Specialty Start Date End Date Dereje Trejo MD PCP - General Internal Medicine 08/09/18 Izabella Lopez RN Patient Navigator Oncology 02/21/19 Dereje Trejo MD Referring Physician Internal Medicine 08/18/20 Aerospace Project Engineer Relationship Specialty Start Date End Date Dereje Trejo MD PCP - General Internal Medicine 08/09/18 Izabella Lopez RN Patient Navigator Oncology 02/21/19 Dereje Trejo MD Referring Physician Internal Medicine 08/18/20 Aerospace Project Engineer Relationship Specialty Start Date End Date Dereje Trejo MD [address] [place] [address] PCP - General Internal Medicine 08/09/18 Izabella Lopez RN Patient Navigator Oncology 02/21/19 Dereje Trejo MD [address] [place] [address] Referring Physician Internal Medicine 08/18/20 Aerospace Project Engineer Relationship Specialty Start Date End Date Dereje Trejo MD [address] [place] [address] PCP - General Internal Medicine 08/09/18 Izabella Lopez RN Patient Navigator Oncology 02/21/19 Dereje Trejo MD [address] [place] [facility] [place] [address] Referring Physician Internal Medicine 08/18/20 Aerospace Project Engineer Relationship Specialty Start Date End Date Dereje Trejo MD [address] [place] [address] PCP - General Internal Medicine 08/09/18 Izabella Lopez RN Patient Navigator Oncology 02/21/19 Dereje Trejo MD [address] [place] [facility] [address] Referring Physician Internal Medicine 08/18/20 Aerospace Project Engineer Relationship Specialty Start Date End Date Dereje Trejo MD [address] [place] [address] PCP - General Internal Medicine 08/09/18 Izabella Lopez, RN Patient Navigator Oncology 02/21/19 Dereje Trejo MD [address] [place] [facility] [address] Referring Physician Internal Medicine 08/18/20 Aerospace Project Engineer Relationship Specialty Start Date End Date Dereje Trejo MD [address] [place] [facility] [address] PCP - General Internal Medicine 08/09/18 Izabella Lopez, RN Patient Navigator Oncology 02/21/19 Dereje Trejo MD [address] [place] [facility] [address] Referring Physician Internal Medicine 08/18/20 Aerospace Project Engineer Relationship Specialty Start Date End Date Dereje Trejo MD [address] [place] [facility] [address] PCP - General Internal Medicine 08/09/18 Izabella Lopez, RN Patient Navigator Oncology 02/21/19 Dereje Trejo MD [address] [place] [facility] [address] Referring Physician Internal Medicine 08/18/20 Aerospace Project Engineer Relationship Specialty Start Date End Date Dereje Trejo MD [address] [place] [facility] [address] PCP - General Internal Medicine 08/09/18 Izabella Lopez, RN Patient Navigator Oncology 02/21/19 Deerje Trejo MD [address] [place] [address] Referring Physician Internal Medicine 08/18/20 Aerospace Project Engineer Relationship Specialty Start Date End Date Dereje Trejo MD [address] [place] [address] PCP - General Internal Medicine 08/09/18 Izabella Lopez, RN Patient Navigator Oncology 02/21/19 Dereje Trejo MD [address] [place] [address] Referring Physician Internal Medicine 08/18/20 Aerospace Project Engineer Relationship Specialty Start Date End Date Dereje Trejo MD [address] [place] [address] PCP - General Internal Medicine 08/09/18 Dereje Trejo MD [address] [place] [facility] [address] PCP - JUDI Attributed Provider - [employer] 12/29/21 11/27/50 Izabella Lopez RN Patient Navigator Oncology 02/21/19 Dereje Trejo MD [address] [place] [address] Referring Physician Internal Medicine 08/18/20 Aerospace Project Engineer Relationship Specialty Start Date End Date Dereje Trejo MD [address] [place] [address] PCP - General Internal Medicine 08/09/18 Dereje Trejo MD [address] [place] [facility] [address] PCP - JUDI Attributed Provider - [employer] 12/29/21 11/27/50 Izabella Lopez, RN Patient Navigator Oncology 02/21/19 Dereje Trejo MD [address] [place] [address] Referring Physician Internal Medicine 08/18/20 Aerospace Project Engineer Relationship Specialty Start Date End Date Dereje Trejo MD [address] [place] [address] PCP - General Internal Medicine 08/09/18 Dereje Trejo MD [address] [place] [address] PCP - JUDI Attributed Provider - Volin [employer] 12/29/21 11/27/50 Izabella Lopez, RN Patient Navigator Oncology 02/21/19 Dereje Trejo MD [address] [place] [address] Referring Physician Internal Medicine 08/18/20 Aerospace Project Engineer Relationship Specialty Start Date End Date Dereje Trejo MD [address] [place] [address] PCP - General Internal Medicine 08/09/18 Dereje Trejo MD [address] [place] [address] PCP - JUDI Attributed Provider - [employer]in [employer] 12/29/21 11/27/50 Izabella Lopez, RN Patient Navigator Oncology 02/21/19 Dereje Trejo MD [address] [place] [address] Referring Physician Internal Medicine 08/18/20 Aerospace Project Engineer Relationship Specialty Start Date End Date Dereje Trejo MD [address] [place] [address] PCP - JUDI Attributed Provider - [employer] 12/29/21 11/27/50 Elo Ogden MD [address] [address] PCP - General Family Medicine 07/30/22 Izabella Lopez, RN Patient Navigator Oncology 02/21/19 Dereje Trejo MD [address] [place] [address] Referring Physician Internal Medicine 08/18/20 Aerospace Project Engineer Relationship Specialty Start Date End Date Derjee Trejo MD [address] [place] [address] PCP - JUDI Attributed Provider - [employer] 12/29/21 11/27/50 Elo Ogden MD [address] [address] PCP - General Family Medicine 07/30/22 Izabella Lopez, RN Patient Navigator Oncology 02/21/19 Dereje Trejo MD [address] [place] [address] Referring Physician Internal Medicine 08/18/20 Aerospace Project Engineer Relationship Specialty Start Date End Date Dereje Trejo MD [address] [place] [address] PCP - JUDI Attributed Provider - [employer] 12/29/21 11/27/50 Elo Ogden MD [address] [address] PCP - General Family Medicine 07/30/22 Izabella Lopez, RN Patient Navigator Oncology 02/21/19 Dereje Trejo MD [address] [place] [address] Referring Physician Internal Medicine 08/18/20 Aerospace Project Engineer Relationship Specialty Start Date End Date Dereje Trejo MD [address] [place] [address] PCP - JUDI Attributed Provider - [employer] 12/29/21 11/27/50 Elo Ogden MD [address] [address] PCP - General Family Medicine 07/30/22 Izabella Lopez, RN Patient Navigator Oncology 02/21/19 Dereje Trejo MD [address] [place] [address] Referring Physician Internal Medicine 08/18/20 Aerospace Project Engineer Relationship Specialty Start Date End Date Dereje Trejo MD [address] [place] [address] PCP - JUDI Attributed Provider - [employer] 12/29/21 11/27/50 Elo Ogden MD [address] [address] PCP - General Family Medicine 07/30/22 Izabella Lopez, RN Patient Navigator Oncology 02/21/19 Dereje Trejo MD [address] [place] [address] Referring Physician Internal Medicine 08/18/20 Aerospace Project Engineer Relationship Specialty Start Date End Date Dereje Trejo MD [address] [place] [address] PCP - JUDI Attributed Provider - [employer] 12/29/21 11/27/50 Elo Ogden MD [address] [address] PCP - General Family Medicine 07/30/22 Izabella Lopez, RN Patient Navigator Oncology 02/21/19 Dereje Trejo MD [address] [place] [address] Referring Physician Internal Medicine 08/18/20 Aerospace Project Engineer Relationship Specialty Start Date End Date Dereje Trejo MD [address] [place] [address] PCP - JUDI Attributed Provider - [employer] 12/29/21 11/27/50 Elo Ogden MD [address] [address] PCP - General Family Medicine 07/30/22 Izabella Lopez, RN Patient Navigator Oncology 02/21/19 Dereje Trejo MD [address] [place] [address] Referring Physician Internal Medicine 08/18/20 Aerospace Project Engineer Relationship Specialty Start Date End Date Dereje Trejo MD [address] [place] [address] PCP - JUDI Attributed Provider - [employer] 12/29/21 11/27/50 Elo Ogden MD [address] [address] PCP - General Family Medicine 07/30/22 Izabella Lopez, RN Patient Navigator Oncology 02/21/19 Dereje Trejo MD [address] [place] [address] Referring Physician Internal Medicine 08/18/20 Aerospace Project Engineer Relationship Specialty Start Date End Date Elo Ogden MD [address] [address] PCP - General Family Medicine 07/30/22 Elo Ogden MD [address] [address] PCP - JUDI Attributed Provider - [employer] 12/29/21 11/27/50 Izabella Lopez, RN Patient Navigator Oncology 02/21/19 Dereje Trejo MD [address] [place] [address] Referring Physician Internal Medicine 08/18/20 Aerospace Project Engineer Relationship Specialty Start Date End Date Elo Ogden MD [address] [place] [id number] PCP - General Family Medicine 07/30/22 Elo Ogden MD [address] [address] PCP - JUDI Attributed Provider - [employer] 12/29/21 11/27/50 Izabella Lopez, RN Patient Navigator Oncology 02/21/19 Dereje Trejo MD [address] [place] [address] Referring Physician Internal Medicine 08/18/20 Aerospace Project Engineer Relationship Specialty Start Date End Date Elo Ogden MD [address] [address] PCP - General Family Medicine 07/30/22 Elo Ogden MD [facility] [address] [address] PCP - JUDI Attributed Provider - [employer] 12/29/21 11/27/50 Izabella Lopez, RN Patient Navigator Oncology 02/21/19 Dereje Trejo MD [address] [place] [address] Referring Physician Internal Medicine 08/18/20 Aerospace Project Engineer Relationship Specialty Start Date End Date Elo Ogden MD [address] [place] [address] PCP - General Family Medicine 07/30/22 Elo Ogden MD [address] [place] [address] PCP - JUDI Attributed Provider - [employer] 12/29/21 11/27/50 Izabella Lopez, RN Patient Navigator Oncology 02/21/19 Dereje Trejo MD [address] [place] [address] Referring Physician Internal Medicine 08/18/20 Aerospace Project Engineer Relationship Specialty Start Date End Date Elo Ogden MD [facility] [address] [address] PCP - General Family Medicine 07/30/22 Elo Ogden MD [address] [place] [address] PCP - JUDI Attributed Provider - [employer] 12/29/21 11/27/50 Izabella Lopez RN Patient Navigator Oncology 02/21/19 Dereje Trejo MD [address] [place] [address] Referring Physician Internal Medicine 08/18/20 Aerospace Project Engineer Relationship Specialty Start Date End Date Elo Ogden MD [address] [place] [phone] PCP - General Family Medicine 07/30/22 Elo Ogden MD [address] [place] [phone] PCP - JUDI Attributed Provider - [employer] 12/29/21 11/27/50 Izabella Lopez RN Patient Navigator Oncology 02/21/19 Dereje Trejo MD [address] [place] [address] Referring Physician Internal Medicine 08/18/20 Aerospace Project Engineer Relationship Specialty Start Date End Date Elo Ogden MD [address] [place] [phone] PCP - General Family Medicine 07/30/22 Elo Ogden MD [address] [address] PCP - JUDI Attributed Provider - [employer] 12/29/21 11/27/50 Izabella Lopez RN Patient Navigator Oncology 02/21/19 Dereje Trejo MD [address] [place] [address] Referring Physician Internal Medicine 08/18/20 Aerospace Project Engineer Relationship Specialty Start Date End Date Dereje Trejo MD [address] [place] [address] PCP - General Internal Medicine 05/26/21 Aerospace Project Engineer Relationship Specialty Start Date End Date Elo Ogden MD [address] [address] PCP - General Family Medicine 07/30/22 Elo Ogden MD [facility] [address] [address] PCP - JUDI Attributed Provider - [employer] 12/29/21 11/27/50 Izabella Lopez, RN Patient Navigator Oncology 02/21/19 Dereje Trejo MD [address] [place] [address] Referring Physician Internal Medicine 08/18/20 Aerospace Project Engineer Relationship Specialty Start Date End Date lEo Ogden MD [facility] [address] [address] PCP - General Family Medicine 07/30/22 Elo Ogden MD [facility] [address] [address] PCP - JUDI Attributed Provider - [employer] 12/29/21 11/27/50 Izabella Lopez, RN Patient Navigator Oncology 02/21/19 Dereje Trejo MD [address] [place] [address] Referring Physician Internal Medicine 08/18/20 Aerospace Project Engineer Relationship Specialty Start Date End Date Elo Ogden MD [facility] [address] [address] PCP - General Family Medicine 07/30/22 Elo Ogden MD [facility] [address] [address] PCP - [facility] Provider - [facility] 12/29/21 11/27/50 Izabella Lopez, RN Patient Navigator Oncology 02/21/19 Dereje Trejo MD [address] [place] [address] Referring Physician Internal Medicine 08/18/20 Aerospace Project Engineer Relationship Specialty Start Date End Date Elo Ogden [address] [place], [place] [phone] PCP - General Pediatrics 10/27/23 Aerospace Project Engineer Relationship Specialty Start Date End Date Elo Ogden [address] [place], [place] [phone] PCP - General Pediatrics 10/27/23 Aerospace Project Engineer Relationship Specialty Start Date End Date Elo Ogden [address] [place] [address] PCP - General Pediatrics 10/27/23 Aerospace Project Engineer Relationship Specialty Start Date End Date Elo Ogden MD [address] [place] [address] PCP - General Family Medicine 07/30/22 Elo Ogden MD [facility] [address] [address] PCP - JUDI Attributed Provider - [employer] 12/29/21 11/27/50 Izabella Lopez, RN Patient Navigator Oncology 02/21/19 Dereje Trejo MD [address] [place] [address] Referring Physician Internal Medicine 08/18/20 Aerospace Project Engineer Relationship Specialty Start Date End Date Elo Ogden MD [address] [place] [address] PCP - General Family Medicine 07/30/22 Elo Ogden MD [address] [place] [address] PCP - JUDI Attributed Provider - [employer] 12/29/21 11/27/50 Izabella Lopez RN Patient Navigator Oncology 02/21/19 [place] [address] [place] [address] Referring Physician Internal Medicine 08/18/20 Aerospace Project Engineer Relationship Specialty Start Date End Date Elo Ogden [address] [place] [address] PCP - General Pediatrics 10/27/23 Aerospace Project Engineer Relationship Specialty Start Date End Date Elo Ogden MD [address] [address] PCP - General Family Medicine 07/30/22 Shannan Calzada CNP [address] [place] [address] PCP - JUDI Attributed Provider - [employer] 12/29/21 11/27/50 Izabella Lopez, RN Patient Navigator Oncology 02/21/19 Dereje Trejo MD [address] [place] [address] Referring Physician Internal Medicine 08/18/20 Aerospace Project Engineer Relationship Specialty Start Date End Date Elo Ogden [facility] [address] [address] PCP - General Pediatrics 10/27/23 Aerospace Project Engineer Relationship Specialty Start Date End Date Elo Ogden MD [facility] [address] [address] PCP - General Family Medicine 07/30/22 Shannan Calzada CNP [address] [place] [address] PCP - JUDI Attributed Provider - [employer] 12/29/21 11/27/50 Izabella Lopez, RN Patient Navigator Oncology 02/21/19 Dereje Trejo MD [address] [place] [address] Referring Physician Internal Medicine 08/18/20 Aerospace Project Engineer Relationship Specialty Start Date End Date Elo Ogden MD [address] [address] PCP - General Family Medicine 07/30/22 Shannan Calzada CNP [address] [place] [address] PCP - JUDI Attributed Provider - [employer] 12/29/21 11/27/50 Izabella Lopez, RN Patient Navigator Oncology 02/21/19 Dereje Trejo MD [address] [place] [address] Referring Physician Internal Medicine 08/18/20 Aerospace Project Engineer Relationship Specialty Start Date End Date Elo Ogden MD [address] [address] PCP - General Family Medicine 07/30/22 Shannan Calzada CNP [address] [place] [address] PCP - JUDI Attributed Provider - [employer] 12/29/21 11/27/50 Izabella Lopez RN Patient Navigator Oncology 02/21/19 [place] [address] [place] [address] Referring Physician Internal Medicine 08/18/20 Aerospace Project Engineer Relationship Specialty Start Date End Date Elo Ogden MD [facility] [address] [address] PCP - General Family Medicine 07/30/22 Shannan Calzada CNP [address] [place] [address] PCP - JUDI [facility] 12/29/21 11/27/50 Izabella Lopez, RN Patient Navigator Oncology 02/21/19 Dereje Trejo MD [address] [place] [address] Referring Physician Internal Medicine 08/18/20 Aerospace Project Engineer Relationship Specialty Start Date End Date Elo Ogden MD [address] [address] PCP - General Family Medicine 07/30/22 Izabella Lopez RN Patient Navigator Oncology 02/21/19 Dereje Trejo MD [address] [place] [address] Referring Physician Internal Medicine 08/18/20 Aerospace Project Engineer Relationship Specialty Start Date End Date Elo Ogden MD [facility] [address] [address] PCP - General Family Medicine 07/30/22 Izabella Lopez RN Patient Navigator Oncology 02/21/19 Dereje Trejo MD [address] [place] [address] Referring Physician Internal Medicine 08/18/20 Aerospace Project Engineer Relationship Specialty Start Date End Date Elo Ogden MD [address] [address] PCP - General Family Medicine 07/30/22 Izabella Lopez RN Patient Navigator Oncology 02/21/19 Dereje Trejo MD [address] [place] [address] Referring Physician Internal Medicine 08/18/20 Aerospace Project Engineer Relationship Specialty Start Date End Date Elo Ogden MD [address] [address] PCP - General Family Medicine 07/30/22 Izabella Lopez, RN Patient Navigator Oncology 02/21/19 Dereje Trejo MD [address] [place] [address] Referring Physician Internal Medicine 08/18/20 Aerospace Project Engineer Relationship Specialty Start Date End Date Elo Ogden MD [address] [address] PCP - General Family Medicine 07/30/22 Izabella Lopez, RN Patient Navigator Oncology 02/21/19 Dereje Trejo MD [address] [place] [address] Referring Physician Internal Medicine 08/18/20 Team Status: Active Member Role/Relationship Status Dates ELO OGDEN MD Primary Care Provider Active Team Status: Inactive Member Role/Relationship Status Dates ELO OGDEN MD Primary Care Provider Active Start: July 26, 2025 End: July 26, 2025 ELO OGDEN MD Referring Provider Active Sta rt: July 26, 2025 End: July 26, 2025 Dr. Krishna Caraballo MD Attending Provider Active Start: July 26, 2025 End: July 26, 2025 Team Status: Inactive Member Role/Relationship Status Dates ELO OGDEN MD Primary Care Provider Active Start: July 26, 2025 End: July 26, 2025 Dr. Krishna Caraballo MD Attending Provider Active Start: July 26, 2025 End: July 26, 2025 Dr. Krishna Caraballo MD Referring Provider Active Start: July 26, 2025 End: July 26, 2025 Team Status: Inactive Member Role/Relationship Status Dates ELO OGDEN MD Primary Care Provider Active Start: August 02, 2025 End: August 02, 2025 Dr. Krishna Caraballo MD Attending Provider Active Start: August 02, 2025 End: August 02, 2025 Dr. Krishna Caraballo MD Referring Provider Active Start: August 02, 2025 End: August 02, 2025 Aerospace Project Engineer Relationship Specialty Start Date End Date Elo Ogden MD [address] [place] [address] PCP - General Family Medicine 07/30/22 Izabella Lopez RN Patient Navigator Oncology 02/21/19 Dereje Trejo MD [address] [place] [address] Referring Physician Internal Medicine 08/18/20 Shannan Calzada [employer]OR [address] [place] [address] Nurse Practitioner Nurse Practitioner 08/28/25 Aerospace Project Engineer Relationship Specialty Start Date End Date Elo Ogden MD [address] [place] [address] PCP - General Family Medicine 07/30/22 Izabella Lopez RN Patient Navigator Oncology 02/21/19 Dereje Trejo MD [address] [place] [address] Referring Physician Internal Medicine 08/18/20 Shannan Calzada CNP [address] [place] [address] Nurse Practitioner Nurse Practitioner 08/28/25 Aerospace Project Engineer Relationship Specialty Start Date End Date Elo Ogden MD [address] [address] PCP - General Family Medicine 07/30/22 Izabella Lopez RN Patient Navigator Oncology 02/21/19 Dereje Trejo MD [address] [place] [address] Referring Physician Internal Medicine 08/18/20 Shannan Calzada CNP [address] [place] [address] Nurse Practitioner Nurse Practitioner 08/28/25 Team Status: Active Member Role/Relationship Status Dates ELO OGDEN MD Primary care physician Active Team Status: Inactive Member Role/Relationship Status Dates ELO OGDEN MD Primary care physician Active Start: July 26, 2025 End: July 26, 2025 ELO OGDEN MD Referring Provider Active Sta rt: July 26, 2025 End: July 26, 2025 Dr. Krishna Caraballo MD Attending physician Active Start: July 26, 2025 End: July 26, 2025 Team Status: Inactive Member Role/Relationship Status Dates ELO OGDEN MD Primary care physician Active Start: July 26, 2025 End: July 26, 2025 Dr. Krishna Caraballo MD Attending physician Active Start: July 26, 2025 End: July 26, 2025 Dr. Krishna Caraballo MD Referring Provider Active Start: July 26, 2025 End: July 26, 2025 Team Status: Inactive Member Role/Relationship Status Dates ELO OGDEN MD Primary care physician Active Start: August 02, 2025 End: August 02, 2025 Dr. Krishna Caraballo MD Attending physician Active Start: August 02, 2025 End: August 02, 2025 Dr. Krishna Caraballo MD Referring Provider Active Start: August 02, 2025 End: August 02, 2025 Team Status: Inactive Member Role/Relationship Status Dates ELO OGDEN MD Primary care physician Active Start: September 12, 2025 End: September 12, 2025 ELO OGDEN MD Referring Provider Active Sta rt: September 12, 2025 End: September 12, 2025 Dr. Krishna Caraballo MD Attending physician Active Start: September 12, 2025 End: September 12, 2025 Team Status: Inactive Member Role/Relationship Status Dates ELO OGDEN MD Primary care physician Active Start: September 12, 2025 End: September 12, 2025 Dr. Krishna Caraballo MD Attending physician Active Start: September 12, 2025 End: September 12, 2025 Dr. Krishna Caraballo MD Referring Provider Active Start: September 12, 2025 End: September 12, 2025 Goals (unrecognized section and content) Goals may be documented in a n alternate sectionGoals may be documented in an alternate sectionGoals may be documented in an alternate sectionGoals may be documented in an alternate section FOR RECORDS PERTAINING TO PATIENTS WHO ARE OR HAVE BEEN ENROLLED IN A CHEMICAL DEPENDENCY/SUBSTANCEABUSE PROGRAM, SOME INFORMATION MAY BE OMITTED. This clinical summary was aggregated from multiple sources. Caution should be exercised in using it in the provision of clinical care. This summary normalizes information from multiple sources, and as a consequence, information in this document may materially change the coding, format and clinical context of patient data. In addition, data may be omitted in some cases. CLINICAL DECISIONS SHOULD BE BASED ON THE PRIMARY CLINICAL RECORDS. [email or web address] provides no warranty or guarantee of the accuracy or completeness of information in this document.
[2025-10-14] MEDS: Lactated Ringers 1,000 ML 15 ML IV (06:27)
[2025-10-14 06:58] LABS: PTHIN 123 pg/mL (11-61)
--- NOTE | 2025-10-14 07:10 | PCM.PRE.AN2 ---
ASA Classification* ASA Classification ASA Classification: 2 Assessment & Plan Anesthesia* Anesthesia Assessment Anesthesia Assessment: Discussed sedation and/or anesthesia options, risks, benefits, and alternatives with patient/parents/legal guardian/POA. Questions invited. The patient/parents/legal guardian/POA seems to understand and agrees to proceed with anesthesia plan. Reviewed the physical assessment, medical history, allergy history and patient home medications list prior to surgery/procedure/anesthetic and documented any changes. Performed airway and anesthesia risk assessments. Anesthesia Type Anesthesia Type: General History Source History Obtained from:: Patient and Chart Anesthesia Focused Assessment* Temperature: 98.8 F Pulse Rate: 79 Blood Pressure: 139/91 Respiratory Rate: 16 Pulse Ox: 98 Oxygen Delivery Method: Room Air Airway Assessment Mouth opens: >3 cm Mallampati Score: III Teeth Condition: Caps/Crowns (Patient has several crowns. They are all tight.) Neck Range of motion (ROM): Full ROM Labs Anesthesia Preop lab: CBC CHEMISTRY Potassium, (3.3-5.1) 4.2 mmol/L 10/01/25, 11:02 Sodium, (133-145) 139 mmol/L 10/01/25, 11:02 BUN, (4-19) 12 mg/dL 10/01/25, 11:02 Creatinine, (0.70-1.20) 0.85 mg/dL 10/01/25, 11:02 Glucose, (70-99) 212 mg/dL H 10/01/25, 11:02 COAG Pre-Assessment Diagnosis/Proposed Procedure Planned Operative Procedure(s): (N/A) Parathyroidectomy w/IONM Anesthesia History Anesthesia History - reel cutter: Anesthesia History - reel cutter Hx Hospitalization No 09/30/25 11:04 Any Problems With Anesthesia Yes 09/30/25 11:04 Cholinesterase deficiency No 09/30/25 11:04 You/Your Family Experience No 09/30/25 11:04 fever (hyperthermia) with Relationship Recent Exposure to Contagious No 10/14/25 06:25 Disease Does patient have nerve No 09/30/25 11:04 stimulator Patient instructed to have device shut off --Does patient have Pacemaker No 10/14/25 06:25 or ICD? When Was Last Pacemaker Check QUESTION #4 FULL TEXT: You/Your Family Experience fever (hyperthermia) with Anesthesia Last Oral Intake Last Oral intake: Last Oral Intake NPO since 21:30 10/14/25 06:25 Meds taken in AM with sips of water? Meds patient instructed to take am of surgery Any additional information?: Yes Meds taken in AM with sips of water?: Yes PONV PONV - reel cutter: PONV - reel cutter Female Yes 09/30/25 11:04 HX of Motion Sickness Yes 09/30/25 11:04 HX of N/V After Surgery Yes 09/30/25 11:04 Non-Smoker Yes 09/30/25 11:04 Duration of Surgery greater Yes 09/30/25 11:04 than 60 minutes Number of Risk Factors 5 09/30/25 11:04 PONV Score Severe Risk 09/30/25 11:04 Height & Weight Height & Weight: Anesthesia: Height & Weight Height 5 ft 4 in 10/14/25 06:25 Weight: 92 kg 10/14/25 06:25 Body Mass Index (BMI) 34.8 10/14/25 06:25 Respiratory Assessment Respiratory Assessment - reel cutter: Respiratory Tract Infection Hx - reel cutter Hx Respiratory Tract Infection No 09/30/25 11:04 STOP Sleep Apnea STOP Sleep Apnea - reel cutter: STOP Sleep Apnea - reel cutter Hx Hypertension Yes: controlled with med 09/30/25 11:04 Hx Sleep Apnea No 09/30/25 11:04 CPAP BIPAP Do you snore loudly (louder Yes 09/30/25 11:04 than talking or can be heard Do you often feel tired/ No 09/30/25 11:04 fatigued/ sleepy during daytime? Has anyone observed you stop No 09/30/25 11:04 breathing during sleep? STOP Results Positive 09/30/25 11:04 QUESTION #5 FULL TEXT : Do you snore loudly (louder than talking or can be heard through closed doors)? 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 Specify any problems Hx of Preganancy in last 3 N/A 09/30/25 11:04 Months Nurse Filling Out Transfusion NBUCHER 09/30/25 11:04 & Questions: Date: 09/30/25 09/30/25 11:04 Time: 11:09/30/25 11:04 Patient unable to answer at this time (ie. confused, unrespo /Reproduction History /Reproductive History - reel cutter: /Reproductive Hx- reel cutter Hx Now No 09/30/25 11:04 Gestational Age (in weeks): EDC: Hx Hx Para Hx Section SAB No 09/30/25 11:04 Does the father of the baby or his family experience fever w Father of the baby Malignant Hypertension history comment Active Medications Active Medications: Current Medications Generic Name Dose Route Start Last Admin Trade Name Freq PRN Reason Stop Dose Admin Lactated Ringer's 1,000 mls @ 15 mls/hr 10/14/25 06:15 10/14/25 06:27 IV 15 mls/hr .Q48H MADHURI Administration PFSH Medical History (Updated 09/30/25 @ 11:17 by Sharmin Doe) Wears glasses Cancer High cholesterol PONV (postoperative nausea and vomiting) History of IBS Non-smoker Leg cramps Parathyroid adenoma Low vitamin D level Serum calcium elevated Elevated parathyroid hormone Fatigue Acid reflux HTN (hypertension) Diabetes Breast cancer Home Medications Medication Instructions Recorded Last Taken Type atorvastatin 40 mg tablet (Lipitor) 40 mg PO QDAY 07/26/25 10/13/25 History famotidine 20 mg tablet 20 mg PO BID 07/26/25 10/14/25 History lisinopril 10 mg tablet 10 mg PO QDAY 07/26/25 10/13/25 History metformin 500 mg tablet,extended 500 mg PO BID 07/26/25 10/13/25 History release 24 hr cetirizine 10 mg tablet (24Hour 10 mg PO DAILY PRN allergy symptoms 09/30/25 10/13/25 History Allergy) cholecalciferol (vitamin D3) 50 50 mcg PO DAILY 10/14/25 10/13/25 History mcg (2,000 unit) capsule Allergy/AdvReac Type Severity Reaction Status Date / Time Penicillins (PCN) Allergy Mild Hives Verified 10/14/25 06:22 Surgical History S/P lumpectomy, right breast S/P tubal ligation Hx of exploratory laparotomy S/P D&C (status post dilation and curettage) S/P section S/P laparoscopic cholecystectomy S/P appendectomy Social History Smoking Status: Never smoker alcohol intake: never Review of Systems (Anesthesia) ROS Narrative System reviewed and no additional complaints, except as documented.
--- NOTE | 2025-10-14 07:14 | HP.PCM_ITS ---
History and Physical Date of Admission: 10/14/25 Date of Service: 09/12/25 MR#: [id number] Acct: [id number] Name: BETSY PERKINS Rep #: [id number] : 1960 Provider: Dr. Krishna Caraballo MD Age/Sex: 65/F Location: [facility] Status: Signed Intake Vital Signs 07/26/2514:41 09/12/2514:25 Height 5 ft 4 in 5 ft 4 in Weight: 206 lb 206 lb BMI 35.3 35.3 BP 124/80 H 161/90 H Blood Pressure Location Rt brachial Rt brachial Position Sitting Sitting Respiration 16 16 Intake Visit Reasons: LAB RESULTS, DISCUSS FURTHER STEPS Chief Complaint: Discuss testing Environmental Safety Specialist Required: No Is patient in pain?: No Allergies Penicillins (PCN) Allergy (Mild, Verified 09/12/25 14:26) Hives Medications Medication Instructions Recorded Confirmed Type atorvastatin 40 mg tablet (Lipitor) 40 mg PO QDAY 07/26/25 09/12/25 History famotidine 20 mg tablet 20 mg PO BID 07/26/25 09/12/25 History lisinopril 10 mg tablet 10 mg PO QDAY 07/26/25 09/12/25 History metformin 500 mg tablet,extended 500 mg PO BID 07/26/25 09/12/25 History release 24 hr Have you fallen in the past year?: No PFSH Medical History Parathyroid adenoma Low vitamin D level Serum calcium elevated Elevated parathyroid hormone Fatigue Acid reflux HTN (hypertension) Diabetes Breast cancer Surgical History S/P lumpectomy, right breast S/P tubal ligation Hx of exploratory laparotomy S/P D&C (status post dilation and curettage) S/P section S/P laparoscopic cholecystectomy S/P appendectomy Social History Smoking Status: Never smoker alcohol intake: never HPI HPI HPI: Patient is a 65-year old female who presents for a second opinion related to a diagnosis of hyperparathyroidism. They are referred from Dr. Hinton. This represents her second visit after initial consultation visit 07/26/2025. In the interim she completed 24-hour urine calcium assay as well as repeat DEXA imaging. Labs were also repeated and she was found to be vitamin D deficient so she was started on more aggressive supplementation. Outside of the above she denies any significant health changes. Below is recapitulated from patient's initial consultation visit for ease review: Patient is a 65-year old female who presents for a second opinion related to a diagnosis of hyperparathyroidism. They are referred from Dr. Hinton. Patient states she presented to a survivorship clinic after a diagnosis of breast cancer earlier this summer and answered that she was feeling some fatigue. It was then her laboratories were tested and she was found to have some hypercalcemia and some vitamin D deficiency. Parathyroid hormone also was tested and found to be elevated. Since that time she completed parathyroid ultrasound, sestamibi imaging and even met with a surgeon. She shares that she was scheduled for surgery yesterday, however, was unconvinced of her need for the operation and did not completely mesh with the surgeon she met with. Patient has a history of 2 prior bone density tests. She shares the first test showed some bone loss and between the this result and her use of Arimidex for her breast cancer she was placed on Prolia. She notes that the second DEXA scan obtained 2 years ago showed some improvement in this bone loss but she has since been discontinued of a Prolia and is pending a follow-up DEXA scan in August. Unfortunately none of these results are immediately available. Patient has no history of pathologic fractures or bony fractures otherwise. Patient has no history of kidney stones, but does relate an experience over period of about a week where she felt self-limited flank pain on bilateral flanks. Patient has no history of frequent dental caries or chipped teeth. Patient has no history of brittle fingernails. Patient does have a history of GERD for which she takes famotidine, but notes it has been somewhat worse of late despite rather consistent dietary modification. Patient also has a history of hypertension, but her blood pressure control has been stable/adequate. Additional symptoms include: Pertinent positives: Fatigue (as noted above), pertinent negatives: Denial of difficulty concentrating, denial of depression. Patient has a history of prior radiation exposure. Patient has no family history of other endocrinopathies Patient [does/does not] have a diet high in dairy. Patient's current labs are calcium: 10.3 mg/dL 05/20/2025 (range of 8.4-10.2), Vitamin D: 16 ng/mL 05/20/2025 , Ionized calcium: [Value]mg/dL [date], PTH: 125 pg/mL 05/20/2025 (range 12-65) Current medications include: Vitamin D3 25 mcg daily. Imaging has been done parathyroid ultrasound on 05/30/2025 and showed a "1.7 cm hypoechoic nodule identified in the right parathyroid bed, suspicious for parathyroid adenoma". Additionally sestamibi scan was performed with SPECT-CT showing "parathyroid adenoma in the right thyroid bed posterior to the mid right thyroid lobe where a nodule is present measuring 7.4 mm" Patient has had DEXA imaging (as above 2 years ago and is pending repeat study 09/03/2025). Patient has not had renal imaging. ROS General General: Yes fatigue and breast cancer; No weight change, appetite, colon cancer or weakness HEENT HEENT: No difficulty swallowing, eye injury, eye surgery, swollen glands or hoarseness Endo Endocrine: Yes diabetes mellitus; No thyroid disease, thyroid cancer, Hair loss, heat intolerance or cold intolerance Skin Skin: No rash or changing moles Breast Breast: No left breast lump, right breast lump, nipple discharge, breast pain, abnormal mammogram, abnormal US or breast enlargement Musc Musculoskeletal: No back problems, arthritis, rheumatoid arthritis, gout or chadwick int pain Cardio Cardiovascular: Yes high blood pressure; No murmur, pacemaker, heart disease, atrial fibrillation, heart attack, heart stent, palpitations, shortness of breath with exertion or chest pain Psych Psychiatric: No depression, anxiety or hearing voices Resp Respiratory: No shortness of breath, No sleep apnea, No cough, No COPD, No asthma, No emphysema and No wheezing Gastro Gastrointestinal: No abdominal pain, No nausea or vomiting, No diarrhea, No constipation, No blood in stool, Yes acid reflux, No hemorrhoids, No ulcers, No gallbladder problem and No black,tarry stools Wiliam Hematologic: No blood thinners, No blood disorders, No bleeding, No anemia and No blood clots Neuro Neurologic: No system reviewed and no additional complaints, except as documented, No as per HPI, No abnormal gait, No abnormal hearing, No abnormal movements, No abnormal speech, No behavioral changes, No burning sensations, No confusion, No convulsions, No disequilibrium, No dizziness, No localized weakness, No frequent falls, No headache(s), No lack of coordination, No loss of vision, No memory loss, No numbness, No other visual disturbances, No radicular pain, No restless legs, No sensory deficit, No syncope, No tingling, No tremor(s), No weakness and No other Exam Const General: cooperative and comfortable Orientation: alert, awake and oriented x3 Neck Other: Faint contusion to right side of neck right above clavicular head. Under ultrasound exam identify a hypoechoic lesion that is void of Doppler signal in the right mid polar position posterior to the thyroid gland measuring 1.5 x 0.5 cm Assessment and Plan Assessment and Plan (1) Elevated parathyroid hormone: Status: Acute Comment: Patient is 65-year-old female who is referred for second opinion related to concern for primary hyperparathyroidism. She has had extensive workup and was even pending parathyroidectomy with another surgeon when she sought second opinion. In my review of her history and workup I have several concerns related to her diagnosis as it presently stands. Unfortunately her vitamin D has been chronically low and this was the case when her calcium and parathyroid hormone were drawn. I shared with her that diagnosis of primary hyperparathyroidism is made at the biochemical level and relies on and interpretation of her PTH and calcium only once the vitamin D level is confirmed as normal. Thus I discussed my interested in repeating her laboratories now that she has been supplemented on vitamin D, but remain concerned she may still be low and require further supplementation. I then went on to describe the NIH guidelines for asymptomatic hyperparathyroidism and shared that she does not meet this criteria based on her workup to date, but I would like to revisit her bone densitometry as she suggests there may have been some indication of demineralization and believe she should be assessed for hypercalciuria with a 24-hour urine study. I stated it was my preference to understand whether or not she meets criteria for surgical parathyroidectomy based on these answers. I also shared my belief that she may still stand to derive some benefit from parathyroidectomy even if she falls out from these criteria–particularly with her reporting fatigue and her history of hypertension with the risk for hastened atherosclerosis with hyperparathyroidism. I stated that there would be no way to prognosticate preoperatively and this must be counterbalanced with the risks of surgery. Patient and her confirmed understanding of the conversation and expressed their appreciation. They will present now for updated lab testing and we will await the results of her DEXA scan planned for just over a month from now. I will plan to follow-up with her to review all of these results at a subsequent visit. Update 09/12/2025: Reviewed results with patient today in clinic. Repeat laboratory testing showed persistent vitamin D deficiency but she has supplemented as directed and is pending a recheck. I stressed that vitamin D levels would need to be within normal range before proceeding with any operation. Additionally, I discussed her DEXA imaging which showed normal bone mineral density and her 24-hour urine calcium which was abnormal and high at 390.4 mg per 24 hours. I explained that with these results we technically did not reach threshold for surgical indications and therefore offered continued surveillance of the disease process versus proceeding with the information we now have. She shares that her leaning is to proceed with surgery. I suggested that a preemptive approach may be prudent and more reasonable given her co localization with ultrasound and sestamibi. I explained that this co localization and her laboratory values should reflect a probable single adenoma as the causative agent for her primary hyperparathyroidism. I also explained how this means it is reasonable to proceed with a minimally invasive parathyroidectomy with intraoperative PTH monitoring. Hand-drawn schematic's were then used to explain the details of the operation including PTH monitoring with intraoperative draws from the ipsilateral internal jugular vein. I explained the risks of the procedure to include hypoparathyroidism and recurrent laryngeal nerve injury. I expounded upon these risks in light of patient's minimal symptoms/indications to share that I would have a hard time recommending proceeding all the way to a subtotal parathyroidectomy if that is what our intraoperative findings dictated given the risk for hypoparathyroidism as I do not believe the risk for hypoparathyroidism would be justified by the absence of these indications. Patient confirmed understanding. She wishes to proceed with the operation as outlined but understands the importance of normalizing her vitamin D level before proceeding. Lastly I did use bedside ultrasound to localize the hypoechoic lesion in her right neck and believe this could be used to have the operation for incision planning. Plan: – Repeat vitamin D hydroxy, PTH, and serum calcium today – Tentatively plan for minimally invasive parathyroidectomy with intraoperative PTH monitoring pending review of the above labs (2) Serum calcium elevated: Status: Acute (3) Low vitamin D level: Status: Acute Comment: Status post retesting with persistently low level. Patient has undergone supplementation. Will retest to determine if her vitamin D level is now repleted. Stressed that this needs to be normal before proceeding with surgical intervention. Plan: – Follow-up vitamin D 25-hydroxy Orders: Orders PTHIN Today D35.1 - Benign neoplasm of parathyroid gland Calcium,Total Today D35.1 - Benign neoplasm of parathyroid gland Vitamin D,25 Hydroxy Today D35.1 - Benign neoplasm of parathyroid gland Coding Level of Care Code Off vis,est,level 3 Diagnoses Elevated parathyroid hormone R79.89 Serum calcium elevated E83.52 Low vitamin D level R79.89 I have examined the patient and the H&P has been reviewed. There are no clinical changes since date of exam. Procedure details were reviewed as occasioned by patient's question about the necessity of/likelihood for needing to proceed to the contralateral side. Postprocedure activity restrictions reviewed. Additionally, I reviewed the signs and symptoms of hypocalcemia and gave instruction if identified. Consents were confirmed. Unfortunately operating room notifies me that we are on a bit of a delay as there is technical issue with anesthesia machine. Will await further information during troubleshooting. Otherwise plan to proceed with parathyroidectomy with intraoperative nerve and PTH monitoring.
--- NOTE | 2025-10-14 07:30 | PARA_PTH ---
PATIENT: BETSY PERKINS LOC: [facility] [place] U#:[id number] AGE/SX: 65/F ROOM: RE10/14/[address]: Dr. Krishna Caraballo MD : 1960 BED: DIS: 10/14/2025 SPEC #: [id number] RECD: 10/14/25 09:45 STATUS: LEO REFarhan #: [id number] BECCA: 10/14/25 07:[address]: Krishna Caraballo DEPT: SURGICAL PATHOLOGY RECD BY: Vikram Hernandez ENTERED: 10/14/25 12:09 SP TYPE: PARATHY OTHR DR: MD ELO Luis MD Tissues: A - Parathyroid Procedures: Frozen Section (charge) Surgery Specimen Level IV HEADER OPERATION: Parathyroidectomy with IONM PRE-OP DIAGNOSIS: Elevated parathyroid hormone, serum calcium elevated, low vitamin D level TISSUE SUBMITTED: A- Right superior parathyroid FROZEN SECTION DIAGNOSIS A. Right superior parathyroid, excision: Parathyroid tissue, 994 mg. MS/mr 10/14/2025 MICROSCOPIC DIAGNOSIS A. Right superior parathyroid, excision: * Enlarged and hypercellular parathyroid gland (0.994 grams, 2.0 cm) MICROSCOPIC DESCRIPTION Slides are reviewed. GROSS DESCRIPTION A. Received fresh for frozen section diagnosis labeled patient's name and date of . Designated as "right superior" is a 0.994 g, 2.0 x 1.4 x 0.4 cm red-brown parathyroid gland. The specimen is bisected and entirely submitted for frozen section diagnosis subsequently placed in cassette A1 for permanent sections. [facility] 10/14/2025 CPT:54806,98975
[2025-10-14] MEDS: Midazolam 2 MG/2 ML Syringe IV (08:06)
[2025-10-14] MEDS: Lidocaine 1% (5 ml sdv) 5 ML Vial 10 ML IV (08:10)
[2025-10-14] MEDS: DiphenhydrAMINE 50 MG/ML Syringe 12.5 MG IV (08:12)
[2025-10-14] MEDS: fentaNYL 100 MCG/2 ML Ampul IV (08:16)
[2025-10-14] MEDS: REMIFENTANIL HCL 1 MG VIAL IV (08:16)
[2025-10-14 09:19] LABS: PTHIN 126 pg/mL (11-61)
[2025-10-14 10:17] LABS: PTHIN 45 pg/mL (11-61)
[2025-10-14 10:18] LABS: PTHIN 46 pg/mL (11-61)
--- NOTE | 2025-10-14 10:25 | PCM.OPRPT ---
Operative Report (Standard) Operative Information Date of Procedure: 10/14/25 Pre-Operative Diagnosis: Primary hyperparathyroidism Post-Operative Diagnosis: Primary hyperparathyroidism secondary to right superior adenoma Surgery/Procedure Performed: Parathyroidectomy with intraoperative PTH and nerve monitoring library services assistant: Yes And Drying Supervisor Cooking Casing: Mariann Lewis Tasks completed by first breaker feeder: Opening & closing and Retracting Type of Anesthesia: General/Supplemental RN Documented Start/Stop Times: Operation Date: 10/14/25 07:30 Case Time Into Pre-Op 10/14/25 06:00 Out of Pre-Op 10/14/25 08:02 Anesthesia Start 10/14/25 08:05 Into Room 10/14/25 08:05 Procedure Start 10/14/25 08:36 Procedure End 10/14/25 10:27 Anesthesia End 10/14/25 10:38 Out of Room 10/14/25 10:38 Into Recovery 10/14/25 10:41 Out of Recovery 10/14/25 11:17 Into Phase II Recovery 10/14/25 11:18 Out of Phase II 10/14/25 15:00 Procedure Start Time: 08:36 Procedure Stop Time: 10:27 Select all DRAINS/GRAFTS/IMPLANTS that apply: None Estimated Blood Loss: 5 Specimen collected: Yes Description of specimen(s) removed: Right superior parathyroid Description of surgery: After appropriate identification in the preoperative holding area the patient was brought to the operating room where she was positioned supine on the operating room table. There she was induced with general endotracheal anesthetic. Of note, a preoperative PTH had been obtained and was reported as 123 pg/mL. Patient was then intubated using a Nims tube and glide a scope to ensure coaptation between the vocal cords and the Nims tube electrodes. A resistance check confirmed appropriate function of the tube after the electrodes were properly connected to the monitoring box. Patient was then positioned in cervical extension, but adequately supporting the occiput. She was prepped and draped in the usual sterile fashion and a formal timeout followed to confirm patient and the procedure to be performed. A local block was produced with infiltration of local anesthetic and a 4cm transverse incision was made. This was deepened with the use of electrocautery through the platysma and subplatysmal flaps were raised superiorly and inferiorly. Ultimately the strap muscles were exposed and were divided along their raphe with electrocautery. The strap muscles were from one another as I proceeded with dissection laterally towards the patient's right internal jugular vein. Once this structure was sufficiently exposed I obtained a baseline central vein PTH level. This ultimately returned at 126 pg/mL. I then used blunt dissection to free the sternothyroid muscle from the thyroid capsule of the right thyroid lobe deeply. I elevated the right thyroid lobe after division of the middle thyroid vein. I first began to dissect along a mid polar structure that appeared to be separate from the thyroid, however as I proceeded it became apparent that this was a bit of an exophytic nodule along the thyroid and not a separate structure. Therefore this dissection was abandoned and I inspected more deeply and superiorly. Here, I identified a large parathyroid gland with its tip oriented away from the pedicle superiorly. Careful blunt dissection was employed to free the structure from its surrounding soft tissue attachments and avoid capsular disruption. It was then circumferentially freed so that it remained suspended by its vascular pole. At this point a small titanium clip was placed across the pole and the plan was sharply amputated free. This specimen was passed off the field for frozen section confirmation. (Later, pathology telephoned the room to notify us that indeed this represented a large parathyroid gland weighing 994mg). As we awaited this result, I irrigated the surgical cavity with sterile water examined for hemostasis. Finding this intact, I also developed the plane between the thyroid capsule and the strap muscles to try to identify the second parathyroid gland on this side. The tracheoesophageal groove was also developed bluntly and I confirmed an intact signal from our right recurrent laryngeal nerve using our Nims monitor. Right internal jugular ex vivo blood draws were made with a 22-gauge needle and syringe at 10 and 15 minutes were 46 and 45, respectively. As I waited the results of these blood draws I performed a limited dissection inferiorly to try to identify the parathyroid in that position and was able to clearly confirm the thyroid thymic ligament with a candidate lesion in the superior aspect of that tissue. There is about this time that I got confirmation from pathology that our specimen did represent parathyroid. Not wanting to compromise the perfusion of that structure and satisfied with this result, the case was terminated and hemostasis was once again confirmed in the surgical bed. Then I performed closure of the neck in layers. The strap muscles were run with a 3-0 Vicryl suture to reapproximate the raphe, but a gap was left in the inferior most portion of the strap muscles. Then the platysmal layer was reapproximated with interrupted 3-0 Vicryl. Additional local anesthetic was instilled. The skin was closed using a running 4-0 Monocryl in a subcuticular fashion. Steri-Strips and Telfa OpSite was applied as a dressing. Patient was then awoken from general anesthetic and taken to PACU for ongoing recovery. Surgical Findings: – Peripheral baseline PTH 123 – Central baseline PTH 126 – 10 and 15-minute PTH is 46 and 45 – Specimen weight 994 mg Complications Complications: No Admit VTE Documentation VTE Mechan Device Prophylaxis: SCD's
--- NOTE | 2025-10-14 10:27 | DCINST_ITS ---
Discharge Instructions Diet Discharge Diet: No restrictions (However recommend a liquid to soft diet initially postoperatively) Activity Discharge Activity: May Not Drive (While it remains difficult to check blind spots quickly) May shower in (days): 2 Ice area for (Minutes): 20 Lifting Restrictions: No lifting greater than 15 pounds for 2 weeks after surgery Dressing / Incision Call your doctor if your incision/area has: Continuous Slow Oozing, Sudden Increased Bleeding, Increased Pain/ Swelling, Increased Redness and Swelling at the incision site Call your doctor if you observe: Numbness or Tingling Remove Dressing in: 2 days (Please leave Steri-Strips intact until they fall off spontaneously or are taken off at your follow-up visit) Cleanse incision/area with: Soap & Water Follow Up Care Please Follow Up With: Krishna Caraballo MD When: 10-14 days postop Test Results: Test results from this visit will be discussed in further detail at your follow- up appointment, if applicable. Discharge Plan Admission Primary Reason for Your Visit: Parathyroid surgery Attending Provider: Krishna Caraballo Primary Care Provider: ELO OGDEN Consulting Providers: Alfa Pruitt Instructions Print Language: French Discharge Orders/Prescriptions Prescriptions: Continued metformin 500 mg tablet extended release 24 hr 500 mg PO BID lisinopril 10 mg tablet 10 mg PO QDAY famotidine 20 mg tablet 20 mg PO BID atorvastatin [Lipitor] 40 mg tablet 40 mg PO QDAY cetirizine [24Hour Allergy] 10 mg tablet 10 mg PO DAILY PRN (Reason: allergy symptoms) cholecalciferol (vitamin D3) 50 mcg (2,000 unit) capsule 50 mcg PO DAILY Other Ambulatory Orders: 12 Lead EKG (Routine) Location: None Selected Ordered By: Dr. Alfa Pruitt Referrals / Follow Up: ELO OGDEN MD [Primary Care Provider, Family Practice] Disposition Disposition (needs filled in before D/C Order can be placed): Home, Self Care
--- NOTE | 2025-10-14 10:52 | PCM.POST.ANE ---
Anesthesia: Postop Eval I Current Vital Signs Temperature: 98.1 F Pulse Rate: 110 Blood Pressure: 170/96 Respiratory Rate: 18 Pulse Ox: 100 Oxygen Delivery Method: Simple Mask Oxygen Flow Rate (L/min): 6 Assessment Airway patent: Yes Spontaneous unlabored respirations: Yes Mental status: Awake and Calm nausea: No Vomiting: No Anesthesia Complication: No Fluid Hydration Crystalloid volume administer (ml): 1,700 Total IV fluid infused: 1,700 Progress Note Anesthesia document: Postop Eval 1 completed: Yes
[2025-10-14 11:25] LABS: PTHIN 30 pg/mL (11-61)
--- NOTE | 2025-10-14 16:33 | POSTOPAN2_ITS ---
Anesthesia Postop Eval I Sum Postop Eval Completion status Anesthesia document: Postop Eval 1 completed: Yes Anesthesia Postop Eval I Summary Anesthesia Postop Eval I Summary: Anesthesia Postop Eval I: Assessment Summary Airway patent Yes 10/14/25 10:52 FLUE GAS ANALYST.SKOBY Spontaneous unlabored Yes 10/14/25 10:52 FLUE GAS ANALYST.PETER respirations Mental status Awake,Calm 10/14/25 10:52 FLUE GAS ANALYST.SAMOBVenus nausea No 10/14/25 10:52 FLUE GAS ANALYST.SAMOBVenus Vomiting No 10/14/25 10:52 FLUE GAS ANALYST.SAMOBVenus Anesthesia Postop Eval I: Fluid Summary Crystalloid volume administer 1,700 10/14/25 10:52 FLUE GAS ANALYST.SKOBY (ml) Colloids volume administered ( ml) Blood Product volume administered (ml) Total IV fluid infused 1,700 10/14/25 10:52 FLUE GAS ANALYST.PETER Anesthesia Postop Eval I: Summary Notes Anesthesia Complication No 10/14/25 10:52 FLUE GAS ANALYST.PETER Anesthesia Complication Comment: Post-operative progress note Anesthesia: Postop Eval II Evaluation Mental status: Awake and Calm Pain Level: 1 nausea: No Vomiting: No
--- NOTE | 2025-10-14 16:33 | PCM.POSTANE2 ---
Anesthesia Postop Eval I Sum Postop Eval Completion status Anesthesia document: Postop Eval 1 completed: Yes Anesthesia Postop Eval I Summary Anesthesia Postop Eval I Summary: Anesthesia Postop Eval I: Assessment Summary Airway patent Yes 10/14/25 10:52 [email or web address] Spontaneous unlabored Yes 10/14/25 10:52 RIBBON [email or web address] respirations Mental status Awake,Calm 10/14/25 10:52 RIBBON [email or web address].SAMOBVenus nausea No 10/14/25 10:52 RIBBON [email or web address].SAMOBVenus Vomiting No 10/14/25 10:52 RIBBON [email or web address].SAMOBVenus Anesthesia Postop Eval I: Fluid Summary Crystalloid volume administer 1,700 10/14/25 10:52 [email or web address] (ml) Colloids volume administered ( ml) Blood Product volume administered (ml) Total IV fluid infused 1,700 10/14/25 10:52 RIBBON [email or web address].[email or web address] Anesthesia Postop Eval I: Summary Notes Anesthesia Complication No 10/14/25 10:52 [email or web address] [email or web address] Anesthesia Complication Comment: Post-operative progress note Anesthesia: Postop Eval II Evaluation Mental status: Awake and Calm Pain Level: 1 nausea: No Vomiting: No
== END 2025-10-14 15:00 | disposition home or self-care (01) ==
LOC: SDC 05:52 → AC 05:54
PROVIDERS: Anesthesiology; PCP Family Medicine; Referring Provider Surgery; Visit Provider Surgery
DX: E21.0 Primary hyperparathyroidism (principal); E11.9 Type 2 diabetes mellitus without complications; K21.9 Gastro-esophageal reflux disease without esophagitis; I10 Essential (primary) hypertension; Z79.84 Long term (current) use of oral hypoglycemic drugs; E04.1 Nontoxic single thyroid nodule; D35.1 Benign neoplasm of parathyroid gland; R79.89 Other specified abnormal findings of blood chemistry; Z85.3 Personal history of malignant neoplasm of breast; Z90.49 Acquired absence of other specified parts of digestive tract; Z98.51 Tubal ligation status
CPT/HCPCS: 60500; 00320; 36415; 80048; 82962; 83036; 83970; 88305; 88331; 93005; A4648; J2405

== ENCOUNTER → 2025-10-22 | Outpatient (CLI) | payer OTHER, SELFPAY ==
[2025-10-22 13:21] LABS: Calcium 9.3 mg/dL (7.6-11.0); PTHIN 97 pg/mL (11-61)
== END | disposition home or self-care (01) ==
LOC: LAB 11:23
PROVIDERS: PCP Family Medicine; Referring Provider Surgery; Visit Provider Surgery
DX: D35.1 Benign neoplasm of parathyroid gland (principal)
CPT/HCPCS: 36415; 82310; 83970